=== PATIENT | female | born 1940 | race Caucasian/White ===

== ENCOUNTER → 2018-02-02 12:26 | Outpatient (CLI) | payer MEDICARE, SELFPAY ==
[2018-02-02 13:28] LABS: AST(SGOT) 16 U/L (15-37); Alanine Aminotransfer ALT/SGPT 22 U/L (13-56); Albumin, Serum 3.9 g/dL (3.2-5.0); Alkaline Phosphatase 76 U/L (45-117); Bilirubin, Direct 0.22 mg/dL (0.00-0.30); Cholesterol 163 mg/dL (200); Globulin 3.3 g/dL (2.2-4.2); High Density Lipoprotein 60 mg/dL; Protein, Total 7.2 g/dL (6.4-8.2); Triglycerides 207 mg/dL; Very Low Density Lipoprotein 41 mg/dL (5-40)
== END ==
PROVIDERS: Family Provider Internal Medicine; PCP Internal Medicine; Visit Provider Physician Assistant Medical
DX: E78.5 Hyperlipidemia, unspecified (principal); Z79.899 Other long term (current) drug therapy
CPT/HCPCS: 36415; 80061; 80076

== ENCOUNTER → 2018-07-01 16:36 | Outpatient (CLI) | payer MEDICARE, SELFPAY ==
[2018-07-01 17:35] LABS: Absolute Lymphocyte Count 1.42 X10^3/ul (0.83-4.51); Absolute Neutrophil Count 2.9 X10^3/uL (2.0-7.7); Basophil# 0.04 X10^3/uL; Basophil% 0.8 % (0-1); Eosinophil# 0.09 X10^3/uL; Eosinophils% 1.8 % (0-5); Hematocrit 41.8 % (37-47); Hemoglobin 13.4 g/dl (12.0-15.0); Lymphocyte # 1.42 X10^3/ul (4.0); Mean Corp Hgb Conc 32.1 g/gl (32-36); Mean Corpuscular Hgb 30.5 pg (27.0-32.0); Mean Platelet Vol. 10.2 fl (6.2-12.0); Monocyte# 0.48 X10^3/uL; Monocyte% 9.8 % (0-10); Neutrophil # 2.86 X10^3/uL (2.7-7.7); Neutrophil % 58.4 % (47-70); Platelet Count 183 K/mm3 (150-450); RBC Distribution Width CV 13.8 % (11.6-14.6); RBC Distribution Width SD 47.8 fl (35.1-43.9); White Blood Count 4.9 K/mm3 (4.4-11.0)
[2018-07-01 17:43] LABS: Prothrombin Time (Protime)PT. 13.3 SECONDS (11.7-14.9)
[2018-07-01 18:13] LABS: Anion Gap 9 (5-15); BUN 18 mg/dL (7-18); BUN/Creat Ratio 18.1 RATIO (10-20); Calcium,Total 9.3 mg/dL (8.5-10.1); Chloride 103 mmol/L (98-107); EST Glomerular Filtration Rate 58 mL/min (>60); Est Glom Filt Rate - Afr Amer 70 mL/min (>60); Glucose 114 mg/dL (74-106); Potassium 3.3 mmol/L (3.5-5.1); Sodium Level 140 mmol/L (136-145)
[2018-07-01 18:36] LABS: POSITIVE COUNT NO; POSITIVE DIFFERENTIAL NO; POSITIVE MORPHOLOGY NO
== END ==
PROVIDERS: Family Provider Internal Medicine; PCP Internal Medicine; Visit Provider Physician Assistant Medical
DX: I25.10 Atherosclerotic heart disease of native coronary artery without angina pectoris (principal); R06.09 Other forms of dyspnea; I10 Essential (primary) hypertension; E78.5 Hyperlipidemia, unspecified; R94.39 Abnormal result of other cardiovascular function study
CPT/HCPCS: 36415; 71046; 80048; 83880; 85025; 85610

== ENCOUNTER 2018-07-13 08:45 | Day surgery (SDC) | payer MEDICARE, SELFPAY ==
[2018-07-10 13:28] VITALS: BMI 28.3
--- NOTE | 2018-07-13 11:04 | CL.D_ITS ---
Patient Name: CONI ESTRADA Study Date: 07/13/2018 Performing: Parminder Tam MD Ht: 59.84 inches 152 cm : 1940 Wt: 145.51 lbs 66 kg Age: 78 Gender: female BSA: 1.63 PROCEDURE(S) PERFORMED [id number]/LV CLINICAL PROFILE AND INDICATIONS Indications: Stable Known CAD Heart Failure: None Stress/Imaging Stress Test w/SPECT MPI: Yes Result: Positive Low RiskStress Test with SPECT MPI: Positive Low Risk CAD Presentations: No Sxs, no angina. CONCLUSIONS Mild in-stent stenosis of the proximal right coronary artery stent with mild diffuse disease noted. RECOMMENDATIONS Medical therapy DESCRIPTION OF PROCEDURE The patient arrived to the procedure lab. The risks and benefits of the procedure as well as a full d escription of our services here and current unavailability of surgical backup were fully explained to the patient and/or their significant other prior to the catheterization. The Timeout was completed, verifying the correct patient and procedure. The patient's procedural site was prepped and draped in the usual fashion. Local anesthetic was given subcutaneously to right radial region with Lidocaine 2% . Using a modified Seldinger technique, arterial access was obtained via the right radial artery, a 6 Fr sheath was inserted. Left Coronary Artery selective angiography was performed in multiple views u sing a 5 Fr. 4.0 [place] catheter. Left Coronary Artery selective angiography was performed in multiple views using a 5 Fr. 4.0 [place] catheter. Right Coronary Artery selective angiography was then perform ed in multiple views using a 5 Fr. 4.0 [place] catheter. Left Ventriculography was performed in [place] pro jection using a 5 Fr. Pigtail catheter. LV to AO pullback pressures were then recorded.The arterial s victor manuel was pulled and manual compression applied until hemostasis is achieved. CORONARY ANGIOGRAPHY DOMINANCE: Right Dominant LEFT HEART ASSESSMENT Left Ventricular Ejection Fraction: by LV Gram 65 % Normal Left Ventricular systolic function LEFT MAIN: Angiographically normal LEFT ANTERIOR DECENDING ARTERY: MID LAD: Previously placed stent is patent DIAGONAL 1: Ostial - 60 % Stenosis CIRCUMFLEX ARTERY: Mild luminal irregularities RIGHT CORONARY ARTERY: PROX RCA: Previously placed stent has an instent 30 % restenosis RT PDA: Ostial - 70 % Stenosis COMPLICATIONS No Complications PROCEDURE MEDICATIONS Fentanyl 50 mcg IV Versed 1 mg IV Oxygen: 2 L/min via nasal cannula Heparin given IA 07/13/2018 10:37:14 Verapamil 2.5mg, Ntg 100mcgs, 2000 units of Heparin given IA 07/13/2018 10:37:14 SUMMARY OF HEMODYNAMIC DATA Time AIR REST ECG 10:17:47 AO 124/55 (86) SA 10:39:29 LV 126/1, 14 10:45:32 LV 144/3, 20 10:45:38 LV 138/6, 12 10:47:38 LV 139/4, 20 10:47:45 LVp 149/17, 47 10:47:52 AOp 157/69 (109) 10:47:57 Signed By Parminder Tam MD On 07/13/2018 11:03:50 AM Parminder Tam MD
== END 2018-07-13 13:52 | disposition home or self-care (01) ==
PROVIDERS: Family Provider Internal Medicine; PCP Internal Medicine; Visit Provider Internal Medicine Cardiovascular Disease
DX: I25.10 Atherosclerotic heart disease of native coronary artery without angina pectoris (principal); I10 Essential (primary) hypertension; E78.5 Hyperlipidemia, unspecified; I25.2 Old myocardial infarction; K21.9 Gastro-esophageal reflux disease without esophagitis; I27.21 Secondary pulmonary arterial hypertension; R00.2 Palpitations; R06.09 Other forms of dyspnea; R94.39 Abnormal result of other cardiovascular function study; Z95.5 Presence of coronary angioplasty implant and graft; Z87.891 Personal history of nicotine dependence
CPT/HCPCS: 93458; 99152; 99153; J7040; Q9967; C1769; C1894

== ENCOUNTER → 2019-11-10 14:33 | Outpatient (CLI) | payer MEDICARE, SELFPAY ==
[2019-11-10 12:04] VITALS: BMI 27.3
[2019-11-10 17:38] LABS: AST(SGOT) 16 U/L (15-37); Alanine Aminotransfer ALT/SGPT 29 U/L (13-56); Albumin, Serum 3.8 g/dL (3.2-5.0); Alkaline Phosphatase 82 U/L (45-117); Anion Gap 6 (5-15); BUN 19 mg/dL (7-18); BUN/Creat Ratio 18.1 RATIO (10-20); Calcium,Total 9.4 mg/dL (8.5-10.1); Chloride 106 mmol/L (98-107); Cholesterol 122 mg/dL (200); Creatinine, Serum 1.05 mg/dL (0.55-1.02); EST Glomerular Filtration Rate 54 mL/min (>60); Est Glom Filt Rate - Afr Amer 65 mL/min (>60); Globulin 3.3 g/dL (2.2-4.2); Glucose 123 mg/dL (74-106); High Density Lipoprotein 43 mg/dL; Potassium 3.7 mmol/L (3.5-5.1); Protein, Total 7.1 g/dL (6.4-8.2); Sodium Level 139 mmol/L (136-145); Triglycerides 227 mg/dL; Very Low Density Lipoprotein 45 mg/dL (5-40)
== END ==
PROVIDERS: Family Provider Internal Medicine; PCP Internal Medicine; Referring Provider Internal Medicine Cardiovascular Disease; Visit Provider Internal Medicine Cardiovascular Disease
DX: E78.00 Pure hypercholesterolemia, unspecified (principal); Z95.5 Presence of coronary angioplasty implant and graft
CPT/HCPCS: 36415; 80048; 80061; 80076

== ENCOUNTER → 2019-11-19 12:39 | Outpatient (CLI) | payer MEDICARE, SELFPAY ==
[2019-11-10 12:04] VITALS: BMI 27.3
--- NOTE | 2019-11-19 12:40 | CDU_ITS ---
Reason For Study: Stenosis Rt. Velocities/BP Lt. Velocities/BP Prox CCA 80.2/12.6 cm/sec. Prox CCA 50.9/14.6 cm/sec. Mid CCA 94.9/17.6 cm/sec. Mid CCA 67.3/22.3 cm/sec. Dist CCA 70.6/16.8 cm/sec. Dist CCA 54.2/16.83 cm/sec. Prox ICA 148.5/48 cm/sec. Prox ICA 78.3/20.1 cm/sec. Mid ICA 97.4/24.3 cm/sec. Mid ICA 138.9/38 cm/sec. Dist ICA 66.3/21.2 cm/sec. Dist ICA 137.5/29.8 cm/sec. Rt. ICA/CCA = 1.9. Lt. ICA/CCA = 2.6. Prox ECA 149.9/9.4 cm/sec. Lt. Vert. 86.4/22.5 cm/sec. Rt. Vert. 48.7/9.1 cm/sec. Right Extracranial There is homogeneous, smooth atherosclerotic plaque noted in the right common carotid artery. There is heterogeneous, irregular atherosclerotic plaque noted in the right internal carotid artery. There is heterogeneous, irregular atherosclerotic plaque noted in the right external carotid artery. Antegrade flow is noted in the right vertebral artery. There is heterogeneous, irregular atherosclerotic plaque noted in the right bulb. Left Extracranial There is heterogeneous, irregular atherosclerotic plaque noted in the left common carotid artery. There is intimal thickening but no significant atherosclerotic plaque noted in the left internal carotid artery. The left internal carotid artery is very tortuous. 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 Antegrade flow is noted in the left vertebral artery. Procedure Carotid Duplex [id number]. Exam performed in department. 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 <50% stenosis right external carotid Intimal thickening left internal carotid with 50-69% stenosis Occluded left external carotid Patent,antegrade bilateral vertebrals Progression of disease since the previous exam of 08/31/15 Ordering Physician: Parminder Tam Referring Physician: Demetrice Sung Performed By: Ninfa Angulo RVT
== END ==
PROVIDERS: PCP Internal Medicine; Referring Provider Internal Medicine Cardiovascular Disease; Visit Provider Internal Medicine Cardiovascular Disease
DX: I65.22 Occlusion and stenosis of left carotid artery (principal)
CPT/HCPCS: 93880

== ENCOUNTER → 2019-12-13 | Outpatient (CLI) | payer MEDICARE, SELFPAY ==
[2019-12-13 13:47] VITALS: BMI 27.3
--- NOTE | 2019-12-13 14:16 | RAD_ITS ---
STUDY: X-RAY CHEST REASON FOR EXAM: Female, 79 years old. ABNORMAL LUNG SOUNDS, CRACKLES LEFT SIDE, INTERMITTENT COUGH TECHNIQUE: PA and lateral views of the chest. COMPARISON: 07/01/2018 FINDINGS: The lungs are clear and expanded. There is no demonstrated pleural abnormality. Normal size heart. Normal mediastinum and hilton. Normal visualized pulmonary arteries. Normal visualized aortic arch and descending thoracic aorta. Normal visualized thoracic spine. Normal visualized ribs, clavicles, and shoulders. There is no demonstrated abnormality of the visualized soft tissue structures of the upper abdomen. RAD/Chest PA and Lateral IMPRESSION: Normal x-ray examination of the chest. Electronically Signed: Junito Urbina DO at 16:18 EST Tel , Service support ,
== END | disposition home or self-care (01) ==
LOC: RAD 14:16
PROVIDERS: PCP Internal Medicine; Referring Provider Surgery; Visit Provider Surgery
DX: R09.89 Other specified symptoms and signs involving the circulatory and respiratory systems (principal)
CPT/HCPCS: 71046

== ENCOUNTER → 2020-08-10 | Outpatient (CLI) | payer MEDICARE, SELFPAY ==
[2020-08-10 09:27] VITALS: BMI 26.8
--- NOTE | 2020-08-10 10:20 | RAD_ITS ---
STUDY: X-RAY CHEST REASON FOR EXAM: Female, 80 years old. intermittent anterior left sided CP x 1 month, some SOB TECHNIQUE: PA and lateral views of the chest. COMPARISON: 12/13/2019 FINDINGS: The lungs are clear and expanded. There is no demonstrated pleural abnormality. Normal size heart. Normal mediastinum and hilton. Normal visualized pulmonary arteries. Normal visualized aortic arch and descending thoracic aorta. Normal visualized thoracic spine. Normal visualized ribs, clavicles, and shoulders. There is no demonstrated abnormality of the visualized soft tissue structures of the upper abdomen. RAD/Chest PA and Lateral IMPRESSION: Normal x-ray examination of the chest. Electronically Signed: Ayaan Johnson MD at 13:52 EDT Tel , Service support ,
== END | disposition home or self-care (01) ==
LOC: RAD 10:20
PROVIDERS: PCP Internal Medicine; Visit Provider Physician Assistant Medical
DX: R07.9 Chest pain, unspecified (principal)
CPT/HCPCS: 71046

== ENCOUNTER → 2020-08-28 11:09 | Outpatient (CLI) | payer MEDICARE, SELFPAY ==
[2020-08-10 09:27] VITALS: BMI 26.8
--- NOTE | 2020-08-28 14:07 | STRESSREP ---
Stress Test Report Pharmacologic myocardial perfusion stress test. 80-year-old lady with a history of chest pain. Stress protocol: Resting KG demonstrates normal sinus rhythm with a rate of 83 bpm premature ventricular complexes are noted resting blood pressure is 140/80 mmHg. 0.4 mg of regadenoson was infused per usual protocol followed by Intravenous saline flush injection continuous EKG monitoring was performed. Patient maintained sinus rhythm with frequent premature ventricular complexes noted and occasional ventricular bigeminy present. Nonspecific ST-T wave changes were noted. The maximum heart rate was 131 bpm which was 92% of maximum predicted heart rate the maximum workload was 1met the final blood pressure was 150/70 mmHg. Myocardial perfusion protocol. 11.7 mCi of technetium 99m sestamibi was injected at rest. 0.4 mg of regadenoson was infused per usual protocol peak infusion 35.9 mCi of technetium 99m sestamibi was injected stress images were obtained stress and rest images were reconstructed and compared in the short axis vertical and horizontal long axis. Gated images were also obtained Perfusion SPECT analysis: Review of the stress images demonstrate normal uptake of tracer noted in all areas of myocardium the resting images similarly demonstrate normal uptake of tracer noted in all areas of myocardium. No reversibility is noted suggest ischemia. Gated SPECT analysis: The gated ejection fraction is 65%. Conclusion: Normal pharmacologic myocardial perfusion stress test. Preserved ejection fraction.
== END ==
PROVIDERS: PCP Internal Medicine; Referring Provider Physician Assistant Medical; Visit Provider Physician Assistant Medical
DX: I25.10 Atherosclerotic heart disease of native coronary artery without angina pectoris (principal); R07.9 Chest pain, unspecified
CPT/HCPCS: 78452; 93017; A9500; A4216; J2785

== ENCOUNTER 2020-10-10 10:01 | Observation (INO) | payer MEDICARE, SELFPAY ==
[2020-08-29 09:35] VITALS: BMI 26.8
[2020-10-10] VITALS (9 sets, daily range): BP systolic 140–191; BP diastolic 44–97; PULSE 61–82; RESP 16–20; TEMP 36.4–36.7; O2SAT 95–98; BMI 26.4; BMI 27.0
--- NOTE | 2020-10-10 10:05 | EKG12_ITS ---
Test Reason : CP Blood Pressure : / mmHG Vent. Rate : 081 BPM Atrial Rate : 081 BPM P-R Int : 098 ms QRS Dur : 070 ms QT Int : 374 ms P-R-T Axes : 040 007 002 degrees QTc Int : 434 ms Sinus rhythm with short TX with occasional and consecutive Premature ventricular complexes Possible Left atrial enlargement Nonspecific ST and T wave abnormality Abnormal ECG Confirmed by DELFINA MAGANA, MARISOL ([id number]), medical editor LOYDA HAIR ([id number]) on 10/19/2020 12:32:43 PM Referred By: ROSSANA/LULY Confirmed By:BRIAN MATHIS MD
--- NOTE | 2020-10-10 10:18 | EKG12_ITS ---
Test Reason : Blood Pressure : / mmHG Vent. Rate : 084 BPM Atrial Rate : 084 BPM P-R Int : 140 ms QRS Dur : 074 ms QT Int : 380 ms P-R-T Axes : 059 018 -22 degrees QTc Int : 449 ms Sinus rhythm with occasional Premature ventricular complexes Nonspecific ST and T wave abnormality Abnormal ECG Confirmed by NARGIS MAGANA, RHETT ([id number]), newspaper copy editor ANGEL LUIS NINO ([id number]) on 10/12/2020 8:27:37 AM Referred By: EFRAIN Confirmed By:RHETT BARILLAS MD
--- NOTE | 2020-10-10 10:22 | ED.DCSUM_ITS ---
History of Present Illness Chief Complaint: Chest Pain Informant: Patient Narrative: Patient is a 80-year-old female with a past medical history of CAD with stents placed who presents to the emergency department for chest pain on the left side. It started this morning. She tried taking nitro which did not give significant relief. She is currently complaining of 5 out of 10 pain. It initially might have went up to on the left side of her neck but otherwise no radiation to her back or down her arms. She denies any nausea vomiting. She is on Plavix and aspirin did take this prior to coming in today. No abdominal pain. No swelling in her legs or pain in her cast. She has no history of DVT/PE. She denies any recent illness including any cough or fever/chills. She did have a stress test a little over 1 month ago which she states was normal. Past Medical History - Allergies and Home Meds Allergies/Adverse Reactions: Allergies hydrocodone bitartrate [From Vicodin] Adverse Reaction (Verified 08/29/20 09:31) Other metronidazole Adverse Reaction (Verified 08/29/20 09:31) nausea Prior records reviewed: Yes Surgical History: appendectomy, colectomy Smoking Status: Former smoker - Family History Paternal Family History: Family History (Last Reviewed 08/30/20 @ 10:[address] Daniel Block MD) Father Cancer Review of Systems All systems negative except as indicated General: Denies: Chills, Fever, Sweats Eyes: Denies: Visual changes - bilaterally, Diplopia ENT: Denies: Rhinorrhea, Sore throat Cardiovascular: Reports: Chest pain. Denies: Palpitations Respiratory: Denies: Dyspnea, Cough, Dyspnea on exertion Gastrointestinal: Denies: Abdominal pain, Nausea, Vomiting, Diarrhea Genitourinary: Denies: Dysuria, Hematuria, Frequency Musculoskeletal: Denies: Back pain, Extremity Pain Skin: Denies: Rash, Wounds Neurological: Denies: Headache, Weakness, Numbness Physical Exam Vital Signs/Narrative: Vital Signs Temp Pulse Resp BP Pulse Ox 10/10/20 10:03 97.6 F L 78 20 H 185/83 H 96 Inital Vital Signs reviewed: Yes General: Well nourished, Well developed, No Acute Distress Head: Normocephalic, Atraumatic Eyes: Perrl, EOMI ENT: Moist mucous membranes, No rhinorrhea Neck: Supple, Nontender Cardiovascular: Regular rate, Regular rhythm, No murmurs Respiratory: No distress, CTA bilaterally, Chest nontender Abdomen: Soft, Nontender, Nondistended, Normal bowel sounds Back: Nontender, Normal Inspection Extremities: Nontender, Edema - Trace bilaterally of lower extremities, symmetrical.. Negative for: Calf Tenderness Skin: Normal color, No rash Neurological: Alert, Oriented x3, Cranial nerves II-XII grossly intact, Normal Strength, Normal Sensation Psychological: Normal affect, Normal Mood Diagnostic/Tx/Re-eval Chest X-Ray - ED: - - Clear lung tomas bilaterally. Enlarged cardiac silhouette. Normal mediastinum. Agree with radiologist interpretation. - EKG Initial EKG Interpretation: - - EKG interpretation: Rate of 81 bpm and a normal sinus rhythm. DE interval of 98. PVCs present. Normal axis. No significant ST elevations or depressions. - Medical Decision Making Patient presents to the ED for chest pain. She does have a history of CAD with 2 stents. Upon arrival to the emerge department she is in no acute distress. Still complaining of pain despite taking nitro. Will check EKG, chest x-ray and basic lab work. Patient's troponin within normal limits. She is given a dose of morphine for symptomatic treatment. Given her history of CAD with active chest pain will bring her to the hospital for further evaluation and management. She otherwise has been stable throughout ED stay. Patient understands and is agreeable this plan. All questions answered. ED Disposition - Plan for ED Patient: Disposition: Acute Care Hospital [facility] Diagnosis: Unstable angina
[2020-10-10 10:31] LABS: Absolute Lymphocyte Count 1.51 X10^3/uL (0.83-4.51); Absolute Neutrophil Count 5.3 X10^3/uL (2.0-7.7); Basophil# 0.05 X10^3/uL; Basophil% 0.7 % (0-1); Eosinophil# 0.04 X10^3/uL; Eosinophils% 0.5 % (0-5); Hematocrit 48.1 % (37-47); Hemoglobin 15.7 g/dL (12.0-15.0); Lymphocyte # 1.51 X10^3/ul (4.0); Lymphocyte % 20.6 % (19-41); Mean Corp Hgb Conc 32.6 g/dL (32-36); Mean Corpuscular Hgb 30.7 pg (27.0-32.0); Mean Corpuscular Volume 93.9 fL (81-99); Mean Platelet Vol. 11.8 fl (6.2-12.0); Monocyte# 0.39 X10^3/uL; Monocyte% 5.3 % (0-10); NRBC Flagged by Analyzer 0 % (0-5); Neutrophil # 5.33 X10^3/uL (2.7-7.7); Neutrophil % 72.6 % (47-70); Platelet Count 148 K/mm3 (150-450); RBC Distribution Width CV 13.8 % (11.6-14.6); RBC Distribution Width SD 46.7 fl (35.1-43.9); Red Blood Count 5.12 M/mm3 (4.2-5.4); White Blood Count 7.3 K/mm3 (4.4-11.0)
--- NOTE | 2020-10-10 10:35 | RAD_ITS ---
STUDY: X-RAY CHEST REASON FOR EXAM: Female, 80 years old. CHEST PAINS HX OF PR PER PATIENT. TECHNIQUE: Single AP portable view of the chest. COMPARISON: None. FINDINGS: EKG electrodes are seen. Hyperinflation. The lungs are clear. There is no demonstrated pleural abnormality. Normal size heart. Normal mediastinum and hilton. Normal visualized pulmonary arteries. There is atherosclerotic calcification of the aortic arch with tortuosity. There are degenerative changes of the visualized thoracic spine. Normal visualized ribs, clavicles, and shoulders. There is no demonstrated abnormality of the visualized soft tissue structures of the upper abdomen. RAD/Chest 1 View (Portable) IMPRESSION: Hyperinflation. The lungs are clear. Electronically Signed: Ameya Singh, at 11:07 EST , Service support ,
[2020-10-10 10:49] LABS: Anion Gap 6 (5-15); BUN 20 mg/dL (7-18); BUN/Creat Ratio 20.4 RATIO (10-20); Calcium,Total 9.6 mg/dL (8.5-10.1); Chloride 105 mmol/L (98-107); Creatinine, Serum 0.98 mg/dL (0.55-1.02); EST Glomerular Filtration Rate 58 mL/min (>60); Est Glom Filt Rate - Afr Amer 71 mL/min (>60); Glucose 130 mg/dL (74-106); Potassium 3.7 mmol/L (3.5-5.1); Sodium Level 141 mmol/L (136-145)
[2020-10-10] MEDS: Morphine 4 MG/ML Syringe 2 MG IV (10:56)
--- NOTE | 2020-10-10 11:49 | NURSING ---
DR ZUNIGA FOR DR TRACY
--- NOTE | 2020-10-10 11:54 | NURSING ---
PCU RIZWANA ZUNIGA OBS
--- NOTE | 2020-10-10 11:54 | NURSING ---
DR ZUNIGA IN ER
--- NOTE | 2020-10-10 12:17 | PCM.HP.STD ---
Problem List (1) Unstable angina Status: Acute (2) Hx of cataract extraction Status: Chronic Comment: Left eye (3) Bilateral carotid artery stenosis Status: Chronic (4) History of esophagogastroduodenoscopy (EGD) Status: Chronic (5) Diverticulosis Status: Chronic (6) Hemorrhoids Status: Chronic (7) History of bacterial pneumonia Status: Resolved (8) Osteoarthritis Status: Chronic (9) Carotid artery stenosis Status: Chronic (10) History of Helicobacter pylori infection Status: Resolved (11) Renal cysts, acquired, bilateral Status: Chronic (12) LVH (left ventricular hypertrophy) Status: Chronic (13) Celiac artery stenosis Status: Chronic (14) Dysphagia Status: Acute (15) History of excision of pilonidal cyst Status: Resolved (16) History of laparoscopic cholecystectomy Status: Resolved (17) History of laparoscopic appendectomy Status: Resolved (18) History of tubal ligation Status: Resolved (19) History of hysterectomy Status: Resolved (20) historybladder surgery Status: Resolved (21) History of bladder surgery Status: Resolved (22) GERD (gastroesophageal reflux disease) Status: Chronic Qualifiers: Esophagitis presence: with esophagitis Esophagitis bleeding: without hemorrhage Qualified Code(s): K21.00 - Gastro-esophageal reflux disease with esophagitis, without bleeding (23) History of left heart catheterization Status: Resolved (24) Atherosclerotic heart disease of [place] coronary artery without angina pectoris Status: Chronic Qualifiers: [place] vs. transplanted heart: [place] heart Qualified Code(s): I25.10 - Atherosclerotic heart disease of [place] coronary artery without angina pectoris Comment: PCI-JUAN-Mid LAD 3.0 x 20 mm Promus and Right PDA 2.5 x 12 mm Promus 12/07/2012 (25) NSTEMI (non-ST elevated myocardial infarction) Status: Chronic (26) History of coronary artery stent placement Status: Chronic Comment: PCI-JUAN-LAD 3.0 x 20 mm Promus and Right PDA 2.5 x 12 mm Promus 12/07/2012 (27) Essential (primary) hypertension Status: Chronic (28) Secondary pulmonary arterial hypertension Status: Chronic (29) HLD (hyperlipidemia) Status: Chronic Qualifiers: Hyperlipidemia type: pure hypercholesterolemia Qualified Code(s): E78.00 - Pure hypercholesterolemia, unspecified (30) Left carotid stenosis Status: Chronic (31) Carotid bruit Status: Chronic History of Present Illness Date of Admission: 10/10/20 Chief Complaint: Chest pain in the morning today The patient is a 80 year old F with history of coronary artery disease status post stent in mid LAD and proximal RCA in 2012 came to ED with sudden onset of left-sided chest pressure with radiation to left carotid. She described her pain as vague pressure-like 3-4/10 intensity, with no exacerbating factor or relieving factor. It did not respond to sublingual nitro. She also had associated mild shortness of breath, dizziness and nausea but no vomiting. No syncope. She had cardiac cath in June [address] Tam which showed D1 ostial 60%, proximal RCA in-stent 30%, ostial right PDA 70% stenosis and medical therapy was recommended. She saw [facility] cardiology in July 2020 for chest pain and had pharmacological nuclear stress test which was negative EF 65%.. She further had stress test in August 2020 which is reported as normal. She also had epigastric pain for which her PCP treated with Carafate.] In ED, BP is elevated 185/83, 171/82 but heart rate and pulse ox are normal. EKG shows normal sinus rhythm with PVCs, with short NV interval 98 ms with no significant change from. Previous EKG in July 2020 was similar sinus rhythm short NV interval, frequent PVCs with left atrial enlargement. Past Medical History Past Medical History (Chronic Problems): Chronic Problems (Last Reviewed 08/30/20 @ 10:[address] Daniel Block MD) Hx of cataract extraction (Chronic) Left eye Bilateral carotid artery stenosis (Chronic) History of esophagogastroduodenoscopy (EGD) (Chronic) Diverticulosis (Chronic) Hemorrhoids (Chronic) Osteoarthritis (Chronic) Carotid artery stenosis (Chronic) Renal cysts, acquired, bilateral (Chronic) LVH (left ventricular hypertrophy) (Chronic) Celiac artery stenosis (Chronic) GERD (gastroesophageal reflux disease) (Chronic) Atherosclerotic heart disease of [place] coronary artery without angina pectoris (Chronic) PCI-JUAN-Mid LAD 3.0 x 20 mm Promus and Right PDA 2.5 x 12 mm Promus 12/07/2012 NSTEMI (non-ST elevated myocardial infarction) (Chronic) History of coronary artery stent placement (Chronic 12/07/12) PCI-JUAN-LAD 3.0 x 20 mm Promus and Right PDA 2.5 x 12 mm Promus 12/07/2012 Essential (primary) hypertension (Chronic) Secondary pulmonary arterial hypertension (Chronic) HLD (hyperlipidemia) (Chronic) Left carotid stenosis (Chronic) Carotid bruit (Chronic) Medical History: Medical History (Last Reviewed 08/30/20 @ 10:[address] Daniel Block MD) Bilateral carotid artery stenosis (Acute) I65.23 Diverticulosis (Chronic) K57.90 Hemorrhoids (Chronic) K64.9 History of bacterial pneumonia (Resolved) Z87.01 Osteoarthritis (Chronic) M19.90 Carotid artery stenosis (Chronic) I65.29 History of Helicobacter pylori infection (Resolved) Z86.19 Renal cysts, acquired, bilateral (Chronic) N28.1 LVH (left ventricular hypertrophy) (Chronic) I51.7 Celiac artery stenosis (Chronic) I77.4 Dysphagia (Acute) R13.10 GERD (gastroesophageal reflux disease) (Chronic) K21.9 Atherosclerotic heart disease of [place] coronary artery without angina pectoris (Chronic) I25.10 PCI-JUAN-Mid LAD 3.0 x 20 mm Promus and Right PDA 2.5 x 12 mm Promus 12/07/2012 NSTEMI (non-ST elevated myocardial infarction) (Chronic) I21.4 Essential (primary) hypertension (Chronic) I10 Secondary pulmonary arterial hypertension (Chronic) I27.21 HLD (hyperlipidemia) (Chronic) E78.5 Left carotid stenosis (Chronic) I65.22 Carotid bruit (Chronic) R09.89 Acute right hip pain M25.551 Allergies hydrocodone bitartrate [From Vicodin] Adverse Reaction (Verified 08/29/20 09:31) Other metronidazole Adverse Reaction (Verified 08/29/20 09:31) nausea Home Medications: Ambulatory Orders Medication Instructions Recorded Aspirin E.C. [Ecotrin] 81 mg PO DAILY@0800 12/27/13 Atorvastatin Calcium [Lipitor] 40 mg PO QHS 12/27/13 Lisinopril [Zestril] 10 mg PO DAILY 12/27/13 Clopidogrel Bisulfate [Plavix] 75 mg PO DAILY 01/12/17 pantoprazole 40 mg tablet,delayed 40 mg PO BID tab 10/06/18 release psyllium 1 tbsp PO DAILY 03/19/19 nystatin 100,000 unit/gram topical TOPICAL 11/10/19 powder isosorbide mononitrate 60 mg 60 mg PO DAILY #90 tab 08/10/20 tablet,extended release 24 hr olopatadine 0.2 % eye drops 1 drp OPHTHALMIC DAILY 08/29/20 peg 400-propylene glycol 0.4 %-0.3 1 drp OPHTHALMIC BID-TID PRN ml 08/29/20 % eye drops vit C 250 mg-E 200 unit-zinc 40 1 tab PO BID 08/29/20 mg-copper 1 tc-bhbipy-fnbiyt capsule nitroglycerin 0.4 mg sublingual 0.4 mg SUBLINGUAL Q5-15M PRN #25 09/25/20 tablet tab Vit C/E/Zn/Coppr/Lutein/Zeaxan 1 ea PO BID 10/10/20 [Preservision Areds 2 Softgel] Surgical History: Surgical History (Last Reviewed 08/30/20 @ 10:[address] Daniel Block MD) Hx of cataract extraction (Acute) Z98.49 Left eye History of esophagogastroduodenoscopy (EGD) (Acute) Z98.890 History of excision of pilonidal cyst (Resolved) Z98.890 History of laparoscopic cholecystectomy (Resolved) Z90.49 History of laparoscopic appendectomy (Resolved) Z90.49 History of tubal ligation (Resolved) Z98.51 History of hysterectomy (Resolved) Z90.710 historybladder surgery (Resolved) History of bladder surgery (Resolved) Z98.890 History of left heart catheterization (Resolved) Onset Date: 06/2018 Z98.890 History of coronary artery stent placement (Chronic) Onset Date: 12/07/12 Z95.5 PCI-JUAN-LAD 3.0 x 20 mm Promus and Right PDA 2.5 x 12 mm Promus 12/07/2012 Surgical History: appendectomy, colectomy Smoking Status: Former smoker - *Family History Paternal Family History: Family History (Last Reviewed 08/30/20 @ 10:[address] Daniel Block MD) Father Cancer Review of Systems Constitutional: Denies: Chills, Fever, Weight Change HEENT: Denies: Head Aches, Sinus Congestion, Sinus Drainage Cardiovascular: Reports: Chest Pain, Chest Pressure. Denies: Palpitations Respiratory: Denies: Cough, Shortness of breath at rest, Sputum production Gastrointestinal: Denies: Abdominal Pain, Nausea, Vomiting Genitourinary: Denies: Dysuria Musculoskeletal: Denies: Joint Pain, Joint Tenderness Skin: Denies: Rash, Wounds Neurological: Reports: Balance problems. Denies: Focal weakness, Numbness, Tingling Psychiatric: Denies: Anxiety, Depression, Homicidal Ideations, Suicidal Ideations Hematologic/ Lymphatic: Denies: Easy Bruising, Easy Bleeding VTE Information - Inpt Only VTE Present on Admission: No VTE Mechan Device Prophylaxis: None VTE Pharm Prophylaxis ordered?: Yes Objective: Physical exam General: Alert, Oriented x3, Cooperative HEENT: Atraumatic, PERRLA, EOMI, Normocephalic Oral: No Gingival or Mucosal Lesions/ Ulcerations Neck: Supple, No JVD, Negative Carotid Bruits Lungs: Air entry diminished in bilateral lung bases. No crepitation/rhonchi Cardiovascular: Regular rate, Regular Rhythm, Normal S1, Normal S2, frequent PVCs. Midsystolic murmur over left lower sternal border. Abdomen: Bowel Sounds Present, Soft, Non Tender, Non-Distended : No renal angle tenderness. No suprapubic tenderness. Extremities: No edema, Capillary Refill Less than 3 Seconds Skin: No rashes, No breakdown Musculoskeletal: No Tenderness to Palpation of Joints or Extremities Neurological: Cranial nerves II-XII grossly intact, Deep Tendon Reflexes 2+/4 and Symmetrical, Neuro grossly intact Psych/Mental Status: Normal Affect, Appropriate. - Physical Exam Vitals/I&O's: Vital Signs Temp Pulse Resp BP Pulse Ox 97.8 F 72 20 H 171/82 H 97 10/10/20 12:11 10/10/20 12:11 10/10/20 12:11 10/10/20 12:11 10/10/20 12:11 Oxygen Delivery Method Room Air Weight: 140 lb Body Mass Index (BMI) 26.4 Laboratory Results 10/10/20 10:10: WBC 7.3, RBC 5.12, Hgb 15.7 H, Hct 48.1 H, MCV 93.9, MCH 30.7, MCHC 32.6, RDW Std Deviation 46.7 H, RDW Coeff of [place] 13.8, Plt Count 148 L, MPV 11.8, Immature Gran % (Auto) 0.300, Neut % (Auto) 72.6 H, Lymph % (Auto) 20.6, [place] % (Auto) 5.3, Eos % (Auto) 0.5, Baso % (Auto) 0.7, Absolute Neuts (auto) 5.3, Absolute Lymphs (auto) 1.51, Nucleated RBC % 0 10/10/20 10:10: Sodium 141, Potassium 3.7, Chloride 105, Carbon Dioxide 30.0, Anion Gap 6, BUN 20 H, Creatinine 0.98, Estim Creat Clear Calc 35.70, Est GFR (MDRD) Af Amer 71, Est GFR (MDRD) Non-Af 58 L, BUN/Creatinine Ratio 20.4 H, Glucose 130 H, Calcium 9.6, Magnesium 2.0, Troponin I < 0.015 Current Medications Nitroglycerin (Nitroglycerin Oint 1 Inch Packet) 1 inch TD Q6 JUAN A Stop: 10/11/20 18:01 Assessment/Plan All Active Problems (Last Reviewed 08/30/20 @ 10:[address] Daniel Block MD) Unstable angina (Acute) History of bacterial pneumonia (Resolved) History of Helicobacter pylori infection (Resolved) Dysphagia (Acute) History of excision of pilonidal cyst (Resolved) History of laparoscopic cholecystectomy (Resolved) History of laparoscopic appendectomy (Resolved) History of tubal ligation (Resolved) History of hysterectomy (Resolved) historybladder surgery (Resolved) History of bladder surgery (Resolved) History of left heart catheterization (Resolved 06/2018) The patient is a 80 year old F with history of coronary artery disease status post stent in mid LAD and proximal RCA in 2012 came to ED with sudden onset of left-sided chest pressure with radiation to left carotid along with shortness of breath and dizziness and nausea EKG shows normal sinus rhythm with PVCs, with short NV interval 98 ms with no significant change from. Previous EKG in July 2020 was similar sinus rhythm short NV interval, frequent PVCs with left atrial enlargement. 1. Atypical chest pain with suspicion of unstable angina: Patient is being admitted in PCU. Serial troponin enzymes and repeat EKG. nitroglycerin ointment ordered in ER. Will change to Isordil 10 mg p.o. twice daily and titrate up the dose. Patient had recent pharmacological nuclear stress test in about 2019 which was reported normal. BNP, TSH, fasting profile and 2D echo is ordered. 2. Hypertensive urgency: Patient on lisinopril 10 mg daily at home and uptitrate.. Hydralazine 10 mg IV as needed for systolic blood pressure more than 180 mmHg. Coronary artery status post stents in mid LAD and proximal RCA in 2012: cardiac cath in June [address] Tam which showed D1 ostial 60%, proximal RCA in-stent 30%, ostial right PDA 70% stenosis and medical therapy was recommended. She saw [facility] cardiology in July 2020 for chest pain and had pharmacological nuclear stress test which was negative EF 65%. We will continue medical management with aspirin, Plavix, atorvastatin, lisinopril. Patient is not on beta-daniele at home, reason unclear. 3. Peripheral arterial disease: Patient has history of bilateral carotid stenosis, celiac artery stenosis. 4. Other comorbidities include GERD, hypertension, dyslipidemia, diverticulosis and hemorrhoids: Home medication reconciliation done. VTE prophylaxis: On Lovenox 40 mils subcu daily Clinical Impression(s) from Imaging Studies Chest X-Ray 10/10/20 10:35 IMPRESSION: Hyperinflation. The lungs are clear. OBSV E&M: 58774 Observation care discharge
--- NOTE | 2020-10-10 12:34 | ECHOD_ITS ---
Reason For Study: CHEST PAIN Procedure This was a 2D Doppler, Color Flow transthoracic echocardiogram. The exam was of adequate technical quality. Exam performed portable in patient room. Left Ventricle Normal LV size. Left ventricular systolic function is normal. The estimated ejection fraction is 65 %. There is evidence of diastolic dysfunction. No regional wall motion abnormalities noted. Right Ventricle Normal RV size. Normal systolic function. Atria The left atrium is mildly enlarged. Normal right atrium. No doppler evidence for ASD. Mitral Valve There is no mitral annular calcification. Normal mitral valve. Mild (1+) mitral valve insufficiency. Tricuspid Valve Normal tricuspid valve. Moderate (2+) tricuspid valve insufficiency. Right ventricular systolic pressure estimated to be 49 mmHg. Aortic Valve Trisinus/trileaflet aortic valve. Normal aortic valve. Pulmonic Valve The pulmonic valve is not well visualized. Great Vessels Normal sized aortic root. Pericardium/Pleural No pericardial effusion. MMode/2D Measurements & Calculations LVIDd: 4.4 cm IVSd: 1.2 cm Ao root diam: 3.2 cm LVIDs: 3.3 cm LVPWd: 1.3 cm RVDd: 3.0 cm FS: 25.8 % LAV(MOD-bp): 62.7 ml LVAd ap4: 23.1 cm2 SV(MOD-sp4): 35.5 ml LAV(MOD-bp) Indexed: 38.6 ml/m2 EDV(MOD-sp4): 65.4 ml LAV(MOD-sp2): 67.9 ml EDV(sp4-el): 66.9 ml LAV(MOD-sp4): 53.9 ml LVAs ap4: 13.7 cm2 ESV(MOD-sp4): 29.9 ml ESV(sp4-el): 27.6 ml EF(MOD-sp4): 54.3 % EF(sp4-el): 58.8 % SV(sp4-el): 39.4 ml LA A4 area: 20.0 cm2 LA dimension(2D): 3.6 cm RA A4 area: 16.6 cm2 Time Measurements MV dec time: 0.20 sec Doppler Measurements & Calculations MV E max efe: 82.1 cm/sec Lat Peak E' Efe: 6.3 cm/sec Med Peak E' Efe: 5.9 cm/sec MV A max efe: 125.2 cm/sec E/E' lat: 13.1 E/E' med: 13.8 MV E/A: 0.66 MV V2 max: 124.4 cm/sec Ao V2 max: 142.8 cm/sec LV V1 max: 86.9 cm/sec MV max P.2 mmHg Ao max P.2 mmHg LV V1 max P.0 mmHg MV V2 mean: 79.6 cm/sec MV mean P.8 mmHg MV V2 VTI: 29.2 cm PA V2 max: 85.7 cm/sec TR max efe: 338.6 cm/sec MV P1/2t-pr_phl: 92.1 msec TR max P.2 mmHg Interpretation Summary Left ventricular systolic function is normal. The estimated ejection fraction is 65 %. The left atrium is mildly enlarged. Mild (1+) mitral valve insufficiency. Moderate (2+) tricuspid valve insufficiency. Right ventricular systolic pressure estimated to be 49 mmHg. There is evidence of diastolic dysfunction. Ordering Physician: Den Huitron Referring Physician: ANITA FREEMAN Performed By: Gem Peralta, OLIVIA, RVT
[2020-10-10] MEDS: hydrALAZINE 20 MG/ML Vial 10 MG IV (13:01)
[2020-10-10] MEDS: Enoxaparin 40 MG/0.4 ML Syringe SC (13:08)
[2020-10-10] MEDS: proCHLORPERazine 10 MG/2 ML Vial 5 MG IV (13:48)
--- NOTE | 2020-10-10 14:16 | CT_ITS ---
STUDY: CTA CHEST REASON FOR EXAM: Female, 80 years old. CP, ? AORTIC DISSECTION, CAROTID STENOSIS, CELIAC ARTERY DZ, DIVERTICULITIS, HYSTER, BLADDER SURG, HTN, UNSTABLE ANGINA RADIATION DOSAGE (If Supplied By Facility): CTDIvol = ( 11.3 ) mGy, DLP = ( 414.36 ) mGycm TECHNIQUE: The examination was performed with the intravenous administration of IV 100mL [id number]-370. Post-processing of the angiographic images was performed, with multiplanar reformation and 3D reconstruction. Individualized dose optimization techniques were used for this CT. COMPARISON: None. FINDINGS: 4 mm hypodensity in the left lobe of the thyroid. Mild substernal extension of the right lobe of the thyroid. Normal enhancement of the main pulmonary artery and right and left pulmonary arteries. Normal enhancement of the bilateral peripheral pulmonary arteries. There is no demonstrated pulmonary embolism. There is atherosclerotic calcification of the aortic arch and descending thoracic aorta with tortuosity. There is no demonstrated aortic dissection. There are calcifications of the coronary arteries. Normal mediastinum. Normal hilar regions. Normal visualized trachea and bronchi. The lungs are well expanded. Mild degree of increased linear markings at the lung bases suggestive of early atelectasis and/or scarring. Normal pleura. Normal chest wall structures. There are degenerative changes of thoracic spine. Normal visualized upper abdomen. CT/CTA Chest W/WO Contrast IMPRESSION: Atherosclerotic changes of the aortic arch and the descending thoracic aorta. Mild scarring at the left lung apex and lung bases. Electronically Signed: Ameya Singh, at 16:01 EST , Service support ,
--- NOTE | 2020-10-10 16:43 | PCM.CONS.C ---
Problem List (1) Chest pain Status: Acute (2) CAD (coronary artery disease) Status: Chronic Qualifiers: Coronary Disease-Associated Artery/Lesion type: [place] artery [place] vs. transplanted heart: jackson heart (3) History of coronary artery stent placement Status: Chronic Comment: PCI-JUAN-LAD 3.0 x 20 mm Promus and Right PDA 2.5 x 12 mm Promus 12/07/2012 (4) HLD (hyperlipidemia) Status: Chronic Qualifiers: Hyperlipidemia type: pure hypercholesterolemia Qualified Code(s): E78.00 - Pure hypercholesterolemia, unspecified (5) Essential (primary) hypertension Status: Chronic (6) Bilateral carotid artery stenosis Status: Chronic Reason for Consult Date of Consultation: 10/10/20 History of Present Illness: The patient is a 80 year old white female with a past cardiovascular history including hyperlipidemia, hypertension, CAD, status post previous PCI to the LAD and RCA systems, superimposed upon carotid artery disease, who is referred for evaluation of chest discomfort. She has been undergoing evaluation recently as an outpatient with respect to a combination of chest and epigastric discomfort. This has led to a recent exercise tolerance test/imaging study. This was considered to be negative for evidence of ongoing myocardial ischemia. She states she presented to the hospital based upon concerns of chest discomfort in her left upper chest area. Then she noted recurrent epigastric discomfort. She did not have any acute respiratory related issues. There was no orthopnea or PND or reported peripheral pitting edema. She has had no near syncope or syncope. She was bring with her her blood pressure recordings. Her blood pressures at home have been under reasonably good control until today. Today she was hypertensive. As part of her evaluation care she did receive antihypertensive therapy with IV hydralazine to assist in bringing her blood pressures under better control. She states after she arrived in the PCU she was allowed to eat. After doing so she had recurrent epigastric discomfort, felt nauseated, felt somewhat diaphoretic, and was subsequently noted to be bradycardic and hypotensive. Her cardiac rhythm strip suggested sinus bradycardia/ectopic atrial bradycardia. She was treated with IV fluids. She had resolution of her hypotension. Based upon concerns of her symptoms and her hemodynamic changes there was concern as to whether or not she may have had any great vessel related disease. Thus she underwent chest CT scan. This was considered negative for thromboembolic disease or any great vessel disease such as aortic aneurysm/dissection. At the moment she states she is resting comfortably. She has had no other new acute symptoms. Troponin I levels have been repeated x3 and have remained negative. Her ECG was repeated earlier and did not appear to demonstrate any acute ECG changes. [] Past Medical History Allergies/Adverse Reactions: Allergies hydrocodone bitartrate [From Vicodin] Adverse Reaction (Verified 08/29/20 09:31) Other metronidazole Adverse Reaction (Verified 08/29/20 09:31) nausea Home Medications: Ambulatory Orders Medication Instructions Recorded Aspirin E.C. [Ecotrin] 81 mg PO DAILY@0800 12/27/13 Atorvastatin Calcium [Lipitor] 40 mg PO QHS 12/27/13 Lisinopril [Zestril] 10 mg PO DAILY 12/27/13 Clopidogrel Bisulfate [Plavix] 75 mg PO DAILY 01/12/17 pantoprazole 40 mg tablet,delayed 40 mg PO BID tab 10/06/18 release psyllium 1 tbsp PO DAILY 03/19/19 nystatin 100,000 unit/gram topical TOPICAL 11/10/19 powder isosorbide mononitrate 60 mg 60 mg PO DAILY #90 tab 08/10/20 tablet,extended release 24 hr olopatadine 0.2 % eye drops 1 drp OPHTHALMIC DAILY 08/29/20 peg 400-propylene glycol 0.4 %-0.3 1 drp OPHTHALMIC BID-TID PRN ml 08/29/20 % eye drops vit C 250 mg-E 200 unit-zinc 40 1 tab PO BID 08/29/20 mg-copper 1 [id number] capsule nitroglycerin 0.4 mg sublingual 0.4 mg SUBLINGUAL Q5-15M PRN #25 09/25/20 tablet tab Vit C/E/Zn/Coppr/Lutein/Zeaxan 1 ea PO BID 10/10/20 [Preservision Areds 2 Softgel] Past Medical History (Chronic Problems): Chronic Problems (Last Reviewed 08/30/20 @ 10:[address] Daniel Block MD) CAD (coronary artery disease) (Chronic) Hx of cataract extraction (Chronic) Left eye Bilateral carotid artery stenosis (Chronic) History of esophagogastroduodenoscopy (EGD) (Chronic) Diverticulosis (Chronic) Hemorrhoids (Chronic) Osteoarthritis (Chronic) Carotid artery stenosis (Chronic) Renal cysts, acquired, bilateral (Chronic) LVH (left ventricular hypertrophy) (Chronic) Celiac artery stenosis (Chronic) GERD (gastroesophageal reflux disease) (Chronic) Atherosclerotic heart disease of [place] coronary artery without angina pectoris (Chronic) PCI-JUAN-Mid LAD 3.0 x 20 mm Promus and Right PDA 2.5 x 12 mm Promus 12/07/2012 NSTEMI (non-ST elevated myocardial infarction) (Chronic) History of coronary artery stent placement (Chronic 12/07/12) PCI-JUAN-LAD 3.0 x 20 mm Promus and Right PDA 2.5 x 12 mm Promus 12/07/2012 Essential (primary) hypertension (Chronic) Secondary pulmonary arterial hypertension (Chronic) HLD (hyperlipidemia) (Chronic) Left carotid stenosis (Chronic) Carotid bruit (Chronic) Surgical History: appendectomy, colectomy - *Family History Paternal Family History: Family History (Last Reviewed 08/30/20 @ 10:[address] Daniel Block MD) Father Cancer Smoking Status: Former smoker Alcohol: None Drugs: None Review of Systems - Review of Systems General: Denies: Fever, Night Sweats, Fatigue Cardiovascular: Reports: Chest Discomfort. Denies: Shortness of Breath, Orthopnea, PND, Peripheral Edema, Palpitations, Lightheadedness, Dizziness, Near Syncope, Syncope Respiratory: Denies: Cough, Sputum Production, Hemoptysis Gastrointestinal: Reports: Epigastric Discomfort. Denies: Hematemesis, Hematochezia, Melena Genitourinary: Denies: Dysuria, Hematuria Skin: Denies: Rash Subjectve: This is a pleasant 80-year-old white female appears be resting comfortably at the moment in no acute distress. Objective: Vital Signs Temp Pulse Resp BP Pulse Ox 98.0 F 75 18 143/44 H 95 10/10/20 16:02 10/10/20 16:02 10/10/20 16:02 10/10/20 16:02 10/10/20 16:02 Oxygen Delivery Method Room Air Weight: 138 lb 6.4 oz Body Mass Index (BMI) 27.0 General: Awake, Alert, Oriented x 3, Cooperative, No Acute Distress HEENT: Atraumatic, Normocephalic, PERRL, EOMI, Sclera Non Icteric Neck: Supple, Good ROM, No JVD Lungs: Clear to auscultation Cardiovascular: Regular Rhythm, Normal S1, Normal S2 Abdomen: Bowel Sounds Present, Soft, - - Positive newness to palpation in the epigastric area Extremities: No edema Neurological: No Focal Motor or Sensory Deficit Psych/Mental Status: Appropriate 10/10/20 10:10: WBC 7.3, RBC 5.12, Hgb 15.7 H, Hct 48.1 H, MCV 93.9, MCH 30.7, MCHC 32.6, Plt Count 148 L, MPV 11.8, Immature Gran % (Auto) 0.300, Neut % (Auto) 72.6 H, Lymph % (Auto) 20.6, [place] % (Auto) 5.3, Eos % (Auto) 0.5, Baso % (Auto) 0.7, Absolute Neuts (auto) 5.3, Nucleated RBC % 0 10/10/20 10:10: Sodium 141, Potassium 3.7, Chloride 105, Carbon Dioxide 30.0, Anion Gap 6, BUN 20 H, Creatinine 0.98, Est GFR (MDRD) Af Amer 71, Est GFR (MDRD) Non-Af 58 L, BUN/Creatinine Ratio 20.4 H, Glucose 130 H, Calcium 9.6, Magnesium 2.0, Troponin I < 0.015 10/10/20 13:14: Troponin I < 0.015 10/10/20 16:04: Troponin I < 0.015 Rhythm: Sinus rhythm EKG: Sinus rhythm; PVCs; low voltage QRS limb leads; left atrial enlargement; nonspecific ST/T wave abnormality ECHO: Stress Test: 08-28-2020 Stress Test Report Pharmacologic myocardial perfusion stress test. 80-year-old lady with a history of chest pain. Stress protocol: Resting KG demonstrates normal sinus rhythm with a rate of 83 bpm premature ventricular complexes are noted resting blood pressure is 140/80 mmHg. 0.4 mg of regadenoson was infused per usual protocol followed by Intravenous saline flush injection continuous EKG monitoring was performed. Patient maintained sinus rhythm with frequent premature ventricular complexes noted and occasional ventricular bigeminy present. Nonspecific ST-T wave changes were noted. The maximum heart rate was 131 bpm which was 92% of maximum predicted heart rate the maximum workload was 1met the final blood pressure was 150/70 mmHg. Myocardial perfusion protocol. 11.7 mCi of technetium 99m sestamibi was injected at rest. 0.4 mg of regadenoson was infused per usual protocol peak infusion 35.9 mCi of technetium 99m sestamibi was injected stress images were obtained stress and rest images were reconstructed and compared in the short axis vertical and horizontal long axis. Gated images were also obtained Perfusion SPECT analysis: Review of the stress images demonstrate normal uptake of tracer noted in all areas of myocardium the resting images similarly demonstrate normal uptake of tracer noted in all areas of myocardium. No reversibility is noted suggest ischemia. Gated SPECT analysis: The gated ejection fraction is 65%. Conclusion: Normal pharmacologic myocardial perfusion stress test. Preserved ejection fraction. Cardiac Cath: 07-13-18 CONCLUSIONS Mild in-stent stenosis of the proximal right coronary artery stent with mild diffuse disease noted. RECOMMENDATIONS Medical therapy DESCRIPTION OF PROCEDURE The patient arrived to the procedure lab. The risks and benefits of the procedure as well as a full description of our services here and current unavailability of surgical backup were fully explained to the patient and/or their significant other prior to the catheterization. The Timeout was completed, verifying the correct patient and procedure. The patient's procedural site was prepped and draped in the usual fashion. Local anesthetic was given subcutaneously to right radial region with Lidocaine 2%. Using a modified Seldinger technique, arterial access was obtained via the right radial artery, a 6Fr sheath was inserted. Left Coronary Artery selective angiography was performed in multiple views using a 5 Fr. 4.0 Garland catheter. Left Coronary Artery selective angiography was performed in multiple views using a 5 Fr. 4.0 Garland catheter. Right Coronary Artery selective angiography was then performed in multiple views using a 5 Fr. 4.0 Garland catheter. Left Ventriculography was performed in VALENCIA projection using a 5 Fr. Pigtail catheter. LV to AO pullback pressures were then recorded.The arterial sheath was pulled and manual compression applied until hemostasis is achieved. CORONARY ANGIOGRAPHY DOMINANCE: Right Dominant LEFT HEART ASSESSMENT Left Ventricular Ejection Fraction: by LV Gram 65 % Normal Left Ventricular systolic function LEFT MAIN: Angiographically normal LEFT ANTERIOR DECENDING ARTERY: MID LAD: Previously placed stent is patent DIAGONAL 1: Ostial - 60 % Stenosis CIRCUMFLEX ARTERY: Mild luminal irregularities RIGHT CORONARY ARTERY: PROX RCA: Previously placed stent has an instent 30 % restenosis RT PDA: Ostial - 70 % Stenosis CXR: IMPRESSION: Hyperinflation. The lungs are clear. Electronically Signed: Ameya Singh, at 11:[address] Scan: FINDINGS: 4 mm hypodensity in the left lobe of the thyroid. Mild substernal extension of the right lobe of the thyroid. Normal enhancement of the main pulmonary artery and right and left pulmonary arteries. Normal enhancement of the bilateral peripheral pulmonary arteries. There is no demonstrated pulmonary embolism. There is atherosclerotic calcification of the aortic arch and descending thoracic aorta with tortuosity. There is no demonstrated aortic dissection. There are calcifications of the coronary arteries. Normal mediastinum. Normal hilar regions. Normal visualized trachea and bronchi. The lungs are well expanded. Mild degree of increased linear markings at the lung bases suggestive of early atelectasis and/or scarring. Normal pleura. Normal chest wall structures. There are degenerative changes of thoracic spine. Normal visualized upper abdomen. CT/CTA Chest W/WO Contrast IMPRESSION: Atherosclerotic changes of the aortic arch and the descending thoracic aorta. Mild scarring at the left lung apex and lung bases. Electronically Signed: Ameya Samantha, at 16:01 EST Assessment/Plan 1. Chest discomfort The patient presented with chest discomfort. She also had concerns of epigastric discomfort. From a cardiac standpoint her repeat troponin I levels have remained negative. A repeat ECG demonstrated no new acute changes. She has recently undergone additional noninvasive evaluation with a stress nuclear imaging study which was considered negative. She did not require cardiac catheterization at that time. At the moment it is unclear that her symptoms are cardiac related. There is concern based upon the results of her studies thus far that they may be noncardiac related and potentially related to a gastrointestinal process. She does state that she has been treated for gastrointestinal disease before with medicine such as Carafate and PPIs. She does not recall undergoing gastrointestinal evaluation in the past such as EGD, etc. At the moment she can continue to be followed. She will continue cardiovascular medical therapy as deemed appropriate. She is having additional noninvasive valuation with a transthoracic echocardiogram to evaluate her left ventricular wall motion and systolic function. 2. CAD status post PCI (LAD and RCA) Again at the present time it is unclear that her symptoms are related to her underlying CAD status. Her troponin I levels have been negative. Her ECG is as noted. Her most recent stress nuclear imaging study did not demonstrate any ongoing myocardial ischemia. The present time she will continue risk factor evaluation care as deemed appropriate. She will continue medical therapy as needed. Her echocardiogram will be reviewed. Certainly if she demonstrates new left ventricular regional wall motion abnormalities/findings/concerns that she may need additional cardiac evaluation. Otherwise she may need further noncardiac evaluation of her ongoing symptoms. 3. Hyperlipidemia She will continue lipid-lowering therapy as deemed appropriate. 4. Hypertension Her blood pressure was evaded on arrival. She was treated for such. It is unclear as to whether or not her hypertension contributed to her symptoms and whether or not her antihypertensive therapy with IV hydralazine contributed to her subsequent bradycardia and hypotension. Her blood pressure will need to be followed with adjustment of her medications as needed. 5. Carotid artery disease She will continue evaluation care by her other physicians and occluding Dr. Agustín Swan has reportedly followed her carotid arteries in the past. Of note, the etiology of her transient hypotensive event is somewhat unclear. This occurred, according to her, after she was eating and had recurrent epigastric discomfort. It was associated with other symptoms as noted above. She then was noted to have marked sinus bradycardia and/or an ectopic atrial bradycardia with hypotension. This raises concerns as to whether or not she had a noxious stimuli, from her epigastric discomfort, triggered a vasovagal mediated event versus being related to her antihypertensive therapy with IV hydralazine. This note was generated using a voice recognition system and there may be incorrect words, spelling or punctuation that were not noted when reviewing the office note prior to saving.
[2020-10-10] MEDS: 0.9% Normal Saline 1,000 ML 100 ML IV (18:05)
--- NOTE | 2020-10-10 21:36 | PCS.PANDOC ---
PANDEMIC DOCUMENTATION INITIATED: Date: 10/10/20 Time: 12:30
[2020-10-10] MEDS: Isosorbide DN 10 MG Tablet 20 MG PO (21:58)
[2020-10-10] MEDS: Carvedilol 3.125 MG TABLET PO (21:58)
[2020-10-10] MEDS: Atorvastatin Calcium 40 MG Tablet PO (21:59)
[2020-10-11 02:59] VITALS: PULSE 64
[2020-10-11] MEDS: 0.9% Normal Saline 1,000 ML 100 ML IV (03:40)
[2020-10-11 03:54] VITALS: BP 140/58; PULSE 71; RESP 18; TEMP 36.8; O2SAT 94
--- NOTE | 2020-10-11 05:55 | EKG12_ITS ---
Test Reason : AM Blood Pressure : / mmHG Vent. Rate : 071 BPM Atrial Rate : 071 BPM P-R Int : 140 ms QRS Dur : 084 ms QT Int : 426 ms P-R-T Axes : 063 016 025 degrees QTc Int : 462 ms Sinus rhythm with occasional Premature ventricular complexes Otherwise normal ECG When compared with ECG of 10-OCT-2020 13:56, MANUAL COMPARISON REQUIRED, DATA IS UNCONFIRMED Confirmed by DELFINA MAGANA, MARISOL ([id number]), health editor ANGEL LUIS NINO ([id number]) on 10/16/2020 9:24:14 AM Referred By: LAMONT Confirmed By:BRIAN MATHIS MD
[2020-10-11 06:03] LABS: Cholesterol 101 mg/dL (200); High Density Lipoprotein 39 mg/dL; Thyroid Stim Hormone (TSH) 1.54 uIU/mL (0.358-3.74); Triglycerides 188 mg/dL; Very Low Density Lipoprotein 38 mg/dL (5-40)
[2020-10-11] MEDS: Isosorbide DN 10 MG Tablet 20 MG PO (06:34)
[2020-10-11 07:00] VITALS: PULSE 76
[2020-10-11 07:49] LABS: Absolute Lymphocyte Count 1.36 X10^3/uL (0.83-4.51); Absolute Neutrophil Count 2.6 X10^3/uL (2.0-7.7); Basophil# 0.04 X10^3/uL; Basophil% 0.9 % (0-1); Eosinophil# 0.06 X10^3/uL; Eosinophils% 1.4 % (0-5); Hematocrit 38.8 % (37-47); Hemoglobin 12.5 g/dL (12.0-15.0); Lymphocyte # 1.36 X10^3/ul (4.0); Lymphocyte % 31.1 % (19-41); Mean Corp Hgb Conc 32.2 g/dL (32-36); Mean Corpuscular Hgb 30.4 pg (27.0-32.0); Mean Corpuscular Volume 94.4 fL (81-99); Mean Platelet Vol. 11.6 fl (6.2-12.0); Monocyte# 0.34 X10^3/uL; Monocyte% 7.8 % (0-10); NRBC Flagged by Analyzer 0 % (0-5); Neutrophil # 2.57 X10^3/uL (2.7-7.7); Neutrophil % 58.6 % (47-70); Platelet Count 119 K/mm3 (150-450); RBC Distribution Width SD 48.3 fl (35.1-43.9); Red Blood Count 4.11 M/mm3 (4.2-5.4); White Blood Count 4.4 K/mm3 (4.4-11.0)
[2020-10-11 08:04] LABS: ALB/GLOB Ratio 1.2 RATIO (0.9-2.4); AST(SGOT) 14 U/L (15-37); Alanine Aminotransfer ALT/SGPT 22 U/L (13-56); Albumin, Serum 2.8 g/dL (3.2-5.0); Alkaline Phosphatase 66 U/L (45-117); Anion Gap 6 (5-15); BUN 17 mg/dL (7-18); BUN/Creat Ratio 21.5 RATIO (10-20); Calcium,Total 7.7 mg/dL (8.5-10.1); Chloride 108 mmol/L (98-107); Creatinine, Serum 0.79 mg/dL (0.55-1.02); EST Glomerular Filtration Rate 75 mL/min (>60); Est Glom Filt Rate - Afr Amer 91 mL/min (>60); Globulin 2.3 g/dL (2.2-4.2); Glucose 127 mg/dL (74-106); Magnesium 1.8 mg/dL (1.6-2.6); Potassium 3.3 mmol/L (3.5-5.1); Protein, Total 5.1 g/dL (6.4-8.2); Sodium Level 143 mmol/L (136-145)
[2020-10-11 10:28] VITALS: BP 131/66; PULSE 72; RESP 18; TEMP 36.7; O2SAT 95
[2020-10-11] MEDS: Enoxaparin 40 MG/0.4 ML Syringe SC (10:33)
[2020-10-11] MEDS: Lisinopril 10 MG Tablet PO (10:34)
[2020-10-11] MEDS: Carvedilol 6.25 MG Tablet PO (10:39)
--- NOTE | 2020-10-11 10:44 | PCM.DC ---
- Discharge Diagnoses Current Active Problems: Current Active and Chronic Problems (Last Reviewed 08/30/20 @ 10:[address] Daniel Block MD) Unstable angina (Acute) Unstable angina (Acute) Chest pain (Acute) CAD (coronary artery disease) (Chronic) Hx of cataract extraction (Chronic) Left eye Bilateral carotid artery stenosis (Chronic) History of esophagogastroduodenoscopy (EGD) (Chronic) Diverticulosis (Chronic) Hemorrhoids (Chronic) Osteoarthritis (Chronic) Carotid artery stenosis (Chronic) Renal cysts, acquired, bilateral (Chronic) LVH (left ventricular hypertrophy) (Chronic) Celiac artery stenosis (Chronic) Dysphagia (Acute) GERD (gastroesophageal reflux disease) (Chronic) Atherosclerotic heart disease of [place] coronary artery without angina pectoris (Chronic) PCI-JUAN-Mid LAD 3.0 x 20 mm Promus and Right PDA 2.5 x 12 mm Promus 12/07/2012 NSTEMI (non-ST elevated myocardial infarction) (Chronic) History of coronary artery stent placement (Chronic 12/07/12) PCI-JUAN-LAD 3.0 x 20 mm Promus and Right PDA 2.5 x 12 mm Promus 12/07/2012 Essential (primary) hypertension (Chronic) Secondary pulmonary arterial hypertension (Chronic) HLD (hyperlipidemia) (Chronic) Left carotid stenosis (Chronic) Carotid bruit (Chronic) You will use the following diet at home:: Cardiac Your food should be the consistency of: Regular Discharge Activity: May Not Drive Weight Bearing Status: Weight bearing as tolerated Call your doctor if you observe: Fever of 101 or Higher, Coldness, Increased Pain, Numbness or Tingling, Inability to urinate, Inability to have a bowel movement, Using more than one pad per hour, Shortness of breath, Dizziness, Fainting spells, Swelling in the ankles, Chest pain, Prolonged hiccoughing, Increased palpitations (irregular heartbeat), Calf discomfort, Uncontrolled pain Additional Instructions: Patient has Carafate at home and advised to take it. She was feeling epigastric pain and taste bad and stopped taking it.. Advised to take it even 2 times daily. Advised to follow-up GI in 2 to 4 weeks. Allergies/Adverse Reactions: Allergies hydrocodone bitartrate [From Vicodin] Adverse Reaction (Verified 08/29/20 09:31) Other metronidazole Adverse Reaction (Verified 08/29/20 09:31) nausea Medications to take at Discharge Aspirin E.C. [Ecotrin] 81 mg PO DAILY@0800 12/27/13 Atorvastatin Calcium [Lipitor] 40 mg PO QHS 12/27/13 Lisinopril [Zestril] 10 mg PO DAILY 12/27/13 Clopidogrel Bisulfate [Plavix] 75 mg PO DAILY 01/12/17 pantoprazole 40 mg tablet,delayed release 40 mg PO BID tab 10/06/18 psyllium 1 tbsp PO DAILY 03/19/19 nystatin 100,000 unit/gram topical powder TOPICAL 11/10/19 isosorbide mononitrate 60 mg tablet,extended release 24 hr 60 mg PO DAILY #90 tab 08/10/20 olopatadine 0.2 % eye drops 1 drp OPHTHALMIC DAILY 08/29/20 peg 400-propylene glycol 0.4 %-0.3 % eye drops 1 drp OPHTHALMIC BID-TID PRN ml 08/29/20 vit C 250 mg-E 200 unit-zinc 40 mg-copper 1 [id number] capsule 1 tab PO BID 08/29/20 nitroglycerin 0.4 mg sublingual tablet 0.4 mg SUBLINGUAL Q5-15M PRN #25 tab 09/25/20 Vit C/E/Zn/Coppr/Lutein/Zeaxan [Preservision Areds 2 Softgel] 1 ea PO BID 10/10/20 Carvedilol [Coreg (Beta Zaynab)] 6.25 mg PO BID #60 tab 10/11/20 The following prescriptions were given: Carvedilol [Coreg (Beta Zaynab)] 6.25 mg PO BID #60 tab Transmission Status: Pending to [id number] Primary Care Physician: Demetrice Sung MD [Primary Care Provider] - Please follow up with your Primary Care Physician in: in 1-2 weeks Test Results: Test results from this visit will be discussed in further detail at your follow-up appointment, if applicable. Please Follow Up With: Prince Valentino MD When: in 2-4 weeks
--- NOTE | 2020-10-11 10:46 | PCM.DC.SUM ---
Discharge Date and Diagnosis - Problem List Patient Problems: Active and Suspected Problems (Last Reviewed 08/30/20 @ 10:[address] Daniel Block MD) Unstable angina (Acute) Unstable angina (Acute) Chest pain (Acute) Dysphagia (Acute) Date of Admission: 10/10/20 Date of Discharge: 10/11/20 - Primary Discharge Diagnosis Acute Problems: Active Problems (Last Reviewed 08/30/20 @ 10:[address] Daniel Block MD) Unstable angina (Acute) Unstable angina (Acute) Chest pain (Acute) Dysphagia (Acute) - Secondary Discharge Diagnosis Chronic Problems: Chronic Problems (Last Reviewed 08/30/20 @ 10:[address] Daniel Block MD) CAD (coronary artery disease) (Chronic) Hx of cataract extraction (Chronic) Left eye Bilateral carotid artery stenosis (Chronic) History of esophagogastroduodenoscopy (EGD) (Chronic) Diverticulosis (Chronic) Hemorrhoids (Chronic) Osteoarthritis (Chronic) Carotid artery stenosis (Chronic) Renal cysts, acquired, bilateral (Chronic) LVH (left ventricular hypertrophy) (Chronic) Celiac artery stenosis (Chronic) GERD (gastroesophageal reflux disease) (Chronic) Atherosclerotic heart disease of [place] coronary artery without angina pectoris (Chronic) PCI-JUAN-Mid LAD 3.0 x 20 mm Promus and Right PDA 2.5 x 12 mm Promus 12/07/2012 NSTEMI (non-ST elevated myocardial infarction) (Chronic) History of coronary artery stent placement (Chronic 12/07/12) PCI-JUAN-LAD 3.0 x 20 mm Promus and Right PDA 2.5 x 12 mm Promus 12/07/2012 Essential (primary) hypertension (Chronic) Secondary pulmonary arterial hypertension (Chronic) HLD (hyperlipidemia) (Chronic) Left carotid stenosis (Chronic) Carotid bruit (Chronic) Hospital Course and Treatment Summary of Care Provided: [] The patient is a 80 year old F with history of coronary artery disease status post stent in mid LAD and proximal RCA in 2012 came to ED with sudden onset of left-sided chest pressure with radiation to left carotid along with shortness of breath and dizziness and nausea EKG shows normal sinus rhythm with PVCs, with short NC interval 98 ms with no significant change from. Previous EKG in July 2020 was similar sinus rhythm short NC interval, frequent PVCs with left atrial enlargement. 1. Atypical chest pain with suspicion of unstable angina: Patient is being admitted in PCU. Serial troponin enzymes and repeat EKG. nitroglycerin ointment ordered in ER. Will change to Isordil 10 mg p.o. twice daily and titrate up the dose. Patient had recent pharmacological nuclear stress test in about 2019 which was reported normal. Serial troponins enzymes are negative. TSH normal. Fasting profile TC 101, triglyceride 188. Continue atorvastatin 40 mg daily at bedtime. 2D echo was done. It is consistent with chronic heart failure with preserved EF/chronic diastolic heart failure. Mild TR. Interpretation Summary Left ventricular systolic function is normal. The estimated ejection fraction is 65 %. The left atrium is mildly enlarged. Mild (1+) mitral valve insufficiency. Moderate (2+) tricuspid valve insufficiency. Right ventricular systolic pressure estimated to be 49 mmHg. There is evidence of diastolic dysfunction. Patient responded good with IV fluid and was continued as patient had IV contrast. 2. Hypertensive urgency: Patient on lisinopril 10 mg daily at home and uptitrate.. Hydralazine 10 mg IV as needed for systolic blood pressure more than 180 mmHg. Coronary artery status post stents in mid LAD and proximal RCA in 2012: cardiac cath in June [address] Tam which showed D1 ostial 60%, proximal RCA in-stent 30%, ostial right PDA 70% stenosis and medical therapy was recommended. She saw [facility] cardiology in July 2020 for chest pain and had pharmacological nuclear stress test which was negative EF 65%. We will continue medical management with aspirin, Plavix, atorvastatin, lisinopril. Patient started on Coreg 6.25 mg p.o. twice daily. Continue Imdur 60 mg daily. 3. Peripheral arterial disease: Patient has history of bilateral carotid stenosis, celiac artery stenosis. 4. Other comorbidities include GERD, hypertension, dyslipidemia, diverticulosis and hemorrhoids: Home medication reconciliation done. VTE prophylaxis: On Lovenox 40 mils subcu daily Discharge medication reconciliation done. Discharge follow-up instructions completed. Discharge process discussed with the patient and all questions were answered to patient's satisfaction. Total time spent, exact 35 minutes on discharge meds reconciliation, examination, coordination of care with nurses and ancillary staff, review of imaging and blood test and discussion with the patient on follow-up instructions Patient Problems: Active and Suspected Problems (Last Reviewed 08/30/20 @ 10:[address] Daniel Block MD) Unstable angina (Acute) Unstable angina (Acute) Chest pain (Acute) Dysphagia (Acute) Objective: No acute events after afternoon event of hypotension after IV hydralazine. It seems patient was dehydrated and possible vasovagal as she complained of epigastric pain. She further said she had EGD about 5 years ago and was found H. pylori by Dr. Block and then repeat was probably 2 to 3 years ago. Physical exam General: Alert, Oriented x3, Cooperative HEENT: Atraumatic, PERRLA, EOMI, Normocephalic Oral: No Gingival or Mucosal Lesions/ Ulcerations Neck: Supple, No JVD, Negative Carotid Bruits Lungs: Air entry diminished in bilateral lung bases. No crepitation/rhonchi Cardiovascular: Regular rate, Regular Rhythm, Normal S1, Normal S2, frequent PVCs. Midsystolic murmur over left lower sternal border. Abdomen: Bowel Sounds Present, Soft, Non Tender, Non-Distended : No renal angle tenderness. No suprapubic tenderness. Extremities: No edema, Capillary Refill Less than 3 Seconds Skin: No rashes, No breakdown Musculoskeletal: No Tenderness to Palpation of Joints or Extremities Neurological: Cranial nerves II-XII grossly intact, Deep Tendon Reflexes 2+/4 and Symmetrical, Neuro grossly intact Psych/Mental Status: Normal Affect, Appropriate. - Physical Exam Vitals/I&O's: Vital Signs Temp Pulse Resp BP Pulse Ox 98.1 F 72 18 131/66 H 95 10/11/20 10:28 10/11/20 10:28 10/11/20 10:28 10/11/20 10:28 10/11/20 10:28 Oxygen Delivery Method Room Air Weight: 138 lb 6.4 oz Body Mass Index (BMI) 27.0 Intake and Output for Last 24 Hours 10/09/20 10/10/20 10/11/20 23:59 23:59 23:59 Intake Total 480 / 480 958.33 / 958.33 Output Total 750 / 750 Balance -270 / -270 958.33 / 958.33 Laboratory Results 10/10/20 10:10: Sodium 141, Potassium 3.7, Chloride 105, Carbon Dioxide 30.0, Anion Gap 6, BUN 20 H, Creatinine 0.98, Estim Creat Clear Calc 35.70, Est GFR (MDRD) Af Amer 71, Est GFR (MDRD) Non-Af 58 L, BUN/Creatinine Ratio 20.4 H, Glucose 130 H, Calcium 9.6, Magnesium 2.0, Troponin I < 0.015 10/10/20 13:14: Troponin I < 0.015 10/10/20 16:04: Troponin I < 0.015 10/11/20 05:10: Triglycerides 188, Cholesterol 101, LDL Cholesterol 24, VLDL Cholesterol 38, HDL Cholesterol 39 L, TSH 1.54 10/11/20 05:10: WBC 4.4, RBC 4.11 L, Hgb 12.5, Hct 38.8, MCV 94.4, MCH 30.4, MCHC 32.2, RDW Std Deviation 48.3 H, RDW Coeff of [place] 14.0, Plt Count 119 L, MPV 11.6, Immature Gran % (Auto) 0.200, Neut % (Auto) 58.6, Lymph % (Auto) 31.1, [place] % (Auto) 7.8, Eos % (Auto) 1.4, Baso % (Auto) 0.9, Absolute Neuts (auto) 2.6, Absolute Lymphs (auto) 1.36, Nucleated RBC % 0 10/11/20 05:10: Sodium 143, Potassium 3.3 L, Chloride 108 H, Carbon Dioxide 29.0, Anion Gap 6, BUN 17, Creatinine 0.79, Estim Creat Clear Calc 33.30, Est GFR (MDRD) Af Amer 91, Est GFR (MDRD) Non-Af 75, BUN/Creatinine Ratio 21.5 H, Glucose 127 H, Calcium 7.7 L, Magnesium 1.8, Total Bilirubin 0.60, AST 14 L, ALT 22, Alkaline Phosphatase 66, Total Protein 5.1 L, Albumin 2.8 L, Globulin 2.3, Albumin/Globulin Ratio 1.2 Current Medications Acetaminophen (Acetaminophen 325 Mg Tablet) 650 mg PO Q6H PRN PRN PRN Reason: Pain Score 1-10/Temp > 100.7 F Al Hydroxide/Mg Hydroxide (Mag Hydrox/Al Hydrox/Simeth 30 Ml Udc) 30 ml PO Q6H PRN PRN PRN Reason: Gastric Burning Atorvastatin Calcium (Atorvastatin Calcium 40 Mg Tablet) 40 mg PO QHS JUAN A Last Admin: 10/10/20 21:59 Dose: 40 mg Documented by: Carvedilol (Carvedilol 6.25 Mg Tablet) 6.25 mg PO BID [facility] Enoxaparin Sodium (Enoxaparin 40 Mg/0.4 Ml Syringe) 40 mg SC DAILY [facility] Last Admin: 10/11/20 10:33 Dose: 40 mg Documented by: Isosorbide Dinitrate (Isosorbide Dn 10 Mg Tablet) 20 mg PO TID [facility] Last Admin: 10/11/20 06:34 Dose: 20 mg Documented by: Labetalol HCl (Labetalol (Prefilled) 20 Mg/4 Ml) 10 mg IV Q6H PRN PRN Reason: SBP >190 Lisinopril (Lisinopril 10 Mg Tablet) 10 mg PO DAILY [facility] Last Admin: 10/11/20 10:34 Dose: 10 mg Documented by: Melatonin (Melatonin 3 Mg Tablet) 3 mg PO QHS PRN PRN PRN Reason: INSOMNIA Morphine Sulfate (Morphine 2 Mg/Ml Syringe) 2 mg IV Q3H PRN PRN PRN Reason: Pain Score 6-10/10/chest pain Oxycodone HCl (Oxycodone 5 Mg Tablet) 5 mg PO Q4H PRN PRN PRN Reason: Pain Score 4-5 Potassium Chloride (Potassium Chloride 20 Meq Tablet) 40 meq PO Q3H [facility] Stop: 10/11/20 12:31 Prochlorperazine Edisylate (Prochlorperazine 10 Mg/2 Ml Vial) 5 mg IV Q4H PRN PRN PRN Reason: Breakthrough Nausea/Vomiting Last Admin: 10/10/20 13:48 Dose: 5 mg Documented by: Senna/Docusate Sodium (Senna/Docusate Sodium 1 Tablet) 2 tablet PO BID PRN PRN PRN Reason: Constipation Sodium Chloride (0.9% Saline Lock 10 Ml Syringe) 10 - 40 ml IV UD PRN PRN Reason: SALINE FLUSH Discharge Activity: May Not Drive Weight Bearing Status: Weight bearing as tolerated Call your doctor if you observe: Fever of 101 or Higher, Coldness, Increased Pain, Numbness or Tingling, Inability to urinate, Inability to have a bowel movement, Using more than one pad per hour, Shortness of breath, Dizziness, Fainting spells, Swelling in the ankles, Chest pain, Prolonged hiccoughing, Increased palpitations (irregular heartbeat), Calf discomfort, Uncontrolled pain Home Medications: Medications to take at Discharge Aspirin E.C. [Ecotrin] 81 mg PO DAILY@0800 12/27/13 Atorvastatin Calcium [Lipitor] 40 mg PO QHS 12/27/13 Lisinopril [Zestril] 10 mg PO DAILY 12/27/13 Clopidogrel Bisulfate [Plavix] 75 mg PO DAILY 01/12/17 pantoprazole 40 mg tablet,delayed release 40 mg PO BID tab 10/06/18 psyllium 1 tbsp PO DAILY 03/19/19 nystatin 100,000 unit/gram topical powder TOPICAL 11/10/19 isosorbide mononitrate 60 mg tablet,extended release 24 hr 60 mg PO DAILY #90 tab 08/10/20 olopatadine 0.2 % eye drops 1 drp OPHTHALMIC DAILY 08/29/20 peg 400-propylene glycol 0.4 %-0.3 % eye drops 1 drp OPHTHALMIC BID-TID PRN ml 08/29/20 vit C 250 mg-E 200 unit-zinc 40 mg-copper 1 [id number] capsule 1 tab PO BID 08/29/20 nitroglycerin 0.4 mg sublingual tablet 0.4 mg SUBLINGUAL Q5-15M PRN #25 tab 09/25/20 Vit C/E/Zn/Coppr/Lutein/Zeaxan [Preservision Areds 2 Softgel] 1 ea PO BID 10/10/20 Carvedilol [Coreg (Beta Zaynab)] 6.25 mg PO BID #60 tab 10/11/20 Following Prescriptions Were Given to Patient: Carvedilol [Coreg (Beta Zaynab)] 6.25 mg PO BID #60 tab Transmission Status: Received by [id number] Primary Care Physician: Demetrice Sung MD [Primary Care Provider] - Please follow up with your Primary Care Physician in: in 1-2 weeks Please Follow Up With: Prince Valentino MD When: in 2-4 weeks Medical Necessity - Tobacco Use Smoking Status: Former smoker Meaningful Use Info Meaningful Use Diagnoses (Choose all that apply): None applicable OBSV E&M: 50428 Observation care discharge
--- NOTE | 2020-10-11 11:40 | PHA.DC.MC ---
Pharmacy Service has performed discharge medication reconciliation and counseling for this patient. 1. CARVEDILOL 6.25MG PO BID The patient's discharge medication list was reviewed for discrepancies and discrepancies were resolved. Home Medications Aspirin E.C. [Ecotrin] 81 mg PO DAILY@0800 12/27/13 Atorvastatin Calcium [Lipitor] 40 mg PO QHS 12/27/13 Lisinopril [Zestril] 10 mg PO DAILY 12/27/13 Clopidogrel Bisulfate [Plavix] 75 mg PO DAILY 01/12/17 pantoprazole 40 mg tablet,delayed release 40 mg PO BID tab 10/06/18 psyllium 1 tbsp PO DAILY 03/19/19 nystatin 100,000 unit/gram topical powder TOPICAL 11/10/19 isosorbide mononitrate 60 mg tablet,extended release 24 hr 60 mg PO DAILY #90 tab 08/10/20 olopatadine 0.2 % eye drops 1 drp OPHTHALMIC DAILY 08/29/20 peg 400-propylene glycol 0.4 %-0.3 % eye drops 1 drp OPHTHALMIC BID-TID PRN ml 08/29/20 vit C 250 mg-E 200 unit-zinc 40 mg-copper 1 [id number] capsule 1 tab PO BID 08/29/20 nitroglycerin 0.4 mg sublingual tablet 0.4 mg SUBLINGUAL Q5-15M PRN #25 tab 09/25/20 Vit C/E/Zn/Coppr/Lutein/Zeaxan [Preservision Areds 2 Softgel] 1 ea PO BID 10/10/20 Carvedilol [Coreg (Beta Zaynab)] 6.25 mg PO BID #60 tab 10/11/20 The patient was counseled on the following discharge medications and changes in medications for homegoing were reviewed. The Reason for Use, instructions for use, and potential side effects were reviewed for all new medications. The patient's questions regarding all of their medications were answered. The patient was able to verbally demonstrate an understanding of their discharge medications.
--- NOTE | 2020-10-11 12:55 | PCM.PN.CARD ---
Subjectve: The patient was evaluated earlier this a.m. She stated overall she felt better although she still has some residual epigastric discomfort. She questions whether this could be related to her previous GI history and H. pylori. Objective: Vital Signs Temp Pulse Resp BP Pulse Ox 98.1 F 72 18 131/66 H 95 10/11/20 10:28 10/11/20 10:28 10/11/20 10:28 10/11/20 10:28 10/11/20 10:28 Oxygen Delivery Method Room Air Weight: 138 lb 6.4 oz Body Mass Index (BMI) 27.0 Intake and Output for Last 24 Hours 10/09/20 10/10/20 10/11/20 23:59 23:59 23:59 Intake Total 480 / 480 1678.33 / 1678.33 Output Total 750 / 750 Balance -270 / -270 1678.33 / 1678.33 General: Awake, Alert, Oriented x 3, Cooperative, No Acute Distress HEENT: Atraumatic, Normocephalic, PERRL, EOMI, Sclera Non Icteric Neck: Supple, Good ROM, No JVD Lungs: Clear to auscultation Cardiovascular: Regular Rhythm, Premature Ectopic Beats, Normal S1, Normal S2 Abdomen: Bowel Sounds Present, Soft Extremities: No edema Neurological: No Focal Motor or Sensory Deficit Psych/Mental Status: Appropriate 10/10/20 13:14: Troponin I < 0.015 10/10/20 16:04: Troponin I < 0.015 10/11/20 05:10: Triglycerides 188, Cholesterol 101, LDL Cholesterol 24, VLDL Cholesterol 38, HDL Cholesterol 39 L 10/11/20 05:10: WBC 4.4, RBC 4.11 L, Hgb 12.5, Hct 38.8, MCV 94.4, MCH 30.4, MCHC 32.2, Plt Count 119 L, MPV 11.6, Immature Gran % (Auto) 0.200, Neut % (Auto) 58.6, Lymph % (Auto) 31.1, [place] % (Auto) 7.8, Eos % (Auto) 1.4, Baso % (Auto) 0.9, Absolute Neuts (auto) 2.6, Nucleated RBC % 0 10/11/20 05:10: Sodium 143, Potassium 3.3 L, Chloride 108 H, Carbon Dioxide 29.0, Anion Gap 6, BUN 17, Creatinine 0.79, Est GFR (MDRD) Af Amer 91, Est GFR (MDRD) Non-Af 75, BUN/Creatinine Ratio 21.5 H, Glucose 127 H, Calcium 7.7 L, Magnesium 1.8, Total Bilirubin 0.60 Rhythm: Sinus rhythm; PVCs; 1 episode of pain nonsustained wide-complex tachycardia-6 beats-potentially compatible with nonsustained VT Echo: Interpretation Summary Left ventricular systolic function is normal. The estimated ejection fraction is 65 %. The left atrium is mildly enlarged. Mild (1+) mitral valve insufficiency. Moderate (2+) tricuspid valve insufficiency. Right ventricular systolic pressure estimated to be 49 mmHg. There is evidence of diastolic dysfunction. Medical Necessity - Tobacco Use Smoking Status: Former smoker Assessment/Plan 1. Chest discomfort The patient presented with chest discomfort. She also had concerns of epigastric discomfort. From a cardiac standpoint her repeat troponin I levels have remained negative. A repeat ECG demonstrated no new acute changes. She has recently undergone additional noninvasive evaluation with a stress nuclear imaging study which was considered negative. She did not require cardiac catheterization at that time. At the moment it is unclear that her symptoms are cardiac related. There is concern based upon the results of her studies thus far that they may be noncardiac related and potentially related to a gastrointestinal process. At the moment she can continue to be followed. Has undergone additional evaluation with a transthoracic echocardiogram. The results are as noted. She will continue cardiovascular medical therapy as deemed appropriate. There are no immediate plans for additional evaluation such as diagnostic cardiac catheterization at this time. 2. CAD status post PCI (LAD and RCA) Again at the present time it is unclear that her symptoms are related to her underlying CAD status. Her troponin I levels have been negative. Her ECG is as noted. Her most recent stress nuclear imaging study did not demonstrate any ongoing myocardial ischemia. The present time she will continue risk factor evaluation care as deemed appropriate. She will continue medical therapy as needed. 3. Hyperlipidemia She will continue lipid-lowering therapy as deemed appropriate. 4. Hypertension Her blood pressure was evaded on arrival. She was treated for such. It is unclear as to whether or not her hypertension contributed to her symptoms and whether or not her antihypertensive therapy with IV hydralazine contributed to her subsequent bradycardia and hypotension. Her blood pressure will need to be followed with adjustment of her medications as needed. 5. Carotid artery disease She will continue evaluation care by her other physicians and occluding DrMichael Swan has reportedly followed her carotid arteries in the past. Of note, the etiology of her transient hypotensive event is somewhat unclear. This occurred, according to her, after she was eating and had recurrent epigastric discomfort. It was associated with other symptoms as noted above. She then was noted to have marked sinus bradycardia and/or an ectopic atrial bradycardia with hypotension. This raises concerns as to whether or not she had a noxious stimuli, from her epigastric discomfort, triggered a vasovagal mediated event versus being related to her antihypertensive therapy with IV hydralazine. For all, at the present time, she will continue medical management. There are no immediate plans for additional cardiac diagnostic studies at this time. She will continue with future outpatient cardiovascular follow-up. Comment: The patient's case was discussed and reviewed with Dr. Huitron. This note was generated using a voice recognition system and there may be incorrect words, spelling or punctuation that were not noted when reviewing the office note prior to saving.
== END 2020-10-11 10:45 | disposition home or self-care (01) ==
LOC: ED 11:24 → PCU 12:09
PROVIDERS: Admitting Provider Internal Medicine; Emergency Provider Emergency Medicine; PCP Internal Medicine; Visit Provider Internal Medicine
DX: I25.110 Atherosclerotic heart disease of native coronary artery with unstable angina pectoris (principal); M19.90 Unspecified osteoarthritis, unspecified site; I25.2 Old myocardial infarction; K21.9 Gastro-esophageal reflux disease without esophagitis; I10 Essential (primary) hypertension; E78.5 Hyperlipidemia, unspecified; I27.21 Secondary pulmonary arterial hypertension; Z79.02 Long term (current) use of antithrombotics/antiplatelets; Z79.82 Long term (current) use of aspirin; Z87.891 Personal history of nicotine dependence; Z79.899 Other long term (current) drug therapy; I16.0 Hypertensive urgency; I73.9 Peripheral vascular disease, unspecified; R07.89 Other chest pain; R13.10 Dysphagia, unspecified; I08.1 Rheumatic disorders of both mitral and tricuspid valves
CPT/HCPCS: 36415; 71045; 71275; 80048; 80053; 80061; 83735; 84443; 84484; 85025; 93005; 93306; 96361; 96372; 96374; 96375; 99218; 99285; J7030; Q9967; A4216; G0378

== ENCOUNTER → 2020-11-29 12:30 | Outpatient (CLI) | payer MEDICARE, SELFPAY ==
[2020-10-10 12:35] VITALS: BMI 27.0
[2020-11-24 12:29] VITALS: BMI 25.1
--- NOTE | 2020-11-29 12:36 | CDU_ITS ---
Reason For Study: Carotid stenosis Rt. Velocities/BP Lt. Velocities/BP Prox CCA 87.8/13.4 cm/sec. Prox CCA 55.1/14.5 cm/sec. Mid CCA 83.9/13.4 cm/sec. Mid CCA 54.1/16.3 cm/sec. Dist CCA 70.8/13.4 cm/sec. Dist CCA 49.4/15.4 cm/sec. Prox ICA 119.3/29.8 cm/sec. Prox ICA 88.2/22.3 cm/sec. Mid ICA 93.7/20.6 cm/sec. Mid ICA 137.5/27.9 cm/sec. Dist ICA 80.9/22.5 cm/sec. Dist ICA 93.7/18.8 cm/sec. Rt. ICA/CCA = 1.42. Lt. ICA/CCA = 2.54. Prox ECA 163.1/13.8 cm/sec. Lt. Vert. 75.3/10.2 cm/sec. Rt. Vert. 44.3/6.9 cm/sec. Right Extracranial There is homogeneous, smooth atherosclerotic plaque noted in the right common carotid artery. There is heterogeneous, irregular atherosclerotic plaque noted in the right internal carotid artery. Unable to duplicate velocities in proximal ICA as compared to 11/19/2019. There is heterogeneous, irregular atherosclerotic plaque noted in the right external carotid artery. Antegrade flow is noted in the right vertebral artery. Left Extracranial There is heterogeneous, irregular atherosclerotic plaque noted in the left common carotid artery. There is heterogeneous, irregular atherosclerotic plaque noted in the left internal carotid artery. The left internal carotid artery is very tortuous. 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 Antegrade flow is noted in the left vertebral artery. Interpretation Summary Irregular calcific plaque with shadowing at the proximal right internal and external carotid arteries Less than 50% stenosis right internal carotid artery Less than 50% stenosis right external carotid artery Minimal heterogenous irregular plaque at the proximal left internal carotid artery with significant tortuosity of the internal carotid artery noted. 50 to 69% stenosis left internal carotid artery No flow detected in the left external carotid artery consistent with occlusion Patent and antegrade vertebrals bilaterally Ordering Physician: Ok Swan Referring Physician: Demetrice Sung Performed By: Ninfa Angulo Ariella
== END ==
PROVIDERS: PCP Internal Medicine; Referring Provider Surgery; Visit Provider Surgery
DX: I65.23 Occlusion and stenosis of bilateral carotid arteries (principal)
CPT/HCPCS: 93880

== ENCOUNTER → 2022-09-30 | Outpatient (CLI) | payer MEDICARE, SELFPAY ==
--- NOTE | 2022-09-30 09:55 | CDU_ITS ---
Reason For Study: CAROTID STENOSIS Rt. Velocities/BP Lt. Velocities/BP Prox CCA 144.8/11.5 cm/sec. Prox CCA 55.0/15.3 cm/sec. Mid CCA 89.8/16.8 cm/sec. Mid CCA 61.5/19.9 cm/sec. Dist CCA 69.7/11.3 cm/sec. Dist CCA 65.2/21.8 cm/sec. Prox ICA 94.9/24.5 cm/sec. Prox ICA 89.5/24.4 cm/sec. Mid ICA 97.3/22.7 cm/sec. Mid ICA 148.41/29.9 cm/sec. Dist ICA 81.8/21.4 cm/sec. Dist ICA 97.4/19.3 cm/sec. Rt. ICA/CCA = 97.3/89.8=1.1. Lt. ICA/CCA = 148.4/65.2=2.3. Prox ECA 157.6/17.0 cm/sec. Prox ECA retrograde flow cm/sec. Rt. Vert. 49.7/8.2 cm/sec. Lt. Vert. 71.0/13.8 cm/sec. Right Extracranial There is homogeneous, smooth atherosclerotic plaque noted in the right common carotid artery. There is heterogeneous, irregular atherosclerotic plaque noted in the right internal carotid artery. There is heterogeneous, irregular atherosclerotic plaque noted in the right external carotid artery. Antegrade flow is noted in the right vertebral artery. Left Extracranial There is heterogeneous, irregular atherosclerotic plaque noted in the left common carotid artery. There is homogeneous, smooth atherosclerotic plaque noted in the left internal carotid artery. The tortuous nature of the left internal carotid artery may result in flow velocities overestimating the degree of stenosis. retrograde flow noted. Antegrade flow is noted in the left vertebral artery. VL/Carotid Duplex Ultrasound Interpretation Summary Irregular calcific plaque with shadowing at the proximal right internal carotid artery with less than 50% stenosis Less than 50% stenosis right external carotid artery Smooth plaque at the proximal left internal carotid artery with tortuosity note d. 50 to 69% stenosis of the left mid internal carotid artery Retrograde flow was noted in the proximal left external carotid artery Patent and antegrade vertebral arteries bilaterally It would appear that there is recanalized retrograde flow within the left exter nal carotid artery from the previous examination of November 29, 2020 Ordering Physician: Ok Swan Referring Physician: Demetrice Sung Performed By: Digna Burdick, OLIVIA, RVT
== END | disposition home or self-care (01) ==
PROVIDERS: PCP Internal Medicine; Referring Provider Surgery; Visit Provider Surgery
DX: I65.23 Occlusion and stenosis of bilateral carotid arteries (principal)
CPT/HCPCS: 93880

== ENCOUNTER 2022-11-16 10:59 | Emergency (ER) | payer MEDICARE, SELFPAY ==
[2022-11-16 11:00] VITALS: BP 171/61; PULSE 64; RESP 18; TEMP 36; O2SAT 97; BMI 26.4
--- NOTE | 2022-11-16 11:08 | EDS_ITS ---
HPI History of Present Illness Chief Complaint: Hypertension Narrative Narrative: 82-year-old female with history of hypertension presenting for evaluation of generalized weakness. She also states he feels a little lightheaded. Her blood pressures have been high outpatient. She states that her PCP recently changed her from losartan back to lisinopril because she reports it was not helping. She was also placed on Lasix due to lower extremity edema. She does not complain of shortness of breath. She states she was seen by Dr. Ok Swan recently due to carotid stenosis and he recommended having a renal artery ultrasound to look for renal artery stenosis which has not been performed yet. Patient was also referred to a Dr. Lamb. She has not made this appointment yet. She states that he is a blood pressure specialist. Patient has mild left- sided headache. [facility] Medical History Acute right hip pain Atherosclerotic heart disease of [place] coronary artery without angina pectoris Bilateral carotid artery stenosis Carotid bruit Celiac artery stenosis Diverticulosis Dysphagia Essential (primary) hypertension GERD (gastroesophageal reflux disease) Hemorrhoids History of bacterial pneumonia History of Helicobacter pylori infection HLD (hyperlipidemia) LVH (left ventricular hypertrophy) NSTEMI (non-ST elevated myocardial infarction) Osteoarthritis Renal cysts, acquired, bilateral Secondary pulmonary arterial hypertension Unstable angina Home Medications aspirin 81 mg tablet,delayed release 81 mg PO DAILY@0800 12/27/13 [History Last Taken 07/13/18] atorvastatin 40 mg tablet 40 mg PO QHS 12/27/13 [History Last Taken Unknown] clopidogrel 75 mg tablet 75 mg PO DAILY 01/12/17 [History Last Taken 07/13/18] isosorbide mononitrate 60 mg tablet,extended release 24 hr 60 mg PO DAILY #90 tabs 08/10/20 [Rx Last Taken Unknown] olopatadine 0.2 % eye drops (Pataday) 1 drp ophthalmic (eye) DAILY 08/29/20 [History Last Taken Unknown] vit C 250 mg-vit E 90 mg-zinc 40 mg-copper 1 [id number] capsule (PreserVision AREDS-2) 1 tab PO BID 08/29/20 [History Last Taken Unknown] nitroglycerin 0.4 mg sublingual tablet 0.4 mg sublingual Q5-15M PRN chest pain #25 tabs 09/25/20 [Rx Last Taken Unknown] famotidine 20 mg tablet 20 mg PO BID 11/24/20 [History Last Taken Unknown] metoprolol succinate 50 mg tablet,extended release 24 hr 25 mg PO BID 08/21/21 [History Last Taken Unknown] azithromycin 250 mg tablet 250 mg PO DAILY 09/03/22 [History Last Taken Unknown] diltiazem HCl 120 mg capsule,extended release 24 hr 120 mg PO BID 09/03/22 [History Last Taken Unknown] melatonin 5 mg capsule 5 mg PO QHS PRN 09/03/22 [History Last Taken Unknown] propylene glycol 0.6 % eye drops (Systane Balance) 1 drp ophthalmic (eye) DAILY PRN 09/03/22 [History Last Taken Unknown] clonidine HCl 0.1 mg tablet 0.1 mg PO .COMPLEX 11/11/22 [History Last Taken Unknown] furosemide 20 mg tablet 20 mg PO DAILY 11/11/22 [History Last Taken Unknown] losartan 100 mg tablet 100 mg PO DAILY 11/11/22 [History Last Taken Unknown] Allergy/AdvReac Type Severity Reaction Status Date / Time hydrocodone bitartrate AdvReac Other Verified 11/16/22 11:00 [From Vicodin] metronidazole AdvReac nausea Verified 11/16/22 11:00 Family History Father Cancer Surgical History History of bladder surgery History of coronary artery stent placement (12/07/12) History of esophagogastroduodenoscopy (EGD) History of excision of pilonidal cyst History of hysterectomy History of laparoscopic appendectomy History of laparoscopic cholecystectomy History of left heart catheterization (06/2018) History of tubal ligation historybladder surgery Hx of cataract extraction Social History Smoking Status: Former smoker alcohol intake: never substance use type: does not use caffeine: Yes what type of physical activity do you participate in: none frequency: does not exercise seatbelt use: always ROS ROS ED ROS Narrative Lightheadedness Constitutional Constitutional ED: Denies chills, fever(s) or sweats Eyes Eyes: Denies blurry vision or change in vision ENT ENT ED: Denies ear pain, rhinorrhea or sore throat Cardiovascular Cardiovascular: Denies chest pain, palpitations or racing heartbeat Respiratory/Chest Respiratory/Chest: Denies cough, dyspnea or sputum Gastrointestinal Gastrointestinal: Denies abdominal pain, constipation, diarrhea or vomiting Genitourinary Genitourinary ED: Denies dysuria, hematuria or urinary frequency Musculoskeletal Musculoskeletal: Denies arthralgias, myalgias or neck pain Integumentary Denies abscess, Abrasions or rash Neurologic Neurologic: Reports headache(s); Denies paresthesias or weakness Psychiatric Psychiatric: Denies anxiety, depression, suicidal ideation or suicidal thoughts Endocrine Endocrinology: Denies polydipsia or polyuria EXAM Physical Exam Const Vital Signs: 11/16/22 11:00 11/16/22 11:15 11/16/22 12:06 Temperature 96.8 F L Temperature Source Temporal Pulse Rate 64 Respiratory Rate 18 Respiratory Pattern Normal Blood Pressure 171/61 H Blood Pressure Mean 97 Pulse Ox 97 Oxygen Delivery Method Room Air Room Air 11/16/22 13:08 Temperature Temperature Source Pulse Rate 58 L Respiratory Rate 18 Respiratory Pattern Blood Pressure 172/64 H Blood Pressure Mean 100 Pulse Ox 97 Oxygen Delivery Method Room Air Positive well nourished General Appearance ED: NAD; Negative for pallor HEENT Reports moist mucous membranes Negative for trauma Eyes PERRL and EOMs intact bilaterally General Eye ED: Negative for pale conjunctiva or scleral icterus Neck no lymphadenopathy Chest Wall inspection of chest normal and palpation of chest normal Resp normal respiratory effort and clear to auscultation bilaterally Auscultation: Negative for rales, rhonchi or wheezes Cardio regular rate and regular rhythm GI normal to inspection, nondistended, normoactive bowel sounds Neuro oriented x3 and CN's II-XII intact bilaterally Sensorium / Orientation: alert Motor Exam: strength 5/5 throughout Psych mental status grossly normal Skin no rashes or lesions noted and no wounds General Skin Exam: Negative for jaundice or pallor MDM MDM MDM Narrative Medical decision making narrative: 82-year-old female presenting with mild lightheadedness and generalized weakness. Apparently her blood pressure has been elevated on outpatient basis. Differential at this point includes but is not limited to hypertensive urgency/emergency, intracranial hemorrhage, ACS, dehydration, electrolyte abnormality recently changed from losartan to lisinopril and added Lasix for blood pressure. She does not have any chest pain or shortness of breath. Bec ause of her lightheadedness I did obtain an EKG which appears to be sinus bradycardia with a ventricular rate of 59 bpm without sign of ischemic change with occasional PVCs. CBC will be obtained to assess white blood cell count and differential. Renal function electrolytes will be obtained to the lightheadedness to check for dehydration, electrolyte imbalance, glucose and anion gap. High-sensitivity troponin to assess for cardiac etiology. BNP for the same reason. Chest x-ray will be obtained rule out a pulmonary source of her lightheadedness. Patient's current blood pressure is 171/61. CBC shows a white blood cell count of 6.2, hemoglobin 28, platelets 171. Renal function and electrolytes are normal. BNP slightly elevated at 188.3. Chest x-ray was obtained as part of her cardiac work-up and on my interpretation shows no acute cardiopulmonary process. There is no evidence of CHF. Radiologist represents and agrees. Patient is also not hypoxic, tachypneic, tachycardic. CT brain was ordered to assess for her headache given the presence of hypertension and this is negative for acute intracranial process. Patient blood pressures are elevated today but I do not believe they need to be emergently lowered. I spoke to Dr. Sung who had stated that she has been seeing him for weeks to titrate her blood pressure down. She was given clonidine 0.1 mg to take twice a day for elevated blood pressures if needed. She is supposed to be still taking her lisinopril, but he states that she requested this because the losartan was not working. That she has been calling the office several times a day and appears to be anxious over the blood pressure being elevated. She was started on BuSpar but states this made her feel weird and she did not want to do it anymore. The patient was referred to a eastern philosophy professor to help get her blood pressure under better control and she has an appointment on Friday. He recommended continuing her current medications as prescribed until she can make follow-up. This was discussed with her and she is amenable to this. She is discharged home in stable condition. Impression: 1. Hypertension 2. Headache 3. Lightheadedness Lab Data Labs: Laboratory Results - last 24 hr 11/16/22 11/16/22 11/16/22 12:06 12:06 12:06 WBC 6.2 RBC 4.52 Hgb 13.8 Hct 44.2 MCV 97.8 MCH 30.5 MCHC 31.2 L RDW Std Deviation 51.8 H RDW Coeff of Daphnie 14.4 Plt Count 171 MPV 11.3 Immature Gran % (Auto) 0.200 Neut % (Auto) 73.0 H Lymph % (Auto) 19.4 [place] % (Auto) 6.1 Eos % (Auto) 0.5 Baso % (Auto) 0.8 Absolute Neuts (auto) 4.5 Absolute Lymphs (auto) 1.20 Nucleated RBC % 0 Sodium 142 Potassium 3.5 Chloride 108 H Carbon Dioxide 30.0 Anion Gap 4 L BUN 19 H Creatinine 0.89 Estim Creat Clear Calc 38.04 Est GFR (MDRD) Af Amer 78 Est GFR (MDRD) Non-Af 64 BUN/Creatinine Ratio 21.3 H Glucose 135 H Calcium 9.2 Troponin I High Sens < 3 L B-Natriuretic Peptide 188.3 H Radiography Diagnostic Testing: Clinical Impression(s) from Imaging Studies Brain CT 11/16/22 11:56 IMPRESSION: Normal unenhanced CT scan of the brain. Electronically Signed: Steve Lawson MD at 13:38 EST Reading Location ID and State: [facility] / [place] , Service support , Chest X-Ray 11/16/22 12:19 IMPRESSION: Degenerative changes, as described above. No demonstrated acute cardiopulmonary process. Electronically Signed: Steve Lawson MD at 12:39 EST , Discharge Plan Triage Chief Complaint: Hypertension ED Provider: Rip Martinez Dx/Rx/DC Orders Instructions: ED Hypertension, Established Prescriptions: No Action isosorbide mononitrate 60 mg tablet extended release 24 hr 60 mg PO DAILY Qty: 90 3RF olopatadine [Pataday] 0.2 % drops 1 drp OPHTHALMIC DAILY PreserVision AREDS-2 [id number]-mg capsule 1 tab PO BID Rx Instructions: administer with meals famotidine 20 mg tablet 20 mg PO BID metoprolol succinate 50 mg tablet extended release 24 hr 25 mg PO BID diltiazem HCl 120 mg capsule,extended release 24hr 120 mg PO BID melatonin 5 mg capsule 5 mg PO QHS PRN Systane Balance 0.6 % drops 1 drp ophthalmic (eye) DAILY PRN azithromycin 250 mg tablet 250 mg PO DAILY furosemide 20 mg tablet 20 mg PO DAILY losartan 100 mg tablet 100 mg PO DAILY clonidine HCl 0.1 mg tablet 0.1 mg PO .COMPLEX Rx Instructions: 0.1 mg orally twice a day for SBP >160.; atorvastatin 40 MG tablet 40 mg PO QHS aspirin 81 MG tablet 81 mg PO DAILY@0800 clopidogrel 75 MG tablet 75 mg PO DAILY nitroglycerin 0.4 mg tablet, sublingual 0.4 mg SUBLINGUAL Q5-15M PRN (Reason: chest pain) Qty: 25 3RF Rx Instructions: until response; do not exceed 3 doses per episode Primary Care Provider: Demetrice Sung Referrals: Demetrice Sung MD [Primary Care Provider] - Disposition Disposition: Home, Self Care
--- NOTE | 2022-11-16 11:55 | EKG12_ITS ---
Test Reason : HTN Blood Pressure : / mmHG Vent. Rate : 059 BPM Atrial Rate : 059 BPM P-R Int : 122 ms QRS Dur : 082 ms QT Int : 438 ms P-R-T Axes : 056 008 033 degrees QTc Int : 433 ms Sinus bradycardia with occasional Premature ventricular complexes Otherwise normal ECG Confirmed by LUDIVINA MAGANA, SHANIA ([id number]), index editor JUANY DARLING ([id number]) on 11/18/2022 10:45:41 AM Referred By: Confirmed By:SHANIA FLORENCE MD
--- NOTE | 2022-11-16 11:56 | CT_ITS ---
STUDY: CT BRAIN WITHOUT CONTRAST REASON FOR EXAM: Female, 82 years old. Headache hypertensive RADIATION DOSAGE (If Supplied By Facility): CTDIvol = ( 44.99 ) mGy, DLP = ( 745.49 ) mGycm TECHNIQUE: Transaxial CT imaging of the brain was performed without administration of intravenous contrast material. Individualized dose optimization techniques were used for this CT. COMPARISON: None. FINDINGS: Normal soft tissue structures. There is hyperostosis frontalis internus. Normal size ventricles and extra-axial spaces for the patient''s age. Normal white matter tracts of the cerebral hemispheres. Normal basal ganglia and thalami. Normal brainstem. Normal cerebellum. No visualized dense artery sign or sulcal effacement or parenchymal edema. There is no intracranial hemorrhage. There are no findings of an acute ischemic infarction. Normal visualized paranasal sinuses. CT/Brain/Head without Contrast IMPRESSION: Normal unenhanced CT scan of the brain. Electronically Signed: Steve Lawson MD at 13:38 EST ,
[2022-11-16 12:16] LABS: Absolute Neutrophil Count 4.5 X10^3/uL (2.0-7.7); Basophil# 0.05 X10^3/uL; Basophil% 0.8 % (0-1); Eosinophil# 0.03 X10^3/uL; Eosinophils% 0.5 % (0-5); Hematocrit 44.2 % (37-47); Hemoglobin 13.8 g/dL (12.0-15.0); Lymphocyte % 19.4 % (19-41); Mean Corp Hgb Conc 31.2 g/dL (32-36); Mean Corpuscular Hgb 30.5 pg (27.0-32.0); Mean Corpuscular Volume 97.8 fL (81-99); Mean Platelet Vol. 11.3 fl (6.2-12.0); Monocyte# 0.38 X10^3/uL; Monocyte% 6.1 % (0-10); NRBC Flagged by Analyzer 0 % (0-5); Neutrophil # 4.51 X10^3/uL (2.7-7.7); Platelet Count 171 K/mm3 (150-450); RBC Distribution Width CV 14.4 % (11.6-14.6); RBC Distribution Width SD 51.8 fl (35.1-43.9); Red Blood Count 4.52 M/mm3 (4.2-5.4); White Blood Count 6.2 K/mm3 (4.4-11.0)
--- NOTE | 2022-11-16 12:19 | RAD_ITS ---
STUDY: X-RAY CHEST REASON FOR EXAM: Female, 82 years old. chest pain TECHNIQUE: Single AP portable view of the chest. COMPARISON: October 10, 2020 FINDINGS: The lungs are clear and expanded. There is no demonstrated pleural abnormality. Normal size heart. Normal mediastinum and hilton. Normal visualized pulmonary arteries. There is atherosclerotic calcification of the aortic arch with tortuosity. There are diffuse degenerative changes of the visualized thoracic spine. Normal visualized ribs, clavicles, and shoulders. There is no demonstrated abnormality of the visualized soft tissue structures of the upper abdomen. RAD/Chest 1 View (Portable) IMPRESSION: Degenerative changes, as described above. No demonstrated acute cardiopulmonary process. Electronically Signed: Steve Lawson MD at 12:39 EST ,
[2022-11-16 12:37] LABS: Anion Gap 4 (5-15); BUN 19 mg/dL (7-18); BUN/Creat Ratio 21.3 RATIO (10-20); Calcium,Total 9.2 mg/dL (8.5-10.1); Chloride 108 mmol/L (98-107); Creatinine, Serum 0.89 mg/dL (0.55-1.02); EST Glomerular Filtration Rate 64 mL/min (>60); Est Glom Filt Rate - Afr Amer 78 mL/min (>60); Estimated Creatinine Clearance 38.04 ml/min; Glucose 135 mg/dL (74-106); Potassium 3.5 mmol/L (3.5-5.1); Sodium Level 142 mmol/L (136-145); Troponin-I HS < 3 pg/mL (3.0-54.0)
[2022-11-16 13:08] VITALS: BP 172/64; PULSE 58; RESP 18; O2SAT 97
[2022-11-16 13:21] LABS: BNP,B-Type NATRIURETIC PEPTIDE 188.3 pg/mL (0-100)
[2022-11-16 15:43] VITALS: BP 172/64; RESP 19; O2SAT 100
== END 2022-11-16 15:45 | disposition home or self-care (01) ==
PROVIDERS: Emergency Provider Student in an Organized Health Care Education/Training Program; PCP Internal Medicine; Visit Provider Student in an Organized Health Care Education/Training Program
DX: R42 Dizziness and giddiness (principal); I10 Essential (primary) hypertension; R51.9 Headache, unspecified; I25.10 Atherosclerotic heart disease of native coronary artery without angina pectoris; E78.5 Hyperlipidemia, unspecified; Z87.891 Personal history of nicotine dependence; Z79.899 Other long term (current) drug therapy
CPT/HCPCS: 70450; 71045; 80048; 83880; 84484; 85025; 93005; 99284; A4216

== ENCOUNTER → 2022-11-19 | Outpatient (CLI) | payer MEDICARE, SELFPAY ==
--- NOTE | 2022-11-19 08:21 | RDU_ITS ---
Reason For Study: Hypertension Right Renal Artery Left Renal Artery Right renal artery ostium 88.7/15.7 Left renal artery ostium 144.8/12.7 RSV/EDV. PSV/EDV. Right renal artery proximal Left renal artery proximal PSV/EDV 81.8/13.4 PSV/EDV. 139.7/15.3 . Right renal artery mid 110.8/13.1 Left renal artery mid 91.2/11.7 PSV/EDV. PSV/EDV . Right renal artery distal Left renal artery distal 97.9/10.0 150.6/21.1 PSV/EDV. PSV/EDV. Right RAR 1.66. Left RAR 1.60. Right Renal Parenchyma Left Renal Parenchyma Upper Pole Medula 34.0/7.1 PSV/EDV. Left upper pole medulla 42.8/6.3 Right upper pole medulla EDR 0.20 . PSV/EDV . Right upper pole medulla R.I. Left upper pole medulla EDR 0.10 . 0.79 . Left upper pole medulla R.I. 0.85 . Upper Solo Cortx 16.4/7.6 PSV/EDV. UP Cortex 26.4/7.2 PSV/EDV. Right upper pole cortex EDR 0.50 . Left upper pole cortex EDR 0.30 . Right upper pole cortex R.I. 0.54 . Left upper pole cortex R.I. 0.73 . Right lower Pole medulla 39.0/7.1 Left lower Pole medulla 35.5/7.2 PSV/EDV . PSV/EDV . Right lower pole medulla EDR 0.20 . Left lower pole medulla EDR 0.20 . Right lower pole medulla R.I. Left lower pole medulla R.I. 0.80 . 0.82 . Lower Pole Cortx 23.6/6.6 PSV/EDV. Lower Pole Cortex 14.8/4.3 PSV/EDV. Left lower pole cortex EDR 0.30 . Right lower pole cortex EDR 0.30 . Left lower pole cortex R.I. 0.72 . Right lower pole cortex R.I. 0.71 . Left Renal Hilar Right Renal Hilar LT Hilar avg 129.3/15.1 PSV/EDV . Right Hilar avg 124.3/15.0 PSV/EDV. Left hilar acceleration time 30 Right hilar acceleration time 30 m/sec. m/sec. Left Renal Dimensions Right Renal Dimensions Left kidney size 10.50 cm . Right kidney size 9.50 cm . Left cortical dimension 1.31 cm . Right cortical dimension 0.91 cm . Aorta Proximal abdominal aorta 1.4 cm . Proximal abdominal aorta peak systolic velocity is 141.7 cm/sec . Distal abdominal aorta 1.1 cm . Distal abdominal aorta peak systolic velocity is 90.6 cm/sec . Elevated velocties noted at proximal celiac artery 482.5/82.8 cm/s. VL/Renal Artery Duplex Ultrasound Interpretation Summary Maximal aortic diameter 1.4 cm Greater than 70% stenosis celiac artery Less than 60% stenosis right renal artery Right renal length 9.5 cm Less than 60% stenosis left renal artery Left renal length 10.5 cm Abnormal renal resistive indices bilaterally suggestive intrinsic renal parench ymal disease Ordering Physician: Ok Swan Referring Physician: Ever Sung Performed By: Alex Fernandes, RVT
== END | disposition home or self-care (01) ==
LOC: CVS 08:21
PROVIDERS: PCP Internal Medicine; Visit Provider Surgery
DX: I77.4 Celiac artery compression syndrome (principal); I10 Essential (primary) hypertension
CPT/HCPCS: 93975

== ENCOUNTER 2023-01-07 10:24 | Emergency (ER) | payer MEDICARE, SELFPAY ==
[2023-01-07 10:25] VITALS: BP 175/59; PULSE 67; RESP 18; TEMP 36.6; O2SAT 94; BMI 27.3
--- NOTE | 2023-01-07 10:51 | EKG12_ITS ---
Test Reason : PAIN Blood Pressure : / mmHG Vent. Rate : 067 BPM Atrial Rate : 067 BPM P-R Int : 128 ms QRS Dur : 072 ms QT Int : 398 ms P-R-T Axes : 058 007 034 degrees QTc Int : 420 ms Normal sinus rhythm Possible Left atrial enlargement Nonspecific ST abnormality Abnormal ECG Confirmed by NARGIS MAGANA, RHETT ([id number]), market editor JUANY DARLING ([id number]) on 01/09/2023 9:29:48 AM Referred By: Confirmed By:RHETT BARILLAS MD
[2023-01-07 11:16] LABS: Bacteria 0 SEEN /hpf (None Seen); Mucous, Urine 0 SEEN /hpf (<or=2+); Red Blood Cells-Urine 0 SEEN /hpf (0-5)
[2023-01-07] MEDS: Morphine 4 MG/ML Syringe IV (11:16)
[2023-01-07 11:18] LABS: Color, Urine Yellow (Yellow); Glucose, Dipstick Normal (Normal); Ketone-Dipstick Negative (Negative); Leukocyte Esterase-Dipstick 25 /ul (Negative); Nitrite-Dipstick Negative (Negative); Occult Blood-Urine Negative /ul (Negative); Protein-Dipstick Negative (Negative); Urine Bilirubin Dipstick Negative (Negative); Urine Clarity Sl. Cloudy (Clear); Urine Urobilinogen Normal (Normal)
[2023-01-07] MEDS: Ondansetron 4 MG/2 ML Vial IV (11:19)
[2023-01-07 11:25] LABS: Absolute Lymphocyte Count 1.61 X10^3/uL (0.83-4.51); Absolute Neutrophil Count 4.6 X10^3/uL (2.0-7.7); Basophil# 0.06 X10^3/uL; Basophil% 0.9 % (0-1); Eosinophil# 0.03 X10^3/uL; Eosinophils% 0.4 % (0-5); Hematocrit 46.3 % (37-47); Lymphocyte # 1.61 X10^3/ul (0.83-4.51); Lymphocyte % 23.9 % (19-41); Mean Corp Hgb Conc 32.4 g/dL (32-36); Mean Corpuscular Hgb 30.9 pg (27.0-32.0); Mean Corpuscular Volume 95.5 fL (81-99); Monocyte# 0.46 X10^3/uL; Monocyte% 6.8 % (0-10); NRBC Flagged by Analyzer 0 % (0-5); Neutrophil # 4.56 X10^3/uL (2.7-7.7); Neutrophil % 67.7 % (47-70); Platelet Count 161 K/mm3 (150-450); RBC Distribution Width CV 14.2 % (11.6-14.6); RBC Distribution Width SD 50.3 fl (35.1-43.9); Red Blood Count 4.85 M/mm3 (4.2-5.4); White Blood Count 6.7 K/mm3 (4.4-11.0)
[2023-01-07 11:25] LABS: Squamous Epithelial Cells - UA 0-5 SEEN /hpf (5-10); White Blood Cells 0-5 SEEN /hpf (0-5)
--- NOTE | 2023-01-07 11:38 | EDS_ITS ---
HPI History of Present Illness Chief Complaint: Back Narrative Narrative: 82-year-old female presenting with back pain. She states it started in her upper back in the middle the morning while she was rolled over. She states it was very achy and radiated to the chest. She became nauseous. She denies feeling lightheaded or dizzy. She does admit to being a little bit short of breath with it. She states the chest pain is now resolved and she has pain in the upper back still but now has pain in the lower right flank. Denies a history of kidney stones. No dysuria or hematuria. No maria fernanda abdominal pain. No history of trauma. No saddle anesthesia or paresthesia no loss of bladder or bowel control. [facility] Medical History Acute right hip pain Atherosclerotic heart disease of cahto coronary artery without angina pectoris Bilateral carotid artery stenosis Carotid bruit Celiac artery stenosis Diverticulosis Dysphagia Essential (primary) hypertension GERD (gastroesophageal reflux disease) Hemorrhoids History of bacterial pneumonia History of Helicobacter pylori infection HLD (hyperlipidemia) LVH (left ventricular hypertrophy) NSTEMI (non-ST elevated myocardial infarction) Osteoarthritis Renal cysts, acquired, bilateral Secondary pulmonary arterial hypertension Unstable angina Home Medications aspirin 81 mg tablet,delayed release 81 mg PO DAILY@0800 12/27/13 [History Last Taken 07/13/18] atorvastatin 40 mg tablet 40 mg PO QHS 12/27/13 [History Last Taken Unknown] clopidogrel 75 mg tablet 75 mg PO DAILY 01/12/17 [History Last Taken 07/13/18] isosorbide mononitrate 60 mg tablet,extended release 24 hr 60 mg PO DAILY #90 tabs 08/10/20 [Rx Last Taken Unknown] olopatadine 0.2 % eye drops (Pataday) 1 drp ophthalmic (eye) DAILY 08/29/20 [History Last Taken Unknown] vit C 250 mg-vit E 90 mg-zinc 40 mg-copper 1 [id number] capsule (PreserVision AREDS-2) 1 tab PO BID 08/29/20 [History Last Taken Unknown] nitroglycerin 0.4 mg sublingual tablet 0.4 mg sublingual Q5-15M PRN chest pain #25 tabs 09/25/20 [Rx Last Taken Unknown] famotidine 20 mg tablet 20 mg PO BID 11/24/20 [History Last Taken Unknown] metoprolol succinate 50 mg tablet,extended release 24 hr 25 mg PO BID 08/21/21 [History Last Taken Unknown] azithromycin 250 mg tablet 250 mg PO DAILY 09/03/22 [History Last Taken Unknown] diltiazem HCl 120 mg capsule,extended release 24 hr 120 mg PO BID 09/03/22 [History Last Taken Unknown] melatonin 5 mg capsule 5 mg PO QHS PRN Sleep 09/03/22 [History Last Taken Unknown] propylene glycol 0.6 % eye drops (Systane Balance) 1 drp ophthalmic (eye) DAILY PRN Dry Eyes 09/03/22 [History Last Taken Unknown] clonidine HCl 0.1 mg tablet 0.1 mg PO .COMPLEX 11/11/22 [History Last Taken Unknown] furosemide 20 mg tablet 20 mg PO DAILY 11/11/22 [History Last Taken Unknown] losartan 100 mg tablet 100 mg PO DAILY 11/11/22 [History Last Taken Unknown] ondansetron 4 mg disintegrating tablet 4 mg PO Q8H PRN PRN Nausea #14 tabs 01/07/23 [Rx Last Taken Unknown] oxycodone-acetaminophen 5 mg-325 mg tablet (Endocet) 1 tab PO Q6H PRN pain 3 days #12 tabs 01/07/23 [Rx Last Taken Unknown] Allergy/AdvReac Type Severity Reaction Status Date / Time hydrocodone bitartrate AdvReac Other Verified 01/07/23 10:24 [From Vicodin] metronidazole AdvReac nausea Verified 01/07/23 10:24 Family History Father Cancer Surgical History History of bladder surgery History of coronary artery stent placement (12/07/12) History of esophagogastroduodenoscopy (EGD) History of excision of pilonidal cyst History of hysterectomy History of laparoscopic appendectomy History of laparoscopic cholecystectomy History of left heart catheterization (06/2018) History of tubal ligation historybladder surgery Hx of cataract extraction Social History Smoking Status: Former smoker alcohol intake: never substance use type: does not use caffeine: Yes what type of physical activity do you participate in: none frequency: does not exercise seatbelt use: always ROS ROS ED Constitutional Constitutional ED: Denies chills or fever(s) Eyes Eyes: Denies change in vision ENT ENT ED: Denies rhinorrhea or sore throat Cardiovascular Cardiovascular: Reports chest pain Respiratory/Chest Respiratory/Chest: Reports dyspnea and dyspnea on exertion Genitourinary Genitourinary ED: Denies dysuria or hematuria Musculoskeletal Musculoskeletal: Reports back pain; Denies arthralgias or neck pain Integumentary Denies abscess Neurologic Neurologic: Denies headache(s) or paresthesias Psychiatric Psychiatric: Denies anxiety or depression EXAM Physical Exam Const Vital Signs: 01/07/23 10:25 Temperature 97.8 F Temperature Source Temporal Pulse Rate 67 Respiratory Rate 18 Blood Pressure 175/59 H Blood Pressure Mean 97 Pulse Ox 94 Oxygen Delivery Method Room Air Positive well nourished General Appearance ED: NAD HEENT Reports moist mucous membranes Eyes PERRL and EOMs intact bilaterally Resp normal respiratory effort and clear to auscultation bilaterally Auscultation: Negative for rales, rhonchi or wheezes Cardio regular rate and regular rhythm GI normal to inspection, nondistended, normoactive bowel sounds Back/Spine Back/Spine Narrative: Tenderness to palpation T4 paraspinal musculature on the right. There is also some tenderness in the right lower flank not adjacent to the spine. Extremity normal to inspection Neuro oriented x3 Sensorium / Orientation: alert Motor Exam: strength 5/5 throughout Psych mental status grossly normal Skin no rashes or lesions noted MDM MDM MDM Narrative Medical decision making narrative: Patient presenting with primarily back pain but states he had some chest pain earlier in the morning and it radiated from the back to the chest. She admits to some dyspnea and nausea when this episode occurred. Now she is only having back pain. Patient medicated with morphine, Zofran. Given that she is having chest pain differential includes but is not limited to ACS, PE, aortic dissection, pneumonia, pneumothorax, muscle strain, costochondritis. Patient is currently PERC negative for PE as a low suspicion. Is also not having sharp pleuritic pain. He does not have any symptoms of cough, fever, chills so I suspect this is not pneumonia. Patient has history of cardiac disease and HEART score of 4. We will obtain a cardiac work-up including a CBC for white blood cell count, hemoglobin, differential. BMP to assess renal function and electrolytes. High-sensitivity troponin, EKG, chest x-ray as well. Given the patient is having some lower flank pain in addition I will obtain a urinalysis to assess for hematuria versus infection. EKG on my interpretation shows normal sinus rhythm with a ventricular of 67 bpm without sign of ischemic change or dysrhythmia. CBC shows a normal white blood cell count of 6.7. Hemoglobin 15, hematocrit 46.3 platelet count 161. BMP shows a slight increase in her creatinine and some prerenal azotemia. Patient was given 500 cc of IV fluids. Potassium 3.4. Glucose 141 without anion gap. High-sensitivity troponin is less than 3. Chest x-ray on my interpretation shows no acute process. Radiologist are persistent agrees. Patient did have CT of the abdomen pelvis without contrast and there is 1 mm right proximal stones in the ureter. Patient pain well controlled after morphine. She states she has an allergy to Vicodin but cannot take oxycodone/Percocet at home. Urinalysis negative for infection. At this point I feel she is stable for discharge home. I counseled her to drink plenty of fluids. High potassium foods. She can follow-up with urology. She is given a prescription for Percocet and Zofran. She was counseled to take a stool softener and/or laxative if constipation should occur. Return precautions were discussed at length. Impression: 1. Chest pain 2. 1 mm right ureteral calculi 3. Nausea 4. Dehydration Lab Data Labs: Laboratory Results - last 24 hr 01/07/23 01/07/23 01/07/23 11:05 11:20 11:20 WBC 6.7 RBC 4.85 Hgb 15.0 Hct 46.3 MCV 95.5 MCH 30.9 MCHC 32.4 RDW Std Deviation 50.3 H RDW Coeff of Daphnie 14.2 Plt Count 161 MPV 11.0 Immature Gran % (Auto) 0.300 Neut % (Auto) 67.7 Lymph % (Auto) 23.9 [place] % (Auto) 6.8 Eos % (Auto) 0.4 Baso % (Auto) 0.9 Absolute Neuts (auto) 4.6 Absolute Lymphs (auto) 1.61 Nucleated RBC % 0 Sodium 140 Potassium 3.4 L Chloride 101 Carbon Dioxide 29.0 Anion Gap 10 BUN 26 H Creatinine 1.12 H Estim Creat Clear Calc 30.23 Est GFR (MDRD) Af Amer 60 Est GFR (MDRD) Non-Af 50 L BUN/Creatinine Ratio 23.2 H Glucose 141 H Calcium 9.5 Total Bilirubin 1.00 AST 20 ALT 29 Alkaline Phosphatase 100 Troponin I High Sens < 3 L Total Protein 7.7 Albumin 4.0 Globulin 3.7 Albumin/Globulin Ratio 1.1 Urine Color Yellow Urine Clarity Sl. Cloudy Urine pH 6.0 Ur Specific [place] 1.010 Urine Protein Negative Urine Glucose (UA) Normal Urine Ketones Negative Urine Occult Blood Negative Urine Nitrite Negative Urine Bilirubin Negative Urine Urobilinogen Normal Ur Leukocyte Esterase 25 H Urine RBC 0 SEEN Urine WBC 0-5 SEEN Ur Squamous Epith Cells 0-5 SEEN Urine Bacteria 0 SEEN Urine Mucus 0 SEEN Radiography Diagnostic Testing: Clinical Impression(s) from Imaging Studies Chest X-Ray 01/07/23 11:50 IMPRESSION: No acute pulmonary process Electronically Signed: Arsenio Mullen MD at 12:00 EDT Reading Location ID and State: [facility] / [place] , Service support , Abdomen/Pelvis CT 01/07/23 11:59 IMPRESSION: 1. Mild right hydronephrosis with a 1 mm stones seen in the right proximal ureter, consistent with recent passage of the stone 2. 3 mm calyceal stone is also seen in the midpole of the right kidney 3. Moderate to significant diverticulosis. No acute inflammation is seen Electronically Signed: Steve Lawson MD at 12:41 EDT , Discharge Plan Triage Chief Complaint: Back ED Provider: Rip Martinez Dx/Rx/DC Orders Instructions: ED Chest Pain, Noncardiac, ED Kidney Stone w/ Colic Prescriptions: New oxycodone-acetaminophen [Endocet] 5-325 mg tablet 1 tab PO Q6H PRN (Reason: pain) 3 Days Qty: 12 0RF ondansetron 4 mg tablet,disintegrating 4 mg PO Q8H PRN PRN (Reason: Nausea) Qty: 14 0RF No Action isosorbide mononitrate 60 mg tablet extended release 24 hr 60 mg PO DAILY Qty: 90 3RF olopatadine [Pataday] 0.2 % drops 1 drp OPHTHALMIC DAILY PreserVision AREDS-2 [id number]-mg capsule 1 tab PO BID Rx Instructions: administer with meals famotidine 20 mg tablet 20 mg PO BID metoprolol succinate 50 mg tablet extended release 24 hr 25 mg PO BID diltiazem HCl 120 mg capsule,extended release 24hr 120 mg PO BID melatonin 5 mg capsule 5 mg PO QHS PRN (Reason: Sleep) Systane Balance 0.6 % drops 1 drp ophthalmic (eye) DAILY PRN (Reason: Dry Eyes) azithromycin 250 mg tablet 250 mg PO DAILY furosemide 20 mg tablet 20 mg PO DAILY losartan 100 mg tablet 100 mg PO DAILY clonidine HCl 0.1 mg tablet 0.1 mg PO .COMPLEX Rx Instructions: 0.1 mg orally twice a day for SBP >160.; atorvastatin 40 MG tablet 40 mg PO QHS aspirin 81 MG tablet 81 mg PO DAILY@0800 clopidogrel 75 MG tablet 75 mg PO DAILY nitroglycerin 0.4 mg tablet, sublingual 0.4 mg SUBLINGUAL Q5-15M PRN (Reason: chest pain) Qty: 25 3RF Rx Instructions: until response; do not exceed 3 doses per episode Primary Care Provider: Demetrice Sung Referrals: Demetrice Sung MD [Primary Care Provider] - Ora Linton MD [Med Staff - Active Staff] - As soon as possible Disposition Disposition: Home, Self Care
[2023-01-07 11:43] LABS: ALB/GLOB Ratio 1.1 RATIO (0.9-2.4); AST(SGOT) 20 U/L (15-37); Alanine Aminotransfer ALT/SGPT 29 U/L (13-56); Alkaline Phosphatase 100 U/L (45-117); Anion Gap 10 (5-15); BUN 26 mg/dL (7-18); BUN/Creat Ratio 23.2 RATIO (10-20); Calcium,Total 9.5 mg/dL (8.5-10.1); Chloride 101 mmol/L (98-107); Creatinine, Serum 1.12 mg/dL (0.55-1.02); EST Glomerular Filtration Rate 50 mL/min (>60); Est Glom Filt Rate - Afr Amer 60 mL/min (>60); Estimated Creatinine Clearance 30.23 ml/min; Globulin 3.7 g/dL (2.2-4.2); Glucose 141 mg/dL (74-106); Potassium 3.4 mmol/L (3.5-5.1); Protein, Total 7.7 g/dL (6.4-8.2); Sodium Level 140 mmol/L (136-145); Troponin-I HS (w/2H Reflex) < 3 pg/mL (3.0-54.0)
--- NOTE | 2023-01-07 11:50 | RAD_ITS ---
STUDY: X-RAY CHEST REASON FOR EXAM: Female, 82 years old. upper back pain TECHNIQUE: Single AP portable view of the chest. COMPARISON: 11/16/2022 FINDINGS: EKG leads overlie the chest The lungs are clear and expanded. There is no demonstrated pleural abnormality. Normal size heart. Normal mediastinum and h[place]. Normal visualized pulmonary arteries. There is atherosclerotic calcification of the aortic arch with tortuosity. There are diffuse degenerative changes of the visualized thoracic spine. Normal visualized ribs, clavicles, and shoulders. There is no demonstrated abnormality of the visualized soft tissue structures of the upper abdomen. RAD/Chest 1 View (Portable) IMPRESSION: No acute pulmonary process Electronically Signed: Arsenio Mullen MD at 12:00 EDT ,
--- NOTE | 2023-01-07 11:59 | CT_ITS ---
STUDY: CT ABDOMEN AND PELVIS WITHOUT CONTRAST REASON FOR EXAM: Female, 82 years old. flank pain prior surgery appy,augustus,hyster,bladder suspension RADIATION DOSAGE (If Supplied By Facility): CTDIvol = ( 6.77 ) mGy, DLP = ( 306.51 ) mGycm TECHNIQUE: Transaxial images were obtained from the dome of the diaphragm to the symphysis pubis without oral contrast, and without intravenous contrast. Sagittal and coronal images were reconstructed. Individualized dose optimization techniques were used for this CT. COMPARISON: CT of abdomen and pelvis dated October 01, 2014 FINDINGS: There are chronic interstitial fibrotic changes of the lung bases. The visualized portions of the heart are within normal limits. Normal liver. There are surgical clips in the gallbladder fossa consistent with a prior cholecystectomy. Normal spleen. Normal pancreas. Normal bilateral adrenal glands. Mild right hydronephrosis is present with a 1 mm punctate stone seen in the right proximal ureter on image #[id number]. A 3 mm calyceal stone is seen in the midpole of the right kidney as well. Both kidneys are mildly atrophic, left greater than right. A cluster of parapelvic cysts are present in the pelvic region of the left kidney. No hydronephrosis or radiopaque stones are seen on the left.. Normal left kidney. there is no demonstrated hydronephrosis or renal masses or radiopaque stones. Normal visualized stomach. Normal small intestine. There are multiple colonic diverticula consistent with diverticulosis. There is non-visualization of the appendix. No free air or free fluid or bowel dilatation is seen. There is no evidence of bowel obstruction. There is diffuse atherosclerotic calcification of the abdominal aorta, without a demonstrated aneurysm. Normal inferior vena cava. Normal retroperitoneum. Normal urinary bladder. There is absence of the uterus consistent with a prior hysterectomy. Normal abdominal wall. There are diffuse degenerative changes of the visualized lumbar spine. CT/Abdomen/Pelvis without Cont IMPRESSION: 1. Mild right hydronephrosis with a 1 mm stones seen in the right proximal ureter, consistent with recent passage of the stone 2. 3 mm calyceal stone is also seen in the midpole of the right kidney 3. Moderate to significant diverticulosis. No acute inflammation is seen Electronically Signed: Steve Lawson MD at 12:41 EDT ,
[2023-01-07 13:13] VITALS: BP 163/65; PULSE 68; RESP 19
[2023-01-07] MEDS: oxyCODONE 5 MG Tablet PO (13:21)
[2023-01-07 13:22] LABS: Reflex Troponin-HS? (from REC) Y
[2023-01-07 13:48] LABS: Troponin-I HS 6 pg/mL (3.0-54.0)
== END 2023-01-07 13:31 | disposition home or self-care (01) ==
PROVIDERS: Emergency Provider Student in an Organized Health Care Education/Training Program; PCP Internal Medicine; Visit Provider Student in an Organized Health Care Education/Training Program
DX: N13.2 Hydronephrosis with renal and ureteral calculous obstruction (principal); E78.5 Hyperlipidemia, unspecified; I25.10 Atherosclerotic heart disease of native coronary artery without angina pectoris; E86.0 Dehydration; I10 Essential (primary) hypertension; Z87.891 Personal history of nicotine dependence; R07.9 Chest pain, unspecified
CPT/HCPCS: 71045; 74176; 80053; 81001; 84484; 85025; 93005; 96361; 96374; 96375; 99285; J7030; J7040; A4216; J2405

== ENCOUNTER 2023-01-07 21:20 | Emergency (ER) | payer MEDICARE, SELFPAY ==
[2023-01-07 21:21] VITALS: TEMP 36.4; BMI 28.0
[2023-01-07 21:26] VITALS: BP 151/67; PULSE 71; RESP 18; O2SAT 96
--- NOTE | 2023-01-07 21:44 | EDS_ITS ---
HPI History of Present Illness Chief Complaint: Nausea/Vomiting Detail of Chief Complaint: Patient presents with nausea without vomiting Informant: patient Onset/Context/Timing Onset: Hours Context: Sudden Onset Timing: Continuous Quality: Nausea Location: Generalized wooziness of the abdomen Current Severity: Moderate Maximum Severity: Severe Worsened by: Possibly the oxycodone patient was prescribed for her obstructing proximal Relieved by: Nothing Associated Symptoms Associated Symptoms: The right flank pain has improved since he took the pain medicine Narrative Narrative: Patient is an 82-year-old woman. She was seen earlier today by Dr. Martinez. His records were reviewed. The interpretation of the CAT scan with out contrast of the abdomen pelvis was confusing. The CAT scan was independently reviewed by me. There is a stone in the right mid renal pelvis. There is also a proximal right ureteral stone that is causing mild dilatation. Patient denies fever or chills. She reports lightheadedness and significant nausea. Uncertain whether she took the Zofran she was prescribed or when that may have been prescribed. We will ask her. Patient denies headache, visual, ocular auditory symptoms. Patient denies problems with coordination or balance. Patient denies cardiac respiratory symptoms. Prior similar symptoms: Yes (Pain from obstructing proximal ureteral stone. Nausea apparently after loreta) Recent Illness/Hospitalization: Yes [facility] Medical History Acute right hip pain Atherosclerotic heart disease of [place] coronary artery without angina pectoris Bilateral carotid artery stenosis Carotid bruit Celiac artery stenosis Diverticulosis Dysphagia Essential (primary) hypertension GERD (gastroesophageal reflux disease) Hemorrhoids History of bacterial pneumonia History of Helicobacter pylori infection HLD (hyperlipidemia) Kidney stones LVH (left ventricular hypertrophy) NSTEMI (non-ST elevated myocardial infarction) Osteoarthritis Renal cysts, acquired, bilateral Secondary pulmonary arterial hypertension Unstable angina Home Medications aspirin 81 mg tablet,delayed release 81 mg PO DAILY@0800 12/27/13 [History Last Taken 07/13/18] atorvastatin 40 mg tablet 40 mg PO QHS 12/27/13 [History Last Taken Unknown] clopidogrel 75 mg tablet 75 mg PO DAILY 01/12/17 [History Last Taken 07/13/18] isosorbide mononitrate 60 mg tablet,extended release 24 hr 60 mg PO DAILY #90 tabs 08/10/20 [Rx Last Taken Unknown] olopatadine 0.2 % [facility] 1 drp ophthalmic (eye) DAILY 08/29/20 [History Last Taken Unknown] vit C 250 mg-vit E 90 mg-zinc 40 mg-copper 1 [id number] capsule (PreserVision AREDS-2) 1 tab PO BID 08/29/20 [History Last Taken Unknown] nitroglycerin 0.4 mg sublingual tablet 0.4 mg sublingual Q5-15M PRN chest pain #25 tabs 09/25/20 [Rx Last Taken Unknown] famotidine 20 mg tablet 20 mg PO BID 11/24/20 [History Last Taken Unknown] metoprolol succinate 50 mg tablet,extended release 24 hr 25 mg PO BID 08/21/21 [History Last Taken Unknown] azithromycin 250 mg tablet 250 mg PO DAILY 09/03/22 [History Last Taken Unknown] diltiazem HCl 120 mg capsule,extended release 24 hr 120 mg PO BID 09/03/22 [History Last Taken Unknown] melatonin 5 mg capsule 5 mg PO QHS PRN Sleep 09/03/22 [History Last Taken Unknown] propylene glycol 0.6 % eye drops (Systane Balance) 1 drp ophthalmic (eye) DAILY PRN Dry Eyes 09/03/22 [History Last Taken Unknown] clonidine HCl 0.1 mg tablet 0.1 mg PO .COMPLEX 11/11/22 [History Last Taken Unknown] furosemide 20 mg tablet 20 mg PO DAILY 11/11/22 [History Last Taken Unknown] losartan 100 mg tablet 100 mg PO DAILY 11/11/22 [History Last Taken Unknown] ondansetron 4 mg disintegrating tablet 4 mg PO Q8H PRN PRN Nausea #14 tabs 01/07/23 [Rx Last Taken Unknown] oxycodone-acetaminophen 5 mg-325 mg tablet (Endocet) 1 tab PO Q6H PRN pain 3 days #12 tabs 01/07/23 [Rx Last Taken Unknown] Allergy/AdvReac Type Severity Reaction Status Date / Time hydrocodone bitartrate AdvReac Other Verified 01/07/23 21:21 [From Vicodin] metronidazole AdvReac nausea Verified 01/07/23 21:21 Family History Father Cancer Surgical History History of bladder surgery History of coronary artery stent placement (12/07/12) History of esophagogastroduodenoscopy (EGD) History of excision of pilonidal cyst History of hysterectomy History of laparoscopic appendectomy History of laparoscopic cholecystectomy History of left heart catheterization (06/2018) History of tubal ligation historybladder surgery Hx of cataract extraction Social History Smoking Status: Former smoker alcohol intake: never substance use type: does not use caffeine: Yes what type of physical activity do you participate in: none frequency: does not exercise seatbelt use: always ROS ROS ED Constitutional Constitutional ED: Reports sweats; Denies chills, fever(s), subjective or weight loss Eyes Eyes: Denies blurry vision, change in vision or diplopia ENT ENT ED: Reports other Details: Patient has tinnitus ; Denies ear pain, rhinorrhea or sore throat Cardiovascular Cardiovascular: Denies chest pain or palpitations Respiratory/Chest Respiratory/Chest: Denies cough, dyspnea or dyspnea on exertion Gastrointestinal Gastrointestinal: Reports nausea; Denies abdominal pain, diarrhea or vomiting Genitourinary Genitourinary ED: Reports urinary frequency; Denies dysuria or hematuria Musculoskeletal Musculoskeletal: Reports other Details: Right flank pain ; Denies arthralgias, back pain, myalgias or neck pain Integumentary Denies rash Neurologic Neurologic: Reports weakness; Denies paresthesias Hematologic/Lymphatic Hematologic/Lymphatic: Reports systems reviewed and no addt'l complaints, except as documented EXAM Physical Exam Const Vital Signs: 01/07/23 21:21 01/07/23 21:25 01/07/23 21:26 Temperature 97.5 F L Temperature Source Oral Pulse Rate 71 Pulse Rate [Lying] Pulse Rate [Sitting (for 1 minute prior to obtaining)] Pulse Rate [Standing (for 1 minute prior to obtaining)] Respiratory Rate 18 Respiratory Effort Normal Non-Labored Respiratory Pattern Normal Blood Pressure 151/67 H Blood Pressure [Lying] Blood Pressure [Sitting (for 1 minute prior to obtaining)] Blood Pressure [Standing (for 1 minute prior to obtaining)] Blood Pressure Mean 95 Blood Pressure Mean [Lying] Blood Pressure Mean [Sitting (for 1 minute prior to obtaining)] Blood Pressure Mean [Standing (for 1 minute prior to obtaining)] Pulse Ox 96 Oxygen Delivery Method Room Air 01/07/23 22:03 01/07/23 22:38 Temperature Temperature Source Pulse Rate 71 Pulse Rate [Lying] 76 Pulse Rate [Sitting (for 1 minute prior to obtaining)] 74 Pulse Rate [Standing (for 1 minute prior to obtaining)] 80 Respiratory Rate 16 Respiratory Effort Respiratory Pattern Blood Pressure 178/78 H Blood Pressure [Lying] 166/69 H Blood Pressure [Sitting (for 1 minute prior to obtaining)] 167/78 H Blood Pressure [Standing (for 1 minute prior to obtaining)] 178/78 H Blood Pressure Mean 111 Blood Pressure Mean [Lying] 101 Blood Pressure Mean [Sitting (for 1 minute prior to obtaining)] 107 Blood Pressure Mean [Standing (for 1 minute prior to obtaining)] 111 Pulse Ox 93 Oxygen Delivery Method Room Air Positive well nourished and well developed Constitutional Narrative: Patient is slightly diaphoretic and pale looking. General Appearance ED: well developed and pallor; Negative for cyanotic or diaphoretic HEENT Reports moist mucous membranes HEENT Narrative: Head is atraumatic normocephalic. Ears are normal. Nares patent. Posterior pharynx is normal. Eyes PERRL and EOMs intact bilaterally General Eye ED: Negative for pale conjunctiva or scleral icterus Neck no lymphadenopathy, supple and no JVD Chest Wall inspection of chest normal and palpation of chest normal Resp normal respiratory effort and clear to auscultation bilaterally Cardio regular rate, regular rhythm, S1 normal heart sound, S2 normal heart sound and no murmurs GI normal to inspection, nondistended, normoactive bowel sounds, non-tender, non- distended and no masses; Negative for hepatosplenomegaly Back/Spine General Back: CVA tenderness right Extremity normal to inspection Neuro oriented x3 and CN's II-XII intact bilaterally Sensorium / Orientation: alert Psych mental status grossly normal Skin no rashes or lesions noted, no wounds and No skin turgor normal General Skin Exam: pallor; Negative for elasticity normal or jaundice MDM MDM MDM Narrative Medical decision making narrative: Patient was discharged several hours ago laboratory studies were not repeated. We will treat with Zofran for her nausea. She states the pain is markedly improved since taking the oxycodone. Treatment and Re-Evaluation :: Patient was reassessed at 2220. She states her nausea has improved markedly. She does complain of epigastric pain. She does have history of reflux. We will treat with GI cocktail. Patient was reassessed at 2242. Her epigastric pain has essentially resolved. Plan is to discharge to home. Nurse informed that she when patient was asleep she desaturated. She has never been tested for sleep apnea. Patient was instructed follow-up with her doctor for assessment of sleep apnea. Discharge Plan Triage Chief Complaint: Nausea/Vomiting Other Complaint: Dizziness ED Provider: OtisTa Dx/Rx/DC Orders Clinical Impression: Nausea alone, Gastric pain, Nocturnal hypoxia, Essential (primary) hypertension, HLD (hyperlipidemia), Ureteral stone with hydronephrosis, Kidney stone on right side Instructions: ED Vomiting (Adult) Prescriptions: No Action isosorbide mononitrate 60 mg tablet extended release 24 hr 60 mg PO DAILY Qty: 90 3RF olopatadine [Pataday] 0.2 % drops 1 drp OPHTHALMIC DAILY PreserVision AREDS-2 [id number]-mg capsule 1 tab PO BID Rx Instructions: administer with meals famotidine 20 mg tablet 20 mg PO BID metoprolol succinate 50 mg tablet extended release 24 hr 25 mg PO BID diltiazem HCl 120 mg capsule,extended release 24hr 120 mg PO BID melatonin 5 mg capsule 5 mg PO QHS PRN (Reason: Sleep) Systane Balance 0.6 % drops 1 drp ophthalmic (eye) DAILY PRN (Reason: Dry Eyes) azithromycin 250 mg tablet 250 mg PO DAILY furosemide 20 mg tablet 20 mg PO DAILY losartan 100 mg tablet 100 mg PO DAILY clonidine HCl 0.1 mg tablet 0.1 mg PO .COMPLEX Rx Instructions: 0.1 mg orally twice a day for SBP >160.; atorvastatin 40 MG tablet 40 mg PO QHS aspirin 81 MG tablet 81 mg PO DAILY@0800 clopidogrel 75 MG tablet 75 mg PO DAILY oxycodone-acetaminophen [Endocet] 5-325 mg tablet 1 tab PO Q6H PRN (Reason: pain) 3 Days Qty: 12 0RF ondansetron 4 mg tablet,disintegrating 4 mg PO Q8H PRN PRN (Reason: Nausea) Qty: 14 0RF nitroglycerin 0.4 mg tablet, sublingual 0.4 mg SUBLINGUAL Q5-15M PRN (Reason: chest pain) Qty: 25 3RF Rx Instructions: until response; do not exceed 3 doses per episode Primary Care Provider: Demetrice Sung Referrals: Demetrice Sung MD [Primary Care Provider] - 3-5 Days Activity Restrictions/Additional Instructions: 1. Contact your doctor for outpatient sleep study to evaluate for sleep apnea. 2. Eat a cracker or 2 before taking the oxycodone for your right flank pain Disposition Disposition: Home, Self Care
[2023-01-07] MEDS: Ondansetron 4 MG/2 ML Vial IV (21:55)
[2023-01-07 22:03] VITALS: BP 166/69; BP 167/78; BP 178/78; PULSE 74; PULSE 76; PULSE 80
[2023-01-07] MEDS: Mag Hydrox/Al Hydrox/Simeth 30 ML UDC PO (22:37)
[2023-01-07 22:38] VITALS: BP 178/78; PULSE 71; RESP 16; O2SAT 93
--- NOTE | 2023-01-07 22:42 | ED.RN ---
sats down to mid 80s while sleeping and immediately to mid 90s while awake.
--- NOTE | 2023-01-07 22:48 | ED.RN ---
called son Prabhjot and states someone will be to ED to give her a ride home.
== END 2023-01-07 23:25 | disposition home or self-care (01) ==
PROVIDERS: Emergency Provider Emergency Medicine; PCP Internal Medicine; Visit Provider Emergency Medicine
DX: N13.2 Hydronephrosis with renal and ureteral calculous obstruction (principal); I25.10 Atherosclerotic heart disease of native coronary artery without angina pectoris; I10 Essential (primary) hypertension; E78.5 Hyperlipidemia, unspecified; R11.0 Nausea; R09.02 Hypoxemia; R42 Dizziness and giddiness; R35.0 Frequency of micturition; Z87.891 Personal history of nicotine dependence
CPT/HCPCS: J7040; A4216; J2405

== ENCOUNTER 2023-02-21 12:47 | Emergency (ER) | payer MEDICARE, SELFPAY ==
[2023-02-21 12:48] VITALS: BP 159/49; PULSE 66; RESP 18; TEMP 36.1; O2SAT 94; BMI 26.2
--- NOTE | 2023-02-21 13:16 | EKG12_ITS ---
Test Reason : CP Blood Pressure : / mmHG Vent. Rate : 066 BPM Atrial Rate : 066 BPM P-R Int : 122 ms QRS Dur : 078 ms QT Int : 422 ms P-R-T Axes : 055 014 035 degrees QTc Int : 442 ms Sinus rhythm with occasional Premature ventricular complexes Nonspecific ST abnormality Abnormal ECG Confirmed by DELFINA MAGANA, MARISOL ([id number]), order editor JUANY DARLING ([id number]) on 02/24/2023 11:30:14 AM Referred By: Ta Berg Confirmed By:BRIAN MATHIS MD
--- NOTE | 2023-02-21 13:25 | RAD_ITS ---
STUDY: X-RAY CHEST REASON FOR EXAM: Female, 82 years old. Chest pain TECHNIQUE: Single AP portable view of the chest. COMPARISON: Comparison is made with prior study January 07, 2023. FINDINGS: EKG electrodes are seen. Hyperinflation. The lungs are clear. There is no demonstrated pleural abnormality. Normal size heart. Normal mediastinum and [place]. Normal visualized pulmonary arteries. There is atherosclerotic calcification of the aortic arch with tortuosity. There are diffuse degenerative changes of the visualized thoracic spine. Normal visualized ribs, clavicles, and shoulders. There is no demonstrated abnormality of the visualized soft tissue structures of the upper abdomen. RAD/Chest 1 View (Portable) IMPRESSION: Hyperinflation. The lungs are clear. Electronically Signed: Ameya Singh MD at 13:43 EDT ,
[2023-02-21 13:29] LABS: Absolute Lymphocyte Count 1.68 X10^3/uL (0.83-4.51); Absolute Neutrophil Count 3.9 X10^3/uL (2.0-7.7); Basophil# 0.04 X10^3/uL; Basophil% 0.7 % (0-1); Eosinophil# 0.05 X10^3/uL; Eosinophils% 0.8 % (0-5); Hematocrit 41.7 % (37-47); Hemoglobin 13.7 g/dL (12.0-15.0); Lymphocyte # 1.68 X10^3/ul (0.83-4.51); Lymphocyte % 27.5 % (19-41); Mean Corp Hgb Conc 32.9 g/dL (32-36); Mean Corpuscular Hgb 31.1 pg (27.0-32.0); Mean Corpuscular Volume 94.8 fL (81-99); Mean Platelet Vol. 10.5 fl (6.2-12.0); Monocyte% 6.5 % (0-10); NRBC Flagged by Analyzer 0 % (0-5); Neutrophil # 3.92 X10^3/uL (2.7-7.7); Neutrophil % 64.2 % (47-70); Platelet Count 178 K/mm3 (150-450); RBC Distribution Width CV 14.5 % (11.6-14.6); RBC Distribution Width SD 50.1 fl (35.1-43.9); White Blood Count 6.1 K/mm3 (4.4-11.0)
--- NOTE | 2023-02-21 13:32 | ED.VIS.CHEST ---
HPI History of Present Illness Chief Complaint: Chest Pain Detail of Chief Complaint: Heartburn Informant: patient Onset/Context/Timing Onset: Today Activity at onset: sudden and sleep Timing: Continuous Quality: Positive for Burning Location: Substernal Current Severity: Mild Maximum Severity: Moderate Worsened By: Nothing Relieved By: Nothing and - (Patient states she took antiacid without improvement. She took Tylenol without improvement.) Associated Symptoms: Positive for Dyspnea and Lightheadedness; Negative for Nausea, Vomiting, Diaphoresis, Cough, Fever, Acid Reflux or Palpitations Narrative Narrative: Patient is an 82-year-old woman with history of atherosclerotic heart disease status post 2 stents placed in 2013. She also has history of hypertension, pulmonary hypertension, hyperlipidemia and bilateral carotid artery stenosis. Patient describes the discomfort as a burning sensation radiating to her neck bilaterally and into her back. When she had her cardia event in 2013 she had back pain and left-sided chest pain. She does not remember the quality of the pain. She denies black or maroon stool. She denies fever, chills night sweats. She denies weight gain or weight loss. She does have history of hiatal hernia. States this pain is different. There are no alleviating, exacerbating factor there is. Prior Similar Symptoms: No Recent Illness/Hospitalization: No CVD Risk Factors: Positive for Hypertension, Diabetes, Smoking (Former) and - (Known coronary artery disease) PE Risk Factors: Negative for Recent Travel/Surgery, Recent Immobilization, Prior DVT or PE, Cancer or OCP + Smoking + >/=35 TAD Risk Factors: Positive for Hypertension; Negative for Marfan's Syndrome or Family History PFSH [facility] Medical History Acute right hip pain Atherosclerotic heart disease of [place] coronary artery without angina pectoris Bilateral carotid artery stenosis Carotid bruit Celiac artery stenosis Diverticulosis Dysphagia Essential (primary) hypertension GERD (gastroesophageal reflux disease) Hemorrhoids History of bacterial pneumonia History of Helicobacter pylori infection HLD (hyperlipidemia) Kidney stones LVH (left ventricular hypertrophy) NSTEMI (non-ST elevated myocardial infarction) Osteoarthritis Renal cysts, acquired, bilateral Secondary pulmonary arterial hypertension Unstable angina Home Medications aspirin 81 mg tablet,delayed release 81 mg PO DAILY@0800 12/27/13 [History Last Taken 07/13/18] atorvastatin 40 mg tablet 40 mg PO QHS 12/27/13 [History Last Taken Unknown] clopidogrel 75 mg tablet 75 mg PO DAILY 01/12/17 [History Last Taken 07/13/18] isosorbide mononitrate 60 mg tablet,extended release 24 hr 60 mg PO DAILY #90 tabs 08/10/20 [Rx Last Taken Unknown] olopatadine 0.2 % eye drops (Pataday) 1 drp ophthalmic (eye) DAILY 08/29/20 [History Last Taken Unknown] vit C 250 mg-vit E 90 mg-zinc 40 mg-copper 1 [id number] capsule (PreserVision AREDS-2) 1 tab PO BID 08/29/20 [History Last Taken Unknown] nitroglycerin 0.4 mg sublingual tablet 0.4 mg sublingual Q5-15M PRN chest pain #25 tabs 09/25/20 [Rx Last Taken Unknown] famotidine 20 mg tablet 20 mg PO BID 11/24/20 [History Last Taken Unknown] metoprolol succinate 50 mg tablet,extended release 24 hr 25 mg PO BID 08/21/21 [History Last Taken Unknown] azithromycin 250 mg tablet 250 mg PO DAILY 09/03/22 [History Last Taken Unknown] diltiazem HCl 120 mg capsule,extended release 24 hr 120 mg PO BID 09/03/22 [History Last Taken Unknown] melatonin 5 mg capsule 5 mg PO QHS PRN Sleep 09/03/22 [History Last Taken Unknown] propylene glycol 0.6 % eye drops (Systane Balance) 1 drp ophthalmic (eye) DAILY PRN Dry Eyes 09/03/22 [History Last Taken Unknown] clonidine HCl 0.1 mg tablet 0.1 mg PO .COMPLEX 11/11/22 [History Last Taken Unknown] furosemide 20 mg tablet 20 mg PO DAILY 11/11/22 [History Last Taken Unknown] losartan 100 mg tablet 100 mg PO DAILY 11/11/22 [History Last Taken Unknown] ondansetron 4 mg disintegrating tablet 4 mg PO Q8H PRN PRN Nausea #14 tabs 01/07/23 [Rx Last Taken Unknown] oxycodone-acetaminophen 5 mg-325 mg tablet (Endocet) 1 tab PO Q6H PRN pain 3 days #12 tabs 01/07/23 [Rx Last Taken Unknown] omeprazole 40 mg capsule,delayed release 40 mg PO DAILY #30 caps 02/21/23 [Rx Last Taken Unknown] sucralfate 1 gram tablet 1 g PO BID #30 tabs 02/21/23 [Rx Last Taken Unknown] Allergy/AdvReac Type Severity Reaction Status Date / Time pantoprazole Allergy Rash Verified 02/21/23 12:50 hydrocodone bitartrate AdvReac Other Verified 02/21/23 12:50 [From Vicodin] metronidazole AdvReac nausea Verified 02/21/23 12:50 Family History Father Cancer Surgical History History of bladder surgery History of coronary artery stent placement (12/07/12) History of esophagogastroduodenoscopy (EGD) History of excision of pilonidal cyst History of hysterectomy History of laparoscopic appendectomy History of laparoscopic cholecystectomy History of left heart catheterization (06/2018) History of tubal ligation historybladder surgery Hx of cataract extraction Social History Smoking Status: Former smoker alcohol intake: never substance use type: does not use caffeine: Yes what type of physical activity do you participate in: none frequency: does not exercise seatbelt use: always ROS ROS ED Eyes Eyes: Reports none ENT ENT ED: Denies ear pain, rhinorrhea or sore throat Cardiovascular Cardiovascular: Reports as per HPI; Denies orthopnea or paroxysmal nocturnal dyspnea Respiratory/Chest Respiratory/Chest: Reports dyspnea; Denies cough, dyspnea on exertion, orthopnea or paroxysmal nocturnal dyspnea Gastrointestinal Gastrointestinal: Denies abdominal pain, constipation, diarrhea, melena, nausea or vomiting Genitourinary Genitourinary ED: Denies dysuria, hematuria or urinary frequency Musculoskeletal Musculoskeletal: Denies arthralgias, back pain, myalgias or neck pain Integumentary Denies abscess, Abrasions or rash Neurologic Neurologic: Denies headache(s) or paresthesias Psychiatric Psychiatric: Denies anxiety or depression Endocrine Endocrinology: Denies cold intolerance or heat intolerance Hematologic/Lymphatic Hematologic/Lymphatic: Denies easy bleeding or easy bruising Allergic/Immunologic Allergic/Immunologic ED: Denies mouth swelling or tongue swelling EXAM Physical Exam Const Vital Signs: 02/21/23 12:48 02/21/23 13:16 02/21/23 13:23 Temperature 97 F L Temperature Source Temporal Pulse Rate 66 Respiratory Rate 18 Respiratory Effort Normal Non-Labored Blood Pressure 159/49 H Blood Pressure Mean 85 Pulse Ox 94 Oxygen Delivery Method Room Air Room Air Positive well nourished and well developed General Appearance ED: well developed and NAD; Negative for pallor HEENT Reports TM's clear and moist mucous membranes normocephalic and atraumatic Tympanic Membrane ED: Yes TM's clear Eyes PERRL and EOMs intact bilaterally General Eye ED: Negative for pale conjunctiva or scleral icterus Neck no lymphadenopathy, supple and no JVD Chest Wall inspection of chest normal and palpation of chest normal Resp normal respiratory effort and clear to auscultation bilaterally Cardio regular rate, regular rhythm, S1 normal heart sound, S2 normal heart sound and no murmurs GI normal to inspection, nondistended, normoactive bowel sounds, soft to palpation, non-tender, non-distended and no masses; Negative for hepatosplenomegaly Back/Spine no CVA tenderness and no thoracic nor lumbar tenderness Extremity normal to inspection General Extremety ED: Negative for pulses abnormal or tenderness General Extremity: Negative for pulses abnormal Neuro oriented x3, CN's II-XII intact bilaterally, no sensory deficits noted and gait normal Sensorium / Orientation: awake and alert Psych mental status grossly normal Skin no rashes or lesions noted and no wounds General Skin Exam: Negative for jaundice or pallor Heart Score History: Slightly/Non-Suspicious ECG: Normal Age: >/= 65 years Risk Factors: >/= 3 Risk Factors or History of CAD Score: 4 MDM MDM MDM Narrative Medical decision making narrative: Patient with atypical chest discomfort. This may represent Zent cardiac ischemia due to lesion in RCA. Also need to rule out GI etiology. Her work-up included an EKG, chest x-ray and appropriate blood work. History and physical exam is not consistent with biliary disease. History & Record Review Discussion w/independent historian: Patient and Significant other Additional record(s) reviewed:: Prior inpatient record (Patient did have a cardiac catheterization with placement of 2 stents at outside facility.), Prior outpatient record, Prior ED visit and Prior labs Lab Data Attestation: I reviewed the patient's lab results. Lab results narrative: CBC is normal. Basic metabolic panel reveals mild hypokalemia and mild elevation of creatinine, 1.17 with a GFR of 47. Glucose is elevated 188 with a normal CO2 and anion gap. First troponin is normal at 3. Labs: Laboratory Results - last 24 hr 02/21/23 02/21/23 13:21 13:21 WBC 6.1 RBC 4.40 Hgb 13.7 Hct 41.7 MCV 94.8 MCH 31.1 MCHC 32.9 RDW Std Deviation 50.1 H RDW Coeff of Daphnie 14.5 Plt Count 178 MPV 10.5 Immature Gran % (Auto) 0.300 Neut % (Auto) 64.2 Lymph % (Auto) 27.5 Bradford % (Auto) 6.5 Eos % (Auto) 0.8 Baso % (Auto) 0.7 Absolute Neuts (auto) 3.9 Absolute Lymphs (auto) 1.68 Nucleated RBC % 0 Sodium 138 Potassium 3.2 L Chloride 102 Carbon Dioxide 30.0 Anion Gap 6 BUN 30 H Creatinine 1.17 H Estim Creat Clear Calc 28.94 Est GFR (MDRD) Af Amer 57 L Est GFR (MDRD) Non-Af 47 L BUN/Creatinine Ratio 25.6 H Glucose 188 H Calcium 9.2 Troponin I High Sens 3 Radiography Diagnostic Testing: Clinical Impression(s) from Imaging Studies Chest X-Ray 02/21/23 13:25 IMPRESSION: Hyperinflation. The lungs are clear. Electronically Signed: Ameya Singh MD at 13:43 EDT , EKG Initial EKG: Attestation: I personally reviewed and interpreted this EKG as follows: Interpretation: Sinus Rhythm (Rate is 66. There is premature ventricular beats noted. MS interval is 122 ms. Cures duration 78 ms. QT duration 4 to 22 ms. [place] is normal. The only abnormality is the PVCs and possible nonspecific ST changes noted in lead I and II.) Treatment and Re-Evaluation :: Was reassessed after GI cocktail. Patient did have improvement. Suspect this is due to GERD especially with a normal troponin. She does have an appointment see Dr. Prince Valentino March of this year. Will change her medicine from H2 daniele to up. Cannot take Protonix because of allergic reaction. Discharge Plan Triage Chief Complaint: Chest Pain ED Provider: Ta Berg Dx/Rx/DC Orders Clinical Impression: Chest pain due to GERD, Secondary pulmonary arterial hypertension, Celiac artery stenosis, Essential (primary) hypertension, Bilateral carotid artery stenosis, History of coronary artery stent placement, HLD (hyperlipidemia) Instructions: GERD Lifestyle Changes, ED GERD (Adult) Prescriptions: New omeprazole 40 mg capsule,delayed release(DR/EC) 40 mg PO DAILY Qty: 30 2RF sucralfate 1 gram tablet 1 g PO BID Qty: 30 1RF No Action isosorbide mononitrate 60 mg tablet extended release 24 hr 60 mg PO DAILY Qty: 90 3RF olopatadine [Pataday] 0.2 % drops 1 drp OPHTHALMIC DAILY PreserVision AREDS-2 [id number] kr-[id number]-pu-mg capsule 1 tab PO BID Rx Instructions: administer with meals famotidine 20 mg tablet 20 mg PO BID metoprolol succinate 50 mg tablet extended release 24 hr 25 mg PO BID diltiazem HCl 120 mg capsule,extended release 24hr 120 mg PO BID melatonin 5 mg capsule 5 mg PO QHS PRN (Reason: Sleep) Systane Balance 0.6 % drops 1 drp ophthalmic (eye) DAILY PRN (Reason: Dry Eyes) azithromycin 250 mg tablet 250 mg PO DAILY furosemide 20 mg tablet 20 mg PO DAILY losartan 100 mg tablet 100 mg PO DAILY clonidine HCl 0.1 mg tablet 0.1 mg PO .COMPLEX Rx Instructions: 0.1 mg orally twice a day for SBP >160.; atorvastatin 40 MG tablet 40 mg PO QHS aspirin 81 MG tablet 81 mg PO DAILY@0800 clopidogrel 75 MG tablet 75 mg PO DAILY oxycodone-acetaminophen [Endocet] 5-325 mg tablet 1 tab PO Q6H PRN (Reason: pain) 3 Days Qty: 12 0RF ondansetron 4 mg tablet,disintegrating 4 mg PO Q8H PRN PRN (Reason: Nausea) Qty: 14 0RF nitroglycerin 0.4 mg tablet, sublingual 0.4 mg SUBLINGUAL Q5-15M PRN (Reason: chest pain) Qty: 25 3RF Rx Instructions: until response; do not exceed 3 doses per episode Primary Care Provider: Demetrice Sung Referrals: Demetrice Sung MD [Primary Care Provider] - Prince Valentino MD [Non-Staff] - Keep Lisandro appointment Activity Restrictions/Additional Instructions: Discontinue taking Pepcid, famotidine. Disposition Disposition: Home, Self Care
[2023-02-21 13:48] LABS: Anion Gap 6 (5-15); BUN 30 mg/dL (7-18); BUN/Creat Ratio 25.6 RATIO (10-20); Calcium,Total 9.2 mg/dL (8.5-10.1); Chloride 102 mmol/L (98-107); Creatinine, Serum 1.17 mg/dL (0.55-1.02); EST Glomerular Filtration Rate 47 mL/min (>60); Est Glom Filt Rate - Afr Amer 57 mL/min (>60); Estimated Creatinine Clearance 28.94 ml/min; Glucose 188 mg/dL (74-106); Potassium 3.2 mmol/L (3.5-5.1); Sodium Level 138 mmol/L (136-145); Troponin-I HS (w/2H Reflex) 3 pg/mL (3.0-54.0)
[2023-02-21 14:00] VITALS: RESP 14
[2023-02-21 15:00] VITALS: RESP 18
[2023-02-21 15:26] LABS: Reflex Troponin-HS? (from REC) Y
[2023-02-21] MEDS: Mag Hydrox/Al Hydrox/Simeth 30 ML UDC PO (15:45)
[2023-02-21 16:00] VITALS: BP 148/55
[2023-02-21 16:11] LABS: Troponin-I HS < 3 pg/mL (3.0-54.0)
== END 2023-02-21 16:32 | disposition home or self-care (01) ==
PROVIDERS: Emergency Provider Emergency Medicine; PCP Internal Medicine; Referring Provider Emergency Medicine; Visit Provider Emergency Medicine
DX: K21.9 Gastro-esophageal reflux disease without esophagitis (principal); I77.1 Stricture of artery; E11.9 Type 2 diabetes mellitus without complications; I25.10 Atherosclerotic heart disease of native coronary artery without angina pectoris; Z95.5 Presence of coronary angioplasty implant and graft; I10 Essential (primary) hypertension; E78.5 Hyperlipidemia, unspecified; Z87.891 Personal history of nicotine dependence; I65.23 Occlusion and stenosis of bilateral carotid arteries
CPT/HCPCS: 71045; 80048; 84484; 85025; 93005; 99284; A4216

== ENCOUNTER → 2023-03-05 | Outpatient (CLI) | payer MEDICARE, SELFPAY ==
--- NOTE | 2023-03-05 13:47 | CT_ITS ---
STUDY: CT ABDOMEN AND PELVIS WITHOUT CONTRAST REASON FOR EXAM: Female, 82 years old. URETERL CALCULUS. Low back pain. Dysuria. RADIATION DOSAGE (If Supplied By Facility): CTDIvol = ( 6.20 ) mGy, DLP = ( 283.14 ) mGycm TECHNIQUE: Transaxial images were obtained from the dome of the diaphragm to the symphysis pubis without oral contrast, and without intravenous contrast. Sagittal and coronal images were reconstructed. Individualized dose optimization techniques were used for this CT. COMPARISON: Comparison is made with prior study dated January 07, 2023. FINDINGS: Stable mild increased markings at the right lung base suggestive of scarring. Coronary artery calcification. Normal liver. There are surgical clips in the gallbladder fossa consistent with a prior cholecystectomy. Normal spleen. Normal pancreas. Normal bilateral adrenal glands. A tiny calculus is seen in the posterior calyx of the upper right kidney. Stable left renal parapelvic cysts. Normal visualized stomach. Normal small intestine. There are multiple colonic diverticula consistent with diverticulosis. The patient is status post appendectomy. There is diffuse atherosclerotic calcification of the abdominal aorta, without a demonstrated aneurysm. Normal inferior vena cava. Normal retroperitoneum. Normal urinary bladder. There is absence of the uterus consistent with a prior hysterectomy. Normal abdominal wall. There are diffuse degenerative changes of the visualized lumbar spine. CT/Abdomen/Pelvis without Cont IMPRESSION: Tiny calculus in the posterior calyx of the upper pole of the right kidney. Stable left parapelvic renal cysts. Electronically Signed: Ameya Singh MD at 15:31 EDT ,
== END | disposition home or self-care (01) ==
PROVIDERS: PCP Internal Medicine; Referring Provider Urology; Visit Provider Urology
DX: N20.1 Calculus of ureter (principal)
CPT/HCPCS: 74176

== ENCOUNTER → 2023-10-31 | Outpatient (CLI) | payer MEDICARE, SELFPAY ==
--- NOTE | 2023-10-31 09:44 | CDU_ITS ---
Reason For Study: Carotid Stenosis Rt. Velocities/BP Lt. Velocities/BP Prox CCA 90/12 cm/sec. Prox CCA 66/18 cm/sec. Mid CCA 98/18 cm/sec. Mid CCA 64/19 cm/sec. Dist CCA 90/18 cm/sec. Dist CCA 71/18 cm/sec. Prox ICA 129/34 cm/sec. Prox ICA 81/20 cm/sec. Mid ICA 132/31 cm/sec. Mid ICA 86/22 cm/sec. Dist ICA 93/18 cm/sec. Dist ICA 175/32 cm/sec. Rt. ICA/CCA = 1.1. Lt. ICA/CCA = 2.73. Prox ECA 190/8 cm/sec. Prox ECA 0 cm/sec. Rt. Vert. 58/8 cm/sec. Lt. Vert. 86/16 cm/sec. Right Extracranial There is heterogeneous, irregular atherosclerotic plaque noted in the right common carotid artery. There is heterogeneous, irregular atherosclerotic plaque noted in the right internal carotid artery. There is heterogeneous, irregular atherosclerotic plaque noted in the right external carotid artery. Antegrade flow is noted in the right vertebral artery. Left Extracranial There is heterogeneous, irregular atherosclerotic plaque noted in the left common carotid artery. There is heterogeneous, smooth atherosclerotic plaque noted in the left internal carotid artery. The left internal carotid artery is very tortuous. There is homogeneous, smooth atherosclerotic plaque noted in the left external carotid artery. 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 Antegrade flow is noted in the left vertebral artery. Procedure Carotid Duplex [id number]. This is a Carotid Duplex examination using B-mode, color flow and specral Doppler. Exam performed in department. VL/Carotid Duplex Ultrasound Interpretation Summary Irregular plaque with shadowing at the proximal right internal carotid artery w ith 50 to 69% stenosis Less than 50% stenosis right external carotid artery Smooth plaque noted within the left internal carotid artery and tortuosity note d with less than 50% stenosis in the proximal internal carotid artery. Velocities slightly elevated within the distal left internal carotid artery without focal plaque in that area. Occlusion left external carotid artery Patent antegrade vertebral arteries bilaterally No change from the right carotid system from September 30, 2022 with new occlusio n of the left external carotid artery from that previously when retrograde flow had been iden tified. Ordering Physician: Ok Swan Referring Physician: Demetrice Sung Performed By: Stephanie Yuan, OLIVIA, RVT
--- OUTSIDE RECORDS SUMMARY | 2023-10-31 10:19 | XMS RPT_ITS | CCD ---
Author Name Unknown Address [address] [place] [address] Organization [facility] Care Team Providers Care Loom Starter Name Role Phone Jihan KIM, Cindy Thomas Unavailable Unavailable MARLA ROWLAND Unavailable Unavailable MIMA GRUBER Unavailable Unavailable LATOUF, BUTROS Unavailable Unavailable LATOUF, BUTROS Unavailable Unavailable CHINTAN MEADOWS Unavailable Unavailable ALHATEM, MIRZA Unavailable Unavailable KAMEL, SAMEH S. Unavailable Unavailable Latmarandaf Anita MAGANA Primary Care Provider Pineda MAGANA, Anita Primary Care Provider Pineda MAGANA, Anita Primary Care Provider COOPERRIDEVE II, TOMMY Phan Attending Unavailabl e COOPERRIDER II, TOMMY Phan Referring Unavailabl e LATOUF, BUTROS Primary Care Unavailable LATOUF, BUTROS Primary Care Unavailable COOPERRIDER II, TOMMY Phan Attending Unavailabl e LATOUF, BUTROS Primary Care Unavailable COOPERRIDER II, TOMMY Phan Attending Unavailabl e LATOUF, BUTROS Primary Care Unavailable COOPERRIDER II, TOMMY Phan Attending Unavailabl e LATOUANITA Arndt MD Consulting Unavailable LATOUFANITA MD Attending Unavailable LATOUANITA Arndt MD Primary Care Unavailable LATOUANITA Arndt MD Admitting Unavailable PROVIDER, UNKNOWN Consulting Unavailable PROVIDER, UNKNOWN Consulting Unavailable PROVIDER, UNKNOWN Consulting Unavailable BUCKMARIWARALIX BRYANT MD Attending Unava ilable BUCKTOWARSINALIX Grey MD Admitting Unava ilable LATANITA WINCHESTER MD Consulting Unavailable BRADENWARSINALIX Grey MD Primary Care Unava ilable PROVIDER, UNKNOWN Consulting Unavailable PROVIDER, UNKNOWN Consulting Unavailable PROVIDER, UNKNOWN Consulting Unavailable ALIX ANDERSON Attending Unavaila ble BUCKTOWARSING, BHAVNISH Admitting Unavaila ble BUCKTOWARSING, BHAVNISH Primary Care Unavaila ble LATANNABELLA, ANITA MAGANA Consulting Unavailable PROVIDER, UNKNOWN Consulting Unavailable PROVIDER, UNKNOWN Consulting Unavailable PROVIDER, UNKNOWN Consulting Unavailable LATOUF, ANITA MAGANA Consulting Unavailable LATOUF, ANITA MAGANA Attending Unavailable LATOUF, ANITA MAGANA Primary Care Unavailable LATOUF, ANITA MAGANA Admitting Unavailable PROVIDER, UNKNOWN Consulting Unavailable PROVIDER, UNKNOWN Consulting Unavailable PROVIDER, UNKNOWN Consulting Unavailable LATOUF, ANITA MAGANA Consulting Unavailable LATOUF, ANITA MAGANA Attending Unavailable LATOUF, ANITA MAGANA Primary Care Unavailable LATOUF, ANITA MAGANA Admitting Unavailable PROVIDER, UNKNOWN Consulting Unavailable PROVIDER, UNKNOWN Consulting Unavailable PROVIDER, UNKNOWN Consulting Unavailable LATOUF, ANITA MAGANA Consulting Unavailable LATOUF, ANITA MAGANA Attending Unavailable LATOUF, ANITA MAGANA Admitting Unavailable LATOUF, ANITA MAGANA Primary Care Unavailable PROVIDER, UNKNOWN Consulting Unavailable PROVIDER, UNKNOWN Consulting Unavailable PROVIDER, UNKNOWN Consulting Unavailable FLETCHER ROUSE DO Attending Unavailable DIDUR, FLETCHER GREEN Admitting Unavailable LATOUF, ANITA MAGANA Consulting Unavailable DIDURFLETCHER DO Primary Care Unavailable LATOUF, ANITA MAGANA Referring Unavailable PROVIDER, UNKNOWN Consulting Unavailable PROVIDER, UNKNOWN Consulting Unavailable PROVIDER, UNKNOWN Consulting Unavailable LATOUF, ANITA MAGANA Consulting Unavailable LATOUF, ANITA MAGANA Primary Care Unavailable LATOUF, ANITA MAGANA Attending Unavailable LATOUF, ANITA MAGANA Admitting Unavailable PROVIDER, UNKNOWN Consulting Unavailable PROVIDER, UNKNOWN Consulting Unavailable PROVIDER, UNKNOWN Consulting Unavailable LATOUF, ANITA MAGANA Consulting Unavailable LATOUF, ANITA MAGANA Attending Unavailable LATOUF, ANITA MAGANA Admitting Unavailable LATOUF, ANITA MAGANA Primary Care Unavailable PROVIDER, UNKNOWN Consulting Unavailable PROVIDER, UNKNOWN Consulting Unavailable PROVIDER, UNKNOWN Consulting Unavailable Allergies Allergy Classification Reported Allergen(s) Allergy Type Date of Onset Reaction(s) Facility (2 sources) acetaminophen / HYDROcodone; Translations: [VICODIN] Drug Allergy 3 [facility] Work Phone: (7 sources) metroNIDAZOLE; Translations: [METRONIDAZOLE] Drug Allergy 7 Unknown [facility] Work Phone: (5 sources) Acetaminophen / HYDROcodone; Translations: [HYDROCODONE-ACETA MINOPHEN] Drug Allergy 5 Unknown [facility] (5 sources) HYDROcodone; Translations: [HYDROCODONE BITARTRATE] Drug Allergy 0 Other: See Comments [facility] (2 sources) pantoprazole; Translations: [PANTOPRAZOLE] Drug Allergy 3 Rash [facility] Medications Current Medications Medication Drug Class(es) Dates Sig (Normalized) Sig (Original) benoxinate hydrochloride 4 mg/ml / fluorescein sodium 2.5 mg/ml ophthalmic solution (1 source) Diagnostic Dye Start: 01-02-2023 End: 01-03-2023 fluorescein-benoxi rachelle 0.25-0.4 % 1 Drop (FLURESS) tropicamide 5 mg/ml ophthalmic solution (1 source) Anticholinergic Start: 05-28-2023 End: 05-28-2023 tropicamide 0.5 % 1 Drop (MYDRIACYL) Completed/Discontinued Medications Medication Drug Class(es) Dates Sig (Normalized) Sig (Original) amLODIPine 5 mg oral tablet (5 sources) Dihydropyridine Calcium Channel Zaynab Start: 11-22-2014 take 2 tablets by mouth once daily amLODIPine (NORVASC) 5 mg tablet Take 10 mg by mouth once daily. 0 11/22/2014 Active Problems Active Problems Problem Classification Problem Date Documented Date Episodic/Chronic Acute cerebrovascular disease (4 sources) Occipital cerebral infarction; Translations: [Cerebral infarction, unspecified] Onset: 1 01-19-2021 Chronic Acute myocardial infarction (1 source) Non-ST elevation (NSTEMI) myocardial infarction; Translations: [Non-ST elevation (NSTEMI) myocardial infarction] Onset: 3 12-22-2012 Chronic Blindness and vision defects (8 sources) Bilateral hyperopia of eyes; Translations: [Hypermetropia, bilateral] Onset: 1 Episodic Calculus of urinary tract (3 sources) Calculus of kidney; Translations: [Calculus of kidney] Onset: 3 Episodic Cataract (1 source) Bilateral pseudophakia; Translations: [Presence of intraocular lens] 05-28-2023 Chronic Chronic kidney disease (3 sources) Chronic kidney disease, stage 4 (severe); Translations: [Chronic kidney disease, stage 4 (severe)] Onset: 3 Chronic Coronary atherosclerosis and other heart disease (7 sources) Atherosclerotic heart disease of [place] coronary artery without angina pectoris; Translations: [Coronary arteriosclerosis] Onset: 3 02-29-2016 Chronic Deficiency and other anemia (1 source) Anemia in chronic kidney disease; Translations: [Anemia in chronic kidney disease] Onset: 3 Chronic Diabetes mellitus with complications (1 source) Type 2 diabetes mellitus with other specified complication; Translations: [Type 2 diabetes mellitus with other specified complication] Onset: 3 Chronic Diabetes mellitus without complication (1 source) Type 2 diabetes mellitus without complications; Translations: [Type 2 diabetes mellitus without complications] Onset: 3 Chronic Disorders of lipid metabolism (2 sources) Hyperlipidemia; Translations: [Hyperlipidemia, unspecified] Onset: 3 12-22-2012 Chronic Essential hypertension (8 sources) Hypertensive disorder; Translations: [Essential hypertension] Onset: 3 12-22-2012 Chronic Genitourinary symptoms and ill-defined conditions (1 source) Frequency of micturition; Translations: [Frequency of micturition] Onset: 3 Episodic Glaucoma (6 sources) Preglaucoma, unspecified, bilateral; Translations: [Preglaucoma, unspecified] Onset: 7 Chronic Inflammation; infection of eye (except that caused by tuberculosis or sexually transmitteddisease) (8 sources) Keratoconjunctivitis sicca; Translations: [Keratoconjunctivitis sicca, not specified as Sjogren's, bilateral] Onset: 7 05-13-2017 Chronic Occlusion or stenosis of precerebral arteries (8 sources) Carotid artery occlusion; Translations: [Occlusion and stenosis of unspecified carotid artery] Onset: 9 04-12-2019 Chronic Other endocrine disorders (1 source) Secondary hyperparathyroidism, not elsewhere classified; Translations: [Secondary hyperparathyroidism, not elsewhere classified] Onset: 3 Chronic Other eye disorders (4 sources) Malposition of eyelashes; Translations: [Trichiasis without entropion right lower eyelid] Episodic Other upper respiratory infections (1 source) Acute upper respiratory infection; Translations: [Acute upper respiratory infection, unspecified] Episodic Retinal detachments; defects; vascular occlusion; and retinopathy (7 sources) Nonexudative age-related macular degeneration; Translations: [Nonexudative age-related macular degeneration, bilateral, early dry stage] Onset: 7 Chronic Unclassified (3 sources) Long-term drug therapy; Translations: [Long-term (current) use of other medications] Onset: 3 Resolved: 5 02-04-2013 Unclassified (2 sources) Placement of stent in coronary artery ; Translations: [Presence of coronary angioplasty implant and graft] Onset: 3 02-29-2016 Past or Other Problems Problem Classification Problem Date Documented Da te Episodic/Chronic Cardiac dysrhythmias (1 source) Palpitations; Translations: [Palpitations] Onset: 08-19-2014 08-19-2014 Episodic Inflammation; infection of eye (except that caused by tuberculosis or sexually transmitteddisease) (4 sources) Allergic conjunctivitis; Translations: [Acute atopic conjunctivitis, unspecified eye] Onset: 05-13-2017 05-13-2017 Episodic Intestinal infection (4 sources) Infection caused by Helicobacter pylori; Translations: [Other specified bacterial intestinal infections] Onset: 12-10-2014 12-10-2014 Episodic Nonspecific chest pain (2 sources) Precordial pain; Translations: [Precordial pain] Onset: 12-21-2012 Resolved: 02-29-2016 12-21-2012 Episodic Other circulatory disease (1 source) Carotid bruit; Translations: [Other specified symptoms and signs involving the circulatory and respiratory systems] Onset: 08-19-2014 08-19-2014 Episodic Other eye disorders (4 sources) Bilateral trichiasis; Translations: [Trichiasis without entropion right eye, unspecified eyelid] Onset: 04-18-2016 09-08-2018 Episodic Residual codes; unclassified (1 source) Localized edema; Translations: [Localized edema] Onset: 11-13-2022 Episodic Unclassified (2 sources) Body mass index (BMI) 26.0-26.9, adult; Translations: [Body mass index (BMI) 25.0-25.9, adult] Onset: 08-29-2015 08-30-2016 Episodic Unclassified (1 source) Percutaneous transluminal coronary angioplasty ; Translations: [Coronary angioplasty status] Onset: 12-22-2012 12-22-2012 Results Test Name Value Interpretation Reference Range Facil ity Vital Signs Date Time Vital Sign Value Performing Clinician Facility 08-31-2022 10:42-0400 Body temperature 98.71 [degF] Lori Athy PA-C Work Phone: [facility] 08-31-2022 10:42-0400 Body weight 63.96 kg Lori Athy PA-C Work Phone: [facility] 08-31-2022 10:42-0400 Diastolic blood pressure 90 mm[Hg] Lori Athy PA-C Work Phone: [facility] 08-31-2022 10:42-0400 Heart rate 90 /min Lori Athy PA-C Work Phone: [facility] 08-31-2022 10:42-0400 Respiratory rate 21 /min Lori Athy PA-C Work Phone: [facility] 08-31-2022 10:42-0400 SaO2% (BldA) [Mass fraction] 95 % Lori Athy PA-C Work Phone: [facility] 08-31-2022 10:42-0400 Systolic blood pressure 180 mm[Hg] Lori Athy PA-C Work Phone: [facility] 07-16-2017 14:54-0400 BP Diastolic 70 mm[Hg] [facility] Work Phone: 07-16-2017 14:54-0400 BP Systolic 142 mm[Hg] [facility] Work Phone: 07-16-2017 14:54-0400 Height 358.14 cm [facility] Work Phone: 07-16-2017 14:54-0400 Pulse (Heart Rate) 90 /min [facility] Work Phone: 07-16-2017 14:54-0400 Respiratory Rate 18 /min [facility] Work Phone: 02-27-2017 10:17-0400 BMI (Body Mass Index) 25.75 kg/m2 [facility] Work Phone: 02-27-2017 10:170400 Weight 61.83 kg [facility] Work Phone: 08-30-2016 13:010400 BSA (Body Surface Area) 1.62 m2 [facility] Work Phone: Encounters Encounter Date Encounter Type Care Provider Facility Start: 10-24-2023 End: 10-24-2023 ambulatory ANITA MAGANA [facility] Start: 10-23-2023 ambulatory ANITA MAGANA [facility] Start: 09-03-2023 End: 09-03-2023 ambulatory TOMMY CORNEJO II Facility:[facility] Start: 08-18-2023 End: 08-18-2023 ambulatory ANITA MAGANA [facility] Start: 06-10-2023 End: 06-10-2023 ambulatory ALIX ANDERSON [facility] Start: 05-28-2023 End: 05-28-2023 ambulatory ANITA SUNG Facility:[facility] Start: 05-28-2023 End: 05-28-2023 Patient encounter procedure Tommy Cornejo OD Work Phone: Optometry Procedures Date Procedure Procedure Detail Performing Clinician Start: 05-28-2023 Correction trichiasi s epilation forceps only Tommy Cornejo OD Work Phone: Start: 05-28-2023 Computerized ophthal andrey imaging retina Tommy Cornejo OD Work Phone: Start: 01-02-2023 Correction trichiasi s epilation forceps only Tommy Cornejo OD Work Phone: Start: 05-20-2022 End: 05-20-2022 Visual field xm uni/bi w/interp extended exam Meron Cornejo OD Work Phone: Start: 07-29-2017 End: 08-04-2017 *Hepatic Function Panel Lizz Dhaliwal Start: 07-29-2017 End: 08-04-2017 Lipid 1996 panel - Serum or Plasma Parminder Tam MD Start: 07-16-2017 End: 07-16-2017 Ecg routine ecg w/least 12 lds w/i&r Savana Goldsmith PA-C Work Phone: Start: 07-16-2017 End: 07-16-2017 Follow Up Appt Other Savana najera PA-C Work Phone: Start: 02-27-2017 End: 07-16-2017 Follow Up Appt 6 months Lizz Dhaliwal Start: 02-27-2017 End: 07-16-2017 MICHELLE Tam MD Start: 01-27-2017 End: 01-27-2017 *Hepatic Function Panel Lizz Dhaliwal Start: 01-27-2017 End: 01-27-2017 Lipid Paula panel - Serum or Plasma Parminder Tam MD Start: 08-30-2016 End: 08-30-2016 ACCREDITATION MANAGER Savana Goldsmith PA-C Work Phone: Start: 08-30-2016 End: 08-30-2016 Follow Up Appt 6 months Savana lopez PA-C Work Phone: Start: 07-29-2016 End: 07-29-2016 *Hepatic Function Panel Lizz Dhaliwal Start: 07-29-2016 End: 07-29-2016 Lipid 1996 panel - Serum or Plasma Parminder Tam MD Start: 02-29-2016 End: 02-29-2016 Follow Up Appt 6 months Lizz Dhaliwal Start: 02-29-2016 End: 02-29-2016 MMLizz Tam MD Start: 02-29-2016 End: 07-29-2016 Natriuretic peptide B [Mass/volume] in Blood Parminder Tam MD Start: 01-23-2016 End: 01-26-2016 *Hepatic Function Panel Lizz Dhaliwal Start: 01-23-2016 End: 01-26-2016 Lipid 1996 panel - Serum or Plasma Parminder Tam MD Start: 08-29-2015 End: 07-29-2016 Carotid duplex Savana Goldsmith PA-C Work Phone: Start: 08-29-2015 End: 08-29-2015 ACCREDITATION MANAGER Savana Goldsmith PA-C Work Phone: Start: 08-29-2015 End: 08-29-2015 Follow Up Appt 6 months Savana lopez PA-C Work Phone: Start: 07-19-2015 End: 07-25-2015 *Hepatic Function Panel Lizz Dhaliwal Start: 07-19-2015 End: 07-25-2015 Lipid 1996 panel - Serum or Plasma Parminder Tam MD Start: 02-28-2015 End: 02-28-2015 Follow Up Appt 6 months Lizz Dhaliwal Start: 02-28-2015 End: 02-28-2015 MMM Parminder Tam MD Start: 12-22-2014 End: 01-16-2015 *Hepatic Function Panel Lizz Dhaliwal Start: 12-22-2014 End: 01-16-2015 Lipid 1996 panel - Serum or Plasma Parminder Tam MD Start: 08-19-2014 End: 08-19-2014 *BMP Savana Goldsmith PA-C Work Phone: Start: 08-19-2014 End: 09-07-2014 Carotid duplex Savana Goldsmith PA-C Work Phone: Start: 08-19-2014 End: 08-19-2014 ACCREDITATION MANAGER Savana Goldsmith PA-C Work Phone: Start: 08-19-2014 End: 08-19-2014 Ecg routine ecg w/least 12 lds w/i&r Savana Goldsmith PA-C Work Phone: Start: 08-19-2014 End: 08-19-2014 Follow Up Appt 6 months Savana lopez PA-C Work Phone: Start: 08-19-2014 End: 09-01-2014 Magnesium [Mass/volume] in Serum or Plasma Savana Goldsmith PA-C Work Phone: Start: 06-21-2014 End: 06-21-2014 *Hepatic Function Panel Savana lopez PA-C Work Phone: Start: 06-21-2014 End: 06-21-2014 Lipid 1996 panel - Serum or Plasma Savana Goldsmith PA-C Work Phone: Start: 03-07-2014 End: 08-05-2014 Cardiovascular stress test using treadmill Parminder Tam MD Start: 02-22-2014 End: 02-22-2014 Follow Up Appt 6 months Lizz Dhaliwal Start: 02-22-2014 End: 02-22-2014 MMM Parminder Tam MD Start: 12-25-2013 End: 01-15-2014 *Hepatic Function Panel Savana lopez PA-C Work Phone: Start: 12-25-2013 End: 01-15-2014 Lipid 1996 panel - Serum or Plasma Savana Goldsmith PA-C Work Phone: Start: 07-26-2013 End: 07-26-2013 ACCREDITATION MANAGER Savana Goldsmith PA-C Work Phone: Start: 07-26-2013 End: 07-26-2013 Follow Up Appt 6 months Savana lopez PA-C Work Phone: Start: 03-09-2013 End: 03-09-2013 Ecg routine ecg w/least 12 lds w/i&r Savana Goldsmith PA-C Work Phone: Start: 03-09-2013 End: 03-09-2013 Follow Up Appt Other Savana najera PA-C Work Phone: Start: 03-09-2013 End: 03-09-2013 Troponin I.cardiac [Mass/volume] in Serum or Plasma Savana Goldsmith PA-C Work Phone: Start: 01-20-2013 End: 02-04-2013 *Hepatic Function Panel Lizz Dhaliwal Start: 01-20-2013 End: 04-14-2013 Cardiac Rehab Parminder Tam MD Start: 01-20-2013 End: 01-20-2013 Follow Up Appt 6 months Lizz Dhaliwal Start: 01-20-2013 End: 02-04-2013 Lipid 1996 panel - Serum or Plasma Parminder Tam MD Start: 01-20-2013 End: 01-20-2013 MMM Parminder Tam MD Start: 12-24-2012 End: 01-20-2013 Left Heart Cath Parminder Tam MD Plan of Treatment Date Care Activity Detail Author Start: 05-28-2024 Hepatitis C antibody, confirmatory test DILATED RETINAL EXAM [facility] Start: 06-27-2023 Influenza vaccination INFLUENZA (#1) [facility] Start: 03-12-2023 Hemoglobin A1c/Hemoglobin.total in Blood HBA1C [facility] Start: 12-01-2022 COVID-19 VACCINE (6 - Pfizer series) COVID-19 VACCINE (6 - Pfizer series) [facility] Start: 11-26-2022 Hepatitis C antibody, confirmatory test DILATED RETINAL EXAM [facility] Start: 10-27-2022 ADVANCE DIRECTIVE DISCUSSION ADVANCE DIRECTIVE DISCUSSION [facility] Start: 10-27-2022 DEPRESSION ASSESSMENT DEPRESSION ASSESSMENT [facility] Start: 09-06-2022 Hemoglobin A1c/Hemoglobin.total in Blood HBA1C [facility] Start: 08-31-2022 End: 09-14-2022 Influenza virus A and B RNA and SARS-CoV-2 (COVID-19) N gene panel - Respiratory specimen by LISSETTE with probe detection COVID WITH FLUA+B, ROUTINE Microbiology Routine Acute URI Expected: 08/31/2022, Expires: 09/14/2022 [facility] Work Phone: Payers Date Payer Category Payer Unknown [employer] BL[employer]IELD [employer] O [id number] 2021-Present [phone] [address] O [id number] 2021 Unknown [employer]M [employer] S [employer] BL[employer]IELD [employer] MED[employer] O [id number] 2021-Present [phone] [address] [place] [id number] O [id number] 2021 Unknown [id number] 2018 Medicare [id number] 1942 Unknown [id number] 1942 Unknown [id number] 1942 Unknown [id number] 1942 Unknown [id number] 1942 Unknown [id number] 1942 Unknown [id number] 1942 Unknown [id number] 1942 Unknown [id number] 1942 Unknown [id number] 1942 Unknown [id number] Social History Date Type Detail Facility Start: 11-22-2014 End: 08-31-2022 Tobacco smoking status NHIS Ex-smoker [facility] End: 10-27-1988 History of tobacco use Current smoker [facility] Start: 11-22-2014 End: 08-31-2022 Tobacco use and exposure Smokeless tobacco non-user [facility] Start: 05-20-2022 End: 05-28-2023 Alcohol intake Current non-drinker of alcohol (finding) [facility] Start: 1940 Sex Assigned At Not on file [facility] Start: 05-10-2022 End: 05-20-2022 Exposure to SARS-CoV-2 (event) Not sure [facility] End: 10-27-1988 History of tobacco use Cigarette Smoker [facility] Start: 03-13-2023 End: 05-28-2023 History of Social function [facility] Start: 03-13-2023 End: 05-28-2023 Tobacco use panel [facility] National Score (1-10 0), lower number is lower risk 72 [facility] Clinical Notes 01-19-2021 to 09-03-2023 Patient InstructionsCoTommy stark II, OD - 05/28/2023 1:18 PM EDTPatient InstructionsJon Sylvester Clemente TOLENTINO, OD - 01/02/2023 12:28 PM Brianna Martinez PA-C - 08/31/2022 1:33 PM EDT Note Date & Type Note Facility 09-03-2023 Note HNO ID: [id number] Author: Tommy Cornejo II, OD Service: ? 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 Monitor. 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 I have confirmed and edited as necessary the relevant ophthalmic history, ROS, and the neuro exam findings as obtained by others. I have seen and examined Kimberly Lee. I have discussed the case and the management of this patient's care with the Resident/Fellow, if applicable. I also have reviewed and agree with the assessment and plan as stated above and agree with all of its relevant components. Tommy Cornejo II, OD [facility] 05-28-2023 Note HNO ID: [id number] Author: Tommy Cornejo II, OD Service: ? 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 Monitor for recurrence. 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 Stable nerve appearance and Intraocular pressures today. Monitor yearly. No treatment indicated at this time. Discussed need for continued close observation to minimize chance of future vision loss. Z96.1 Pseudophakia of both eyes Comment: Posterior chamber intraocular lenses are well positioned and clear. H52.03 Hyperopia, bilateral H52.223 Regular astigmatism, bilateral Comment: Small shift in glasses power demonstrated to patient. Update as desired. I have confirmed and edited as necessary the relevant ophthalmic history, ROS, and the neuro exam findings as obtained by others. I have seen and examined Kimberly Lee. I have discussed the case and the management of this patient's care with the Resident/Fellow, if applicable. I also have reviewed and agree with the assessment and plan as stated above and agree with all of its relevant components. 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 Monitor for recurrence. 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 Stable nerve appearance and Intraocular pressures today. Monitor yearly. No treatment indicated at this time. Discussed need for continued close observation to minimize chance of future vision loss. Z96.1 Pseudophakia of both eyes Comment: Posterior chamber intraocular lenses are well positioned and clear. H52.03 Hyperopia, bilateral H52.223 Regular astigmatism, bilateral Comment: Small shift in glasses power demonstrated to patient. Update as desired. I have confirmed and edited as necessary the relevant ophthalmic history, ROS, and the neuro exam findings as obtained by others. I have seen and examined Kimberly Lee. I have discussed the case and the management of this patient's care with the Resident/Fellow, if applicable. I also have reviewed and agree with the assessment and plan as stated above and agree with all of its relevant components. 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 Monitor for recurrence. 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 Stable nerve appearance and Intraocular pressures today. Monitor yearly. No treatment indicated at this time. Discussed need for continued close observation to minimize chance of future vision loss. Z96.1 Pseudophakia of both eyes Comment: Posterior chamber intraocular lenses are well positioned and clear. H52.03 Hyperopia, bilateral H52.223 Regular astigmatism, bilateral Comment: Small shift in glasses power demonstrated to patient. Update as desired. I have confirmed and edited as necessary the relevant ophthalmic history, ROS, and the neuro exam findings as obtained by others. I have seen and examined Kimberly Lee. I have discussed the case and the management of this patient's care with the Resident/Fellow, if applicable. I also have reviewed and agree with the assessment and plan as stated above and agree with all of its relevant components. Tommy Cornejo II, OD documented in this encounter [facility] 03-13-2023 Note HNO ID: [id number] Author: Tommy Cornejo II, OD Service: ? 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 Recheck as needed. H10.13 Allergic conjunctivitis, bilateral Comment: Recommend Pataday 1 gt both eyes once a day x 3 weeks along with daily use of artificial tears. Recheck as needed. I have confirmed and edited as necessary the relevant ophthalmic history, ROS, and the neuro exam findings as obtained by others. I have seen and examined Kimberly Lee. I have discussed the case and the management of this patient's care with the Resident/Fellow, if applicable. I also have reviewed and agree with the assessment and plan as stated above and agree with all of its relevant components. Tommy Cornejo II, OD [facility] 01-02-2023 Note HNO ID: [id number] Author: Tommy Cornejo II, OD Service: ? 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 Continue daily artificial tears. Recheck as needed. I have confirmed and edited as necessary the relevant ophthalmic history, ROS, and the neuro exam findings as obtained by others. I have seen and examined Kimberly Lee. I have discussed the case and the management of this patient's care with the Resident/Fellow, if applicable. I also have reviewed and agree with the assessment and plan as stated above and agree with all of its relevant components. 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 Continue daily artificial tears. Recheck as needed. I have confirmed and edited as necessary the relevant ophthalmic history, ROS, and the neuro exam findings as obtained by others. I have seen and examined Kimberly Lee. I have discussed the case and the management of this patient's care with the Resident/Fellow, if applicable. I also have reviewed and agree with the assessment and plan as stated above and agree with all of its relevant components. 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 Continue daily artificial tears. Recheck as needed. I have confirmed and edited as necessary the relevant ophthalmic history, ROS, and the neuro exam findings as obtained by others. I have seen and examined Kimberly Lee. I have discussed the case and the management of this patient's care with the Resident/Fellow, if applicable. I also have reviewed and agree with the assessment and plan as stated above and agree with all of its relevant components. Tommy Cornejo II, MARKUS documented in this encounter [facility] 08-31-2022 History of Present illness Narrative This note was created using vivioter. Subjective Kimberly Lee is a 82 year old female. HPI Patient presents with a chief complaint of cough and congestion for a week. She states she called her primary doctor told her to try Mucinex DM. She states that actually has been helping the past couple days but she was still coughing so she came in. No home COVID test done. She denies history of COVID. No chest pain or shortness of breath. Sometimes her cough is productive. Denies a fever. No shortness of breath. Denies history of asthma. Former smoker, quit in 1988. Review of Systems Constitutional: Negative. HENT: Positive for congestion. Negative for ear pain, sinus pressure and sinus pain. Respiratory: Positive for cough. Negative for shortness of breath. Cardiovascular: Negative. Gastrointestinal: Negative. Genitourinary: Negative. Musculoskeletal: Negative. All other systems reviewed and are negative. PAST MEDICAL HISTORY Diagnosis Date Bone spur CAD (coronary artery disease) Diabetes (HCC) Epigastric abdominal pain 12/10/2016 GERD (gastroesophageal reflux disease) Heart attack (HCC) Helicobacter pylori infection 12/10/2016 Suspected helicobacter pylori HTN (hypertension) Hypercholesteremia Occlusion and stenosis of carotid artery without mention of cerebral infarction Unspecified gastritis and gastroduodenitis without mention of hemorrhage Current Outpatient Medications Medication Sig Dispense Refill MELATONIN ORAL Take by mouth. dilTIAZem CD (CARDIZEM CD, CARTIA XT) 120 mg 24 hr capsule olopatadine HCl (PATADAY OPHTHALMIC) Use in eyes. nystatin (MYCOSTATIN) powder Nystatin Nystatin Active TOPICAL November 10, 2019 2:57pm 11-10-2019 [facility] ([id number]) famotidine (PEPCID) 20 mg tablet vit A/vit C/vit E/zinc/copper (PRESERVISION AREDS ORAL) Take by mouth. cetirizine HCl (ZYRTEC) 10 mg chewable tablet Take 10 mg by mouth once daily. metoprolol succinate ER (TOPROL XL) 25 mg 24 hr tablet Take 25 mg by mouth twice daily. lisinopril (ZESTRIL, PRINIVIL) 10 mg tablet Take 10 mg by mouth once daily. BENEFIBER, GUAR GUM, ORAL Take by mouth. atorvastatin (LIPITOR) 40 mg tablet Take 1 tablet by mouth once daily. 0 clopidogrel (PLAVIX) 75 mg tablet Take 1 tablet by mouth once daily. 0 aspirin 81 mg chewable tablet Take 1 tablet by mouth once daily. 0 isosorbide dinitrate (ISORDIL, SORBITRATE) 30 mg tablet Take 1 tablet by mouth four times daily. 0 hydrochlorothiazide (HYDRODIURIL, ESIDRIX) 25 mg tablet Take 12.5 mg by mouth once daily. 0 Lactobacillus acidophilus (ACIDOPHILUS) cap Take 2 capsules by mouth three times daily. (Patient not taking: Reported on 05/20/2022 ) propylene glycol (SYSTANE COMPLETE OPHTHALMIC) Use in eyes. propylene glycol/peg 400 (BLINK TEARS LUBRICATING) Eye Drops Use in both eyes. (Patient not taking: Reported on 11/26/2021 ) pantoprazole DR (PROTONIX) 40 mg tablet Take 40 mg by mouth once daily. (Patient not taking: Reported on 05/20/2022 ) clonazepam (KLONOPIN ORAL) Take by mouth. (Patient not taking: Reported on 05/20/2022 ) [place]-3 Fatty Acids-Vitamin E (FISH OIL) 1,000 mg cap Take 1 capsule by mouth. (Patient not taking: Reported on 05/20/2022 ) amLODIPine (NORVASC) 5 mg tablet Take 10 mg by mouth once daily. (Patient not taking: Reported on 05/20/2022 ) 0 No current facility-administered medications for this visit. PAST SURGICAL HISTORY Procedure Laterality Date APPENDECTOMY CHOLECYSTECTOMY 01/2017 EGD TRANSORAL BIOPSY SINGLE/MULTIPLE 12/10/2016 HEART SURGERY HX HYSTERECTOMY HX PAST SURGICAL HISTORY OF right knee cartilage tear repair REMV CATARACT EXTRACAP,INSERT LENS Right 04/05/2021 SLING OPER STRES INCONTINENCE STENT PLACEMENT 2012 cardiac stent TUBAL LIGATION HX XCAPSL CTRC RMVL INSJ IO LENS PROSTH W/O ECP Left 04/22/2019 Cataract Extraction with PC IOL FAMILY HISTORY Problem Relation Age of Onset Cancer Father Glaucoma No Family History Macular Degen No Family History Detached Retina No Family History Blindness No Family History Social History Tobacco Use Smoking status: Former Types: Cigarettes Quit date: 10/27/1988 Years since quittin.8 Smokeless tobacco: Never Vaping Use Vaping Use: Never used Substance Use Topics Alcohol use: No Drug use: No Objective BP 180/90 Pulse 90 Temp 37.1 C (98.7 F) Resp 21 Wt 64 kg (141 lb) SpO2 95% Physical Exam Vitals reviewed. Constitutional: General: She is not in acute distress. Appearance: Normal appearance. She is not ill-appearing. HENT: Head: Normocephalic and atraumatic. Right Ear: Tympanic membrane, ear canal and external ear normal. Left Ear: Tympanic membrane, ear canal and external ear normal. Nose: Congestion present. Mouth/Throat: Mouth: Mucous membranes are moist. Pharynx: Oropharynx is clear. Cardiovascular: Rate and Rhythm: Normal rate and regular rhythm. Heart sounds: Normal heart sounds. Pulmonary: Effort: Pulmonary effort is normal. No respiratory distress. Breath sounds: Rhonchi present. No wheezing. Musculoskeletal: Cervical back: Neck supple. Lymphadenopathy: Cervical: No cervical adenopathy. Skin: General: Skin is warm and dry. Neurological: General: No focal deficit present. Mental Status: She is alert. Assessment and Plan ASSESSMENT/PLAN: 1. Acute URI - ICD9: 465.9, ICD10: J06.9 - Discussed viral etiology and rationale for treatment. - Symptomatic treatment with prn analgesia - Supportive care with fluids and rest - Follow up in 3-5 days if symptoms persist or sooner if worsening of symptoms -Chest x-ray clear here. Her symptoms seem to be improving the past couple days. Recommended continuing the Mucinex DM. COVID test pending. Red flags to be seen in the ER discussed. Patient agreeable. - XR CHEST 2V FRONTAL/LAT - COVID WITH FLUA+B, ROUTINE Lori Martinez PA-C documented in this encounter [facility] 05-20-2022 Miscellaneous Notes Addended by: MERON CORNEJO on: 05/20/2022 10:52 AM Modules accepted: Orders documented in this encounter [facility] 05-20-2022 Instructions Meron Cornejo, OD - 05/20/2022 10:45 AM EDT ASSESSMENT/PLAN: 1. Glaucoma suspect of both eyes - ICD9: 365.00, ICD10: H40.003 (primary diagnosis) Continue to monitor, stable at this time. 2. Nonexudative age-related macular degeneration, bilateral, early dry stage - ICD9: 362.51, ICD10: H35.3131 Continue to monitor. 3. 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 Hyperopia, bilateral - ICD9: 367.0, ICD10: H52.03 5. Regular astigmatism, bilateral - ICD9: 367.21, ICD10: H52.223 Glasses can be ordered as desired Return in one year, sooner if she has issues. documented in this encounter [facility] 05-20-2022 History of Present illness Narrative ASSESSMENT/PLAN: 1. Glaucoma suspect of both eyes - ICD9: 365.00, ICD10: H40.003 (primary diagnosis) Continue to monitor, stable at this time. 2. Nonexudative age-related macular degeneration, bilateral, early dry stage - ICD9: 362.51, ICD10: H35.3131 Continue to monitor. 3. 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 Hyperopia, bilateral - ICD9: 367.0, ICD10: H52.03 5. Regular astigmatism, bilateral - ICD9: 367.21, ICD10: H52.223 Glasses can be ordered as desired Return in one year, sooner if she has issues. Meron Cornejo, OD I have confirmed and edited as necessary the relevant ophthalmic history, ROS, and the neuro exam findings as obtained by others. I have seen and examined this patient. documented in this encounter [facility] 04-05-2021 Note Post Operative Note: Post-Procedure Diagnosis: 1. 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 Cataract Extraction with Intraocular Lens Implant Right Eye Surgeon: Miguel Brito MD Resident/Fellow/Other Anesthesiology Medical Doctor: None Estimated Blood Loss (mL): none Specimen: no Findings: 1. 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 The operative eye was dilated in the preoperative area. The patient was then taken to the operating room where timeout was performed before starting the procedure. Combined anesthesia with intravenous sedation and topical tetracaine eyedrops were instilled into the right eye. The operative eye was prepped and draped in the standard sterile ophthalmic fashion in preparation for ophthalmic surgery. A Adria wire speculum was then inserted between the eyelids of the right eye and the operating microscope was placed over the right eye. A paracentesis incision was made approximately 30 away from the planned surgical incision site with the help of MVR blade. 1% lidocaine MPF with Phenylephrine 1.5% PF was injected into the anterior chamber through the paracentesis incision. A near limbal clear corneal incision was fashioned in the temporal quadrant just outside the vascular arcade and Viscoat was injected into anterior chamber to firm the eye. A bent needle cystotome was used and Utrata forceps were utilized to create a continuous curvilinear capsulorrhexis. BSS was injected beneath the anterior capsule to hydrodissect the nucleus from adjacent cortex and capsule. The residual cortex was then aspirated with irrigation/aspiration handpiece. The posterior capsule was then polished with the help of soft irrigation-aspiration tip. Provisc viscoelastic was then injected into the eye to reform the anterior chamber and to open the capsular bag. The intraocular lens implant was taken from its sterile wrapping, inspected under the surgical microscope and found to be in good condition. The intraocular lens implant 24.0D was injected into the capsule bag. The Provisc was then aspirated from the anterior chamber and from behind the intraocular lens implant. The anterior chamber was inflated with the help of BSS to moderate tension. And the edges of the surgical incision were then hydrated with the help of BSS. Vigamox was then injected into the anterior chamber and into the capsule bag through the paracentesis incision. The surgical wound was then inspected and found to be watertight. The wire speculum and drapes were then removed. Pred Forte eyedrops, Acular eyedrops and Betadine 5% sterile ophthalmic solution were instilled in the conjunctival sac. The patient tolerated the procedure well and was taken to recovery room in stable condition. Signature/Cosignature/Attestation: Note Completion: Attending AttestationI performed the procedure without a resident Electronic Signatures: Miguel Brito) (Signed 05-Apr-2021 13:22) Authored: Post Operative Note, Note Completion Last Updated: 05-Apr-2021 13:22 by Miguel Brito) [facility] 04-05-2021 Note History & Physical R eviewed: I have reviewed the History and Physical dated: 19-Mar-2021 History and Physical reviewed and relevant findings noted. Patient examined to review pertinent physical findings.: No significant changes Home Medications Reviewed: no changes noted Allergies Reviewed: no changes noted ERAS (Enhanced Recovery After Surgery): ERAS Patient: no Consent: COVID-19 Consent: COVID-19 Risk ConsentSurgeon has reviewed fountain risks related to the risk of macrina COVID-19 and if they contract COVID-19 what the risks are. Signatures/Attestation: Note Completion: Attending Provider Inpatient Certification StatementObservation patient/other outpatient visits Electronic Signatures: Miguel Brito) (Signed 05-Apr-2021 12:21) Authored: History & Physical Reviewed, ERAS, Consent, Note Completion Last Updated: 05-Apr-2021 12:21 by Miguel Brito) [facility] documented as of this encounter (statuses as of 05/20/2022) [facility] History of Past illness Narrative* Problem Noted Date Resolved Date Combined forms of age-related cataract, right ey e 01/19/2021 11/26/2021 Status post cataract extract ion and insertion of intraocular lens of left eye 04/23/2019 05/14/2021 Combined forms of age-related cataract of right eye 03/12/2019 11/26/2021 Presbyopia 05/13/2017 05/14/2021 documented as of this encounter (statuses as of 08/31/2022) [facility] History of Past illness Narrative* Problem Noted Date Resolved Date Combined forms of age-related cataract, right ey e 01/19/2021 11/26/2021 Status post cataract extract ion and insertion of intraocular lens of left eye 04/23/2019 05/14/2021 Combined forms of age-related cataract of right eye 03/12/2019 11/26/2021 Presbyopia 05/13/2017 05/14/2021 documented as of this encounter (statuses as of 01/02/2023) [facility] History of Past illness Narrative* Problem Noted Date Diagnosed Date Resolved Date Combined forms of age-relate d cataract, right eye 01/19/2021 11/26/2021 Status post cataract extract ion and insertion of intraocular lens of left eye 04/23/2019 05/14/20 21 Combined forms of age-relate d cataract of right eye 03/12/2019 11/26/2021 Presbyopia 05/13/2017 05/14/2021 documented as of this encounter (statuses as of 05/28/2023) [facility] Glaucoma suspect of both eyes- Primary Preglaucoma, unspecified Nonexudative age-related macular degeneration, bilateral, 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 Hyperopia, bilateral Regular astigmatism, bilateral [facility] Diagnosis Acute URI- Primary Acute upper respiratory infections of unspecified site [facility] Diagnosis 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 [facility] Diagnosis Macular RPE mottling- Primary Other retinal disorders Nonexudative age-related macular degeneration, bilateral, 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, unspecified Pseudophakia of both eyes Lens replaced by other means Hyperopia, bilateral Regular astigmatism, bilateral documented in this encounter [facility] Summary Purpose Family History No Family History Records FoundNo Family History Records FoundNo Family History Records FoundNo Family History Records FoundNo Family History Records FoundNo Family History Records Found Advance Directives No Advanced Directives Records FoundDocuments on File Type Date Recorded Patient Surgeon Chief Expl anation Advance Directive(s) 12/10/2016 11:25 AM Advance Directive(s) 12/05/2016 1:09 PM Medications Administered Section Inactive Administered Medications - up to 3 most recent administrations Medication Order MAR Action Action Date Dose Rate Site fluorescein-proparacaine 1 Drop eye drops (FLUCAINE, FLUORACAINE) 1 Drop, BOTH EYES, ONCE, 1 dose, On Fri05/20/22 at 1100, FOR THE EYE. REFRIGERATE Given 05/20/2022 11:00 AM EDT 1 Drop Active Administered Medications - up to 3 most recent administrations Medication Order MAR Action Action Date Dose Rate Site fluorescein-benoxinate 0.25-0.4 % 1 Drop (FLURESS) 1 Drop, BOTH EYES, DIRECTED, Starting on [place] 01/02/23 at 1230, Until Fri01/03/23 at 0029, Administer for applanation tonometry. In the event of a Fluress shortage, administer [place]-Fluor 1 drop into both eyes as directed for applanation tonometry Given 01/02/2023 12:30 PM EST 1 Drop Active Administered Medications - up to 3 most recent administrations Medication Order MAR Action Action Date Dose Rate Site tropicamide 0.5 % 1 Drop (MYDRIACYL) 1 Drop, BOTH EYES, DIRECTED, Starting on Fri05/28/23 at 1130, Until Fri05/28/23 at 2329, Administer for dilation Given 05/28/2023 11:30 AM EDT 1 Drop Health Concerns Infection Onset Date Last Indicated Resolved Time COVID-19 Rule-Out 08/31/2022 08/31/2022 Additional Source Comments INFORMATION SOURCE (unrecogn ized section and content) DATE CREATED AUTHOR AUTHOR'S ORGANIZ ATION 04/06/2021 [facility] DATE CREATED AUTHOR AUTHOR'S ORGANIZ ATION 04/12/2021 [facility] DATE CREATED AUTHOR AUTHOR'S ORGANIZ ATION 07/29/2021 [facility] DATE CREATED AUTHOR AUTHOR'S ORGANIZ ATION 10/27/2023 [facility] DATE CREATED AUTHOR AUTHOR'S ORGANIZ ATION 10/27/2023 Sarabjit Pratt [facility] Source Comments (unrecognize d section and content) In the event this informatio n is protected by the Federal Confidentiality of Alcohol and Drug Abuse Patient Records regulations: The Federal rules restrict any use of the information to criminally investigate or prosecute any alcohol or drug abuse patient.[facility] the event this information is protected by the Federal Confidentiality of Alcohol and Drug Abuse Patient Records regulations: The Federal rules restrict any use of the information to criminally investigate or prosecute any alcohol or drug abuse patient.[facility] the event this information is protected by the Federal Confidentiality of Alcohol and Drug Abuse Patient Records regulations: The Federal rules restrict any use of the information to criminally investigate or prosecute any alcohol or drug abuse patient.[facility] the event this information is protected by the Federal Confidentiality of Alcohol and Drug Abuse Patient Records regulations: The Federal rules restrict any use of the information to criminally investigate or prosecute any alcohol or drug abuse patient.[facility] Reason for Visit (unrecogniz ed section and content) Reason Comments Covid Test Result Reason Comments Watery Eyes Both Eyes Foreign Body Sensation Reason Comments Glaucoma Suspect Evaluation Macular Degeneration Evaluation Care Teams (unrecognized sec tion and content) Loom Starter Relationship Specialty Start Date End Date Anita Sung MD PCP - General Internal Medicine 09/08/18 Loom Starter Relationship Specialty Start Date End Date Anita Sung MD PCP - General Internal Medicine 09/08/18 Loom Starter Relationship Specialty Start Date End Date Anita Sung MD PCP - General Internal Medicine 09/08/18 FOR RECORDS PERTAINING TO PATIENTS WHO ARE OR HAVE BEEN ENROLLED IN A CHEMICAL DEPENDENCY/SUBSTANCEABUSE PROGRAM, SOME INFORMATION MAY BE OMITTED. This clinical summary was aggregated from multiple sources. Caution should be exercised in using it in the provision of clinical care. This summary normalizes information from multiple sources, and as a consequence, information in this document may materially change the coding, format and clinical context of patient data. In addition, data may be omitted in some cases. CLINICAL DECISIONS SHOULD BE BASED ON THE PRIMARY CLINICAL RECORDS. [facility]. provides no warranty or guarantee of the accuracy or completeness of information in this document.
== END | disposition home or self-care (01) ==
LOC: CVS 09:36
PROVIDERS: PCP Internal Medicine; Referring Provider Surgery; Visit Provider Surgery
DX: I65.23 Occlusion and stenosis of bilateral carotid arteries (principal)
CPT/HCPCS: 93880

== ENCOUNTER 2024-06-23 09:38 | Emergency (ER) | payer MEDICARE, SELFPAY ==
[2024-06-23 09:38] VITALS: PULSE 79; RESP 19; TEMP 36.4; O2SAT 92; BMI 27.3
[2024-06-23 09:44] VITALS: BP 174/67
--- NOTE | 2024-06-23 09:53 | EDS_ITS ---
HPI History of Present Illness Chief Complaint: Chest Pain Informant: patient and family (Granddaughter-Tran) Narrative Narrative: 84-year-old female presenting to the emergency room for evaluation of left chest pain. Patient states she cannot really describe the pain but states that it started shortly after her waking up this morning around 0400 hrs. Patient notes that she has had chronic swelling of the bilateral lower extremities. She tells me that they do not necessarily different than normal. Granddaughter states she seemed to be breathing heavier in the car ride up. Granddaughter also notes that she commented that the pain seemed to radiate into her left back. Patient states nothing seems to make the pain better or worse. She notes a history of coronary artery disease having had 2 stents placed in 2012. She follows with Dr. Isbell with cardiology. Patient does takes Lasix 20 mg a day and chlorthalidone for swelling. She denies history of DVT or PE. She denies history of aortic dissection/aneurysm. She denies any cough or fevers. [facility] Medical History Kidney stones Unstable angina Bilateral carotid artery stenosis GERD (gastroesophageal reflux disease) Essential (primary) hypertension Dysphagia Celiac artery stenosis Acute right hip pain LVH (left ventricular hypertrophy) Renal cysts, acquired, bilateral History of Helicobacter pylori infection Osteoarthritis History of bacterial pneumonia Hemorrhoids Diverticulosis Secondary pulmonary arterial hypertension NSTEMI (non-ST elevated myocardial infarction) Carotid bruit HLD (hyperlipidemia) Atherosclerotic heart disease of [place] coronary artery without angina pectoris Home Medications ?Medication ?Instructions ?Recorded ?Last Taken ?Type aspirin 81 mg tablet,delayed 81 mg PO DAILY@0800 12/27/13 07/13/18 History release atorvastatin 40 mg tablet 40 mg PO QHS 12/27/13 Unknown History clopidogrel 75 mg tablet 75 mg PO DAILY 01/12/17 07/13/18 History isosorbide mononitrate 60 mg 60 mg PO DAILY #90 tabs 08/10/20 Unknown Rx tablet,extended release 24 hr olopatadine 0.2 % eye drops 1 drp ophthalmic (eye) DAILY 08/29/20 Unknown History (Patada) vit C 250 mg-vit E 90 mg-zinc 40 1 tab PO BID 08/29/20 Unknown History mg-copper 1 [id number] capsule (PreserVision AREDS-2) nitroglycerin 0.4 mg sublingual 0.4 mg sublingual Q5-15M PRN chest 09/25/20 Unknown Rx tablet pain #25 tabs metoprolol succinate 50 mg 25 mg PO BID 08/21/21 Unknown History tablet,extended release 24 hr diltiazem HCl 120 mg 120 mg PO BID 09/03/22 Unknown History capsule,extended release 24 hr melatonin 5 mg capsule 5 mg PO QHS PRN Sleep 09/03/22 Unknown History propylene glycol 0.6 % eye drops 1 drp ophthalmic (eye) DAILY PRN 09/03/22 Unknown History (Systane Balance) Dry Eyes furosemide 20 mg tablet 20 mg PO DAILY 11/11/22 Unknown History ondansetron 4 mg disintegrating 4 mg PO Q8H PRN PRN Nausea #14 tabs 01/07/23 Unknown Rx tablet omeprazole 40 mg capsule,delayed 40 mg PO DAILY #30 caps 02/21/23 Unknown Rx release buspirone 5 mg tablet 5 mg PO BID 09/02/23 Unknown History chlorthalidone 25 mg tablet 25 mg PO Q OTHER DAY 09/02/23 Unknown History cholecalciferol (vitamin D3) 125 125 mcg PO DAILY 09/02/23 Unknown History mcg (5,000 unit) capsule lisinopril 40 mg tablet 40 mg PO DAILY 09/02/23 Unknown History Allergy/AdvReac Type Severity Reaction Status Date / Time pantoprazole Allergy Rash Verified 06/23/24 09:41 hydrocodone bitartrate (From AdvReac Other Verified 06/23/24 09:41 Vicodin) metronidazole AdvReac nausea Verified 06/23/24 09:41 Family History Father Cancer Surgical History Hx of cataract extraction History of esophagogastroduodenoscopy (EGD) History of left heart catheterization (06/2018) History of bladder surgery historybladder surgery History of hysterectomy History of tubal ligation History of laparoscopic appendectomy History of laparoscopic cholecystectomy History of excision of pilonidal cyst History of coronary artery stent placement (12/07/12) Social History Smoking Status: Former smoker alcohol intake: never substance use type: does not use caffeine: Yes what type of physical activity do you participate in: none frequency: does not exercise seatbelt use: always ROS ROS ED Constitutional Constitutional ED: Denies chills, fever(s) or weight loss Eyes Eyes: Denies change in vision or diplopia ENT ENT ED: Denies ear pain, rhinorrhea or sore throat Cardiovascular Cardiovascular: Reports chest pain; Denies orthopnea, palpitations or racing heartbeat Respiratory/Chest Respiratory/Chest: Denies cough, dyspnea or orthopnea Gastrointestinal Gastrointestinal: Denies abdominal pain, diarrhea, nausea or vomiting Genitourinary Genitourinary ED: Denies dysuria, hematuria or urinary frequency Musculoskeletal Musculoskeletal: Reports other Details: Chronic lower extremity swelling ; Denies arthralgias or myalgias Integumentary Denies abscess or rash Neurologic Neurologic: Denies headache(s) or weakness Psychiatric Psychiatric: Denies anxiety, depression, suicidal ideation or suicidal thoughts Endocrine Endocrinology: Denies polydipsia, polyphagia or polyuria Allergic/Immunologic Allergic/Immunologic ED: Denies mouth swelling, tongue swelling or urticaria EXAM Physical Exam Const Vital Signs: 06/23/24 09:38 06/23/24 09:41 06/23/24 09:44 Temperature 97.5 F L Temperature Source Temporal Pulse Rate 79 Respiratory Rate 19 H Respiratory Effort Short of Breath Blood Pressure 174/67 H Blood Pressure Mean 102 Pulse Ox 92 Oxygen Delivery Method Room Air 06/23/24 10:38 06/23/24 11:00 06/23/24 12:00 Temperature Temperature Source Pulse Rate 64 61 64 Respiratory Rate 16 Respiratory Effort Blood Pressure 158/64 H 152/62 H 160/119 H Blood Pressure Mean 95 92 132 Pulse Ox 93 98 94 Oxygen Delivery Method Room Air Room Air Room Air 06/23/24 12:44 Temperature 98 F Temperature Source Pulse Rate 66 Respiratory Rate 17 Respiratory Effort Blood Pressure 149/63 H Blood Pressure Mean 91 Pulse Ox 93 Oxygen Delivery Method Positive well nourished and well developed General Appearance ED: well developed and NAD HEENT Reports normocephalic, head/scalp atraumatic and moist mucous membranes Eyes PERRL and EOMs intact bilaterally Neck no lymphadenopathy, supple and no JVD Chest Wall Chest Narrative: Mild tenderness to palpation over the left anterior chest where the patient hurts. Resp normal respiratory effort and clear to auscultation bilaterally Cardio regular rate, regular rhythm and no murmurs GI normal to inspection, nondistended, normoactive bowel sounds and non-tender Palpation: soft Back/Spine no CVA tenderness and normal ROM Extremity General Extremety ED: Yes edema General Extremity: edema bilateral lower extremity Details: mild Neuro oriented x3 and CN's II-XII intact bilaterally Sensorium / Orientation: alert Motor Exam: strength 5/5 throughout Psych mental status grossly normal Mood & Affect: Negative for depressed or tearful Skin no rashes or lesions noted and no wounds MDM MDM MDM Narrative Medical decision making narrative: Differential diagnosis includes acute coronary syndrome pulmonary embolism aortic dissection/aneurysm pneumonia CHF pneumothorax pleural effusion GERD chest wall pain. 2 sets of cardiac enzymes are negative. BNP 95.4 D-dimer 0.67 which age corrects into the normal range BUN of 21 with a creatinine of 1.31 hemoglobin 14.8. My independent interpretation of the plain films of the chest is no acute process. Patient is has no events on the monitor. Will have the patient increase her Lasix to 40 mg once a day over the next 5 days and have her follow- up next week for BMP check and check of the leg swelling. Patient to return if worsening or concerns. Patient and her granddaughter are comfortable with this plan History & Record Review Discussion w/independent historian: Patient and Family Lab Data Attestation: I reviewed the patient's lab results. Labs: Laboratory Results - last 24 hr 06/23/24 06/23/24 09:47 12:00 WBC 7.1 RBC 4.94 Hgb 14.8 Hct 45.8 MCV 92.7 MCH 30.0 MCHC 32.3 RDW Std Deviation 49.5 H RDW Coeff of Daphnie 14.6 Plt Count 184 MPV 10.8 Immature Gran % (Auto) 0.600 Neut % (Auto) 63.1 Lymph % (Auto) 27.7 [place] % (Auto) 7.0 Eos % (Auto) 0.7 Baso % (Auto) 0.9 Absolute Neuts (auto) 4.5 Absolute Lymphs (auto) 1.95 Nucleated RBC % 0 D-Dimer Quant (PE/DVT) 0.67 H* Sodium 137 Potassium 3.7 Chloride 98 Carbon Dioxide 29.0 Anion Gap 10 BUN 21 H Creatinine 1.31 H Estim Creat Clear Calc 28.69 Est GFR (MDRD) Af Amer 50 L Est GFR (MDRD) Non-Af 41 L BUN/Creatinine Ratio 16.0 Glucose 146 H Calcium 10.1 Magnesium 2.1 Troponin I High Sens < 3 L < 3 L B-Natriuretic Peptide 95.4 Radiography Diagnostic Testing: Clinical Impression(s) from Imaging Studies Chest X-Ray 06/23/24 10:08 IMPRESSION: Mild cardiomegaly. No acute abnormality is seen. Electronically Signed: Ameya Singh MD at 10:22 EDT , EKG Initial EKG: Attestation: I personally reviewed and interpreted this EKG as follows: Comments: Normal sinus rhythm ventricular rate of 70 bpm Prior EKG tracings: available for review Prior: Unchanged (07 January 2023) Discharge Plan Triage Chief Complaint: Chest Pain ED Provider: Daniel López Dx/Rx/DC Orders Clinical Impression: Chest pain, Atherosclerotic heart disease of [place] coronary artery without angina pectoris, Lymphedema Instructions: ED Chest Pain, Noncardiac, ED Lymphedema Prescriptions: No Action isosorbide mononitrate 60 mg tablet extended release 24 hr 60 mg PO DAILY Qty: 90 3RF olopatadine [Pataday] 0.2 % drops 1 drp OPHTHALMIC DAILY PreserVision AREDS-2 [id number] [id number]-mg capsule 1 tab PO BID Rx Instructions: administer with meals metoprolol succinate 50 mg tablet extended release 24 hr 25 mg PO BID diltiazem HCl 120 mg capsule,extended release 24hr 120 mg PO BID melatonin 5 mg capsule 5 mg PO QHS PRN (Reason: Sleep) Systane Balance 0.6 % drops 1 drp ophthalmic (eye) DAILY PRN (Reason: Dry Eyes) furosemide 20 mg tablet 20 mg PO DAILY buspirone 5 mg tablet 5 mg PO BID cholecalciferol (vitamin D3) 125 mcg (5,000 unit) capsule 125 mcg PO DAILY chlorthalidone 25 mg tablet 25 mg PO Q OTHER DAY lisinopril 40 mg tablet 40 mg PO DAILY atorvastatin 40 MG tablet 40 mg PO QHS aspirin 81 MG tablet 81 mg PO DAILY@0800 clopidogrel 75 MG tablet 75 mg PO DAILY ondansetron 4 mg tablet,disintegrating 4 mg PO Q8H PRN PRN (Reason: Nausea) Qty: 14 0RF omeprazole 40 mg capsule,delayed release(DR/EC) 40 mg PO DAILY Qty: 30 2RF nitroglycerin 0.4 mg tablet, sublingual 0.4 mg SUBLINGUAL Q5-15M PRN (Reason: chest pain) Qty: 25 3RF Rx Instructions: until response; do not exceed 3 doses per episode Primary Care Provider: Demetrice Sung Referrals: Demetrice Sung MD [Primary Care Provider] - 5-7 Days (for BMP check) Activity Restrictions/Additional Instructions: Today your EKG appears unchanged from prior. 2 sets of cardiac enzymes were negative. No evidence of blood clots in the lungs was found. No evidence of heart failure on your chest x-ray or in the blood work. I would asked that you increase your Lasix (furosemide) from 20 mg a day to 40 mg once a day over the next 5 days and having follow-up with your primary care doctor early next week. Please return to the emergency department if any concerns or worsening Print Language: Citizen Of [place] Disposition Disposition: Home, Self Care
--- NOTE | 2024-06-23 09:53 | EKG12_ITS ---
Test Reason : Blood Pressure : / mmHG Vent. Rate : 070 BPM Atrial Rate : 070 BPM P-R Int : 130 ms QRS Dur : 074 ms QT Int : 392 ms P-R-T Axes : 059 002 033 degrees QTc Int : 423 ms Normal sinus rhythm Possible Left atrial enlargement Nonspecific ST abnormality Abnormal ECG Confirmed by Chang Bean ([id number]), health editor JUANY DARLING ([id number]) on 06/24/2024 2:04:22 PM Referred By: Confirmed By:Chang Bean
[2024-06-23 10:06] LABS: Absolute Lymphocyte Count 1.95 X10^3/uL (0.83-4.51); Absolute Neutrophil Count 4.5 X10^3/uL (2.0-7.7); Basophil# 0.06 X10^3/uL; Basophil% 0.9 % (0-1); Eosinophil# 0.05 X10^3/uL; Eosinophils% 0.7 % (0-5); Hematocrit 45.8 % (37-47); Hemoglobin 14.8 g/dL (12.0-15.0); Lymphocyte # 1.95 X10^3/ul (0.83-4.51); Lymphocyte % 27.7 % (19-41); Mean Corp Hgb Conc 32.3 g/dL (32-36); Mean Corpuscular Volume 92.7 fL (81-99); Mean Platelet Vol. 10.8 fl (6.2-12.0); Monocyte# 0.49 X10^3/uL; NRBC Flagged by Analyzer 0 % (0-5); Neutrophil # 4.46 X10^3/uL (2.7-7.7); Neutrophil % 63.1 % (47-70); Platelet Count 184 K/mm3 (150-450); RBC Distribution Width CV 14.6 % (11.6-14.6); RBC Distribution Width SD 49.5 fl (35.1-43.9); Red Blood Count 4.94 M/mm3 (4.2-5.4); White Blood Count 7.1 K/mm3 (4.4-11.0)
--- NOTE | 2024-06-23 10:08 | RAD_ITS ---
STUDY: X-RAY CHEST REASON FOR EXAM: Female, 84 years old. Chest pain TECHNIQUE: Single AP portable view of the chest. COMPARISON: Comparison is made with prior study of 11/23/2022. FINDINGS: EKG electrodes are seen The lungs are clear and expanded. There is no demonstrated pleural abnormality. There is mild cardiac enlargement. Normal mediastinum and hilton. Normal visualized pulmonary arteries. There is atherosclerotic calcification of the aortic arch with tortuosity. There are diffuse degenerative changes of the visualized thoracic spine. Normal visualized ribs, clavicles, and shoulders. There is no demonstrated abnormality of the visualized soft tissue structures of the upper abdomen. RAD/Chest 1 View (Portable) IMPRESSION: Mild cardiomegaly. No acute abnormality is seen. Electronically Signed: Ameya Singh MD at 10:22 EDT ,
[2024-06-23 10:24] LABS: D-Dimer Quantitative (DVT/PE) 0.67 FEU/ug/m (0.27-0.49)
[2024-06-23 10:32] LABS: Anion Gap 10 (5-15); BUN 21 mg/dL (7-18); Calcium,Total 10.1 mg/dL (8.5-10.1); Chloride 98 mmol/L (98-107); Creatinine, Serum 1.31 mg/dL (0.55-1.02); EST Glomerular Filtration Rate 41 mL/min (>60); Est Glom Filt Rate - Afr Amer 50 mL/min (>60); Estimated Creatinine Clearance 28.69 ml/min; Glucose 146 mg/dL (74-106); Magnesium 2.1 mg/dL (1.6-2.6); Potassium 3.7 mmol/L (3.5-5.1); Sodium Level 137 mmol/L (136-145); Troponin-I HS (w/2H Reflex) < 3 pg/mL (3.0-54.0)
[2024-06-23 10:38] VITALS: BP 158/64; PULSE 64; RESP 16; O2SAT 93
[2024-06-23 10:41] LABS: BNP,B-Type NATRIURETIC PEPTIDE 95.4 pg/mL (0-100)
[2024-06-23 11:00] VITALS: BP 152/62; PULSE 61; O2SAT 98
[2024-06-23 12:00] VITALS: BP 160/119; PULSE 64; O2SAT 94
[2024-06-23 12:02] LABS: Reflex Troponin-HS? (from REC) Y
[2024-06-23 12:32] LABS: Troponin-I HS < 3 pg/mL (3.0-54.0)
[2024-06-23 12:44] VITALS: BP 149/63; PULSE 66; RESP 17; TEMP 36.6; O2SAT 93
== END 2024-06-23 12:48 | disposition home or self-care (01) ==
PROVIDERS: Emergency Provider Emergency Medicine; PCP Internal Medicine; Visit Provider Emergency Medicine
DX: R07.89 Other chest pain (principal); I25.10 Atherosclerotic heart disease of native coronary artery without angina pectoris; M54.9 Dorsalgia, unspecified; I10 Essential (primary) hypertension; I89.0 Lymphedema, not elsewhere classified; Z87.891 Personal history of nicotine dependence; E78.5 Hyperlipidemia, unspecified; Z95.5 Presence of coronary angioplasty implant and graft; Z79.899 Other long term (current) drug therapy; K21.9 Gastro-esophageal reflux disease without esophagitis; M85.89 Other specified disorders of bone density and structure, multiple sites
CPT/HCPCS: 71045; 80048; 83735; 83880; 84484; 85025; 85379; 93005; 99284; A4216

== ENCOUNTER 2025-06-28 15:31 | Observation (INO) | payer MEDICARE, SELFPAY ==
[2025-06-28] VITALS (12 sets, daily range): BP systolic 150–203; BP diastolic 72–117; PULSE 72–90; RESP 14–22; TEMP 36.3–36.6; O2SAT 94–98; BMI 27.0; BMI 27.6
--- NOTE | 2025-06-28 15:39 | EKG12_ITS ---
Test Reason : CP Blood Pressure : */* mmHG Vent. Rate : 84 BPM Atrial Rate : 84 BPM P-R Int : 124 ms QRS Dur : 70 ms QT Int : 340 ms P-R-T Axes : 64 10 14 degrees QTcB Int : 401 ms Normal sinus rhythm Possible Left atrial enlargement Minor Nonspecific ST and T wave abnormality Abnormal ECG Confirmed by Chang Bean ([id number]), editorial manager JUANY DARLING ([id number]) on 06/29/2025 10:30:41 AM Referred By: Confirmed By: Chang Bean
--- NOTE | 2025-06-28 16:46 | EDS_ITS ---
HPI History of Present Illness Chief Complaint: Chest Pain Informant: patient and family Narrative Narrative: 85-year-old female has been having chest burning radiating to her jaw and both upper extremities for maybe the past month. States she has been to an outside ER 3 times in that period of time for this and discharged each time. A month ago, she had an EGD because of the symptoms that were unremarkable. She states she tried Mylanta and lidocaine GI cocktail during one of the visits and it did not help her burning at all. She states it has been intermittent, nonexertional nonpleuritic, but it seems to becoming more frequent and she has it now more of the time then she does not have it. Lying down does not trigger the symptoms. Nothing else seems to trigger the symptoms. Eating does not modify the symptoms at all. She has a history of stents and paroxysmal atrial fibrillation for which she is anticoagulated on Eliquis she denies feeling any palpitations or syncope recently. She has leg edema that has been fairly unchanged recently. She tried to follow-up make an appointment with cardiology at [facility] where she is an established patient, and they referred her here to the ER today. [facility] Medical History PAF (paroxysmal atrial fibrillation) Kidney stones Unstable angina Bilateral carotid artery stenosis GERD (gastroesophageal reflux disease) Essential (primary) hypertension Dysphagia Celiac artery stenosis Acute right hip pain LVH (left ventricular hypertrophy) Renal cysts, acquired, bilateral History of Helicobacter pylori infection Osteoarthritis History of bacterial pneumonia Hemorrhoids Diverticulosis Secondary pulmonary arterial hypertension NSTEMI (non-ST elevated myocardial infarction) Carotid bruit HLD (hyperlipidemia) Atherosclerotic heart disease of [place] coronary artery without angina pectoris Home Medications ?Medication ?Instructions ?Recorded ?Last Taken ?Type aspirin 81 mg tablet,delayed 81 mg PO DAILY@0800 12/2707/13/18 History release atorvastatin 40 mg tablet 40 mg PO QHS 12/27/13 Unknow n History isosorbide mononitrate 60 mg 60 mg PO DAILY #90 tabs 1 Unknown Rx tablet,extended release 24 hr olopatadine 0.2 % eye drops 1 drp ophthalmic (eye) WILLIE LY 08/29/20 Unknown History (Pataday) metoprolol succinate 50 mg 25 mg PO BID 08/21/21 Unkno wn History tablet,extended release 24 hr melatonin 5 mg capsule 5 mg PO QHS PRN Sleep Unknown History propylene glycol 0.6 % eye drops 1 drp ophthalmic (eye ) DAILY PRN 09/03/22 Unknown History (Systane Balance) Dry Eyes omeprazole 40 mg capsule,delayed 40 mg PO DAILY #30 ca ps 02/21/23 Unknown Rx release buspirone 5 mg tablet 5 mg PO BID 09/02/23 Unknown History cholecalciferol (vitamin D3) 125 125 mcg PO DAILY 05/18 Unknown History mcg (5,000 unit) capsule apixaban 5 mg tablet (Eliquis) 5 mg PO BID 04/22/25 Un known History cetirizine 10 mg tablet (All Day 10 mg PO QDAY PRN all ergy symptoms 04/22/25 Unknown History Allergy (cetirizine)) clonidine HCl 0.1 mg tablet 0.1 mg PO BID PRN blood pr essure 04/22/25 Unknown History furosemide 20 mg tablet 40 mg PO DAILY 04/22/25 Unkn own History lisinopril 40 mg tablet 30 mg PO DAILY 04/22/25 Unkn own History magnesium 200 mg tablet 400 mg PO BID 06/24/25 Unkno wn History nitroglycerin 0.4 mg sublingual 0.4 mg sublingual Q5-1 5M PRN chest 06/24/25 Unknown Rx tablet pain #25 tabs Allergy/AdvReac Type Severity Reaction Status Date / Time pantoprazole Allergy Rash Verified 06/28/25 15:36 hydrocodone bitartrate (From AdvReac Other Verified 06/28/25 15:36 Vicodin) metronidazole AdvReac nausea Verified 06/28/25 15:36 tramadol AdvReac Nausea Verified 06/28/25 15:36 Family History Father Cancer Surgical History Hx of cataract extraction History of esophagogastroduodenoscopy (EGD) History of left heart catheterization (06/2018) History of bladder surgery historybladder surgery History of hysterectomy History of tubal ligation History of laparoscopic appendectomy History of laparoscopic cholecystectomy History of excision of pilonidal cyst History of coronary artery stent placement (12/07/12) Social History household members: none Smoking Status: Former smoker alcohol intake: never substance use type: does not use caffeine: Yes what type of physical activity do you participate in: none frequency: does not exercise seatbelt use: always ROS ROS ED Constitutional Constitutional ED: Denies chills or fever(s) Eyes Eyes: Denies change in vision or diplopia ENT ENT ED: Denies rhinorrhea or sore throat Cardiovascular Cardiovascular: Reports as per HPI, chest pain, leg edema and radiating jaw, neck or arm pain; Denies palpitations Respiratory/Chest Respiratory/Chest: Denies cough or dyspnea Gastrointestinal Gastrointestinal: Denies abdominal pain, diarrhea, nausea or vomiting Genitourinary Genitourinary ED: Denies dysuria or hematuria Musculoskeletal Musculoskeletal: Denies back pain or neck pain Integumentary Denies abscess or rash Neurologic Neurologic: Denies headache(s), paresthesias or weakness Psychiatric Psychiatric: Denies anxiety or suicidal thoughts EXAM Physical Exam Const Vital Signs: 06/28/25 15:32 06/28/25 16:12 06/28/25 16:21 Temperature 97.8 F Temperature Source Oral Pulse Rate 81 Respiratory Rate 16 Respiratory Pattern Normal Blood Pressure 181/90 H Blood Pressure Mean 120 Pulse Ox 94 94 Oxygen Delivery Method Room Air Room Air 06/28/25 16:32 06/28/25 17:00 06/28/25 17:28 Temperature Temperature Source Pulse Rate 80 72 80 Respiratory Rate 19 H 20 H Respiratory Pattern Blood Pressure 184/84 H 184/84 H 184/84 H Blood Pressure Mean 117 117 Pulse Ox Oxygen Delivery Method 06/28/25 18:00 06/28/25 19:27 06/28/25 20:10 Temperature Temperature Source Pulse Rate 77 90 80 Respiratory Rate 22 H 19 H 14 Respiratory Pattern Blood Pressure 171/75 H 166/89 H 203/103 H Blood Pressure Mean 107 114 136 Pulse Ox 96 97 94 Oxygen Delivery Method Room Air Room Air Room Air Positive well nourished and well developed General Appearance ED: well developed and NAD HEENT Reports moist mucous membranes normocephalic and atraumatic Eyes PERRL and EOMs intact bilaterally Neck full ROM and supple Resp normal respiratory effort and clear to auscultation bilaterally Cardio regular rate, regular rhythm and no murmurs Peripheral Pulses: pulses 2+ throughout GI non-tender and non-distended Auscultation: normoactive bowel sounds Palpation: soft Back/Spine no CVA tenderness General Back: other FROM Extremity normal to inspection General Extremety ED: Yes edema; Negative for pulses abnormal or tenderness General Extremity: edema bilateral lower extremity Details: moderate (Without signs of cellulitis or tenderness or palpable cords); Negative for pulses abnormal Neuro oriented x3, CN's II-XII intact bilaterally and no sensory deficits noted Sensorium / Orientation: awake and alert Motor Exam: strength 5/5 throughout Psych mental status grossly normal Skin no rashes or lesions noted and no wounds Heart Score History: Highly Suspicious ECG: Normal Age: >/= 65 years Risk Factors: >/= 3 Risk Factors or History of CAD Score: 6 MDM MDM MDM Narrative Medical decision making narrative: I offered the patient a GI cocktail, however she states she already tried that a couple times at any other ER visits and he did not help at all so she was not given that instead we gave her nitroglycerin which also did not help. She still has chest burning. EKG does not appear to show acute injury, her initial troponin is 30 in context of normal renal function, I discussed with cardiology Dr. Bean who agrees given the information that we have would be reasonable to admit her for stress test if her troponin is not going up. If it is, they would be more likely to repeat her heart catheterization but the mild in-stent stenosis that was seen in her RCA stent 7 years ago is more likely to be stable given that her stent appears to be placed in 2012 along with an LAD stent. The second troponin is 32, essentially unchanged. Patient is doing much better after morphine. Discussed with hospitalist for inpatient observation and stress testing. History & Record Review Additional record(s) reviewed:: Prior outpatient record (Sent from cardiology including heart cath 2018 RCA with mild in-stent stenosis and mild diffuse disease after abnormal stress test; last stress 2019 negative) Lab Data Attestation: I reviewed the patient's lab results. Labs: Laboratory Results - last 24 hr 06/28/25 06/28/25 17:21 19:24 WBC 4.1 L RBC 4.29 Hgb 12.6 Hct 39.5 MCV 92.1 MCH 29.4 MCHC 31.9 L RDW Std Deviation 50.8 H RDW Coeff of Daphnie 15.0 H Plt Count 137 L MPV 11.1 Immature Gran % (Auto) 0.200 Neut % (Auto) 61.4 Lymph % (Auto) 26.7 [place] % (Auto) 9.0 Eos % (Auto) 1.2 Baso % (Auto) 1.5 H Absolute Neuts (auto) 2.5 Absolute Lymphs (auto) 1.09 Nucleated RBC % 0 PT 16.6 H INR 1.3 Sodium 141 Potassium 3.5 Chloride 104 Carbon Dioxide 27.2 Anion Gap 11 BUN 16 Creatinine 0.98 Estim Creat Clear Calc 37.52 L Est GFR (MDRD) Non-Af 57 L BUN/Creatinine Ratio 16.7 Glucose 119 H Calcium 9.3 Troponin T High Sens 30 H Troponin T Hi Sens 2 Hr 32 H Radiography Diagnostic Testing: Clinical Impression(s) from Imaging Studies Chest X-Ray 06/28/25 17:20 IMPRESSION: Mild pulmonary vascular congestion and interstitial edema. No focal consolidation. Mild cardiomegaly, stable. Reading Location: [facility] Rhythm Strip Rhythm Strip: Sinus Rhythm Rate: 80 Ectopy: PVC(s) (at times, frequent; groups of no more than 2) EKG Initial EKG: Attestation: I personally reviewed and interpreted this EKG as follows: Interpretation: Sinus Rhythm and No Acute Injury Pattern Prior EKG tracings: available for review Prior: Unchanged Management Discussion w/another healthcare provider: Hospitalist and Photographic Hand Developer ([facility]) Discharge Plan Dx/Rx/DC Orders Clinical Impression: Chest pain, History of coronary artery stent placement, Anticoagulated on apixaban Disposition Disposition: Acute Care Hospital [facility]
--- NOTE | 2025-06-28 17:20 | RAD_ITS ---
PROCEDURE: CHEST 1 VIEW (PORTABLE) 06/28/2025 REASON FOR EXAM: CHEST PAIN TECHNIQUE: Frontal view of the chest. COMPARISON: 06/23/24 FINDINGS: Mild pulmonary vascular congestion and interstitial edema. no focal consolidation. No pleural effusion or pneumothorax. Mild cardiomegaly, stable. Calcified aortic arch. No acute fractures. RAD/Chest 1 View (Portable) IMPRESSION: Mild pulmonary vascular congestion and interstitial edema. No focal consolidati on. Mild cardiomegaly, stable. Reading Location: [facility]
[2025-06-28] MEDS: Nitroglycerin SL (ED/IMG/CATH) 0.4 MG TABLET SL (17:28)
[2025-06-28 17:29] LABS: Hematocrit 39.5 % (37-47); Hemoglobin 12.6 g/dL (12.0-15.0); Immature Granulocytes Count 0.010 X10^3/uL (0.0-0.0); Mean Corp Hgb Conc 31.9 g/dL (32-36); Mean Corpuscular Volume 92.1 fL (81-99); Mean Platelet Vol. 11.1 fl (6.2-12.0); NRBC Flagged by Analyzer 0 % (0-5); Platelet Count 137 K/mm3 (150-450); RBC Distribution Width CV 15.0 % (11.6-14.6); RBC Distribution Width SD 50.8 fl (35.1-43.9); Red Blood Count 4.29 M/mm3 (4.2-5.4); White Blood Count 4.1 K/mm3 (4.4-11.0)
[2025-06-28 17:46] LABS: Prothrombin Time (Protime)PT. 16.6 SECONDS (11.7-14.9)
[2025-06-28 18:17] LABS: Anion Gap 11 (5-15); BUN 16 mg/dL (4-19); BUN/Creat Ratio 16.7 RATIO (10-20); Calcium,Total 9.3 mg/dL (7.6-11.0); Carbon Dioxide 27.2 mmol/L (21.0-32.0); Chloride 104 mmol/L (98-108); Estimated Creatinine Clearance 37.52 ml/min (50-250); Glucose 119 mg/dL (70-99); Potassium 3.5 mmol/L (3.3-5.1); Troponin T High Sensitivity 30 ng/L (<=14)
[2025-06-28 19:56] LABS: Troponin T High Sens 2 HR 32 ng/L (<=14)
--- NOTE | 2025-06-28 20:34 | HP.PCM.HOS_ITS ---
HPI - General General Date of Admission: 06/28/25 Date of Service: 06/28/25 Chief Complaint: Chest pain. HPI Narrative The patient is an 85 y/o F w/ PMHx: Anxiety, CKD stage III unclear subtype per GFR trending, PAF, GERD, HTN, HLD, Former tobacco use, Secondary Pulm HTN, Renal artery stenosis/celiac artery stenosis/carotid disease, CAD s/p PCI LAD and distal RCA 2012 with most recent cardiac catheterization following 06/2018 with normal left main, LAD previously stented, diagonal vessel with ostial 30 to 40% stenosis, circumflex nondominant with no significant stenosis, diffusely diseased RCA with medical therapy recommended at that time with recent cardiology visit 06/24/2025 with ongoing episode of atypical chest pain with ER and GI workup outpatient noted to be unremarkable with plan stress testing who now presents again to the ED on 06/28/2025 with history of chest discomfort described as a burning with radiation to her jaw and both upper extremities ongoing for the last month with as noted previously outpatient ED evaluations and EGD which were unremarkable with usage of [id number] Mylanta as well as lidocaine GI cocktail with no improvement noted to be intermittent and nonexertional however recently she reports it has been more frequent not worsened by laying down nor any eating specific foods with stable unchanged lower extremity edema prompting reevaluation. She notes prior to ED interventions her chest discomfort was rated 10 out of 10 in severity and following morphine she notes it is now completely 0 out of 10. Workup in the ED included T97.8, heart rate 81, BP 181/90, respiratory rate 16, 94% on room air with most recent repeat vitals heart rate 80, BP 203/103, respiratory rate 14, 94% on room air, CBC with WC 4.1, hgb 12.6, platelet 137 without marked shift, coags with INR 1.3, PT 16.6, BMP with BUN/creatinine 16/0.98, GFR 57, glucose 119, initial troponin 30 with repeat delta 32, chest x-ray with mild cardiomegaly, mild pulmonary vascular congestion and interstitial edema, EKG with sinus rhythm with no acute evidence of ischemia. In the ED patient ministered morphine 4 mg IV x 1 as well as sublingual nitroglycerin. ED did discuss case with travel assistant Dr. Bean who recommended cardiac stress testing and if this is abnormal to certainly consult them for cardiac catheterization and noted also if for some reason cardiac enzymes did rise significantly above the 100 to transition to heparin drip and also request cardiology evaluation. [facility] Medical History PAF (paroxysmal atrial fibrillation) Kidney stones Unstable angina Bilateral carotid artery stenosis GERD (gastroesophageal reflux disease) Essential (primary) hypertension Dysphagia Celiac artery stenosis Acute right hip pain LVH (left ventricular hypertrophy) Renal cysts, acquired, bilateral History of Helicobacter pylori infection Osteoarthritis History of bacterial pneumonia Hemorrhoids Diverticulosis Secondary pulmonary arterial hypertension NSTEMI (non-ST elevated myocardial infarction) Carotid bruit HLD (hyperlipidemia) Atherosclerotic heart disease of [place] coronary artery without angina pectoris Home Medications ?Medication ?Instructions ?Recorded ?Last Taken ?Type aspirin 81 mg tablet,delayed 81 mg PO DAILY@0800 12/2707/13/18 History release atorvastatin 40 mg tablet 40 mg PO QHS 12/27/13 Unknow n History isosorbide mononitrate 60 mg 60 mg PO DAILY #90 tabs 1 Unknown Rx tablet,extended release 24 hr olopatadine 0.2 % eye drops 1 drp ophthalmic (eye) WILLIE LY 08/29/20 Unknown History (Pataday) metoprolol succinate 50 mg 25 mg PO BID 08/21/21 Unkno wn History tablet,extended release 24 hr melatonin 5 mg capsule 5 mg PO QHS PRN Sleep Unknown History propylene glycol 0.6 % eye drops 1 drp ophthalmic (eye ) DAILY PRN 09/03/22 Unknown History (Systane Balance) Dry Eyes omeprazole 40 mg capsule,delayed 40 mg PO DAILY #30 ca ps 02/21/23 Unknown Rx release buspirone 5 mg tablet 5 mg PO BID 09/02/23 Unknown History cholecalciferol (vitamin D3) 125 125 mcg PO DAILY 05/18 Unknown History mcg (5,000 unit) capsule apixaban 5 mg tablet (Eliquis) 5 mg PO BID 04/22/25 Un known History cetirizine 10 mg tablet (All Day 10 mg PO QDAY PRN all ergy symptoms 04/22/25 Unknown History Allergy (cetirizine)) clonidine HCl 0.1 mg tablet 0.1 mg PO BID PRN blood pr essure 04/22/25 Unknown History furosemide 20 mg tablet 40 mg PO DAILY 04/22/25 Unkn own History lisinopril 40 mg tablet 30 mg PO DAILY 04/22/25 Unkn own History magnesium 200 mg tablet 400 mg PO BID 06/24/25 Unkno wn History nitroglycerin 0.4 mg sublingual 0.4 mg sublingual Q5-1 5M PRN chest 06/24/25 Unknown Rx tablet pain #25 tabs Allergy/AdvReac Type Severity Reaction Status Date / Time pantoprazole Allergy Rash Verified 06/28/25 15:36 hydrocodone bitartrate (From AdvReac Other Verified 06/28/25 15:36 Vicodin) metronidazole AdvReac nausea Verified 06/28/25 15:36 tramadol AdvReac Nausea Verified 06/28/25 15:36 Family History Father Cancer Mother , Unknown medical history, notes she was raised in a children's home. No problems noted. Surgical History Hx of cataract extraction History of esophagogastroduodenoscopy (EGD) History of left heart catheterization (06/2018) History of bladder surgery historybladder surgery History of hysterectomy History of tubal ligation History of laparoscopic appendectomy History of laparoscopic cholecystectomy History of excision of pilonidal cyst History of coronary artery stent placement (12/07/12) Social History household members: none Smoking Status: Former smoker alcohol intake: never substance use type: does not use caffeine: Yes what type of physical activity do you participate in: none frequency: does not exercise seatbelt use: always ROS ROS Narrative Admission Review of Systems: CONSTITUTIONAL: No weight loss, fever, chills, + weakness or fatigue. HEENT: + Jaw pain. Eyes: No visual loss, blurred vision, double vision or yellow sclerae. Ears, Nose, Throat: No hearing loss, sneezing, congestion, runny nose or sore throat. SKIN: No rash or itching, lesions, wounds. CARDIOVASCULAR: + Chest pain, jaw pain, upper extremity pain, chronic anemia. No palpitations, orthopnea, syncopal events. RESPIRATORY: No shortness of breath, cough or sputum, wheezing, hemoptysis. GASTROINTESTINAL: No anorexia, nausea, vomiting or diarrhea, abdominal pain, melena, BRBPR. GENITOURINARY: No dysuria, frequency, urgency or retention. NEUROLOGICAL: No headache, dizziness, syncope, paralysis, ataxia, numbness or tingling in the extremities, focal weakness, change in bowel or bladder control, seizure. MUSCULOSKELETAL: + muscle, back pain, joint pain or stiffness. HEMATOLOGIC: No anemia. + Easy bleeding/bruising. LYMPHATICS: No enlarged nodes. No history of splenectomy. PSYCHIATRIC: + History of anxiety. ENDOCRINOLOGIC: No reports of sweating, cold or heat intolerance. No polyuria or polydipsia. ALLERGIES: + History allergic rhinitis. Vital Signs Vital Signs Vital Signs: 06/28/25 15:32 06/28/25 16:12 06/28/25 16:21 Temperature 97.8 F Temperature Source Oral Pulse Rate 81 Respiratory Rate 16 Respiratory Pattern Normal Blood Pressure 181/90 H Blood Pressure Mean 120 Pulse Ox 94 94 Oxygen Delivery Method Room Air Room Air 06/28/25 16:32 06/28/25 17:00 06/28/25 17:28 Temperature Temperature Source Pulse Rate 80 72 80 Respiratory Rate 19 H 20 H Respiratory Pattern Blood Pressure 184/84 H 184/84 H 184/84 H Blood Pressure Mean 117 117 Pulse Ox Oxygen Delivery Method 06/28/25 18:00 06/28/25 19:27 06/28/25 20:10 Temperature Temperature Source Pulse Rate 77 90 80 Respiratory Rate 22 H 19 H 14 Respiratory Pattern Blood Pressure 171/75 H 166/89 H 203/103 H Blood Pressure Mean 107 114 136 Pulse Ox 96 97 94 Oxygen Delivery Method Room Air Room Air Room Air Weight Weight: 143 lb 2 oz Body Mass Index (BMI) 27.0 Physical Exam Narrative Physical Examination: General: Awake, alert, oriented x 3 and cooperative, seated upright in the ED bed, notes chest pain currently completely resolved. Skin: Normal color, normal turgor, no icterus, no cyanosis except occasional stage ecchymoses, abrasion. HEENT: AT/NC, EOMI, PERRLA, MMM, no carotid bruits or JVD noted. Lungs: Mildly diminished, greater bases, appropriate effort, no rales, ronchi or wheezing. Heart: Regular rate and rhythm; no gallop, rub audible. On monitor note occasional frequent PVC. Abdomen: Soft, NTTP, ND, mildly hyperactive BS, no appreciated HSM. Extremities: No cyanosis, no clubbing, pedal to just distal to the knee 2-3+ pitting edema which she notes is chronic stable. Neurological: Patient awake, alert, oriented x 3, cognitive function intact; pupils equally reactive to light and accommodation, cranial nerves grossly normal, moving all 4 extremities, no focal deficits, strength moderately globally decreased. Psychiatric: Affect appears fatigued otherwise normal, no acute evidence of depressive or anxiety feelings but does have underlying history. Results Lab / Micro Data 06/28/25 17:21 06/28/25 17:21 Labs: Laboratory Results - last 24 hr 06/28/25 17:21: WBC 4.1 L, RBC 4.29, Hgb 12.6, Hct 39.5, MCV 92.1, MCH 29.4, M CHC 31.9 L, RDW Std Deviation 50.8 H, RDW Coeff of [place]aph[place] 15.0 H, Plt Count 137 L, MPV 11.1, Immature Gran % (Auto) 0.200, Neut % (Auto) 61.4, Lymph % (Auto) 26.7, [place] % (Auto) 9.0, Eos % (Auto) 1.2, Baso % (Auto) 1.5 H, Absolute Neuts (auto) 2.5, Absolute Lymphs (auto) 1.09, Nucleated RBC % 0, PT 16.6 H, INR 1.3, Sodium 141, Potassium 3.5, Chloride 104, Carbon Dioxide 27.2, Anion Gap 11, BUN 16, Creatinine 0.98, Estim Creat Clear Calc 37.52 L, Est GFR (MDRD) Non-Af 57 L, BUN/Creatinine Ratio 16.7, Glucose 119 H, Calcium 9.3, Troponin T High Sens 30 H 06/28/25 19:24: Troponin T Hi Sens 2 Hr 32 H Rhythm Strip Rhythm Strip: Sinus Rhythm Rate: 80 Ectopy: PVC(s) (at times, frequent; groups of no more than 2) Imaging Radiology Impression Chest X-Ray 06/28/25 17:20 IMPRESSION: Mild pulmonary vascular congestion and interstitial edema. No focal consolidation. Mild cardiomegaly, stable. Reading Location: [facility] Assessment & Plan Assessment/Plan (1) Chest pain: PLAN: Plan The patient is an 85 y/o F w/ PMHx: Anxiety, CKD stage III unclear subtype per GFR trending, PAF, GERD, HTN, HLD, Former tobacco use, Secondary Pulm HTN, Renal artery stenosis/celiac artery stenosis/carotid disease, CAD s/p PCI LAD and distal RCA 2012 with most recent cardiac catheterization following 06/2018 with normal left main, LAD previously stented, diagonal vessel with ostial 30 to 40% stenosis, circumflex nondominant with no significant stenosis, diffusely diseased RCA with medical therapy recommended at that time with recent cardiology visit 06/24/2025 with ongoing episode of atypical chest pain with ER and GI workup outpatient noted to be unremarkable with plan stress testing who now presents again to the ED on 06/28/2025 with history of chest discomfort described as a burning with radiation to her jaw and both upper extremities ongoing for the last month with as noted previously outpatient ED evaluations and EGD which were unremarkable with usage of [id number] Mylanta as well as lidocaine GI cocktail with no improvement noted to be intermittent and nonexertional however recently she reports it has been more frequent not worsened by laying down nor any eating specific foods with stable unchanged lower extremity edema prompting reevaluation. #1. Chest Pain with indeterminant cardiac enzyme of unclear significance: EKG in ED with sinus rhythm with no acute evidence of ischemia, CXR w/ no acute cardiopulmonary findings with mild cardiomegaly, mild pulmonary vascular congestion/interstitial edema, initial trop 30 with repeat troponin 32. Will admit to PCU, place on a monitored bed to assure no acute myocardial infarction with serial cardiac enzymes and EKGs. BMP requested. Magnesium requested. FLP in AM. If repeat cardiac enzymes remain similar per recent plan per cardiology will pursue a.m. cardiac stress testing. Continue Eliquis, ASA, NG, morphine. #2. Hypertensive emergency: Given troponin elevation noted to be 30 with repeat delta 32 in the setting of significantly elevated blood pressure with chest pain notable concern, will maintain on telemetry as noted above, continue to evaluate as noted #1, will continue metoprolol, lisinopril, isosorbide, Lasix, clonidine with alterations as needed, as needed IV hydralazine additionally. #3. CAD: Patient s/p PCI LAD and distal RCA 2012 with most recent cardiac catheterization following 06/2018 with normal left main, LAD previously stented, diagonal vessel with ostial 30 to 40% stenosis, circumflex nondominant with no significant stenosis, diffusely diseased RCA with medical therapy recommended at that time, pending evaluation as noted above we will continue patient aspirin, Eliquis, statin, metoprolol, lisinopril. #4. PAF: Will continue patient home metoprolol and Eliquis regimen. #5. Hyperlipidemia: Continue home statin regimen. AM FLP. #6. Carotid disease, renal artery/celiac artery stenosis: Most recent noted carotid ultrasound 11/29/2020 with less than 50% stenosis right internal and external carotid artery, 50 to 69% stenosis left internal carotid artery and most recent renal artery duplex noted 11/19/2022 with greater than 70% stenosis iliac artery, less than 60% stenosis right renal artery, less than 60% stenosis left renal artery, encourage continued follow-up outpatient with further imaging/evaluation as previously arranged. #7. Chronic Kidney Disease Stage III, unclear subtype per GFR trending: Admission BUN/Cr 16/0.8, GFR 57, baseline renal function primarily 0.7-1.0 however recently had elevated creatinine with 06/23/2024 creatinine 1.31, has since improved, repeat BMP in AM. #8. Thrombocytopenia, acute on chronic: Admission platelets 137, has certainly vacillated however most recently normal range, 06/23/2024 platelets 184, continue to closely monitor. #9. Former tobacco use: Encouraged continued tobacco cessation. #10. Anxiety: Will continue patient home BuSpar regimen. #11. DVT prophylaxis: Continue home apixaban regimen. #12. CODE status: Patient ARIANNE unfortunately has since but she notes she intends to redo this and notes her son Prabhjot would be her medical decision- maker if necessary, she does have a living will in place but again it is older she notes. Discussed CODE status at length including difference between FULL code, DNR-CCA and DNR-CC status. Following discussions about the differences in these status, requested Full Code status. Advanced Care Planning Face to Face Time: 16 minutes. Charges/Coding Visit Charges Inpatient E&M: 76777 Init Hosp L2 Procedures Hospitalists Procedures: [id number] Advncd Care Plan 30 Min
--- NOTE | 2025-06-28 20:41 | EKG12_ITS ---
Test Reason : DYSRHYTHMIA Blood Pressure : */* mmHG Vent. Rate : 80 BPM Atrial Rate : 80 BPM P-R Int : 122 ms QRS Dur : 70 ms QT Int : 374 ms P-R-T Axes : 60 8 14 degrees QTcB Int : 431 ms Sinus rhythm with Premature supraventricular complexes Otherwise normal ECG Confirmed by Chang Bean [id number]), script editor JUANY DARLING ([id number]) on 06/29/2025 10:31:10 AM Referred By: Confirmed By: Chang Bean
--- NOTE | 2025-06-28 21:53 | EKG12_ITS ---
Test Reason : CP ADMIT Blood Pressure : */* mmHG Vent. Rate : 77 BPM Atrial Rate : 77 BPM P-R Int : 126 ms QRS Dur : 72 ms QT Int : 384 ms P-R-T Axes : 57 5 13 degrees QTcB Int : 434 ms Sinus rhythm with Premature supraventricular complexes Otherwise normal ECG When compared with ECG of 28-Jun-2025 21:00, MANUAL COMPARISON REQUIRED DATA IS UNCONFIRMED Confirmed by Chang Bean ([id number]), web content editor LINA ALEJANDRO ([id number]) on 06/29/2025 8:14:00 AM Referred By: Confirmed By: Chang Bean
[2025-06-28 22:05] LABS: Troponin T High Sens 4 HR 37 ng/L (<=14)
[2025-06-28 22:33] LABS: Magnesium 2.1 mg/dL (1.5-2.2)
[2025-06-28] MEDS: Metoprolol(XL)Succ 25 MG Tablet PO (23:06)
[2025-06-28] MEDS: APIXABAN 5 MG TABLET PO (23:06)
[2025-06-28] MEDS: Magnesium Chloride 64 MG Delay Rel.Tablet 128 MG PO (23:06)
[2025-06-28] MEDS: 0.9% Normal Saline (1000mL) 1,000 ML 75 ML IV (23:07)
--- OUTSIDE RECORDS SUMMARY | 2025-06-28 23:37 | XMS RPT_ITS | CCD ---
Author Organization [facility] Providers Care Smutter Name Role Phone Cindy Bobo RN Unavailable Unavailable MARLA ROWLAND Unavailable Unavailable MIMA GRUBER Unavailable Unavailable LATOUF, SHELLEYROS Unavailable Unavailable LATOUF, BUTROS Unavailable Unavailable CHINTAN MEADOWS Unavailable Unavailable ALHATEM, MIRZA Unavailable Unavailable JANE KUHN Unavailable Unavailable Anita Sung MD Primary Care Provider Anita Sung MD Primary Care Provider Dr. Anita Sung Primary Care Provider Dr. Anita Sung Referring Provider Dr. Parminder Tam Attending Provider Dr. Ok Swan Attending Provider Dr. Marycruz Campo Referring Provider Anita Sung MD Primary Care Provider Dr. Anita Sung Primary Care Provider Dr. Ok Swan Attending Provider Dr. Marycruz Campo Referring Provider Dr. Anita Sung Referring Provider Dr. Ok Swan Referring Provider Dr. Anita Sung Primary Care Provider Dr. Ok Swan Attending Provider Dr. Anita Sung Primary Care Provider Dr. Anita Sung Referring Provider LAURA Perales Attending Provider Dr. Ok Swan Attending Provider Dr. Ok Swan Referring Provider Anita Sung MD Primary Care Provider COOPERSALVADOR VAN T Attending Unavailabl e LATOUF, BUTROS Primary Care Unavailable COOPERRIDER II, TOMMY H Attending Unavailabl e LATOUF, BUTROS Primary Care Unavailable COOPERRIDER II, TOMMY H Attending Unavailabl e LATOUF, BUTROS Primary Care Unavailable COOPERRIDER II, TOMMY H Attending Unavailabl e COOPERRIDER II, TOMMY H Referring Unavailabl e LATOUF, BUTROS Primary Care Unavailable COOPERRIDER, VAN T Attending Unavailabl e SELF Referring Unavailable LATOUF, BUTROS Primary Care Unavailable COOPERRIDER, VAN T Attending Unavailabl e SELF Referring Unavailable LATOUF, BUTROS Primary Care Unavailable COOPERRIDER, VAN T Attending Unavailabl e COOPERRIDER, VAN T Referring Unavailabl e LATOUF, BUTROS Primary Care Unavailable Dr. Anita Sung MD Primary Care Provider Dr. Anita Sung MD Referring Provider Savana Perales Attending Provider KRANTHI MAURICIO Attending Unavailable KRANTHI MAURICIO Primary Care Unavailable KRANTHI MAURICIO Admitting Unavailable January BRAND STRATEGIST Consulting Unavailable ANDRES, DENZEL T Admitting Unavailable ANDRES, DENZEL T Attending Unavailable ANDRES, DENZEL T Primary Care Unavailable PROVIDER, UNKNOWN Consulting Unavailable PROVIDER, UNKNOWN Consulting Unavailable ANITA SUNG MD Consulting Unavailable DEMETRIO WASHINGTON MD Admitting Unavailable DEMETRIO WASHINGTON MD Attending Unavailable DEMETRIO WASHINGTON MD Primary Care Unavailable PROVIDER, UNKNOWN Consulting Unavailable PROVIDER, UNKNOWN Consulting Unavailable PROVIDER, UNKNOWN Consulting Unavailable ANITA SUNG MD Admitting Unavailable ANITA SUNG MD Attending Unavailable ANITA SUNG MD Primary Care Unavailable January BRAND STRATEGIST Consulting Unavailable PROVIDER, UNKNOWN Consulting Unavailable PROVIDER, UNKNOWN Consulting Unavailable ALIX ANDERSON MD Attending Unava ilALIX Ibanez MD Primary Care Unakiera ilable ANITA SUNG MD Consulting Unavailable ALIX ANDERSON MD Admitting Unava ilable PROVIDER, UNKNOWN Consulting Unavailable PROVIDER, UNKNOWN Consulting Unavailable PROVIDER, UNKNOWN Consulting Unavailable ANITA SUNG MD Consulting Unavailable ALIX ANDERSON MD Attending Unava ilable MONICA, ALIX MAGANA Primary Care Unava ilable VANDANATOBETTYE, ALIX MAGANA Admitting Unava ilable PROVIDER, UNKNOWN Consulting Unavailable PROVIDER, UNKNOWN Consulting Unavailable PROVIDER, UNKNOWN Consulting Unavailable ANITA SUNG MD Primary Care Unavailable ANITA SUNG MD Admitting Unavailable LATANITA WINCHESTER MD Attending Unavailable ANITA SUNG MD Consulting Unavailable PROVIDER, UNKNOWN Consulting Unavailable PROVIDER, UNKNOWN Consulting Unavailable PROVIDER, UNKNOWN Consulting Unavailable ALIX ADNERSON MD Attending Unava ilable BUCKTOWARANNETTE, ALIX MAGANA Primary Care Unava ilable MONICA, ALIX MAGANA Admitting Unava ilable ANITA SUNG MD Consulting Unavailable PROVIDER, UNKNOWN Consulting Unavailable PROVIDER, UNKNOWN Consulting Unavailable PROVIDER, UNKNOWN Consulting Unavailable ANITA SUNG MD Primary Care Unavailable ANITA SUNG MD Admitting Unavailable ANITA SUNG MD Attending Unavailable ANITA SUNG MD Consulting Unavailable PROVIDER, UNKNOWN Consulting Unavailable PROVIDER, UNKNOWN Consulting Unavailable PROVIDER, UNKNOWN Consulting Unavailable January BRAND STRATEGIST Admitting Unavailable January BRAND STRATEGIST Attending Unavailable January BRAND STRATEGIST Consulting Unavailable January BRAND STRATEGIST Primary Care Unavailable PROVIDER, UNKNOWN Consulting Unavailable PROVIDER, UNKNOWN Consulting Unavailable DEMETRIO WASHINGTON MD Primary Care Unavailable DEMETRIO WASHINGTON MD Admitting Unavailable DEMETRIO WASHINGTON MD Attending Unavailable ANITA SUNG MD Referring Unavailable ANITA SUNG MD Consulting Unavailable PROVIDER, UNKNOWN Consulting Unavailable PROVIDER, UNKNOWN Consulting Unavailable PROVIDER, UNKNOWN Consulting Unavailable January BRAND STRATEGIST Consulting Unavailable KRANTHI MAURICIO Admitting Unavailable KRANTHI MAURICIO Attending Unavailable January BRAND STRATEGIST Referring Unavailable KRANTHI MAURICIO Primary Care Unavailable PROVIDER, UNKNOWN Consulting Unavailable PROVIDER, UNKNOWN Consulting Unavailable January BRAND STRATEGIST Consulting Unavailable TANI PELAYO Primary Care Unavailable TANI PELAYO Admitting Unavailable TANI PELAYO Attending Unavailable PROVIDER, UNKNOWN Consulting Unavailable PROVIDER, UNKNOWN Consulting Unavailable RAIN, LYNNE BRAND STRATEGIST Consulting Unavailable COVERDAPERCY MOTA MD Admitting Unavailable COVERDASVETLANA, PERCY MAGANA Attending Unavailable COVERDAPERCY MOTA MD Primary Care Unavailable PROVIDER, UNKNOWN Consulting Unavailable PROVIDER, UNKNOWN Consulting Unavailable ANITA SUNG MD Consulting Unavailable KRANTHI MAURICIO Primary Care Unavailable KRANTHI MAURICIO Admitting Unavailable KRANTHI MAURICIO Attending Unavailable ANITA SUNG MD Referring Unavailable PROVIDER, UNKNOWN Consulting Unavailable PROVIDER, UNKNOWN Consulting Unavailable PROVIDER, UNKNOWN Consulting Unavailable CODY MARTINEZ JR Admitting Unavailable CODY MARTINEZ JR Attending Unavailable ANITA SUNG MD Consulting Unavailable ANITA SUNG MD Referring Unavailable CODY MARTINEZ JR Primary Care Unavailable PROVIDER, UNKNOWN Consulting Unavailable PROVIDER, UNKNOWN Consulting Unavailable PROVIDER, UNKNOWN Consulting Unavailable Royer MAGANA, Dr. Payan Attending Provider [phone] Latouf, Butros Referring Unavailable Latouf, Butros Primary Care Unavailable Savana Perales Attending Unavail able Latouf, Butros Primary Care Unavailable Savana Perales Attending Unavail able Latouf, Butros Referring Unavailable Latouf, Butros Primary Care Unavailable Lm Tamril Attending Unavailable Latouf, Butros Referring Unavailable Dr. Camden Hernandez MD Emergency Provider Care Physician, No Primary Primary Care Provider Unavailable Colt MAGANA, Dr. Mary Najera Attending Provider Dr. Mary Gregory MD Admit Provider [phone] Allergies Allergy Classification Reported Allergen(s) Allergy Type Date of Onset Reaction(s) Facility (3 sources) acetaminophen / HYDROcodone; Translations: [VICODIN] Drug Allergy 3 [facility] Work Phone: (20 sources) metroNIDAZOLE; Translations: [METRONIDAZOLE] Drug Allergy 7 Unknown [facility] Work Phone: (13 sources) Acetaminophen / HYDROcodone; Translations: [HYDROCODONE-ACET AMINOPHEN] Drug Allergy 5 Unknown [facility] (20 sources) HYDROcodone; Translations: [HYDROCODONE BITARTRATE] Drug Allergy 0 Other: See Comments [facility] (15 sources) pantoprazole; Translations: [PANTOPRAZOLE] Drug Allergy 3 Rash [facility] (2 sources) pantoprazole Drug Allergy [facility] (1 source) traMADol Drug Allergy [facility] (1 source) HYDROcodone Drug Allergy 5 [facility] (1 source) pantoprazole Drug Allergy 5 [facility] (1 source) traMADol Drug Allergy 5 Nausea [facility] Medications Current Medications Medication Drug Class(es) Dates Sig (Normalized) Sig (Original) apixaban 5 mg oral tablet (4 sources) Factor Xa Inhibitor Start: 04-22-2025 take 1 tablet by mouth twice daily Apixaban (Eliquis) 5 mg tablet Active 5 mg PO TWICE A DAY April 22, 2025 12:00am Start: 03-08-2025 take 1 tablet by kevin th every twelve hours ELIQUIS 5 mg tab(s) Take 1 tablet by mouth every 12 hours. 03/08/2025 Active aspirin 81 mg chewable tablet (20 sources) Nonsteroidal Anti-inflammatory Drug Start: 11-22-2014 take 1 tablet by mouth once daily aspirin 81 mg chewable tablet Take 1 tablet by mouth once daily. 0 11/22/2014 Active Start: 12-22-2012 take 1 tablet by kevin th once daily Aspirin 81 MG tablet Active 81 mg PO DAILY@0800 December 27, 2013 1:00am Start: 12-22-2012 take 1 tablet by kevin th once daily ASPIRIN 81 MG TABS One tablet by mouth daily ASPIRIN [id number] Cindy Bobo RN Comment on above: Take 1 tablet by kevin th once daily. atorvastatin 40 mg oral tablet (20 sources) HMG-CoA Reductase Inhibitor Start: 3 take 1 tablet by mouth at bedtime Atorvastatin 40 MG tablet Active 40 mg PO AT BEDTIME December 27, 2013 1:00am Start: 12-22-2012 take 1 tablet by kevin th once daily ATORVASTATIN CALCIUM 10 MG TABS One tablet by mouth daily ATORVASTATIN CALCIUM [id number] Cindy Bobo RN Comment on above: Take 1 tablet by kevin th once daily. BENEFIBER, GUAR GUM, ORAL (12 sources) BENEFIBER, GUAR GUM, ORAL Take by mouth. Active BENEFIBER, GUAR GUM, ORAL Take by mouth. 0 Active Comment on above: Take by mouth. benoxinate hydrochloride 4 mg/ml / fluorescein sodium 3 mg/ml ophthalmic solution (7 sources) Diagnostic Dye Start: 03-23-2025 End: 03-23-2025 fluorescein-benoxinat e 0.3-0.4 % 1 drop (FLURESS) Start: 03-23-2025 End: 03-23-2025 1 drop, BOTH EYES, DIRECT ED, Starting on Fri03/23/25 at 0900, Until Fri03/23/25 at 205, Administer for applanation tonometry. In the event of a Fluress shortage, administer Cassidy-Fluor 1 drop into both eyes as directed for applanation tonometry Start: 09-15-2024 End: 09-16-2024 fluorescein-benoxinate 0.3-0 .4 % 1 Drop (FLURESS) Start: 09-15-2024 End: 09-16-2024 1 Drop, BOTH EYES, DIRECT ED, Starting on Fri09/15/24 at 1430, Until Ariadna 09/16/24 at 0229, Administer for applanation tonometry. In the event of a Fluress shortage, administer Cassidy-Fluor 1 drop into both eyes as directed for applanation tonometry Start: 05-20-2024 End: 05-20-2024 fluorescein-benoxinate 0.3-0 .4 % 1 Drop (FLURESS) Start: 01-02-2023 End: 01-03-2023 fluorescein-benoxinate 0.25- 0.4 % 1 Drop (FLURESS) busPIRone hydrochloride 5 mg oral tablet (12 sources) Start: 02-11-2023 take 1 tablet by mouth twice daily Buspirone 5 mg tablet Active 5 mg PO TWICE A DAY September 02, 2023 1:00am cetirizine hydrochloride 10 mg oral tablet (15 sources) Histamine-1 Receptor Antagonist Start: 04-22-2025 take 1 tablet by mouth once daily as needed Cetirizine (All Day Allergy (Cetirizine)) 10 mg tablet Active 10 mg PO daily as needed for allergy symptoms April 22, 2025 12:00am take 1 tablet by mouth once madisyn y cetirizine HCl (ZYRTEC) 10 mg chewable tablet Take 10 mg by mouth once daily. Active Comment on above: Take 10 mg by mouth once daily. cholecalciferol 0.125 mg oral capsule (8 sources) Vitamin D Start: 09-02-20 take 1 capsule by mouth once daily Cholecalciferol (Vitamin D3) 125 mcg (5,000 unit) capsule Active 125 ug PO DAILY September 02, 2023 1:00am take 1 tablet by mouth once madisyn y cholecalciferol (VITAMIN D-3) 5,000 unit tab Take 5,000 Units by mouth once daily. Active clonazePAM (12 sources) Benzodiazepine clonazepam (KLON OPIN ORAL) Take by mouth. Active clonazepam (KLON OPIN ORAL) Take by mouth. 0 Active Comment on above: Take by mouth. cloNIDine hydrochloride 0.1 mg oral tablet (20 sources) Central alpha-2 Adrenergic Agonist Start: take 1 tablet by mouth twice daily as needed Clonidine Hcl 0.1 mg tablet Active 0.1 mg PO TWICE A DAY as needed for blood pressure April 22, 2025 12:00am Start: 11-03-2022 End: 09-02-2023 take 1 tablet by mouth twice daily Clonidine Hcl 0.1 mg tablet Discontinued 0.1 mg PO .COMPLEX November 11, 2022 1:00am September 02, 2023 12:03pm 0.1 mg orally twice a day for SBP >160.; fluticasone (7 sources) Corticosteroid fluticasone prop ionate (FLONASE NASAL) Use in the nose. Active fluticasone prop ionate (FLONASE NASAL) Use in the nose. 0 Active furosemide 20 mg oral tablet (20 sources) Loop Diuretic Start: 04-22-2025 take 2 tablets by mouth once daily Furosemide 20 mg tablet Active 40 mg PO DAILY April 22, 2025 10:19am Start: 11-11-2022 End: 04-22-2025 take 1 tablet by mouth once daily Furosemide 20 mg tablet Discontinued 20 mg PO DAILY November 11, 2022 1:00am April 22, 2025 10:24am Comment on above: Take 20 mg by mouth once daily. isosorbide dinitrate 30 mg oral tablet (13 sources) Nitrate Vasodilator Start: 11-22-2014 isosorbide dinitrate (ISORDIL, SORBITRATE) 30 mg tablet Take 60 mg by mouth four times daily. 0 11/22/2014 Active Start: 11-22-2014 take 1 tablet by kevin four times daily isosorbide dinitrate (ISORDIL, SORBITRATE) 30 mg tablet Take 1 tablet by mouth four times daily. 0 11/22/2014 Active Start: 01-20-2013 take 1 tablet by kevin once daily ISOSORBIDE DINITRATE 30 MG TABS One tablet by mouth daily ISOSORBIDE DINITRATE [id number] Parminder Tam MD Comment on above: [facility] ammonium lactate 120 mg/ml topical cream (4 sources) ammonium lactate (LAC-HYDRIN) 12 % cream Apply to affected area as needed. Active Lactobacillus acidophilus (12 sources) take 2 capsules by mouth three times daily Lactobacillus acidophilus (ACIDOPHILUS) cap Take 2 capsules by mouth three times a day. Active take 2 capsules by m outh three times daily Lactobacillus acidophilus (ACIDOPHILUS) cap Take 2 capsules by mouth three times daily. Active take 2 capsules by m outh three times daily Lactobacillus acidophilus (ACIDOPHILUS) cap Take 2 capsules by mouth three times daily. 0 Active Comment on above: Take 2 capsules by m outh three times daily. lidocaine 0.05 mg/mg medicated patch (4 sources) Antiarrhythmic, Amide Local Anesthetic apply 1 dose transdermal route every twenty-four hours lidocaine (LIDODERM) 5 % Apply 1 Patch as directed every 24 hours. Active lisinopril 40 mg oral tablet (20 sources) Angiotensin Converting Enzyme Inhibitor Start: Lisinopril 40 mg tablet Active 30 mg PO DAILY April 22, 2025 10:20am Start: 04-22-2025 Lisinopril 40 mg tablet Active 20 mg PO DAILY April 22, 2025 10:20am Start: 09-02-2023 End: 04-22-2025 take 1 tablet by mouth once daily Lisinopril 40 mg tablet Discontinued 40 mg PO DAILY September 02, 2023 1:00am April 22, 2025 10:24am Start: 11-24-2020 End: 11-24-2020 take 1 tablet by mouth once daily Lisinopril 20 mg tablet Discontinued 20 mg PO DAILY November 24, 2020 2:55pm November 24, 2020 3:29pm Start: 11-24-2020 End: 11-11-2022 take 1 tablet by mouth once daily Lisinopril 40 mg tablet Discontinued 40 mg PO DAILY 90 4 November 24, 2020 1:00am November 11, 2022 5:18pm Start: 11-21-2020 End: 11-24-2020 Lisinopril 20 mg tablet Disc ontinued 30 mg PO DAILY November 21, 2020 5:09pm November 24, 2020 2:57pm Start: 11-21-2020 End: 11-24-2020 take 30 mg by mouth once daily Lisinopril Discontinued 30 MG PO DAILY November 21, 2020 4:09pm November 24, 2020 1:57pm Start: 11-21-2020 End: 11-21-2020 take 1 tablet by mouth once daily Lisinopril 20 mg tablet Discontinued 20 mg PO DAILY November 21, 2020 1:00am November 21, 2020 5:09pm Start: 12-22-2012 End: 11-24-2020 take 1 tablet by mouth once daily Lisinopril 10 MG tablet Discontinued 10 mg PO DAILY December 27, 2013 1:00am November 21, 2020 11:37am Comment on above: Take 10 mg by mouth once daily. Magnesium (2 sources) Start: 06-24-2025 take 2 tablets by mouth twice daily Magnesium 200 mg tablet Active 400 mg PO TWICE A DAY June 24, 2025 12:00am Start: 06-24-2025 take 2 tablets by mo [facility] once daily Magnesium 200 mg tablet Active 400 mg PO daily June 24, 2025 12:00am magnesium oxide 400 mg oral tablet (5 sources) Start: 03-08-2025 take 1 tablet by mouth every twelve hours magnesium oxide (MAG-OX) 400 mg (241.3 mg magnesium) tablet Take 1 tablet by mouth every 12 hours. 03/08/2025 Active Start: 08-19-2014 End: 02-29-2016 take 1 tablet by mouth once daily MAGNESIUM OXIDE 400 MG CAPS One tablet by mouth daily MAGNESIUM OXIDE [id number] Parminder Tam MD Start: 12-22-2012 End: 07-26-2013 take 1 tablet by mouth twice daily MAG-OXIDE 400 MG TABS One tablet by mouth twice daily MAGNESIUM OXIDE [id number] Savana Goldsmith PA-C melatonin 5 mg oral capsule (20 sources) Start: 09-03-2022 take 1 capsule by mouth at bedtime as needed for sleep Melatonin 5 mg capsule Active 5 mg PO AT BEDTIME as needed for Sleep September 03, 2022 1:00am Start: 08-19-2014 End: 07-01-2018 take 1 tablet by mouth at bedtime as needed Melatonin 3 mg tablet Discontinued 3 mg PO AT BEDTIME as needed March 13, 2018 4:39pm July 01, 2018 3:14pm MELATONIN ORAL T khalida by mouth. Active MELATONIN ORAL T khalida by mouth. 0 Active Comment on above: Take by mouth. 24 hr metoprolol succinate 50 mg extended release oral tablet (20 sources) beta-Adrenergic Daniele Start: 08-21-2021 take 2 tablets by mouth twice daily Metoprolol Succinate 50 mg tablet extended release 24 hr Active 25 mg PO TWICE A DAY August 21, 2021 10:47am Start: 08-21-2021 take 25 mg by mouth twice madisyn y Metoprolol Succinate Active 25 MG PO TWICE A DAY August 21, 2021 9:47am Start: 11-24-2020 End: 08-21-2021 take 1 tablet by mouth twice daily Metoprolol Succinate 50 mg tablet extended release 24 hr Discontinued 50 mg PO TWICE A DAY November 24, 2020 1:00am August 21, 2021 10:47am Start: 11-21-2020 End: 11-24-2020 take 1 tablet by mouth twice daily Metoprolol Tartrate 50 mg tablet Discontinued 50 mg PO TWICE A DAY November 21, 2020 1:00am November 24, 2020 2:58pm Start: 03-13-2018 End: 08-10-2020 take 1 tablet by mouth once daily Metoprolol Succinate 25 mg tablet extended release 24 hr Discontinued 25 mg PO daily March 13, 2018 12:00am August 10, 2020 9:26am take 1 tablet by kevin th twice daily metoprolol succinate ER (TOPROL XL) 25 mg 24 hr tablet Take 50 mg by mouth two times a day. Active take 1 tablet by kevin th twice daily metoprolol succinate ER (TOPROL XL) 25 mg 24 hr tablet Take 25 mg by mouth twice daily. 0 Active Comment on above: Take 25 mg by mouth twice daily. olopatadine 2 mg/ml ophthalmic solution (20 sources) Histamine-1 Receptor Inhibitor Start: 08-29-2020 Olopatadine (Pataday) 0.2 % drops Active 1 NMA OPHTHALMIC DAILY August 29, 2020 1:00am Start: 03-13-2018 End: 11-10-2019 Olopatadine (Pazeo) 0.7 % dr ops Discontinued 1 NMA OPHTHALMIC daily March 13, 2018 12:00am November 10, 2019 2:59pm Start: 01-20-2013 PATANOL 0.1 % SOLN eye gtts as directed OLOPATADINE HCL [id number] Parminder Tam MD olopatadine HCl (PATADAY OPHTHALMIC) Use in eyes. Active olopatadine HCl (PATADAY OPHTHALMIC) Use in eyes. 0 Active Comment on above: Use in eyes. [place]-3 Fatty Acids-Vitamin E (FISH OIL) 1,000 mg cap (12 sources) [place]-3 Fatty Ac ids-Vitamin E (FISH OIL) 1,000 mg cap Take 1 capsule by mouth. Active [place]-3 Fatty Ac ids-Vitamin E (FISH OIL) 1,000 mg cap Take 1 capsule by mouth. 0 Active Comment on above: Take 1 capsule by [facility]. omeprazole 40 mg delayed release oral capsule (17 sources) Proton Pump Inhibitor Start: 03-04-2023 take 1 capsule by mouth twice daily omeprazole (PRILOSEC) 40 mg capsule Take 40 mg by mouth twice daily. 03/04/2023 Active Start: 02-21-2023 take 1 capsule by [facility] once daily Omeprazole 40 mg capsule,delayed release(DR/EC) Active 40 mg PO DAILY February 21, 2023 12:00am Start: 01-20-2013 End: 08-19-2014 take 1 tablet by mouth once daily OMEPRAZOLE 20 MG CPDR One tablet by mouth daily OMEPRAZOLE [id number] Parminder Tam MD Start: 12-22-2012 take 1 tablet by [facility] once daily PRILOSEC 40 MG CPDR One tablet by mouth daily OMEPRAZOLE [id number] Cindy Bobo RN Comment on above: Take 40 mg by mouth twice daily. orphenadrine citrate 100 mg oral tablet (4 sources) Muscle Relaxant ORPHENADRINE CIT RATE ORAL Take 100 mg by mouth. Active polymyxin b 28419 unt/ml / trimethoprim 1 mg/ml ophthalmic solution (1 source) Dihydrofolate Reductase Inhibitor Antibacterial, Polymyxin-class Antibacterial Start: 5 End: take 1 drop(s) into the eye(s) four times daily polymyxin B-trimethoprim (POLYTRIM) 10,000 unit- 1 mg/mL ophthalmic solution Use 1 Drop in both eyes four times daily for 7 days. 5 mL 01/18/2025 01/25/2025 Active POTASSIUM-99 ORAL (5 sources) POTASSIUM-99 ORA L Take by mouth. Active propylene glycol 6 mg/ml ophthalmic solution (20 sources) Start: 4 End: propylene glycoL, PF, (SYSTANE COMPLETE PF) 0.6 % drop Use 1 Drop in both eyes four times daily. 30 mL 3 09/20/2024 12/19/2024 Active Start: 09-03-2022 take 0.6 drop(s) int o the eye(s) once daily as needed Propylene Glycol (Systane Balance) 0.6 % drops Active 1 NMA OPHTHALMIC DAILY as needed for Dry Eyes September 03, 2022 1:00am Start: 09-03-2022 take 0.6 drop(s) int o the eye(s) once daily Propylene Glycol (Systane Balance) 0.6 % drops Active 1 DRP OPHTHALMIC DAILY September 03, 2022 12:00am End: 10-18-2024 propylene glycol (SYSTANE CO MPLETE OPHTHALMIC) Use in eyes. 10/18/2024 Discontinued (Course of therapy completed) propylene glycol (SYSTANE COMPLETE OPHTHALMIC) Use in eyes. Active propylene glycol (SYSTANE COMPLETE OPHTHALMIC) Use in eyes. 0 Active Comment on above: Use in eyes. vit A/vit C/vit E/zinc/coppe r (PRESERVISION AREDS ORAL) (12 sources) vit A/vit C/vit E/zinc/copper (PRESERVISION AREDS ORAL) Take by mouth. Active vit A/vit C/vit E/zinc/copper (PRESERVISION AREDS ORAL) Take by mouth. 0 Active Comment on above: Take by mouth. Completed/Discontinued Medications Medication Drug Class(es) Dates Sig (Normalized) Sig (Original) acetaminophen 325 mg / oxyCODONE hydrochloride 5 mg oral tablet (8 sources) Opioid Agonist Start: 01-07-2023 End: 09-02-2023 Oxycodone-Acetami nophen (Endocet) 5-325 mg tablet Discontinued 1 {tbl} PO EVERY 6 HOURS as needed for pain 12 3 0 January 07, 2023 September 02, 2023 12:03pm Calculus of kidney Calculus of kidney amLODIPine 10 mg oral tablet (20 sources) Dihydropyridine Calcium Channel Daniele Start: 11-24-2020 End: 08-21-2021 take 1 tablet by mouth once daily Amlodipine 10 mg tablet Discontinued 10 mg PO DAILY 30 0 November 24, 2020 3:38pm August 21, 2021 10:45am Start: 11-22-2014 take 2 tablets by mo [facility] once daily amLODIPine (NORVASC) 5 mg tablet Take 10 mg by mouth once daily. 0 11/22/2014 Active Start: 01-20-2013 End: 08-10-2020 take 1 tablet by mouth once daily Amlodipine 5 MG tablet Discontinued 5 mg PO DAILY January 12, 2017 12:00am October 06, 2018 3:33pm Comment on above: Take 10 mg by mouth once daily. atenolol 25 mg oral tablet (11 sources) beta-Adrenergic Daniele Start: 12-22-19 13 End: 03-13-20 18 take 1 tablet by mouth once daily Atenolol 25 MG tablet Discontinued 25 mg PO DAILY December 27, 2013 1:00am March 13, 2018 4:41pm azithromycin 250 mg oral tablet (10 sources) Macrolide Antimicrobial Start: 09-03-20 End: 09-02-20 23 take 1 tablet by mouth once daily Azithromycin 250 mg tablet Discontinued 250 mg PO DAILY September 03, 2022 1:00am September 02, 2023 12:03pm carvedilol 6.25 mg oral tablet (10 sources) alpha-Adrenergic Daniele, beta-Adrenergic Daniele Start: 10-11-20 20 End: 11-21-19 21 Carvedilol 6.25 MG tablet Discontinued 6.25 mg PO TWICE A DAY 60 1 October 11, 2020 1:00am November 21, 2020 11:37am Hold for heart rate less than 60 or systolic blood pressure less than 100 or dizziness chlorthalidone 25 mg oral tablet (12 sources) Thiazide-like Diuretic Start: 04-08-20 End: 04-22-20 25 take 1 tablet by mouth every other day Chlorthalidone 25 mg tablet Discontinued 25 mg PO every other day September 02, 2023 1:00am April 22, 2025 10:22am GLUCOSAMINE-CHONDROITI N CAPS (2 sources) Start: 08-29-20 15 End: 08-30-20 16 take 1 tablet by mouth once daily GLUCOSAMINE-CHONDROIT IN CAPS One tablet by mouth daily GLUCOSAMINE-CHONDROIT IN CAPS [id number] Savana Goldsmith PA-C Start: 08-29-2015 take 1 tablet by kevin th once daily GLUCOSAMINE-CHONDROITIN CAPS One tablet by mouth daily GLUCOSAMINE-CHONDROITIN CAPS [id number] Savana Goldsmith PA-C clopidogrel 75 mg oral tablet (20 sources) P2Y12 Platelet Inhibitor Start: 12-22-2012 End: 04-22-2025 take 1 tablet by mouth once daily Clopidogrel 75 MG tablet Discontinued 75 mg PO DAILY January 12, 2017 12:00am April 22, 2025 10:22am Comment on above: Take 1 tablet by kevin th once daily. Dextrin (Easy Fiber) 3 gram/3.5 gram powder (10 sources) Start: 07-01-2018 End: 03-19-2019 Dextrin (Easy Fiber) 3 gram/3.5 gram powder Discontinued 3 g PO DAILY July 01, 2018 12:00am March 19, 2019 9:19am Start: 07-01-2018 End: 03-19-2019 Dextrin (Easy Fiber) 3 gram/ 3.5 gram powder Discontinued 3 GM PO DAILY July 01, 2018 12:00am March 19, 2019 9:19am Start: 07-01-2018 End: 03-19-2019 Dextrin (Easy Fiber) 3 gram/ 3.5 gram powder Discontinued 3 GM PO DAILY June 30, 2018 11:00pm March 19, 2019 8:19am 24 hr dilTIAZem hydrochloride 120 mg extended release oral capsule (20 sources) Calcium Channel Daniele Start: 09-03-2022 End: 06-24-2025 take 1 capsule by mouth twice daily Diltiazem Hcl 120 mg capsule,extended release 24hr Discontinued 120 mg PO TWICE A DAY September 03, 2022 1:00am June 24, 2025 2:08pm Start: 05-05-2021 dilTIAZem CD ( CARDIZEM CD, CARTIA XT) 120 mg 24 hr capsule 05/05/2021 Active esomeprazole 40 mg delayed release oral capsule (13 sources) Proton Pump Inhibitor Start: 08-30-2016 End: 07-01-2018 take 1 capsule by mouth once daily Esomeprazole Magnesium 40 MG capsule Discontinued 40 mg PO DAILY January 12, 2017 12:00am July 01, 2018 3:13pm Start: 08-19-2014 End: 02-29-2016 take 1 tablet by mouth once daily NEXIUM 40 MG CPDR One tablet by mouth daily ESOMEPRAZOLE MAGNESIUM [id number] Parminder Tam MD famotidine 20 mg oral tablet (20 sources) Histamine-2 Receptor Antagonist Start: 11-08-2020 End: 09-02-2023 take 1 tablet by mouth twice daily Famotidine 20 mg tablet Discontinued 20 mg PO TWICE A DAY November 24, 2020 1:00am September 02, 2023 12:03pm fish oil (2 sources) Start: 08-19-2014 take 1 tablet by mouth once daily FISH OIL CAPS One tablet by mouth daily [place]-3 FATTY ACIDS CAPS [id number] Savana Goldsmith PA-C Start: 08-19-2014 End: 08-30-2016 take 1 tablet by mouth once daily FISH OIL CAPS One tablet by mouth daily [place]-3 FATTY ACIDS CAPS [id number] Savana Goldsmith PA-C fluorescein sodium 2.5 mg/ml / proparacaine hydrochloride 5 mg/ml ophthalmic solution (3 sources) Diagnostic Dye, Local Anesthetic Start: 10-18-2024 End: 10-18-2024 fluorescein-proparacaine 1 Drop eye drops Start: 10-18-2024 End: 10-18-2024 1 Drop, BOTH EYES, ONCE, 1 d ose, On Fri10/18/24 at 1430, FOR THE EYE. REFRIGERATE Start: 05-20-2022 End: 05-20-2022 fluorescein-proparacaine 1 D rop eye drops (FLUCAINE, FLUORACAINE) GUAR GUM (1 source) Start: 08-19-2014 BENEFIBER PACK Take as directed GUAR GUM Savana Goldsmith PA-C hydroCHLOROthiazide 25 mg oral tablet (20 sources) Thiazide Diuretic Start: 09-03-2022 End: 11-11-2022 take 1 tablet by mouth once daily Hydrochlorothiazide 25 mg tablet Discontinued 25 mg PO DAILY September 03, 2022 12:01pm November 11, 2022 5:16pm Start: 12-28-2020 End: 09-03-2022 Hydrochlorothiazide 25 mg ta blet Discontinued 12.5 mg PO DAILY December 28, 2020 12:43pm September 03, 2022 12:04pm Start: 12-28-2020 End: 09-03-2022 take 12.5 mg by mouth once daily Hydrochlorothiazide Discontinued 12.5 MG PO DAILY December 28, 2020 11:43am September 03, 2022 11:04am Start: 11-24-2020 End: 12-28-2020 take 1 tablet by mouth once daily Hydrochlorothiazide 25 mg tablet Discontinued 25 mg PO DAILY November 24, 2020 1:00am December 28, 2020 12:43pm Start: 03-13-2018 End: 03-17-2018 take 1 capsule by mouth once daily Hydrochlorothiazide 12.5 mg capsule Discontinued 12.5 mg PO daily 90 90 0 March 13, 2018 12:00am March 17, 2018 10:33am Start: 08-30-2016 take 1 tablet by kevin once daily HYDROCHLOROTHIAZIDE 12.5 MG TABS One tablet by mouth daily HYDROCHLOROTHIAZIDE [id number] Savana Goldsmith PA-C Start: 12-27-2013 End: 03-13-2018 Hydrochlorothiazide 25 MG ta blet Discontinued 12.5 mg PO DAILY December 27, 2013 1:00am March 13, 2018 4:40pm Start: 12-27-2013 End: 03-13-2018 take 12.5 mg by mouth once daily Hydrochlorothiazide Discontinued 12.5 MG PO DAILY December 27, 2013 12:00am March 13, 2018 3:40pm Start: 01-20-2013 End: 02-29-2016 take 1 tablet by mouth once daily HYDROCHLOROTHIAZIDE 25 MG TABS One tablet by mouth daily HYDROCHLOROTHIAZIDE [id number] Parminder Tam MD Comment on above: Take 12.5 mg by mout h once daily. 24 hr isosorbide mononitrate 60 mg extended release oral tablet (20 sources) Start: 07-01-2018 End: 08-10-2020 take 1 tablet by mouth once daily, then take 1 tablet by mouth every twenty-four hours Isosorbide Mononitrate 60 mg tablet extended release 24 hr Discontinued 60 mg PO DAILY August 10, 2020 9:27am August 10, 2020 9:28am Start: 12-27-2013 End: 07-01-2018 take 1 tablet by mouth four times daily, then take 1 tablet by mouth every twenty-four hours Isosorbide Mononitrate 30 MG tablet extended release 24 hr Discontinued 30 mg PO 4 TIMES DAILY December 27, 2013 1:00am July 01, 2018 3:44pm Start: 07-26-2013 take 1 tablet by mouth once da bill ISOSORBIDE MONONITRATE ER 30 MG [id number] One tablet by mouth daily ISOSORBIDE MONONITRATE [id number] Savana Goldsmith PA-C losartan potassium 100 mg oral tablet (9 sources) Angiotensin 2 Receptor Daniele Start: 11-11-2022 End: 09-02-2023 take 1 tablet by mouth once daily Losartan 100 mg tablet Discontinued 100 mg PO DAILY November 11, 2022 1:00am September 02, 2023 12:03pm nitroglycerin 0.4 mg sublingual tablet (20 sources) Nitrate Vasodilator Start: 07-01-2018 End: 06-24-2025 Nitroglycerin 0.4 mg tablet, sublingual Discontinued 0.4 mg SL every 5 to 15 minutes as needed for chest pain 18 01September 25, 2020 11:37am June 24, 2025 2:33pm until response; do not exceed 3 doses per episode nystatin 100 unt/mg topical powder (20 sources) Polyene Antifungal Start: 11-10-2019 End: 11-24-2020 Nystatin 100,000 unit/gram powder Discontinued TOPICAL November 10, 2019 1:00am November 24, 2020 2:57pm Start: 11-10-2019 End: 11-24-2020 nystatin (MYCOSTATIN) powder 11/10/2019 Active Comment on above: Nystatin Nystatin Ac tive TOPICAL November 10, 2019 2:57pm 11-10-2019 [facility] ([id number]) [place]-3 Fatty Acids (7 sources) Start: 01-12-2017 End: 03-13-2018 take 1000 mg by mouth once daily [place]-3 Fatty Acids Discontinued 1000 MG PO DAILY January 12, 2017 12:00am March 13, 2018 4:41pm Start: 01-12-2017 End: 03-13-2018 take 1000 mg by mouth once daily [place]-3 Fatty Acids Discontinued 1000 MG PO DAILY January 11, 2017 11:00pm March 13, 2018 3:41pm [place]-3 Fatty Acids 1,000 MG capsule (3 sources) Start: 01-12-2017 End: 03-13-2018 take 1 capsule by mouth once daily [place]-3 Fatty Acids 1,000 MG capsule Discontinued 1000 mg PO DAILY January 12, 2017 12:00am March 13, 2018 4:41pm ondansetron 4 mg disintegrating oral tablet (8 sources) Serotonin-3 Receptor Antagonist Start: 01-07-2023 End: 06-28-2025 take 1 tablet by mouth every eight hours as needed for nausea Ondansetron 4 mg tablet,disintegrat ing Discontinued 4 mg PO EVERY 8 HOURS NEEDED as needed for Nausea 14 0 January 07, 2023 12:00am June 28, 2025 4:20pm pantoprazole 40 mg delayed release oral tablet (20 sources) Proton Pump Inhibitor Start: 10-06-2018 End: 11-24-2020 take 1 tablet by mouth twice daily Pantoprazole 40 mg tablet,delayed release (DR/EC) Discontinued 40 mg PO TWICE A DAY October 06, 2018 3:28pm November 24, 2020 2:57pm Start: 07-01-2018 End: 10-06-2018 take 1 tablet by mouth once daily Pantoprazole 40 mg tablet,delayed release (DR/EC) Discontinued 40 mg PO DAILY July 01, 2018 12:00am October 06, 2018 3:29pm Comment on above: Take 40 mg by mouth once daily. phenylephrine hydrochloride 25 mg/ml ophthalmic solution (2 sources) alpha-1 Adrenergic Agonist Start: 10-18-2024 End: 10-18-2024 PHENYLephrine 2.5 % 1 Drop (AK-DILATE, DAVID-SYNEPHRINE) Start: 10-18-2024 End: 10-18-2024 1 Drop, BOTH EYES, ONCE, 1 d ose, On 10/18/24 at 1430, FOR OPHTHALMIC USE ONLY PROTECT FROM LIGHT polyethylene glycol 400 4 mg /ml / propylene glycol 3 mg/ml ophthalmic solution (10 sources) Start: 08-29-2020 End: 09-03-2022 Peg 400-Propylene Glycol (Systane (Propylene Glycol)) 0.4-0.3 % drops Discontinued 1 NMA OPHTHALMIC 2 to 3 times per day as needed for eyes August 29, 2020 1:00am September 03, 2022 12:00pm Start: 08-29-2020 End: 09-03-2022 Peg 400-Propylene Glycol (Sy stane (Propylene Glycol)) 0.4-0.3 % drops Discontinued 1 DRP OPHTHALMIC 2 to 3 times per day August 29, 2020 12:00am September 03, 2022 11:00am polymyxin B sulf/trimethoprim (POLYTRIM OPHTHALMIC) (1 source) End: 09-20-2024 take 1 drop(s) into the eye(s) four times daily polymyxin B sulf/trimethoprim (POLYTRIM OPHTHALMIC) Use 1 Drop in eyes four times daily. 09/20/2024 Discontinued (Course of therapy completed) potassium chloride 20 meq extended release oral tablet (19 sources) Start: 04-22-2025 End: 06-24-2025 take 1 tablet by mouth once daily Potassium Chloride (K-Tab) 20 mEq tablet extended release Discontinued 20 meq PO daily April 22, 2025 12:00am June 24, 2025 2:08pm Start: 09-11-2024 KLOR-CON M20 2 0 mEq tablet 09/11/2024 Active Start: 07-02-2018 End: 11-10-2019 Potassium Chloride (Klor-Con M20) 20 mEq tablet,ER particles/crystals Discontinued 20 meq PO DAILY 23 01July 02, 2018 12:00am November 10, 2019 3:11pm propylene glycol/peg 400 (BL INK TEARS LUBRICATING) Eye Drops (9 sources) End: 10-18-2024 propylene glycol/peg 400 (BL INK TEARS LUBRICATING) Eye Drops Use in both eyes. 10/18/2024 Discontinued (Course of therapy completed) propylene glycol /peg 400 (BLINK TEARS LUBRICATING) Eye Drops Use in both eyes. Active propylene glycol /peg 400 (BLINK TEARS LUBRICATING) Eye Drops Use in both eyes. 0 Active Comment on above: Use in both eyes. Psyllium (10 sources) Start: 03-19-2019 End: 09-03-2022 Psyllium (Fiber Smooth) powder Discontinued 1 tbsp PO DAILY March 19, 2019 12:00am September 03, 2022 12:00pm Start: 03-19-2019 End: 09-03-2022 Psyllium (Fiber Smooth) powd er Discontinued 1 tbsp PO DAILY March 18, 2019 11:00pm September 03, 2022 11:00am raNITIdine 300 mg oral capsule (2 sources) Histamine-2 Receptor Antagonist Start: 02-29-2016 End: 08-30-2016 take 1 tablet by mouth once daily RANITIDINE HCL 300 MG CAPS One tablet by mouth daily RANITIDINE HCL [phone] Parminder Tam MD sucralfate 100 mg/ml oral suspension (20 sources) Aluminum Complex Start: 06-24-2025 End: 06-28-2025 take 1 mL by mouth four times daily Sucralfate (Carafate) 100 mg/mL suspension Discontinued 10 mL PO .qid June 24, 2025 12:00am June 28, 2025 4:20pm Start: 03-08-2023 take 1 tablet by kevin th four times daily before mealtime sucralfate (CARAFATE) 1 gram tablet TAKE 1 TABLET BY MOUTH 4 TIMES DAILY BEFORE MEAL(S) 03/08/2023 Active Start: 02-21-2023 End: 09-02-2023 take 1 tablet by mouth twice daily Sucralfate 1 gram tablet Discontinued 1 g PO TWICE A DAY 30 1 February 21, 2023 12:00am September 02, 2023 12:04pm Start: 01-12-2017 End: 03-13-2018 take 1 g by mouth four times daily Sucralfate 1 GM/10 ML suspension Discontinued 1 g PO 4 TIMES DAILY 120 0 January 12, 2017 12:00am March 13, 2018 4:41pm Comment on above: TAKE 1 TABLET BY KEVIN 4 TIMES DAILY BEFORE MEAL(S) ticagrelor 90 mg oral tablet (1 source) Start: 12-22-19 13 take 1 tablet by mouth twice daily BRILINTA 90 MG TABS One tablet by mouth twice daily TICAGRELOR [id number] Cindy Bobo RN triamcinolone acetonide 0.25 mg/ml topical cream (2 sources) Corticosteroid Start: 01-21-20 13 End: 02-29-20 TRIAMCINOLONE ACETONIDE 0.025 % CREA apply topically as directed TRIAMCINOLONE ACETONIDE [id number] Parminderisaak Tam MD tropicamide 10 mg/ml ophthalmic solution (3 sources) Anticholinergic Start: 10-18-20 End: 10-18-20 tropicamide 1 % 1 Drop (MYDRIACYL) Start: 10-18-2024 End: 10-18-2024 1 Drop, BOTH EYES, ONCE, 1 d ose, On Fri10/18/24 at 1430, FOR THE EYE Start: 05-28-2023 End: 05-28-2023 tropicamide 0.5 % 1 Drop (MY DRIACYL) vit C,E,zinc,Tg-depyj-1-lutein-zeaxanthin 250 mg-2.5 mg-0.5 mg capsule (7 sources) Start: 03-19-2019 End: 08-29-2020 vit C,E,zinc,Hv-ewkul-3-lutein-zeaxanthin 250 mg-2.5 mg-0.5 mg capsule Discontinued CAP PO March 19, 2019 12:00am August 29, 2020 10:33am Start: 03-19-2019 End: 08-29-2020 vit C,E,zinc,Jk-edvqg-9-lute in-zeaxanthin 250 mg-2.5 mg-0.5 mg capsule Discontinued CAP PO March 18, 2019 11:00pm August 29, 2020 9:33am Vit C,E,Zn,Wm-Wiewt0-Sxa-Hemalatha x 250-2.5-0.5 mg capsule (3 sources) Start: 03-19-2019 End: 08-29-2020 Vit C,E,Zn,Pw-Sdxgw0-Cpv-Hemalatha x 250-2.5-0.5 mg capsule Discontinued NMA PO 0 March 19, 2019 12:00am August 29, 2020 10:33am Vit C,G-Tr-Auznt-Lutein-Zeax an (7 sources) Start: 10-10-2020 End: 11-24-2020 Vit C,D-Gz-Mrspg-Lutein-Zeax an Discontinued 1 EACH PO TWICE A DAY October 10, 2020 1:00am November 24, 2020 2:57pm Start: 10-10-2020 End: 11-24-2020 Vit C,G-Ah-Mcwlg-Lutein-Zeax an Discontinued 1 EACH PO TWICE A DAY October 10, 2020 12:00am November 24, 2020 1:57pm Vit C,S-Ha-Lvvrw-Lutein-Zeax an (Preservision Areds-2) [phone] fd-rzhu-ob-mg capsule (10 sources) Start: 08-29-2020 End: 04-22-2025 take 1 capsule by mouth twice daily at mealtime Vit C,T-Kd-Zyros-Lutein-Zeaxan (Preservision Areds-2) [phone] cy-cvwv-cc-mg capsule Discontinued 1 {tbl} PO TWICE A DAY August 29, 2020 1:00am April 22, 2025 10:24am administer with meals Start: 08-29-2020 take 1 tablet by kevin th twice daily at mealtime Vit C,O-Ng-Guqrc-Lutein-Zeaxan (Preservision Areds-2) [phone] od-gypu-wy-mg capsule Active 1 TABLET PO TWICE A DAY August 29, 2020 1:00am administer with meals Start: 08-29-2020 take 1 tablet by kevin th twice daily at mealtime Vit C,Y-Lh-Xquvy-Lutein-Zeaxan (Preservision Areds-2) [phone] ne-udmw-te-mg capsule Active 1 TABLET PO TWICE A DAY August 29, 2020 12:00am administer with meals Vit C,T-Wv-Bwibl-Lutein-Zeax an 1 EACH capsule (3 sources) Start: 10-10-2020 End: 11-24-2020 take 1 capsule by mouth twice daily Vit C,X-Er-Etoba-Lutein-Zeaxan 1 EACH capsule Discontinued 1 NMA PO TWICE A DAY October 10, 2020 1:00am November 24, 2020 2:57pm wheat dextrin 3000 mg powder for oral solution (10 sources) Start: 01-12-2017 End: 03-13-2018 Wheat Dextrin 1 EACH powder in packet Discontinued 1 NMA PO DAILY January 12, 2017 12:00am March 13, 2018 4:41pm Start: 01-12-2017 End: 03-13-2018 Wheat Dextrin Discontinued 1 EACH PO DAILY January 11, 2017 11:00pm March 13, 2018 3:41pm zolpidem tartrate 5 mg oral tablet (20 sources) gamma-Aminobutyric Acid-ergic Agonist Start: 08-19-2014 End: 03-17-2018 take 1 tablet by mouth at bedtime Zolpidem 5 mg tablet Discontinued 5 mg PO AT BEDTIME March 13, 2018 4:40pm March 17, 2018 10:10am Insomnia Start: 07-26-2013 End: 08-19-2014 ZOLPIDEM TARTRATE 10 MG TABS 1/2 tablet every night at bedtime ZOLPIDEM TARTRATE [id number] Savana Goldsmith PA-C Problems Active Problems Problem Classification Problem Date Documented Date Episodic/Chronic Abdominal pain (10 sources) Stomach ache; Translations: [Unspecified abdominal pain] Onset: 5 01-07-2023 Episodic Acute cerebrovascular disease (12 sources) Occipital cerebral infarction; Translations: [Cerebral infarction, unspecified] Onset: 1 01-19-2021 Chronic Acute myocardial infarction (11 sources) Non-ST elevation (NSTEMI) myocardial infarction; Translations: [Myocardial infarction] Onset: 3 12-22-2012 Chronic Anxiety disorders (1 source) Anxiety disorder, unspecified; Translations: [Anxiety disorder, unspecified] Onset: 5 Chronic Calculus of urinary tract (15 sources) Kidney stone; Translations: [Calculus of kidney] 01-07-2023 Episodic Cardiac dysrhythmias (10 sources) Paroxysmal atrial fibrillation; Translations: [Paroxysmal atrial fibrillation] Onset: 5 04-22-2025 Chronic Chronic kidney disease (4 sources) Chronic kidney disease; Translations: [Chronic kidney disease, stage 3a] Onset: 4 Coronary atherosclerosis and other heart disease (20 sources) Atherosclerotic heart disease of [place] coronary artery without angina pectoris; Translations: [Coronary arteriosclerosis] Onset: 3 02-29-2016 Chronic Deficiency and other anemia (1 source) Anemia in chronic kidney disease; Translations: [Anemia in chronic kidney disease] Onset: 4 Chronic Diabetes mellitus with complications (2 sources) Type 2 diabetes mellitus with other specified complication; Translations: [Type 2 diabetes mellitus with other specified complication] Onset: 4 Chronic Disorders of lipid metabolism (20 sources) Hyperlipidemia; Translations: [Hyperlipidemia, unspecified] Onset: 3 12-22-2012 Chronic Esophageal disorders (6 sources) Chest pain; Translations: [Gastro-esophageal reflux disease without esophagitis] 02-21-2023 Chronic Essential hypertension (20 sources) Hypertensive disorder; Translations: [Essential hypertension] Onset: 3 12-22-2012 Chronic Glaucoma (16 sources) Preglaucoma, unspecified, bilateral; Translations: [Preglaucoma, unspecified] Onset: 7 Chronic Hypertension with complications and secondary hypertension (3 sources) Hypertensive chronic kidney disease with stage 1 through stage 4 chronic kidney disease, or unspecified chronic kidney disease; Translations: [Hypertensive chronic kidney disease with stage 1 through stage 4 chronic kidney disease, or unspecified chronic kidney disease] Onset: 4 Chronic Inflammation; infection of eye (except that caused by tuberculosis or sexually transmitteddisease) (20 sources) Keratoconjunctivitis sicca; Translations: [Keratoconjunctivitis sicca, not specified as Sjogren's, bilateral] Onset: 7 05-13-2017 Chronic Nausea and vomiting (7 sources) Nausea; Translations: [Nausea] 01-07-2023 Episodic Nonspecific chest pain (10 sources) Precordial pain; Translations: [Chest pain] Onset: 3 Resolved: 6 12-21-2012 Episodic Nutritional deficiencies (1 source) Vitamin D deficiency, unspecified; Translations: [Vitamin D deficiency, unspecified] Onset: 5 Chronic Occlusion or stenosis of precerebral arteries (20 sources) Carotid artery occlusion; Translations: [Occlusion and stenosis of unspecified carotid artery] Onset: 9 04-12-2019 Chronic Other aftercare (1 source) Anticoagulant effect; Translations: [longterm (current) use of anticoagulants] 06-28-2025 Episodic Other and ill-defined heart disease (1 source) Cardiomegaly; Translations: [Cardiomegaly] Onset: 5 Chronic Other circulatory disease (10 sources) Stenosis of celiac artery; Translations: [Stricture of artery] 11-24-2020 Chronic Other circulatory disease (11 sources) Carotid bruit; Translations: [Other specified symptoms and signs involving the circulatory and respiratory systems] Onset: 4 08-19-2014 Episodic Other circulatory disease (10 sources) Ecchymosis; Translations: [Hemorrhage, not elsewhere classified] 12-29-2013 Episodic Other circulatory disease (1 source) Wheeze - rhonchi; Translations: [Other specified symptoms and signs involving the circulatory and respiratory systems] 08-31-2022 Episodic Other diseases of kidney and ureters (3 sources) Hydronephrosis; Translations: [Hydronephrosis with renal and ureteral calculous obstruction] 01-07-2023 Episodic Other diseases of kidney and ureters (4 sources) Hydronephrosis with renal and ureteral calculous obstruction; Translations: [Hydronephrosis with urinary obstruction due to ureteral calculus] 01-15-2023 Episodic Other diseases of veins and lymphatics (3 sources) Lymphedema; Translations: [Lymphedema, not elsewhere classified] 07-01-2024 Chronic Other ear and sense organ disorders (10 sources) Otalgia, left ear; Translations: [Left ear pain] 12-29-2013 Episodic Other endocrine disorders (1 source) Secondary hyperparathyroidism, not elsewhere classified; Translations: [Secondary hyperparathyroidism, not elsewhere classified] Onset: Chronic Other eye disorders (11 sources) Malposition of eyelashes; Translations: [Trichiasis without entropion right lower eyelid] Episodic Other eye disorders (13 sources) Bilateral trichiasis; Translations: [Trichiasis without entropion right eye, unspecified eyelid] Onset: 6 09-08-2018 Episodic Other eye disorders (2 sources) Dry eyes; Translations: [Dry eye syndrome of bilateral lacrimal glands] 09-20-2024 Episodic Other eye disorders (1 source) Trichiasis without entropion right lower eyelid; Translations: [Trichiasis of both lower eyelids] Onset: 5 Episodic Other eye disorders (1 source) Trichiasis without entropion left lower eyelid; Translations: [Trichiasis of both lower eyelids] Onset: 5 Episodic Other lower respiratory disease (10 sources) Dyspnea on exertion; Translations: [Other forms of dyspnea] 10-06-2018 Episodic Other upper respiratory infections (1 source) Acute upper respiratory infection; Translations: [Acute upper respiratory infection, unspecified] Episodic Pulmonary heart disease (17 sources) Pulmonary arterial hypertension; Translations: [Secondary pulmonary arterial hypertension] Onset: 5 03-17-2018 Chronic Residual codes; unclassified (7 sources) Hypoxia; Translations: [Idiopathic sleep related nonobstructive alveolar hypoventilation] 01-07-2023 Chronic Residual codes; unclassified (1 source) Acquired absence of other specified parts of digestive tract; Translations: [Acquired absence of other specified parts of digestive tract] Onset: 5 Episodic Retinal detachments; defects; vascular occlusion; and retinopathy (20 sources) Nonexudative age-related macular degeneration; Translations: [Nonexudative age-related macular degeneration, bilateral, early dry stage] Onset: 7 Chronic Skin and subcutaneous tissue infections (1 source) Cellulitis of back [any part except buttock]; Translations: [Cellulitis of back [any part except buttock]] Onset: 5 Episodic Unclassified (3 sources) Long-term drug therapy; Translations: [Long-term (current) use of other medications] Onset: 3 Resolved: 5 02-04-2013 Unclassified (2 sources) Placement of stent in coronary artery ; Translations: [Presence of coronary angioplasty implant and graft] Onset: 3 02-29-2016 Past or Other Problems Problem Classification Problem Date Documented Da te Episodic/Chronic Blindness and vision defects (20 sources) Bilateral hyperopia of eyes; Translations: [Hypermetropia, bilateral] Onset: 05-13-2017 Resolved: 05-14-2021 Episodic Cardiac dysrhythmias (1 source) Palpitations; Translations: [Palpitations] Onset: 08-19-2014 08-19-2014 Episodic Cataract (17 sources) Bilateral pseudophakia; Translations: [Presence of intraocular lens] Onset: 03-12-2019 Resolved: 11-26-2021 05-28-2023 Chronic Coronary atherosclerosis and other heart disease (2 sources) Presence of coronary angioplasty implant and graft; Translations: [Percutaneous transluminal coronary angioplasty status] Onset: 12-07-2012 Episodic Fluid and electrolyte disorders (3 sources) Hypokalemia; Translations: [Hypokalemia] Onset: 12-28-2024 Episodic Inflammation; infection of eye (except that caused by tuberculosis or sexually transmitteddisease) (17 sources) Allergic conjunctivitis; Translations: [Acute atopic conjunctivitis, unspecified eye] Onset: 05-13-2017 05-13-2017 Episodic Intestinal infection (12 sources) Infection caused by Helicobacter pylori; Translations: [Other specified bacterial intestinal infections] Onset: 12-10-2014 12-10-2014 Episodic Other eye disorders (8 sources) H/O: L cataract extraction; Translations: [Cataract extraction status, left eye] Onset: 04-23-2019 Resolved: 05-14-2021 05-14-2021 Episodic Unclassified (2 sources) Body mass index (BMI) 26.0-26.9, adult; Translations: [Body mass index (BMI) 25.0-25.9, adult] Onset: 08-29-2015 08-30-2016 Episodic Unclassified (1 source) Percutaneous transluminal coronary angioplasty ; Translations: [Coronary angioplasty status] Onset: 12-22-2012 12-22-2012 Results Test Name Value Interpretation Reference Range Facility Absolute lymphocyte countOrd ered By: Camden Hernandez on 06-28-2025 Lymphocytes Auto (Unsp spec) [#/Vol] 1.09 10*3/uL 0.83-4.51 [facility] Absolute neutrophil countOrd ered By: Camden Hernandez on 06-28-2025 Neutrophils (Bld) [#/Vol] 2.5 10*3/uL 2.0-7.7 [facility] Anion gap in Serum or Plasma Ordered By: Camden Hernandez on 06-28-2025 Anion gap [Moles/Vol] 11 mmol/L 5-15 [facility] Automated lymphocyte count a s percentage of total leukocytesOrdered By: Camden Hernandez on 06-28-2025 Lymphocytes/100 WBC Auto (Unsp spec) 26.7 % 19-41 [facility] BUN/creatinine ratioOrdered By: Camden Hernandez on 06-28-2025 Urea nitrogen/Creatinine [Mass ratio] 16.7 mg/mg 10-20 [facility] Basophil percentageOrdered B y: Camden Hernandez on 06-28-2025 Basophils/100 WBC (Bld) 1.5 % High 0-1 [facility] Carbon dioxide, total [Moles /volume] in Central venous bloodOrdered By: Camden Hernandez on 06-28-2025 CO2 [Moles/Vol] 27.2 mmol/L 21.0-32.0 [facility] Chloride assayOrdered By: Danilo Hernandez on 06-28-2025 Chloride [Moles/Vol] 104 mmol/L 98-108 [facility] Eosinophil percentageOrdered By: Camden Hernandez on 06-28-2025 Eosinophils/100 WBC (Bld) 1.2 % 0-5 [facility] Erythrocyte distribution wid th ratioOrdered By: Camden Hernandez on 06-28-2025 Erythrocyte distribution width (RBC) [Ratio] 15.0 % High 11.6-14.6 [facility] Erythrocyte distribution wid th standard deviationOrdered By: Camden Hernandez on 06-28-2025 Erythrocyte distribution width (RBC) [Ratio] 50.8 fl High 35.1-43.9 [facility] Glomerular filtration rate ( GFR) estimation/1.73 sq m using serum, plasma, or whole bOrdered By: Camden Hernandez on 06-28-2025 GFR/1.73 sq M.predicted among non-blacks MDRD (S/P/Bld) [Vol rate/Area] 57 mL/min/{1.73_m2} Low >60 [facility] Comment on above: mL/min/1.73m2 CKD-EP I Creatinine Equation (2020) Hematocrit Auto (Bld) [Volum e fraction]Ordered By: Camden Hernandez on 06-28-2025 Hematocrit (Bld) [Volume fraction] 39.5 % 37-47 [facility] Hemoglobin measurementOrdere d By: Camden Hernandez on 06-28-2025 Hemoglobin (Bld) [Mass/Vol] 12.6 g/dL 12.0-15.0 [facility] Immature granulocytes/100 WB C Auto (Bld)Ordered By: Camden Hernandez on 06-28-2025 Immature granulocytes/100 WBC (Bld) 0.200 % 0.0-0.9 [facility] Comment on above: IG% - Immature Granu locytes (promyelocytes, myelocytes and metamyelocytes) > 1% indicates that a LEFT SHIFT is Present. International normalized rat io (INR) calculationOrdered By: Camden Hernandez on 06-28-2025 INR Coag (Bld) [Relative time] 1.3 {INR} [facility] MCV (mean corpuscular volume ) determinationOrdered By: Camden Hernandez on 06-28-2025 MCV (RBC) [Entitic vol] 92.1 fL 81-99 [facility] Mean corpuscular hemoglobin (MCH) determinationOrdered By: Camden Hernandez on 06-28-2025 MCH (RBC) [Entitic mass] 29.4 pg 27.0-32.0 [facility] Mean corpuscular hemoglobin concentration (MCHC) determinationOrdered By: Camden Hernandez on 06-28-2025 MCHC (RBC) [Mass/Vol] 31.9 g/dL Low 32-36 [facility] Mean platelet volume determi nationOrdered By: Camden Hernandez on 06-28-2025 Platelet mean volume (Bld) [Entitic vol] 11.1 fL 6.2-12.0 [facility] Monocyte percentageOrdered B y: Camden Hernandez on 06-28-2025 Monocytes/100 WBC (Bld) 9.0 % 0-10 [facility] Neutrophil percentageOrdered By: Camden Hernandez on 06-28-2025 Neutrophils/100 WBC (Bld) 61.4 % 47-70 [facility] Nucleated red blood cell per centageOrdered By: Camden Hernandez on 06-28-2025 Nucleated RBC/100 WBC (Bld) [Ratio] 0 % 0-5 [facility] Platelet countOrdered By: Danilo Hernandez on 06-28-2025 Platelets (Bld) [#/Vol] 137 10*3/uL Low 150-450 [facility] Potassium measurement (mass/ volume)Ordered By: Camden Hernandez on 06-28-2025 Potassium (Unsp spec) [Mass/Vol] 3.5 mmol/L 3.3-5.1 [facility] Prothrombin timeOrdered By: Camden Hernandez on 06-28-2025 PT Coag (PPP) [Time] 16.6 s High 11.7-14.9 [facility] RBC Auto (Bld) [#/Vol]Ordere d By: Camden Hernandez on 06-28-2025 RBC (Bld) [#/Vol] 4.29 10*6/uL 4.2-5.4 [facility] Serum creatinine measurement (mass/volume)Ordered By: Camden Hernandez on 06-28-2025 Creatinine [Mass/Vol] 0.98 mg/dL 0.70-1.20 [facility] Serum glucose measurement (m ass/volume)Ordered By: Camden Hernandez on 06-28-2025 Glucose [Mass/Vol] 119 mg/dL High 70-99 [facility] Serum or plasma calcium greg urement (mass/volume)Ordered By: Camden Hernandez on 06-28-2025 Calcium [Mass/Vol] 9.3 mg/dL 7.6-11.0 [facility] Serum or plasma urea nitroge n measurement (mass/volume)Ordered By: Camden Hernandez on 06-28-2025 Urea nitrogen [Mass/Vol] 16 mg/dL 4-19 [facility] Sodium levelOrdered By: Josafat Hernandez on 06-28-2025 Sodium [Moles/Vol] 141 mmol/L 133-145 [facility] Troponin T.cardiac [Mass/vol ume] in Serum or Plasma by High sensitivity methodOrdered By: Camden Hernandez on 06-28-2025 Troponin T.cardiac High sensitivity method [Mass/Vol] 32 ng/L High <14 [facility] Troponin T.cardiac High sensitivity method [Mass/Vol] 30 ng/L High <14 [facility] White blood cell (WBC) count Ordered By: Camden Hernandez on 06-28-2025 WBC (Bld) [#/Vol] 4.1 10*3/uL Low 4.4-11.0 [facility] Cardiology Visit Reporton Cardiology Visit Report [facility] [address] [place] [address] OFFICE VISIT Date of Service: 06/24/25 MR#: [id number] Acct: [id number] Name: KIMBERLY LEE Rep #: [id number] : 1940 Provider: LAURA Michel Age/Sex: 85/F Location: [facility] Status: Signed HPI HPI History of Present Illness Details: Kimberly Lee in an 85-year-old female that presents here today for a cardiovascular follow-up. She has a history of coronary artery disease with stenting to her LAD and distal RCA in 2012. She underwent a heart catheterization in June 2018 which demonstrated normal left main coronary, LAD previously stented, diagonal vessel with ostial 30 to 40% stenosis circumflex nondominant with no significant stenosis, diffusely diseased RCA. Medical therapy was recommended. Last month, pt was in to see her PCP for a cough. She was noted to be in Afib and was sent the [facility] ER. She spent a few days there, she was started on Eliquis. I do not have these records. She tells me she is seeing a hypertension and kidney specialist in [facility]. He adjusted her medications and she has since had swelling. Pt was in the ER 06/22/25 at [facility], was noted to have GERD. She underwent an EGD done on 06/13, this was normal. She notes that the discomfort has gotten better as the day has gone on today. She does have swelling in her legs. She ambulates with a cane. Intake Vital Signs 04/22/25 07:28 06/24/25 08:08 Height 5 ft 1 in 5 ft 1 in Weight: 139 lb 135 lb BMI 26.2 25.4 BP 148/76 H 170/79 H Blood Pressure Location Lt brachial Rt brachial Position Sitting Sitting Respiration 18 18 Pulse 67 87 Pulse Source Monitor Monitor Pulse Oximetry (%) 96 95 Intake Visit Reasons: S/P POMERENE 06/22 Claims Specialist Required: No Is patient in pain?: No Allergies pantoprazole Allergy (Verified 06/24/25 14:06) Rash hydrocodone bitartrate (From Vicodin) Adverse Reaction (Verified 06/24/25 14:06) Other metronidazole Adverse Reaction (Verified 06/24/25 14:06) nausea Medications ???Medication ???Instructions ???Recorded ???Confirmed ???Type aspirin 81 mg tablet,delayed 81 mg PO DAILY@0800 12/27/1306/24 History release atorvastatin 40 mg tablet 40 mg PO QHS 12/27/13 06/24/25 His tory isosorbide mononitrate 60 mg 60 mg PO DAILY #90 tabs 08/10/20 0 06/24/25 Rx tablet,extended release 24 hr olopatadine 0.2 % eye drops 1 drp ophthalmic (eye) DAILY 08/2904/22/25 History (Pataday) metoprolol succinate 50 mg 25 mg PO BID 08/21/21 06/24/25 His tory tablet,extended release 24 hr melatonin 5 mg capsule 5 mg PO QHS PRN Sleep 09/03/22 History propylene glycol 0.6 % eye drops 1 drp ophthalmic (eye) DAILY PRN 1 11/03/21 06/24/25 History (Systane Balance) Dry Eyes ondansetron 4 mg disintegrating 4 mg PO Q8H PRN PRN Nausea #14 tab s 01/07/23 06/24/25 Rx tablet omeprazole 40 mg capsule,delayed 40 mg PO DAILY #30 caps 02/21/23 0 06/24/25 Rx release buspirone 5 mg tablet 5 mg PO BID 09/02/23 06/24/25 Hist ory cholecalciferol (vitamin D3) 125 125 mcg PO DAILY 09/02/23 06/24/25 History mcg (5,000 unit) capsule apixaban 5 mg tablet (Eliquis) 5 mg PO BID 04/22/25 06/24/25 Hist ory cetirizine 10 mg tablet (All Day 10 mg PO QDAY PRN 04/22/25 5 History Allergy (cetirizine)) clonidine HCl 0.1 mg tablet 0.1 mg PO BID PRN 04/22/25 5 History furosemide 20 mg tablet 40 mg PO DAILY 04/22/25 06/24/25 H istory lisinopril 40 mg tablet 20 mg PO DAILY 04/22/25 06/24/25 H istory magnesium 200 mg tablet 400 mg PO QDAY 06/24/25 06/24/25 H istory nitroglycerin 0.4 mg sublingual 0.4 mg sublingual Q5-15M PRN chest 06/24/25 06/24/25 Rx tablet pain #25 tabs sucralfate 100 mg/mL oral 10 ml PO .qid 06/24/25 06/24/25 Hi story suspension (Carafate) Ejection fraction %: 65 Have you fallen in the past year?: No PFSH Medical History (Updated 04/22/25 @ 10:31 by Savana Goldsmith PA, PA) PAF (paroxysmal atrial fibrillation) Kidney stones Unstable angina Bilateral carotid artery stenosis GERD (gastroesophageal reflux disease) Essential (primary) hypertension Dysphagia Celiac artery stenosis Acute right hip pain LVH (left ventricular hypertrophy) Renal cysts, acquired, bilateral History of Helicobacter pylori infection Osteoarthritis History of bacterial pneumonia Hemorrhoids Diverticulosis Secondary pulmonary arterial hypertension NSTEMI (non-ST elevated myocardial infarction) Carotid bruit HLD (hyperlipidemia) Atherosclerotic heart disease of [place] coronary artery without angina pectoris Surgical History Hx of cataract extraction History of esophagogastro (more content not included)... Normal [facility] ED MED ADMINISTRATION DETAIL on 06-23-2025 ED MED ADMINISTRATION DETAIL Normal [facility] ED NURSES CLINICAL NOTEon ED NURSES CLINICAL NOTE Normal [facility] ED ORDER SHEET (CPOE ONLY)on 06-23-2025 ED ORDER SHEET (CPOE ONLY) Normal [facility] ED PHYSICIAN CLINICAL REPORT on 06-23-2025 ED PHYSICIAN CLINICAL REPORT Normal [facility] ED SUPER BILLon 06-23-2025 ED SUPER BILL Normal [facility] ED VISIT SUMMARYon ED VISIT SUMMARY Normal [facility] ED VITALS FLOW SHEETon 06-23 ED VITALS FLOW SHEET Normal [facility] CBC + DIFFon 06-22-2025 Baso # 0.01 x10EE3/UL Normal 0.00 - 0.10 [facility] Comment on above: Performed By: #### 2 [id number] ####[facility],[address] [place] [address] Basophils/100 WBC (Bld) 0.3 % Normal 0.0 - 2.0 [facility] Comment on above: Performed By: #### 2 [id number] ####[facility],[address] [place] [address] CBC + DIFF Normal [facility] Comment on above: Result Comment: CBC- COMPLETE BLOOD COUNT Performed By: #### 2 11567 ####[place] [address] EO # 0.07 x10EE3/UL Normal 0.00 - 0.50 [facility] Comment on above: Performed By: #### 2 28587 ####[place] [address] Eosinophils/100 WBC (Bld) 1.4 % Normal 0.0 - 7.0 [facility] Comment on above: Performed By: #### 2 45972 ####[place] [address] Erythrocyte distribution width (RBC) [Ratio] 14.9 % Normal 12.0 - 15.6 [facility] Comment on above: Performed By: #### 2 64278 ####[place] [address] Hematocrit (Bld) [Volume fraction] 41.5 % Normal 34.0 - 46.0 [facility] Comment on above: Performed By: #### 2 92898 ####[place] [address] Hemoglobin (Bld) [Mass/Vol] 13.8 g/dL Normal 12.0 - 16.0 [facility] Comment on above: Performed By: #### 2 40533 ####[place] [address] Lymph # 1.23 x10EE3/UL Normal 0.80 - 2.80 [facility] Comment on above: Performed By: #### 2 26363 ####[facility],[address] [place] [address] Lymphocytes/100 WBC (Bld) 25.8 % Normal 20.0 - 45.0 [facility] Comment on above: Performed By: #### 2 63357 ####[facility],[address] [place] [address] MANUAL DIFF N/A Normal [facility] Comment on above: Performed By: #### 2 65470 ####[facility],[address] [place] [address] MCH (RBC) [Entitic mass] 30 pg Normal 27 - 33 [facility] Comment on above: Performed By: #### 2 14856 ####[facility],[address] [place] [address] MCHC 33 X10 3 Normal 32 - 36 [facility] Comment on above: Performed By: #### 2 79335 ####[place] [address] MCV (RBC) [Entitic vol] 91 fL Normal 80 - 99 [facility] Comment on above: Performed By: #### 2 54979 ####[facility],[address] [place] [address] [place] # 0.44 x10EE3/UL Normal 0.20 - 1.00 [facility] Comment on above: Performed By: #### 2 97633 ####[facility],[address] [place] [address] MONOS % 9.3 % Normal 0.0 - 10.0 [facility] Comment on above: Performed By: #### 2 06675 ####[facility],[address] [place] [address] Morphology Sam (Bld) [Interp] N/A Normal [facility] Comment on above: Performed By: #### 2 36793 ####[facility],[address] [place] [address] Neut # 3.02 x10EE3/UL Normal 1.50 - 7.10 [facility] Comment on above: Performed By: #### 2 25362 ####[facility],[address] [place] [address] Neutrophils/100 WBC (Bld) 63.3 % Normal 46.0 - 76.0 [facility] Comment on above: Performed By: #### 2 78010 ####[facility],[address] [place] [address] PLATELET 173 x10EE3/UL Normal 150 - 450 [facility] Comment on above: Performed By: #### 2 35121 ####[facility],[address] [place] [address] Platelet mean volume (Bld) [Entitic vol] 9.3 fL Normal 6.6 - 10.5 [facility] Comment on above: Result Comment: AUTO MATED DIFFERENTIAL Performed By: #### 2 29155 ####[facility],[address] [place], [place] [id number] RBC 4.54 x 10EE6/UL Normal 4.10 - 5.30 [facility] Comment on above: Performed By: #### 2 20981 ####[facility],[address] [place], [place] [id number] WBC 4.8 x 10EE3/UL Normal 4.5 - 10.8 [facility] Comment on above: Performed By: #### 2 36059 ####[facility],[address] [place], [place] [id number] CHEST 1 VIEWon 06-22-2025 CHEST 1 VIEW Normal [facility] CMP with eGFRon 06-22-2025 AGE 85 years Normal [facility] Comment on above: Performed By: #### 2 37322 ####[facility],[address] [place] [address] Albumin [Mass/Vol] 3.7 g/dL Normal 3.4 - 5.0 [facility] Comment on above: Performed By: #### 2 50783 ####[facility],[address] [place] [address]648 Albumin/Globulin [Mass ratio] 1.3 {ratio} Normal 0.9 - 1.6 [facility] Comment on above: Performed By: #### 2 74554 ####[facility],[address] [place] [address] 27630 ALK PHOS 112 U/L Normal 46 - 116 [facility] Comment on above: Performed By: #### 2 42641 ####[facility],[address] [place] [address]014 ALT [Catalytic activity/Vol] 36 U/L Normal 16 - 63 [facility] Comment on above: Performed By: #### 2 87735 ####[facility],[address] [place] [address]643 Anion gap [Moles/Vol] 11 mmol/L Normal 10 - 20 [facility] Comment on above: Performed By: #### 2 42862 ####[facility],[address] [place] [address] 88127 AST [Catalytic activity/Vol] 25 U/L Normal 13 - 39 [facility] Comment on above: Performed By: #### 2 20416 ####[facility],[address] [place] [address] 66581 B/C RATIO 14 ratio Normal 0 - 30 [facility] Comment on above: Performed By: #### 2 17884 ####[facility],[address] [place] [address] 20979 Bilirubin [Mass/Vol] 0.8 mg/dL Normal 0.2 - 1.0 [facility] Comment on above: Performed By: #### 2 25547 ####[facility],[address] [place] [address] 58127 Calcium [Mass/Vol] 9.1 mg/dL Normal 8.5 - 10.1 [facility] Comment on above: Performed By: #### 2 87696 ####[facility],[address] [place] [address] 69480 Chloride [Moles/Vol] 100 mmol/L Normal 98 - 107 [facility] Comment on above: Performed By: #### 2 07851 ####[facility],[address] [place] [address]0789 CMP with eGFR Normal [facility] Comment on above: Result Comment: COMP REHENSIVE METABOLIC PANEL Performed By: #### 2 07864 ####[facility],[address] [place] [address]3855 CO2 [Moles/Vol] 32.9 mmol/L High 21.0 - 32.0 [facility] Comment on above: Performed By: #### 2 75614 ####[facility],[address] [place] [address]9973 Creatinine [Mass/Vol] 1.12 mg/dL High 0.55 - 1.02 [facility] Comment on above: Performed By: #### 2 14356 ####[facility],[address] [place] [address] 59924 eGFR 46 ML/MINUTE Low 60 - 999 [facility] Comment on above: Performed By: #### 2 95375 ####[facility],[address] [place] [address] 27515 eGFR(AA) 56 ML/MINUTE Low 60 - 999 [facility] Comment on above: Result Comment: ACCO RDING TO THE NATIONAL KIDNEY DISEASE EDUCATION PROGRAM(NKDE), A NORMAL eGFRIS A VALUE GREATER THAN OR EQUAL TO 60 ML/MIN/1.73 SQ METERS.CHRONIC KIDNEY DISEASE: <60mL/MIN/1.73 SQ METERSKIDNEY FAILURE: <15mL/MIN/1.73 SQ METERSTHIS TEST SHOULD ONLY BE USED FOR PATIENTS 18 YEARS OF AGE AND OLDER. Performed By: #### 2 33845 ####[facility],[address] [place] [address]015 Globulin (S) [Mass/Vol] 2.9 g/dL Normal 1.5 - 3.8 [facility] Comment on above: Performed By: #### 2 24520 ####[facility],[address] [place] [address]370 Glucose [Mass/Vol] 102 mg/dL Normal 74 - 106 [facility] Comment on above: Performed By: #### 2 83133 ####[address] [address] Potassium [Moles/Vol] 3.8 mmol/L Normal 3.5 - 5.1 [facility] Comment on above: Performed By: #### 2 11083 ####[facility],[address] [place] [address]2966 Protein [Mass/Vol] 6.6 g/dL Normal 6.4 - 8.2 [facility] Comment on above: Performed By: #### 2 24122 ####[address] [address] Sodium [Moles/Vol] 140 mmol/L Normal 136 - 145 [facility] Comment on above: Performed By: #### 2 03473 ####[facility],[address] [place] [address]17 Urea nitrogen [Mass/Vol] 16 mg/dL Normal 7 - 18 [facility] Comment on above: Performed By: #### 2 67375 ####[facility],[address] [place] [address] 51580 INFLUENZA VIRUS RAPID A/Bon 06-22-2025 INFLUENZA VIRUS RAPID A/B Normal [facility] Comment on above: Performed By: #### 2 03497 ####[facility],[address] [place] [address] 36693 LACTATEon 06-22-2025 Lactate [Moles/Vol] 1.0 mmol/L Normal 0.4 - 2.0 [facility] Comment on above: Performed By: #### 2 51870 ####[facility],[address] [place] [address] 45587 LIPASEon 06-22-2025 Lipase [Catalytic activity/Vol] 21.0 U/L Normal 15.0 - 78.0 [facility] Comment on above: Result Comment: *PLE ASE NOTE THAT RANGES FOR LIPASE HAVE CHANGED OF 10/24/23 DUE TO AN ASSAYUPDATE BY THE CONTRACT NEGOTIATION SPECIALIST.THE NEW ASSAY RANGE IS 6-250 U/L, WITH A REFERENCERANGE OF 16-77 U/L. Performed By: #### 2 85158 ####[address] [address] TROPONINon 06-22-2025 HS TROPONIN <4.0 Normal 0.0 - 51.4 [facility] Comment on above: Performed By: #### 2 15776 ####[facility],[address] [place] [address] 20553 URINALYSISon 06-22-2025 Bilirubin Ql (U) Negative Normal NORMAL: NEGATIVE [facility] Comment on above: Performed By: #### 2 02856 ####[facility],[address] [place] [address] 03054 Clarity (U) clear Normal NORMAL: CLEAR [facility] Comment on above: Performed By: #### 2 15581 ####[facility],[address] [place] [address] 71724 Color (U) p.yel Normal NORMAL: YELLOW [facility] Comment on above: Performed By: #### 2 77233 ####[facility],[address] [place] [address] 00992 Glucose Ql (U) NORM Normal NORMAL: NORMAL [facility] Comment on above: Performed By: #### 2 34960 ####[facility],[address] [place], [place] [id number] Hemoglobin Ql (U) Negative Normal NORMAL: NEGATIVE [facility] Comment on above: Performed By: #### 2 66708 ####[facility],[address] [place] [address] 15336 Ketone Negative Normal NORMAL: NEGATIVE [facility] Comment on above: Performed By: #### 2 30826 ####[facility],[address] [place], [place] [address] Leukocytes Negative Normal NORMAL: NEGATIVE [facility] Comment on above: Performed By: #### 2 10349 ####[facility],[address] [place], [place] [address] Nitrite Ql (U) Negative Normal NORMAL: NEGATIVE [facility] Comment on above: Performed By: #### 2 82432 ####[facility],[address] [place] [address] pH (U) 6.5 [pH] Normal NORMAL: 5.0-8.0 [facility] Comment on above: Performed By: #### 2 13166 ####[facility],[address] [place], [place] [address] Protein Ql (U) Negative Normal NORMAL: NEGATIVE [facility] Comment on above: Performed By: #### 2 72751 ####[facility],[address] [place] [address] Sp [place] 1.010 Normal NORMAL: 1.010-1.030 [facility] Comment on above: Performed By: #### 2 91840 ####[facility],[address] [place] [address] Specimen Type R Normal [facility] Comment on above: Performed By: #### 2 77767 ####[facility],[address] [place] [address] Urinalysis dipstick W Reflex Microscopic panel (U) NOT INDICATED Normal [facility] Comment on above: Performed By: #### 2 27668 ####[facility],[address] [place] [address] 08545 Urobilinog NORM Normal NORMAL: NORMAL [facility] Comment on above: Performed By: #### 2 51688 ####[facility],[address] [place], [place] [id number] ED MED ADMINISTRATION DETAIL on 06-12-2025 ED MED ADMINISTRATION DETAIL Normal [facility] ED NURSES CLINICAL NOTEon ED NURSES CLINICAL NOTE Normal [facility] ED ORDER SHEET (CPOE ONLY)on 06-12-2025 ED ORDER SHEET (CPOE ONLY) Normal [facility] ED PHYSICIAN CLINICAL REPORT on 06-12-2025 ED PHYSICIAN CLINICAL REPORT Normal [facility] ED SUPER BILLon 06-12-2025 ED SUPER BILL Normal [facility] ED VISIT SUMMARYon ED VISIT SUMMARY Normal [facility] ED VITALS FLOW SHEETon 06-12 ED VITALS FLOW SHEET Normal [facility] C-REACTIVE PROTEINon 025 CRP 0.06 mg/dl Normal 0.00 - 0.90 [facility] Comment on above: Performed By: #### 2 76716 ####[facility],[address] [place], [place] [id number] CBC + DIFFon 06-11-2025 Baso # 0.03 x10EE3/UL Normal 0.00 - 0.10 [facility] Comment on above: Performed By: #### 2 83304 ####[facility],[address] [place] [address] 36833 Basophils/100 WBC (Bld) 0.6 % Normal 0.0 - 2.0 [facility] Comment on above: Performed By: #### 2 69911 ####[facility],[address] [place] [address] 61182 CBC + DIFF Normal [facility] Comment on above: Result Comment: CBC- COMPLETE BLOOD COUNT Performed By: #### 2 31408 ####[facility],[address] [place] [address] 46510 EO # 0.10 x10EE3/UL Normal 0.00 - 0.50 [facility] Comment on above: Performed By: #### 2 70946 ####[facility],[address] [place], [place] [id number] Eosinophils/100 WBC (Bld) 2.2 % Normal 0.0 - 7.0 [facility] Comment on above: Performed By: #### 2 54787 ####[place] [address] Erythrocyte distribution width (RBC) [Ratio] 14.8 % Normal 12.0 - 15.6 [facility] Comment on above: Performed By: #### 2 61840 ####[place] [address] Hematocrit (Bld) [Volume fraction] 38.0 % Normal 34.0 - 46.0 [facility] Comment on above: Performed By: #### 2 45090 ####[place] [address] Hemoglobin (Bld) [Mass/Vol] 12.7 g/dL Normal 12.0 - 16.0 [facility] Comment on above: Performed By: #### 2 33143 ####[facility],[address] [place] [address] 23011 Lymph # 1.29 x10EE3/UL Normal 0.80 - 2.80 [facility] Comment on above: Performed By: #### 2 82565 ####[place] [id number] Lymphocytes/100 WBC (Bld) 29.1 % Normal 20.0 - 45.0 [facility] Comment on above: Performed By: #### 2 12581 ####[place] [address] MANUAL DIFF N/A Normal [facility] Comment on above: Performed By: #### 2 68257 ####[facility],[address] [place] [address] MCH (RBC) [Entitic mass] 31 pg Normal 27 - 33 [facility] Comment on above: Performed By: #### 2 76107 ####[facility],[address] [place] [address] MCHC 33 X10 3 Normal 32 - 36 [facility] Comment on above: Performed By: #### 2 99691 ####[facility],[address] [place], [place] [id number] MCV (RBC) [Entitic vol] 92 fL Normal 80 - 99 [facility] Comment on above: Performed By: #### 2 38215 ####[facility],[address] [place] [address] [place] # 0.43 x10EE3/UL Normal 0.20 - 1.00 [facility] Comment on above: Performed By: #### 2 27014 ####[facility],[address] [place] [address] MONOS % 9.8 % Normal 0.0 - 10.0 [facility] Comment on above: Performed By: #### 2 36602 ####[facility],[address] [place], [place] [id number] Morphology Sam (Bld) [Interp] N/A Normal [facility] Comment on above: Performed By: #### 2 42137 ####[facility],[address] [place] [address] 54618 Neut # 2.59 x10EE3/UL Normal 1.50 - 7.10 [facility] Comment on above: Performed By: #### 2 59053 ####[facility],[address] [place], [place] [address] Neutrophils/100 WBC (Bld) 58.4 % Normal 46.0 - 76.0 [facility] Comment on above: Performed By: #### 2 90464 ####[facility],[address] [place] [address] 19412 PLATELET 139 x10EE3/UL Low 150 - 450 [facility] Comment on above: Performed By: #### 2 17541 ####[facility],[address] [place] [address] Platelet mean volume (Bld) [Entitic vol] 9.4 fL Normal 6.6 - 10.5 [facility] Comment on above: Result Comment: AUTO MATED DIFFERENTIAL Performed By: #### 2 45878 ####[facility],[address] [place] [address] RBC 4.14 x 10EE6/UL Normal 4.10 - 5.30 [facility] Comment on above: Performed By: #### 2 23213 ####[facility],[address] [place], [place] [id number] WBC 4.4 x 10EE3/UL Low 4.5 - 10.8 [facility] Comment on above: Performed By: #### 2 14046 ####[facility],[address] [place] [address] CMP with eGFRon 06-11-2025 AGE 85 years Normal [facility] Comment on above: Performed By: #### 2 22193 ####[facility],[address] [place], [place] [id number] Albumin [Mass/Vol] 3.4 g/dL Normal 3.4 - 5.0 [facility] Comment on above: Performed By: #### 2 66726 ####[facility],[address] [place], [place] [address] Albumin/Globulin [Mass ratio] 1.3 {ratio} Normal 0.9 - 1.6 [facility] Comment on above: Performed By: #### 2 66819 ####[facility],[address] [place] [address] ALK PHOS 89 U/L Normal 46 - 116 [facility] Comment on above: Performed By: #### 2 02980 ####[place] [id number] ALT [Catalytic activity/Vol] 28 U/L Normal 16 - 63 [facility] Comment on above: Performed By: #### 2 25115 ####[facility],[address] [place] [address] Anion gap [Moles/Vol] 9 mmol/L Low 10 - 20 [facility] Comment on above: Performed By: #### 2 11976 ####[place] [address] AST [Catalytic activity/Vol] 19 U/L Normal 13 - 39 [facility] Comment on above: Performed By: #### 2 90951 ####[place] [address] B/C RATIO 15 ratio Normal 0 - 30 [facility] Comment on above: Performed By: #### 2 37474 ####[place] [address] Bilirubin [Mass/Vol] 0.8 mg/dL Normal 0.2 - 1.0 [facility] Comment on above: Performed By: #### 2 54810 ####[facility],[address] [place], [place] [address] Calcium [Mass/Vol] 9.1 mg/dL Normal 8.5 - 10.1 [facility] Comment on above: Performed By: #### 2 13387 ####[place] [id number] Chloride [Moles/Vol] 101 mmol/L Normal 98 - 107 [facility] Comment on above: Performed By: #### 2 46735 ####[facility],[address] [place] [address] CMP with eGFR Normal [facility] Comment on above: Result Comment: COMP REHENSIVE METABOLIC PANEL Performed By: #### 2 98645 ####[facility],[address] [place] [address] 74151 CO2 [Moles/Vol] 32.3 mmol/L High 21.0 - 32.0 [facility] Comment on above: Performed By: #### 2 19478 ####[facility],[address] [place] [address] Creatinine [Mass/Vol] 1.36 mg/dL High 0.55 - 1.02 [facility] Comment on above: Performed By: #### 2 41362 ####[facility],[address] [place], [place] [address] eGFR 37 ML/MINUTE Low 60 - 999 [facility] Comment on above: Performed By: #### 2 21545 ####[facility],[address] [place], [place] [address] eGFR(AA) 45 ML/MINUTE Low 60 - 999 [facility] Comment on above: Result Comment: ACCO RDING TO THE NATIONAL KIDNEY DISEASE EDUCATION PROGRAM(NKDE), A NORMAL eGFRIS A VALUE GREATER THAN OR EQUAL TO 60 ML/MIN/1.73 SQ METERS.CHRONIC KIDNEY DISEASE: <60mL/MIN/1.73 SQ METERSKIDNEY FAILURE: <15mL/MIN/1.73 SQ METERSTHIS TEST SHOULD ONLY BE USED FOR PATIENTS 18 YEARS OF AGE AND OLDER. Performed By: #### 2 61823 ####[facility],[address] [place] [address] 76686 Globulin (S) [Mass/Vol] 2.6 g/dL Normal 1.5 - 3.8 [facility] Comment on above: Performed By: #### 2 06683 ####[facility],[address] [place], [place] [address] Glucose [Mass/Vol] 120 mg/dL High 74 - 106 [facility] Comment on above: Performed By: #### 2 31361 ####[facility],[address] [place] [address] 48966 Potassium [Moles/Vol] 3.9 mmol/L Normal 3.5 - 5.1 [facility] Comment on above: Performed By: #### 2 20936 ####[facility],[address] [place] [address] 46431 Protein [Mass/Vol] 6.0 g/dL Low 6.4 - 8.2 [facility] Comment on above: Performed By: #### 2 72099 ####[facility],[address] [place] [address] 55099 Sodium [Moles/Vol] 138 mmol/L Normal 136 - 145 [facility] Comment on above: Performed By: #### 2 75105 ####[facility],[address] [place] [address] 14527 Urea nitrogen [Mass/Vol] 21 mg/dL High 7 - 18 [facility] Comment on above: Performed By: #### 2 06011 ####[facility],[address] [place], [place] [address] CT CHEST/ABD/PELVIS C+on CT CHEST/ABD/PELVIS C+ Normal [facility] CULTURE BLOOD [MARC]on Microscopic examination of blood, culture CULTURE BLOOD [MARC] _BLOOD CULTURE_ GO TO [employer] REPORTS AND ATTACHMENTS FOR SCANNED REPORT 06/23/25.1032.DNP.COMPLE TE Normal [facility] Comment on above: Performed By: #### 2 63277 ####[facility],[address] [place] [address] 22460 Microscopic examination of blood, culture CULTURE BLOOD [MARC] _BLOOD CULTURE_ GO TO [employer] REPORTS AND ATTACHMENTS FOR SCANNED REPORT 06/23/25.1032.DNP.COMPLE TE Normal [facility] Comment on above: Performed By: #### 2 26982 ####[facility],[address] [place], [place] [address] LACTATEon 06-11-2025 Lactate [Moles/Vol] 0.8 mmol/L Normal 0.4 - 2.0 [facility] Comment on above: Performed By: #### 2 37891 ####[facility],[address] [place], [place] [address] LIPASEon 06-11-2025 Lipase [Catalytic activity/Vol] 26.0 U/L Normal 15.0 - 78.0 [facility] Comment on above: Result Comment: *PLE ASE NOTE THAT RANGES FOR LIPASE HAVE CHANGED OF 10/24/23 DUE TO AN ASSAYUPDATE BY THE CONTRACT NEGOTIATION SPECIALIST.THE NEW ASSAY RANGE IS 6-250 U/L, WITH A REFERENCERANGE OF 16-77 U/L. Performed By: #### 2 70966 ####[place] [address] NT-proBNPon 06-11-2025 Natriuretic peptide B (Bld) [Mass/Vol] 459 pg/mL High 0 - 450 [facility] Comment on above: Performed By: #### 2 79408 ####[place] [address] TROPONINon 06-11-2025 HS TROPONIN <4.0 Normal 0.0 - 51.4 [facility] Comment on above: Performed By: #### 2 04905 ####[place] [id number] URINALYSISon 06-11-2025 Bilirubin Ql (U) Negative Normal NORMAL: NEGATIVE [facility] Comment on above: Performed By: #### 2 41830 ####[place] [address] Clarity (U) clear Normal NORMAL: CLEAR [facility] Comment on above: Performed By: #### 2 07736 ####[place] [address] Color (U) p.yel Normal NORMAL: YELLOW [facility] Comment on above: Performed By: #### 2 56383 ####[facility],[address] [place] [address] 12486 Glucose Ql (U) NORM Normal NORMAL: NORMAL [facility] Comment on above: Performed By: #### 2 21823 ####[facility],[address] [place] [address] 95097 Hemoglobin Ql (U) Negative Normal NORMAL: NEGATIVE [facility] Comment on above: Performed By: #### 2 70574 ####[facility],[address] [place] [address] 90196 Ketone Negative Normal NORMAL: NEGATIVE [facility] Comment on above: Performed By: #### 2 89357 ####[facility],[address] [place] [address] 42280 Leukocytes Negative Normal NORMAL: NEGATIVE [facility] Comment on above: Performed By: #### 2 97699 ####[facility],[address] [place] [address] 57727 Nitrite Ql (U) Negative Normal NORMAL: NEGATIVE [facility] Comment on above: Performed By: #### 2 07993 ####[facility],[address] [place] [address] 99900 pH (U) 7 [pH] Normal NORMAL: 5.0-8.0 [facility] Comment on above: Performed By: #### 2 95073 ####[facility],[address] [place] [address] 40877 Protein Ql (U) 15 Abnormal NORMAL: NEGATIVE [facility] Comment on above: Performed By: #### 2 13099 ####[facility],[address] [place] [address] 73238 Sp [place] 1.010 Normal NORMAL: 1.010-1.030 [facility] Comment on above: Performed By: #### 2 30214 ####[facility],[address] [place], [place] [address] Specimen Type R Normal [facility] Comment on above: Performed By: #### 2 65960 ####[facility],[address] [place] [address] Urinalysis dipstick W Reflex Microscopic panel (U) NOT INDICATED Normal [facility] Comment on above: Performed By: #### 2 87491 ####[facility],[address] [place] [address] Urobilinog NORM Normal NORMAL: NORMAL [facility] Comment on above: Performed By: #### 2 04365 ####[facility],[address] [place] [address] CBC + DIFFon 06-02-2025 Baso # 0.01 x10EE3/UL Normal 0.00 - 0.10 [facility] Comment on above: Performed By: #### 2 02386 #### [facility],[address] [place] [address] Basophils/100 WBC (Bld) 0.4 % Normal 0.0 - 2.0 [facility] Comment on above: Performed By: #### 2 41204 #### [facility],[address] [place] [address] CBC + DIFF Normal [facility] Comment on above: Result Comment: CBC- COMPLETE BLOOD COUNT Performed By: #### 2 14238 #### [facility],[address] [place] [address] EO # 0.05 x10EE3/UL Normal 0.00 - 0.50 [facility] Comment on above: Performed By: #### 2 34952 #### [facility],[address] [place] [address] Eosinophils/100 WBC (Bld) 1.4 % Normal 0.0 - 7.0 [facility] Comment on above: Performed By: #### 2 26201 #### [facility],[address] [place] [address] Erythrocyte distribution width (RBC) [Ratio] 14.7 % Normal 12.0 - 15.6 [facility] Comment on above: Performed By: #### 2 59755 #### [facility],[address] [place] [address] Hematocrit (Bld) [Volume fraction] 40.1 % Normal 34.0 - 46.0 [facility] Comment on above: Performed By: #### 2 45707 #### [facility],[address] [place] [address] Hemoglobin (Bld) [Mass/Vol] 13.3 g/dL Normal 12.0 - 16.0 [facility] Comment on above: Performed By: #### 2 77674 #### [facility],[address] [place] [address] Lymph # 1.27 x10EE3/UL Normal 0.80 - 2.80 [facility] Comment on above: Performed By: #### 2 82409 #### [facility],[address] [place] [address] Lymphocytes/100 WBC (Bld) 32.4 % Normal 20.0 - 45.0 [facility] Comment on above: Performed By: #### 2 79772 #### [facility],[address] [place] [address] MANUAL DIFF N/A Normal [facility] Comment on above: Performed By: #### 2 49738 #### [facility],[address] [place] [address] MCH (RBC) [Entitic mass] 30 pg Normal 27 - 33 [facility] Comment on above: Performed By: #### 2 52483 #### [facility],[address] [place] [address] MCHC 33 X10 3 Normal 32 - 36 [facility] Comment on above: Performed By: #### 2 12300 #### [facility],[address] [place] [address] MCV (RBC) [Entitic vol] 91 fL Normal 80 - 99 [facility] Comment on above: Performed By: #### 2 63736 #### [facility],[address] [place] [address] [place] # 0.32 x10EE3/UL Normal 0.20 - 1.00 [facility] Comment on above: Performed By: #### 2 77034 #### [facility],[address] [place] [address] MONOS % 8.3 % Normal 0.0 - 10.0 [facility] Comment on above: Performed By: #### 2 85557 #### [facility],[address] [place] [address] Morphology Sam (Bld) [Interp] N/A Normal [facility] Comment on above: Performed By: #### 2 92692 #### [facility],[address] [place] [address] Neut # 2.27 x10EE3/UL Normal 1.50 - 7.10 [facility] Comment on above: Performed By: #### 2 48225 #### [facility],[address] [place] [address] Neutrophils/100 WBC (Bld) 57.7 % Normal 46.0 - 76.0 [facility] Comment on above: Performed By: #### 2 91101 #### [facility],[address] [place] [address] PLATELET 155 x10EE3/UL Normal 150 - 450 [facility] Comment on above: Performed By: #### 2 97633 #### [facility],[address] [place] [address] Platelet mean volume (Bld) [Entitic vol] 9.2 fL Normal 6.6 - 10.5 [facility] Comment on above: Result Comment: AUTO MATED DIFFERENTIAL Performed By: #### 2 29895 #### [facility],[address] [place] [address] 94924 RBC 4.40 x 10EE6/UL Normal 4.10 - 5.30 [facility] Comment on above: Performed By: #### 2 83374 #### [facility],[address] [place] [address] 17638 WBC 3.9 x 10EE3/UL Low 4.5 - 10.8 [facility] Comment on above: Performed By: #### 2 15149 #### [facility],[address] [place] [address] 93477 CHEST 1 VIEWon 06-02-2025 CHEST 1 VIEW [place] [address] Patient: KIMBERLY LEE Phone#: : 1940 Age: 85 Gender: F Pt. Type: ER Account: [id number] Location: [facility] Ordering: KRANTHI MAURICIO Exam Date: 06/02/2025/10:13 Family Phys: Charge Code: [id number] Physician: [place] Order #: [id number] Dose#: PROCEDURE: X-RAY CHEST 1 VIEW COMPARISON: None. INDICATIONS: High blood pressure. FINDINGS: LUNGS: Left basilar atelectasis versus prominent pericardial fat pad. No significant pulmonary parenchymal abnormalities. VASCULATURE: Normal. Unremarkable pulmonary vasculature. CARDIAC: Mild cardiomegaly. MEDIASTINUM: Calcifications present at the aortic arch. PLEURA: Normal. No effusion or pleural thickening. BONES: Normal. No fracture or visible bony lesion. OTHER: Negative. CONCLUSION: 1. Cardiomegaly. 2. There is no evidence of acute pulmonary abnormality. Dictated by: Lakia Markham MD on 06/02/2025 at 10:47 Approved by: Lakia Markham MD on 06/02/2025 at 10:49 Normal [facility] CMP with eGFRon 06-02-2025 AGE 85 years Normal [facility] Comment on above: Performed By: #### 2 45095 ####[facility],[address] [place] [address] 02964 Albumin [Mass/Vol] 3.7 g/dL Normal 3.4 - 5.0 [facility] Comment on above: Performed By: #### 2 71716 ####[facility],[address] [place] [address] 12819 Albumin/Globulin [Mass ratio] 1.3 {ratio} Normal 0.9 - 1.6 [facility] Comment on above: Performed By: #### 2 28888 ####[facility],[address] [place] [address] 16441 ALK PHOS 87 U/L Normal 46 - 116 [facility] Comment on above: Performed By: #### 2 74510 ####[facility],[address] [place] [address] 78960 ALT [Catalytic activity/Vol] 30 U/L Normal 16 - 63 [facility] Comment on above: Performed By: #### 2 36367 ####[facility],[address] [place] [address] 28751 Anion gap [Moles/Vol] 11 mmol/L Normal 10 - 20 [facility] Comment on above: Performed By: #### 2 96269 ####[facility],[address] [place] [address] 63204 AST [Catalytic activity/Vol] 24 U/L Normal 13 - 39 [facility] Comment on above: Performed By: #### 2 42570 ####[facility],[address] [place] [address] 69326 B/C RATIO 17 ratio Normal 0 - 30 [facility] Comment on above: Performed By: #### 2 99956 ####[facility],[address] [place] [address] 56878 Bilirubin [Mass/Vol] 1.1 mg/dL High 0.2 - 1.0 [facility] Comment on above: Performed By: #### 2 58305 ####[facility],[address] [place] [address] 58556 Calcium [Mass/Vol] 9.2 mg/dL Normal 8.5 - 10.1 [facility] Comment on above: Performed By: #### 2 80177 ####[facility],[address] [place] [address] 85571 Chloride [Moles/Vol] 103 mmol/L Normal 98 - 107 [facility] Comment on above: Performed By: #### 2 84550 ####[facility],[address] [place] [address] 69302 CMP with eGFR Normal [facility] Comment on above: Result Comment: COMP REHENSIVE METABOLIC PANEL Performed By: #### 2 50433 ####[facility],[address] [place] [address] 64874 CO2 [Moles/Vol] 30.6 mmol/L Normal 21.0 - 32.0 [facility] Comment on above: Performed By: #### 2 64939 ####[facility],[address] [place] [address] 07124 Creatinine [Mass/Vol] 1.03 mg/dL High 0.55 - 1.02 [facility] Comment on above: Performed By: #### 2 02068 ####[facility],[address] [place] [address] 36951 eGFR 51 ML/MINUTE Low 60 - 999 [facility] Comment on above: Performed By: #### 2 90135 ####[facility],[address] [place] [address] 52850 GFR/1.73 sq M.predicted among non-blacks MDRD (S/P/Bld) [Vol rate/Area] mL/min/{1.73_m2} Normal 60 - 999 [facility] Comment on above: Result Comment: ACCO RDING TO THE NATIONAL KIDNEY DISEASE EDUCATION PROGRAM(NKDE), A NORMAL eGFR IS A VALUE GREATER THAN OR EQUAL TO 60 ML/MIN/1.73 SQ METERS. CHRONIC KIDNEY DISEASE: <60mL/MIN/1.73 SQ METERS KIDNEY FAILURE: <15mL/MIN/1.73 SQ METERS THIS TEST SHOULD ONLY BE USED FOR PATIENTS 18 YEARS OF AGE AND OLDER. Performed By: #### 2 66469 ####[facility],[address] [place] [address] 42967 Globulin (S) [Mass/Vol] 2.9 g/dL Normal 1.5 - 3.8 [facility] Comment on above: Performed By: #### 2 05884 ####[facility],[address] [place] [address] 16543 Glucose [Mass/Vol] 119 mg/dL High 74 - 106 [facility] Comment on above: Performed By: #### 2 97409 ####[facility],[address] [place] [address] 54089 Potassium [Moles/Vol] 3.5 mmol/L Normal 3.5 - 5.1 [facility] Comment on above: Performed By: #### 2 91335 ####[facility],[address] [place] [address] 09116 Protein [Mass/Vol] 6.6 g/dL Normal 6.4 - 8.2 [facility] Comment on above: Performed By: #### 2 55643 ####[facility],[address] [place] [address] 05294 Sodium [Moles/Vol] 141 mmol/L Normal 136 - 145 [facility] Comment on above: Performed By: #### 2 67248 ####[facility],[address] [place] [address] 83236 Urea nitrogen [Mass/Vol] 17 mg/dL Normal 7 - 18 [facility] Comment on above: Performed By: #### 2 26525 ####[facility],[address] [place] [address] ABDOMEN/PELVIS [facility] 2024 CT ABDOMEN/PELVIS [place] [address] Patient: KIMBERLY LEE. Phone#: : 1940 Age: 85 Gender: F Pt. Type: ER Account: [id number] Location: [facility] Ordering: KRANTHI MAURICIO Exam Date: 06/02/2025/10:56 Family Phys: Charge Code: [id number] Physician: [place] Order #: [id number] Dose#: [id number] PROCEDURE: CT ABDOMEN/PELVIS WITH CONTRAST COMPARISON: None. INDICATIONS: Epigastric pain. TECHNIQUE: After obtaining the patient's consent, CT images were created with non-ionic intravenous contrast material. All CT scans at this facility use dose modulation, iterative reconstruction, and/or weight based dosing when appropriate to reduce radiation dose to as low as reasonably achievable. IV CONTRAST: Omnipaque 350,80ml TOTAL DOSE: 11.60 CTDIvol(mGy) FINDINGS: LIVER: Normal. No enlargement, atrophy, abnormal density, or significant focal lesion. BILIARY: The gallbladder is absent. Surgical clips are present in the gallbladder fossa. The common bile duct is prominent, possibly physiologic. PANCREAS: Normal. No lesion, fluid collection, ductal dilatation, or atrophy. SPLEEN: Normal. No enlargement or focal lesion. KIDNEYS: Left peripelvic cysts are present. No mass, obstruction, or calcification. ADRENALS: Normal. No mass or enlargement. AORTA/VASCULAR: Normal. No aneurysm or dissection. RETROPERITONEUM: Normal. No mass or adenopathy. BOWEL/MESENTERY: Colonic diverticula are present without inflammatory change. No visible mass, obstruction, or bowel wall thickening. ABDOMINAL WALL: Normal. No mass or hernia. URINARY BLADDER: Normal. No visible focal wall thickening, lesion, or calculus. PELVIC NODES: Normal. No adenopathy. PELVIC ORGANS: Normal. No visible mass. Pelvic organs appropriate for patient age. BONES: Severe degenerative changes of the spine are present. No bony lesion or fracture. LUNG BASES: Trace pericardial effusion is present. Coronary artery calcification is present. Continued Report - Page 2 of 2 Patient: KIMBERLY LEE. Phone#: : 1940 Age: 85 Gender: F Pt. Type: ER Account: [id number] Location: 052 Ordering: KRANTHI MAURICIO Exam Date: 06/02/2025/10:56 Family Phys: Charge Code: [id number] Physician: [place] Order #: [id number] Dose#: [id number] OTHER: Negative. CONCLUSION: 1. Diverticulosis. 2. Left renal peripelvic cysts. 3. Trace pericardial effusion. Dictated by: Lakia Markham MD on 06/02/2025 at 11:19 Approved by: Lakia Markham MD on 06/02/2025 at 11:24 Normal [facility] CT BRAIN W/O CONTRASTon 08-0 CT BRAIN W/O CONTRAST [place] [address] Patient: KIMBERLY LEE Phone#: : 1940 Age: 85 Gender: F Pt. Type: ER Account: [id number] Location: 052 Ordering: KRANTHI MAURICIO Exam Date: 06/02/2025/10:56 Family Phys: Charge Code: 400071 Physician: [place] Order #: [id number] Dose#: [id number] PROCEDURE: CT BRAIN WITHOUT CONTRAST COMPARISON: None. INDICATIONS: Dizziness. TECHNIQUE: CT images were obtained without contrast material. All CT scans at this facility use dose modulation, iterative reconstruction, and/or weight based dosing when appropriate to reduce radiation dose to as low as reasonably achievable. IV CONTRAST: No IV contrast used,0ml TOTAL DOSE: 57.50 CTDIvol(mGy) FINDINGS: CEREBRUM: Age-appropriate atrophy is present, without visible acute hemorrhage or lesion. CEREBELLUM: No edema, hemorrhage, mass, acute infarction, or inappropriate atrophy. BRAINSTEM: No edema, hemorrhage, mass, acute infarction, or inappropriate atrophy. CSF SPACES: Ventricles, cisterns, and sulci are appropriate for age. No hydrocephalus, subarachnoid hemorrhage, or mass. SKULL: No mass or other significant visible lesion. SINUSES: Mucosal thickening is present in the ethmoid sinuses. ORBITS: Limited views are unremarkable. OTHER: Negative. CONCLUSION: 1. There is no evidence of acute intracranial abnormality. 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 Allergies verified Given (NOW x1) and confirmed 5 rights. IV patency established. IV site checked: no 10:00 06/02/2025 pain, redness, or swelling. IV flushed thoroughly pre-medication Melina Strickland R.N. administration. Information reviewed with patient including reason Scanned for taking this medication, signs of allergic reaction and precautions. Verbalizes understanding. - 10:00 María Elena LesetrN. MORPHine IVP 4 10:00 08 MORPHine IVP 4 mg given via Site# 1. Allergies Given mg (NOW x1, HIGH verified and confirmed 5 rights. IV patency established. IV site 10:00 06/02/2025 ALERT checked: no pain, redness, or swelling. IV flushed thoroughly Melina Strickland R.N. MEDICATION) pre-medication administration. Information reviewed with patient Scanned including reason for taking this medication, signs of allergic reaction and precautions. Verbalizes understanding. - 10:00 Melina Strickland R.N. 1 of 1 Normal [facility] ED NURSES CLINICAL NOTEon ED NURSES CLINICAL NOTE Nurse Narrative - NATALIEMarch, : 1940, , Nurse Clinical Narrative [place] [address] [place] [address] [id number] 06/02/2025 09:16:00 Patient: KIMBERLY LEE Sex: Female : 1940 Age: 85y Disposition: Discharge to Home Disposition Decision Time: 11:39 06/02/2025 Departure Time: 11:57 06/02/2025 TRIAGE Arrived by private vehicle. Historian: (patient). Primary physician (Lynne Rodrigez). Triage time: 09:18 06/02/2025. Acuity: LEVEL 3. Chief Complaint: (High blood pressure readings at home). BLOOD PRESSURE ELEVATED 185/99. Onset. (x few weeks). ( Patient saw Lynne Rodrigez recently and she adjusted the patient's blood pressure medications.). ( fuzzy in head, pain underneath breasts.). SEPSIS SCREEN: NEGATIVE. SIRS criteria negative. -- 09:35 06/02/25 EDT Melina Strickland R.N. 09:18 06/02/25. ( Patient did not take her blood pressure medications this morning). -- 09:36 06/02/25 EDT Melina Strickland R.N. 09:33 06/02/25. BP: 185/99 MAP: 128. HR: 79. RR: 16. O2 saturation: 97% on room air. Temperature: 97.2 F (oral). Pain level now 7/10. (Pleural pain). -- 09:34 06/02/25 EDT Melina Strickland R.N. Measurements: 09:33 06/02/25 Wt: 61.7 kg, Ht/Alcides: 59.0 in, BMI: 27.47 -- 09:33 06/02/25 EDT Melina Strickland R.N. Medications: metoprolol succinate ER 25 mg tablet,extended release 24 hr -- 10:59 06/02/25 EDT María Elena ColvinPh. lisinopril 30 mg tablet: 30 mg every night at bedtime. -- 10:59 06/02/25 EDT María Elena ColvinPh. 1 of 4 Nurse Narrative - KIMBERLY LEE, : 1940, , isosorbide mononitrate ER 60 mg tablet,extended release 24 hr: 60 mg twice a day. -- 10:59 06/02/25 EDT Ángel Ochoa R.Ph. omeprazole 40 mg capsule,delayed release: 40 mg twice a day. -- 10:59 06/02/25 EDT María Elena ColvinPhMichael furosemide 40 mg tablet: 40 mg twice a day. -- 10:59 06/02/25 EDT María Elena ColvinPh. Eliquis 5 mg tablet: 5 mg twice a day. -- 10:59 06/02/25 EDT María Elena ColvinPhMichael buspirone 5 mg tablet: 5 mg twice a day. -- 10:59 06/02/25 EDT María Elena ColvinPh. atorvastatin 40 mg tablet: 40 mg every night at bedtime. -- 10:59 06/02/25 EDT María Elena ColvinPh. diltiazem CD 120 mg capsule,extended release 24 hr -- 10:59 06/02/25 EDT María Elena ColvinPh. chlorthalidone 25 mg tablet -- 10:59 06/02/25 EDT María Elena ColvinPhMichael carvedilol 3.125 mg tablet: 3.125 mg twice a day. -- 10:59 06/02/25 EDT Ángel Ochoa R.Ph.Updated through eRx -- 11:40 06/02/25 EDT Kranthi Mauricio D.O. carvedilol 3.125 mg tablet: 3.125 mg twice a day. Stopped 06/02/2025. -- 11:40 06/02/25 EDT Kranthi Mauricio D.O. Allergies: no known drug allergies -- 09:32 06/02/25 EDT Melina Strickland R.N. Problems: Hypertension -- 09:32 06/02/25 EDT Melina Strickland R.N. Hypercholesterolemia -- 09:34 06/02/25 EDT Melina Strickland R.N. Atrial Fibrillation -- 09:34 06/02/25 EDT Melina Strickland R.N. Depression -- 09:35 06/02/25 EDT Melina Strickland R.N. Anxiety disorder -- 09:35 06/02/25 EDT Melina Strickland R.N. Surgeries: Cholecystectomy -- 09:35 06/02/25 EDT Melina Strickland R.N. Appendectomy -- 09:35 06/02/25 EDT Melina Strickland R.N. Tubal Ligation -- 09:35 06/02/25 EDT Melina Strickland R.N. History 09:18 06/02/25. SOCIAL HX: Never smoker. No alcohol use or drug use. The patient has not traveled outside the [place] Infectious disease exposure: No infectious disease exposure. ABUSE ASSESSMENT: The patient answered yes to the question(s) Do you feel safe in your home? and 2 of 4 Nurse Narrative - LEEMarch, : 1940, , no to the question(s) Are you afraid to go home?. SELF HARM ASSESSMENT: Self harm assessment was performed. The patient answered no to the question(s) Have you recently felt down, depressed, or hopeless? and Do you have thoughts of harming or killing yourself?. FALL RISK ASSESSMENT: Fall risk assessment completed. No risk factors identified. -- 09:35 06/02/25 EDT Melina Strickland R.N. Interventions 09:18 06/02/25. Advanced care plan discussed with patient. Patient has a living will and medical power of ip technology transactions attorney. -- 09:35 06/02/25 DEANDRET Melina Strickland R.N. PHYSICAL ASSESSMENT 09:40 06/02/25. GENERAL / NEURO / PSYCH: Alert. Oriented X 4. Appears in no acute distress. HEENT: Pupils equal, round and reactive to light. RESPIRATORY: Respirations not labored. Breath sounds within normal limits. GI / : Abdomen soft and nontender and normal bowel sounds. SKIN: Skin intact. Skin is warm and dry. -- 09:44 06/02/25 DEANDRET Melina Strickland R.N. NURSING PROGRESS NOTES 09:40 06/02/25. Site #1 started in the right antecubital space with a 20g needle with aseptic technique and good blood return; 1 attempt. Blood drawn: rainbow set tube(s). Labeled in the presence of the patient and sent to the lab. Saline lock flushed with 5 mL saline. -- 09:43 (more content not included)... Normal [facility] ED ORDER SHEET (CPOE ONLY)on 06-02-2025 ED ORDER SHEET (CPOE ONLY) Order Sheet - March, : 1940, , Order Sheet [place] [id number] [facility] [place] [address] [id number] 06/02/2025 Patient: KIMBERLY LEE Sex: Female : 1940 Age: 85y MEASUREMENTS: Wt: 61.7 kg, Ht/Alcides: 59.0 in, BMI: 27.47 ALLERGIES: No known drug allergies MEDICATION/IV/DRIP/FLUID ORDERS Order Description Priority Entered Acknowledged Completed Zofran IVP4 mg (NOW x1) 09:35 06/02/2025 09:45 10:00 Kranthi Mauricio, 06/02/2025 06/02/2025 FeliciaOMelina Stephens, R.N. R.N. MORPHine IVP4 mg (NOW x1, 09:35 06/02/2025 09:45 10:00 HIGH ALERT MEDICATION) Kranthi Mauricio, 06/02/2025 06/02/2025 FeliciaOMelina Stephens, R.N. R.N. LAB ORDERS Order Description Priority Entered Acknowledged Collected Completed CBC w Diff Stat Stat 09:35 06/02/2025 09:45 06/02/2025 09:49 06/02/2025 Melina Alston Lemasters, D.O. R.N. R.N. CMP Stat Stat 09:35 06/02/2025 09:45 06/02/2025 09:49 06/02/2025 Melina Alston, 1 of 3 Order Sheet - March, : 1940, , Alycia MauricioNMichael R.N. Lipase Stat Stat 09:35 06/02/2025 09:45 06/02/2025 09:49 06/02/2025 Kranthi Strickland, Kane Lester D.O. R.N. R.N. Troponin-I Stat Stat 09:35 06/02/2025 09:45 06/02/2025 09:49 06/02/2025 Melina Alston Lemasters, D.O. R.N. R.NMichael EKG - ED Stat Stat 09:35 06/02/2025 09:45 06/02/2025 10:02 06/02/2025 Melina Alston Lemasters, D.O. R.N. R.NMichael Urinalysis Stat Stat 09:35 06/02/2025 09:45 06/02/2025 10:02 06/02/2025 Melina Alston Lemasters, D.O. R.N. R.NMichael DIAGNOSTIC STUDY ORDERS Order Description Priority Entered Acknowledged Completed Chest 1V Stat Stat 09:35 06/02/2025 09:45 12:05 Kranthi Mauricio, 06/02/2025 06/02/2025 Melina Gonzales R.N. R.N. Reason for Study: epigastric pain CT ABD/PEL w Cont Stat Stat 09:35 06/02/2025 09:45 12:05 Kranthi Mauricio, 06/02/2025 06/02/2025 Melina Gonzales R.N. R.N. Reason for Study: epigastric pain CT Brain wo Cont Stat Stat 09:35 06/02/2025 09:45 12:05 2 of 3 Order Sheet - NATALIEMarch, : 1940, , Kranthi Mauricio, 06/02/2025 06/02/2025 Melina Gonzales R.N. RMichaelNMichael Reason for Study: Dizziness STAFF ORDERS Order Description Priority Entered Acknowledged Collected Completed IV Saline Lock 09:35 06/02/2025 09:45 06/02/2025 10:02 06/02/2025 Melina Alston Lemasters, D.O. R.N. RMichaelNMichael [Electronically signed by Kranthi Mauricio D.O. (06/02/2025 12:46 EDT)] 3 of 3 Normal [facility] ED PHYSICIAN CLINICAL REPORT on 06-02-2025 ED PHYSICIAN CLINICAL REPORT Narrative - KIMBERLY LEE, : 1940, , Physician Clinical Narrative [address] [address] [id number] 06/02/2025 09:16:00 Patient: KIMBERLY LEE Sex: Female : 1940 Age: 85y Disposition: Discharge to Home Disposition Decision Time: 11:39 06/02/2025 Departure Time: 11:57 06/02/2025 Measurements Wt: 61.7 kg, Ht/Alcides: 59.0 in, BMI: 27.47 Initial Vital Sign Measured Time BP MAP HR RR O2Sat ETCO2 Temp Pain GCS RTS 09:31 06/02/2025 192/145 156 78 Time Seen: 09:25 06/02/2025. Arrived- By private vehicle. Historian- patient. Independent historian- family. HISTORY OF PRESENT ILLNESS Chief Complaint: ABDOMINAL PAIN. It is described as sharp and it is described as located in the central chest and the epigastric area and in the upper abdomen. This started 2 weeks. (Patient presents with a multiple complaints including upper epigastric pain, coldness in her chest, elevated blood pressure, dizziness. States has been present over the past 2 weeks. Denies any fever, chills, cough, shortness of breath, nausea, vomiting, urinary symptoms. Patient called her family practitioner's office this morning who advised she come to the emergency department.). REVIEW OF SYSTEMS RESPIRATORY: No difficulty breathing. CONSTITUTIONAL: No fever or chills. : No difficulty with urination, pain with urination or urinary frequency. 1 of Fiordaliza LEEMarch, : 1940, , PAST HISTORY Anxiety disorder Atrial Fibrillation Depression Hypercholesterolemia Hypertension Surgeries: Appendectomy Cholecystectomy Tubal Ligation Medications: atorvastatin 40 mg tablet: 40 mg every night at bedtime. buspirone 5 mg tablet: 5 mg twice a day. carvedilol 3.125 mg tablet: 3.125 mg twice a day. Stopped 06/02/2025. chlorthalidone 25 mg tablet diltiazem CD 120 mg capsule,extended release 24 hr Eliquis 5 mg tablet: 5 mg twice a day. furosemide 40 mg tablet: 40 mg twice a day. isosorbide mononitrate ER 60 mg tablet,extended release 24 hr: 60 mg twice a day. lisinopril 30 mg tablet: 30 mg every night at bedtime. metoprolol succinate ER 25 mg tablet,extended release 24 hr omeprazole 40 mg capsule,delayed release: 40 mg twice a day. Allergies: no known drug allergies SOCIAL HISTORY No alcohol use or drug use. ADDITIONAL NOTES The nursing notes have been reviewed. 2 of 14 Fiordaliza LEEMarch, : 1940, , PHYSICAL EXAM Vital Signs: Have been reviewed. Appearance: Alert. No acute distress. ENT: Pharynx normal. Neck: Normal inspection. Neck supple. CVS: Normal heart rate and rhythm. Heart sounds normal. Pulses normal. Respiratory: No respiratory distress. Breath sounds normal. Abdomen: Soft. Tenderness in the epigastric area. Skin: Skin warm and dry. Normal skin color. Extremities: No lower extremity edema. Neuro: No motor deficit. No sensory deficit. LABS, X-RAYS, AND EKG 12-LEAD EKG: EKG time: 09:50 06/02/2025. Normal sinus rhythm. Rate: 80. Normal P waves. Normal QRS complex. Normal ST and T waves. PVCs. The study has been interpreted contemporaneously by me. Interpretation time: 09:53 06/02/2025. Laboratory Tests: CBC + DIFF Final KALIE: 06/02/2025 09:40:00 EDT MsgRcvd: 06/02/2025 10:12 EDT Lab Test Result Reference Status Received 06/02/2025 10:12 CBC + DIFF Final EDT CBC-COMPLETE BLOOD COUNT 3.9 x 10/UL 06/02/2025 10:12 WBC 4.5 - 10.8 Final Below low normal EDT 06/02/2025 10:12 RBC 4.40 x 10/UL 4.10 - 5.30 Final [facility] 1940[facility] , 06/02/2025 10:12 HEMOGLOBIN 13.3 g/dl 12.0 - 16.0 Final EDT 06/02/2025 10:12 HEMATOCRIT 40.1 % 34.0 - 46.0 Final EDT 06/02/2025 10:12 MCV 91 fl 80 - 99 Final EDT 06/02/2025 10:12 MCH 30 pg 27 - 33 Final EDT 06/02/2025 10:12 MCHC 33 X10 3 32 - 36 Final EDT 06/02/2025 10:12 RDW/CV 14.7 % 12.0 - 15.6 Final EDT 06/02/2025 10:12 PLATELET 155 x10/UL 150 - 450 Final EDT 06/02/2025 10:12 MPV 9.2 fl 6.6 - 10.5 Final EDT AUTOMATED DIFFERENTIAL 06/02/2025 10:12 NEUT % 57.7 % 46.0 - 76.0 Final EDT 06/02/2025 10:12 LYMPH % 32.4 % 20.0 - 45.0 Final EDT 06/02/2025 10:12 MONOS % 8.3 % 0.0 - 10.0 Final EDT 06/02/2025 10:12 EO % 1.4 % 0.0 - 7.0 Final EDT 06/02/2025 10:12 BASO % 0.4 % 0.0 - 2.0 Final EDT [facility] 1940[facility] , 06/02/2025 10:12 Lymph # 1.27 x10/UL 0.80 - 2.80 Final EDT 06/02/2025 10:12 Neut # 2.27 x10/UL 1.50 - 7.10 Final EDT 06/02/2025 10:12 [place] # 0.32 x10/UL 0.20 - 1.00 Final EDT 06/02/2025 10:12 EO # (more content not included)... Normal [facility] ED SUPER BILL 06-02-2025 ED SUPER BILL [facility] NATALIEMarch, : 1940, , [facility] [address] [place] [address] [id number] 06/02/2025 Patient: KIMBERLY LEE Sex: Female : 1940 Age: 85y Facility Professional Category Item Description Code Code Quantity Fee Total Nurse/E/M EMERGENCY 002263 1 $0.00 $0.00 DEPT VISIT HIGH SEVERITYFUNCJ (39960-48) Nurse/IV/IM/Infusions IVP additional 317063 1 $0.00 $0.00 push (43921) Nurse/IV/IM/Infusions IVP initial (49387) 750080 1 $0.00 $0.00 Grand $0.00 Total Providers Kranthi Mauricio D.O. Chief Complaint ABDOMINAL PAIN. Principal Diagnosis 1 of 2 [facility] 1940, , Acute epigastric abdominal pain. Cellulitis of the back. ICD-10 Codes R10.13: Epigastric pain L03.312: Cellulitis of back [any part except buttock] 2 of 2 Normal [facility] ED VISIT SUMMARYon ED VISIT SUMMARY Visit [facility] - JAIME NAVASMarch, : 1940, , Visit [facility] [address] [place] [address] [phone] 06/02/2025 Patient: KIMBERLY LEE Sex: Female : 1940 Age: 85y 06/02/2025 12:46 PM EDT ED Arrival:09:16 06/02/2025 EDT Status: Recent Travel:no Language:eng Adv Directive:Yes Isolation Status: Ethnicity:N Fall Risk:no risk Infectious Disease Exposure:no Measurements:4'11 / 149.9 Self-Harm Status:risk Sepsis Screen:negative cm 136.0 lb / 61.7 kg Chief Complaint:(fuzzy in head, pain underneath breasts.), (185/99), (January Rain), (High blood pressure readings at home), (Patient saw January Rain recently and she adjusted the patient's blood pressure medications.), and (x few weeks) ALLERGIES No Known Drug Allergies HOME MEDICATIONS atorvastatin 40 mg tablet: 40 mg every night at bedtime. 1 of 4 Visit Overview - NATALIEMarch, : 1940, , buspirone 5 mg tablet: 5 mg twice a day. carvedilol 3.125 mg tablet: 3.125 mg twice a day. Stopped 06/02/2025. chlorthalidone 25 mg tablet diltiazem CD 120 mg capsule,extended release 24 hr Eliquis 5 mg tablet: 5 mg twice a day. furosemide 40 mg tablet: 40 mg twice a day. isosorbide mononitrate ER 60 mg tablet,extended release 24 hr: 60 mg twice a day. lisinopril 30 mg tablet: 30 mg every night at bedtime. metoprolol succinate ER 25 mg tablet,extended release 24 hr omeprazole 40 mg capsule,delayed release: 40 mg twice a day. PAST MEDICAL HISTORY / PROBLEMS Anxiety disorder Atrial Fibrillation Depression Hypercholesterolemia Hypertension PAST SURGICAL HISTORY Appendectomy Cholecystectomy Tubal Ligation SOCIAL HISTORY Smoking status: No Alcohol use: No Drug use: No ED COURSE MEDICATIONS GIVEN IN EMERGENCY DEPARTMENT 10:00 06/02/25 Zofran IVP 4 mg 10:06/02/25 MORPHine IVP 4 mg IV SITE INFORMATION 2 of 4 Visit Overview - NATALIEMarch, : 1940, , INTAKE OUTPUT REASSESMENT (most recent) 09:40 06/02/25. GENERAL / NEURO / PSYCH: Alert. Oriented X 4. Appears in no acute distress. HEENT: Pupils equal, round and reactive to light. RESPIRATORY: Respirations not labored. Breath sounds within normal limits. GI / : Abdomen soft and nontender and normal bowel sounds. SKIN: Skin intact. Skin is warm and dry. VITAL SIGNS First Vitals Last Vitals Temp 09:31 06/02/25 Temp 11:48 06/02/25 BP 09:31 06/02/25 192/145 BP 11:48 06/02/25 HR 09:31 06/02/25 78 HR 11:48 06/02/25 77 RR 09:31 06/02/25 RR 11:48 06/02/25 O2 Sat 09:31 06/02/25 O2 Sat 11:48 06/02/25 94% Pain 09:31 06/02/25 Pain 11:48 06/02/25 ETCO2 09:31 06/02/25 ETCO2 11:48 06/02/25 GCS 09:31 06/02/25 GCS 11:48 06/02/25 RTS 09:31 06/02/25 RTS 11:48 06/02/25 PROCEDURES NURSING INTERVENTIONS LABS / STUDIES LABS / STUDIES ORDERED CBC w Diff Chest 1V CMP CT ABD/PEL w Cont CT Brain wo Cont EKG - ED Lipase Troponin-I Urinalysis 3 of 4 Visit Overview - KIMBERLY LEE, : 1940, , CLINICAL IMPRESSION ACUTE EPIGASTRIC ABDOMINAL PAIN CELLULITIS OF THE BACK 4 of 4 Normal [facility] ED VITALS FLOW SHEETon 06-02 ED VITALS FLOW SHEET Vitals - ALEN LEE NE, : 1940, , Vital Sign Flow Sheet [place] [address] [place] [address] [id number] 06/02/2025 Patient: KIMBERLY LEE K Sex: Female : 1940 Age: 85y Measurements Wt: 61.7 kg, Ht/Alcides: 59.0 in, BMI: 27.47 Measured Time BP MAP HR RR O2Sat ETCO2 Temp Pain GCS RTS 11:48 06/02/2025 77 94% 11:47 06/02/2025 158/80 101 74 11:38 06/02/2025 71 95% 11:33 06/02/2025 73 96% 11:31 06/02/2025 143/65 93 74 11:17 06/02/2025 164/76 106 79 11:13 06/02/2025 78 93% 10:46 06/02/2025 155/77 112 80 10:33 06/02/2025 70 91% 10:31 06/02/2025 158/85 120 78 10:28 06/02/2025 71 93% 10:23 06/02/2025 72 92% 10:18 06/02/2025 67 92% 10:17 06/02/2025 162/88 117 74 10:13 06/02/2025 64 96% 1 of 2 Vitals - LEE, KIMBERLY, : 1940, , Measured Time BP MAP HR RR O2Sat ETCO2 Temp Pain GCS RTS 10:08 06/02/2025 80 95% 10:03 06/02/2025 79 96% 09:47 06/02/2025 177/90 119 71 09:33 06/02/2025 185/99 128 79 16 97% RA 97.2 F 7 09:31 06/02/2025 192/145 156 78 2 of 2 Normal [facility] LIPASEon 06-02-2025 Lipase [Catalytic activity/Vol] 22.0 U/L Normal 15.0 - 78.0 [facility] Comment on above: Result Comment: *PLE ASE NOTE THAT RANGES FOR LIPASE HAVE CHANGED OF 10/24/23 DUE TO AN ASSAY UPDATE BY THE CONTRACT NEGOTIATION SPECIALIST.THE NEW ASSAY RANGE IS 6-250 U/L, WITH A REFERENCE RANGE OF 16-77 U/L. Performed By: #### 2 [id number] #### [facility],[address] [place] [address] TROPONINon 06-02-2025 HS TROPONIN 6.2 pg/mL Normal 0.0 - 51.4 [facility] Comment on above: Performed By: #### 2 [id number] ####[facility],[address] [place] [address] URINALYSISon 06-02-2025 Bilirubin Ql (U) Negative Normal NORMAL: NEGATIVE [facility] Comment on above: Performed By: #### 2 47427 #### [facility],[address] [place] [address] Clarity (U) clear Normal NORMAL: CLEAR [facility] Comment on above: Performed By: #### 2 [id number] #### [facility],[address] [place] [address] Color (U) p.yel Normal NORMAL: YELLOW [facility] Comment on above: Performed By: #### 2 [id number] #### [facility],[address] [place] [address] Glucose Ql (U) NORM Normal NORMAL: NORMAL [facility] Comment on above: Performed By: #### 2 23730 #### [facility],[address] [place] [address] Hemoglobin Ql (U) Negative Normal NORMAL: NEGATIVE [facility] Comment on above: Performed By: #### 2 11247 #### [facility],[address] [place] [address] Ketone Negative Normal NORMAL: NEGATIVE [facility] Comment on above: Performed By: #### 2 70189 #### [facility],[address] [place] [address] Leukocytes Negative Normal NORMAL: NEGATIVE [facility] Comment on above: Performed By: #### 2 97542 #### [facility],[address] [place] [address] Nitrite Ql (U) Negative Normal NORMAL: NEGATIVE [facility] Comment on above: Performed By: #### 2 [id number] #### [facility],[address] [place] [address] 85652 pH (U) 8 [pH] Normal NORMAL: 5.0-8.0 [facility] Comment on above: Performed By: #### 2 71404 #### [facility],[address] [place] [address] Protein Ql (U) Negative Normal NORMAL: NEGATIVE [facility] Comment on above: Performed By: #### 2 72221 #### [facility],[address] [place] [address] Sp [place] 1.010 Normal NORMAL: 1.010-1.030 [facility] Comment on above: Performed By: #### 2 91381 #### [facility],[address] [place] [address] Specimen Type R Normal [facility] Comment on above: Performed By: #### 2 85534 #### [facility],[address] [place] [address] Urinalysis dipstick W Reflex Microscopic panel (U) NOT INDICATED Normal [facility] Comment on above: Performed By: #### 2 [id number] #### [facility],[address] [place] [address] Urobilinog NORM Normal NORMAL: NORMAL [facility] Comment on above: Performed By: #### 2 40829 #### [facility],[address] [place] [address] CBC + DIFFon 05-27-2025 Baso # 0.01 x10EE3/UL Normal 0.00 - 0.10 [facility] Comment on above: Performed By: #### 2 36562 ####[facility],[address] [place] [address] Basophils/100 WBC (Bld) 0.3 % Normal 0.0 - 2.0 [facility] Comment on above: Performed By: #### 2 45563 ####[facility],[address] [place] [address] CBC + DIFF Normal [facility] Comment on above: Result Comment: CBC- COMPLETE BLOOD COUNT Performed By: #### 2 84429 ####[place] [address] EO # 0.06 x10EE3/UL Normal 0.00 - 0.50 [facility] Comment on above: Performed By: #### 2 05176 ####[facility],[address] [place] [address] Eosinophils/100 WBC (Bld) 1.2 % Normal 0.0 - 7.0 [facility] Comment on above: Performed By: #### 2 96770 ####[place] [address] Erythrocyte distribution width (RBC) [Ratio] 15.0 % Normal 12.0 - 15.6 [facility] Comment on above: Performed By: #### 2 80122 ####[place] [address] Hematocrit (Bld) [Volume fraction] 39.6 % Normal 34.0 - 46.0 [facility] Comment on above: Performed By: #### 2 55987 ####[place] [address] Hemoglobin (Bld) [Mass/Vol] 13.2 g/dL Normal 12.0 - 16.0 [facility] Comment on above: Performed By: #### 2 49270 ####[place] [id number] Lymph # 1.38 x10EE3/UL Normal 0.80 - 2.80 [facility] Comment on above: Performed By: #### 2 40535 ####[place] [id number] Lymphocytes/100 WBC (Bld) 27.7 % Normal 20.0 - 45.0 [facility] Comment on above: Performed By: #### 2 80934 ####[facility],[address] [place] [address] MANUAL DIFF N/A Normal [facility] Comment on above: Performed By: #### 2 99045 ####[facility],[address] [place] [address] MCH (RBC) [Entitic mass] 31 pg Normal 27 - 33 [facility] Comment on above: Performed By: #### 2 60397 ####[facility],[address] [place] [address] MCHC 33 X10 3 Normal 32 - 36 [facility] Comment on above: Performed By: #### 2 51006 ####[place] [address] MCV (RBC) [Entitic vol] 92 fL Normal 80 - 99 [facility] Comment on above: Performed By: #### 2 75604 ####[place] [address] [place] # 0.44 x10EE3/UL Normal 0.20 - 1.00 [facility] Comment on above: Performed By: #### 2 39677 ####[facility],[address] [place] [address] MONOS % 9.0 % Normal 0.0 - 10.0 [facility] Comment on above: Performed By: #### 2 93522 ####[facility],[address] [place] [address] Morphology Sam (Bld) [Interp] N/A Normal [facility] Comment on above: Performed By: #### 2 72741 ####[place] [address] Neut # 3.08 x10EE3/UL Normal 1.50 - 7.10 [facility] Comment on above: Performed By: #### 2 92737 ####[place] [address] Neutrophils/100 WBC (Bld) 61.9 % Normal 46.0 - 76.0 [facility] Comment on above: Performed By: #### 2 65113 ####[facility],[address] [place] [address] 67726 PLATELET 164 x10EE3/UL Normal 150 - 450 [facility] Comment on above: Performed By: #### 2 14900 ####[facility],[address] [place] [address] 28763 Platelet mean volume (Bld) [Entitic vol] 9.1 fL Normal 6.6 - 10.5 [facility] Comment on above: Result Comment: AUTO MATED DIFFERENTIAL Performed By: #### 2 00548 ####[facility],[address] [place] [address] 03452 RBC 4.29 x 10EE6/UL Normal 4.10 - 5.30 [facility] Comment on above: Performed By: #### 2 20046 ####[facility],[address] [place] [address] 28791 WBC 5.0 x 10EE3/UL Normal 4.5 - 10.8 [facility] Comment on above: Performed By: #### 2 61424 ####[facility],[address] [place] [address] 42237 CHEST 2 VIEWSon 05-27-2025 CHEST 2 VIEWS Normal [facility] CMP with eGFRon 05-27-2025 AGE 85 years Normal [facility] Comment on above: Performed By: #### 2 76470 ####[facility],[address] [place] [address] 46567 Albumin [Mass/Vol] 3.5 g/dL Normal 3.4 - 5.0 [facility] Comment on above: Performed By: #### 2 47311 ####[facility],[address] [place] [address] 97152 Albumin/Globulin [Mass ratio] 1.1 {ratio} Normal 0.9 - 1.6 [facility] Comment on above: Performed By: #### 2 63281 ####[facility],[address] [place] [address] 50006 ALK PHOS 86 U/L Normal 46 - 116 [facility] Comment on above: Performed By: #### 2 35650 ####[facility],[address] [place] [address] 29980 ALT [Catalytic activity/Vol] 27 U/L Normal 16 - 63 [facility] Comment on above: Performed By: #### 2 87848 ####[facility],[address] [place] [address] 72410 Anion gap [Moles/Vol] 5 mmol/L Low 10 - 20 [facility] Comment on above: Performed By: #### 2 55693 ####[facility],[address] [place] [address] 29464 AST [Catalytic activity/Vol] 19 U/L Normal 13 - 39 [facility] Comment on above: Performed By: #### 2 82002 ####[facility],[address] [place] [address] 38644 B/C RATIO 19 ratio Normal 0 - 30 [facility] Comment on above: Performed By: #### 2 93048 ####[facility],[address] [place] [address] 58384 Bilirubin [Mass/Vol] 0.8 mg/dL Normal 0.2 - 1.0 [facility] Comment on above: Performed By: #### 2 64172 ####[facility],[address] [place] [address] 20263 Calcium [Mass/Vol] 8.9 mg/dL Normal 8.5 - 10.1 [facility] Comment on above: Performed By: #### 2 29057 ####[facility],[address] [place] [address] 68686 Chloride [Moles/Vol] 102 mmol/L Normal 98 - 107 [facility] Comment on above: Performed By: #### 2 96265 ####[facility],[address] [place] [address] 61031 CMP with eGFR Normal [facility] Comment on above: Result Comment: COMP REHENSIVE METABOLIC PANEL Performed By: #### 2 10488 ####[facility],[address] [place], [place] [id number] CO2 [Moles/Vol] 36.7 mmol/L High 21.0 - 32.0 [facility] Comment on above: Performed By: #### 2 96724 ####[facility],[address] [place] [address] Creatinine [Mass/Vol] 1.10 mg/dL High 0.55 - 1.02 [facility] Comment on above: Performed By: #### 2 82314 ####[facility],[address] [place] [address] eGFR 47 ML/MINUTE Low 60 - 999 [facility] Comment on above: Performed By: #### 2 47296 ####[facility],[address] [place] [address] 24143 eGFR(AA) 57 ML/MINUTE Low 60 - 999 [facility] Comment on above: Result Comment: ACCO RDING TO THE NATIONAL KIDNEY DISEASE EDUCATION PROGRAM(NKDE), A NORMAL eGFRIS A VALUE GREATER THAN OR EQUAL TO 60 ML/MIN/1.73 SQ METERS.CHRONIC KIDNEY DISEASE: <60mL/MIN/1.73 SQ METERSKIDNEY FAILURE: <15mL/MIN/1.73 SQ METERSTHIS TEST SHOULD ONLY BE USED FOR PATIENTS 18 YEARS OF AGE AND OLDER. Performed By: #### 2 45528 ####[facility],[address] [place], [place] [id number] Globulin (S) [Mass/Vol] 3.1 g/dL Normal 1.5 - 3.8 [facility] Comment on above: Performed By: #### 2 38754 ####[facility],[address] [place] [address] 69471 Glucose [Mass/Vol] 87 mg/dL Normal 74 - 106 [facility] Comment on above: Performed By: #### 2 81772 ####[facility],[address] [place], [place] [address] Potassium [Moles/Vol] 3.8 mmol/L Normal 3.5 - 5.1 [facility] Comment on above: Performed By: #### 2 78245 ####[facility],[address] [place] [address] 12794 Protein [Mass/Vol] 6.6 g/dL Normal 6.4 - 8.2 [facility] Comment on above: Performed By: #### 2 07868 ####[facility],[address] [place], [place] [address] Sodium [Moles/Vol] 140 mmol/L Normal 136 - 145 [facility] Comment on above: Performed By: #### 2 27497 ####[facility],[address] [place], [place] [address] Urea nitrogen [Mass/Vol] 21 mg/dL High 7 - 18 [facility] Comment on above: Performed By: #### 2 84441 ####[facility],[address] [place], [place] [address] LIPASEon 05-27-2025 Lipase [Catalytic activity/Vol] 24.0 U/L Normal 15.0 - 78.0 [facility] Comment on above: Result Comment: *PLE ASE NOTE THAT RANGES FOR LIPASE HAVE CHANGED OF 10/24/23 DUE TO AN ASSAYUPDATE BY THE CONTRACT NEGOTIATION SPECIALIST.THE NEW ASSAY RANGE IS 6-250 U/L, WITH A REFERENCERANGE OF 16-77 U/L. Performed By: #### 2 00118 ####[facility],[address] [place], [place] [address] TROPONIN I, HIGH SENSITIVITY on 05-27-2025 HS TROPONIN <4.0 Normal 0.0 - 51.4 [facility] Comment on above: Performed By: #### 2 90439 ####[facility],[address] [facility] [address] Cardiology Visit Reporton Cardiology Visit Report [facility] [address] [place], [place] [address] OFFICE VISIT Date of Service: 04/22/25 MR#: [id number] Acct: [id number] Name: KIMBERLY LEE Rep #: [id number] : 1940 Provider: LAURA Michel Age/Sex: 85/F Location: [facility] Status: Signed HPI HPI History of Present Illness Details: Kimberly Lee in an 85-year-old female that presents here today for a cardiovascular follow-up. She has a history of coronary artery disease with stenting to her LAD and distal RCA in 2012. She underwent a heart catheterization in June 2018 which demonstrated normal left main coronary, LAD previously stented, diagonal vessel with ostial 30 to 40% stenosis circumflex nondominant with no significant stenosis, diffusely diseased RCA. Medical therapy was recommended. Last month, pt was in to see her PCP for a cough. She was noted to be in Afib and was sent the [facility] ER. She spent a few days there, she was started on Eliquis. I do not have these records. She tells me she is seeing a hypertension and kidney specialist in [facility]. He adjusted her medications and she has since had swelling. From a cardiac standpoint, patient is doing well. She is not aware of her Afib. She does not have any chest discomfort/heaviness/tig htness. She does not have any worsening symptoms of shortness of breath. She does not have any orthopnea. She denies PND. She does not have any symptoms of congestive heart failure. She does not have any palpitations that she is aware of. She does not have any lightheadedness or dizziness. She does not have any near-syncope or syncope. She does have swelling in her legs. She ambulates with a cane. Intake Vital Signs 06/23/24 09:38 04/22/25 07:28 Height 5 ft 1 in 5 ft 1 in Weight: 139 lb BMI 26.2 BP 148/76 H Blood Pressure Location Lt brachial Position Sitting Respiration 18 Pulse 67 Pulse Source Monitor Pulse Oximetry (%) 96 Intake Visit Reasons: 18 M FU/S/P POM 03/07 Claims Specialist Required: No Is patient in pain?: No Allergies pantoprazole Allergy (Verified 06/23/24 09:41) Rash hydrocodone bitartrate (From Vicodin) Adverse Reaction (Verified 06/23/24 09:41) Other metronidazole Adverse Reaction (Verified 06/23/24 09:41) nausea Medications ???Medication ???Instructions ???Recorded ???Confirmed ???Type aspirin 81 mg tablet,delayed 81 mg PO DAILY@0800 12/27/1304/22 History release atorvastatin 40 mg tablet 40 mg PO QHS 12/27/13 04/22/25 His tory isosorbide mononitrate 60 mg 60 mg PO DAILY #90 tabs 08/10/20 0 04/22/25 Rx tablet,extended release 24 hr olopatadine 0.2 % eye drops 1 drp ophthalmic (eye) DAILY 08/2904/22/25 History (Pataday) nitroglycerin 0.4 mg sublingual 0.4 mg sublingual Q5-15M PRN chest 09/25/20 04/22/25 Rx tablet pain #25 tabs metoprolol succinate 50 mg 25 mg PO BID 08/21/21 04/22/25 His tory tablet,extended release 24 hr diltiazem HCl 120 mg 120 mg PO BID 09/03/22 04/22/25 Hi story capsule,extended release 24 hr melatonin 5 mg capsule 5 mg PO QHS PRN Sleep 09/03/22 History propylene glycol 0.6 % eye drops 1 drp ophthalmic (eye) DAILY PRN 1 11/03/21 04/22/25 History (Systane Balance) Dry Eyes ondansetron 4 mg disintegrating 4 mg PO Q8H PRN PRN Nausea #14 tab s 01/07/23 04/22/25 Rx tablet omeprazole 40 mg capsule,delayed 40 mg PO DAILY #30 caps 02/21/23 0 04/22/25 Rx release buspirone 5 mg tablet 5 mg PO BID 09/02/23 04/22/25 Hist ory cholecalciferol (vitamin D3) 125 125 mcg PO DAILY 09/02/23 04/22/25 History mcg (5,000 unit) capsule apixaban 5 mg tablet (Eliquis) 5 mg PO BID 04/22/25 04/22/25 Hist ory cetirizine 10 mg tablet (All Day 10 mg PO QDAY PRN 04/22/25 5 History Allergy (cetirizine)) clonidine HCl 0.1 mg tablet 0.1 mg PO BID PRN 04/22/25 5 History furosemide 20 mg tablet 40 mg PO DAILY 04/22/25 04/22/25 H istory lisinopril 40 mg tablet 20 mg PO DAILY 04/22/25 04/22/25 H istory potassium chloride 20 mEq 20 meq PO QDAY 04/22/25 04/22/25 H istory tablet,extended release (K-Tab) Ejection fraction %: 65 Have you fallen in the past year?: No [facility] Medical History (Updated 04/22/25 @ 10:31 by Savana SANCHEZ, PA) PAF (paroxysmal atrial fibrillation) Kidney stones Unstable angina Bilateral carotid artery stenosis GERD (gastroesophageal reflux disease) Essential (primary) hypertension Dysphagia Celiac artery stenosis Acute right hip pain LVH (left ventricular hypertrophy) Renal cysts, acquired, bilateral History of Helicobacter pylori infection Osteoarthritis History of bacterial pneumonia Hemorrhoids Diverticulosis Secondary pulmonary arterial hypertension NSTEMI (non-ST elevated myoc (more content not included)... Normal [facility] CBC + DIFFon 04-09-2025 Baso # 0.01 x10EE3/UL Normal 0.00 - 0.10 [facility] Comment on above: Performed By: #### 2 54516 ####[facility],[address] [place] [address] 28238 Basophils/100 WBC (Bld) 0.2 % Normal 0.0 - 2.0 [facility] Comment on above: Performed By: #### 2 96577 ####[facility],[address] [place] [address] 66485 CBC + DIFF Normal [facility] Comment on above: Result Comment: CBC- COMPLETE BLOOD COUNT Performed By: #### 2 28708 ####[facility],[address] [place] [address] 05843 EO # 0.09 x10EE3/UL Normal 0.00 - 0.50 [facility] Comment on above: Performed By: #### 2 50314 ####[facility],[address] [place] [address] 69245 Eosinophils/100 WBC (Bld) 1.6 % Normal 0.0 - 7.0 [facility] Comment on above: Performed By: #### 2 18159 ####[facility],[address] [place], [place] [address] Erythrocyte distribution width (RBC) [Ratio] 15.4 % Normal 12.0 - 15.6 [facility] Comment on above: Performed By: #### 2 14854 ####[facility],[address] [place] [address] Hematocrit (Bld) [Volume fraction] 39.0 % Normal 34.0 - 46.0 [facility] Comment on above: Performed By: #### 2 11546 ####[facility],[address] [place] [address] 06023 Hemoglobin (Bld) [Mass/Vol] 13.1 g/dL Normal 12.0 - 16.0 [facility] Comment on above: Performed By: #### 2 33155 ####[facility],[address] [place] [address] 48111 Lymph # 2.08 x10EE3/UL Normal 0.80 - 2.80 [facility] Comment on above: Performed By: #### 2 76950 ####[facility],[address] [place] [address] 06313 Lymphocytes/100 WBC (Bld) 35.5 % Normal 20.0 - 45.0 [facility] Comment on above: Performed By: #### 2 88822 ####[facility],[address] [place], [place] [address] MANUAL DIFF N/A Normal [facility] Comment on above: Performed By: #### 2 33603 ####[facility],[address] [place] [address] 06771 MCH (RBC) [Entitic mass] 31 pg Normal 27 - 33 [facility] Comment on above: Performed By: #### 2 75524 ####[facility],[address] [place] [address] 95205 MCHC 34 X10 3 Normal 32 - 36 [facility] Comment on above: Performed By: #### 2 74468 ####[facility],[address] [place] [address] 61117 MCV (RBC) [Entitic vol] 92 fL Normal 80 - 99 [facility] Comment on above: Performed By: #### 2 48454 ####[facility],[address] [place] [address] 49466 [place] # 0.50 x10EE3/UL Normal 0.20 - 1.00 [facility] Comment on above: Performed By: #### 2 20814 ####[facility],[address] [place] [address] 94621 MONOS % 8.6 % Normal 0.0 - 10.0 [facility] Comment on above: Performed By: #### 2 72479 ####[facility],[address] [place] [address] 26617 Morphology Sam (Bld) [Interp] N/A Normal [facility] Comment on above: Performed By: #### 2 95427 ####[facility],[address] [place] [address] 28395 Neut # 3.17 x10EE3/UL Normal 1.50 - 7.10 [facility] Comment on above: Performed By: #### 2 35774 ####[facility],[address] [place] [address] 83526 Neutrophils/100 WBC (Bld) 54.1 % Normal 46.0 - 76.0 [facility] Comment on above: Performed By: #### 2 27415 ####[facility],[address] [place] [address] 61488 PLATELET 196 x10EE3/UL Normal 150 - 450 [facility] Comment on above: Performed By: #### 2 52663 ####[facility],[address] [place] [address] 51302 Platelet mean volume (Bld) [Entitic vol] 8.8 fL Normal 6.6 - 10.5 [facility] Comment on above: Result Comment: AUTO MATED DIFFERENTIAL Performed By: #### 2 49594 ####[facility],[address] [place] [address] 79073 RBC 4.24 x 10EE6/UL Normal 4.10 - 5.30 [facility] Comment on above: Performed By: #### 2 53608 ####[facility],[address] [place] [address] 25872 WBC 5.9 x 10EE3/UL Normal 4.5 - 10.8 [facility] Comment on above: Performed By: #### 2 01636 ####[facility],[address] [place] [address] 71017 CMP with eGFRon 04-09-2025 AGE 85 years Normal [facility] Comment on above: Performed By: #### 2 24277 ####[facility],[address] [place] [address] 97598 Albumin [Mass/Vol] 3.8 g/dL Normal 3.4 - 5.0 [facility] Comment on above: Performed By: #### 2 87069 ####[facility],[address] [place] [address] 54084 Albumin/Globulin [Mass ratio] 1.3 {ratio} Normal 0.9 - 1.6 [facility] Comment on above: Performed By: #### 2 45128 ####[facility],[address] [place] [address] 00976 ALK PHOS 84 U/L Normal 46 - 116 [facility] Comment on above: Performed By: #### 2 94790 ####[facility],[address] [place] [address] 54368 ALT [Catalytic activity/Vol] 24 U/L Normal 16 - 63 [facility] Comment on above: Performed By: #### 2 27867 ####[facility],[address] [place] [address] 17073 Anion gap [Moles/Vol] 11 mmol/L Normal 10 - 20 [facility] Comment on above: Performed By: #### 2 09407 ####[facility],[address] [place] [address] 25845 AST [Catalytic activity/Vol] 19 U/L Normal 13 - 39 [facility] Comment on above: Performed By: #### 2 77066 ####[facility],[address] [place] [address] 49161 B/C RATIO 22 ratio Normal 0 - 30 [facility] Comment on above: Performed By: #### 2 60465 ####[facility],[address] [place] [address] 97785 Bilirubin [Mass/Vol] 0.9 mg/dL Normal 0.2 - 1.0 [facility] Comment on above: Performed By: #### 2 25363 ####[facility],[address] [place] [address] 05958 Calcium [Mass/Vol] 9.2 mg/dL Normal 8.5 - 10.1 [facility] Comment on above: Performed By: #### 2 87524 ####[facility],[address] [place] [address] 76689 Chloride [Moles/Vol] 103 mmol/L Normal 98 - 107 [facility] Comment on above: Performed By: #### 2 01182 ####[facility],[address] [place] [address] 44927 CMP with eGFR Normal [facility] Comment on above: Result Comment: COMP REHENSIVE METABOLIC PANEL Performed By: #### 2 49375 ####[facility],[address] [place] [address] 95008 CO2 [Moles/Vol] 31.1 mmol/L Normal 21.0 - 32.0 [facility] Comment on above: Performed By: #### 2 32326 ####[facility],[address] [place] [address] Creatinine [Mass/Vol] 1.25 mg/dL High 0.55 - 1.02 [facility] Comment on above: Performed By: #### 2 15881 ####[facility],[address] [place] [address] 40995 eGFR 41 ML/MINUTE Low 60 - 999 [facility] Comment on above: Performed By: #### 2 75709 ####[place] [id number] eGFR(AA) 50 ML/MINUTE Low 60 - 999 [facility] Comment on above: Result Comment: ACCO RDING TO THE NATIONAL KIDNEY DISEASE EDUCATION PROGRAM(NKDE), A NORMAL eGFRIS A VALUE GREATER THAN OR EQUAL TO 60 ML/MIN/1.73 SQ METERS.CHRONIC KIDNEY DISEASE: <60mL/MIN/1.73 SQ METERSKIDNEY FAILURE: <15mL/MIN/1.73 SQ METERSTHIS TEST SHOULD ONLY BE USED FOR PATIENTS 18 YEARS OF AGE AND OLDER. Performed By: #### 2 19596 ####[facility],[address] [place] [address] 90918 Globulin (S) [Mass/Vol] 2.9 g/dL Normal 1.5 - 3.8 [facility] Comment on above: Performed By: #### 2 38278 ####[facility],[address] [place], [place] [address] Glucose [Mass/Vol] 128 mg/dL High 74 - 106 [facility] Comment on above: Performed By: #### 2 93336 ####[facility],[address] [place], [place] [address] Potassium [Moles/Vol] 4.1 mmol/L Normal 3.5 - 5.1 [facility] Comment on above: Performed By: #### 2 82528 ####[facility],[address] [place] [address] 42944 Protein [Mass/Vol] 6.7 g/dL Normal 6.4 - 8.2 [facility] Comment on above: Performed By: #### 2 01368 ####[facility],[address] [place] [address] 79337 Sodium [Moles/Vol] 141 mmol/L Normal 136 - 145 [facility] Comment on above: Performed By: #### 2 22789 ####[facility],[address] [place] [address] 91375 Urea nitrogen [Mass/Vol] 28 mg/dL High 7 - 18 [facility] Comment on above: Performed By: #### 2 91870 ####[facility],[address] [place] [address] ABDOMEN/PELVIS WOon 04-09 CT ABDOMEN/PELVIS WO Normal [facility] ED MED ADMINISTRATION DETAIL on 04-09-2025 ED MED ADMINISTRATION DETAIL Normal [facility] ED NURSES CLINICAL NOTEon ED NURSES CLINICAL NOTE Normal [facility] ED ORDER SHEET (CPOE ONLY)on 04-09-2025 ED ORDER SHEET (CPOE ONLY) Normal [facility] ED PHYSICIAN CLINICAL REPORT on 04-09-2025 ED PHYSICIAN CLINICAL REPORT Normal [facility] ED SUPER BILLon 04-09-2025 ED SUPER BILL Normal [facility] ED VISIT SUMMARYon ED VISIT SUMMARY Normal [facility] ED VITALS FLOW SHEETon 04-09 ED VITALS FLOW SHEET Normal [facility] LIPASEon 04-09-2025 Lipase [Catalytic activity/Vol] 23.0 U/L Normal 15.0 - 78.0 [facility] Comment on above: Result Comment: *PLE ASE NOTE THAT RANGES FOR LIPASE HAVE CHANGED OF 10/24/23 DUE TO AN ASSAYUPDATE BY THE CONTRACT NEGOTIATION SPECIALIST.THE NEW ASSAY RANGE IS 6-250 U/L, WITH A REFERENCERANGE OF 16-77 U/L. Performed By: #### 2 03921 ####[facility],[address] [place] [address] 24068 URINALYSISon 04-09-2025 Bilirubin Ql (U) Negative Normal NORMAL: NEGATIVE [facility] Comment on above: Performed By: #### 2 83842 ####[facility],[address] [place] [address] 81311 Clarity (U) clear Normal NORMAL: CLEAR [facility] Comment on above: Performed By: #### 2 32847 ####[facility],[address] [place] [address] 31773 Color (U) p.yel Normal NORMAL: YELLOW [facility] Comment on above: Performed By: #### 2 21783 ####[facility],[address] [place] [address] 82634 Glucose Ql (U) NORM Normal NORMAL: NORMAL [facility] Comment on above: Performed By: #### 2 52144 ####[facility],[address] [place] [address] 89129 Hemoglobin Ql (U) Negative Normal NORMAL: NEGATIVE [facility] Comment on above: Performed By: #### 2 33571 ####[facility],[address] [place] [address] 58434 Ketone Negative Normal NORMAL: NEGATIVE [facility] Comment on above: Performed By: #### 2 95129 ####[facility],[address] [place] [address] 75334 Leukocytes Negative Normal NORMAL: NEGATIVE [facility] Comment on above: Performed By: #### 2 10145 ####[facility],[address] [place] [address] 61941 Nitrite Ql (U) Negative Normal NORMAL: NEGATIVE [facility] Comment on above: Performed By: #### 2 47016 ####[facility],[address] [place] [address] pH (U) 7 [pH] Normal NORMAL: 5.0-8.0 [facility] Comment on above: Performed By: #### 2 11179 ####[facility],[address] [place] [address] Protein Ql (U) Negative Normal NORMAL: NEGATIVE [facility] Comment on above: Performed By: #### 2 46234 ####[facility],[address] [place] [address] Sp [place] 1.005 Low NORMAL: 1.010-1.030 [facility] Comment on above: Performed By: #### 2 08844 ####[facility],[address] [place] [address] Specimen Type R Normal [facility] Comment on above: Performed By: #### 2 00797 ####[facility],[address] [place] [address] Urinalysis dipstick W Reflex Microscopic panel (U) NOT INDICATED Normal [facility] Comment on above: Performed By: #### 2 74782 ####[facility],[address] [place] [address] Urobilinog NORM Normal NORMAL: NORMAL [facility] Comment on above: Performed By: #### 2 93343 ####[facility],[address] [place] [address] EPILATION OF TRICHIASIS, FOR CEPSon 03-23-2025 [facility] OCT OPTIC NERVE CIRRUS OU (B OTH EYES)on 03-23-2025 [facility] Radiology Study observation (narrative) [facility] BMP with eGFRon 03-22-2025 AGE 84 years Normal [facility] Comment on above: Performed By: #### 2 88208 ####[facility],[address] [place] [address] Anion gap [Moles/Vol] 9 mmol/L Low 10 - 20 [facility] Comment on above: Performed By: #### 2 01100 ####[facility],[address] [place] [address] 37236 BMP with eGFR Normal [facility] Comment on above: Result Comment: BASI C METABOLIC PANEL Performed By: #### 2 20636 ####[facility],[address] [place], [place] [address] Calcium [Mass/Vol] 8.6 mg/dL Normal 8.5 - 10.1 [facility] Comment on above: Performed By: #### 2 97252 ####[facility],[address] [place] [address] Chloride [Moles/Vol] 104 mmol/L Normal 98 - 107 [facility] Comment on above: Performed By: #### 2 34793 ####[facility],[address] [place] [address] 51483 CO2 [Moles/Vol] 30.8 mmol/L Normal 21.0 - 32.0 [facility] Comment on above: Performed By: #### 2 37620 ####[facility],[address] [place], [place] [id number] Creatinine [Mass/Vol] 1.07 mg/dL High 0.55 - 1.02 [facility] Comment on above: Performed By: #### 2 01891 ####[facility],[address] [place] [address] 18458 eGFR 49 ML/MINUTE Low 60 - 999 [facility] Comment on above: Performed By: #### 2 55869 ####[facility],[address] [place] [address] 27911 eGFR(AA) 60 ML/MINUTE Normal 60 - 999 [facility] Comment on above: Result Comment: ACCO RDING TO THE NATIONAL KIDNEY DISEASE EDUCATION PROGRAM(NKDE), A NORMAL eGFRIS A VALUE GREATER THAN OR EQUAL TO 60 ML/MIN/1.73 SQ METERS.CHRONIC KIDNEY DISEASE: <60mL/MIN/1.73 SQ METERSKIDNEY FAILURE: <15mL/MIN/1.73 SQ METERSTHIS TEST SHOULD ONLY BE USED FOR PATIENTS 18 YEARS OF AGE AND OLDER. Performed By: #### 2 23783 ####[facility],[address] [place] [address] 93528 Glucose [Mass/Vol] 111 mg/dL High 74 - 106 [facility] Comment on above: Performed By: #### 2 66662 ####[facility],[address] [place] [address] 59227 Potassium [Moles/Vol] 4.1 mmol/L Normal 3.5 - 5.1 [facility] Comment on above: Performed By: #### 2 25048 ####[address] [address] Sodium [Moles/Vol] 140 mmol/L Normal 136 - 145 [facility] Comment on above: Performed By: #### 2 93954 ####[facility],[address] [place] [address] 46450 Urea nitrogen [Mass/Vol] 19 mg/dL High 7 - 18 [facility] Comment on above: Performed By: #### 2 42630 ####[facility],[address] [place] [address] 69843 CBC + DIFFon 03-13-2025 Baso # 0.03 x10EE3/UL Normal 0.00 - 0.10 [facility] Comment on above: Performed By: #### 2 36067 ####[facility],[address] [place] [address] 65072 Basophils/100 WBC (Bld) 0.3 % Normal 0.0 - 2.0 [facility] Comment on above: Performed By: #### 2 99630 ####[facility],[address] [place] [address] 01514 CBC + DIFF Normal [facility] Comment on above: Result Comment: CBC- COMPLETE BLOOD COUNT Performed By: #### 2 54156 ####[facility],[address] [place] [address] 24067 EO # 0.27 x10EE3/UL Normal 0.00 - 0.50 [facility] Comment on above: Performed By: #### 2 74562 ####[facility],[address] [place], [place] [address] Eosinophils/100 WBC (Bld) 2.6 % Normal 0.0 - 7.0 [facility] Comment on above: Performed By: #### 2 93100 ####[place] [address] Erythrocyte distribution width (RBC) [Ratio] 14.5 % Normal 12.0 - 15.6 [facility] Comment on above: Performed By: #### 2 69198 ####[facility],[address] [place] [address] Hematocrit (Bld) [Volume fraction] 38.5 % Normal 34.0 - 46.0 [facility] Comment on above: Performed By: #### 2 93142 ####[facility],[address] [place], [place] [address] Hemoglobin (Bld) [Mass/Vol] 13.5 g/dL Normal 12.0 - 16.0 [facility] Comment on above: Performed By: #### 2 64116 ####[facility],[address] [place] [address] 39470 Lymph # 2.49 x10EE3/UL Normal 0.80 - 2.80 [facility] Comment on above: Performed By: #### 2 37490 ####[facility],[address] [place], [place] [address] Lymphocytes/100 WBC (Bld) 24.1 % Normal 20.0 - 45.0 [facility] Comment on above: Performed By: #### 2 97301 ####[facility],[address] [place] [address] MANUAL DIFF N/A Normal [facility] Comment on above: Performed By: #### 2 90977 ####[facility],[address] [place] [address] MCH (RBC) [Entitic mass] 32 pg Normal 27 - 33 [facility] Comment on above: Performed By: #### 2 00440 ####[facility],[address] [place] [address] MCHC 35 X10 3 Normal 32 - 36 [facility] Comment on above: Performed By: #### 2 78807 ####[facility],[address] [place] [address] MCV (RBC) [Entitic vol] 92 fL Normal 80 - 99 [facility] Comment on above: Performed By: #### 2 09624 ####[facility],[address] [place] [address] [place] # 0.72 x10EE3/UL Normal 0.20 - 1.00 [facility] Comment on above: Performed By: #### 2 70135 ####[facility],[address] [place] [address] MONOS % 7.0 % Normal 0.0 - 10.0 [facility] Comment on above: Performed By: #### 2 04857 ####[facility],[address] [place] [address] Morphology Sam (Bld) [Interp] N/A Normal [facility] Comment on above: Performed By: #### 2 01936 ####[place] [address] Neut # 6.82 x10EE3/UL Normal 1.50 - 7.10 [facility] Comment on above: Performed By: #### 2 87662 ####[facility],[address],[place] [address] Neutrophils/100 WBC (Bld) 66.0 % Normal 46.0 - 76.0 [facility] Comment on above: Performed By: #### 2 64442 ####[facility],[address] [place] [address] 64998 PLATELET 233 x10EE3/UL Normal 150 - 450 [facility] Comment on above: Performed By: #### 2 49359 ####[facility],[address] [place] [address] 01747 Platelet mean volume (Bld) [Entitic vol] 7.4 fL Normal 6.6 - 10.5 [facility] Comment on above: Result Comment: AUTO MATED DIFFERENTIAL Performed By: #### 2 41495 ####[facility],[address] [place] [address] 91193 RBC 4.21 x 10EE6/UL Normal 4.10 - 5.30 [facility] Comment on above: Performed By: #### 2 20150 ####[facility],[address] [place] [address] 25409 WBC 10.3 x 10EE3/UL Normal 4.5 - 10.8 [facility] Comment on above: Performed By: #### 2 33722 ####[facility],[address] [place] [address] 83574 CHEST 1 VIEWon 03-13-2025 CHEST 1 VIEW Normal [facility] CMP with eGFRon 03-13-2025 AGE 84 years Normal [facility] Comment on above: Performed By: #### 2 71827 ####[facility],[address] [place] [address] 35433 Albumin [Mass/Vol] 3.2 g/dL Low 3.4 - 5.0 [facility] Comment on above: Performed By: #### 2 09559 ####[facility],[address] [place] [address] 13243 Albumin/Globulin [Mass ratio] 1.0 {ratio} Normal 0.9 - 1.6 [facility] Comment on above: Performed By: #### 2 30716 ####[facility],[address] [place] [address] 98442 ALK PHOS 77 U/L Normal 46 - 116 [facility] Comment on above: Performed By: #### 2 60488 ####[facility],[address] [place] [address] 57109 ALT [Catalytic activity/Vol] 37 U/L Normal 16 - 63 [facility] Comment on above: Performed By: #### 2 53793 ####[facility],[address] [place] [address] 62831 Anion gap [Moles/Vol] 10 mmol/L Normal 10 - 20 [facility] Comment on above: Performed By: #### 2 82518 ####[facility],[address] [place] [address] 81413 AST [Catalytic activity/Vol] 21 U/L Normal 13 - 39 [facility] Comment on above: Performed By: #### 2 24470 ####[facility],[address] [place] [address] 28559 B/C RATIO 21 ratio Normal 0 - 30 [facility] Comment on above: Performed By: #### 2 72366 ####[facility],[address] [place] [address] 14692 Bilirubin [Mass/Vol] 0.6 mg/dL Normal 0.2 - 1.0 [facility] Comment on above: Performed By: #### 2 40791 ####[facility],[address] [place] [address] 36765 Calcium [Mass/Vol] 9.3 mg/dL Normal 8.5 - 10.1 [facility] Comment on above: Performed By: #### 2 82608 ####[facility],[address] [place] [address] 94502 Chloride [Moles/Vol] 99 mmol/L Normal 98 - 107 [facility] Comment on above: Performed By: #### 2 73472 ####[facility],[address] [place] [address] 86892 CMP with eGFR Normal [facility] Comment on above: Result Comment: COMP REHENSIVE METABOLIC PANEL Performed By: #### 2 65777 ####[facility],[address] [place] [address] 22848 CO2 [Moles/Vol] 31.9 mmol/L Normal 21.0 - 32.0 [facility] Comment on above: Performed By: #### 2 39277 ####[facility],[address] [place] [address] Creatinine [Mass/Vol] 1.45 mg/dL High 0.55 - 1.02 [facility] Comment on above: Performed By: #### 2 08842 ####[facility],[address] [place], [place] [address] eGFR 35 ML/MINUTE Low 60 - 999 [facility] Comment on above: Performed By: #### 2 28157 ####[facility],[address] [place] [address] 13410 eGFR(AA) 42 ML/MINUTE Low 60 - 999 [facility] Comment on above: Result Comment: ACCO RDING TO THE NATIONAL KIDNEY DISEASE EDUCATION PROGRAM(NKDE), A NORMAL eGFRIS A VALUE GREATER THAN OR EQUAL TO 60 ML/MIN/1.73 SQ METERS.CHRONIC KIDNEY DISEASE: <60mL/MIN/1.73 SQ METERSKIDNEY FAILURE: <15mL/MIN/1.73 SQ METERSTHIS TEST SHOULD ONLY BE USED FOR PATIENTS 18 YEARS OF AGE AND OLDER. Performed By: #### 2 75042 ####[facility],[address] [place] [address] 28203 Globulin (S) [Mass/Vol] 3.1 g/dL Normal 1.5 - 3.8 [facility] Comment on above: Performed By: #### 2 70077 ####[facility],[address] [place] [address] 06806 Glucose [Mass/Vol] 133 mg/dL High 74 - 106 [facility] Comment on above: Performed By: #### 2 97256 ####[facility],[address] [place] [address] 39418 Potassium [Moles/Vol] 4.4 mmol/L Normal 3.5 - 5.1 [facility] Comment on above: Performed By: #### 2 40393 ####[facility],[address] [place] [address] 21413 Protein [Mass/Vol] 6.3 g/dL Low 6.4 - 8.2 [facility] Comment on above: Performed By: #### 2 25884 ####[facility],[address] [place] [address] 98545 Sodium [Moles/Vol] 136 mmol/L Normal 136 - 145 [facility] Comment on above: Performed By: #### 2 47542 ####[facility],[address] [place] [address] 43898 Urea nitrogen [Mass/Vol] 30 mg/dL High 7 - 18 [facility] Comment on above: Performed By: #### 2 61634 ####[facility],[address] [place], [place] [id number] CORONAVIRUS (SARS) ANTIGEN T ESTon 03-13-2025 EXTERNAL QC DONE? YES Normal [facility] Comment on above: Performed By: #### 2 71769 ####[facility],[address] [place] [address] INTERNAL CONTROL PASS Normal [facility] Comment on above: Performed By: #### 2 46116 ####[facility],[address] [place] [address] 27744 SARS ANTIGEN Negative Normal NORMAL: NEGATIVE [facility] Comment on above: Performed By: #### 2 77560 ####[facility],[address] [place], [place] [id number] SEND TO ? NO Normal [facility] Comment on above: Result Comment: SARS -CoV-2THIS TEST IS BEING USED UNDER THE FDA EUA PROCEDURE. THIS ASSAY HAS BEENVALIDATED AT [facility] FOR USE WITH NASAL AND NASOPHARYNGEAL SWABSPECIMENS.INTERPRETIVE DATATEST RESULTS SHOULD ALWAYS BE CONSIDERED IN THE CONTEXT OF CLINICALOBSERVATIONS AND EPIDEMIOLOGICAL DATA IN MAKING FINAL DIAGNOSIS AND PATIENTMANAGEMENT DECISIONS. PATIENT MANAGEMENT SHOULD FOLLOW CURRENT CDC GUIDELINES.THE SHANICE SARS ANTIGEN JINNY DOES NOT DIFFERENTIATE BETWEEN SARS-CoV & SARS-CoV-2.A POSITIVE TEST RESULT INDICATES THE PRESENCE OF SARS-CoV-2 NUCLEOCAPSID PROTEINANTIGEN, AND THE PATIENT IS INFECTED WITH THE VIRUS AND PRESUMED TO BECONTAGIOUS.A NEGATIVE TEST RESULT FOR THIS TEST MEANS THAT SARS-CoV-2 NUCLEOCAPSID PROTEINANTIGEN WAS NOT PRESENT IN THE SPECIMEN ABOVE THE LIMIT OF DETECTION. HOWEVER, ANEGATIVE RESULT DOES NOT RULE OUT COVID-19 AND SHOULD NOT BE USED THE SOLEBASIS FOR TREATMENT OR PATIENT MANAGEMENT DECISIONS. A NEGATIVE RESULT DOES NOTEXCLUDE THE POSSIBILITY OF COVID-19. NEGATIVE RESULTS, FROM PATIENTS WITHSYMPTOM ONSET BEYOND FIVE DAYS, SHOULD BE TREATED PRESUMPTIVE ANDCONFIRMATION WITH A MOLECULAR ASSAY, IF NECESSARY, FOR PATIENT MANAGEMENT, MAYBE PERFORMED.WHEN DIAGNOSTIC TESTING IS NEGATIVE, THE POSSIBLILTY OF A FALSE NEGATIVE RESULTSHOULD BE CONSIDERED IN THE CONTEXT OF A PATIENT'S RECENT EXPOSURES AND THEPRESENCE OF CLINICAL SIGNS AND SYMPTOMS CONSISTENT WITH COVID-19. THEPOSSIBILITY OF A FALSE NEGATIVE RESULT SHOULD ESPECIALLY BE CONSIDERED IF THEPATIENT'S RECENT EXPOSURES OR CLINICAL PRESENTATION INDICATE THAT COVID-19 ISLIKELY, AND DIAGNOSTIC TESTS FOR OTHER CAUSES OF ILLNESS (e.g., OTHERRESPIRATORY ILLNESS) ARE NEGATIVE. IF COVID-19 IS STILL SUSPECTED BASED ONEXPOSURE HISTORY TOGETHER WITH OTHER CLINICAL FINDINGS, RE-TESTING SHOULD BECONSIDERED BY HEALTHCARE PROVIDERS IN CONSULTATION WITH PUBLIC HEALTHAUTHORITIES. Performed By: #### 2 01314 ####[facility],[address] [id number] ED MED ADMINISTRATION DETAIL on 03-13-2025 ED MED ADMINISTRATION DETAIL Normal [facility] ED NURSES CLINICAL NOTEon ED NURSES CLINICAL NOTE Normal [facility] ED ORDER SHEET (CPOE ONLY)on 03-13-2025 ED ORDER SHEET (CPOE ONLY) Normal [facility] ED PHYSICIAN CLINICAL REPORT on 03-13-2025 ED PHYSICIAN CLINICAL REPORT Normal [facility] ED SUPER BILLon 03-13-2025 ED SUPER BILL Normal [facility] ED VISIT SUMMARYon ED VISIT SUMMARY Normal [facility] ED VITALS FLOW SHEETon 03-13 ED VITALS FLOW SHEET Normal [facility] INFLUENZA VIRUS RAPID A/Bon 03-13-2025 INFLUENZA VIRUS RAPID A/B Normal [facility] Comment on above: Performed By: #### 2 65544 ####[facility],[address] [place] [address] MAGNESIUMon 03-13-2025 Magnesium [Mass/Vol] 2.3 mg/dL Normal 1.8 - 2.4 [facility] Comment on above: Performed By: #### 2 45828 ####[facility],[address] [place] [address] TROPONINon 03-13-2025 HS TROPONIN <4.0 Normal 0.0 - 51.4 [facility] Comment on above: Performed By: #### 2 05977 ####[facility],[address] [place] [address] 57063 URINALYSISon 03-13-2025 Amorphous NONE Normal [facility] Comment on above: Performed By: #### 2 19612 ####[facility],[address] [place], [place] [id number] Bacteria NONE Normal [facility] Comment on above: Performed By: #### 2 91865 ####[facility],[address] [place], [place] [id number] Bilirubin Ql (U) Negative Normal NORMAL: NEGATIVE [facility] Comment on above: Performed By: #### 2 08215 ####[facility],[address] [place] [address] Casts NONE Normal [facility] Comment on above: Performed By: #### 2 76080 ####[facility],[address] [place] [address] 14261 Clarity (U) clear Normal NORMAL: CLEAR [facility] Comment on above: Performed By: #### 2 65390 ####[facility],[address] [place] [address] 57251 Color (U) yellow Normal NORMAL: YELLOW [facility] Comment on above: Performed By: #### 2 30149 ####[facility],[address] [place] [address] 24169 Crystals LM Nom (Urine sed) NONE Normal [facility] Comment on above: Performed By: #### 2 40553 ####[facility],[address] [place] [address] 29206 Epi Cells OCC Normal [facility] Comment on above: Performed By: #### 2 42475 ####[facility],[address] [place] [address] 96852 Glucose Ql (U) NORM Normal NORMAL: NORMAL [facility] Comment on above: Performed By: #### 2 48513 ####[facility],[address] [place] [address] 52349 Hemoglobin Ql (U) 10 Abnormal NORMAL: NEGATIVE [facility] Comment on above: Performed By: #### 2 53405 ####[facility],[address] [place] [address] 96355 Ketone Negative Normal NORMAL: NEGATIVE [facility] Comment on above: Performed By: #### 2 38647 ####[facility],[address] [place] [address] 76448 Leukocytes 25 Abnormal NORMAL: NEGATIVE [facility] Comment on above: Performed By: #### 2 50743 ####[facility],[address] [place] [address] 96749 Mucous NONE Normal [facility] Comment on above: Performed By: #### 2 99985 ####[facility],[address] [place] [address] Nitrite Ql (U) Negative Normal NORMAL: NEGATIVE [facility] Comment on above: Performed By: #### 2 85199 ####[facility],[address] [place] [address] pH (U) 6.5 [pH] Normal NORMAL: 5.0-8.0 [facility] Comment on above: Performed By: #### 2 97889 ####[facility],[address] [place] [address] Protein Ql (U) Negative Normal NORMAL: NEGATIVE [facility] Comment on above: Performed By: #### 2 73159 ####[facility],[address] [place] [address] Rbc 0-5 Normal 0-3/hpf [facility] Comment on above: Performed By: #### 2 08617 ####[facility],[address] [place] [address] Sp [place] 1.010 Normal NORMAL: 1.010-1.030 [facility] Comment on above: Performed By: #### 2 77367 ####[facility],[address] [place] [address] Specimen Type R Normal [facility] Comment on above: Performed By: #### 2 99798 ####[facility],[address] [place] [address] Urinalysis dipstick W Reflex Microscopic panel (U) SEE BELOW Normal [facility] Comment on above: Result Comment: MICR OSCOPIC Performed By: #### 2 26923 ####[facility],[address] [place] [address] Urobilinog NORM Normal NORMAL: NORMAL [facility] Comment on above: Performed By: #### 2 59633 ####[facility],[address] [place] [address] Wbc 1-5 Normal 0-5/hpf [facility] Comment on above: Performed By: #### 2 75864 ####[facility],[address] [place] [address] 63560 Yeast NONE Normal [facility] Comment on above: Performed By: #### 2 32992 ####[facility],[address] [place] [address] 46714 BMP with eGFRon 03-08-2025 AGE 84 years Normal [facility] Comment on above: Performed By: #### 2 48250 ####[facility],[address] [place] [address] 53420 Anion gap [Moles/Vol] 4 mmol/L Low 10 - 20 [facility] Comment on above: Performed By: #### 2 70253 ####[facility],[address] [place] [address] 35467 BMP with eGFR Normal [facility] Comment on above: Result Comment: BASI C METABOLIC PANEL Performed By: #### 2 97511 ####[facility],[address] [place] [address] 95439 Calcium [Mass/Vol] 9.5 mg/dL Normal 8.5 - 10.1 [facility] Comment on above: Performed By: #### 2 19117 ####[facility],[address] [place] [address] 99701 Chloride [Moles/Vol] 94 mmol/L Low 98 - 107 [facility] Comment on above: Performed By: #### 2 70837 ####[facility],[address] [place] [address] 13276 CO2 [Moles/Vol] 37.0 mmol/L High 21.0 - 32.0 [facility] Comment on above: Performed By: #### 2 77751 ####[facility],[address] [place] [address] 84853 Creatinine [Mass/Vol] 1.02 mg/dL Normal 0.55 - 1.02 [facility] Comment on above: Performed By: #### 2 72561 ####[facility],[address] [place] [address] 62735 eGFR 52 ML/MINUTE Low 60 - 999 [facility] Comment on above: Performed By: #### 2 63997 ####[facility],[address] [place] [address] 01788 GFR/1.73 sq M.predicted among non-blacks MDRD (S/P/Bld) [Vol rate/Area] mL/min/{1.73_m2} Normal 60 - 999 [facility] Comment on above: Result Comment: ACCO RDING TO THE NATIONAL KIDNEY DISEASE EDUCATION PROGRAM(NKDE), A NORMAL eGFRIS A VALUE GREATER THAN OR EQUAL TO 60 ML/MIN/1.73 SQ METERS.CHRONIC KIDNEY DISEASE: <60mL/MIN/1.73 SQ METERSKIDNEY FAILURE: <15mL/MIN/1.73 SQ METERSTHIS TEST SHOULD ONLY BE USED FOR PATIENTS 18 YEARS OF AGE AND OLDER. Performed By: #### 2 88198 ####[facility],[address] [place] [address] 64162 Glucose [Mass/Vol] 120 mg/dL High 74 - 106 [facility] Comment on above: Performed By: #### 2 78450 ####[facility],[address] [place] [address] 28635 Potassium [Moles/Vol] 3.6 mmol/L Normal 3.5 - 5.1 [facility] Comment on above: Performed By: #### 2 98244 ####[facility],[address] [place] [address] 32839 Sodium [Moles/Vol] 131 mmol/L Low 136 - 145 [facility] Comment on above: Performed By: #### 2 15039 ####[facility],[address] [place] [address] 23968 Urea nitrogen [Mass/Vol] 27 mg/dL High 7 - 18 [facility] Comment on above: Performed By: #### 2 03685 ####[facility],[address] [place] [address] 28211 BMP with eGFRon 03-07-2025 AGE 84 years Normal [facility] Comment on above: Performed By: #### 2 36304 ####[facility],[address] [place] [address] 31977 Anion gap [Moles/Vol] 6 mmol/L Low 10 - 20 [facility] Comment on above: Performed By: #### 2 48272 ####[facility],[address] [place] [address] 45922 BMP with eGFR Normal [facility] Comment on above: Result Comment: BASI C METABOLIC PANEL Performed By: #### 2 91792 ####[facility],[address] [place] [address] 79578 Calcium [Mass/Vol] 9.4 mg/dL Normal 8.5 - 10.1 [facility] Comment on above: Performed By: #### 2 65193 ####[facility],[address] [place] [address] 98345 Chloride [Moles/Vol] 90 mmol/L Low 98 - 107 [facility] Comment on above: Performed By: #### 2 46980 ####[facility],[address] [place] [address] 16994 CO2 [Moles/Vol] 35.4 mmol/L High 21.0 - 32.0 [facility] Comment on above: Performed By: #### 2 86327 ####[facility],[address] [place] [address] 48499 Creatinine [Mass/Vol] 1.23 mg/dL High 0.55 - 1.02 [facility] Comment on above: Performed By: #### 2 33617 ####[facility],[address] [place] [address] 15819 eGFR 42 ML/MINUTE Low 60 - 999 [facility] Comment on above: Performed By: #### 2 30753 ####[facility],[address] [place] [address] 14149 eGFR(AA) 51 ML/MINUTE Low 60 - 999 [facility] Comment on above: Result Comment: ACCO RDING TO THE NATIONAL KIDNEY DISEASE EDUCATION PROGRAM(NKDE), A NORMAL eGFRIS A VALUE GREATER THAN OR EQUAL TO 60 ML/MIN/1.73 SQ METERS.CHRONIC KIDNEY DISEASE: <60mL/MIN/1.73 SQ METERSKIDNEY FAILURE: <15mL/MIN/1.73 SQ METERSTHIS TEST SHOULD ONLY BE USED FOR PATIENTS 18 YEARS OF AGE AND OLDER. Performed By: #### 2 39680 ####[facility],[address] [place] [address] 74831 Glucose [Mass/Vol] 146 mg/dL High 74 - 106 [facility] Comment on above: Performed By: #### 2 94038 ####[facility],[address] [place] [address] 54697 Potassium [Moles/Vol] 3.6 mmol/L Normal 3.5 - 5.1 [facility] Comment on above: Performed By: #### 2 79384 ####[facility],[address] [place] [address] 31264 Sodium [Moles/Vol] 128 mmol/L Low 136 - 145 [facility] Comment on above: Performed By: #### 2 01117 ####[facility],[address] [place] [address] 24461 Urea nitrogen [Mass/Vol] 27 mg/dL High 7 - 18 [facility] Comment on above: Performed By: #### 2 76058 ####[facility],[address] [place] [address] 28682 AGE 84 years Normal [facility] Comment on above: Performed By: #### 2 35801 ####[facility],[address] [place] [address] 10722 Anion gap [Moles/Vol] 9 mmol/L Low 10 - 20 [facility] Comment on above: Performed By: #### 2 26815 ####[facility],[address] [place] [address] 36189 BMP with eGFR Normal [facility] Comment on above: Result Comment: BASI C METABOLIC PANEL Performed By: #### 2 71282 ####[facility],[address] [place], [place] [address] Calcium [Mass/Vol] 9.4 mg/dL Normal 8.5 - 10.1 [facility] Comment on above: Performed By: #### 2 96637 ####[facility],[address] [place], [place] [address] Chloride [Moles/Vol] 87 mmol/L Low 98 - 107 [facility] Comment on above: Performed By: #### 2 37101 ####[facility],[address] [place], [place] [address] CO2 [Moles/Vol] 32.0 mmol/L Normal 21.0 - 32.0 [facility] Comment on above: Performed By: #### 2 63891 ####[facility],[address] [place], [place] [address] Creatinine [Mass/Vol] 1.18 mg/dL High 0.55 - 1.02 [facility] Comment on above: Performed By: #### 2 01990 ####[facility],[address] [place] [address] 64010 eGFR 44 ML/MINUTE Low 60 - 999 [facility] Comment on above: Performed By: #### 2 26073 ####[facility],[address] [place] [address] 64543 eGFR(AA) 53 ML/MINUTE Low 60 - 999 [facility] Comment on above: Result Comment: ACCO RDING TO THE NATIONAL KIDNEY DISEASE EDUCATION PROGRAM(NKDE), A NORMAL eGFRIS A VALUE GREATER THAN OR EQUAL TO 60 ML/MIN/1.73 SQ METERS.CHRONIC KIDNEY DISEASE: <60mL/MIN/1.73 SQ METERSKIDNEY FAILURE: <15mL/MIN/1.73 SQ METERSTHIS TEST SHOULD ONLY BE USED FOR PATIENTS 18 YEARS OF AGE AND OLDER. Performed By: #### 2 60509 ####[facility],[address] [place] [address] 74772 Glucose [Mass/Vol] 192 mg/dL High 74 - 106 [facility] Comment on above: Performed By: #### 2 70686 ####[facility],[address] [place] [address] 11617 Potassium [Moles/Vol] 3.7 mmol/L Normal 3.5 - 5.1 [facility] Comment on above: Performed By: #### 2 46158 ####[facility],[address] [place] [address] 13355 Sodium [Moles/Vol] 124 mmol/L Low 136 - 145 [facility] Comment on above: Performed By: #### 2 96719 ####[facility],[address] [place] [address] 26300 Urea nitrogen [Mass/Vol] 23 mg/dL High 7 - 18 [facility] Comment on above: Performed By: #### 2 89295 ####[facility],[address] [place] [address] 56124 AGE 84 years Normal [facility] Comment on above: Performed By: #### 2 59463 ####[facility],[address] [place] [address] 54232 Anion gap [Moles/Vol] 6 mmol/L Low 10 - 20 [facility] Comment on above: Performed By: #### 2 89858 ####[facility],[address] [place] [address] 67140 BMP with eGFR Normal [facility] Comment on above: Result Comment: BASI C METABOLIC PANEL Performed By: #### 2 26954 ####[facility],[address] [place] [address] 16263 Calcium [Mass/Vol] 9.3 mg/dL Normal 8.5 - 10.1 [facility] Comment on above: Performed By: #### 2 12225 ####[facility],[address] [place] [address] 34146 Chloride [Moles/Vol] 89 mmol/L Low 98 - 107 [facility] Comment on above: Performed By: #### 2 38146 ####[facility],[address] [place] [address] 59907 CO2 [Moles/Vol] 34.5 mmol/L High 21.0 - 32.0 [facility] Comment on above: Performed By: #### 2 90521 ####[facility],[address] [place] [address] 59087 Creatinine [Mass/Vol] 1.16 mg/dL High 0.55 - 1.02 [facility] Comment on above: Performed By: #### 2 15207 ####[facility],[address] [place] [address] 95703 eGFR 45 ML/MINUTE Low 60 - 999 [facility] Comment on above: Performed By: #### 2 00433 ####[facility],[address] [place] [address] 20501 eGFR(AA) 54 ML/MINUTE Low 60 - 999 [facility] Comment on above: Result Comment: ACCO RDING TO THE NATIONAL KIDNEY DISEASE EDUCATION PROGRAM(NKDE), A NORMAL eGFRIS A VALUE GREATER THAN OR EQUAL TO 60 ML/MIN/1.73 SQ METERS.CHRONIC KIDNEY DISEASE: <60mL/MIN/1.73 SQ METERSKIDNEY FAILURE: <15mL/MIN/1.73 SQ METERSTHIS TEST SHOULD ONLY BE USED FOR PATIENTS 18 YEARS OF AGE AND OLDER. Performed By: #### 2 23507 ####[facility],[address] [place] [address] 63699 Glucose [Mass/Vol] 182 mg/dL High 74 - 106 [facility] Comment on above: Performed By: #### 2 50234 ####[facility],[address] [place] [address] 49299 Potassium [Moles/Vol] 3.8 mmol/L Normal 3.5 - 5.1 [facility] Comment on above: Performed By: #### 2 69141 ####[facility],[address] [place] [address] 49572 Sodium [Moles/Vol] 126 mmol/L Low 136 - 145 [facility] Comment on above: Performed By: #### 2 70119 ####[facility],[address] [place] [address] 71508 Urea nitrogen [Mass/Vol] 21 mg/dL High 7 - 18 [facility] Comment on above: Performed By: #### 2 68496 ####[facility],[address] [place] [address] 50214 CV ECHO COMPLETE WITHOUT CON TRASTon 03-07-2025 CV ECHO COMPLETE WITHOUT CONTRAST Normal [facility] MAGNESIUMon 03-07-2025 Magnesium [Mass/Vol] 2.1 mg/dL Normal 1.8 - 2.4 [facility] Comment on above: Performed By: #### 2 50542 ####[facility],[address] [place] [address] 20531 CBC + DIFFon 03-06-2025 Baso # 0.03 x10EE3/UL Normal 0.00 - 0.10 [facility] Comment on above: Performed By: #### 2 93329 ####[facility],[address] [place] [address] 92896 Basophils/100 WBC (Bld) 0.3 % Normal 0.0 - 2.0 [facility] Comment on above: Performed By: #### 2 10075 ####[facility],[address] [place] [address] 63378 CBC + DIFF Normal [facility] Comment on above: Result Comment: CBC- COMPLETE BLOOD COUNT Performed By: #### 2 88611 ####[place] [address] EO # 0.11 x10EE3/UL Normal 0.00 - 0.50 [facility] Comment on above: Performed By: #### 2 47009 ####[place] [address] Eosinophils/100 WBC (Bld) 1.3 % Normal 0.0 - 7.0 [facility] Comment on above: Performed By: #### 2 93794 ####[place] [address] Erythrocyte distribution width (RBC) [Ratio] 14.1 % Normal 12.0 - 15.6 [facility] Comment on above: Performed By: #### 2 87571 ####[place] [address] Hematocrit (Bld) [Volume fraction] 41.0 % Normal 34.0 - 46.0 [facility] Comment on above: Performed By: #### 2 25760 ####[place] [address] Hemoglobin (Bld) [Mass/Vol] 14.2 g/dL Normal 12.0 - 16.0 [facility] Comment on above: Performed By: #### 2 18093 ####[place] [address] Lymph # 1.59 x10EE3/UL Normal 0.80 - 2.80 [facility] Comment on above: Performed By: #### 2 13735 ####[place] [address] Lymphocytes/100 WBC (Bld) 18.7 % Low 20.0 - 45.0 [facility] Comment on above: Performed By: #### 2 15347 ####[place] [address] MANUAL DIFF N/A Normal [facility] Comment on above: Performed By: #### 2 08165 ####[facility],[address] [place] [address] MCH (RBC) [Entitic mass] 32 pg Normal 27 - 33 [facility] Comment on above: Performed By: #### 2 56224 ####[facility],[address] [place] [address] MCHC 35 X10 3 Normal 32 - 36 [facility] Comment on above: Performed By: #### 2 56013 ####[facility],[address] [place] [address] MCV (RBC) [Entitic vol] 92 fL Normal 80 - 99 [facility] Comment on above: Performed By: #### 2 01398 ####[facility],[address] [place] [address] [place] # 0.85 x10EE3/UL Normal 0.20 - 1.00 [facility] Comment on above: Performed By: #### 2 81941 ####[facility],[address] [place] [address] MONOS % 10.0 % Normal 0.0 - 10.0 [facility] Comment on above: Performed By: #### 2 51945 ####[facility],[address] [place] [address] Morphology Sam (Bld) [Interp] N/A Normal [facility] Comment on above: Performed By: #### 2 17344 ####[place] [address] Neut # 5.92 x10EE3/UL Normal 1.50 - 7.10 [facility] Comment on above: Performed By: #### 2 78435 ####[place] [address] Neutrophils/100 WBC (Bld) 69.7 % Normal 46.0 - 76.0 [facility] Comment on above: Performed By: #### 2 34935 ####[facility],[address] [place] [address] PLATELET 147 x10EE3/UL Low 150 - 450 [facility] Comment on above: Performed By: #### 2 11402 ####[facility],[address] [place] [address] Platelet mean volume (Bld) [Entitic vol] 9.6 fL Normal 6.6 - 10.5 [facility] Comment on above: Result Comment: AUTO MATED DIFFERENTIAL Performed By: #### 2 72623 ####[facility],[address] [place] [address] RBC 4.46 x 10EE6/UL Normal 4.10 - 5.30 [facility] Comment on above: Performed By: #### 2 85800 ####[facility],[address] [place] [address] WBC 8.5 x 10EE3/UL Normal 4.5 - 10.8 [facility] Comment on above: Performed By: #### 2 56346 ####[facility],[address] [place] [address] CHEST 1 VIEWon 03-06-2025 CHEST 1 VIEW Normal [facility] CORONAVIRUS (SARS) ANTIGEN T ESTon 03-06-2025 EXTERNAL QC DONE? YES Normal [facility] Comment on above: Performed By: #### 2 71409 ####[facility],[address] [place] [address] INTERNAL CONTROL PASS Normal [facility] Comment on above: Performed By: #### 2 42599 ####[facility],[address] [place] [address] SARS ANTIGEN Negative Normal NORMAL: NEGATIVE [facility] Comment on above: Performed By: #### 2 83797 ####[facility],[address] [place] [address] SEND TO ? NO Normal [facility] Comment on above: Result Comment: SARS -CoV-2THIS TEST IS BEING USED UNDER THE FDA EUA PROCEDURE. THIS ASSAY HAS BEENVALIDATED AT [facility] FOR USE WITH NASAL AND NASOPHARYNGEAL SWABSPECIMENS.INTERPRETIVE DATATEST RESULTS SHOULD ALWAYS BE CONSIDERED IN THE CONTEXT OF CLINICALOBSERVATIONS AND EPIDEMIOLOGICAL DATA IN MAKING FINAL DIAGNOSIS AND PATIENTMANAGEMENT DECISIONS. PATIENT MANAGEMENT SHOULD FOLLOW CURRENT CDC GUIDELINES.THE SHANICE SARS ANTIGEN JINNY DOES NOT DIFFERENTIATE BETWEEN SARS-CoV & SARS-CoV-2.A POSITIVE TEST RESULT INDICATES THE PRESENCE OF SARS-CoV-2 NUCLEOCAPSID PROTEINANTIGEN, AND THE PATIENT IS INFECTED WITH THE VIRUS AND PRESUMED TO BECONTAGIOUS.A NEGATIVE TEST RESULT FOR THIS TEST MEANS THAT SARS-CoV-2 NUCLEOCAPSID PROTEINANTIGEN WAS NOT PRESENT IN THE SPECIMEN ABOVE THE LIMIT OF DETECTION. HOWEVER, ANEGATIVE RESULT DOES NOT RULE OUT COVID-19 AND SHOULD NOT BE USED THE SOLEBASIS FOR TREATMENT OR PATIENT MANAGEMENT DECISIONS. A NEGATIVE RESULT DOES NOTEXCLUDE THE POSSIBILITY OF COVID-19. NEGATIVE RESULTS, FROM PATIENTS WITHSYMPTOM ONSET BEYOND FIVE DAYS, SHOULD BE TREATED PRESUMPTIVE ANDCONFIRMATION WITH A MOLECULAR ASSAY, IF NECESSARY, FOR PATIENT MANAGEMENT, MAYBE PERFORMED.WHEN DIAGNOSTIC TESTING IS NEGATIVE, THE POSSIBLILTY OF A FALSE NEGATIVE RESULTSHOULD BE CONSIDERED IN THE CONTEXT OF A PATIENT'S RECENT EXPOSURES AND THEPRESENCE OF CLINICAL SIGNS AND SYMPTOMS CONSISTENT WITH COVID-19. THEPOSSIBILITY OF A FALSE NEGATIVE RESULT SHOULD ESPECIALLY BE CONSIDERED IF THEPATIENT'S RECENT EXPOSURES OR CLINICAL PRESENTATION INDICATE THAT COVID-19 ISLIKELY, AND DIAGNOSTIC TESTS FOR OTHER CAUSES OF ILLNESS (e.g., OTHERRESPIRATORY ILLNESS) ARE NEGATIVE. IF COVID-19 IS STILL SUSPECTED BASED ONEXPOSURE HISTORY TOGETHER WITH OTHER CLINICAL FINDINGS, RE-TESTING SHOULD BECONSIDERED BY HEALTHCARE PROVIDERS IN CONSULTATION WITH PUBLIC HEALTHAUTHORITIES. Performed By: #### 2 61940 ####[facility],[address] [place], [place] [id number] ED MED ADMINISTRATION DETAIL on 03-06-2025 ED MED ADMINISTRATION DETAIL Normal [facility] ED NURSES CLINICAL NOTEon ED NURSES CLINICAL NOTE Normal [facility] ED ORDER SHEET (CPOE ONLY)on 03-06-2025 ED ORDER SHEET (CPOE ONLY) Normal [facility] ED PHYSICIAN CLINICAL REPORT on 03-06-2025 ED PHYSICIAN CLINICAL REPORT Normal [facility] ED SUPER BILLon 03-06-2025 ED SUPER BILL Normal [facility] ED VISIT SUMMARYon ED VISIT SUMMARY Normal [facility] ED VITALS FLOW SHEETon 03-06 ED VITALS FLOW SHEET Normal [facility] INFLUENZA VIRUS RAPID A/Bon 03-06-2025 INFLUENZA VIRUS RAPID A/B Normal [facility] Comment on above: Performed By: #### 2 06997 ####[facility],[address] [place] [address] 36832 MAGNESIUMon 03-06-2025 Magnesium [Mass/Vol] 2.1 mg/dL Normal 1.8 - 2.4 [facility] Comment on above: Performed By: #### 2 20187 ####[facility],[address] [place] [address] 17088 Magnesium [Mass/Vol] 1.5 mg/dL Low 1.8 - 2.4 [facility] Comment on above: Performed By: #### 2 86706 ####[facility],[address] [place] [address] 55248 NT-proBNPon 03-06-2025 Natriuretic peptide B (Bld) [Mass/Vol] 762 pg/mL High 0 - 450 [facility] Comment on above: Performed By: #### 2 03885 ####[facility],[address] [place] [address] 77750 TROPONINon 03-06-2025 HS TROPONIN <4.0 Normal 0.0 - 51.4 [facility] Comment on above: Performed By: #### 2 13680 ####[facility],[address] [place] [address] 75790 HS TROPONIN <4.0 Normal 0.0 - 51.4 [facility] Comment on above: Performed By: #### 2 90927 ####[facility],[address] [place] [address] [place] [address] PTH, INTACT [CCL]on 02-05-20 25 PTH, Intact 32 pg/mL Normal 15-65 [facility] Comment on above: Result Comment: [facility] [id number] [place], [place] [address]Llnyun Ritchie MENA M.D.[id number] Performed By: #### 2 02410 ####[facility],[address] [place] [address] 48064 BMP with eGFRon 02-03-2025 AGE 84 years Normal [facility] Comment on above: Performed By: #### 2 70316 ####[facility],[address] [place] [address] 01122 Anion gap [Moles/Vol] 9 mmol/L Low - 20 [facility] Comment on above: Performed By: #### 2 64230 ####[facility],[address] [place] [address] [place] [address] BMP with eGFR Normal [facility] Comment on above: Result Comment: BASI C METABOLIC PANEL Performed By: #### 2 35852 ####[facility],[address] [place] [address] [place] [address] Calcium [Mass/Vol] 9.3 mg/dL Normal 8.5 - 10.1 [facility] Comment on above: Performed By: #### 2 17816 ####[facility],[address] [place] [address] 54693 Chloride [Moles/Vol] 100 mmol/L Normal 98 - 107 [facility] Comment on above: Performed By: #### 2 90441 ####[facility],[address] [place] [address] [place] [address] CO2 [Moles/Vol] 33.7 mmol/L High 21.0 - 32.0 [facility] Comment on above: Performed By: #### 2 15499 ####[facility],[address] [place] [address] 83838 Creatinine [Mass/Vol] 1.41 mg/dL High 0.55 - 1.02 [facility] Comment on above: Performed By: #### 2 83283 ####[facility],[address] [place] [address] 38087 eGFR 36 ML/MINUTE Low 60 - 999 [facility] Comment on above: Performed By: #### 2 44697 ####[facility],[address] [place] [address] 68561 eGFR(AA) 43 ML/MINUTE Low 60 - 999 [facility] Comment on above: Result Comment: ACCO RDING TO THE NATIONAL KIDNEY DISEASE EDUCATION PROGRAM(NKDE), A NORMAL eGFRIS A VALUE GREATER THAN OR EQUAL TO 60 ML/MIN/1.73 SQ METERS.CHRONIC KIDNEY DISEASE: <60mL/MIN/1.73 SQ METERSKIDNEY FAILURE: <15mL/MIN/1.73 SQ METERSTHIS TEST SHOULD ONLY BE USED FOR PATIENTS 18 YEARS OF AGE AND OLDER. Performed By: #### 2 39936 ####[facility],[address] [place] [address] 33342 Glucose [Mass/Vol] 122 mg/dL High 74 - 106 [facility] Comment on above: Performed By: #### 2 82913 ####[facility],[address] [place] [address] 92936 Potassium [Moles/Vol] 3.9 mmol/L Normal 3.5 - 5.1 [facility] Comment on above: Performed By: #### 2 66881 ####[facility],[address] [place] [address] 28006 Sodium [Moles/Vol] 139 mmol/L Normal 136 - 145 [facility] Comment on above: Performed By: #### 2 67661 ####[facility],[address] [place] [address] 48401 Urea nitrogen [Mass/Vol] 36 mg/dL High 7 - 18 [facility] Comment on above: Performed By: #### 2 05981 ####[facility],[address] [place] [address] 11919 CBC + DIFFon 02-03-2025 Baso # 0.02 x10EE3/UL Normal 0.00 - 0.10 [facility] Comment on above: Performed By: #### 2 11380 ####[facility],[address] [place] [address] 97923 Basophils/100 WBC (Bld) 0.4 % Normal 0.0 - 2.0 [facility] Comment on above: Performed By: #### 2 80900 ####[facility],[address] [place] [address] CBC + DIFF Normal [facility] Comment on above: Result Comment: CBC- COMPLETE BLOOD COUNT Performed By: #### 2 01634 ####[facility],[address] [place], [place] [id number] EO # 0.16 x10EE3/UL Normal 0.00 - 0.50 [facility] Comment on above: Performed By: #### 2 10167 ####[facility],[address] [place] [address] 71519 Eosinophils/100 WBC (Bld) 3.0 % Normal 0.0 - 7.0 [facility] Comment on above: Performed By: #### 2 71548 ####[facility],[address] [place], [place] [id number] Erythrocyte distribution width (RBC) [Ratio] 14.4 % Normal 12.0 - 15.6 [facility] Comment on above: Performed By: #### 2 80901 ####[facility],[address] [place] [address] 41995 Hematocrit (Bld) [Volume fraction] 41.8 % Normal 34.0 - 46.0 [facility] Comment on above: Performed By: #### 2 15010 ####[facility],[address] [place] [address] 10037 Hemoglobin (Bld) [Mass/Vol] 14.1 g/dL Normal 12.0 - 16.0 [facility] Comment on above: Performed By: #### 2 56700 ####[facility],[address] [place] [address] Lymph # 1.70 x10EE3/UL Normal 0.80 - 2.80 [facility] Comment on above: Performed By: #### 2 78206 ####[facility],[address] [place], [place] [id number] Lymphocytes/100 WBC (Bld) 30.3 % Normal 20.0 - 45.0 [facility] Comment on above: Performed By: #### 2 42449 ####[facility],[address] [place] [address] MANUAL DIFF N/A Normal [facility] Comment on above: Performed By: #### 2 00565 ####[facility],[address] [place] [address] 17063 MCH (RBC) [Entitic mass] 32 pg Normal 27 - 33 [facility] Comment on above: Performed By: #### 2 89046 ####[facility],[address] [place] [address] 94035 MCHC 34 X10 3 Normal 32 - 36 [facility] Comment on above: Performed By: #### 2 70989 ####[facility],[address] [place] [address] 11370 MCV (RBC) [Entitic vol] 94 fL Normal 80 - 99 [facility] Comment on above: Performed By: #### 2 03067 ####[facility],[address] [place] [address] 86482 [place] # 0.38 x10EE3/UL Normal 0.20 - 1.00 [facility] Comment on above: Performed By: #### 2 00864 ####[facility],[address] [place] [address] 58578 MONOS % 6.8 % Normal 0.0 - 10.0 [facility] Comment on above: Performed By: #### 2 91322 ####[facility],[address] [place] [address] 51628 Morphology Sam (Bld) [Interp] N/A Normal [facility] Comment on above: Performed By: #### 2 98113 ####[facility],[address] [place] [address] 56692 Neut # 3.33 x10EE3/UL Normal 1.50 - 7.10 [facility] Comment on above: Performed By: #### 2 72563 ####[facility],[address] [place] [address] 88389 Neutrophils/100 WBC (Bld) 59.6 % Normal 46.0 - 76.0 [facility] Comment on above: Performed By: #### 2 77797 ####[facility],[address] [place] [address] 64450 PLATELET 162 x10EE3/UL Normal 150 - 450 [facility] Comment on above: Performed By: #### 2 87667 ####[facility],[address] [place] [address] 55466 Platelet mean volume (Bld) [Entitic vol] 9.0 fL Normal 6.6 - 10.5 [facility] Comment on above: Result Comment: AUTO MATED DIFFERENTIAL Performed By: #### 2 08368 ####[facility],[address] [place] [address] 77750 RBC 4.45 x 10EE6/UL Normal 4.10 - 5.30 [facility] Comment on above: Performed By: #### 2 54109 ####[facility],[address] [place] [address] 64852 WBC 5.6 x 10EE3/UL Normal 4.5 - 10.8 [facility] Comment on above: Performed By: #### 2 04307 ####[facility],[address] [place] [address] 01941 PTH-Intact SerPl-mCncon 01-25 Parathyrin.intact [Mass/Vol] 32 pg/mL Normal 15-65 [facility] Comment on above: Order Comment: Speci men Type: BLOOD SPECIMEN Ordering Facility: [facility] Address: [address] [place] [address] Performed By: #### 2 731-8 #### [facility] CLIA [id number] [address] [place] [address] STATES OF [facility] URIC ACIDon 02-03-2025 Urate [Mass/Vol] 8.3 mg/dL High 2.6 - 6.0 [facility] Comment on above: Performed By: #### 2 46489 ####[facility],[address] [place] [address] 28631 URINE CREATININE AND PROTEIN RATIOon 02-03-2025 CREATININE UR 88.67 mg/dl Normal [facility] Comment on above: Performed By: #### 2 89949 ####[facility],[address] [place] [address] 17540 PC RATIO 0.10 mg/dL Normal 0.00 - 10.00 [facility] Comment on above: Performed By: #### 2 52382 ####[facility],[address] [place] [address] 44231 Protein (U) [Mass/Vol] 9.20 mg/dL Normal 0.00 - 10.00 [facility] Comment on above: Performed By: #### 2 42909 ####[facility],[address] [place] [address] 04890 VITAMIN D, 25 HYDROXYon 01-25 VitD 54.70 ng/mL Normal 30.00 - 100 [facility] Comment on above: Result Comment: 25-O HD3 indicates both endogenous production and supplementation. 25-OHD2 is anindicator of exogenous sources, such as diet or supplementation. Therapy isbased on measurement of Total 25-OHD, with levels <20 ng/mL indicative ofVitamin D deficiency, while levels between 20 ng/mL and 30 ng/mL suggestinsufficiency. Optimal levels are >=30ng/mL.Vitamin D, 25-OH D3 Not EstablishedVitamin D, 25-OH D2 Not Established Performed By: #### 2 28777 ####[facility],[address] [place] [address] 61401 BMP with eGFRon 12-28-2024 AGE 84 years Normal [facility] Comment on above: Performed By: #### 2 92935 ####[facility],[address] [place] [address] 27818 Anion gap [Moles/Vol] 6 mmol/L Low 10 - 20 [facility] Comment on above: Performed By: #### 2 86503 ####[facility],[address] [place] [address] 16605 BMP with eGFR Normal [facility] Comment on above: Result Comment: BASI C METABOLIC PANEL Performed By: #### 2 20563 ####[address] [address] Calcium [Mass/Vol] 9.2 mg/dL Normal 8.5 - 10.1 [facility] Comment on above: Performed By: #### 2 42356 ####[facility],[address] [place] [address] 83028 Chloride [Moles/Vol] 103 mmol/L Normal 98 - 107 [facility] Comment on above: Performed By: #### 2 23041 ####[facility],[address] [place] [address] 80185 CO2 [Moles/Vol] 34.4 mmol/L High 21.0 - 32.0 [facility] Comment on above: Performed By: #### 2 08654 ####[facility],[address] [place] [address] 15603 Creatinine [Mass/Vol] 1.40 mg/dL High 0.55 - 1.02 [facility] Comment on above: Performed By: #### 2 98421 ####[facility],[address] [place] [address] 55990 eGFR 36 ML/MINUTE Low 60 - 999 [facility] Comment on above: Performed By: #### 2 80200 ####[facility],[address] [place] [address] 80348 eGFR(AA) 44 ML/MINUTE Low 60 - 999 [facility] Comment on above: Result Comment: ACCO RDING TO THE NATIONAL KIDNEY DISEASE EDUCATION PROGRAM(NKDE), A NORMAL eGFRIS A VALUE GREATER THAN OR EQUAL TO 60 ML/MIN/1.73 SQ METERS.CHRONIC KIDNEY DISEASE: <60mL/MIN/1.73 SQ METERSKIDNEY FAILURE: <15mL/MIN/1.73 SQ METERSTHIS TEST SHOULD ONLY BE USED FOR PATIENTS 18 YEARS OF AGE AND OLDER. Performed By: #### 2 65802 ####[facility],[address] [place] [address] 21777 Glucose [Mass/Vol] 106 mg/dL Normal 74 - 106 [facility] Comment on above: Performed By: #### 2 48103 ####[facility],[address] [place] [address] 97962 Potassium [Moles/Vol] 3.7 mmol/L Normal 3.5 - 5.1 [facility] Comment on above: Performed By: #### 2 97744 ####[facility],[address] [place] [address] 87360 Sodium [Moles/Vol] 140 mmol/L Normal 136 - 145 [facility] Comment on above: Performed By: #### 2 74239 ####[facility],[address] [place] [address] 42568 Urea nitrogen [Mass/Vol] 30 mg/dL High 7 - 18 [facility] Comment on above: Performed By: #### 2 94661 ####[facility],[address] [place] [address] EPILATION OF TRICHIASIS, FOR CEPSon 12-27-2024 [facility] EPILATION OF TRICHIASIS, FOR CEPSon 10-18-2024 [facility] OCT MACULA CIRRUS OU (BOTH E YES)on 10-18-2024 [facility] Radiology Study observation (narrative) [facility] EPILATION OF TRICHIASIS, FOR CEPSon 09-15-2024 [facility] CBC + DIFFon 09-06-2024 Baso # 0.03 x10EE3/UL Normal 0.00 - 0.10 [facility] Comment on above: Performed By: #### 2 25199 ####[facility],[address] [place] [address] Basophils/100 WBC (Bld) 0.5 % Normal 0.0 - 2.0 [facility] Comment on above: Performed By: #### 2 85164 ####[facility],[address] [place] [address] CBC + DIFF Normal [facility] Comment on above: Result Comment: CBC- COMPLETE BLOOD COUNT Performed By: #### 2 89686 ####[facility],[address] [place] [address] EO # 0.13 x10EE3/UL Normal 0.00 - 0.50 [facility] Comment on above: Performed By: #### 2 29988 ####[facility],[address] [place] [address] Eosinophils/100 WBC (Bld) 2.2 % Normal 0.0 - 7.0 [facility] Comment on above: Performed By: #### 2 48404 ####[place] [address] Erythrocyte distribution width (RBC) [Ratio] 14.4 % Normal 12.0 - 15.6 [facility] Comment on above: Performed By: #### 2 92932 ####[facility],[address] [place] [address] Hematocrit (Bld) [Volume fraction] 43.8 % Normal 34.0 - 46.0 [facility] Comment on above: Performed By: #### 2 61575 ####[facility],[address] [place] [address] 09263 Hemoglobin (Bld) [Mass/Vol] 14.7 g/dL Normal 12.0 - 16.0 [facility] Comment on above: Performed By: #### 2 50685 ####[facility],[address] [place] [address] Lymph # 1.92 x10EE3/UL Normal 0.80 - 2.80 [facility] Comment on above: Performed By: #### 2 47460 ####[facility],[address] [place], [place] [address] Lymphocytes/100 WBC (Bld) 33.1 % Normal 20.0 - 45.0 [facility] Comment on above: Performed By: #### 2 02913 ####[facility],[address] [place], [place] [address] MANUAL DIFF N/A Normal [facility] Comment on above: Performed By: #### 2 44911 ####[facility],[address] [place] [address] 47552 MCH (RBC) [Entitic mass] 32 pg Normal 27 - 33 [facility] Comment on above: Performed By: #### 2 82514 ####[facility],[address] [place] [address] 05901 MCHC 34 X10 3 Normal 32 - 36 [facility] Comment on above: Performed By: #### 2 39208 ####[facility],[address] [place] [address] 46809 MCV (RBC) [Entitic vol] 94 fL Normal 80 - 99 [facility] Comment on above: Performed By: #### 2 40706 ####[facility],[address] [place], [place] [address] [place] # 0.45 x10EE3/UL Normal 0.20 - 1.00 [facility] Comment on above: Performed By: #### 2 72576 ####[facility],[address] [place] [address] 94353 MONOS % 7.7 % Normal 0.0 - 10.0 [facility] Comment on above: Performed By: #### 2 77073 ####[facility],[address] [place] [address] Morphology Sam (Bld) [Interp] N/A Normal [facility] Comment on above: Performed By: #### 2 58528 ####[place] [address] Neut # 3.28 x10EE3/UL Normal 1.50 - 7.10 [facility] Comment on above: Performed By: #### 2 31927 ####[place] [address] Neutrophils/100 WBC (Bld) 56.6 % Normal 46.0 - 76.0 [facility] Comment on above: Performed By: #### 2 08825 ####[place] [address] PLATELET 138 x10EE3/UL Low 150 - 450 [facility] Comment on above: Performed By: #### 2 61750 ####[place] [address] Platelet mean volume (Bld) [Entitic vol] 9.3 fL Normal 6.6 - 10.5 [facility] Comment on above: Result Comment: AUTO MATED DIFFERENTIAL Performed By: #### 2 04826 ####[place] [address] RBC 4.68 x 10EE6/UL Normal 4.10 - 5.30 [facility] Comment on above: Performed By: #### 2 49753 ####[address],[place] [address] WBC 5.8 x 10EE3/UL Normal 4.5 - 10.8 [facility] Comment on above: Performed By: #### 2 42149 ####[facility],[address] [place] [address] 75040 CMP with eGFRon 09-06-2024 AGE 84 years Normal [facility] Comment on above: Performed By: #### 2 92587 ####[facility],[address] [place] [address] 36305 Albumin [Mass/Vol] 3.7 g/dL Normal 3.4 - 5.0 [facility] Comment on above: Performed By: #### 2 54237 ####[facility],[address] [place] [address] 00801 Albumin/Globulin [Mass ratio] 1.1 {ratio} Normal 0.9 - 1.6 [facility] Comment on above: Performed By: #### 2 31536 ####[facility],[address] [place] [address] 91238 ALK PHOS 96 U/L Normal 46 - 116 [facility] Comment on above: Performed By: #### 2 47750 ####[facility],[address] [place] [address] 62227 ALT [Catalytic activity/Vol] 20 U/L Normal 16 - 63 [facility] Comment on above: Performed By: #### 2 42070 ####[facility],[address] [place] [address] 36814 Anion gap [Moles/Vol] 12 mmol/L Normal 10 - 20 [facility] Comment on above: Performed By: #### 2 65587 ####[facility],[address] [place] [address] 55974 AST [Catalytic activity/Vol] 18 U/L Normal 13 - 39 [facility] Comment on above: Performed By: #### 2 47485 ####[facility],[address] [place] [address] 52024 B/C RATIO 20 ratio Normal 0 - 30 [facility] Comment on above: Performed By: #### 2 57606 ####[facility],[address] [place] [address] 97503 Bilirubin [Mass/Vol] 0.9 mg/dL Normal 0.2 - 1.0 [facility] Comment on above: Performed By: #### 2 54484 ####[facility],[address] [place] [address] 07798 Calcium [Mass/Vol] 9.8 mg/dL Normal 8.5 - 10.1 [facility] Comment on above: Performed By: #### 2 89576 ####[facility],[address] [place], [place] [address] Chloride [Moles/Vol] 102 mmol/L Normal 98 - 107 [facility] Comment on above: Performed By: #### 2 90404 ####[facility],[address] [place], [place] [address] CMP with eGFR Normal [facility] Comment on above: Result Comment: COMP REHENSIVE METABOLIC PANEL Performed By: #### 2 76213 ####[facility],[address] [place] [address] 29241 CO2 [Moles/Vol] 31.6 mmol/L Normal 21.0 - 32.0 [facility] Comment on above: Performed By: #### 2 04440 ####[facility],[address] [place] [address] 43160 Creatinine [Mass/Vol] 1.15 mg/dL High 0.55 - 1.02 [facility] Comment on above: Performed By: #### 2 52286 ####[facility],[address] [place] [address] 33719 eGFR 45 ML/MINUTE Low 60 - 999 [facility] Comment on above: Performed By: #### 2 02916 ####[facility],[address] [place] [address] 78726 eGFR(AA) 55 ML/MINUTE Low 60 - 999 [facility] Comment on above: Result Comment: ACCO RDING TO THE NATIONAL KIDNEY DISEASE EDUCATION PROGRAM(NKDE), A NORMAL eGFRIS A VALUE GREATER THAN OR EQUAL TO 60 ML/MIN/1.73 SQ METERS.CHRONIC KIDNEY DISEASE: <60mL/MIN/1.73 SQ METERSKIDNEY FAILURE: <15mL/MIN/1.73 SQ METERSTHIS TEST SHOULD ONLY BE USED FOR PATIENTS 18 YEARS OF AGE AND OLDER. Performed By: #### 2 56037 ####[address] [address] Globulin (S) [Mass/Vol] 3.5 g/dL Normal 1.5 - 3.8 [facility] Comment on above: Performed By: #### 2 05514 ####[address] [address] Glucose [Mass/Vol] 109 mg/dL High 74 - 106 [facility] Comment on above: Performed By: #### 2 58852 ####[address] [address] Potassium [Moles/Vol] 4.1 mmol/L Normal 3.5 - 5.1 [facility] Comment on above: Performed By: #### 2 76940 ####[address] [address] Protein [Mass/Vol] 7.2 g/dL Normal 6.4 - 8.2 [facility] Comment on above: Performed By: #### 2 47686 ####[address] [address] Sodium [Moles/Vol] 141 mmol/L Normal 136 - 145 [facility] Comment on above: Performed By: #### 2 24628 ####[address] [address] Urea nitrogen [Mass/Vol] 23 mg/dL High 7 - 18 [facility] Comment on above: Performed By: #### 2 43970 ####[facility],[address] [place] [address] 55649 HEMOGLOBIN A1C (POM)on 09-06 Glucose [Mass/Vol] 139.9 mg/dL High 0.0 - 0.0 [facility] Comment on above: Result Comment: BLDo HEMOGLOBIN A1C REFERENCE RANGESBLDo Suggested Diagnosis HbA1c(%) HbA1C (mmol/mol Diabetic >/=6.5 >/=48 Prediabetes 5.7 - 6.4 39 - 47 Normal <5.7 <39 Performed By: #### 2 02619 ####[facility],[address] [place] [address] 45507 HbA1c (Bld) [Mass fraction] 6.5 % Normal 0.0 - 6.5 [facility] Comment on above: Performed By: #### 2 02231 ####[facility],[address] [place] [address] 88311 LIPID PROFILEon 09-06-2024 Cholesterol [Mass/Vol] 151 mg/dL Normal 0 - 240 [facility] Comment on above: Performed By: #### 2 62111 ####[facility],[address] [place] [address] 97252 Cholesterol in HDL [Mass/Vol] 54 mg/dL Normal 40 - 60 [facility] Comment on above: Performed By: #### 2 87979 ####[facility],[address] [place] [address] 59102 Cholesterol in LDL [Mass/Vol] 56 mg/dL Normal 0 - 129 [facility] Comment on above: Performed By: #### 2 66006 ####[facility],[address] [place] [address] 72440 Cholesterol.total/Chol esterol in HDL [Mass ratio] 2.8 {ratio} Normal 0.0 - 5.0 [facility] Comment on above: Performed By: #### 2 21798 ####[facility],[address] [place] [address] 15492 Lipid 1996 panel Normal [facility] Comment on above: Result Comment: LIPI D PROFILE Performed By: #### 2 77775 ####[facility],[address] [place] [address] 13732 Triglyceride [Mass/Vol] 205 mg/dL High 0 - 150 [facility] Comment on above: Performed By: #### 2 31325 ####[facility],[address] [place] [address] 59931 TSHon 09-06-2024 TSH Qn 1.12 m[IU]/L Normal 0.35 - 3.74 [facility] Comment on above: Performed By: #### 2 82522 ####[address] [address] VITAMIN D, 25 HYDROXYon 08-27 VitD 59.10 ng/mL Normal 30.00 - 100 [facility] Comment on above: Result Comment: 25-O HD3 indicates both endogenous production and supplementation. 25-OHD2 is anindicator of exogenous sources, such as diet or supplementation. Therapy isbased on measurement of Total 25-OHD, with levels <20 ng/mL indicative ofVitamin D deficiency, while levels between 20 ng/mL and 30 ng/mL suggestinsufficiency. Optimal levels are >=30ng/mL.Vitamin D, 25-OH D3 Not EstablishedVitamin D, 25-OH D2 Not Established Performed By: #### 2 40630 ####[facility],[address] [place] [address] 07795 PTH, INTACT [CCL]on 08-17-20 24 PTH, Intact 49 pg/mL Normal 15-65 [facility] Comment on above: Result Comment: [facility] [place], [place] [address]BmjoonTacho Dugan III, M.D.[id number] Performed By: #### 2 11722 ####[place] [address],[place] [address] BMP with eGFRon 08-16-2024 AGE 84 years Normal [facility] Comment on above: Performed By: #### 2 05973 ####[facility],[address] [place] [address] 67694 Anion gap [Moles/Vol] 8 mmol/L Low 10 - 20 [facility] Comment on above: Performed By: #### 2 99772 ####[facility],[address] [place] [address] 33947 BMP with eGFR Normal [facility] Comment on above: Result Comment: BASI C METABOLIC PANEL Performed By: #### 2 73451 ####[facility],[address] [place] [address] 08783 Calcium [Mass/Vol] 9.4 mg/dL Normal 8.5 - 10.1 [facility] Comment on above: Performed By: #### 2 78881 ####[facility],[address] [place] [address] 78728 Chloride [Moles/Vol] 102 mmol/L Normal 98 - 107 [facility] Comment on above: Performed By: #### 2 27263 ####[facility],[address] [place] [address] 61536 CO2 [Moles/Vol] 36.3 mmol/L High 21.0 - 32.0 [facility] Comment on above: Performed By: #### 2 33598 ####[facility],[address] [place] [address] 99117 Creatinine [Mass/Vol] 1.20 mg/dL High 0.55 - 1.02 [facility] Comment on above: Performed By: #### 2 12890 ####[facility],[address] [place] [address] 52642 eGFR 43 ML/MINUTE Low 60 - 999 [facility] Comment on above: Performed By: #### 2 33416 ####[facility],[address] [place] [address] 36113 eGFR(AA) 52 ML/MINUTE Low 60 - 999 [facility] Comment on above: Result Comment: ACCO RDING TO THE NATIONAL KIDNEY DISEASE EDUCATION PROGRAM(NKDE), A NORMAL eGFRIS A VALUE GREATER THAN OR EQUAL TO 60 ML/MIN/1.73 SQ METERS.CHRONIC KIDNEY DISEASE: <60mL/MIN/1.73 SQ METERSKIDNEY FAILURE: <15mL/MIN/1.73 SQ METERSTHIS TEST SHOULD ONLY BE USED FOR PATIENTS 18 YEARS OF AGE AND OLDER. Performed By: #### 2 19378 ####[facility],[address] [place] [address] 96724 Glucose [Mass/Vol] 96 mg/dL Normal 74 - 106 [facility] Comment on above: Performed By: #### 2 99859 ####[address] [address] Potassium [Moles/Vol] 3.0 mmol/L Low 3.5 - 5.1 [facility] Comment on above: Performed By: #### 2 50637 ####[facility],[address] [place] [address] 49311 Sodium [Moles/Vol] 143 mmol/L Normal 136 - 145 [facility] Comment on above: Performed By: #### 2 09565 ####[facility],[address] [place] [address] 92750 Urea nitrogen [Mass/Vol] 36 mg/dL High 7 - 18 [facility] Comment on above: Performed By: #### 2 25342 ####[address] [address] CBC + DIFFon 08-16-2024 Baso # 0.03 x10EE3/UL Normal 0.00 - 0.10 [facility] Comment on above: Performed By: #### 2 84301 ####[address] [address] Basophils/100 WBC (Bld) 0.6 % Normal 0.0 - 2.0 [facility] Comment on above: Performed By: #### 2 09796 ####[facility],[address] [place] [address] CBC + DIFF Normal [facility] Comment on above: Result Comment: CBC- COMPLETE BLOOD COUNT Performed By: #### 2 37909 ####[facility],[address] [place] [address] EO # 0.11 x10EE3/UL Normal 0.00 - 0.50 [facility] Comment on above: Performed By: #### 2 53782 ####[facility],[address] [place] [address] Eosinophils/100 WBC (Bld) 2.3 % Normal 0.0 - 7.0 [facility] Comment on above: Performed By: #### 2 06015 ####[facility],[address] [place] [address] Erythrocyte distribution width (RBC) [Ratio] 14.5 % Normal 12.0 - 15.6 [facility] Comment on above: Performed By: #### 2 36817 ####[facility],[address] [place] [address] Hematocrit (Bld) [Volume fraction] 43.9 % Normal 34.0 - 46.0 [facility] Comment on above: Performed By: #### 2 18465 ####[facility],[address] [place] [address] Hemoglobin (Bld) [Mass/Vol] 14.2 g/dL Normal 12.0 - 16.0 [facility] Comment on above: Performed By: #### 2 73812 ####[facility],[address] [place] [address] Lymph # 1.52 x10EE3/UL Normal 0.80 - 2.80 [facility] Comment on above: Performed By: #### 2 12793 ####[facility],[address] [place] [address] Lymphocytes/100 WBC (Bld) 32.6 % Normal 20.0 - 45.0 [facility] [facility] Comment on above: Performed By: #### 2 [id number] ####[facility],[address] [place] [address] MANUAL DIFF N/A Normal [facility] Comment on above: Performed By: #### 2 [id number] ####[facility],[address] [place] [address] MCH (RBC) [Entitic mass] 30 pg Normal 27 - 33 [facility] Comment on above: Performed By: #### 2 [id number] ####[facility],[address] [place] [address] MCHC 32 X10 3 Normal 32 - 36 [facility] Comment on above: Performed By: #### 2 [id number] ####[facility],[address] [place] [address] MCV (RBC) [Entitic vol] 93 fL Normal 80 - 99 [facility] Comment on above: Performed By: #### 2 [id number] ####[facility],[address] [place] [address] [place] # 0.44 x10EE3/UL Normal 0.20 - 1.00 [facility] Comment on above: Performed By: #### 2 53456 ####[facility],[address] [place] [address] MONOS % 9.4 % Normal 0.0 - 10.0 [facility] Comment on above: Performed By: #### 2 06721 ####[facility],[address] [place] [address] Morphology Sam (Bld) [Interp] N/A Normal [facility] Comment on above: Performed By: #### 2 [id number] ####[facility],[address],[place] [address] Neut # 2.57 x10EE3/UL Normal 1.50 - 7.10 [facility] Comment on above: Performed By: #### 2 95839 ####[facility],[address] [place] [address] Neutrophils/100 WBC (Bld) 55.1 % Normal 46.0 - 76.0 [facility] Comment on above: Performed By: #### 2 76903 ####[facility],[address] [place] [address] PLATELET 153 x10EE3/UL Normal 150 - 450 [facility] Comment on above: Performed By: #### 2 [id number] ####[facility],[address] [place] [address] Platelet mean volume (Bld) [Entitic vol] 8.8 fL Normal 6.6 - 10.5 [facility] Comment on above: Result Comment: AUTO MATED DIFFERENTIAL Performed By: #### 2 [id number] ####[facility],[address] [place] [address] RBC 4.71 x 10EE6/UL Normal 4.10 - 5.30 [facility] Comment on above: Performed By: #### 2 06001 ####[facility],[address] [place] [address] WBC 4.7 x 10EE3/UL Normal 4.5 - 10.8 [facility] Comment on above: Performed By: #### 2 36541 ####[facility],[address] [place] [address] [facility] Parathyrin.intact [Mass/Vol] 49 pg/mL Normal 15-65 [facility] Comment on above: Order Comment: Speci men Type: BLOOD SPECIMEN Ordering Facility: [facility] Address: [address] [place] [address] Performed By: #### 2 [id number] #### [facility] CLIA [id number] [address] [place] [address] [place] [facility] URINE CREATININE AND PROTEIN RATIOon 08-16-2024 CREATININE UR 32.66 mg/dl Normal [facility] Comment on above: Performed By: #### 2 [id number] ####[facility],[address] [place] [address] PC RATIO 0.04 mg/dL Normal 0.00 - 10.00 [facility] Comment on above: Performed By: #### 2 [id number] ####[facility],[address] [place] [address] URINE TOTAL PROTEIN <6.00 Normal 0.00 - 10.00 [facility] Comment on above: Performed By: #### 2 89615 ####[facility],[address] [place] [address] VITAMIN D, 25 HYDROXYon 07-28 VitD 52.70 ng/mL Normal 30.00 - 100 [facility] Comment on above: Result Comment: 25-O HD3 indicates both endogenous production and supplementation. 25-OHD2 is anindicator of exogenous sources, such as diet or supplementation. Therapy isbased on measurement of Total 25-OHD, with levels <20 ng/mL indicative ofVitamin D deficiency, while levels between 20 ng/mL and 30 ng/mL suggestinsufficiency. Optimal levels are >=30ng/mL.Vitamin D, 25-OH D3 Not EstablishedVitamin D, 25-OH D2 Not Established Performed By: #### 2 [id number] ####[facility],[address] [place] [address] EPILATION OF TRICHIASIS, FOR CEPSon 05-20-2024 [facility] Absolute lymphocyte countOrd ered By: Dr. Berg on 02-21-2023 Lymphocytes Auto (Unsp spec) [#/Vol] 1.68 10*3/uL 0.83-4.51 [facility] Basophil percentageOrdered B y: Dr. Berg on 02-21-2023 Basophils/100 WBC (Bld) 0.7 % 0-1 [facility] Chloride [Moles/Vol] 102 mmol/L 98-107 [facility] Eosinophils/100 WBC (Bld) 0.8 % 0-5 [facility] Glucose [Mass/Vol] 188 mg/dL 74-106 [facility] Comment on above: Fasting Glucose resu lt greater than or equal to 126 mg/dL suggests DIABETES MELLITUS per A.D.A. criteria. Neutrophils (Bld) [#/Vol] 3.9 10*3/uL 2.0-7.7 [facility] Neutrophils/100 WBC (Bld) 64.2 % 47-70 [facility] Potassium [Moles/Vol] 3.2 mmol/L 3.5-5.1 [facility] Sodium [Moles/Vol] 138 mmol/L 136-145 [facility] WBC (Bld) [#/Vol] 6.1 10*3/uL 4.4-11.0 [facility] Blood erythrocytes count (nu mber/volume)Ordered By: Dr. Berg on 02-21-2023 RBC (Bld) [#/Vol] 4.40 10*6/uL 4.2-5.4 [facility] Blood hemoglobin measurement (mass/volume)Ordered By: Dr. Berg on 02-21-2023 Hemoglobin (Bld) [Mass/Vol] 13.7 g/dL 12.0-15.0 [facility] Blood lymphocytes/100 leukoc ytesOrdered By: Dr. Berg on 02-21-2023 Lymphocytes/100 WBC (Bld) 27.5 % 19-41 [facility] Blood monocytes/100 leukocyt esOrdered By: Dr. Berg on 02-21-2023 Monocytes/100 WBC (Bld) 6.5 % 0-10 [facility] Blood platelet mean volumeOr dered By: Dr. Berg on 02-21-2023 Platelet mean volume (Bld) [Entitic vol] 10.5 fL 6.2-12.0 [facility] Determination of erythrocyte mean corpuscular volume (MCV)Ordered By: Dr. Berg on 02-21-2023 MCV (RBC) [Entitic vol] 94.8 fL 81-99 [facility] Hematocrit Auto (Bld) [Volum e fraction]Ordered By: Dr. Berg on 02-21-2023 Hematocrit (Bld) [Volume fraction] 41.7 % 37-47 [facility] Laboratory - Chemistry and C hemistry - challengeOrdered By: Dr. Berg on 02-21-2023 CO2 [Moles/Vol] 30.0 mmol/L 21.0-32.0 [facility] Urea nitrogen/Creatinine [Mass ratio] 25.6 mg/mg 10-20 [facility] Laboratory - Hematology and Cell countsOrdered By: Dr. Berg on 02-21-2023 Erythrocyte distribution width (RBC) [Entitic vol] 50.1 fL 35.1-43.9 [facility] Erythrocyte distribution width (RBC) [Ratio] 14.5 % 11.6-14.6 [facility] Immature granulocytes/100 WBC (Bld) 0.300 % 0.0-0.9 [facility] Comment on above: IG% - Immature Granu locytes (promyelocytes, myelocytes and metamyelocytes) > 1% indicates that a LEFT SHIFT is Present. MCH (RBC) [Entitic mass] 31.1 pg 27.0-32.0 [facility] Nucleated RBC/100 WBC (Bld) [Ratio] 0 % 0-5 [facility] MCHC Auto (RBC) [Mass/Vol]Or dered By: Dr. Berg on 02-21-2023 MCHC (RBC) [Mass/Vol] 32.9 g/dL 32-36 [facility] No Panel InformationOrdered By: Dr. Berg on 02-21-2023 Troponin I High Sensitivity < 3 pg/mL 3.0-54.0 [facility] Comment on above: Please Note: New Masha t Units and Gender Specific Reference Ranges. For more information see Policy Stat Procedure [place] High Sensitivity Troponin (TNIH) and attachments. Estimated Creatinine Clearance Calc 28.94 ml/min [facility] Estimated GFR (MDRD) Amer 57 mL/min >60 [facility] Comment on above: GFR Calc Estimated GFR (MDRD) Non-Af Amer 47 mL/min >60 [facility] Comment on above: Non- GFR Calc Platelets bldOrdered By: Dr. Berg on 02-21-2023 Platelets (Bld) [#/Vol] 178 10*3/uL 150-450 [facility] Serum or plasma calcium greg urement (mass/volume)Ordered By: Dr. Berg on 02-21-2023 Calcium [Mass/Vol] 9.2 mg/dL 8.5-10.1 [facility] Serum or plasma creatinine m easurement (mass/volume)Ordered By: Dr. Berg on 02-21-2023 Creatinine [Mass/Vol] 1.17 mg/dL 0.55-1.02 [facility] Comment on above: The validity of the calculated GFR & GFRAA in patients over 70 years has not been determined. Clinical correlation is essential. Serum or plasma urea nitroge n measurement (mass/volume)Ordered By: Dr. Berg on 02-21-2023 Urea nitrogen [Mass/Vol] 30 mg/dL 7-18 [facility] Thin prep Papanicolaou smear with manual screeningOrdered By: Dr. Berg on 02-21-2023 Thin prep Papanicolaou smear with manual screening 6 5-15 [facility] Absolute lymphocyte countOrd ered By: Dr. Martinez on 01-07-2023 Lymphocytes Auto (Unsp spec) [#/Vol] 1.61 10*3/uL 0.83-4.51 [facility] Basophil percentageOrdered B y: Dr. Martinez on 01-07-2023 Basophils/100 WBC (Bld) 0.9 % 0-1 [facility] Bilirubin [Mass/Vol] 1.00 mg/dL 0.20-1.00 [facility] Comment on above: For patients on eltr ombopag therapy, use of Dimension [place] TBIL is not recommended. Chloride [Moles/Vol] 101 mmol/L 98-107 [facility] Eosinophils/100 WBC (Bld) 0.4 % 0-5 [facility] Glucose [Mass/Vol] 141 mg/dL 74-106 [facility] Comment on above: Fasting Glucose resu lt greater than or equal to 126 mg/dL suggests DIABETES MELLITUS per A.D.A. criteria. Neutrophils (Bld) [#/Vol] 4.6 10*3/uL 2.0-7.7 [facility] Neutrophils/100 WBC (Bld) 67.7 % 47-70 [facility] Potassium [Moles/Vol] 3.4 mmol/L 3.5-5.1 [facility] Protein [Mass/Vol] 7.7 g/dL 6.4-8.2 [facility] Sodium [Moles/Vol] 140 mmol/L 136-145 [facility] WBC (Bld) [#/Vol] 6.7 10*3/uL 4.4-11.0 [facility] Basophil percentage 0-5 SEEN /hpf 0-5 [facility] Bilirubin Test strip Ql (U)O rdered By: Dr. Martinez on 01-07-2023 Bilirubin Ql (U) Negative Negative [facility] Blood erythrocytes count (nu mber/volume)Ordered By: Dr. Martinez on 01-07-2023 RBC (Bld) [#/Vol] 4.85 10*6/uL 4.2-5.4 [facility] Blood hemoglobin measurement (mass/volume)Ordered By: Dr. Martinez on 01-07-2023 Hemoglobin (Bld) [Mass/Vol] 15.0 g/dL 12.0-15.0 [facility] Blood lymphocytes/100 leukoc ytesOrdered By: Dr. Martinez on 01-07-2023 Lymphocytes/100 WBC (Bld) 23.9 % 19-41 [facility] Blood monocytes/100 leukocyt esOrdered By: Dr. Martinez on 01-07-2023 Monocytes/100 WBC (Bld) 6.8 % 0-10 [facility] Blood platelet mean volumeOr dered By: Dr. Martinez on 01-07-2023 Platelet mean volume (Bld) [Entitic vol] 11.0 fL 6.2-12.0 [facility] Determination of erythrocyte mean corpuscular volume (MCV)Ordered By: Dr. Martinez on 01-07-2023 MCV (RBC) [Entitic vol] 95.5 fL 81-99 [facility] Hematocrit Auto (Bld) [Volum e fraction]Ordered By: Dr. Martinez on 01-07-2023 Hematocrit (Bld) [Volume fraction] 46.3 % 37-47 [facility] Ketones Test strip Ql (U)Ord ered By: Dr. Martinez on 01-07-2023 Ketones Ql (U) Negative Negative [facility] Laboratory - Chemistry and C hemistry - challengeOrdered By: Dr. Martinez on 01-07-2023 ALP [Catalytic activity/Vol] 100 U/L 45-117 [facility] ALT [Catalytic activity/Vol] 29 U/L 13-56 [facility] CO2 [Moles/Vol] 29.0 mmol/L 21.0-32.0 [facility] Globulin (S) [Mass/Vol] 3.7 g/dL 2.2-4.2 [facility] Urea nitrogen/Creatinine [Mass ratio] 23.2 mg/mg 10-20 [facility] Laboratory - Hematology and Cell countsOrdered By: Dr. Martinez on 01-07-2023 Erythrocyte distribution width (RBC) [Entitic vol] 50.3 fL 35.1-43.9 [facility] Erythrocyte distribution width (RBC) [Ratio] 14.2 % 11.6-14.6 [facility] Immature granulocytes/100 WBC (Bld) 0.300 % 0.0-0.9 [facility] Comment on above: IG% - Immature Granu locytes (promyelocytes, myelocytes and metamyelocytes) > 1% indicates that a LEFT SHIFT is Present. MCH (RBC) [Entitic mass] 30.9 pg 27.0-32.0 [facility] Nucleated RBC/100 WBC (Bld) [Ratio] 0 % 0-5 [facility] MCHC Auto (RBC) [Mass/Vol]Or dered By: Dr. Martinez on 01-07-2023 MCHC (RBC) [Mass/Vol] 32.4 g/dL 32-36 [facility] Mucus LM Ql (Urine sed)Order ed By: Dr. Martinez on 01-07-2023 Mucus Ql (Urine sed) 0 SEEN /hpf [facility] Nitrite Test strip Ql (U)Ord ered By: Dr. Martinez on 01-07-2023 Nitrite Ql (U) Negative Negative [facility] No Panel InformationOrdered By: Dr. Martinez on 01-07-2023 Troponin I High Sensitivity 6 pg/mL 3.0-54.0 [facility] Comment on above: Please Note: New Masha t Units and Gender Specific Reference Ranges. For more information see Policy Stat Procedure [place] High Sensitivity Troponin (TNIH) and attachments. Estimated Creatinine Clearance Calc 30.23 ml/min [facility] Estimated GFR (MDRD) Amer 60 mL/min >60 [facility] Comment on above: GFR Calc Estimated GFR (MDRD) Non-Af Amer 50 mL/min >60 [facility] Comment on above: Non- GFR Calc Troponin I High Sensitivity < 3 pg/mL 3.0-54.0 [facility] Comment on above: Please Note: New Masha t Units and Gender Specific Reference Ranges. For more information see Policy Stat Procedure [place] High Sensitivity Troponin (TNIH) and attachments. Platelets bldOrdered By: Dr. Martinez on 01-07-2023 Platelets (Bld) [#/Vol] 161 10*3/uL 150-450 [facility] Protein Test strip Ql (U)Ord ered By: Dr. Martinez on 01-07-2023 Protein Ql (U) Negative Negative [facility] Serum or plasma albumin greg urement (mass/volume)Ordered By: Dr. Martinez on 01-07-2023 Albumin [Mass/Vol] 4.0 g/dL 3.2-5.0 [facility] Serum or plasma albumin/glob ulin mass ratioOrdered By: Dr. Martinez on 01-07-2023 Albumin/Globulin [Mass ratio] 1.1 {ratio} 0.9-2.4 [facility] Serum or plasma calcium greg urement (mass/volume)Ordered By: Dr. Martinez on 01-07-2023 Calcium [Mass/Vol] 9.5 mg/dL 8.5-10.1 [facility] Serum or plasma creatinine m easurement (mass/volume)Ordered By: Dr. Martinez on 01-07-2023 Creatinine [Mass/Vol] 1.12 mg/dL 0.55-1.02 [facility] Comment on above: The validity of the calculated GFR & GFRAA in patients over 70 years has not been determined. Clinical correlation is essential. Serum or plasma urea nitroge n measurement (mass/volume)Ordered By: Dr. Martinez on 01-07-2023 Urea nitrogen [Mass/Vol] 26 mg/dL 7-18 [facility] Squamous epithelial cells de tection in urine sediment by light microscopyOrdered By: Dr. Martinez on 01-07-2023 Epithelial cells.squamous LM Ql (Urine sed) 0-5 SEEN /hpf 5-10 [facility] Thin prep Papanicolaou smear with manual screeningOrdered By: Dr. Martinez on 01-07-2023 Thin prep Papanicolaou smear with manual screening 20 U/L 15-37 [facility] Thin prep Papanicolaou smear with manual screening 10 5-15 [facility] Urine blood detectionOrdered By: Dr. Martinez on 01-07-2023 RBC Ql (U) Negative Negative [facility] RBC Ql (U) 0 SEEN /hpf 0-5 [facility] Urine clarityOrdered By: Dr. Martinez on 01-07-2023 Clarity (U) Sl. Cloudy Clear [facility] Urine color determinationOrd ered By: Dr. Martinez on 01-07-2023 Color (U) Yellow Yellow [facility] Urine glucose detectionOrder ed By: Dr. Martinez on 01-07-2023 Glucose Ql (U) Normal mg/dl Normal [facility] Urine leukocyte esterase det ection by dipstickOrdered By: Dr. Martinez on 01-07-2023 Leukocyte esterase Test strip Ql (U) 25 /ul Negative [facility] Urine pHOrdered By: Dr. David munson on 01-07-2023 pH (U) 6.0 [pH] 5.0 - 8.0 [facility] Urine sediment bacteria coun t by microscopy (number/high power field)Ordered By: Dr. Martinez on 01-07-2023 Bacteria LM.HPF (Urine sed) [#/Area] 0 /[HPF] None Seen [facility] Urine specific gravity measu rementOrdered By: Dr. Martinez on 01-07-2023 Specific gravity (U) [Rel density] 1.010 1.002-1.030 [facility] Urobilinogen Auto test strip Ql (U)Ordered By: Dr. Martinez on 01-07-2023 Urobilinogen Ql (U) Normal mg/dl Normal [facility] Absolute lymphocyte countOrd ered By: Dr. Martinez on 11-16-2022 Lymphocytes Auto (Unsp spec) [#/Vol] 1.20 10*3/uL 0.83-4.51 [facility] Basophil percentageOrdered B y: Dr. Martinez on 11-16-2022 Basophils/100 WBC (Bld) 0.8 % 0-1 [facility] Chloride [Moles/Vol] 108 mmol/L 98-107 [facility] Eosinophils/100 WBC (Bld) 0.5 % 0-5 [facility] Glucose [Mass/Vol] 135 mg/dL 74-106 [facility] Comment on above: Fasting Glucose resu lt greater than or equal to 126 mg/dL suggests DIABETES MELLITUS per A.D.A. criteria. Neutrophils (Bld) [#/Vol] 4.5 10*3/uL 2.0-7.7 [facility] Neutrophils/100 WBC (Bld) 73.0 % 47-70 [facility] Potassium [Moles/Vol] 3.5 mmol/L 3.5-5.1 [facility] Sodium [Moles/Vol] 142 mmol/L 136-145 [facility] WBC (Bld) [#/Vol] 6.2 10*3/uL 4.4-11.0 [facility] Blood erythrocytes count (nu mber/volume)Ordered By: Dr. Martinez on 11-16-2022 RBC (Bld) [#/Vol] 4.52 10*6/uL 4.2-5.4 [facility] Blood hemoglobin measurement (mass/volume)Ordered By: Dr. Martinez on 11-16-2022 Hemoglobin (Bld) [Mass/Vol] 13.8 g/dL 12.0-15.0 [facility] Blood lymphocytes/100 leukoc ytesOrdered By: Dr. Martinez on 11-16-2022 Lymphocytes/100 WBC (Bld) 19.4 % 19-41 [facility] Blood monocytes/100 leukocyt esOrdered By: Dr. Martinez on 11-16-2022 Monocytes/100 WBC (Bld) 6.1 % 0-10 [facility] Blood platelet mean volumeOr dered By: Dr. Martinez on 11-16-2022 Platelet mean volume (Bld) [Entitic vol] 11.3 fL 6.2-12.0 [facility] Determination of erythrocyte mean corpuscular volume (MCV)Ordered By: Dr. Martinez on 11-16-2022 MCV (RBC) [Entitic vol] 97.8 fL 81-99 [facility] Hematocrit Auto (Bld) [Volum e fraction]Ordered By: Dr. Martinez on 11-16-2022 Hematocrit (Bld) [Volume fraction] 44.2 % 37-47 [facility] Laboratory - Chemistry and C hemistry - challengeOrdered By: Dr. Martinez on 11-16-2022 CO2 [Moles/Vol] 30.0 mmol/L 21.0-32.0 [facility] Natriuretic peptide B (Bld) [Mass/Vol] 188.3 pg/mL 0-100 [facility] Urea nitrogen/Creatinine [Mass ratio] 21.3 mg/mg 10-20 [facility] Laboratory - Hematology and Cell countsOrdered By: Dr. Martinez on 11-16-2022 Erythrocyte distribution width (RBC) [Entitic vol] 51.8 fL 35.1-43.9 [facility] Erythrocyte distribution width (RBC) [Ratio] 14.4 % 11.6-14.6 [facility] Immature granulocytes/100 WBC (Bld) 0.200 % 0.0-0.9 [facility] Comment on above: IG% - Immature Granu locytes (promyelocytes, myelocytes and metamyelocytes) > 1% indicates that a LEFT SHIFT is Present. MCH (RBC) [Entitic mass] 30.5 pg 27.0-32.0 [facility] Nucleated RBC/100 WBC (Bld) [Ratio] 0 % 0-5 [facility] MCHC Auto (RBC) [Mass/Vol]Or dered By: Dr. Martinez on 11-16-2022 MCHC (RBC) [Mass/Vol] 31.2 g/dL 32-36 [facility] No Panel InformationOrdered By: Dr. Martinez on 11-16-2022 Estimated Creatinine Clearance Calc 38.04 ml/min [facility] Estimated GFR (MDRD) Amer 78 mL/min >60 [facility] Comment on above: GFR Calc Estimated GFR (MDRD) Non-Af Amer 64 mL/min >60 [facility] Comment on above: Non- GFR Calc Troponin I High Sensitivity < 3 pg/mL 3.0-54.0 [facility] Comment on above: Please Note: New Masha t Units and Gender Specific Reference Ranges. For more information see Policy Stat Procedure [place] High Sensitivity Troponin (TNIH) and attachments. Platelets bldOrdered By: Dr. Martinez on 11-16-2022 Platelets (Bld) [#/Vol] 171 10*3/uL 150-450 [facility] Serum or plasma calcium greg urement (mass/volume)Ordered By: Dr. Martinez on 11-16-2022 Calcium [Mass/Vol] 9.2 mg/dL 8.5-10.1 [facility] Serum or plasma creatinine m easurement (mass/volume)Ordered By: Dr. Martinez on 11-16-2022 Creatinine [Mass/Vol] 0.89 mg/dL 0.55-1.02 [facility] Comment on above: The validity of the calculated GFR & GFRAA in patients over 70 years has not been determined. Clinical correlation is essential. Serum or plasma urea nitroge n measurement (mass/volume)Ordered By: Dr. Martinez on 11-16-2022 Urea nitrogen [Mass/Vol] 19 mg/dL 7-18 [facility] Thin prep Papanicolaou smear with manual screeningOrdered By: Dr. Martinez on 11-16-2022 Thin prep Papanicolaou smear with manual screening 4 5-15 [facility] XR CHEST 2V FRONTAL/LATon [facility] XR Chest PA and Lateralon IMPRESSION: No acute radiographic abnormality. Age-indeterminate compression deformity of a mid thoracic spine vertebral body. Probation Supervisor: PSCB Transcribe Date/Time: Aug 31 2022 11:09A Dictated by : STEPHANI SARABIA MD This examination was interpreted and the report reviewed and electronically signed by: STEPHANI SARABIA MD on Aug 31 2022 11:11AM [facility] DIVISION OF RADIOLOGY * * *Final Report* * * DATE OF EXAM: Aug 31 2022 11:07AM WOX [id number] - XR CHEST 2V FRONTAL/LAT / PROCEDURE REASON: Rhonchi * * * * Physician Interpretation * * * * EXAMINATION: CHEST RADIOGRAPH (2 VIEW FRONTAL & LATERAL) CLINICAL HISTORY: Rhonchi MQ: [id number] EXAM DATE/TIME: 08/31/2022 11:07 AM COMPARISON: Chest x-ray 12/08/2015 RESULT: Lines, tubes, and devices: None. Lungs and pleura: No consolidation. No lung mass. No pleural effusion. No pneumothorax. Cardiomediastinal silhouette: Normal cardiomediastinal silhouette. Bones and soft tissues: Degenerative disease of the thoracic spine. Age-indeterminate compression deformity of a mid thoracic spine vertebral body. DIVISION OF RADIOLOGY Provider, Gerardo Gold - 08/31/2022 * * *Final Report* * * DATE OF EXAM: Aug 31 2022 11:07AM WOX 5291 - XR CHEST 2V FRONTAL/LAT / PROCEDURE REASON: Rhonchi * * * * Physician Interpretation * * * * EXAMINATION: CHEST RADIOGRAPH (2 VIEW FRONTAL & LATERAL) CLINICAL HISTORY: Rhonchi MQ: [id number] EXAM DATE/TIME: 08/31/2022 11:07 AM COMPARISON: Chest x-ray 12/08/2015 RESULT: Lines, tubes, and devices: None. Lungs and pleura: No consolidation. No lung mass. No pleural effusion. No pneumothorax. Cardiomediastinal silhouette: Normal cardiomediastinal silhouette. Bones and soft tissues: Degenerative disease of the thoracic spine. Age-indeterminate compression deformity of a mid thoracic spine vertebral body. IMPRESSION IMPRESSION: No acute radiographic abnormality. Age-indeterminate compression deformity of a mid thoracic spine vertebral body. Probation Supervisor: PSCB Transcribe Date/Time: Aug 31 2022 11:09A Dictated by : STEPHANI SARABIA MD This examination was interpreted and the report reviewed and electronically signed by: STEPHANI SARABIA MD on Aug 31 2022 11:11AM EST [facility] Radiology Study observation (narrative) [facility] XR Chest PA and LateralOrder ed By: Ccf Provider on 08-31-2022 [facility] Hemoglobin A1con 07-29-2021 Glucose [Mass/Vol] 137 mg/dL Normal [facility] Reference Lab Comment on above: Performed By: #### H BA1C #### [facility] Routine Lab [address] [place], [place] [address] HbA1c (Bld) [Mass fraction] 6.4 % High 4.3-5.6 [facility] Reference Lab Comment on above: Performed By: #### H BA1C #### [facility] Routine Lab [address] [place], [place] [address] CORONAVIRUS 2019, SCREEN ASY MPTOMATICon 04-05-2021 SARS-CoV-2 (COVID-19) RNA LISSETTE+probe Ql (Unsp spec) Not detected Normal Not Detected [facility] Comment on above: Result Comment: . This assay is designed to detect the N, ORF1ab and/or S genes of SARS-CoV-2 via nucleic acid amplification. A Negative (NOT DETECTED) result does not preclude 2019-nCoV infection since the adequacy of sample collection and/or low viral burden may result in presence of viral nucleic acids below the clinical sensitivity of this test method. Negative (NOT DETECTED) result should not be used as the sole basis for treatment or other patient management decisions. Rather negative results should be combined with clinical observations, patient history, and epidemiological information to make patient management decisions. Fact sheet for providers: https://www.fda.gov/media/844658/download Fact sheet for patients: https://www.fda.gov/media/232527/download This test has received FDA Emergency Use Authorization (EUA) and has been verified by [facility] ([facility]). This test is only authorized for the duration of time that circumstances exist to justify the authorization of the emergency use of in vitro diagnostic tests for the detection of SARS-CoV-2 virus and/or diagnosis of COVID-19 infection under section 564(b)(1) of the Act, 21 U.S.C. 360bbb-3(b)(1), unless the authorization is terminated or revoked sooner. [facility] is certified under CLIA-88 as qualified to perform high complexity testing. Testing is performed in the [facility] laboratories located at [address] [place] [address]. Performed By: #### C OVSC #### [address] [place] [address] Covid 19 Resultson SARS-CoV-2 (COVID-19) RNA LISSETTE+probe Ql (Unsp spec) NEGATIVE COVID-19 Test Coronaviruses are common world-wide and are the cause of many common colds. SARS-COV2 is a new coronavirus that began circulating worldwide in 2019 so we are calling it COVID-19. It has been estimated that four out of five patients with COVID-19 will recover at home without the need for medical attention. Symptoms of COVID-19 may include cough, fever, shortness of breath, loss of taste or smell and other flu-like symptoms including chills, sore muscles, sore throat, and headache. Severe illness is more common in older people and people with other health problems such as high blood pressure, obesity, and immune system problems. If the test is positive, you have COVID-19. You will be contacted by the ordering physicians office and instructed to remain on home isolation, in accordance with CDC guidelines. You may also be contacted by the [facility] to see if any of your close contacts may have been exposed to the virus and need to quarantine. If the test is negative, you likely do not have COVID-19 at this time, but you still may have a different illness that can spread to other people (like Influenza, or the Flu) and could still be at risk for getting COVID-19. We recommend that you stay away from other people to limit the spread of illness until your symptoms are improving and you are fever-free for 24 hours without the use of fever lowering medications such as acetaminophen or ibuprofen. No test is 100% accurate so if you are still concerned you may have COVID-19, talk to your doctor about the need to continue to stay away from others. Medicines Unless your provider told you not to use the following: Acetaminophen (Tylenol and others) is generally safe. Anti-inflammatory medications, such as Ibuprofen (Advil or Motrin) or Naproxen (Aleve) can also be used. Lqdv-zuy-fbtcnul cough and cold medicines can be used according to the instructions on the package. Some rbkj-wfo-urylqty medicines also contain acetaminophen. Make sure you are not taking more than your recommended dose. For those not hospitalized, there is no specific treatment available for this illness. Antibiotics do not treat Coronaviruses. Follow-Up Follow up with your doctor by scheduling a virtual visit or consider follow-up at one of our urgent care fever clinics. If you are having difficulty breathing, or are very weak and having difficulty standing, this is a medical emergency. Call 911 or have someone take you to the nearest emergency room immediately. If possible, wear a facemask. Additional guidance from the CDC for patients who tested POSITIVE for COVID-19 How to isolate: Isolate yourself in a specific room at home and limit your contact with others. Use a separate bathroom from other members of the household, when possible. Leave home only to get essential medical care. Do not go to work, school or public areas. Avoid using public transportation, ride-sharing, or taxis. Restrict contact with pets and other animals. If you must care for your pet or be around animals while you are sick, wash your hands before and after your interaction and wear a facemask. Make sure that shared spaces in the home have good airflow, such as by an air conditioner or an opened window, weather permitting. Personal Hygiene Procedures: Wear a face mask when in the same room as other people or pets. If a face mask interferes with your breathing, others should wear a mask when sharing space with you. Frequent hand-washing: wash your hands with soap and water for at least 20 seconds. If soap and water are not available, use alcohol-based hand traffic division commanding officer. Avoid touching your eyes, nose, and mouth with unwashed hands. Household Hygiene Procedures: Avoid sharing personal household items such as dishes, glassware, cups, eating utensils, towels or bedding with other people or pets in your home. After use, these items should be washed with soap and hot water. Disinfect all high-touch surfaces every day with antibacterial cleaning solutions such as Lysol wipes, bleach, cleansers, etc. High-touch surfaces include tabletops, doorknobs, bathroom fixtures, toilets, phones, keyboards, tablets and bedside tables. Immediately clean any surfaces that may have blood, poop or body fluids on them, using antibacterial cleaning solutions such as Lysol wipes, bleach, cleansers, etc. If clothing or bedding come into contact with blood, poop or body fluids, they should be washed immediately. Follow the directions on the laundry detergent and clothing labels but hot water is recommended when possible. Stopping home isolation precautions: If possible, consult your doctor before stopping home isolation precautions. According to the CDC, you can discontinue home isolation precautions when you have met both of these criteria: Your fever and respiratory symptoms have been gone for 24 bruce (more content not included)... Normal [facility] Order Reconciliationon 04-05 Order Reconciliation Page 1 Discharge Reconciliation Document Reconciliation Type: Discharge requested on behalf of Miguel Brito (Physician) done by Miguel Brito) Discharge - Reconciliation: 05-Apr-2021 12:30 by: Miguel Brito) Home Medications EnteredHOME MEDICATIONS AT DISCHARGE DateReconciliation Comment/ Additional Information Plavix 75 mg oral tablet 1 tab(s) orally once a day 03-Apr-2021 09:48 Plavix 75 mg oral tablet 1 tab(s) orally once a day 03-Apr-2021 09:48 Plavix 75 mg oral tablet is continued as Plavix 75 mg oral tablet Current OrdersDateHOME MEDICATIONS AT DISCHARGE DateReconciliation Comment/ Additional Information Acetaminophen Tablet (TYLENOL)DOSE = 975 mg Oral Once 22-Mar-2021 07:27 Acetaminophen is not required Artificial Tears (Preservative Free) SolutionDOSE = 1 drop(s) Right Eye Every 10 MinutesStop After 4 Doses 22-Mar-2021 07:27 Artificial Tears (Preservative Free) is not required Dexamethasone Injectable (DECADRON)DOSE = 4 mg IntraVenous Push Once 04-Apr-2021 11:23 Dexamethasone Injectable is not required Ketorolac 0.5% Ophthalmic. Solution (ACULAR)DOSE = 1 drop(s) Right Eye Every 10 MinutesStop After 4 Doses 22-Mar-2021 07:27 Ketorolac 0.5% Ophthalmic. is not required Lactated Ringers Infusion IV Bag Volume = 1,000 mL Run at: 100 mL/hr IntraVenous 04-Apr-2021 11:23 Lactated Ringers Infusion is not required Lidocaine 1% - Phenylephrine 1.5% Intravitreal SolutionDOSE = 2 mL Intravitreal OnceClinician Notes: To be administered by surgeon 22-Mar-2021 07:27 Lidocaine 1% - Phenylephrine 1.5% Intravitreal is not required Midazolam Injectable (VERSED)DOSE = 1 mg IntraVenous Push Once 04-Apr-2021 11:23 Midazolam Injectable is not required Moxifloxacin 0.5% Ophthalmic. Solution (VIGAMOX)DOSE = 1 mL Right Eye OnceClinician Notes: To be administered by surgeon 22-Mar-2021 07:27 Moxifloxacin 0.5% Ophthalmic. is not required Ondansetron Injectable (ZOFRAN)DOSE = 4 mg IntraVenous Push Once 04-Apr-2021 11:23 Ondansetron Injectable is not required Phenylephrine 10% - Tropicamide 1% Ophthalmic Solution (MYDRIATIC COCKTAIL)DOSE = 1 drop(s) Right Eye Every 10 MinutesStop After 4 Doses 22-Mar-2021 07:27 Phenylephrine 10% - Tropicamide 1% Ophthalmic is not required Povidone Iodine 5% Ophthalmic. Solution (BETADINE)DOSE = 2 drop(s) Right Eye OnceClinician Notes: Prep around operative eye and drop into eye 22-Mar-2021 07:27 Povidone Iodine 5% Ophthalmic. is not required Tetracaine 0.5% Ophthalmic. SolutionDOSE = 1 drop(s) Right Eye Once 22-Mar-2021 07:27 Tetracaine 0.5% Ophthalmic. 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 Do not remove any midline, if present, without an order from the provider. Discharge Instructions - PHR After your discharge from the hospital, two Summary of Care Documents will be available online in your Personal Health Record (PHR). 1.Consolidated-Clinical Document Architecture (C-CDA) Patient Discharge Summary This document is a summary of your hospital stay to be kept for your reference.2.C-CDA Visit Summary This document is a summary of your hospital stay to be shared with your follow-up providers (doctor, automotive fuel systems converter, physical therapist, etc.). Post Procedure Discharge Criteria Criteria: Easily arousable / responding appropriately; Significant complications are absent; SpO2 = or > 92%, or if SpO2 < 92%, maintains within 2% of baseline; Vital signs +/- 20% of preprocedure status; Ambulates without dizziness / age appropriate activity and ambulatory status returns to pre-procedure baseline. 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 Do not remove any midline, if present, without an order from the provider. Discharge Instructions - PHR After your discharge from the hospital, two Summary of Care Documents will be available online in your Personal Health Record (PHR). 1.Consolidated-Clinical Document Architecture (C-CDA) Patient Discharge Summary This document is a summary of your hospital stay to be kept for your reference.2.C-CDA Visit Summary This document is a summary of your hospital stay to be shared with your follow-up prov (more content not included)... [facility] Preop Checkliston 04-05-2021 Preop Checklist Preop Checklist: Preop Checklist: Arrival [id number] Arrival Time12:10 Procedure Typeright cateract Temperature C35.8 degrees C Temperature F96.4 degrees F Heart Rate70 beats per minute Respiratory Rate20 breath per minute Blood Pressure Srgqawxw469 mm/Hg Blood Pressure Zhgmbcyqa62 mm/Hg NPO [id number] 21:00 ID Band Onyes Allergy Bandyes Consent Signedyes H&P Completeyes Anesthesia Assessment Completedyes EKG Performednot ordered Chest X-Ray Performednot ordered HCG Urine TestN/A Chlorhexadine Bath Givennot applicable Nasal Antiseptic Appliednot applicable Hair Washednot applicable Soap and water bath with hair shampoo the night before surgerynot applicable Hat placed on prior to transportnot applicable SCD's Appliednot applicable SUNG Hose Appliednot ordered Denturesupper left in place Prostheticsnot applicable Hearing Aidsnot applicable Valuables Securednot applicable Glasses / Contactsglasses in room Bowel Prepno Cardiovascular Assessment: Apicalregular Extremitieswarm Respiratory Assessment: Respirationsregular unlabored Air Exchangegood, equal Breath Soundsclear Neurological Assessment: Level of Consciousnessalert, oriented Mobilitymoves all extremities Able to Express Selfyes Age Appropriateyes Emotional Statuscalm Skin Assessment: Skin Site(s) with Current Compromisenone Preop Education: Surgical Site Infection Preventionyes Pain Scales and Managementyes Language / Communication: Language / CommunicationEnglish Electronic Signatures: Keisha Pizano (RN) (Signed 05-Apr-2021 12:15) Authored: Preop Checklist Last Updated: 05-Apr-2021 12:15 by Keisha Pizano (JULIO) [facility] CORONAVIRUS 2019, SCREEN ASY MPTOMATICon 04-04-2021 Lab Specimen Source Nasal, Nasopharyngeal Normal [facility] Comment on above: Performed By: #### C OVSC #### [facility] [address] 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 (procedure may be cancelled if no show horse driver), center location, insurance information Prep Instructions Reviewedyes Instructed to Have No Fluids Aftermidnight Stated Reason for Admissioneye surgery Primary Contact Name and Numberjane Patient Belongingsremains with patient Patient Belongings Remaining with Patientclothing; vision aids; dental appliance Medications Brought to Hospitalno General Health: Weight in kg62 kilogram(s) Weight in xqm510.6 pound(s) Weight Methodstated Height in feet5 feet Height in inches1 inch(es) Height in cm154.9 centimeter(s) Height Methodstated BMI (kg/m2)25.839 square meter Patient or Family Member Reaction to Anesthesiano previous reaction; no previous family member reaction Relationship/Environ: Resource/Environmental Concernsnone Substance: Current or Former Substance Use never: Cigarette/Tobacco, e-Cigarette/Vaping, Alcohol, Street Drugs Risk Screens: COVID-19 Screening Completedno exposure or symptoms Travel or ExposureNO travel to International locations in the past 30 days Advance Directive/DNRyes Advance Directive typeLiving Will Living Will AvailabilityLiving Will not available now During the past month, have you often been bothered by feeling down, depressed or hopelessno During the past month, have you often had little interest or pleasure in doing thingsno Have you had any thoughts of harming anyone elseno Risk Screen Not Applicable/Able to Answerable to be screened In the Past Month: Have you wished you were or could go to sleep and not wake upno In the Past Month: Have you had any actual thoughts of killing yourselfno Lifetime: Have you ever done, started to do, or prepared to do anything to end your lifeno Are you or have you been threatened or abused physically,emotionally or sexually abused by anyoneno Do you feel UNSAFE going back to the place you are livingno Patient is Able to be Assessed for Learningyes Factors Influencing Readiness to Learnacuteness of illness Factors that Impact Ability to Learnnone Devices/Methods Used to Communicatenone Learning Preferencesverbal instruction; written material Cultural Considerationsnone Developmental Considerationsnone Sikh Considerationsnone Other learner availableno [place] RiskPatient location auto qualifies him/her for HIGH RISK. Are there any cultural, spiritual, jewish practices/values/needs that are important for us to knowno Pain Scalenumerical 0-10 Pain Scale Educationteaching provided Current Pain Level0 = None Acceptable Pain Level5 = Moderate Chronic Painno Information Review: Allergies, Home Meds and Significant Events have been Reviewed and Verified with Patient/Familyyes Allergy, Intolerance, Adverse Event: Intolerances: hydrocodone: Drug, Nausea/Vomiting, Active Problem List: Medical History: Diabetes mellitus: Catalog Name: Type 2 diabetes mellitus without complications CVA (cerebral vascular accident): Catalog Name: Cerebral infarction, unspecified, Description: no deficits [place] (myocardial infarction): Catalog Name: Acute myocardial infarction, unspecified, Description: 2012 CAD (coronary artery disease): Catalog Name: Atherosclerotic heart disease of [place] coronary artery without angina pectoris Hypercholesterolemia: Catalog Name: Pure hypercholesterolemia, unspecified Hypertension: Catalog Name: Essential (primary) hypertension GERD (gastroesophageal reflux disease): Catalog Name: Gastro-esophageal reflux disease without esophagitis Surg History: History of laparoscopic cholecystectomy: Catalog Name: Acquired absence of other specified parts of digestive tract History of hysterectomy: Catalog Name: Acquired absence of both cervix and uterus History of tubal ligation: Catalog Name: Tubal ligation status History of bladder suspension procedure: Catalog Name: Other specified postprocedural states History of appendectomy: Catalog Name: Acquired absence of other specified parts of digestive tract History of coronary artery stent placement: Catalog Name: Presence of coronary angioplasty implant and graft Electronic Signatures: Keisha Pizano) (Signed 05-Apr-2021 12:10) Authored: Initial Info, Relationship/Environ, Risk Screens, Additional Information Crystal Cedillo) (Signed 03-Apr-2021 09:53) Authored: Initial Info, General Health, Substance, Risk Screens, Additional Information Last Updated: 05-Apr-2021 12:10 by Keisha Pizano) [facility] Hemoglobin A1con 01-31-2021 Glucose [Mass/Vol] 137 mg/dL Normal [facility] Reference Lab Comment on above: Performed By: #### H BA1C #### [facility] Routine Lab [address] [place], [place] [id number] HbA1c (Bld) [Mass fraction] 6.4 % High 4.3-5.6 [facility] Reference Lab Comment on above: Performed By: #### H BA1C #### [facility] Routine Lab [address] [place], [place] [id number] Hemoglobin A1con 09-19-2020 Glucose [Mass/Vol] 134 mg/dL Normal [facility] Reference Lab Comment on above: Performed By: #### H BA1C #### [facility] Routine Lab [address] [place], [place] [id number] HbA1c (Bld) [Mass fraction] 6.3 % High 4.3-5.6 [facility] Reference Lab Comment on above: Performed By: #### H BA1C #### [facility] Routine Lab [address] [place], [place] [id number] Final Surgical Pathology Rep [facility] 06-19-2018 Final Surgical Pathology Report . Pathology ReportsAccession: Collected Date/Time: Received Date/Time: Pathologist:[id number] 06/18/2018 09:26 EDT 06/18/2018 09:26 EDT MD GORAN REICH Final Surgical Pathology ReportDIAGNOSIS:A) STOMACH, BIOPSY: - MILD CHRONIC GASTRITIS. - NEGATIVE FOR H. PYLORI.B) ESOPHAGUS, BIOPSY: - GASTRIC MUCOSA WITH MILD CHRONIC INFLAMMATION AND NONSPECIFIC REACTIVE CHANGES. - NEGATIVE FOR FERNANDEZ'S.CLINICAL INFORMATION:PROCEDURE: EGDPRE-OP DIAGNOSIS: EPIGASTRIC PAINPOST-OP DIAGNOSIS: SAMESPECIMEN:A STOM, BX - R/O H. PYLORIB ESOPH, BX - ESOPHAGITISGROSS DESCRIPTION:A. Received in formalin labeled gastric biopsy are 2 fuchs glistening soft tissues, 0.4 and 0.5 cm. TS -1B. Received in formalin labeled esophagus is a 0.6 cm fuchs glistening soft tissue. TS -1Dictated by Jeannette SANCHEZ ([facility])MICROSCOPIC DESCRIPTION:Slides reviewed.Electronically Signed byPathology Report verified by [facility] HospitalElectronically signed by GORAN Cornelius out Date: 06/19/2018 13:58Performing Lab: [facility], [address] [place] [id number] [place] Normal [facility] ([place]) Comment on above: Performed By: #### C BC, ADIFF, ANEU, GFR, CMP ####[address] [address] .Auto Diffon 06-18-2018 Ammonia mass conc (P) 0.40 10 3/mcL Normal 0.09-1.40 [facility] ([place]) Comment on above: Performed By: #### C BC, ADIFF, ANEU, GFR, CMP ####[address] [address] Basophils Auto #/vol (Bld) 0.00 10 3/mcL Normal 0.00-0.27 [facility] ([place]) Comment on above: Performed By: #### C BC, ADIFF, ANEU, GFR, CMP ####[address] [address] Basophils/100 WBC Auto (Bld) 0.6 % Normal 0.0-2.5 [facility] ([place]) Comment on above: Performed By: #### C BC, ADIFF, ANEU, GFR, CMP ####[address] [address] Eosinophils Auto #/vol (Bld) 0.10 10 3/mcL Normal 0.00-0.65 [facility] ([place]) Comment on above: Performed By: #### C BC, ADIFF, ANEU, GFR, CMP ####[address] [address] Eosinophils/100 WBC Auto (Bld) 2.8 % Normal 0.0-6.0 [facility] ([place]) Comment on above: Performed By: #### C BC, ADIFF, ANEU, GFR, CMP ####[address] [address] Lymphocytes Auto #/vol (Bld) 1.20 10 3/mcL Normal 0.90-4.32 [facility] ([place]) Comment on above: Performed By: #### C BC, ADIFF, ANEU, GFR, CMP ####[address] [address] Lymphocytes/100 WBC Auto (Bld) 32.0 % Normal 20.0-40.0 [facility] ([place]) Comment on above: Performed By: #### C BC, ADIFF, ANEU, GFR, CMP ####[address] [address] Monocytes/100 WBC Auto (Bld) 10.8 % Normal 2.0-13.0 [facility] ([place]) Comment on above: Performed By: #### C BC, ADIFF, ANEU, GFR, CMP ####[address] [address] Neutrophils/100 WBC Auto (Bld) 53.8 % Normal 50.0-75.0 [facility] ([place]) Comment on above: Performed By: #### C BC, ADIFF, ANEU, GFR, CMP ####[address] [address] .GFRon 06-18-2018 GFR Non- 55 ml/min/1.73sqm Normal [facility] ([place]) Comment on above: Result Comment: GFR Population mean for , Non- Americans Ages 20-29 = 116 mL/min/1.73 sq.m. Ages 30-39 = 107 mL/min/1.73 sq.m. Ages 40-49 = 99 mL/min/1.73 sq.m. Ages 50-59 = 93 mL/min/1.73 sq.m. Ages 60-69 = 85 mL/min/1.73 sq.m. Ages 70+ = 75 mL/min/1.73 sq.m.Chronic Kidney Disease: Less than 60 mL/min/1.73 square metersEnd Stage Renal Disease: Less than 15 mL/min/1.73 square meters Performed By: #### C BC, ADIFF, ANEU, GFR, CMP ####[address] [address] GFR >60 Normal [facility] ([place]) Comment on above: Result Comment: GFR Population mean for , Non- Americans Ages 20-29 = 116 mL/min/1.73 sq.m. Ages 30-39 = 107 mL/min/1.73 sq.m. Ages 40-49 = 99 mL/min/1.73 sq.m. Ages 50-59 = 93 mL/min/1.73 sq.m. Ages 60-69 = 85 mL/min/1.73 sq.m. Ages 70+ = 75 mL/min/1.73 sq.m.Chronic Kidney Disease: Less than 60 mL/min/1.73 square metersEnd Stage Renal Disease: Less than 15 mL/min/1.73 square meters Performed By: #### C BC, ADIFF, ANEU, GFR, CMP ####[place] [address] .NEUABSon 06-18-2018 Neutrophil, Absolute 2.10 10 3/mcL Low 2.25-8.10 [facility] ([place] Comment on above: Performed By: #### C BC, ADIFF, ANEU, GFR, CMP ####[place] [address] CBCon 06-18-2018 Erythrocyte distribution width Auto Ratio (RBC) 15.0 % Normal 11.5-15.5 [facility] ([place] Comment on above: Performed By: #### C BC, ADIFF, ANEU, GFR, CMP ####[place] [address] Hematocrit Auto Volume Fraction (Bld) 39.1 % Normal 34.0-46.0 [facility] ([place] Comment on above: Performed By: #### C BC, ADIFF, ANEU, GFR, CMP ####[place] [address] Hemoglobin mass conc (Bld) 13.1 G/dL Normal 12.0-16.0 [facility] ([place] Comment on above: Performed By: #### C BC, ADIFF, ANEU, GFR, CMP ####[place] [address] MCH Auto Entitic mass (RBC) 31.5 pg Normal 27.0-33.0 [facility] ([place] Comment on above: Performed By: #### C BC, ADIFF, ANEU, GFR, CMP ####[place] [address] MCHC Auto mass conc (RBC) 33.5 G/dL Normal 32.0-36.0 [facility] ([place] Comment on above: Performed By: #### C BC, ADIFF, ANEU, GFR, CMP ####[place] [address] MCV Auto Entitic volume (RBC) 94.2 fL Normal 80.0-99.0 [facility] ([place] Comment on above: Performed By: #### C BC, ADIFF, ANEU, GFR, CMP ####[place] [address] Platelet mean volume Auto Entitic volume (Bld) 9.2 fL Normal 6.6-10.5 [facility] ([place] Comment on above: Performed By: #### C BC, ADIFF, ANEU, GFR, CMP ####[place] [address] Platelets Auto #/vol (Bld) 142 10 3/mcL Low 150-450 [facility] ([place] Comment on above: Performed By: #### C BC, ADIFF, ANEU, GFR, CMP ####[place] [address] RBC Auto #/vol (Bld) 4.15 10 6/mcL Normal 4.10-5.30 [facility] ([place] Comment on above: Performed By: #### C BC, ADIFF, ANEU, GFR, CMP ####[place] [address] WBC Auto #/vol (Bld) 3.90 10 3/mcL Low 4.50-10.80 [facility] ([place] Comment on above: Performed By: #### C BC, ADIFF, ANEU, GFR, CMP ####[place] [address] CMPon 06-18-2018 Albumin/Globulin mass ratio 1.0 {ratio} Normal 0.9-1.6 [facility] ([place] Comment on above: Performed By: #### C BC, ADIFF, ANEU, GFR, CMP ####[place] [address] ALP enzyme act/vol 62 U/L Normal 38-126 [facility] ([place] Comment on above: Performed By: #### C BC, ADIFF, ANEU, GFR, CMP ####[place] [address] ALT enzyme act/vol 21 U/L Normal 10-49 [facility] ([place] Comment on above: Performed By: #### C BC, ADIFF, ANEU, GFR, CMP ####[place] [address] AST enzyme act/vol 14 U/L Normal 8-34 [facility] ([place] Comment on above: Performed By: #### C BC, ADIFF, ANEU, GFR, CMP ####[place] [address] Bili Total 0.4 mg/dL Normal 0.2-1.2 [facility] ([place] Comment on above: Performed By: #### C BC, ADIFF, ANEU, GFR, CMP ####[place] [address] Creatinine mass conc 0.98 mg/dL Normal 0.50-1.20 [facility] ([place]) Comment on above: Performed By: #### C BC, ADIFF, ANEU, GFR, CMP ####[place] [address] Globulin Calculated mass conc (S) 3.0 G/dL Normal 1.5-3.8 [facility] ([place] Comment on above: Performed By: #### C BC, ADIFF, ANEU, GFR, CMP ####[place] [address] Protein mass conc 5.9 G/dL Low 6.0-8.5 [facility] ([place] Comment on above: Performed By: #### C BC, ADIFF, ANEU, GFR, CMP ####[place] [address] Urea nitrogen/Creatinine mass ratio 19.4 ratio Normal 10.0-22.0 [facility] ([place] Comment on above: Performed By: #### C BC, ADIFF, ANEU, GFR, CMP ####[place] [address] Albumin mass conc 2.9 G/dL Low 3.2-4.8 [facility] ([place] Comment on above: Performed By: #### C BC, ADIFF, ANEU, GFR, CMP ####[place] [address] Calcium mass conc 8.4 mg/dL Normal 8.4-10.1 [facility] ([place] Comment on above: Performed By: #### C BC, ADIFF, ANEU, GFR, CMP ####[place] [address] Chloride molar conc 104 mmol/L Normal 98-110 [facility] [place] Comment on above: Performed By: #### C BC, ADIFF, ANEU, GFR, CMP ####[place] [address] CO2 molar conc 33 mmol/L High 22-32 [facility] ([place] Comment on above: Performed By: #### C BC, ADIFF, ANEU, GFR, CMP ####[place] [address] Electrolyte Balance 6.0 mEq/L Normal 4.0-15.0 [facility] [place] Comment on above: Performed By: #### C BC, ADIFF, ANEU, GFR, CMP ####[place] [address] Glucose mass conc 125 mg/dL High 82-115 [facility] ([place] Comment on above: Performed By: #### C BC, ADIFF, ANEU, GFR, CMP ####[place] [address] Potassium molar conc 4.2 mmol/L Normal 3.5-5.0 [facility] ([place] Comment on above: Performed By: #### C BC, ADIFF, ANEU, GFR, CMP ####[address] [address] Sodium molar conc 143 mmol/L Normal 136-145 [facility]) Comment on above: Performed By: #### C BC, ADIFF, ANEU, GFR, CMP ####[address] [address] Urea nitrogen mass conc 19.0 mg/dL Normal 8.0-22.0 [facility]) Comment on above: Performed By: #### C BC, ADIFF, ANEU, GFR, CMP ####[place] [address] Depart Summaryon 06-18-2018 Depart Summary Normal [facility]) Discharge Summaryon 06-18-20 18 Discharge Summary Normal [facility]) Endoscopic Procedureon 06-18 Protein mass conc Normal [facility]) Inpatient Patient Summaryon 06-18-2018 Inpatient Patient Summary Normal [facility]) Outpatient Procedure Recordo n 06-18-2018 Protein mass conc Normal [facility]) .Auto Diffon 06-17-2018 Ammonia mass conc (P) 0.30 10 3/mcL Normal 0.09-1.40 [facility]) Comment on above: Performed By: #### C BC, ADIFF, ANEU, GFR, CMP ####[address] [address] Basophils Auto #/vol (Bld) 0.00 10 3/mcL Normal 0.00-0.27 [facility] ([place] Comment on above: Performed By: #### C BC, ADIFF, ANEU, GFR, CMP ####[address] [address] Basophils/100 WBC Auto (Bld) 0.8 % Normal 0.0-2.5 [facility]) Comment on above: Performed By: #### C BC, ADIFF, ANEU, GFR, CMP ####[address] [address] Eosinophils Auto #/vol (Bld) 0.10 10 3/mcL Normal 0.00-0.65 [facility] ([place] Comment on above: Performed By: #### C BC, ADIFF, ANEU, GFR, CMP ####[address] [address] Eosinophils/100 WBC Auto (Bld) 4.2 % Normal 0.0-6.0 [facility] ([place] Comment on above: Performed By: #### C BC, ADIFF, ANEU, GFR, CMP ####[address] [address] Lymphocytes Auto #/vol (Bld) 1.30 10 3/mcL Normal 0.90-4.32 [facility] ([place] Comment on above: Performed By: #### C BC, ADIFF, ANEU, GFR, CMP ####[address] [address] Lymphocytes/100 WBC Auto (Bld) 42.4 % High 20.0-40.0 [facility] ([place] Comment on above: Performed By: #### C BC, ADIFF, ANEU, GFR, CMP ####[address] [address] Monocytes/100 WBC Auto (Bld) 9.6 % Normal 2.0-13.0 [facility] ([place] Comment on above: Performed By: #### C BC, ADIFF, ANEU, GFR, CMP ####[address] [address] Neutrophils/100 WBC Auto (Bld) 43.0 % Low 50.0-75.0 [facility] ([place] Comment on above: Performed By: #### C BC, ADIFF, ANEU, GFR, CMP ####[address] [address] .GFRon 06-17-2018 GFR >60 Normal [facility] ([place] Comment on above: Result Comment: GFR Population mean for , Non- Americans Ages 20-29 = 116 mL/min/1.73 sq.m. Ages 30-39 = 107 mL/min/1.73 sq.m. Ages 40-49 = 99 mL/min/1.73 sq.m. Ages 50-59 = 93 mL/min/1.73 sq.m. Ages 60-69 = 85 mL/min/1.73 sq.m. Ages 70+ = 75 mL/min/1.73 sq.m.Chronic Kidney Disease: Less than 60 mL/min/1.73 square metersEnd Stage Renal Disease: Less than 15 mL/min/1.73 square meters Performed By: #### C BC, ADIFF, ANEU, GFR, CMP ####[place] [address] GFR Non- 52 ml/min/1.73sqm Normal [facility] ([place] Comment on above: Result Comment: GFR Population mean for , Non- Americans Ages 20-29 = 116 mL/min/1.73 sq.m. Ages 30-39 = 107 mL/min/1.73 sq.m. Ages 40-49 = 99 mL/min/1.73 sq.m. Ages 50-59 = 93 mL/min/1.73 sq.m. Ages 60-69 = 85 mL/min/1.73 sq.m. Ages 70+ = 75 mL/min/1.73 sq.m.Chronic Kidney Disease: Less than 60 mL/min/1.73 square metersEnd Stage Renal Disease: Less than 15 mL/min/1.73 square meters Performed By: #### C BC, ADIFF, ANEU, GFR, CMP ####[place] [address] .NEUABSon 06-17-2018 Neutrophil, Absolute 1.30 10 3/mcL Low 2.25-8.10 [facility] ([place] Comment on above: Performed By: #### C BC, ADIFF, ANEU, GFR, CMP ####[place] [address] A1Con 06-17-2018 Hemoglobin A1c/Hemoglobin.total mass fraction (Bld) 6.1 % High 4.0-6.0 [facility] ([place] Comment on above: Performed By: #### C BC, ADIFF, ANEU, GFR, CMP ####[address] [address] CBCon 06-17-2018 Erythrocyte distribution width Auto Ratio (RBC) 15.0 % Normal 11.5-15.5 [facility] ([place] Comment on above: Performed By: #### C BC, ADIFF, ANEU, GFR, CMP ####[place] [address] Hematocrit Auto Volume Fraction (Bld) 38.8 % Normal 34.0-46.0 [facility] ([place]) Comment on above: Performed By: #### C BC, ADIFF, ANEU, GFR, CMP ####[place] [address] Hemoglobin mass conc (Bld) 12.9 G/dL Normal 12.0-16.0 [facility] ([place] Comment on above: Performed By: #### C BC, ADIFF, ANEU, GFR, CMP ####[place] [address] MCH Auto Entitic mass (RBC) 31.3 pg Normal 27.0-33.0 [facility] ([place] Comment on above: Performed By: #### C BC, ADIFF, ANEU, GFR, CMP ####[place] [address] MCHC Auto mass conc (RBC) 33.3 G/dL Normal 32.0-36.0 [facility] ([place] Comment on above: Performed By: #### C BC, ADIFF, ANEU, GFR, CMP ####[place] [address] MCV Auto Entitic volume (RBC) 94.0 fL Normal 80.0-99.0 [facility] ([place] Comment on above: Performed By: #### C BC, ADIFF, ANEU, GFR, CMP ####[place] [address] Platelet mean volume Auto Entitic volume (Bld) 9.3 fL Normal 6.6-10.5 [facility] ([place] Comment on above: Performed By: #### C BC, ADIFF, ANEU, GFR, CMP ####[place] [address] Platelets Auto #/vol (Bld) 147 10 3/mcL Low 150-450 [facility] ([place] Comment on above: Performed By: #### C BC, ADIFF, ANEU, GFR, CMP ####[place] [address] RBC Auto #/vol (Bld) 4.13 10 6/mcL Normal 4.10-5.30 [facility] ([place] Comment on above: Performed By: #### C BC, ADIFF, ANEU, GFR, CMP ####[place] [address] WBC Auto #/vol (Bld) 3.10 10 3/mcL Low 4.50-10.80 [facility] ([place] Comment on above: Performed By: #### C BC, ADIFF, ANEU, GFR, CMP ####[place] [address] CMPon 06-17-2018 Creatinine mass conc 1.03 mg/dL Normal 0.50-1.20 [facility] ([place] Comment on above: Performed By: #### C BC, ADIFF, ANEU, GFR, CMP ####[place] [address] Urea nitrogen/Creatinine mass ratio 20.4 ratio Normal 10.0-22.0 [facility] ([place] Comment on above: Performed By: #### C BC, ADIFF, ANEU, GFR, CMP ####[place] [address] Albumin/Globulin mass ratio 1.3 {ratio} Normal 0.9-1.6 [facility] ([place] Comment on above: Performed By: #### C BC, ADIFF, ANEU, GFR, CMP ####[place] [address] ALP enzyme act/vol 63 U/L Normal 38-126 [facility] ([place] Comment on above: Performed By: #### C BC, ADIFF, ANEU, GFR, CMP ####[place] [address] Globulin Calculated mass conc (S) 2.4 G/dL Normal 1.5-3.8 [facility] ([place] Comment on above: Performed By: #### C BC, ADIFF, ANEU, GFR, CMP ####[place] [address] Protein mass conc 5.5 G/dL Low 6.0-8.5 [facility] ([place] Comment on above: Performed By: #### C BC, ADIFF, ANEU, GFR, CMP ####[address] [address] Albumin mass conc 3.1 G/dL Low 3.2-4.8 [facility] ([place] Comment on above: Performed By: #### C BC, ADIFF, ANEU, GFR, CMP ####[address] [address] ALT enzyme act/vol 20 U/L Normal 10-49 [facility] ([place] Comment on above: Performed By: #### C BC, ADIFF, ANEU, GFR, CMP ####[place] [address] AST enzyme act/vol 13 U/L Normal 8-34 [facility] ([place] Comment on above: Performed By: #### C BC, ADIFF, ANEU, GFR, CMP ####[place] [address] Bili Total 0.5 mg/dL Normal 0.2-1.2 [facility] ([place] Comment on above: Performed By: #### C BC, ADIFF, ANEU, GFR, CMP ####[address] [address] Calcium mass conc 9.0 mg/dL Normal 8.4-10.1 [facility] ([place] Comment on above: Performed By: #### C BC, ADIFF, ANEU, GFR, CMP ####[place] [address] Chloride molar conc 104 mmol/L Normal 98-110 [facility] [place] Comment on above: Performed By: #### C BC, ADIFF, ANEU, GFR, CMP ####[place] [address] CO2 molar conc 32 mmol/L Normal 22-32 [facility] ([place] Comment on above: Performed By: #### C BC, ADIFF, ANEU, GFR, CMP ####[place] [address] Electrolyte Balance 8.0 mEq/L Normal 4.0-15.0 [facility] [place] Comment on above: Performed By: #### C BC, ADIFF, ANEU, GFR, CMP ####[place] [address] Glucose mass conc 108 mg/dL Normal 82-115 [facility] ([place] Comment on above: Performed By: #### C BC, ADIFF, ANEU, GFR, CMP ####[place] [address] Potassium molar conc 4.3 mmol/L Normal 3.5-5.0 [facility] ([place] Comment on above: Performed By: #### C BC, ADIFF, ANEU, GFR, CMP ####[place] [address] Sodium molar conc 144 mmol/L Normal 136-145 [facility] ([place] Comment on above: Performed By: #### C BC, ADIFF, ANEU, GFR, CMP ####[place] [address] Urea nitrogen mass conc 21.0 mg/dL Normal 8.0-22.0 [facility] ([place] Comment on above: Performed By: #### C BC, ADIFF, ANEU, GFR, CMP ####[place] [address] Gastroenterology Progress No lou 06-17-2018 Protein mass conc Normal [facility] ([place] Hospitalist Progress Noteon 06-17-2018 Protein mass conc Normal [facility] ([place] MGon 06-17-2018 Magnesium mass conc 2.1 mg/dL Normal 1.6-2.4 [facility] [place] Comment on above: Performed By: #### C BC, ADIFF, ANEU, GFR, CMP ####[place] [address] MRI MRCPon 06-17-2018 MRI MRCP ORIGINALNoncontrast MRCP with console postprocessing and 3D MIP reconstructions. INDICATION: ? retained cbd stone. Nausea, upper abdominal pain COMPARISON: None FINDINGS: The intrahepatic bile ducts are normal in caliber without dilatation. The common bile duct measures up to 9 mm in diameter. This is normal for age. There is no common bile duct defect to suggest choledocholithiasis. The pancreatic duct is normal in caliber. At the tail of the pancreas, there are 3 tiny subcentimeter cystic areas each of which is on the order of 2 to 3 mm in size. These could reflect minimal prominent pancreatic duct side branches versus small pseudocyst. The findings could be related to remote inflammation. No other pancreatic lesions seen. Multiple bilateral parapelvic renal cysts are present LEFT greater than RIGHT. No additional contributory finding. IMPRESSION:1. No biliary dilatation, no evidence for choledocholithiasis.2. Prominent parapelvic renal cysts.3. Several very tiny cystic areas at the tail of the pancreas are likely the sequela of remote inflammation as discussed above. Interpreted By: Denzel Prabhakar MDPreliminary Report By: Denzel Prabhakar MDElectronically Signed By: Denzel Prabhakar MD Dictated Date: 06/17/2018 11:21:14 AM Prelim Date: 06/17/2018 11:21:14 AM Sign Date: 06/17/2018 11:24:58 AM Normal [facility] ([place]) .Auto Diffon 06-16-2018 Ammonia mass conc (P) 0.30 10 3/mcL Normal 0.09-1.40 [facility] ([place]) Comment on above: Performed By: #### C MICHELINE CUETO ANEU, GFR, CMP ####[place] [id number] [place] [address] Basophils Auto #/vol (Bld) 0.00 10 3/mcL Normal 0.00-0.27 [facility] ([place] Comment on above: Performed By: #### C MICHELINE CUETO ANEU, GFR, CMP ####[address] [address] Basophils/100 WBC Auto (Bld) 0.5 % Normal 0.0-2.5 [facility] ([place] Comment on above: Performed By: #### C MICHELINE CUETO ANEU, GFR, CMP ####[address] [address] Eosinophils Auto #/vol (Bld) 0.00 10 3/mcL Normal 0.00-0.65 [facility] ([place]) Comment on above: Performed By: #### C BC, ADIFF, ANEU, GFR, CMP ####[address] [address] Eosinophils/100 WBC Auto (Bld) 1.3 % Normal 0.0-6.0 [facility] ([place] Comment on above: Performed By: #### C BC, ADIFF, ANEU, GFR, CMP ####[address] [address] Lymphocytes Auto #/vol (Bld) 1.00 10 3/mcL Normal 0.90-4.32 [facility] ([place] Comment on above: Performed By: #### C BC, ADIFF, ANEU, GFR, CMP ####[address] [address] Lymphocytes/100 WBC Auto (Bld) 26.0 % Normal 20.0-40.0 [facility] ([place] Comment on above: Performed By: #### C BC, ADIFF, ANEU, GFR, CMP ####[address] [address] Monocytes/100 WBC Auto (Bld) 7.9 % Normal 2.0-13.0 [facility] ([place] Comment on above: Performed By: #### C BC, ADIFF, ANEU, GFR, CMP ####[address] [address] Neutrophils/100 WBC Auto (Bld) 64.3 % Normal 50.0-75.0 [facility] ([place] Comment on above: Performed By: #### C BC, ADIFF, ANEU, GFR, CMP ####[address] [address] .GFRon 06-16-2018 GFR Non- >60 Normal [facility] ([place] Comment on above: Result Comment: GFR Population mean for , Non- Americans Ages 20-29 = 116 mL/min/1.73 sq.m. Ages 30-39 = 107 mL/min/1.73 sq.m. Ages 40-49 = 99 mL/min/1.73 sq.m. Ages 50-59 = 93 mL/min/1.73 sq.m. Ages 60-69 = 85 mL/min/1.73 sq.m. Ages 70+ = 75 mL/min/1.73 sq.m.Chronic Kidney Disease: Less than 60 mL/min/1.73 square metersEnd Stage Renal Disease: Less than 15 mL/min/1.73 square meters Performed By: #### C BC, ADIFF, ANEU, GFR, CMP ####[place] [address] GFR >60 Normal [facility] ([place] Comment on above: Result Comment: GFR Population mean for , Non- Americans Ages 20-29 = 116 mL/min/1.73 sq.m. Ages 30-39 = 107 mL/min/1.73 sq.m. Ages 40-49 = 99 mL/min/1.73 sq.m. Ages 50-59 = 93 mL/min/1.73 sq.m. Ages 60-69 = 85 mL/min/1.73 sq.m. Ages 70+ = 75 mL/min/1.73 sq.m.Chronic Kidney Disease: Less than 60 mL/min/1.73 square metersEnd Stage Renal Disease: Less than 15 mL/min/1.73 square meters Performed By: #### C BC ADIFF, ANEU, GFR, CMP ####[place] [address] .NEUABSon 06-16-2018 Neutrophil, Absolute 2.40 10 3/mcL Normal 2.25-8.10 [facility] ([place] Comment on above: Performed By: #### C BC ADIFF, ANEU, GFR, CMP ####[address] [address] CBCon 06-16-2018 Erythrocyte distribution width Auto Ratio (RBC) 15.1 % Normal 11.5-15.5 [facility] ([place] Comment on above: Performed By: #### C BC, ADIFF, ANEU, GFR, CMP ####[place] [address] Hematocrit Auto Volume Fraction (Bld) 41.7 % Normal 34.0-46.0 [facility] ([place] Comment on above: Performed By: #### C BC, ADIFF, ANEU, GFR, CMP ####[place] [address] Hemoglobin mass conc (Bld) 14.1 G/dL Normal 12.0-16.0 [facility] ([place] Comment on above: Performed By: #### C BC, ADIFF, ANEU, GFR, CMP ####[place] [address] MCH Auto Entitic mass (RBC) 31.5 pg Normal 27.0-33.0 [facility] ([place] Comment on above: Performed By: #### C BC, ADIFF, ANEU, GFR, CMP ####[place] [address] MCHC Auto mass conc (RBC) 33.8 G/dL Normal 32.0-36.0 [facility] ([place] Comment on above: Performed By: #### C BC, ADIFF, ANEU, GFR, CMP ####[place] [address] MCV Auto Entitic volume (RBC) 93.4 fL Normal 80.0-99.0 [facility] ([place] Comment on above: Performed By: #### C BC, ADIFF, ANEU, GFR, CMP ####[place] [address] Platelet mean volume Auto Entitic volume (Bld) 8.7 fL Normal 6.6-10.5 [facility] ([place] Comment on above: Performed By: #### C BC, ADIFF, ANEU, GFR, CMP ####[place] [address] Platelets Auto #/vol (Bld) 165 10 3/mcL Normal 150-450 [facility] ([place] Comment on above: Performed By: #### C BC, ADIFF, ANEU, GFR, CMP ####[address] [address] RBC Auto #/vol (Bld) 4.47 10 6/mcL Normal 4.10-5.30 [facility] ([place] Comment on above: Performed By: #### C BC, ADIFF, ANEU, GFR, CMP ####[place] [address] WBC Auto #/vol (Bld) 3.70 10 3/mcL Low 4.50-10.80 [facility] ([place] Comment on above: Performed By: #### C BC, ADIFF, ANEU, GFR, CMP ####[place] [address] CMPon 06-16-2018 AST enzyme act/vol 23 U/L Normal 8-34 [facility] ([place] Comment on above: Performed By: #### C BC, ADIFF, ANEU, GFR, CMP ####[place] [address] Potassium molar conc 4.0 mmol/L Normal 3.5-5.0 [facility] ([place] Comment on above: Result Comment: Spec imen slightly hemolyzed. Performed By: #### C BC, ADIFF, ANEU, GFR, CMP ####[place] [address] Albumin/Globulin mass ratio 1.1 {ratio} Normal 0.9-1.6 [facility] ([place] Comment on above: Performed By: #### C BC, ADIFF, ANEU, GFR, CMP ####[place] [address] ALP enzyme act/vol 69 U/L Normal 38-126 [facility] ([place] Comment on above: Performed By: #### C BC, ADIFF, ANEU, GFR, CMP ####[place] [address] Bili Total 0.8 mg/dL Normal 0.2-1.2 [facility] ([place] Comment on above: Performed By: #### C BC, ADIFF, ANEU, GFR, CMP ####[place] [address] Creatinine mass conc 0.71 mg/dL Normal 0.50-1.20 [facility] ([place] Comment on above: Performed By: #### C BC, ADIFF, ANEU, GFR, CMP ####[address] [address] Globulin Calculated mass conc (S) 3.1 G/dL Normal 1.5-3.8 [facility] ([place] Comment on above: Performed By: #### C BC, ADIFF, ANEU, GFR, CMP ####[place] [address] Protein mass conc 6.5 G/dL Normal 6.0-8.5 [facility] ([place] Comment on above: Performed By: #### C BC, ADIFF, ANEU, GFR, CMP ####[place] [address] Urea nitrogen/Creatinine mass ratio 18.3 ratio Normal 10.0-22.0 [facility] ([place] Comment on above: Performed By: #### C BC, ADIFF, ANEU, GFR, CMP ####[place] [address] Albumin mass conc 3.4 G/dL Normal 3.2-4.8 [facility] ([place] Comment on above: Performed By: #### C BC, ADIFF, ANEU, GFR, CMP ####[place] [address] ALT enzyme act/vol 23 U/L Normal 10-49 [facility] ([place] Comment on above: Performed By: #### C BC, ADIFF, ANEU, GFR, CMP ####[place] [address] Calcium mass conc 9.0 mg/dL Normal 8.4-10.1 [facility] ([place] Comment on above: Performed By: #### C BC, ADIFF, ANEU, GFR, CMP ####[place] [address] Chloride molar conc 103 mmol/L Normal 98-110 [facility] [place] Comment on above: Performed By: #### C BC, ADIFF, ANEU, GFR, CMP ####[address] [address] CO2 molar conc 32 mmol/L Normal 22-32 [facility] ([place] Comment on above: Performed By: #### C BC, ADIFF, ANEU, GFR, CMP ####[address] [address] Electrolyte Balance 6.0 mEq/L Normal 4.0-15.0 [facility] [place] Comment on above: Performed By: #### C BC, ADIFF, ANEU, GFR, CMP ####[address] [address] Glucose mass conc 142 mg/dL High 82-115 [facility]) Comment on above: Performed By: #### C BC, ADIFF, ANEU, GFR, CMP ####[address] [address] Sodium molar conc 141 mmol/L Normal 136-145 [facility]) Comment on above: Performed By: #### C BC, ADIFF, ANEU, GFR, CMP ####[address] [address] Urea nitrogen mass conc 13.0 mg/dL Normal 8.0-22.0 [facility]) Comment on above: Performed By: #### C BC, ADIFF, ANEU, GFR, CMP ####[address] [address] Consultation Noteon 06-16-20 18 Consultation Note Normal [facility] [facility] Gastroenterology Consultatio non 06-16-2018 Gastroenterology Consultation Normal [facility]) History and Physicalon 06-16 History and Physical Normal [facility]) Interval Noteon 06-16-2018 Interval Note Normal [facility]) TROPIon 06-16-2018 Troponin I.cardiac mass conc 0.015 ng/mL Normal 0.000-0.040 [facility]) Comment on above: Result Comment: Trop onin I reference ranges (07/04/14): 0.00-0.040 ng/mL Negative and non-diagnostic. >0.040 ng/mL Consistent with cardiac damage, increased clinical risk and possibility of myocardial infarction. Serial measurements, a rise & fall in test results, clinical history, appropriate symptoms and/or ECG changes may help assess possibility of TX. *Other non-acute coronary syndrome conditions such as CHF, myocarditis, pulmonary emboli, sepsis and cardiac surgery could result in myocardial damage and increased troponin levels. Performed By: #### T DANO ####[place] [address] Clinical Lists Update: Pre08-22-2017 Left ventricular Ejection fraction 55-60 Invalid Interpretation Code [facility] Work Phone: [phone] Clinical Lists Update: 07-21-2017 Alanine aminotransferase (ALT) 14 U/L Invalid Interpretation Code [facility] Work Phone: [phone] Albumin 4.2 g/dL Invalid Interpretation Code [facility] Work Phone: [phone] Alkaline phosphatase (ALP) 80 U/L Invalid Interpretation Code [facility] Work Phone: [phone] Aspartate aminotransferase (AST) 13 U/L Invalid Interpretation Code [facility] Work Phone: [phone] Bilirubin (total) 0.8 mg/dL Invalid Interpretation Code [facility] Work Phone: [phone] BUN/Creatinine Ratio 27.7 mg/mg Invalid Interpretation Code [facility] Work Phone: [phone] Calcium 9.6 mg/dL Invalid Interpretation Code [facility] Work Phone: [phone] Chloride 104 mmol/L Invalid Interpretation Code [facility] Work Phone: [phone] Cholesterol 135 mg/dL Invalid Interpretation Code [facility] Work Phone: [phone] Cholesterol to HDL Ratio 2.9 {ratio} Invalid Interpretation Code [facility] Work Phone: [phone] CO2 29 mmol/L Invalid Interpretation Code [facility] Work Phone: [phone] Creatinine 0.83 mg/dL Invalid Interpretation Code [facility] Work Phone: [phone] Globulin 2.7 g/dL Invalid Interpretation Code [facility] Work Phone: [phone] Glucose mass conc 121 mg/dL Invalid Interpretation Code [facility] Work Phone: [phone] HDL Cholesterol 47 mg/dL Invalid Interpretation Code [facility] Work Phone: [phone] LDL Cholesterol 65 mg/dL Invalid Interpretation Code [facility] Work Phone: [phone] Magnesium 2.0 mg/dL Invalid Interpretation Code [facility] Work Phone: [phone] Potassium molar conc 4.2 mmol/L Invalid Interpretation Code [facility] Work Phone: [phone] Protein 6.9 g/dL Invalid Interpretation Code [facility] Work Phone: [phone] Sodium 141 mmol/L Invalid Interpretation Code [facility] Work Phone: [phone] Triglyceride 144 mg/dL Invalid Interpretation Code [facility] Work Phone: [phone] Urea nitrogen 23 mg/dL Invalid Interpretation Code [facility] Work Phone: [phone] Office Visit: [facility] 07-16-20 Documentation of current medications (procedure) Done Invalid Interpretation Code [facility] Work Phone: [phone] Fall risk assessment No Invalid Interpretation Code [facility] Work Phone: [phone] Replaced Document: Natasha Benton 07-16-2017 EKG QRS axis 3 deg Invalid Interpretation Code [facility] Work Phone: [phone] Interpretation Sinus Rhythm - frequ ent ectopic ventricular beat s # VECs = 2BORDERLINE RHYTHM Invalid Interpretation Code [facility] Work Phone: [phone] P [place] 58 deg Invalid Interpretation Code [facility] Work Phone: [phone] OH Interval 120 ms Invalid Interpretation Code [facility] Work Phone: [phone] Pulse (Heart Rate) 91 /min Invalid Interpretation Code [facility] Work Phone: [phone] QRS Duration 84 ms Invalid Interpretation Code [facility] Work Phone: [phone] QT Interval new path ms Invalid Interpretation Code [facility] Work Phone: [phone] QTc Swartz 412 ms Invalid Interpretation Code [facility] Work Phone: [phone] T [place] 26 deg Invalid Interpretation Code [facility] Work Phone: [phone] Lab Report: Lipid Profileon 01-27-2017 very low density lipoproteins 46 mg/dL High 5-40 [facility] Work Phone: [phone] Lab Report: Liver Profileon 01-27-2017 Bilirubin (direct) 0.10 mg/dL Invalid Interpretation Code 0.00-0.30 [facility] Work Phone: [phone] Globulin 3.2 g/dL Invalid Interpretation Code 2.3-3.5 [facility] Phone: [phone] Office Visit: [facility] 08-30-20 16 Dietary management education, guidance, and counseling (procedure) yes Invalid Interpretation Code [facility] Phone: [phone]) Lab Report: BNP,B-Type NATRI URETIC PEPTIDEon 02-29-2016 BNP 29.3 pg/mL Invalid Interpretation Code 0-100 [facility] Phone: [phone] Office Visiton 02-29-2016 Tobacco use CPHS Former smoker Invalid Interpretation Code [facility] Phone: [phone] Office Visiton 02-28-2015 cardiac risk group C Invalid Interpretation Code [facility] Phone: [phone] General cardiovascular disease 10Y risk [#] [place] N/A Invalid Interpretation Code [facility] Phone: [phone] Clinical Lists Update: 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 crop 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 10-01-2014 Erythrocytes (RBC) 4.66 10*6/uL Invalid Interpretation Code [facility] Phone: [phone] Hematocrit (HCT) 43.4 % Invalid Interpretation Code [facility] Work Phone: [phone] Hemoglobin mass conc (Bld) 14.4 g/dL Invalid Interpretation Code [facility] Work Phone: [phone] MCH 30.9 pg Invalid Interpretation Code [facility] Work Phone: [phone] MCHC mass conc (RBC) 33.2 g/dL Invalid Interpretation Code [facility] Work Phone: [phone] MCV 93.1 fL Invalid Interpretation Code [facility] Work Phone: [phone] Platelets 175 10*3/mm3 Invalid Interpretation Code [facility] Work Phone: [phone] Thyroid stimulating hormone (TSH) 1.49 u[iU]/mL Invalid Interpretation Code [facility] [employer] [facility] Work Phone: [phone] WBC (Leukocytes) 4.6 10*3/uL Invalid Interpretation Code [facility] Work Phone: [phone] Lab Report: BMPon 08-19-2014 Anion gap 6 mmol/L Normal 5-15 [facility] Work Phone: [phone] Lab Reporton 07-05-2013 Albumin/Globulin Ratio 1.9 {ratio} Invalid Interpretation Code [facility] Work Phone: [phone]) Lab Report: TROPon 3 Troponin I.cardiac mass conc ng/mL Normal <0.06 [facility] [employer] Work Phone: [phone] Replaced Document: Natasha Watts CG Observationson 03-09-2013 Pulse (Heart Rate) 401 ms Invalid Interpretation Code [facility] [employer] Work Phone: [phone] Clinical Lists Update: Prelo crop roller 01-11-2013 eGFR (non-black) 58 mL/min/{1.73_m2} Invalid Interpretation Code [facility] [employer] [facility] Work Phone: [phone] eGFR (non-black) 67 mL/min/{1.73_m2} Invalid Interpretation Code [facility] [employer] Work Phone: [phone] Erythrocyte distribution width Auto Ratio (RBC) 14.2 % Invalid Interpretation Code [facility] Work Phone: [phone] MCHC mass conc (RBC) 33.5 % Invalid Interpretation Code [facility] Work Phone: [phone] Panel Information [facility] Vital Signs Date Time Vital Sign Value Performing Clinician Facility 06-28-2025 21:13-0400 Body temperature 97.5 [degF] Dr. Anita Sung MD Work Phone: [facility] 06-28-2025 21:13-0400 Diastolic blood pressure 99 mm[Hg] Dr. Anita Sung MD Work Phone: [facility] 06-28-2025 21:13-0400 Heart rate 83 /min Dr. Anita Sung MD Work Phone: [facility] 06-28-2025 21:13-0400 Respiratory rate 16 /min Dr. Anita Sung MD Work Phone: [facility] 06-28-2025 21:13-0400 SaO2% (BldA) [Mass fraction] 95 % Dr. Anita Sung MD Work Phone: [facility] 06-28-2025 21:13-0400 Systolic blood pressure 177 mm[Hg] Dr. Anita Sung MD Work Phone: [facility] 06-28-2025 15:32-0400 Body height 154.[address] Anita Sung MD Work Phone: [phone] [place] [address] 06-28-2025 15:32-0400 Body mass index (BMI) [Ratio] 27 kg/m2 Dr. Anita Sung MD Work Phone: [facility] 06-28-2025 15:32-0400 Body weight 64.[address] Anita Sung MD Work Phone: [facility] 06-24-2025 08:08-0400 Body height 154.[address] Anita Sung MD Work Phone: [facility] 06-24-2025 08:08-0400 Body mass index (BMI) [Ratio] 25.4 kg/m2 Dr. Anita Sung MD Work Phone: [facility] 06-24-2025 08:08-0400 Body weight 61.[address] Anita Sung MD Work Phone: [facility] 06-24-2025 08:08-0400 Diastolic blood pressure 79 mm[Hg] Dr. Anita Sung MD Work Phone: [facility] 06-24-2025 08:08-0400 Heart rate 87 /min Dr. Anita Sung MD Work Phone: [facility] 06-24-2025 08:08-0400 Respiratory rate 18 /min Dr. Anita Sung MD Work Phone: [facility] 06-24-2025 08:08-0400 SaO2% (BldA) [Mass fraction] 95 % Dr. Anita Sung MD Work Phone: [facility] 06-24-2025 08:08-0400 Systolic blood pressure 170 mm[Hg] Dr. Anita Sung MD Work Phone: [facility] 04-22-2025 07:28-0400 Body height 154.[address] Anita Sung MD Work Phone: [phone] [place] [address] 04-22-2025 07:28-0400 Body mass index (BMI) [Ratio] 26.2 kg/m2 Dr. Anita Sung MD Work Phone: [phone] [address] 04-22-2025 07:28-0400 Body weight 63.[address] Anita Sung MD Work Phone: [phone] [place] [address] 04-22-2025 07:28-0400 Diastolic blood pressure 76 mm[Hg] Dr. Anita Sung MD Work Phone: [facility] 04-22-2025 07:28-0400 Heart rate 67 /min Dr. Anita Sung MD Work Phone: [facility] 04-22-2025 07:28-0400 Respiratory rate 18 /min Dr. Anita Sung MD Work Phone: [facility] 04-22-2025 07:28-0400 SaO2% (BldA) [Mass fraction] 96 % Dr. Anita Sung MD Work Phone: [facility] 04-22-2025 07:28-0400 Systolic blood pressure 148 mm[Hg] Dr. Anita Sung MD Work Phone: [phone] [place] [address] 09-02-2023 10:55-0500 Body height 154.[address] Anita Sung Work Phone: [facility] 09-02-2023 10:55-0500 Body mass index (BMI) [Ratio] 26 kg/m2 Dr. Anita Sung Work Phone: [facility] 09-02-2023 10:55-0500 Body weight 62.[address] Anita Sung Work Phone: [facility] 09-02-2023 10:55-0500 Diastolic blood pressure 71 mm[Hg] Dr. Anita Sung Work Phone: [facility] 09-02-2023 10:55-0500 Heart rate 67 /min Dr. Anita Sung Work Phone: [facility] 09-02-2023 10:55-0500 Respiratory rate 18 /min Dr. Anita Sung Work Phone: [facility] 09-02-2023 10:55-0500 SaO2% (BldA) [Mass fraction] 92 % Dr. Anita Sung Work Phone: [facility] 09-02-2023 10:55-0500 Systolic blood pressure 134 mm[Hg] Dr. Anita Sung Work Phone: [facility] 02-21-2023 16:00-0400 Diastolic blood pressure 55 mm[Hg] Dr. Anita Sung Work Phone: [facility] 02-21-2023 16:00-0400 Systolic blood pressure 148 mm[Hg] Dr. Anita Sung Work Phone: [facility] 02-21-2023 15:00-0400 Respiratory rate 18 /min Dr. Anita Sung Work Phone: [facility] 02-21-2023 12:48-0400 Body height 154.[address] Anita Sung Work Phone: [facility] 02-21-2023 12:48-0400 Body mass index (BMI) [Ratio] 26.2 kg/m2 Dr. Anita Sung Work Phone: [facility] 02-21-2023 12:48-0400 Body temperature 97 [degF] Dr. Anita Sung Work Phone: [facility] 02-21-2023 12:48-0400 Body weight 63.[address] Anita Sung Work Phone: [facility] 02-21-2023 12:48-0400 Heart rate 66 /min Dr. Anita Sung Work Phone: [facility] 02-21-2023 12:48-0400 SaO2% (BldA) [Mass fraction] 94 % Dr. Anita Sung Work Phone: [facility] 01-07-2023 22:38-0400 Diastolic blood pressure 78 mm[Hg] Dr. Anita Sung Work Phone: [facility] 01-07-2023 22:38-0400 Heart rate 71 /min Dr. Anita Sung Work Phone: [facility] 01-07-2023 22:38-0400 Respiratory rate 16 /min Dr. Anita Sung Work Phone: [facility] 01-07-2023 22:38-0400 SaO2% (BldA) [Mass fraction] 93 % Dr. Anita Sung Work Phone: [facility] 01-07-2023 22:38-0400 Systolic blood pressure 178 mm[Hg] Dr. Anita Sung Work Phone: [facility] 01-07-2023 21:21-0400 Body height 154.[address] Anita Sung Work Phone: [facility] 01-07-2023 21:21-0400 Body mass index (BMI) [Ratio] 28 kg/m2 Dr. Anita Sung Work Phone: [facility] 01-07-2023 21:21-0400 Body temperature 97.5 [degF] Dr. Anita Sung Work Phone: [facility] 01-07-2023 21:21-0400 Body weight 67.[address] Anita Sung Work Phone: [facility] 01-07-2023 13:13-0400 Diastolic blood pressure 65 mm[Hg] Dr. Anita Sung Work Phone: [facility] 01-07-2023 13:13-0400 Heart rate 68 /min Dr. Anita Sung Work Phone: [facility] 01-07-2023 13:13-0400 Respiratory rate 19 /min Dr. Anita Sung Work Phone: [facility] 01-07-2023 13:13-0400 Systolic blood pressure 163 mm[Hg] Dr. Anita Sung Work Phone: [facility] 01-07-2023 10:25-0400 Body height 154.[address] Anita Sung Work Phone: [facility] 01-07-2023 10:25-0400 Body mass index (BMI) [Ratio] 27.3 kg/m2 Dr. Anita Sung Work Phone: [facility] 01-07-2023 10:25-0400 Body temperature 97.8 [degF] Dr. Anita Sung Work Phone: [facility] 01-07-2023 10:25-0400 Body weight 65.[address] Anita Sung Work Phone: [facility] 01-07-2023 10:25-0400 SaO2% (BldA) [Mass fraction] 94 % Dr. Anita Sung Work Phone: [facility] 11-16-2022 15:43-0500 Diastolic blood pressure 64 mm[Hg] Dr. Anita Sung Work Phone: [facility] 11-16-2022 15:43-0500 Respiratory rate 19 /min Dr. Anita Sung Work Phone: [facility] 11-16-2022 15:43-0500 SaO2% (BldA) [Mass fraction] 100 % Dr. Anita Sung Work Phone: [facility] 11-16-2022 15:43-0500 Systolic blood pressure 172 mm[Hg] Dr. Anita Sung Work Phone: [facility] 11-16-2022 13:08-0500 Heart rate 58 /min Dr. Anita Sung Work Phone: [facility] 11-16-2022 11:00-0500 Body height 154.[address] Anita Sung Work Phone: [facility] 11-16-2022 11:00-0500 Body mass index (BMI) [Ratio] 26.4 kg/m2 Dr. Anita Sung Work Phone: [facility] 11-16-2022 11:00-0500 Body temperature 96.8 [degF] Dr. Anita Sung Work Phone: [facility] 11-16-2022 11:00-0500 Body weight 63.[address] Anita Sung Work Phone: [facility] 11-11-2022 12:49-0500 Body mass index (BMI) [Ratio] 26.4 kg/m2 Dr. Anita Sung Work Phone: [facility] 11-11-2022 12:49-0500 Body temperature 97.3 [degF] Dr. Anita Sung Work Phone: [facility] 11-11-2022 12:49-0500 Body weight 63.[address] Anita Sung Work Phone: [facility] 11-11-2022 12:49-0500 Diastolic blood pressure 72 mm[Hg] Dr. Anita Sung Work Phone: [facility] 11-11-2022 12:49-0500 Heart rate 74 /min Dr. Anita Sung Work Phone: [facility] 11-11-2022 12:49-0500 Respiratory rate 18 /min Dr. Anita Sung Work Phone: [facility] 11-11-2022 12:49-0500 SaO2% (BldA) [Mass fraction] 94 % Dr. Ainta Sung Work Phone: [facility] 11-11-2022 12:49-0500 Systolic blood pressure 199 mm[Hg] Dr. Anita Sung Work Phone: [facility] 09-03-2022 10:35-0500 Body height 154.[address] Anita Sung Work Phone: [facility] Work Phone: 09-03-2022 10:35-0500 Body mass index (BMI) [Ratio] 26 kg/m2 Dr. Anita Sung Work Phone: [facility] 09-03-2022 10:35-0500 Body weight 62.[address] Anita Sung Work Phone: [facility] 09-03-2022 10:35-0500 Diastolic blood pressure 75 mm[Hg] Dr. Anita Sung Work Phone: [facility] 09-03-2022 10:35-0500 Heart rate 76 /min Dr. Anita Sung Work Phone: [facility] 09-03-2022 10:35-0500 Respiratory rate 16 /min Dr. Anita Sung Work Phone: [facility] 09-03-2022 10:35-0500 SaO2% (BldA) [Mass fraction] 94 % Dr. Anita Sung Work Phone: [facility] 09-03-2022 10:35-0500 Systolic blood pressure 166 mm[Hg] Dr. Anita Sung Work Phone: [facility] 08-31-2022 10:42-0400 Body temperature 98.71 [degF] Lori Athy PA-C Work Phone: [facility] 08-31-2022 10:42-0400 Body weight 63.96 kg Lori Athy PA-C Work Phone: [facility] 08-31-2022 10:42-0400 Diastolic blood pressure 90 mm[Hg] Lori Athy PA-C Work Phone: [facility] 08-31-2022 10:42-0400 Heart rate 90 /min Lori Athy PA-C Work Phone: [facility] 08-31-2022 10:42-0400 Respiratory rate 21 /min Lori Athy PA-C Work Phone: [facility] 08-31-2022 10:42-0400 SaO2% (BldA) [Mass fraction] 95 % Lori Athy PA-C Work Phone: [facility] 08-31-2022 10:42-0400 Systolic blood pressure 180 mm[Hg] Lori Athy PA-C Work Phone: [facility] 07-16-2017 14:54-0400 BP Diastolic 70 mm[Hg] Cindy Bobo RN [facility] Work Phone: 07-16-2017 14:54-0400 BP Systolic 142 mm[Hg] Cindy Bobo RN [facility] Work Phone: 07-16-2017 14:54-0400 Height 358.14 cm Cindy Bobo RN [facility] Work Phone: 07-16-2017 14:54-0400 Pulse (Heart Rate) 90 /min Cindy Bobo RN [facility] Work Phone: 07-16-2017 14:54-0400 Respiratory Rate 18 /min Cindy Bobo RN [facility] Work Phone: 02-27-2017 10:17-0400 BMI (Body Mass Index) 25.75 kg/m2 [facility] Work Phone: 02-27-2017 10:170400 Weight 61.83 kg Cindy Bobo RN [facility] Work Phone: 08-30-2016 13:0400 BSA (Body Surface Area) 1.62 m2 Cindy Bobo RN [facility] Work Phone: Encounters Encounter Date Encounter Type Care Provider Facility Start: 06-28-2025 Evaluation and management of inpatient Dr. Mary Gregory MD -[facility] Work Phone: Start: 06-28-[address] Becca Sung MD Work Phone: -[facility] Start: 06-28-2025 Non-patient / Non-visit Dr. Mary Gregory MD -[facility] Work Phone: Start: 06-24-2025 End: 06-24-2025 Patient encounter procedure Savana SANCHEZ -[facility] Work Phone: Start: 06-24-2025 End: 06-24-[address] Anita Sung MD Work Phone: -[facility] Start: 06-22-2025 End: 06-22-2025 Emergency department patient visit JANUARY [facility] Start: 06-13-2025 End: 06-13-2025 ambulatory JANUARY [facility] Start: 06-11-2025 End: 06-12-2025 Emergency department patient visit JANUARY [facility] Start: 06-02-2025 End: 06-02-2025 Emergency department patient visit KRANTHI MAURICIO [facility] Start: 05-27-2025 End: 05-27-2025 ambulatory LYNNE BRAND STRATEGIST RAIN [facility] Start: 04-26-2025 Non-patient / Non-visit Dr. Ora chisholm MD -[facility] Work Phone: Start: 04-22-2025 End: 04-22-2025 Patient encounter procedure Savana SANCHEZ -[facility] Work Phone: Start: 04-22-2025 End: 04-22-[address] 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); Glaucoma suspect of both eyes; Macular RPE mottling; Nonexudative age-related macular degeneration, bilateral, early dry stage Start: 03-23-2025 End: 03-23-2025 ambulatory TOMMY DOTSON II Facility:[facility] Start: 03-22-2025 End: 03-22-2025 ambulatory ANITA MAGANA [facility] Start: 03-13-2025 End: 03-13-2025 Emergency department patient visit ANITA MAGANA [facility] Start: 03-08-2025 End: 03-08-2025 ambulatory ANITA MAGANA [facility] Start: 03-06-2025 End: 03-08-2025 ambulatory DEMETRIO WASHINGTON [facility] Start: 02-03-2025 End: 02-03-2025 ambulatory ALIX ANDERSON [facility] Start: 01-18-2025 End: 01-18-2025 ambulatory VAN DOTSON Facility:[facility] Start: 01-18-2025 End: 01-18-2025 Patient encounter procedure Van Dotson OD Work Phone: Optometry Comment on above: Bacterial conjunctiv itis of both eyes (Primary Dx) Start: 12-28-2024 End: 12-28-2024 ambulatory ANITA SUNG [facility] Start: 12-27-2024 End: 12-27-2024 ambulatory VAN DOTSON Facility:[facility] Start: 12-27-2024 End: 12-27-2024 Patient encounter procedure Vanlincoln Pricesalvador OD Work Phone: Optometry Comment on above: Trichiasis without e ntropion of right lower eyelid (Primary Dx); 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 Start: 11-09-2024 ambulatory Anita Sung Facility: [facility] Start: 10-18-2024 End: 10-18-2024 ambulatory VAN DOTSON Facility:[facility] Start: 10-18-2024 End: 10-18-2024 Patient encounter procedure Van T Clemente OD Work Phone: Optometry Comment on above: Nonexudative age-rel ated macular degeneration, bilateral, early dry stage (Primary Dx); Macular RPE mottling; Squamous blepharitis of upper and lower eyelids of both eyes; Chronically dry eyes, bilateral; 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 Start: 09-20-2024 End: 09-20-2024 ambulatory VAN DOTSON Facility:[facility] Start: 09-20-2024 End: 09-20-2024 Patient encounter procedure Van T Clemente OD Work Phone: Optometry Comment on above: Squamous blepharitis of upper and lower eyelids of both eyes (Primary Dx); Chronically dry eyes, bilateral Start: 09-15-2024 End: 09-15-2024 ambulatory TOMMY DOTSON II Facility:[facility] Start: 09-15-2024 End: 09-15-2024 Patient encounter procedure Tommy Dotson OD Work Phone: Optometry Comment on above: Trichiasis without e ntropion of right lower eyelid (Primary Dx); 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; Bacterial conjunctivitis of both eyes Start: 09-06-2024 End: 09-06-2024 ambulatory ANITA SUNG [facility] Start: 08-16-2024 End: 08-16-2024 ambulatory ALIX ANDERSON [facility] Start: 05-20-2024 End: 05-20-2024 ambulatory TOMMY DOTSON II Facility:[facility] Start: 05-20-2024 End: 05-20-2024 Patient encounter procedure Tommy Dotson OD Work Phone: Optometry Comment on above: Trichiasis without e ntropion of right lower eyelid (Primary Dx); 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; Allergic conjunctivitis of both eyes Start: 10-31-2023 Non-patient / Non-visit Dr. Ann Sung Work Phone: [facility] Start: 10-31-2023 End: 10-31-[address] Anita Sung Work Phone: [facility] Work Phone: Start: 10-31-2023 End: 10-31-[address] [facility] Work Phone: Start: 09-02-2023 End: 09-02-[address] Anita Sung Work Phone: [facility] Work Phone: Start: 05-28-2023 End: 05-28-2023 Patient encounter procedure Tommy Dotson OD Work Phone: Optometry Comment on above: Macular RPE mottling (Primary Dx); Nonexudative age-related macular degeneration, bilateral, early dry stage; 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; 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; Glaucoma suspect of both eyes; Pseudophakia of both eyes; Hyperopia, bilateral; Regular astigmatism, bilateral Start: 03-05-2023 End: 03-05-[address] Anita Sung Work Phone: [facility] Work Phone: Start: 03-05-2023 End: 03-05-[address] Anita Sung Work Phone: [facility] Start: 02-21-2023 End: 02-21-2023 Emergency department patient visit Dr. Anita Sung Work Phone: [facility]-Emergency Department Start: 01-07-2023 End: 01-07-2023 Emergency department patient visit Dr. Anita Sung Work Phone: [facility]-Emergency Department Start: 01-07-2023 End: 01-07-2023 Emergency department patient visit Dr. Anita Sung Work Phone: [facility]-Emergency Department Start: 01-02-2023 End: 01-02-2023 Patient encounter procedure Tommy Dotson OD Work Phone: Optometry Comment on above: Trichiasis without e ntropion of right lower eyelid (Primary Dx) Start: 11-19-2022 Non-patient / Non-visit Dr. Ann Sung Work Phone: [facility] Start: 11-19-2022 End: 11-19-[address] Anita Sung Work Phone: [facility]Cardi[facility] Start: 11-16-2022 End: 11-16-2022 Emergency department patient visit Dr. Anita Sung Work Phone: [facility]-Emergency Department Start: 11-11-2022 End: 11-11-[address] Anita Sung Work Phone: [facility] Start: 09-30-2022 Non-patient / Non-visit Dr. Ann Sung Work Phone: [facility] Start: 09-30-2022 End: 09-30-[address] Anita Sung Work Phone: [facility] Work Phone: Start: 09-30-2022 End: 09-30-[address] Anita Sung Work Phone: [facility] Start: 09-03-2022 End: 09-03-[address] Anita Sung Work Phone: [facility] Start: 08-31-2022 End: 08-31-2022 Patient encounter procedure Lori Martinez PA-C Work Phone: [facility] Comment on above: Acute URI (Primary D x) Start: 08-31-2022 End: 08-31-2022 Subsequent hospital visit by physician Xr [facility] Work Phone: Radiology Comment on above: Rhonchi [R09.89] Start: 05-20-2022 End: 05-20-2022 Patient encounter procedure Van Dotson OD Work Phone: Optometry Comment on above: Glaucoma suspect of both eyes (Primary Dx); Nonexudative age-related macular degeneration, bilateral, early dry stage; 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; Hyperopia, bilateral; Regular astigmatism, bilateral Start: 06-16-2018 End: 06-18-2018 Patient encounter MARLA ROWLAND Facility:A Procedures Date Procedure Procedure Detail Performing Clinician Start: 06-28-[address] Anita Sung MD Work Phone: Start: 06-28-2025 Plain chest X-ray Dr. Reji Sung MD Work Phone: Start: 06-22-2025 Urinalysis [facility] Comment on above: Result Comment: URIN ALYSIS Performed By: #### [id number] ####[facility],[address] [place] [address] Start: 06-11-2025 Urinalysis [facility] ER Comment on above: Result Comment: URIN ALYSIS Performed By: #### [id number] ####[facility],[address] [place] [address] Start: 06-02-2025 Urinalysis KRANTHI KELLY Comment on above: Result Comment: URIN ALYSIS Performed By: #### [id number] #### [facility],[address] [place] [address] Start: 04-09-2025 Urinalysis [facility] ER Comment on above: Result Comment: URIN ALYSIS Performed By: #### 2 [id number] ####[facility],[address] [place] [address] Start: 03-23-2025 Correction trichiasi s epilation forceps only Tommy Dotson OD Work Phone: Start: 03-23-2025 Computerized ophthal andrey imaging optic nerve Tommy Dotson OD Work Phone: Start: 03-13-2025 Urinalysis [facility] ER Comment on above: Result Comment: URIN ALYSIS Performed By: #### 2 [id number] ####[facility],[address] [place] [address] Start: 12-27-2024 Correction trichiasi s epilation forceps only Van Dotson OD Work Phone: Start: 10-18-2024 Computerized ophthal andrey imaging retina Van Dotson OD Work Phone: Start: 10-18-2024 Correction trichiasi s epilation forceps only Van Dotson OD Work Phone: Start: 09-15-2024 Correction trichiasi s epilation forceps only Tommy Dotson OD Work Phone: Start: 05-20-2024 Correction trichiasi s epilation forceps only Tommy Dotson OD Work Phone: Start: 05-28-2023 Correction trichiasi s epilation forceps only Tommy Dotson OD Work Phone: Start: 05-28-2023 Computerized ophthal andrey imaging retina Tommy Dotson OD Work Phone: Start: 03-05-2023 CT of abdomen and pe lvis without contrast Dr. Anita Sung Work Phone: Start: 02-21-2023 Plain chest X-ray Dr. Reji Sung Work Phone: Start: 01-07-2023 CT of abdomen and pe lvis without contrast Dr. Anita Sung Work Phone: Start: 01-07-2023 Plain chest X-ray Dr. Reji Sung Work Phone: Start: 01-02-2023 Correction trichiasi s epilation forceps only Tommy Dotson OD Work Phone: Start: 11-16-2022 Plain chest X-ray Dr. Reji Sung Work Phone: Start: 11-16-2022 CT of head without contrast Dr. Anita Sung Work Phone: Start: 08-31-2022 Radiologic exam ches t 2 views Lori Patt Martinez PA-C Work Phone: Start: 05-20-2022 End: 05-20-2022 Visual field xm uni/bi w/interp extended exam Van Dotson OD Work Phone: Start: 07-29-2017 End: 08-04-2017 [...] months Lizz Dhaliwal Start: 02-27-2017 End: 07-16-2017 MMLizz Tam MD Start: 01-27-2017 End: 01-27-2017 *Hepatic Function Panel Lizz Dhaliwal Start: 01-27-2017 End: 01-27-2017 Lipid 1996 panel - Serum or Plasma Parminder Tam MD Start: 08-30-2016 End: 08-30-2016 SNACK STEWARDESS Savana Goldsmith PA-C Work Phone: Start: 08-30-2016 [...] PA-C Work Phone: Start: 08-29-2015 End: 08-29-2015 SNACK STEWARDESS Savana Goldsmith PA-C Work Phone: Start: 08-29-2015 [...] PA-C Work Phone: Start: 08-19-2014 End: 08-19-2014 SNACK STEWARDESS Savana Goldsmith PA-C Work Phone: Start: 08-19-2014 [...] PA-C Work Phone: Start: 07-26-2013 End: 07-26-2013 SNACK STEWARDESS Savana Goldsmith PA-C Work Phone: Start: 07-26-2013 [...] 01-20-2013 Left Heart Cath Parminder Tam MD Start: 12-07-2012 History of placement of stent for coronary artery disease History of coronary artery stent placement Dr. Anita Sung Work Phone: Comment on above: PCI-JUAN-LAD 3.0 x 20 mm Promus and RPDA 2.5 x 12 mm Promus 12/07/2012 Plan of Treatment Date Care Activity Detail Author Start: 10-03-2025 End: 10-03-2025 Patient encounter procedure 10/03/2025 1:00 PM EST Office Visit [facility] [address] [place] [address] Van Dotson, OD [address] [place] [address] Eye exam/[facility] Comment on above: [facility] exam[facility] Start: 09-12-2025 Diabetes Screening Diabetes Screenin g [facility] Start: 06-29-2025 [facility] Start: 06-28-2025 Ver[facility] Start: 06-28-2025 Hospital admission, emergency, from emergency room, medical nature [facility] Start: 06-28-2025 Admission procedure [facility] Start: 06-28-2025 [facility] Start: 06-28-2025 End: 06-28-2025 [facility] Start: 03-23-2025 End: 03-23-2025 Patient encounter procedure 03/23/2025 8:00 AM EDT Office Visit [facility] [address] [place] [address] Tommy Dotson II, OD [address] [place] [address] Eye exam/[facility] Comment on above: Eye exam/[place] Start: 01-09-2025 Covid-19 Vaccine ( season) Covid-19 Vaccine () [facility] Start: 10-27-2024 Advance Directive Discussion Advance Directive Discussion [facility] Start: 10-13-2024 End: 10-13-2024 Patient encounter procedure 10/13/2024 1:30 PM EST Office Visit [facility] [address] [place] [address] Tommy Dotson II, OD [address] [place] [address] Dry eye follow up ? dilated exam Optometry Comment on above: Dry eye follow up ? dilated exam Start: 06-27-2024 Covid-19 Vaccine () Covid-19 Vaccine () [facility] Start: 06-27-2024 Influenza vaccination Influenza Vacc ine (#1) [facility] Start: 05-28-2024 Hepatitis C antibody , confirmatory test DILATED RETINAL EXAM [facility] Start: 11-18-2023 Covid-19 Vaccine ( season) Covid-19 Vaccine ( season) [facility] Start: 10-27-2023 Advance Directive Discussion Advance Directive Discussion [facility] Start: 06-27-2023 Influenza vaccination INFLUENZA (#1) [facility] Start: 03-12-2023 Hemoglobin A1c/Hemoglobin.total in Blood HBA1C [facility] Start: 02-21-2023 [facility] Start: 02-21-2023 [facility] Start: 01-07-2023 [facility] Start: 01-07-2023 Troponin I measurement [facility] Start: 12-01-2022 COVID-19 VACCINE (6 - Pfizer series) COVID-19 VACCINE (6 - Pfizer series) [facility] Start: 11-26-2022 Hepatitis C antibody , confirmatory test DILATED RETINAL EXAM [facility] Start: 11-16-2022 [facility] Start: 10-27-2022 ADVANCE DIRECTIVE DISCUSSION ADVANCE DIRECTIVE DISCUSSION [facility] Start: 10-27-2022 DEPRESSION ASSESSMENT DEPRESSION ASS ESSMENT [facility] Start: 09-06-2022 Hemoglobin A1c/Hemoglobin.total in Blood HBA1C [facility] Start: 08-31-2022 End: 09-14-2022 Influenza virus A and B RNA and SARS-CoV-2 (COVID-19) N gene panel - Respiratory specimen by LISSETTE with probe detection COVID WITH FLUA+B, ROUTINE Microbiology Routine Acute URI Expected: 08/31/2022, Expires: 09/14/2022 [facility] Work Phone: Comment on above: Expected: 08/31/2022 , Expires: 09/14/2022 Start: 06-27-2022 Influenza vaccination INFLUENZA (#1) [facility] Start: 10-27-2021 ADVANCE DIRECTIVE DISCUSSION ADVANCE DIRECTIVE DISCUSSION [facility] Start: 10-27-2021 DEPRESSION ASSESSMENT DEPRESSION ASS ESSMENT [facility] Start: 08-04-2018 Hepatitis B surface antibody level LDL CHOLESTEROL [facility] Start: 07-29-2018 Hepatitis B surface antibody level LDL CHOLESTEROL [facility] Start: 02-02-2018 End: 08-04-2017 *Hepatic Function Panel *Hepatic Function Panel [facility] Work Phone: Start: 02-02-2018 End: 08-04-2017 Lipid panel [AGGREGATE] *Lipid Profile CC PCP [facility] Work Phone: Start: 09-02-2017 End: 09-02-2017 Appointment Appointment [facility] Work Phone: Start: 07-29-2017 End: 08-04-2017 *Hepatic Function Panel *Hepatic Function Panel [facility] Work Phone: Start: 07-29-2017 End: 08-04-2017 Lipid panel [AGGREGATE] *Lipid Profile CC PCP [facility] Work Phone: Start: 07-16-2017 End: 07-16-2017 Follow Up Appt Other Follow Up Appt Other [facility] Work Phone: Start: 02-27-2017 End: 07-16-2017 Follow Up Appt 6 months Follow Up Appt 6 months [facility] Work Phone: Start: 02-27-2017 End: 07-16-2017 MMM MMM [facility] Work Phone: Start: 01-27-2017 End: 01-27-2017 *Hepatic Function Panel *Hepatic Function Panel [facility] Work Phone: Start: 01-27-2017 End: 01-27-2017 Lipid panel [AGGREGATE] *Lipid Profile CC PCP [facility] Work Phone: Start: 08-30-2016 End: 08-30-2016 SNACK STEWARDESS SNACK STEWARDESS [facility] Work Phone: Start: 08-30-2016 End: 08-30-2016 Follow Up Appt 6 months Follow Up Appt 6 months [facility] Work Phone: Start: 07-29-2016 End: 07-29-2016 *Hepatic Function Panel *Hepatic Function Panel [facility] Work Phone: Start: 07-29-2016 End: 07-29-2016 Lipid panel [AGGREGATE] *Lipid Profile CC PCP [facility] Work Phone: Start: 02-29-2016 End: 07-29-2016 BNP *Brain Natriuretic Peptide BNP [facility] Work Phone: Start: 02-29-2016 End: 02-29-2016 Follow Up Appt 6 months Follow Up Appt 6 months [facility] Work Phone: Start: 02-29-2016 End: 02-29-2016 MMM MMM [facility] Work Phone: Start: 01-23-2016 End: 01-26-2016 *Hepatic Function Panel *Hepatic Function Panel [facility] Work Phone: Start: 01-23-2016 End: 01-26-2016 Lipid panel [AGGREGATE] *Lipid Profile CC PCP [facility] Work Phone: Start: 08-29-2015 End: 08-29-2015 Carotid duplex Carotid duplex [facility] Work Phone: Start: 08-29-2015 End: 08-29-2015 SNACK STEWARDESS SNACK STEWARDESS [facility] Work Phone: Start: 08-29-2015 End: 08-29-2015 Follow Up Appt 6 months Follow Up Appt 6 months [facility] Work Phone: Start: 07-19-2015 End: 07-25-2015 *Hepatic Function Panel *Hepatic Function Panel [facility] Work Phone: Start: 07-19-2015 End: 07-25-2015 Lipid panel [AGGREGATE] *Lipid Profile CC PCP [facility] Work Phone: Start: 02-28-2015 End: 02-28-2015 Follow Up Appt 6 months Follow Up Appt 6 months [facility] Work Phone: Start: 02-28-2015 End: 02-28-2015 MMM MMM [facility] Work Phone: Start: 12-22-2014 End: 01-16-2015 *Hepatic Function Panel *Hepatic Function Panel [facility] Phone: Start: 12-22-2014 End: 01-16-2015 Lipid panel [AGGREGATE] *Lipid Profile CC PCP [facility] Work Phone: Start: 08-19-2014 End: 08-19-2014 *BMP *BMP [facility] Work Phone: Start: 08-19-2014 End: 08-19-2014 Carotid duplex Carotid duplex [facility] Work Phone: Start: 08-19-2014 End: 08-19-2014 SNACK STEWARDESS SNACK STEWARDESS [facility] Work Phone: Start: 08-19-2014 End: 08-19-2014 Ecg routine ecg w/least 12 lds w/i&r EKG (In office) [facility] Work Phone: Start: 08-19-2014 End: 08-19-2014 Follow Up Appt 6 months Follow Up Appt 6 months [facility] Phone: Start: 08-19-2014 End: 09-01-2014 Magnesium *Magnesium [facility] Work Phone: Start: 06-21-2014 End: 06-21-2014 *Hepatic Function Panel *Hepatic Function Panel [facility] Phone: Start: 06-21-2014 End: 06-21-2014 Lipid panel [AGGREGATE] *Lipid Profile CC PCP [facility] Work Phone: Start: 03-07-2014 End: 03-07-2014 Cardiovascular stress test using treadmill Treadmill stress test (no imaging) [facility] Phone: Start: 02-22-2014 End: 02-22-2014 Follow Up Appt 6 months Follow Up Appt 6 months [facility] Work Phone: Start: 02-22-2014 End: 02-22-2014 MMM MMM [facility] Work Phone: Start: 12-25-2013 End: 01-15-2014 *Hepatic Function Panel *Hepatic Function Panel [facility] Work Phone: Start: 12-25-2013 End: 01-15-2014 Lipid panel [AGGREGATE] *Lipid Profile CC PCP [facility] Work Phone: Start: 07-26-2013 End: 07-26-2013 SNACK STEWARDESS SNACK STEWARDESS [facility] Work Phone: Start: 07-26-2013 End: 07-26-2013 Follow Up Appt 6 months Follow Up Appt 6 months [facility] Work Phone: Start: 03-09-2013 End: 03-09-2013 Ecg routine ecg w/least 12 lds w/i&r EKG (In office) [facility] Work Phone: Start: 03-09-2013 End: 03-09-2013 Follow Up Appt Other Follow Up Appt Other [facility] Work Phone: Start: 03-09-2013 End: 03-09-2013 Troponin I.cardiac mass conc *TROP - Troponin I [facility] Work Phone: Start: 01-20-2013 End: 02-04-2013 *Hepatic Function Panel *Hepatic Function Panel [facility] Work Phone: Start: 01-20-2013 End: 01-20-2013 Cardiac Rehab Cardiac Rehab [facility] Work Phone: Start: 01-20-2013 End: 01-20-2013 Follow Up Appt 6 months Follow Up Appt 6 months [facility] Work Phone: Start: 01-20-2013 End: 02-04-2013 Lipid panel [AGGREGATE] *Lipid Profile [facility] Work Phone: Start: 01-20-2013 End: 01-20-2013 MMM MMM [facility] Work Phone: Start: 12-24-2012 End: 12-21-2012 Left Heart Cath Left Heart Cath [facility] Work Phone: Start: 2007 BONE DENSITY BONE DENSITY [facility] Start: 2007 Screening for osteoporosis Bone Density Screening [facility] Start: 1992 SHINGRIX VACCINE (1 of 2) GARVIN GRIX VACCINE (1 of 2) [facility] Start: 1961 Urine microalbumin profile [facility] Start: 1960 ANNUAL PCP TEAM LIVESTOCK FEEDER JACQUES DISEASE VISIT ANNUAL PCP TEAM CHRONIC DISEASE VISIT [facility] Start: 1960 Anxiety Screening Anxiety Screening [facility] Start: 1960 BP CONTROLLED (<130/80) BP CON TROLLED (<130/80) [facility] Start: 1960 Depression Screening Depression Scre ening [facility] Start: 1954 Adult depression screening assessment DEPRESSION SCREENING [facility] Start: 1952 3 comp foot exam completed DIABETIC FOOT EXAM [facility] Start: 1952 Hepatitis B screening URINE ALBUMIN:CREATININE RATIO [facility] Start: 1948 PNEUMOCOCCAL: 65+ (1 - PCV) PNEUMOCOCCAL: 65+ (1 - PCV) [facility] Magnesium measurement [facility] Heart Views W str ess and W radionuclide IV [facility] Patient Education [facility] Work Phone: Patient referral [facility] Work Phone: Troponin T.cardiac [Mass/volume] in Serum or Plasma by High sensitivity method [facility] Carotid arteries [facility] Renal artery [facility] Immunizations Immunization Date Immunization Notes Care Provider Emily hickman 07-19-2023 influenza virus vaccine, unspecified formulation Tommy Dotson II, OD Work Phone: [facility] Payers Date Payer Category Payer Self-pay [id number] 2021 Medicare (Managed Care) [employer] [id number] 2021 Unknown ANTHEM BLUE CROS S AND BLUE SHIELD ANTHEM MEDIBLUE HMO [id number] 2021-Present [phone] [address] [place] [address] HMO [id number] 2021 Unknown [id number] 2021 Medicare [id number] 2018 Medicare [id number] 2015 Medicare [id number] 1940 Unknown [id number] [id number]. 2.65 1942 Unknown [id number] 2.16.840.1.319769.3.579. 2.65 1942 Unknown [id number] 2.16.840.1.694341.3.579. 2.65 1942 Unknown [id number] 2.16.840.1.816333.3.579. 2.651 1942 Unknown [id number] 2.16.840.1.479350.3.579. 2.651 1942 Unknown [id number] 2.16.840.1.315611.3.579. 2.65 1942 Unknown [id number] 2.16.840.1.604398.3.579. 2.651 1942 Unknown [id number] 2.16.840.1.241592.3.579. 2.651 1942 Unknown [id number] 2.16.840.1.839518.3.579. 2.651 1942 Unknown [id number] 2.16.840.1.115868.3.579. 2.651 1942 Unknown [id number] 2.16.840.1.539561.3.579. 2.65 1942 Unknown [id number] 2.16.840.1.217446.3.579. 2.651 1942 Unknown [id number] 2.16.840.1.754378.3.579. 2.651 1942 Unknown [id number] 2.16.840.1.872206.3.579. 2.651 1942 Unknown [id number] 2.16.840.1.866246.3.579. 2.651 1942 Unknown [id number] 2.16.840.1.748556.3.579. 2.651 Unknown [id number] 2.16.840.1.457814.3.579. 2.462 Unknown [id number] 2.16.840.1.367955.3.579. 2.462 Unknown [id number] 2.16.840.1.710936.3.579. 2.462 Social History Date Type Detail Facility Start: 11-22-2014 End: 06-28-2025 Tobacco smoking status NHIS Ex-smoker [facility] End: 10-27-1988 History of tobacco use Current smoker [facility] Start: 11-22-2014 End: 09-15-2024 Tobacco use and exposure Smokeless tobacco non-user [facility] Start: 05-20-2022 End: 03-23-2025 Alcohol intake Current non-drinker of alcohol (finding) [facility] Start: 1940 Sex Assigned At Not on file [facility] Start: 05-10-2022 End: 05-20-2022 Exposure to SARS-CoV-2 (event) Not sure [facility] End: 10-27-1988 History of tobacco use Cigarette Smoker [facility] Start: 09-03-2022 End: 09-02-2023 Tobacco smoking status NHIS Unknown if ever smoked [facility] Start: 10-10-2020 None [facility] Start: 1940 Sex Assigned At Female W [facility] Start: 03-13-2023 End: 05-28-2023 History of Social function [facility] Start: 03-13-2023 End: 05-28-2023 Tobacco use panel [facility] National Score (1-100), lower number is lower risk 72 [facility] Functional Status Date Assessment Result Facility 12-21-2014 Are you deaf, or do you have serious difficulty hearing No 12/21/2014 1:48 PM Nas Bloom [facility] 12-21-2014 Are you blind, or do you have serious difficulty seeing, even when wearing glasses No 12/21/2014 1:48 PM Nas Bloom [facility] 12-21-2014 Do you have serious difficulty walking or climbing stairs No 12/21/2014 1:48 PM Nas Bloom [facility] 12-21-2014 Do you have difficul ty dressing or bathing No 12/21/2014 1:48 PM Nas Bloom [facility] 12-21-2014 Because of a physica l, mental, or emotional condition, do you have difficulty doing errands alone such as visiting a physician's office or shopping No 12/21/2014 1:48 PM Nas Bloom [facility] Mental Status Date Assessment Result Facility 06-28-2025 Cognitive function Voice/Name [facility] Work Phone: 02-21-2023 Cognitive function Voice/Name [facility] Work Phone: 01-07-2023 Cognitive function Level Of Cons ciousness Awake;Alert;Appropriate;Fol lows Commands [facility] Work Phone: 11-16-2022 Cognitive function Level Of Cons ciousness Awake;Alert;Appropriate;Fol lows Commands [facility] Work Phone: 12-21-2014 Because of a physica l, mental, or emotional condition, do you have serious difficulty concentrating, remembering, or making decisions No 12/21/2014 1:48 PM Nas Bloom [facility] Clinical Notes 12-07-2012 to 06-28-2025 Note Date & Type Note Facility 06-28-2025 History and physi august note [facility] 06-28-2025 Discharge summary [facility] 06-28-2025 Radiology Diagnostic study note [facility] Imaging Services [address] [place] [address] Chest 1 View (Portable) MR#: [id number] Acct: [id number] Name: NATALIEMarch Rep #: [id number] : 1940 F 85 From: Mey Corona MD PCP: Care Physician,No Primary Status: REG ER Study:Chest 1 View (Portable) Date of Exam: 06/28/25 Exam# [id number] Ordering Dr: Reji Hernandez MD PROCEDURE: CHEST 1 VIEW (PORTABLE) 06/28/2025 REASON FOR EXAM: CHEST PAIN TECHNIQUE: Frontal view of the chest. COMPARISON: 06/23/24 FINDINGS: Mild pulmonary vascular congestion and interstitial edema. no focal consolidation. No pleural effusion or pneumothorax. Mild cardiomegaly, stable. Calcified aortic arch. No acute fractures. RAD/Chest 1 View (Portable) IMPRESSION: Mild pulmonary vascular congestion and interstitial edema. No focal consolidation. Mild cardiomegaly, stable. Reading Location: [facility] CC: Dr. Camden Hernandez MD; No Primary Care Physician ~ Probation Supervisor: Signed [facility] 06-28-2025 Discharge summary Note Date/Time June 28, 2025 8:39pm [facility] Medical Records Department [address] [place] [address] Emergency Department Summary 06/28/25 MR#: [id number] Acct: [id number] Name: NATALIEMarch Rep #:[id number] : 1940 85 From: Camden Hernandez MD PCP: Care Physician,No Primary Status :REG ER Location: ED HPI History of Present Illness Chief Complaint: Chest Pain Informant: patient and family Narrative Narrative: 85-year-old female has been having chest burning radiating to her jaw and both upper extremities for maybe the past month. States she has been to an outside ER 3 times in that period of time for this and discharged each time. A month ago, she had an EGD because of the symptoms that were unremarkable. She states she tried Mylanta and lidocaine GI cocktail during one of the visits and it did not help her burning at all. She states it has been intermittent, nonexertionalnonpleuritic, but it seems to becoming more frequent and she has it now more of the time then she does not have it. Lying down does not trigger the symptoms. Nothing else seems to trigger the symptoms. Eating does not modify the symptomsat all. She has a history of stents and paroxysmal atrial fibrillation for which she is anticoagulated on Eliquis she denies feeling any palpitations or syncope recently. She has leg edema that has been fairly unchanged recently. She tried to follow-up make an appointment with cardiology at [facility] where she is an established patient, and they referred her here to the ER today. [facility] Medical History PAF (paroxysmal atrial fibrillation) Kidney stones Unstable angina Bilateral carotid artery stenosis GERD (gastroesophageal reflux disease) Essential (primary) hypertension Dysphagia Celiac artery stenosis Acute right hip pain LVH (left ventricular hypertrophy) Renal cysts, acquired, bilateral History of Helicobacter pylori infection Osteoarthritis History of bacterial pneumonia Hemorrhoids Diverticulosis Secondary pulmonary arterial hypertension NSTEMI (non-ST elevated myocardial infarction) Carotid bruit HLD (hyperlipidemia) Atherosclerotic heart disease of [place] coronary artery without angina pectoris Home Medications ?Medication ?Instructions ?Recorded ?Last Taken ?Type aspirin 81 mg tablet,delayed 81 mg PO DAILY@0800 12/2707/13/18 History release atorvastatin 40 mg tablet 40 mg PO QHS 12/27/13 Unknow n History isosorbide mononitrate 60 mg 60 mg PO DAILY #90 tabs 1 Unknown Rx tablet,extended release 24 hr olopatadine 0.2 % eye drops 1 drp ophthalmic (eye) WILLIE LY 08/29/20 Unknown History (Pataday) metoprolol succinate 50 mg 25 mg PO BID 08/21/21 Unkno wn History tablet,extended release 24 hr melatonin 5 mg capsule 5 mg PO QHS PRN Sleep Unknown History propylene glycol 0.6 % eye drops 1 drp ophthalmic (eye ) DAILY PRN 09/03/22 Unknown History (Systane Balance) Dry Eyes omeprazole 40 mg capsule,delayed 40 mg PO DAILY #30 ca ps 02/21/23 Unknown Rx release buspirone 5 mg tablet 5 mg PO BID 09/02/23 Unknown History cholecalciferol (vitamin D3) 125 125 mcg PO DAILY 05/18 Unknown History mcg (5,000 unit) capsule apixaban 5 mg tablet (Eliquis) 5 mg PO BID 04/22/25 Un known History cetirizine 10 mg tablet (All Day 10 mg PO QDAY PRN all ergy symptoms 04/22/25 Unknown History Allergy (cetirizine)) clonidine HCl 0.1 mg tablet 0.1 mg PO BID PRN blood pr essure 04/22/25 Unknown History furosemide 20 mg tablet 40 mg PO DAILY 04/22/25 Unkn own History lisinopril 40 mg tablet 30 mg PO DAILY 04/22/25 Unkn own History magnesium 200 mg tablet 400 mg PO BID 06/24/25 Unkno wn History nitroglycerin 0.4 mg sublingual 0.4 mg sublingual Q5-1 5M PRN chest 06/24/25 Unknown Rx tablet pain #25 tabs Allergy/AdvReac Type Severity Reaction Status Date / Time pantoprazole Allergy Rash Verified 06/28/25 15:36 hydrocodone bitartrate (From AdvReac Other Verified 06/28/25 15:36 Vicodin) metronidazole AdvReac nausea Verified 06/28/25 15:36 tramadol AdvReac Nausea Verified 06/28/25 15:36 Family History Father Cancer Surgical History Hx of cataract extraction History of esophagogastroduodenoscopy (EGD) History of left heart catheterization (06/2018) History of bladder surgery historybladder surgery History of hysterectomy History of tubal ligation History of laparoscopic appendectomy History of laparoscopic cholecystectomy History of excision of pilonidal cyst History of coronary artery stent placement (12/07/12) Social History household members: none Smoking Status: Former smoker alcohol intake: never substance use type: does not use caffeine: Yes what type of physical activity do you participate in: none frequency: does not exercise seatbelt use: always ROS ROS ED Constitutional Constitutional ED: Denies chills or fever(s) Eyes Eyes: Denies change in vision or diplopia ENT ENT ED: Denies rhinorrhea or sore throat Cardiovascular Cardiovascular: Reports as per HPI, chest pain, leg edema and radiating jaw, neck or arm pain; Denies palpitations Respiratory/Chest Respiratory/Chest: Denies cough or dyspnea Gastrointestinal Gastrointestinal: Denies abdominal pain, diarrhea, nausea or vomiting Genitourinary Genitourinary ED: Denies dysuria or hematuria Musculoskeletal Musculoskeletal: Denies back pain or neck pain Integumentary Denies abscess or rash Neurologic Neurologic: Denies headache(s), paresthesias or weakness Psychiatric Psychiatric: Denies anxiety or suicidal thoughts EXAM Physical Exam Const Vital Signs: 06/28/25 15:32 06/28/25 16:12 06/28/25 16:21 Temperature 97.8 F Temperature Source Oral Pulse Rate 81 Respiratory Rate 16 Respiratory Pattern Normal Blood Pressure 181/90 H Blood Pressure Mean 120 Pulse Ox 94 94 Oxygen Delivery Method Room Air Room Air 06/28/25 16:32 06/28/25 17:00 06/28/25 17:28 Temperature Temperature Source Pulse Rate 80 72 80 Respiratory Rate 19 H 20 H Respiratory Pattern Blood Pressure 184/84 H 184/84 H 184/84 H Blood Pressure Mean 117 117 Pulse Ox Oxygen Delivery Method 06/28/25 18:00 06/28/25 19:27 06/28/25 20:10 Temperature Temperature Source Pulse Rate 77 90 80 Respiratory Rate 22 H 19 H 14 Respiratory Pattern Blood Pressure 171/75 H 166/89 H 203/103 H Blood Pressure Mean 107 114 136 Pulse Ox 96 97 94 Oxygen Delivery Method Room Air Room Air Room Air Positive well nourished and well developed General Appearance ED: well developed and NAD HEENT Reports moist mucous membranes normocephalic and atraumatic Eyes PERRL and EOMs intact bilaterally Neck full ROM and supple Resp normal respiratory effort and clear to auscultation bilaterally Cardio regular rate, regular rhythm and no murmurs Peripheral Pulses: pulses 2+ throughout GI non-tender and non-distended Auscultation: normoactive bowel sounds Palpation: soft Back/Spine no CVA tenderness General Back: other FROM Extremity normal to inspection General Extremety ED: Yes edema; Negative for pulses abnormal or tenderness General Extremity: edema bilateral lower extremity Details: moderate (Without signs of cellulitis or tenderness or palpable cords); Negative for pulses abnormal Neuro oriented x3, CN's II-XII intact bilaterally and no sensory deficits noted Sensorium / Orientation: awake and alert Motor Exam: strength 5/5 throughout Psych mental status grossly normal Skin no rashes or lesions noted and no wounds Heart Score History: Highly Suspicious ECG: Normal Age: >/= 65 years Risk Factors: >/= 3 Risk Factors or History of CAD Score: 6 MDM MDM MDM Narrative Medical decision making narrative: I offered the patient a GI cocktail, however she states she already tried that acouple times at any other ER visits and he did not help at all so she was not given that instead we gave her nitroglycerin which also did not help. She stillhas chest burning. EKG does not appear to show acute injury, her initial troponin is 30 in context of normal renal function, I discussed with cardiology Dr. Bean who agrees given the information that we have would be reasonable to admit her for stress test if her troponin is not going up. If it is, they wouldbe more likely to repeat her heart catheterization but the mild in-stent stenosis that was seen in her RCA stent 7 years ago is more likely to be stable given that her stent appears to be placed in 2012 along with an LAD stent. The second troponin is 32, essentially unchanged. Patient is doing much better after morphine. Discussed with hospitalist for inpatient observation and stresstesting. History & Record Review Additional record(s) reviewed:: Prior outpatient record (Sent from cardiology including heart cath 2017 RCA with mild in-stent stenosis and mild diffuse disease after abnormal stress test; last stress 2019 negative) Lab Data Attestation: I reviewed the patient's lab results. Labs: Laboratory Results - last 24 hr 06/28/25 06/28/25 17:21 19:24 WBC 4.1 L RBC 4.29 Hgb 12.6 Hct 39.5 MCV 92.1 MCH 29.4 MCHC 31.9 L RDW Std Deviation 50.8 H RDW Coeff of Daphnie 15.0 H Plt Count 137 L MPV 11.1 Immature Gran % (Auto) 0.200 Neut % (Auto) 61.4 Lymph % (Auto) 26.7 [place] % (Auto) 9.0 Eos % (Auto) 1.2 Baso % (Auto) 1.5 H Absolute Neuts (auto) 2.5 Absolute Lymphs (auto) 1.09 Nucleated RBC % 0 PT 16.6 H INR 1.3 Sodium 141 Potassium 3.5 Chloride 104 Carbon Dioxide 27.2 Anion Gap 11 BUN 16 Creatinine 0.98 Estim Creat Clear Calc 37.52 L Est GFR (MDRD) Non-Af 57 L BUN/Creatinine Ratio 16.7 Glucose 119 H Calcium 9.3 Troponin T High Sens 30 H Troponin T Hi Sens 2 Hr 32 H Radiography Diagnostic Testing: Clinical Impression(s) from Imaging Studies Chest X-Ray 06/28/25 17:20 IMPRESSION: Mild pulmonary vascular congestion and interstitial edema. No focal consolidation. Mild cardiomegaly, stable. 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 Call [facility] ([phone]) or report to the closest Emergency Room. Call 911 if necessary. 06/28/252038 <Electronically signed by Camden Hernandez MD> Cosigner Signature (if applicable): CC: No Primary Care Physician ~ Signed [facility] Work Phone: [phone] Progress [facility] [address] [place] [address] OFFICE VISIT Date of Service: 06/24/25 MR#: [id number] Acct: [id number] Name: KIMBERLY LEE Rep #: [id number] : 1940 Provider: LAURA Malik Age/Sex: 85/F Location: [facility] Status: Signed HPI HPI History of Present Illness Details: Kimberly Lee in an 85-year-old female that presents here today for a cardiovascular follow-up. She has a history of coronary artery disease with stenting to her LAD and distal RCA in 2012. She underwent a heart catheterization in June 2018 which demonstrated normal left main coronary, LAD previously stented, diagonal vessel with ostial 30 to 40% stenosis circumflex nondominant with no significant stenosis, diffusely diseased RCA. Medical therapy was recommended. Last month, pt was in to seeher PCP for a cough. She was noted to be in Afib and was sent the [facility] ER. She spent a few days there, she was started on Eliquis. I do not have these records. She tells me she is seeing a hypertension and kidney specialist in [facility]. He adjusted her medications and she has since had swelling. Pt was in the ER 06/22/25 at [facility] ER, was noted to have GERD. She underwent an EGD done on 06/13, thiswas normal. She notes that the discomfort has gotten better as the day has gone on today. She does have swelling in her legs. She ambulates with a cane. Intake Vital Signs 04/22/25 07:28 06/24/25 08:08 Height 5 ft 1 in 5 ft 1 in Weight: 139 lb 135 lb BMI 26.2 25.4 BP 148/76 H 170/79 H Blood Pressure Location Lt brachial Rt brachial Position Sitting Sitting Respiration 18 18 Pulse 67 87 Pulse Source Monitor Monitor Pulse Oximetry (%) 96 95 Intake Visit Reasons: S/P POMERENE 06/22 Claims Specialist Required: No Is patient in pain?: No Allergies pantoprazole Allergy (Verified 06/24/25 14:06) Rash hydrocodone bitartrate (From Vicodin) Adverse Reaction (Verified 06/24/25 14:06) Other metronidazole Adverse Reaction (Verified 06/24/25 14:06) nausea Medications ?Medication ?Instructions ?Recorded ?Confirmed ?Type aspirin 81 mg tablet,delayed 81 mg PO DAILY@0800 12/2706/24/25 History release atorvastatin 40 mg tablet 40 mg PO QHS 12/27/13 History isosorbide mononitrate 60 mg 60 mg PO DAILY #90 tabs 1 06/24/25 Rx tablet,extended release 24 hr olopatadine 0.2 % eye drops 1 drp ophthalmic (eye) WILLIE LY 08/29/20 04/22/25 History (Pataday) metoprolol succinate 50 mg 25 mg PO BID 08/21/2106/24 History tablet,extended release 24 hr melatonin 5 mg capsule 5 mg PO QHS PRN Sleep 06/24/25 History propylene glycol 0.6 % eye drops 1 drp ophthalmic (eye ) DAILY PRN 09/03/22 06/24/25 History (Systane Balance) Dry Eyes ondansetron 4 mg disintegrating 4 mg PO Q8H PRN PRN Na usea #14 tabs 01/07/23 06/24/25 Rx tablet omeprazole 40 mg capsule,delayed 40 mg PO DAILY #30 ca ps 02/21/23 06/24/25 Rx release buspirone 5 mg tablet 5 mg PO BID 09/02/23 5 History cholecalciferol (vitamin D3) 125 125 mcg PO DAILY 05/1806/24/25 History mcg (5,000 unit) capsule apixaban 5 mg tablet (Eliquis) 5 mg PO BID 04/22/25 History cetirizine 10 mg tablet (All Day 10 mg PO QDAY PRN 06/24/25 History Allergy (cetirizine)) clonidine HCl 0.1 mg tablet 0.1 mg PO BID PRN 04/22/25 06/24/25 History furosemide 20 mg tablet 40 mg PO DAILY 04/22/2505/28 History lisinopril 40 mg tablet 20 mg PO DAILY 04/22/2505/28 History magnesium 200 mg tablet 400 mg PO QDAY 06/24/2505/28 History nitroglycerin 0.4 mg sublingual 0.4 mg sublingual Q5-1 5M PRN chest 06/24/25 06/24/25 Rx tablet pain #25 tabs sucralfate 100 mg/mL oral 10 ml PO .qid 06/24/2506/24 History suspension (Carafate) Ejection fraction %: 65 Have you fallen in the past year?: No PFSH Medical History (Updated 04/22/25 @ 10:31 by Savana Goldsmith PA, PA) PAF (paroxysmal atrial fibrillation) Kidney stones Unstable angina Bilateral carotid artery stenosis GERD (gastroesophageal reflux disease) Essential (primary) hypertension Dysphagia Celiac artery stenosis Acute right hip pain LVH (left ventricular hypertrophy) Renal cysts, acquired, bilateral History of Helicobacter pylori infection Osteoarthritis History of bacterial pneumonia Hemorrhoids Diverticulosis Secondary pulmonary arterial hypertension NSTEMI (non-ST elevated myocardial infarction) Carotid bruit HLD (hyperlipidemia) Atherosclerotic heart disease of [place] coronary artery without angina pectoris Surgical History Hx of cataract extraction History of esophagogastroduodenoscopy (EGD) History of left heart catheterization (06/2018) History of bladder surgery historybladder surgery History of hysterectomy History of tubal ligation History of laparoscopic appendectomy History of laparoscopic cholecystectomy History of excision of pilonidal cyst History of coronary artery stent placement (12/07/12) Family History Father Cancer Social History Smoking Status: Former smoker alcohol intake: never substance use type: does not use caffeine: Yes what type of physical activity do you participate in: none frequency: does not exercise seatbelt use: always ROS Const Const: Positive for fatigue; Negative for weakness, headache(s) or frequent falls Eyes Eyes: Negative for blurry vision ENT ENT: Negative for headache(s), dizziness or Nosebleed/epistaxis Cardio Chest Pain: No Palpitations: No Edema: Bilateral and None Muscle aches with walking: None Resp Respiratory: Negative for SOB with activity, SOB at rest or SOB orthopnea\\SOB lying down GI GI: Positive for heartburn; Negative nausea, vomiting, bright, red blood in stools or black,tarry stools : Negative for hematuria Neuro Neuro: Negative for dizziness, lightheadedness, near syncope, syncope, frequent falls, headache(s),weakness or blurry vision Endo Endo: Positive for fatigue Cardiology Exam Const Appearance: cooperative, healthy appearing, comfortable, no acute distress and well developed Orientation: alert, awake and oriented x3 in WC Head Head: normal to inspection Ears: hearing grossly normal bilaterally Nose: external nose normal Face and Sinus: face symmetric Mouth: oral mucosae normal, lip normal and moist mucous membranes Eyes General: appearance normal, both eyes and all related structures Eyelids: eyelids normal Conjunctivae: conjunctivae normal Pupils: PERRL EOM: EOM intact bilaterally Neck Neck: normal visual inspection and trachea midline; Negative no JVD Carotids: bruit Left (faint) Chest Chest inspection: normal inspection of the chest Auscultation: Bilateral: Clear to Auscultation Cardio Palpation: normal PMI Rate: regular rate Rhythm: regular rhythm Heart sounds: S1 normal and S2 normal; Negative rub, gallop or murmur GI GI: soft, no hepatosplenomegaly and bowel sounds present Neuro General: patient alert, patient awake, patient oriented x3 and CN's II-XI intactbilaterally Extremities Pulses: Normal: Right Posterior Tibial Pulse, Left Posterior Tibial Pulse, RightRadial Pulse and Left Radial Pulse Lower Extremity Edema: +1: Bilateral Psych Psychological: normal affect Supplemental Info Supplemental Information ECHOCARDIOGRAM 10/10/2020 Interpretation Summary Left ventricular systolic function is normal. The estimated ejection fraction is 65 %. The left atrium is mildly enlarged. Mild (1+) mitral valve insufficiency. Moderate (2+) tricuspid valve insufficiency. Right ventricular systolic pressure estimated to be 49 mmHg. There is evidence of diastolic dysfunction. Pharmacologic myocardial perfusion stress test 08/28/2020: Conclusion: Normal pharmacologic myocardial perfusion stress test. Preserved ejection fraction. Cardiac Catheterization 07/13/18 CONCLUSIONS Mild in-stent stenosis of the proximal right coronary artery stent with mild diffuse disease noted. CORONARY ANGIOGRAPHY DOMINANCE: Right Dominant LEFT HEART ASSESSMENT Left Ventricular Ejection Fraction: by LV Gram 65 % Normal Left Ventricular systolic function LEFT MAIN: Angiographically normal LEFT ANTERIOR DECENDING ARTERY: MID LAD: Previously placed stent is patent DIAGONAL 1: Ostial - 60 % Stenosis CIRCUMFLEX ARTERY: Mild luminal irregularities RIGHT CORONARY ARTERY: PROX RCA: Previously placed stent has an instent 30 % restenosis RT PDA: Ostial - 70 % Stenosis Carotid Duplex 10/31/23 Interpretation Summary Irregular plaque with shadowing at the proximal right internal carotid artery with 50 to 69% stenosis Less than 50% stenosis right external carotid artery Smooth plaque noted within the left internal carotid artery and tortuosity notedwith less than 50% stenosis in the proximal internal carotid artery. Velocities slightly elevated within the distal left internal carotid artery without focal plaque in that area. Occlusion left external carotid artery Patent antegrade vertebral arteries bilaterally No change from the right carotid system from September 30, 2022 with new occlusionof the left external carotid artery from that previously when retrograde flow had been identified. CAROTID ULTRASOUND 11/29/2020 Interpretation Summary Irregular calcific plaque with shadowing at the proximal right internal and external carotid arteries Less than 50% stenosis right internal carotid artery Less than 50% stenosis right external carotid artery Minimal heterogenous irregular plaque at the proximal left internal carotid artery with significanttortuosity of the internal carotid artery noted. 50 to 69% stenosis left internal carotid artery No flow detected in the left external carotid artery consistent with occlusion Patent and antegrade vertebrals bilaterally Renal Artery Duplex 11/19/22 Interpretation Summary Maximal aortic diameter 1.4 cm Greater than 70% stenosis celiac artery Less than 60% stenosis right renal artery Right renal length 9.5 cm Less than 60% stenosis left renal artery Left renal length 10.5 cm Abnormal renal resistive indices bilaterally suggestive intrinsic renal parenchymal disease Labs: No Data to Display Diagnostics: Electrocardiogram Chest X-Ray Abdomen/Pelvis CT Carotid Duplex Pulmonary: No Data to Display Past Visits: Cardiology Visit 06/24/25 Assessment and Plan Assessment and Plan (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 transplanted heart: [place] heart Qualified Code(s): I25.10 - Atherosclerotic heart disease of [place] coronary artery without angina pectoris Plan: She does have atypical CP. ER workup and GI workup was negative. Advised we pursue a stress test. Pt is not sure she can do this d/t needing a show horse driver. Informed I will order one to assure that this isnot cardiac. She will continuewith her ASA, atorvastatin, diltiazem, isosorbide, lisinopril, metopro lol. (2) Essential (primary) hypertension: Status: Chronic Plan: BP is being managed by a nephrology/HTN specialist. [facility] [place] [facility] does [facility] him [facility]. Hesistent to make any changes since he is involved. Shewas advised to follow his instructions. (3) Secondary pulmonary arterial hypertension: Status: Chronic Plan: Stable, will continue to monitor with echos. She will continue with her diuretics. (4) HLD (hyperlipidemia): Status: Chronic Qualifiers: Hyperlipidemia type: pure hypercholesterolemia Qualified Code(s): E78.00 - Pure hypercholesterolemia, unspecified Plan: Managed by PCP, will continue with moderate intensity statin (5) Bilateral carotid artery stenosis: Status: Chronic Plan: Pt does follow with Dr. Harris. She will continue with medical management (6) PAF (paroxysmal atrial fibrillation): Status: Acute Plan: This is newer finding. Will continue with her eliquis and metoprolol. Will obtain MR for OSH. (7) Chest pain: Status: Inactive Plan: see #1 Orders: Orders Nuclear Stress Test - Chemical Today R07.9 - Chest pain, unspecified Medications: Refilled nitroglycerin until response; do not exceed 3 doses per episode 0.4 mg sublingual Q5-15M PRN 25 tabs 3RF chest pain Plan Details Follow Up: 6 Months (MMM- cancel appt next month) 1 Year (SNACK STEWARDESS) Coding Level of Care Code Off vis,est,level 4 Diagnoses Atherosclerosis of [place] coronary artery of [place] heart without angina pectoris I25.10 Andre[place]ski vs. transplanted heart: [place] heart Essential (primary) hypertension I10 Secondary pulmonary arterial hypertension I27.21 Pure hypercholesterolemia E78.00 Hyperlipidemia type: pure hypercholesterolemia Bilateral carotid artery stenosis I65.23 PAF (paroxysmal atrial fibrillation) I48.0 Chest pain R07.9 Coding Level of Care Code Off vis,est,level 4 Diagnoses Atherosclerosis of [place] coronary artery of [place] heart without angina pectoris I25.10 Andre[place]ski vs. transplanted heart: [place] heart Essential (primary) hypertension I10 Secondary pulmonary arterial hypertension I27.21 Pure hypercholesterolemia E78.00 Hyperlipidemia type: pure hypercholesterolemia Bilateral carotid artery stenosis I65.23 PAF (paroxysmal atrial fibrillation) I48.0 Chest pain R07.9 Clinical Quality Measures Falls Risk Screening/Assistive Devices Have you fallen in the past year?: No Cardiac Ejection fraction %: 65 06/24/25 [id number] Connie SANCHEZ> Date _ Savana SANCHEZ Cosigner Signature: Date (if applicable) CC: ~ [facility]08-29-2025 Progress note Author Savana Goldsmith [facility] Services Note Date/Time June 24, 2025 2: 44pm [facility] [address] [place] [address] OFFICE VISIT Date of Service: 06/24/25 MR#: [id number] Acct: [id number] Name: KIMBERLY LEE Rep #: [id number] : 1940 Provider: LAURA Malik Age/Sex: 85/F Location: [facility] [place] Status: Signed HPI HPI History of Present Illness Details: Kimberly Lee in an 85-year-old female that presents here today for a cardiovascular follow-up. She has a history of coronary artery disease with stenting to her LAD and distal RCA in 2012. She underwent a heart catheterization in June 2018 which demonstrated normal left main coronary, LAD previously stented, diagonal vessel with ostial 30 to 40% stenosis circumflex nondominant with no significant stenosis, diffusely diseased RCA. Medical therapy was recommended. Last month, pt was in to see her PCP for a cough. She was noted to be in Afib and was sent the [facility] ER. She spent a few days there, she was started on Eliquis. I do not have these records. She tells me she is seeing a hypertension and kidney specialist in [facility]. He adjusted her medications and she has since had swelling. Pt was in the ER 06/22/25 at [facility], was noted to have GERD. She underwent an EGD done on 06/13, this was normal. She notes that the discomfort has gotten better as the day has gone on today. She does have swelling in her legs. She ambulates with a cane. Intake Vital Signs 04/22/25 07:06/24/25 08:08 Height 5 ft 1 in 5 ft 1 in Weight: 139 lb 135 lb BMI 26.2 25.4 BP 148/76 H 170/79 H Blood Pressure Location Lt brachial Rt brachial Position Sitting Sitting Respiration 18 18 Pulse 67 87 Pulse Source Monitor Monitor Pulse Oximetry (%) 96 95 Intake Visit Reasons: S/P FLACOEREDILEEP 06/22 Claims Specialist Required: No Is patient in pain?: No Allergies pantoprazole Allergy (Verified 06/24/25 14:06) Rash hydrocodone bitartrate (From Vicodin) Adverse Reaction (Verified 06/24/25 14:06) Other metronidazole Adverse Reaction (Verified 06/24/25 14:06) nausea Medications ?Medication ?Instructions ?Recorded ?Confirmed ?Type aspirin 81 mg tablet,delayed 81 mg PO DAILY@0800 12/2706/24/25 History release atorvastatin 40 mg tablet 40 mg PO QHS 12/27/13 History isosorbide mononitrate 60 mg 60 mg PO DAILY #90 tabs 1 06/24/25 Rx tablet,extended release 24 hr olopatadine 0.2 % eye drops 1 drp ophthalmic (eye) WILLIE LY 08/29/20 04/22/25 History (Pataday) metoprolol succinate 50 mg 25 mg PO BID 08/21/2106/24 History tablet,extended release 24 hr melatonin 5 mg capsule 5 mg PO QHS PRN Sleep 06/24/25 History propylene glycol 0.6 % eye drops 1 drp ophthalmic (eye ) DAILY PRN 09/03/22 06/24/25 History (Systane Balance) Dry Eyes ondansetron 4 mg disintegrating 4 mg PO Q8H PRN PRN Na usea #14 tabs 01/07/23 06/24/25 Rx tablet omeprazole 40 mg capsule,delayed 40 mg PO DAILY #30 ca ps 02/21/23 06/24/25 Rx release buspirone 5 mg tablet 5 mg PO BID 09/02/23 5 History cholecalciferol (vitamin D3) 125 125 mcg PO DAILY 05/1806/24/25 History mcg (5,000 unit) capsule apixaban 5 mg tablet (Eliquis) 5 mg PO BID 04/22/25 History cetirizine 10 mg tablet (All Day 10 mg PO QDAY PRN 06/24/25 History Allergy (cetirizine)) clonidine HCl 0.1 mg tablet 0.1 mg PO BID PRN 04/22/25 06/24/25 History furosemide 20 mg tablet 40 mg PO DAILY 04/22/2505/28 History lisinopril 40 mg tablet 20 mg PO DAILY 04/22/2505/28 History magnesium 200 mg tablet 400 mg PO QDAY 06/24/2505/28 History nitroglycerin 0.4 mg sublingual 0.4 mg sublingual Q5-1 5M PRN chest 06/24/25 06/24/25 Rx tablet pain #25 tabs sucralfate 100 mg/mL oral 10 ml PO .qid 06/24/2506/24 History suspension (Carafate) Ejection fraction %: 65 Have you fallen in the past year?: No PFSH Medical History (Updated 04/22/25 @ 10:31 by Savana SANCHEZ, PA) PAF (paroxysmal atrial fibrillation) Kidney stones Unstable angina Bilateral carotid artery stenosis GERD (gastroesophageal reflux disease) Essential (primary) hypertension Dysphagia Celiac artery stenosis Acute right hip pain LVH (left ventricular hypertrophy) Renal cysts, acquired, bilateral History of Helicobacter pylori infection Osteoarthritis History of bacterial pneumonia Hemorrhoids Diverticulosis Secondary pulmonary arterial hypertension NSTEMI (non-ST elevated myocardial infarction) Carotid bruit HLD (hyperlipidemia) Atherosclerotic heart disease of [place] coronary artery without angina pectoris Surgical History Hx of cataract extraction History of esophagogastroduodenoscopy (EGD) History of left heart catheterization (06/2018) History of bladder surgery historybladder surgery History of hysterectomy History of tubal ligation History of laparoscopic appendectomy History of laparoscopic cholecystectomy History of excision of pilonidal cyst History of coronary artery stent placement (12/07/12) Family History Father Cancer Social History Smoking Status: Former smoker alcohol intake: never substance use type: does not use caffeine: Yes what type of physical activity do you participate in: none frequency: does not exercise seatbelt use: always ROS Const Const: Positive for fatigue; Negative for weakness, headache(s) or frequent falls Eyes Eyes: Negative for blurry vision ENT ENT: Negative for headache(s), dizziness or Nosebleed/epistaxis Cardio Chest Pain: No Palpitations: No Edema: Bilateral and None Muscle aches with walking: None Resp Respiratory: Negative for SOB with activity, SOB at rest or SOB orthopnea\\SOB lying down GI GI: Positive for heartburn; Negative nausea, vomiting, bright, red blood in stools or black,tarry stools : Negative for hematuria Neuro Neuro: Negative for dizziness, lightheadedness, near syncope, syncope, frequent falls, headache(s), weakness or blurry vision Endo Endo: Positive for fatigue Cardiology Exam Const Appearance: cooperative, healthy appearing, comfortable, no acute distress and well developed Orientation: alert, awake and oriented x3 in WC Head Head: normal to inspection Ears: hearing grossly normal bilaterally Nose: external nose normal Face and Sinus: face symmetric Mouth: oral mucosae normal, lip normal and moist mucous membranes Eyes General: appearance normal, both eyes and all related structures Eyelids: eyelids normal Conjunctivae: conjunctivae normal Pupils: PERRL EOM: EOM intact bilaterally Neck Neck: normal visual inspection and trachea midline; Negative no JVD Carotids: bruit Left (faint) Chest Chest inspection: normal inspection of the chest Auscultation: Bilateral: Clear to Auscultation Cardio Palpation: normal PMI Rate: regular rate Rhythm: regular rhythm Heart sounds: S1 normal and S2 normal; Negative rub, gallop or murmur GI GI: soft, no hepatosplenomegaly and bowel sounds present Neuro General: patient alert, patient awake, patient oriented x3 and CN's II-XI intactbilaterally Extremities Pulses: Normal: Right Posterior Tibial Pulse, Left Posterior Tibial Pulse, RightRadial Pulse and Left Radial Pulse Lower Extremity Edema: +1: Bilateral Psych Psychological: normal affect Supplemental Info Supplemental Information ECHOCARDIOGRAM 10/10/2020 Interpretation Summary Left ventricular systolic function is normal. The estimated ejection fraction is 65 %. The left atrium is mildly enlarged. Mild (1+) mitral valve insufficiency. Moderate (2+) tricuspid valve insufficiency. Right ventricular systolic pressure estimated to be 49 mmHg. There is evidence of diastolic dysfunction. Pharmacologic myocardial perfusion stress test 08/28/2020: Conclusion: Normal pharmacologic myocardial perfusion stress test. Preserved ejection fraction. Cardiac Catheterization 07/13/18 CONCLUSIONS Mild in-stent stenosis of the proximal right coronary artery stent with mild diffuse disease noted. CORONARY ANGIOGRAPHY DOMINANCE: Right Dominant LEFT HEART ASSESSMENT Left Ventricular Ejection Fraction: by LV Gram 65 % Normal Left Ventricular systolic function LEFT MAIN: Angiographically normal LEFT ANTERIOR DECENDING ARTERY: MID LAD: Previously placed stent is patent DIAGONAL 1: Ostial - 60 % Stenosis CIRCUMFLEX ARTERY: Mild luminal irregularities RIGHT CORONARY ARTERY: PROX RCA: Previously placed stent has an instent 30 % restenosis RT PDA: Ostial - 70 % Stenosis Carotid Duplex 10/31/23 Interpretation Summary Irregular plaque with shadowing at the proximal right internal carotid artery with 50 to 69% stenosis Less than 50% stenosis right external carotid artery Smooth plaque noted within the left internal carotid artery and tortuosity notedwith less than 50% stenosis in the proximal internal carotid artery. Velocities slightly elevated within the distal left internal carotid artery without focal plaque in that area. Occlusion left external carotid artery Patent antegrade vertebral arteries bilaterally No change from the right carotid system from September 30, 2022 with new occlusionof the left external carotid artery from that previously when retrograde flow had been identified. CAROTID ULTRASOUND 11/29/2020 Interpretation Summary Irregular calcific plaque with shadowing at the proximal right internal and external carotid arteries Less than 50% stenosis right internal carotid artery Less than 50% stenosis right external carotid artery Minimal heterogenous irregular plaque at the proximal left internal carotid artery with significant tortuosity of the internal carotid artery noted. 50 to 69% stenosis left internal carotid artery No flow detected in the left external carotid artery consistent with occlusion Patent and antegrade vertebrals bilaterally Renal Artery Duplex 11/19/22 Interpretation Summary Maximal aortic diameter 1.4 cm Greater than 70% stenosis celiac artery Less than 60% stenosis right renal artery Right renal length 9.5 cm Less than 60% stenosis left renal artery Left renal length 10.5 cm Abnormal renal resistive indices bilaterally suggestive intrinsic renal parenchymal disease Labs: No Data to Display Diagnostics: Electrocardiogram Chest X-Ray Abdomen/Pelvis CT Carotid Duplex Pulmonary: No Data to Display Past Visits: Cardiology Visit 06/24/25 Assessment and Plan Assessment and Plan (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 transplanted heart: [place] heart Qualified Code(s): I25.10 -Atherosclerotic heart disease of [place] coronary artery without angina pectoris Plan: She does have atypical CP. ER workup and GI workup was negative. Advised we pursue a stress test. Pt is not sure she can do this d/t needing a show horse driver. Informed I will order one to assure that this is not cardiac. She will continuewith her ASA, atorvastatin, diltiazem, isosorbide, lisinopril, metoprolol. (2) Essential (primary) hypertension: Status: Chronic Plan: BP is being managed by a nephrology/HTN specialist. He works in [place] once a week, he is from the [facility]. She does see him routinely. Hesistent to make any changes since he is involved. She was advised to follow his instructions. (3) Secondary pulmonary arterial hypertension: Status: Chronic Plan: Stable, will continue to monitor with echos. She will continue with her diuretics. (4) HLD (hyperlipidemia): Status: Chronic Qualifiers: Hyperlipidemia type: pure hypercholesterolemia Qualified Code(s): E78.00 - Pure hypercholesterolemia, unspecified Plan: Managed by PCP, will continue with moderate intensity statin (5) Bilateral carotid artery stenosis: Status: Chronic Plan: Pt does follow with Dr. Harris. She will continue with medical management (6) PAF (paroxysmal atrial fibrillation): Status: Acute Plan: This is newer finding. Will continue with her eliquis and metoprolol. Will obtain MR for OSH. (7) Chest pain: Status: Inactive Plan: see #1 Orders: Orders Nuclear Stress Test - Chemical Today R07.9 - Chest pain, unspecified Medications: Refilled nitroglycerin until response; do not exceed 3 doses per episode 0.4 mg sublingual Q5-15M PRN 25 tabs 3RF chest pain Plan Details Follow Up: 6 Months (MMM- cancel appt next month) 1 Year (SNACK STEWARDESS) Coding Level of Care Code Off vis,est,level 4 Diagnoses Atherosclerosis of [place] coronary artery of [place] heart without angina pectoris I25.10 Andreafski vs. transplanted heart: [place] heart Essential (primary) hypertension I10 Secondary pulmonary arterial hypertension I27.21 Pure hypercholesterolemia E78.00 Hyperlipidemia type: pure hypercholesterolemia Bilateral carotid artery stenosis I65.23 PAF (paroxysmal atrial fibrillation) I48.0 Chest pain R07.9 Coding Level of Care Code Off vis,est,level 4 Diagnoses Atherosclerosis of [place] coronary artery of [place] heart without angina pectoris I25.10 Andreafski vs. transplanted heart: [place] heart Essential (primary) hypertension I10 Secondary pulmonary arterial hypertension I27.21 Pure hypercholesterolemia E78.00 Hyperlipidemia type: pure hypercholesterolemia Bilateral carotid artery stenosis I65.23 PAF (paroxysmal atrial fibrillation) I48.0 Chest pain R07.9 Clinical Quality Measures Falls Risk Screening/Assistive Devices Have you fallen in the past year?: No Cardiac Ejection fraction %: 65 06/24/25 1444 <Electronically signed by Savana Shaw> Date _ Savana SANCHEZ Cosigner Signature: Date (if applicable) CC: ~ [facility] Work Phone: 1(123) 662-823608-28-2025 Note. MICRO - Microbiology PROCEDURE: Blood Culture (bacterial) [*1] SOURCE: Blood BODY SITE: COLLECTED DATE/TIME: 06/22/2025 15:10 EDT RECEIVED DATE/TIME: 06/23/2025 15:11 EDT START DATE/TIME: 06/23/2025 15:12 EDT FREE TEXT SOURCE: PRELIMINARY REPORTS Preliminary Report [] Verified Date/Time/Personnel: 06/23/2025 15:59 EDT Culture has been received in lab and is no growth to date. Routine cultures are held for 5 days. Performing Locations *1: This test was performed at: [facility], [address] [place] [address], [facility] , [facility] [id number] Note. MICRO - Microbiology PROCEDURE: Blood Culture (bacterial) [*1] SOURCE: Blood BODY SITE: COLLECTED DATE/TIME: 06/11/2025 20:30 EDT RECEIVED DATE/TIME: 06/12/2025 16:33 EDT START DATE/TIME: 06/12/2025 16:34 EDT FREE TEXT SOURCE: FINAL REPORTS Final Report [] Verified Date/Time/Personnel: 06/17/2025 17:00 EDT Blood Culture: No Growth at 5 days. PRELIMINARY REPORTS Preliminary Report [] Verified Date/Time/Personnel: 06/12/2025 17:59 EDT Culture has been received in lab and is no growth to date. Routine cultures are held for 5 days. Performing Locations *1: This test was performed at: [address], [facility] , [facility] [id number] Note. MICRO - Microbiology PROCEDURE: Blood Culture (bacterial) [*1] SOURCE: Blood BODY SITE: Anticubital, Right COLLECTED DATE/TIME: 06/11/2025 20:38 EDT RECEIVED DATE/TIME: 06/12/2025 16:33 EDT START DATE/TIME: 06/12/2025 16:34 EDT FREE TEXT SOURCE: FINAL REPORTS Final Report [] Verified Date/Time/Personnel: 06/17/2025 17:00 EDT Blood Culture: No Growth at 5 days. PRELIMINARY REPORTS Preliminary Report [] Verified Date/Time/Personnel: 06/12/2025 17:59 EDT Culture has been received in lab and is no growth to date. Routine cultures are held for 5 days. Performing Locations *1: This test was performed at: [address], [facility] , [facility] [id number] Evaluation note* Diagnosis Onset Date Resolution Status Admit Date PAF (paroxysmal atrial fibrillation) acute April 22, 2025 10:17am Atherosclerotic heart diseas e of [place] coronary artery without angina pectoris chronic April 22, 2025 10:17am Bilateral carotid artery stenosis chronic April 22, 2025 10:17am Essential (primary) hypertension chr onic April 22, 2025 10:17am HLD (hyperlipidemia) chronic April 22, 2025 10:17am Secondary pulmonary arterial hypertension chronic April 22, 2025 10:17am PAF (paroxysmal atrial fibrillation) acute June 24 1:43pm Atherosclerotic heart diseas e of [place] coronary artery without angina pectoris chronic June 24 1:43pm Bilateral carotid artery stenosis chronic June 24 1:43pm Essential (primary) hypertension chr onic June 24, 2025 1:43pm HLD (hyperlipidemia) chronic 2024 1:43pm Secondary pulmonary arterial hypertension chronic June 24 1:43pm Chest pain inactive June 24, 025 1:43pm [facility] Work Phone: 1(605) 333-474006-27-2025 Evaluation note* Diagnosis Onset Date Resolution Status Admit Date PAF (paroxysmal atrial fibrillation) acute April 22, 2025 10:17am Atherosclerotic heart diseas e of [place] coronary artery without angina pectoris chronic March 10:17am Bilateral carotid artery stenosis chronic April 22, 2025 10:17am Essential (primary) hypertension chronic April 22, 2025 10:17am HLD (hyperlipidemia) chronic April 22, 2025 10:17am Secondary pulmonary arterial hypertension chronic April 22, 2025 10:17am PAF (paroxysmal atrial fibrillation) acute June 24 1:43pm Atherosclerotic heart diseas e of [place] coronary artery without angina pectoris chronic May 282024 1:43pm Bilateral carotid artery stenosis chronic June 24 1:43pm Essential (primary) hypertension chronic June 24 1:43pm HLD (hyperlipidemia) chronic 2024 1:43pm Secondary pulmonary arterial hypertension chronic June 24 1:43pm Chest pain inactive June 24, 2 025 1:43pm Chest pain acute June 28, 2025 8:36pm [facility] Work Phone: 1(941) 262-119206-01-2025 History and physical note Author Mary Gregory [facility] Note Date/Time June 28, 2025 8:56pm [facility] Medical Records Department [address] [place] [address] H&P Exam - Hospitalist 06/28/252033 MR#: [id number] Acct: [id number] Name: KIMBERLY LEE Rep #:[id number] : 1940 85 From: Mary Gregory MD PCP: Care Physician,No Primary Status :REG ER Location: ED HPI - General General Date of Admission: 06/28/25 Date of Service: 06/28/25 Chief Complaint: Chest pain. HPI Narrative The patient is an 85 y/o F w/ PMHx: Anxiety, CKD stage III unclear subtype per GFR trending, PAF, GERD, HTN, HLD, Former tobacco use, Secondary Pulm HTN, Renalartery stenosis/celiac artery stenosis/carotid disease, CAD s/p PCI LAD and distal RCA 2012 with most recent cardiac catheterization following 06/2018 with normal left main, LAD previously stented, diagonal vessel with ostial 30 to 40% stenosis, circumflex nondominant with no significant stenosis, diffusely diseased RCA with medical therapy recommended at that time with recent cardiology visit 06/24/2025 with ongoing episode of atypical chest pain with ER and GI workup outpatient noted to be unremarkable with plan stress testing who now presents again to the ED on 06/28/2025 with history of chest discomfort described as a burning with radiation to her jaw and both upper extremities ongoing for the last month with as noted previously outpatient ED evaluations and EGD which were unremarkable with usage of [id number] Mylanta as well as lidocaine GI cocktail with no improvement noted to be intermittent and nonexertional however recently she reports it has been more frequent not worsened by laying down nor any eating specific foods with stable unchanged lower extremity edema prompting reevaluation. She notes prior to ED interventions her chest discomfort was rated 10 out of 10 in severity and following morphine she notes it is now completely 0 out of 10. Workup in the EDincluded T97.8, heart rate 81, BP 181/90, respiratory rate 16, 94% on room air with most recent repeat vitals heart rate 80, BP 203/103, respiratory rate 14, 94% on room air, CBC with WC 4.1, hgb 12.6, platelet 137 without marked shift, coags with INR 1.3, PT 16.6, BMP with BUN/creatinine 16/0.98, GFR 57, glucose 119, initial troponin 30 with repeat delta 32, chest x-ray with mild cardiomegaly, mild pulmonary vascular congestion and interstitial edema, EKG with sinus rhythm with no acute evidence of ischemia. In the ED patient ministered morphine 4 mg IV x 1 as well as sublingual nitroglycerin. ED did discuss case with loader machine Dr. Bean who recommended cardiac stress testingand if this is abnormal to certainly consult them for cardiac catheterization and noted also if for some reason cardiac enzymes did rise significantly above the 100 to transition to heparin drip and also request cardiology evaluation. [facility] Medical History PAF (paroxysmal atrial fibrillation) Kidney stones Unstable angina Bilateral carotid artery stenosis GERD (gastroesophageal reflux disease) Essential (primary) hypertension Dysphagia Celiac artery stenosis Acute right hip pain LVH (left ventricular hypertrophy) Renal cysts, acquired, bilateral History of Helicobacter pylori infection Osteoarthritis History of bacterial pneumonia Hemorrhoids Diverticulosis Secondary pulmonary arterial hypertension NSTEMI (non-ST elevated myocardial infarction) Carotid bruit HLD (hyperlipidemia) Atherosclerotic heart disease of [place] coronary artery without angina pectoris Home Medications ?Medication ?Instructions ?Recorded ?Last Taken ?Type aspirin 81 mg tablet,delayed 81 mg PO DAILY@0800 12/2707/13/18 History release atorvastatin 40 mg tablet 40 mg PO QHS 12/27/13 Unknow n History isosorbide mononitrate 60 mg 60 mg PO DAILY #90 tabs 1 Unknown Rx tablet,extended release 24 hr olopatadine 0.2 % eye drops 1 drp ophthalmic (eye) WILLIE LY 08/29/20 Unknown History (Pataday) metoprolol succinate 50 mg 25 mg PO BID 08/21/21 Unkno wn History tablet,extended release 24 hr melatonin 5 mg capsule 5 mg PO QHS PRN Sleep Unknown History propylene glycol 0.6 % eye drops 1 drp ophthalmic (eye ) DAILY PRN 09/03/22 Unknown History (Systane Balance) Dry Eyes omeprazole 40 mg capsule,delayed 40 mg PO DAILY #30 ca ps 02/21/23 Unknown Rx release buspirone 5 mg tablet 5 mg PO BID 09/02/23 Unknown History cholecalciferol (vitamin D3) 125 125 mcg PO DAILY 05/18 Unknown History mcg (5,000 unit) capsule apixaban 5 mg tablet (Eliquis) 5 mg PO BID 04/22/25 Un known History cetirizine 10 mg tablet (All Day 10 mg PO QDAY PRN all ergy symptoms 04/22/25 Unknown History Allergy (cetirizine)) clonidine HCl 0.1 mg tablet 0.1 mg PO BID PRN blood pr essure 04/22/25 Unknown History furosemide 20 mg tablet 40 mg PO DAILY 04/22/25 Unkn own History lisinopril 40 mg tablet 30 mg PO DAILY 04/22/25 Unkn own History magnesium 200 mg tablet 400 mg PO BID 06/24/25 Unkno wn History nitroglycerin 0.4 mg sublingual 0.4 mg sublingual Q5-1 5M PRN chest 06/24/25 Unknown Rx tablet pain #25 tabs Allergy/AdvReac Type Severity Reaction Status Date / Time pantoprazole Allergy Rash Verified 06/28/25 15:36 hydrocodone bitartrate (From AdvReac Other Verified 06/28/25 15:36 Vicodin) metronidazole AdvReac nausea Verified 06/28/25 15:36 tramadol AdvReac Nausea Verified 06/28/25 15:36 Family History Father Cancer Mother , Unknown medical history, notes she was raised in a children's home. No problems noted. Surgical History Hx of cataract extraction History of esophagogastroduodenoscopy (EGD) History of left heart catheterization (06/2018) History of bladder surgery historybladder surgery History of hysterectomy History of tubal ligation History of laparoscopic appendectomy History of laparoscopic cholecystectomy History of excision of pilonidal cyst History of coronary artery stent placement (12/07/12) Social History household members: none Smoking Status: Former smoker alcohol intake: never substance use type: does not use caffeine: Yes what type of physical activity do you participate in: none frequency: does not exercise seatbelt use: always ROS ROS Narrative Admission Review of Systems: CONSTITUTIONAL: No weight loss, fever, chills, + weakness or fatigue. HEENT: + Jaw pain. Eyes: No visual loss, blurred vision, double vision or yellow sclerae. Ears, Nose, Throat: No hearing loss, sneezing, congestion, runny nose or sore throat. SKIN: No rash or itching, lesions, wounds. CARDIOVASCULAR: + Chest pain, jaw pain, upper extremity pain, chronic anemia. No palpitations, orthopnea, syncopal events. RESPIRATORY: No shortness of breath, cough or sputum, wheezing, hemoptysis. GASTROINTESTINAL: No anorexia, nausea, vomiting or diarrhea, abdominal pain, melena, BRBPR. GENITOURINARY: No dysuria, frequency, urgency or retention. NEUROLOGICAL: No headache, dizziness, syncope, paralysis, ataxia, numbness or tingling in the extremities, focal weakness, change in bowel or bladder control,seizure. MUSCULOSKELETAL: + muscle, back pain, joint pain or stiffness. HEMATOLOGIC: No anemia. + Easy bleeding/bruising. LYMPHATICS: No enlarged nodes. No history of splenectomy. PSYCHIATRIC: + History of anxiety. ENDOCRINOLOGIC: No reports of sweating, cold or heat intolerance. No polyuria orpolydipsia. ALLERGIES: + History allergic rhinitis. Vital Signs Vital Signs Vital Signs: 06/28/25 15:32 06/28/25 16:12 06/28/25 16:21 Temperature 97.8 F Temperature Source Oral Pulse Rate 81 Respiratory Rate 16 Respiratory Pattern Normal Blood Pressure 181/90 H Blood Pressure Mean 120 Pulse Ox 94 94 Oxygen Delivery Method Room Air Room Air 06/28/25 16:32 06/28/25 17:00 06/28/25 17:28 Temperature Temperature Source Pulse Rate 80 72 80 Respiratory Rate 19 H 20 H Respiratory Pattern Blood Pressure 184/84 H 184/84 H 184/84 H Blood Pressure Mean 117 117 Pulse Ox Oxygen Delivery Method 06/28/25 18:00 06/28/25 19:27 06/28/25 20:10 Temperature Temperature Source Pulse Rate 77 90 80 Respiratory Rate 22 H 19 H 14 Respiratory Pattern Blood Pressure 171/75 H 166/89 H 203/103 H Blood Pressure Mean 107 114 136 Pulse Ox 96 97 94 Oxygen Delivery Method Room Air Room Air Room Air Weight Weight: 143 lb 2 oz Body Mass Index (BMI) 27.0 Physical Exam Narrative Physical Examination: General: Awake, alert, oriented x 3 and cooperative, seated upright in the ED bed, notes chest pain currently completely resolved. Skin: Normal color, normal turgor, no icterus, no cyanosis except occasional stage ecchymoses, abrasion. HEENT: AT/NC, EOMI, PERRLA, MMM, no carotid bruits or JVD noted. Lungs: Mildly diminished, greater bases, appropriate effort, no rales, ronchi orwheezing. Heart: Regular rate and rhythm; no gallop, rub audible. On monitor note occasional frequent PVC. Abdomen: Soft, NTTP, ND, mildly hyperactive BS, no appreciated HSM. Extremities: No cyanosis, no clubbing, pedal to just distal to the knee 2-3+ pitting edema which she notes is chronic stable. Neurological: Patient awake, alert, oriented x 3, cognitive function intact; pupils equally reactive to light and accommodation, cranial nerves grossly normal, moving all 4 extremities, no focal deficits, strength moderately globally decreased. Psychiatric: Affect appears fatigued otherwise normal, no acute evidence of depressive or anxiety feelings but does have underlying history. Results Lab / Micro Data 06/28/25 17:21 06/28/25 17:21 Labs: Laboratory Results - last 24 hr 06/28/25 17:21: WBC 4.1 L, RBC 4.29, Hgb 12.6, Hct 39.5, MCV 92.1, MCH 29.4, MCHC 31.9 L, RDW Std Deviation 50.8 H, RDW Coeff of Daphnie 15.0 H, Plt Count 137 L, MPV 11.1, Immature Gran % (Auto) 0.200, Neut % (Auto) 61.4, Lymph % (Auto) 26.7,[place] % (Auto) 9.0, Eos % (Auto) 1.2, Baso % (Auto) 1.5 H, Absolute Neuts (auto) 2.5, Absolute Lymphs (auto) 1.09, Nucleated RBC % 0, PT 16.6 H, INR 1.3, Sodium 141, Potassium 3.5, Chloride 104, Carbon Dioxide 27.2, Anion Gap 11, BUN 16, Creatinine 0.98, Estim Creat Clear Calc 37.52 L, Est GFR (MDRD) Non-Af 57 L, BUN/Creatinine Ratio 16.7, Glucose 119 H, Calcium 9.3, Troponin T High Sens 30 H 06/28/25 19:24: Troponin T Hi Sens 2 Hr 32 H Rhythm Strip Rhythm Strip: Sinus Rhythm Rate: 80 Ectopy: PVC(s) (at times, frequent; groups of no more than 2) Imaging Radiology Impression Chest X-Ray 06/28/25 17:20 IMPRESSION: Mild pulmonary vascular congestion and interstitial edema. No focal consolidation. Mild cardiomegaly, stable. Reading Location: [facility] Assessment & Plan Assessment/Plan (1) Chest pain: PLAN: Plan The patient is an 85 y/o F w/ PMHx: Anxiety, CKD stage III unclear subtype per GFR trending, PAF, GERD, HTN, HLD, Former tobacco use, Secondary Pulm HTN, Renalartery stenosis/celiac artery stenosis/carotid disease, CAD s/p PCI LAD and distal RCA 2012 with most recent cardiac catheterization following 06/2018 with normal left main, LAD previously stented, diagonal vessel with ostial 30 to 40% stenosis, circumflex nondominant with no significant stenosis, diffusely diseased RCA with medical therapy recommended at that time with recent cardiology visit 06/24/2025 with ongoing episode of atypical chest pain with ER and GI workup outpatient noted to be unremarkable with plan stress testing who now presents again to the ED on 06/28/2025 with history of chest discomfort described as a burning with radiation to her jaw and both upper extremities ongoing for the last month with as noted previously outpatient ED evaluations and EGD which were unremarkable with usage of [id number] Mylanta as well as lidocaine GI cocktail with no improvement noted to be intermittent and nonexertional however recently she reports it has been more frequent not worsened by laying down nor any eating specific foods with stable unchanged lower extremity edema prompting reevaluation. #1. Chest Pain with indeterminant cardiac enzyme of unclear significance: EKG in ED with sinus rhythm with no acute evidence of ischemia, CXR w/ no acute cardiopulmonary findings with mild cardiomegaly, mild pulmonary vascular congestion/interstitial edema, initial trop 30 with repeat troponin 32. Will admit to PCU, place on a monitored bed to assure no acute myocardial infarction with serial cardiac enzymes and EKGs. BMP requested. Magnesium requested. FLPin AM. If repeat cardiac enzymes remain similar per recent plan per cardiology will pursue a.m. cardiac stress testing. Continue Eliquis, ASA, NG, morphine. #2. Hypertensive emergency: Given troponin elevation noted to be 30 with repeatdelta 32 in the setting of significantly elevated blood pressure with chest painnotable concern, will maintain on telemetry as noted above, continue to evaluateas noted #1, will continue metoprolol, lisinopril, isosorbide, Lasix, clonidine with alterations as needed, as needed IV hydralazine additionally. #3. CAD: Patient s/p PCI LAD and distal RCA 2012 with most recent cardiac catheterization following 06/2018 with normal left main, LAD previously stented, diagonal vessel with ostial 30 to 40% stenosis, circumflex nondominant with no significant stenosis, diffusely diseased RCA with medical therapy recommended atthat time, pending evaluation as noted above we will continue patient aspirin, Eliquis, statin, metoprolol, lisinopril. #4. PAF: Will continue patient home metoprolol and Eliquis regimen. #5. Hyperlipidemia: Continue home statin regimen. AM FLP. #6. Carotid disease, renal artery/celiac artery stenosis: Most recent noted carotid ultrasound 11/29/2020 with less than 50% stenosis right internal and external carotid artery, 50 to 69% stenosis left internal carotid artery and most recent renal artery duplex noted 11/19/2022 with greater than 70% stenosis iliac artery, less than 60% stenosis right renal artery, less than 60% stenosis left renal artery, encourage continued follow-up outpatient with further imaging/evaluation as previously arranged. #7. Chronic Kidney Disease Stage III, unclear subtype per GFR trending: Admission BUN/Cr 16/0.8, GFR 57, baseline renal function primarily 0.7-1.0 however recently had elevated creatinine with 06/23/2024 creatinine 1.31, has since improved, repeat BMP in AM. #8. Thrombocytopenia, acute on chronic: Admission platelets 137, has certainly vacillated however most recently normal range, 06/23/2024 platelets 184, continueto closely monitor. #9. Former tobacco use: Encouraged continued tobacco cessation. #10. Anxiety: Will continue patient home BuSpar regimen. #11. DVT prophylaxis: Continue home apixaban regimen. #12. CODE status: Patient ARIANNE unfortunately has since but she notes she intends to redo this and notes her son Prabhjot would be her medical decision-maker if necessary, she does have a living will in place but again it is older she notes. Discussed CODE status at length including difference between FULL code, DNR-CCA and DNR-CC status. Following discussions about the differences in these status, requested Full Code status. Advanced Care Planning Face to Face Time: 16 minutes. Charges/Coding Visit Charges Inpatient E&M: 87990 Init Hosp L2 Procedures Hospitalists Procedures: 05286 Advncd Care Plan 30 Min 06/28/252055 <Electronically signed by Mary Gregory MD> Cosigner Signature (if applicable): CC: Dr. Mary Grgeory MD; No Primary Care Physician~ Signed [facility] Work Phone: [phone]) 363-846805-28-2025 NoteDate of Procedure 03/23/2025. Truck Safety Inspector Information Radar Technician: sk. Start time: 8:36 AM. Quality Right Eye Good. Left Eye Good. NFL Interpretation Right Eye Superior loss. Left Eye Normal, Temporal loss. Ganglion Cell Layer Thickness Right Eye Diffuse loss. Left Eye Superior loss. Interval Change Right Eye Stable. Left Eye Stable. 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 Recheck as needed. 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 Stable nerve fiber layers in areas scanned today. Repeat in 1-2 years. No treatment indicated at this time. Discussed need for continued close observation to minimize chance of future vision loss. 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 Monitor. I have confirmed and edited as necessary the relevant HPI, ophthalmic history, ROS, and the neuro exam findings as obtained by others. I have seen and examined Kimberly Lee. I have discussed the case and the management of this patient's care with the Resident/Fellow, if applicable. I also have reviewed and agree with the assessment and plan as stated above and agree withall of its relevant components. documented in this encounterK[facility] NoteDate of Procedure 03/23/2025 [place] Protocol Safety Checklist A moment of CARE was completed Sign In Personnel directly involved with the procedure wore the appropriate PEE. Special Equipment: N/A. Patient/surrogate stated/verified patient name, date of . Provider Confirms: Relevant labs, photos, and/or imaging studies have been reviewed: N/A. Intended patient and procedure match the source document(s) (e.g. consent, associated studies [imaging, pathology]). Consent obtained and matches the intended procedure. Correct side/site marked and visible: N/A. Medications required for procedure verified: N/A. Fire risk assessed and interventions discussed: N/A. Correct implant(s) confirmed including size and side: N/A. Sign Out All specimens are correctly labeled and sent: N/A. All instruments, equipment, possible retained foreign bodies accounted for. Post-procedure POC communicated to patient or surrogate. Post-procedure POC communicated to patient's multidisciplinary team: N/A. Location Left lower lid, Right lower lid. Procedure Notes Epilation of lash(es) was performed at slitlamp with forceps without complication. Notes 6 lashes both eyes epilated. Recheck as needed.[facility] Note HNO ID: [id number] Author: TOMMY DOTSON II, OD Service: ? 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 Recheck as needed. 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 Stable nerve fiber layers in areas scanned today. Repeat in 1-2 years. No treatment indicated at this time. Discussed need for continued close observation to minimize chance of future vision loss. 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 Monitor. I have confirmed and edited as necessary the relevant HPI, ophthalmic history, ROS, and the neuro exam findings as obtained by others. I have seen and examined Kimberly Lee. I have discussed the case and the management of this patient's care with the Resident/Fellow, if applicable. 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 Recheck as needed. 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 Stable nerve fiber layers in areas scanned today. Repeat in 1-2 years. No treatment indicated at this time. Discussed need for continued close observation to minimize chance of future vision loss. 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 Monitor. I have confirmed and edited as necessary the relevant HPI, ophthalmic history, ROS, and the neuro exam findings as obtained by others. I have seen and examined Kimberly Lee. I have discussed the case and the management of this patient's care with the Resident/Fellow, if applicable. I also have reviewed and agree with the assessment and plan as stated above and agree withall of its relevant components. documented in this encounterKettering [facility]03-25-2025 Instructions* Patient Instructions* Van Dotson, OD - 01/18/2025 1:45 PM EDT ASSESSMENT/PLAN: 1. Bacterial conjunctivitis of both eyes - ICD9: 372.30, ICD10: H10.9, B96.89 Current Ophthalmic Meds olopatadine HCl (PATADAY OPHTHALMIC) polymyxin B-trimethoprim (POLYTRIM) 10,000 unit- 1 mg/mL ophthalmic solution Use 1 Drop in both eyes four times daily for 7 days. Can continue to use the Pataday in the morning but wait 15 minutes before using it. She can use the artificial tears in between the antibiotic drops but again, wait at least 15 minutes after using the antibiotic drop. Return as needed. documented in this encounterKettering [facility]03-25-2025 NoteHNO ID: [id number] Author: VAN DOTSON OD Service: ? Author Type: PORCELAIN MIXER Type: Progress Notes Filed: 01/18/2025 13:46 Note Text: ASSESSMENT/PLAN: 1. Bacterial conjunctivitis of both eyes - ICD9: 372.30, ICD10: H10.9, B96.89 Current Ophthalmic Meds olopatadine HCl (PATADAY OPHTHALMIC) polymyxin B-trimethoprim (POLYTRIM) 10,000 unit- 1 mg/mL ophthalmic solution Use 1 Drop in both eyes four times daily for 7 days. Can continue to use the Pataday in the morning but wait 15 minutes before using it. She can use the artificial tears in between the antibiotic drops but again, wait at least 15 minutes after using the antibiotic drop. Return as needed. Van Dotson, MARKUS I have confirmed and edited as necessary the relevant ophthalmic history, ROS, and the neuro exam findings as obtained by others.[facility] 01-18-2025 History of Present illness Narrative* Van Dotson, OD - 01/18/2025 1:43 PM EDT ASSESSMENT/PLAN: 1. Bacterial conjunctivitis of both eyes - ICD9: 372.30, ICD10: H10.9, B96.89 Current Ophthalmic Meds olopatadine HCl (PATADAY OPHTHALMIC) polymyxin B-trimethoprim (POLYTRIM) 10,000 unit- 1 mg/mL ophthalmic solution Use 1 Drop in both eyes four times daily for 7 days. Can continue to use the Pataday in the morning but wait 15 minutes before using it. She can use the artificial tears in between the antibiotic drops but again, wait at least 15 minutes after using the antibiotic drop. Return as needed. Van Dotson, MARKUS I have confirmed and edited as necessary the relevant ophthalmic history, ROS, and the neuro exam findings as obtained by others. documented in this encounterKet[facility]03-03-2025 NoteDate of Procedure 12/27/2024 [place] Protocol Safety Checklist Sign In: A moment to CARE completed, Special equipment verified, Appropriate PPE verified, Patient name, date of , allergies and intended procedure verified. Provider Confirms: Intended patient and procedure match the source document. No relevant labs, photos, and/or imaging studies to review. No medications required for procedure. No fire risk. No implants. Location Right lower lid, Left lower lid. Procedure Notes Epilation of lash(es) was performed at slitlamp with forceps without complication. Sign Out Sign out discussion completed, All instruments, equipment, and/or possible retained foreign bodies accounted for, Post-procedure follow up management communicated. No specimens.[facility]03-03-[facility] Instructions* Patient Instructions* Van Dotson OD - 12/27/2024 1:24 PM EST ASSESSMENT/PLAN: 1. 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 - ICD9: 374.05, ICD10: H02.055 Removed lashes in both eyes. Recommended starting Pataday daily and Systane three times a day Return if no improvement documented in this encounterKettering [facility]03-03-2025 NoteHNO ID: [id number] Author: VAN DOTSON OD Service: ? Author Type: PORCELAIN MIXER Type: Progress Notes Filed: 12/27/2024 13:26 Note Text: ASSESSMENT/PLAN: 1. 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 - ICD9: 374.05, ICD10: H02.055 Removed lashes in both eyes. Recommended starting Pataday daily and Systane three times a day Return if no improvement Van Dotson OD I have confirmed and edited as necessary the relevant ophthalmic history, ROS, and the neuro exam findings as obtained by others.[facility] 12-27-2024 History of Present illness Narrative* Van Dotson OD - 12/27/2024 1:23 PM EST ASSESSMENT/PLAN: 1. 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 - ICD9: 374.05, ICD10: H02.055 Removed lashes in both eyes. Recommended starting Pataday daily and Systane three times a day Return if no improvement Van Dotson OD I have confirmed and edited as necessary the relevant ophthalmic history, ROS, and the neuro exam findings as obtained by others. documented in this encounterKet[facility]12-23-2024 Instructions* Patient Instructions* Van Dotson OD - 10/18/2024 2:22 PM EST ASSESSMENT/PLAN: 1. Nonexudative age-related macular degeneration, bilateral, early dry stage - ICD9: 362.51, ICD10:H35.3131 (primary diagnosis) 2. Macular RPE mottling - ICD9: 362.89, ICD10: H35.89 Changes in the macula have been noted and recommended the importance of regular monitoring. Counseled Kimberly Lee on the importance of not smoking, the use of ocular vitamins, and a healthy diet. Also discussed the importance of home monitoring with the [employer]msler grid that was given with instructions, and the need to report any changes to our office immediately. 3. Squamous blepharitis of upper and lower eyelids of both eyes - ICD9: 373.02, ICD10: H01.02A, H01.02B Continue to do the lid scrubs as desired. 4. Chronically dry eyes, bilateral - ICD9: 375.15, ICD10: H04.123 Recommended the use of artificial tears four times per day to maintain good vision and comfort. Discussed contacting the office if there is a change in comfort or vision. 5. 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 OCT Macula Interpretation Right Eye Findings include Drusen, RPE Irregularity. Left Eye Findings include Drusen, RPE Irregularity. Interval Change Right Eye Stable. Left Eye Stable.[id number] NoteDate of Procedure 10/18/2024 [place] Protocol Safety Checklist Sign In: A moment to CARE completed, Special equipment verified, Appropriate PPE verified, Patient name, date of , allergies and intended procedure verified. Provider Confirms: Correct side/site marked visible, Consent documented and matches the intended procedure, Intended patient and procedure match the source document. No relevant labs, photos, and/or imaging studies to review. No medications required for procedure. No fire risk. No implants. Location Right lower lid. Sign Out Sign out discussion completed, All instruments, equipment, and/or possible retained foreign bodies accounted for, Post-procedure follow up management communicated. No specimens.[facility]12-[facility]-2024 NoteHNO ID: [id number] Author: VAN DOTSON OD Service: ? Author Type: PORCELAIN MIXER Type: Progress Notes Filed: 10/18/2024 14:22 Note Text: ASSESSMENT/PLAN: 1. Nonexudative age-related macular degeneration, bilateral, early dry stage - ICD9: 362.51, ICD10: H35.3131 (primary diagnosis) 2. Macular RPE mottling - ICD9: 362.89, ICD10: H35.89 Changes in the macula have been noted and recommended the importance of regular monitoring. Counseled Kimberly Lee on the importance of not smoking, the use of ocular vitamins, and a healthy diet. Also discussed the importance of home monitoring with the [place]msler grid that was given with instructions, and the need to report any changes to our office immediately. 3. Squamous blepharitis of upper and lower eyelids of both eyes - ICD9: 373.02, ICD10: H01.02A, H01.02B Continue to do the lid scrubs as desired. 4. Chronically dry eyes, bilateral - ICD9: 375.15, ICD10: H04.123 Recommended the use of artificial tears four times per day to maintain good vision and comfort. Discussed contacting the office if there is a change in comfort or vision. 5. 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 Nonexudative age-related macular degeneration, bilateral, early dry stage - ICD9: 362.51, ICD10:H35.3131 (primary diagnosis) 2. Macular RPE mottling - ICD9: 362.89, ICD10: H35.89 Changes in the macula have been noted and recommended the importance of regular monitoring. Counseled Kimberly Lee on the importance of not smoking, the use of ocular vitamins, and a healthy diet. Also discussed the importance of home monitoring with the [employer]msler grid that was given with instructions, and the need to report any changes to our office immediately. 3. Squamous blepharitis of upper and lower eyelids of both eyes - ICD9: 373.02, ICD10: H01.02A, H01.02B Continue to do the lid scrubs as desired. 4. Chronically dry eyes, bilateral - ICD9: 375.15, ICD10: H04.123 Recommended the use of artificial tears four times per day to maintain good vision and comfort. Discussed contacting the office if there is a change in comfort or vision. 5. 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 documented in this encounterK[facility]11-25-2024 Instructions* Patient Instructions* Van Dotson, OD - 09/20/2024 2:47 PM EST ASSESSMENT/PLAN: 1. Squamous blepharitis of upper and lower eyelids of both eyes - ICD9: 373.02, ICD10: H01.02A, H01.02B (primary diagnosis) Recommended using hot compresses several times per day, always before the lid scrubs. Recommended lid scrubs to be done daily. Suggested the use of Ocusoft Lid Scrubs to be used with a clean wash cloth to gently rub along the top and bottom lash line to remove the matter and rinse thoroughly. Be careful not to get the solution in the eyes. 2. Chronically dry eyes, bilateral - ICD9: 375.15, ICD10: H04.123 Current Ophthalmic Meds propylene glycoL, PF, (SYSTANE COMPLETE PF) 0.6 % drop Use 1 Drop in both eyes four times daily. Stop the prescription anitbiotic at this time. Return in 2-3 weeks for follow up and dilated exam documented in this encounterKettering [facility]11-25-2024 NoteHNO ID: [id number] Author: VAN DOTSON OD Service: ? Author Type: PORCELAIN MIXER Type: Progress Notes Filed: 09/20/2024 14:49 Note Text: ASSESSMENT/PLAN: 1. Squamous blepharitis of upper and lower eyelids of both eyes - ICD9: 373.02, ICD10: H01.02A, H01.02B (primary diagnosis) Recommended using hot compresses several times per day, always before the lid scrubs. Recommended lid scrubs to be done daily. Suggested the use of Ocusoft Lid Scrubs to be used with a clean wash cloth to gently rub along the top and bottom lash line to remove the matter and rinse thoroughly. Be careful not to get the solution in the eyes. 2. Chronically dry eyes, bilateral - ICD9: 375.15, ICD10: H04.123 Current Ophthalmic Meds propylene glycoL, PF, (SYSTANE COMPLETE PF) 0.6 % drop Use 1 Drop in both eyes four times daily. Stop the prescription anitbiotic at this time. Return in 2-3 weeks for follow up and dilated Van Dotson, OD I have confirmed and edited as necessary the relevant ophthalmic history, ROS, and the neuro exam findings as obtained by others.[facility] 09-20-2024 History of Present illness Narrative* Van Dotson, OD - 09/20/2024 2:44 PM EST ASSESSMENT/PLAN: 1. Squamous blepharitis of upper and lower eyelids of both eyes - ICD9: 373.02, ICD10: H01.02A, H01.02B (primary diagnosis) Recommended using hot compresses several times per day, always before the lid scrubs. Recommended lid scrubs to be done daily. Suggested the use of Ocusoft Lid Scrubs to be used with a clean wash cloth to gently rub along the top and bottom lash line to remove the matter and rinse thoroughly. Be careful not to get the solution in the eyes. 2. Chronically dry eyes, bilateral - ICD9: 375.15, ICD10: H04.123 Current Ophthalmic Meds propylene glycoL, PF, (SYSTANE COMPLETE PF) 0.6 % drop Use 1 Drop in both eyes four times daily. Stop the prescription anitbiotic at this time. Return in 2-3 weeks for follow up and dilated Van Dotson, MARKUS I have confirmed and edited as necessary the relevant ophthalmic history, ROS, and the neuro exam findings as obtained by others. 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 Recheck as needed. H10.9, B96.89 Bacterial conjunctivitis of both eyes Comment: Start use of Polytrim 1 gt both eyes four times a day x 5 days. Lid scrubs. Recheck as needed. I have confirmed and edited as necessary the relevant HPI, ophthalmic history, ROS, and the neuro exam findings as obtained by others. I have seen and examined Kimberly Lee. I have discussed the case and the management of this patient's care with the Resident/Fellow, if applicable. I also have reviewed and agree with the assessment and plan as stated above and agree withall of its relevant components. documented in this encounterK[facility]-2024 NoteDate of Procedure 09/15/2024 [place] Protocol Safety Checklist Sign In: A moment to CARE completed, Special equipment verified, Appropriate PPE verified, Patient name, date of , allergies and intended procedure verified. Provider Confirms: Intended patient and procedure match the source document. No relevant labs, photos, and/or imaging studies to review. Medications required for procedure verified. No fire risk. No implants. Location Right lower lid, Left lower lid. Procedure Notes Epilation of lash(es) was performed at slitlamp with forceps without complication. Sign Out Sign out discussion completed, All instruments, equipment, and/or possible retained foreign bodies accounted for, Post-procedure follow up management communicated. No specimens.[facility]24 NoteHNO ID: [id number] Author: TOMMY DOTSON II, MARKUS Service: ? 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 Recheck as needed. H10.9, B96.89 Bacterial conjunctivitis of both eyes Comment: Start use of Polytrim 1 gt both eyes four times a day x 5 days. Lid scrubs. Recheck as needed. I have confirmed and edited as necessary the relevant HPI, ophthalmic history, ROS, and the neuro exam findings as obtained by others. I have seen and examined Kimberly Lee. I have discussed the case and the management of this patient's care with the Resident/Fellow, if applicable. 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 Recheck as needed. H10.9, B96.89 Bacterial conjunctivitis of both eyes Comment: Start use of Polytrim 1 gt both eyes four times a day x 5 days. Lid scrubs. Recheck as needed. I have confirmed and edited as necessary the relevant HPI, ophthalmic history, ROS, and the neuro exam findings as obtained by others. I have seen and examined Kimberly Lee. I have discussed the case and the management of this patient's care with the Resident/Fellow, if applicable. I also have reviewed and agree with the assessment and plan as stated above and agree withall of its relevant components. documented in this encounterK[facility]07-25-2024 Instructions* Patient Instructions* Tommy Dotson II, OD - 05/20/2024 10:24 AM EDT Assessment and Plan H02.052 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 (primary encounter diagnosis) H02.055 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 Comment: Epilated offending lashes both eyes. Monitor for recurrence. H10.13 Allergic conjunctivitis of both eyes Comment: Ocular allergies noted both eyes. Recommend use of OTC Pataday 0.2% 1 drop both eyes once daily as needed for relief of symptoms. Advise patient to immediately report worsening in status or additional symptoms. I have confirmed and edited as necessary the relevant HPI, ophthalmic history, ROS, and the neuro exam findings as obtained by others. I have seen and examined Kimberly Lee. I have discussed the case and the management of this patient's care with the Resident/Fellow, if applicable. I also have reviewed and agree with the assessment and plan as stated above and agree withall of its relevant components. documented in this encounterK[facility]07-25-2024 NoteHNO ID: [id number] Author: TOMMY DOTSON II, OD Service: ? 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 Monitor for recurrence. H10.13 Allergic conjunctivitis of both eyes Comment: Ocular allergies noted both eyes. Recommend use of OTC Pataday 0.2% 1 drop both eyes once daily as needed for relief of symptoms. Advise patient to immediately report worsening in status or additional symptoms. I have confirmed and edited as necessary the relevant HPI, ophthalmic history, ROS, and the neuro exam findings as obtained by others. I have seen and examined Kimberly Lee. I have discussed the case and the management of this patient's care with the Resident/Fellow, if applicable. 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 Monitor for recurrence. H10.13 Allergic conjunctivitis of both eyes Comment: Ocular allergies noted both eyes. Recommend use of OTC Pataday 0.2% 1 drop both eyes once daily as needed for relief of symptoms. Advise patient to immediately report worsening in status or additional symptoms. I have confirmed and edited as necessary the relevant HPI, ophthalmic history, ROS, and the neuro exam findings as obtained by others. I have seen and examined Kimberly Lee. I have discussed the case and the management of this patient's care with the Resident/Fellow, if applicable. I also have reviewed and agree with the assessment and plan as stated above and agree withall of its relevant components. documented in this encounterK[facility]07-25-2024 NoteDate of Procedure 05/20/2024 [place] Protocol Safety Checklist Sign In: A moment to CARE completed, Special equipment verified, Appropriate PPE verified, Patient name, date of , allergies and intended procedure verified. Provider Confirms: Intended patient and procedure match the source document. No relevant labs, photos, and/or imaging studies to review. Medications required for procedure verified. No fire risk. No implants. Location Right lower lid, Left lower lid. Procedure Notes Epilation of lash(es) was performed at slitlamp with forceps without complication. Sign Out Sign out discussion completed, All instruments, equipment, and/or possible retained foreign bodies accounted for, Post-procedure follow up management communicated. No specimens.[facility] Instructions* Patient Instructions* Tommy Dotson II, OD - 05/28/2023 1:20 PM EDT Assessment and Plan H35.89 Macular RPE mottling (primary encounter diagnosis) H35.3131 Nonexudative age-related macular degeneration, bilateral, early dry stage Comment: AREDS 2 supplementation (continue), smoking and warnings regarding the transformation fromdry to the wet form of macular degeneration [...] and plan as stated above and agree withall of its relevant components. Tommy Dotson II, OD documented in this encounterK[facility]08-02-2023 History of Present illness Narrative* Tommy Dotson II, OD - 05/28/2023 1:18 PM EDT Assessment and Plan H35.89 Macular RPE mottling (primary encounter diagnosis) H35.3131 Nonexudative age-related macular degeneration, bilateral, early dry stage Comment: AREDS 2 supplementation (continue), smoking and warnings regarding the transformation fromdry to the wet form of macular degeneration [...] and plan as stated above and agree withall of its relevant components. Tommy Dotson II, OD documented in this encounterK[facility]04-28-[address] Berg [facility] February 21, 2023 4:12pm Note Date/Time February 21, 2023 1:3 6pm [facility] Medical Records Department [address] [place] [address] Emergency Department Summary 02/21/23 MR#: [id number] Acct: [id number] Name: KIMBERLY LEE Rep #:[id number] : 1940 82 From: Ta Berg MD PCP: Dr. Anita Sung MD Status:REG ER Location: ED HPI History of Present Illness Chief Complaint: Chest Pain Detail of Chief Complaint: Heartburn Informant: patient Onset/Context/Timing Onset: Today Activity at onset: sudden and sleep Timing: Continuous Quality: Positive for Burning Location: Substernal Current Severity: Mild Maximum Severity: Moderate Worsened By: Nothing Relieved By: Nothing and - (Patient states she took antiacid without improvement. She took Tylenol without improvement.) Associated Symptoms: Positive for Dyspnea and Lightheadedness; Negative for Nausea, Vomiting, Diaphoresis, Cough, Fever, Acid Reflux or Palpitations Narrative Narrative: Patient is an 82-year-old woman with history of atherosclerotic heart disease status post 2 stents placed in 2013. She also has history of hypertension, pulmonary hypertension, hyperlipidemia and bilateral carotid artery stenosis. Patient describes the discomfort as a burning sensation radiating to her neck bilaterally and into her back. When she had her cardia event in 2013 she had back pain and left-sided chest pain. She does not remember the quality of the pain. She denies black or maroon stool. She denies fever, chills night sweats. She denies weight gain or weight loss. She does have history of hiatal hernia. States this pain is different. There are no alleviating, exacerbating factor there is. Prior Similar Symptoms: No Recent Illness/Hospitalization: No CVD Risk Factors: Positive for Hypertension, Diabetes, Smoking (Former) and - (Known coronary artery disease) PE Risk Factors: Negative for Recent Travel/Surgery, Recent Immobilization, Prior DVT or PE, Cancer or OCP + Smoking + >/=35 TAD Risk Factors: Positive for Hypertension; Negative for Marfan's Syndrome or Family History [facility] Medical History Acute right hip pain Atherosclerotic heart disease of [place] coronary artery without angina pectoris Bilateral carotid artery stenosis Carotid bruit Celiac artery stenosis Diverticulosis Dysphagia Essential (primary) hypertension GERD (gastroesophageal reflux disease) Hemorrhoids History of bacterial pneumonia History of Helicobacter pylori infection HLD (hyperlipidemia) Kidney stones LVH (left ventricular hypertrophy) NSTEMI (non-ST elevated myocardial infarction) Osteoarthritis Renal cysts, acquired, bilateral Secondary pulmonary arterial hypertension Unstable angina Home Medications aspirin 81 mg tablet,delayed release 81 mg PO DAILY@0800 12/27/13 [History Last Taken 07/13/18] atorvastatin 40 mg tablet 40 mg PO QHS 12/27/13 [History Last Taken Unknown] clopidogrel 75 mg tablet 75 mg PO DAILY 01/12/17 [History Last Taken 07/13/18] isosorbide mononitrate 60 mg tablet,extended release 24 hr 60 mg PO DAILY #90 tabs 08/10/20 [Rx Last Taken Unknown] olopatadine 0.2 % [facility] 1 drp ophthalmic (eye) DAILY 08/29/20 [History Last Taken Unknown] vit C 250 mg-vit E 90 mg-zinc 40 mg-copper 1 [id number] capsule (PreserVision AREDS-2) 1 tab PO BID 08/29/20 [History Last Taken Unknown] nitroglycerin 0.4 mg sublingual tablet 0.4 mg sublingual Q5-15M PRN chest pain #25 tabs 09/25/20 [Rx Last Taken Unknown] famotidine 20 mg tablet 20 mg PO BID 11/24/20 [History Last Taken Unknown] metoprolol succinate 50 mg tablet,extended release 24 hr 25 mg PO BID 08/21/21 [History Last Taken Unknown] azithromycin 250 mg tablet 250 mg PO DAILY 09/03/22 [History Last Taken Unknown] diltiazem HCl 120 mg capsule,extended release 24 hr 120 mg PO BID 11/08/22 [History Last Taken Unknown] melatonin 5 mg capsule 5 mg PO QHS PRN Sleep 09/03/22 [History Last Taken Unknown] propylene glycol 0.6 % eye drops (Systane Balance) 1 drp ophthalmic (eye) DAILY PRN Dry Eyes 09/03/22 [History Last Taken Unknown] clonidine HCl 0.1 mg tablet 0.1 mg PO .COMPLEX 11/11/22 [History Last Taken Unknown] furosemide 20 mg tablet 20 mg PO DAILY 11/11/22 [History Last Taken Unknown] losartan 100 mg tablet 100 mg PO DAILY 11/11/22 [History Last Taken Unknown] ondansetron 4 mg disintegrating tablet 4 mg PO Q8H PRN PRN Nausea #14 tabs 01/07/23 [Rx Last Taken Unknown] oxycodone-acetaminophen 5 mg-325 mg tablet (Endocet) 1 tab PO Q6H PRN pain 3 days #12 tabs 01/07/23 [Rx Last Taken Unknown] omeprazole 40 mg capsule,delayed release 40 mg PO DAILY #30 caps 02/21/23 [Rx Last Taken Unknown] sucralfate 1 gram tablet 1 g PO BID #30 tabs 02/21/23 [Rx Last Taken Unknown] Allergy/AdvReac Type Severity Reaction Status Date / Time pantoprazole Allergy Rash Verified 02/21/23 12:50 hydrocodone bitartrate AdvReac Other Verified 02/21/23 12:50 [From Vicodin] metronidazole AdvReac nausea Verified 02/21/23 12:50 Family History Father Cancer Surgical History History of bladder surgery History of coronary artery stent placement (12/07/12) History of esophagogastroduodenoscopy (EGD) History of excision of pilonidal cyst History of hysterectomy History of laparoscopic appendectomy History of laparoscopic cholecystectomy History of left heart catheterization (06/2018) History of tubal ligation historybladder surgery Hx of cataract extraction Social History Smoking Status: Former smoker alcohol intake: never substance use type: does not use caffeine: Yes what type of physical activity do you participate in: none frequency: does not exercise seatbelt use: always ROS ROS ED Eyes Eyes: Reports none ENT ENT ED: Denies ear pain, rhinorrhea or sore throat Cardiovascular Cardiovascular: Reports as per HPI; Denies orthopnea or paroxysmal nocturnal dyspnea Respiratory/Chest Respiratory/Chest: Reports dyspnea; Denies cough, dyspnea on exertion, orthopneaor paroxysmal nocturnal dyspnea Gastrointestinal Gastrointestinal: Denies abdominal pain, constipation, diarrhea, melena, nausea or vomiting Genitourinary Genitourinary ED: Denies dysuria, hematuria or urinary frequency Musculoskeletal Musculoskeletal: Denies arthralgias, back pain, myalgias or neck pain Integumentary Denies abscess, Abrasions or rash Neurologic Neurologic: Denies headache(s) or paresthesias Psychiatric Psychiatric: Denies anxiety or depression Endocrine Endocrinology: Denies cold intolerance or heat intolerance Hematologic/Lymphatic Hematologic/Lymphatic: Denies easy bleeding or easy bruising Allergic/Immunologic Allergic/Immunologic ED: Denies mouth swelling or tongue swelling EXAM Physical Exam Const Vital Signs: 02/21/23 12:48 02/21/23 13:16 02/21/23 13:23 Temperature 97 F L Temperature Source Temporal Pulse Rate 66 Respiratory Rate 18 Respiratory Effort Normal Non-Labored Blood Pressure 159/49 H Blood Pressure Mean 85 Pulse Ox 94 Oxygen Delivery Method Room Air Room Air Positive well nourished and well developed General Appearance ED: well developed and NAD; Negative for pallor HEENT Reports TM's clear and moist mucous membranes normocephalic and atraumatic Tympanic Membrane ED: Yes TM's clear Eyes PERRL and EOMs intact bilaterally General Eye ED: Negative for pale conjunctiva or scleral icterus Neck no lymphadenopathy, supple and no JVD Chest Wall inspection of chest normal and palpation of chest normal Resp normal respiratory effort and clear to auscultation bilaterally Cardio regular rate, regular rhythm, S1 normal heart sound, S2 normal heart sound and no murmurs GI normal to inspection, nondistended, normoactive bowel sounds, soft to palpation,non-tender, non-distended and no masses; Negative for hepatosplenomegaly Back/Spine no CVA tenderness and no thoracic nor lumbar tenderness Extremity normal to inspection General Extremety ED: Negative for pulses abnormal or tenderness General Extremity: Negative for pulses abnormal Neuro oriented x3, CN's II-XII intact bilaterally, no sensory deficits noted and gait normal Sensorium / Orientation: awake and alert Psych mental status grossly normal Skin no rashes or lesions noted and no wounds General Skin Exam: Negative for jaundice or pallor Heart Score History: Slightly/Non-Suspicious ECG: Normal Age: >/= 65 years Risk Factors: >/= 3 Risk Factors or History of CAD Score: 4 MDM MDM MDM Narrative Medical decision making narrative: Patient with atypical chest discomfort. This may represent Zent cardiac ischemia due to lesion in RCA. Also need to rule out GI etiology. Her work-up included an EKG, chest x-ray and appropriate blood work. History and physical exam is not consistent with biliary disease. History & Record Review Discussion w/independent historian: Patient and Significant other Additional record(s) reviewed:: Prior inpatient record (Patient did have a cardiac catheterization with placement of 2 stents at outside facility.), Prior outpatient record, Prior ED visit and Prior labs Lab Data Attestation: I reviewed the patient's lab results. Lab results narrative: CBC is normal. Basic metabolic panel reveals mild hypokalemia and mild elevation of creatinine, 1.17 with a GFR of 47. Glucose is elevated 188 with a normal CO2 and anion gap. First troponin is normal at 3. Labs: Laboratory Results - last 24 hr 02/21/23 02/21/23 13:21 13:21 WBC 6.1 RBC 4.40 Hgb 13.7 Hct 41.7 MCV 94.8 MCH 31.1 MCHC 32.9 RDW Std Deviation 50.1 H RDW Coeff of Daphnie 14.5 Plt Count 178 MPV 10.5 Immature Gran % (Auto) 0.300 Neut % (Auto) 64.2 Lymph % (Auto) 27.5 [place] % (Auto) 6.5 Eos % (Auto) 0.8 Baso % (Auto) 0.7 Absolute Neuts (auto) 3.9 Absolute Lymphs (auto) 1.68 Nucleated RBC % 0 Sodium 138 Potassium 3.2 L Chloride 102 Carbon Dioxide 30.0 Anion Gap 6 BUN 30 H Creatinine 1.17 H Estim Creat Clear Calc 28.94 Est GFR (MDRD) Af Amer 57 L Est GFR (MDRD) Non-Af 47 L BUN/Creatinine Ratio 25.6 H Glucose 188 H Calcium 9.2 Troponin I High Sens 3 Radiography Diagnostic Testing: Clinical Impression(s) from Imaging Studies Chest X-Ray 02/21/23 13:25 IMPRESSION: Hyperinflation. The lungs are clear. Electronically Signed: Ameya Singh MD at 13:43 EDT , EKG Initial EKG: Attestation: I personally reviewed and interpreted this EKG as follows: Interpretation: Sinus Rhythm (Rate is 66. There is premature ventricular beats noted. OH interval is 122 ms. Cures duration 78 ms. QT duration 4 to 22ms. [place] is normal. The only abnormality is the PVCs and possible nonspecific ST changes noted in lead I and II.) Treatment and Re-Evaluation :: Was reassessed after GI cocktail. Patient did have improvement. Suspect this is due to GERD especially with a normal troponin. She does have an appointment see Dr. Prince Valentino March of this year. Will change her medicine from H2 daniele to up. Cannot take Protonix because of allergic reaction. Discharge Plan Triage Chief Complaint: Chest Pain ED Provider: Ta Berg Dx/Rx/DC Orders Clinical Impression: Chest pain due to GERD, Secondary pulmonary arterial hypertension, Celiac artery stenosis, Essential (primary) hypertension, Bilateral carotid artery stenosis, History of coronary artery stent placement, HLD (hyperlipidemia) Instructions: GERD Lifestyle Changes, ED GERD (Adult) Prescriptions: New omeprazole 40 mg capsule,delayed release(DR/EC) 40 mg PO DAILY Qty: 30 2RF sucralfate 1 gram tablet 1 g PO BID Qty: 30 1RF No Action isosorbide mononitrate 60 mg tablet extended release 24 hr 60 mg PO DAILY Qty: 90 3RF olopatadine [Pataday] 0.2 % drops 1 drp OPHTHALMIC DAILY PreserVision AREDS-2 [id number] ft-[id number]-mg capsule 1 tab PO BID Rx Instructions: administer with meals famotidine 20 mg tablet 20 mg PO BID metoprolol succinate 50 mg tablet extended release 24 hr 25 mg PO BID diltiazem HCl 120 mg capsule,extended release 24hr 120 mg PO BID melatonin 5 mg capsule 5 mg PO QHS PRN (Reason: Sleep) Systane Balance 0.6 % drops 1 drp ophthalmic (eye) DAILY PRN (Reason: Dry Eyes) azithromycin 250 mg tablet 250 mg PO DAILY furosemide 20 mg tablet 20 mg PO DAILY losartan 100 mg tablet 100 mg PO DAILY clonidine HCl 0.1 mg tablet 0.1 mg PO .COMPLEX Rx Instructions: 0.1 mg orally twice a day for SBP >160.; atorvastatin 40 MG tablet 40 mg PO QHS aspirin 81 MG tablet 81 mg PO DAILY@0800 clopidogrel 75 MG tablet 75 mg PO DAILY oxycodone-acetaminophen [Endocet] 5-325 mg tablet 1 tab PO Q6H PRN (Reason: pain) 3 Days Qty: 12 0RF ondansetron 4 mg tablet,disintegrating 4 mg PO Q8H PRN PRN (Reason: Nausea) Qty: 14 0RF nitroglycerin 0.4 mg tablet, sublingual 0.4 mg SUBLINGUAL Q5-15M PRN (Reason: chest pain) Qty: 25 3RF Rx Instructions: until response; do not exceed 3 doses per episode Primary Care Provider: Anita Sung Referrals: Anita Sung MD [Primary Care Provider] - Prince Valentino MD [Non-Staff] - Keep Lisandro appointment Activity Restrictions/Additional Instructions: Discontinue taking Pepcid, famotidine. Disposition Disposition: Home, Self Care What to do if you have Problems For any increased pain, shortness of breath, bleeding, nausea or vomiting, chestpain, or any unexpected problems, contact your Primary Care Provider. Call [facility] ([phone]) or report to the closest Emergency Room. Call 911 if necessary. 02/21/232 <Electronically signed by Ta Berg MD> Cosigner Signature (if applicable): CC: Dr. Anita Sung MD ~ Signed [facility] Work Phone: [phone]) 704-192203-14-[address] Berg [facility] January 07, 2023 10:47pm Note Date/Time January 07, 2023 9:4 9pm [facility] Medical Records Department [address] [place] [address] Emergency Department Summary 01/07/23 MR#: [id number] Acct: [id number] Name: KIMBERLY LEE Rep #:[id number] : 1940 82 From: Ta Berg MD PCP: Dr. Anita Sung MD Status:REG ER Location: ED HPI History of Present Illness Chief Complaint: Nausea/Vomiting Detail of Chief Complaint: Patient presents with nausea without vomiting Informant: patient Onset/Context/Timing Onset: Hours Context: Sudden Onset Timing: Continuous Quality: Nausea Location: Generalized wooziness of the abdomen Current Severity: Moderate Maximum Severity: Severe Worsened by: Possibly the oxycodone patient was prescribed for her obstructing proximal Relieved by: Nothing Associated Symptoms Associated Symptoms: The right flank pain has improved since he took the pain medicine Narrative Narrative: Patient is an 82-year-old woman. She was seen earlier today by Dr. Martinez. His records were reviewed. The interpretation of the CAT scan with out contrastof the abdomen pelvis was confusing. The CAT scan was independently reviewed byme. There is a stone in the right mid renal pelvis. There is also a proximal right ureteral stone that is causing mild dilatation. Patient denies fever or chills. She reports lightheadedness and significant nausea. Uncertain whether she took the Zofran she was prescribed or when that may have been prescribed. We will ask her. Patient denies headache, visual, ocular auditory symptoms. Patient denies problems with coordination or balance. Patient denies cardiac respiratory symptoms. Prior similar symptoms: Yes (Pain from obstructing proximal ureteral stone. Nausea apparently after loreta) Recent Illness/[facility]: [facility] Medical History Acute right hip pain Atherosclerotic heart disease of [place] coronary artery without angina pectoris Bilateral carotid artery stenosis Carotid bruit Celiac artery stenosis Diverticulosis Dysphagia Essential (primary) hypertension GERD (gastroesophageal reflux disease) Hemorrhoids History of bacterial pneumonia History of Helicobacter pylori infection HLD (hyperlipidemia) Kidney stones LVH (left ventricular hypertrophy) NSTEMI (non-ST elevated myocardial infarction) Osteoarthritis Renal cysts, acquired, bilateral Secondary pulmonary arterial hypertension Unstable angina Home Medications aspirin 81 mg tablet,delayed release 81 mg PO DAILY@0800 12/27/13 [History Last Taken 07/13/18] atorvastatin 40 mg tablet 40 mg PO QHS 12/27/13 [History Last Taken Unknown] clopidogrel 75 mg tablet 75 mg PO DAILY 01/12/17 [History Last Taken 07/13/18] isosorbide mononitrate 60 mg tablet,extended release 24 hr 60 mg PO DAILY #90 tabs 08/10/20 [Rx Last Taken Unknown] olopatadine 0.2 % eye drops (Pataday) 1 drp ophthalmic (eye) DAILY 08/29/20 [History Last Taken Unknown] vit C 250 mg-vit E 90 mg-zinc 40 mg-copper 1 [id number] capsule (PreserVision AREDS-2) 1 tab PO BID 08/29/20 [History Last Taken Unknown] nitroglycerin 0.4 mg sublingual tablet 0.4 mg sublingual Q5-15M PRN chest pain #25 tabs 09/25/20 [Rx Last Taken Unknown] famotidine 20 mg tablet 20 mg PO BID 11/24/20 [History Last Taken Unknown] metoprolol succinate 50 mg tablet,extended release 24 hr 25 mg PO BID 08/21/21 [History Last Taken Unknown] azithromycin 250 mg tablet 250 mg PO DAILY 09/03/22 [History Last Taken Unknown] diltiazem HCl 120 mg capsule,extended release 24 hr 120 mg PO BID 09/03/22 [History Last Taken Unknown] melatonin 5 mg capsule 5 mg PO QHS PRN Sleep 09/03/22 [History Last Taken Unknown] propylene glycol 0.6 % eye drops (Systane Balance) 1 drp ophthalmic (eye) DAILY PRN Dry Eyes 09/03/22 [History Last Taken Unknown] clonidine HCl 0.1 mg tablet 0.1 mg PO .COMPLEX 11/11/22 [History Last Taken Unknown] furosemide 20 mg tablet 20 mg PO DAILY 11/11/22 [History Last Taken Unknown] losartan 100 mg tablet 100 mg PO DAILY 11/11/22 [History Last Taken Unknown] ondansetron 4 mg disintegrating tablet 4 mg PO Q8H PRN PRN Nausea #14 tabs 01/07/23 [Rx Last Taken Unknown] oxycodone-acetaminophen 5 mg-325 mg tablet (Endocet) 1 tab PO Q6H PRN pain 3 days #12 tabs 01/07/23 [Rx Last Taken Unknown] Allergy/AdvReac Type Severity Reaction Status Date / Time hydrocodone bitartrate AdvReac Other Verified 01/07/23 21:21 [From Vicodin] metronidazole AdvReac nausea Verified 01/07/23 21:21 Family History Father Cancer Surgical History History of bladder surgery History of coronary artery stent placement (12/07/12) History of esophagogastroduodenoscopy (EGD) History of excision of pilonidal cyst History of hysterectomy History of laparoscopic appendectomy History of laparoscopic cholecystectomy History of left heart catheterization (06/2018) History of tubal ligation historybladder surgery Hx of cataract extraction Social History Smoking Status: Former smoker alcohol intake: never substance use type: does not use caffeine: Yes what type of physical activity do you participate in: none frequency: does not exercise seatbelt use: always ROS ROS ED Constitutional Constitutional ED: Reports sweats; Denies chills, fever(s), subjective or weightloss Eyes Eyes: Denies blurry vision, change in vision or diplopia ENT ENT ED: Reports other Details: Patient has tinnitus ; Denies ear pain, rhinorrhea or sore throat Cardiovascular Cardiovascular: Denies chest pain or palpitations Respiratory/Chest Respiratory/Chest: Denies cough, dyspnea or dyspnea on exertion Gastrointestinal Gastrointestinal: Reports nausea; Denies abdominal pain, diarrhea or vomiting Genitourinary Genitourinary ED: Reports urinary frequency; Denies dysuria or hematuria Musculoskeletal Musculoskeletal: Reports other Details: Right flank pain ; Denies arthralgias, back pain, myalgias or neck pain Integumentary Denies rash Neurologic Neurologic: Reports weakness; Denies paresthesias Hematologic/Lymphatic Hematologic/Lymphatic: Reports systems reviewed and no addt'l complaints, exceptas documented EXAM Physical Exam Const Vital Signs: 01/07/23 21:21 01/07/23 21:25 01/07/23 21:26 Temperature 97.5 F L Temperature Source Oral Pulse Rate 71 Pulse Rate [Lying] Pulse Rate [Sitting (for 1 minute prior to obtaining)] Pulse Rate [Standing (for 1 minute prior to obtaining)] Respiratory Rate 18 Respiratory Effort Normal Non-Labored Respiratory Pattern Normal Blood Pressure 151/67 H Blood Pressure [Lying] Blood Pressure [Sitting (for 1 minute prior to obtaining)] Blood Pressure [Standing (for 1 minute prior to obtaining)] Blood Pressure Mean 95 Blood Pressure Mean [Lying] Blood Pressure Mean [Sitting (for 1 minute prior to obtaining)] Blood Pressure Mean [Standing (for 1 minute prior to obtaining)] Pulse Ox 96 Oxygen Delivery Method Room Air 01/07/23 22:03 01/07/23 22:38 Temperature Temperature Source Pulse Rate 71 Pulse Rate [Lying] 76 Pulse Rate [Sitting (for 1 minute prior to obtaining)] 74 Pulse Rate [Standing (for 1 minute prior to obtaining)] 80 Respiratory Rate 16 Respiratory Effort Respiratory Pattern Blood Pressure 178/78 H Blood Pressure [Lying] 166/69 H Blood Pressure [Sitting (for 1 minute prior to obtaining)] 167/78 H Blood Pressure [Standing (for 1 minute prior to obtaining)] 178/78 H Blood Pressure Mean 111 Blood Pressure Mean [Lying] 101 Blood Pressure Mean [Sitting (for 1 minute prior to obtaining)] 107 Blood Pressure Mean [Standing (for 1 minute prior to obtaining)] 111 Pulse Ox 93 Oxygen Delivery Method Room Air Positive well nourished and well developed Constitutional Narrative: Patient is slightly diaphoretic and pale looking. General Appearance ED: well developed and pallor; Negative for cyanotic or diaphoretic HEENT Reports moist mucous membranes HEENT Narrative: Head is atraumatic normocephalic. Ears are normal. Nares patent. Posterior pharynx is normal. Eyes PERRL and EOMs intact bilaterally General Eye ED: Negative for pale conjunctiva or scleral icterus Neck no lymphadenopathy, supple and no JVD Chest Wall inspection of chest normal and palpation of chest normal Resp normal respiratory effort and clear to auscultation bilaterally Cardio regular rate, regular rhythm, S1 normal heart sound, S2 normal heart sound and no murmurs GI normal to inspection, nondistended, normoactive bowel sounds, non-tender, non-distended and no masses; Negative for hepatosplenomegaly Back/Spine General Back: CVA tenderness right Extremity normal to inspection Neuro oriented x3 and CN's II-XII intact bilaterally Sensorium / Orientation: alert Psych mental status grossly normal Skin no rashes or lesions noted, no wounds and No skin turgor normal General Skin Exam: pallor; Negative for elasticity normal or jaundice MDM MDM MDM Narrative Medical decision making narrative: Patient was discharged several hours ago laboratory studies were not repeated. We will treat with Zofran for her nausea. She states the pain is markedly improved since taking the oxycodone. Treatment and Re-Evaluation :: Patient was reassessed at 2220. She states her nausea has improved markedly. She does complain of epigastric pain. She does have history of reflux. We willtreat with GI cocktail. Patient was reassessed at 2241. Her epigastric pain has essentially resolved. Plan is to discharge to home. Nurse informed that she when patient was asleep she desaturated. She has never been tested for sleep apnea. Patient was instructed follow-up with her doctor for assessment ofsleep apnea. Discharge Plan Triage Chief Complaint: Nausea/Vomiting Other Complaint: Dizziness ED Provider: Taniya Bergo Dx/Rx/DC Orders Clinical Impression: Nausea alone, Gastric pain, Nocturnal hypoxia, Essential (primary) hypertension, HLD (hyperlipidemia), Ureteral stone with hydronephrosis, Kidney stone on right side Instructions: ED Vomiting (Adult) Prescriptions: No Action isosorbide mononitrate 60 mg tablet extended release 24 hr 60 mg PO DAILY Qty: 90 3RF olopatadine [Pataday] 0.2 % drops 1 drp OPHTHALMIC DAILY PreserVision AREDS-2 [id number] [id number]-mg capsule 1 tab PO BID Rx Instructions: administer with meals famotidine 20 mg tablet 20 mg PO BID metoprolol succinate 50 mg tablet extended release 24 hr 25 mg PO BID diltiazem HCl 120 mg capsule,extended release 24hr 120 mg PO BID melatonin 5 mg capsule 5 mg PO QHS PRN (Reason: Sleep) Systane Balance 0.6 % drops 1 drp ophthalmic (eye) DAILY PRN (Reason: Dry Eyes) azithromycin 250 mg tablet 250 mg PO DAILY furosemide 20 mg tablet 20 mg PO DAILY losartan 100 mg tablet 100 mg PO DAILY clonidine HCl 0.1 mg tablet 0.1 mg PO .COMPLEX Rx Instructions: 0.1 mg orally twice a day for SBP >160.; atorvastatin 40 MG tablet 40 mg PO QHS aspirin 81 MG tablet 81 mg PO DAILY@0800 clopidogrel 75 MG tablet 75 mg PO DAILY oxycodone-acetaminophen [Endocet] 5-325 mg tablet 1 tab PO Q6H PRN (Reason: pain) 3 Days Qty: 12 0RF ondansetron 4 mg tablet,disintegrating 4 mg PO Q8H PRN PRN (Reason: Nausea) Qty: 14 0RF nitroglycerin 0.4 mg tablet, sublingual 0.4 mg SUBLINGUAL Q5-15M PRN (Reason: chest pain) Qty: 25 3RF Rx Instructions: until response; do not exceed 3 doses per episode Primary Care Provider: Anita Sung Referrals: Anita Sung MD [Primary Care Provider] - 3-5 Days Activity Restrictions/Additional Instructions: 1. Contact your doctor for outpatient sleep study to evaluate for sleep apnea. 2. Eat a cracker or 2 before taking the oxycodone for your right flank pain Disposition Disposition: Home, Self Care What to do if you have Problems For any increased pain, shortness of breath, bleeding, nausea or vomiting, chestpain, or any unexpected problems, contact your Primary Care Provider. Call [facility] ([phone]) or report to the closest Emergency Room. Call 911 if necessary. 01/07/232246 <Electronically signed by Ta Berg MD> Cosigner Signature (if applicable): CC: Dr. 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 Continue daily artificial tears. Recheck asneeded. I have confirmed and edited as necessary the relevant ophthalmic history, ROS, and the neuro exam findings as obtained by others. I have seen and examined Kimberly Lee. I have discussed the case and the management of this patient's care with the Resident/Fellow, if applicable. I also have reviewed and agree with the assessment and plan as stated above and agree withall of its relevant components. 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 Continue daily artificial tears. Recheck asneeded. I have confirmed and edited as necessary the relevant ophthalmic history, ROS, and the neuro exam findings as obtained by others. I have seen and examined Kimberly Lee. I have discussed the case and the management of this patient's care with the Resident/Fellow, if applicable. I also have reviewed and agree with the assessment and plan as stated above and agree withall of its relevant components. Tommy Dotson II, MARKUS documented [facility]-[address] Martinez [facility] November 16, 2022 3:28pm Note Date/Time November 16, 2022 1 1:08am [facility] Medical Records Department [address] [place] [address] Emergency Department Summary 11/16/22 MR#: [id number] Acct: [id number] Name: KIMBERLY LEE Rep #:[id number] : 1940 82 From: Cody Martinez DO PCP: Dr. Anita Sung MD Status:REG ER Location: ED HPI History of Present Illness Chief Complaint: Hypertension Narrative Narrative: 82-year-old female with history of hypertension presenting for evaluation of generalized weakness. She also states he feels a little lightheaded. Her bloodpressures have been high outpatient. She states that her PCP recently changed her from losartan back to lisinopril because she reports it was not helping. She was also placed on Lasix due to lower extremity edema. She does not complain of shortness of breath. She states she was seen by Dr. Ok Swan recently due to carotid stenosis and he recommended having a renal artery ultrasound to look for renal artery stenosis which has not been performed yet. Patient was also referred to a Dr. Lamb. She has not made this appointment yet. She states that he is a blood pressure specialist. Patient has mild left-sided headache. [facility] Medical History Acute right hip pain Atherosclerotic heart disease of [place] coronary artery without angina pectoris Bilateral carotid artery stenosis Carotid bruit Celiac artery stenosis Diverticulosis Dysphagia Essential (primary) hypertension GERD (gastroesophageal reflux disease) Hemorrhoids History of bacterial pneumonia History of Helicobacter pylori infection HLD (hyperlipidemia) LVH (left ventricular hypertrophy) NSTEMI (non-ST elevated myocardial infarction) Osteoarthritis Renal cysts, acquired, bilateral Secondary pulmonary arterial hypertension Unstable angina Home Medications aspirin 81 mg tablet,delayed release 81 mg PO DAILY@0800 12/27/13 [History Last Taken 07/13/18] atorvastatin 40 mg tablet 40 mg PO QHS 12/27/13 [History Last Taken Unknown] clopidogrel 75 mg tablet 75 mg PO DAILY 01/12/17 [History Last Taken 07/13/18] isosorbide mononitrate 60 mg tablet,extended release 24 hr 60 mg PO DAILY #90 tabs 08/10/20 [Rx Last Taken Unknown] olopatadine 0.2 % eye drops (Pataday) 1 drp ophthalmic (eye) DAILY 08/29/20 [History Last Taken Unknown] vit C 250 mg-vit E 90 mg-zinc 40 mg-copper 1 [id number] capsule (PreserVision AREDS-2) 1 tab PO BID 08/29/20 [History Last Taken Unknown] nitroglycerin 0.4 mg sublingual tablet 0.4 mg sublingual Q5-15M PRN chest pain #25 tabs 09/25/20 [Rx Last Taken Unknown] famotidine 20 mg tablet 20 mg PO BID 11/24/20 [History Last Taken Unknown] metoprolol succinate 50 mg tablet,extended release 24 hr 25 mg PO BID 08/21/21 [History Last Taken Unknown] azithromycin 250 mg tablet 250 mg PO DAILY 09/03/22 [History Last Taken Unknown] diltiazem HCl 120 mg capsule,extended release 24 hr 120 mg PO BID 09/03/22 [History Last Taken Unknown] melatonin 5 mg capsule 5 mg PO QHS PRN 09/03/22 [History Last Taken Unknown] propylene glycol 0.6 % eye drops (Systane Balance) 1 drp ophthalmic (eye) DAILY PRN 09/03/22 [History Last Taken Unknown] clonidine HCl 0.1 mg tablet 0.1 mg PO .COMPLEX 11/11/22 [History Last Taken Unknown] furosemide 20 mg tablet 20 mg PO DAILY 11/11/22 [History Last Taken Unknown] losartan 100 mg tablet 100 mg PO DAILY 11/11/22 [History Last Taken Unknown] Allergy/AdvReac Type Severity Reaction Status Date / Time hydrocodone bitartrate AdvReac Other Verified 11/16/22 11:00 [From Vicodin] metronidazole AdvReac nausea Verified 11/16/22 11:00 Family History Father Cancer Surgical History History of bladder surgery History of coronary artery stent placement (12/07/12) History of esophagogastroduodenoscopy (EGD) History of excision of pilonidal cyst History of hysterectomy History of laparoscopic appendectomy History of laparoscopic cholecystectomy History of left heart catheterization (06/2018) History of tubal ligation historybladder surgery Hx of cataract extraction Social History Smoking Status: Former smoker alcohol intake: never substance use type: does not use caffeine: Yes what type of physical activity do you participate in: none frequency: does not exercise seatbelt use: always ROS ROS ED ROS Narrative Lightheadedness Constitutional Constitutional ED: Denies chills, fever(s) or sweats Eyes Eyes: Denies blurry vision or change in vision ENT ENT ED: Denies ear pain, rhinorrhea or sore throat Cardiovascular Cardiovascular: Denies chest pain, palpitations or racing heartbeat Respiratory/Chest Respiratory/Chest: Denies cough, dyspnea or sputum Gastrointestinal Gastrointestinal: Denies abdominal pain, constipation, diarrhea or vomiting Genitourinary Genitourinary ED: Denies dysuria, hematuria or urinary frequency Musculoskeletal Musculoskeletal: Denies arthralgias, myalgias or neck pain Integumentary Denies abscess, Abrasions or rash Neurologic Neurologic: Reports headache(s); Denies paresthesias or weakness Psychiatric Psychiatric: Denies anxiety, depression, suicidal ideation or suicidal thoughts Endocrine Endocrinology: Denies polydipsia or polyuria EXAM Physical Exam Const Vital Signs: 11/16/22 11:00 11/16/22 11:15 11/16/22 12:06 Temperature 96.8 F L Temperature Source Temporal Pulse Rate 64 Respiratory Rate 18 Respiratory Pattern Normal Blood Pressure 171/61 H Blood Pressure Mean 97 Pulse Ox 97 Oxygen Delivery Method Room Air Room Air 11/16/22 13:08 Temperature Temperature Source Pulse Rate 58 L Respiratory Rate 18 Respiratory Pattern Blood Pressure 172/64 H Blood Pressure Mean 100 Pulse Ox 97 Oxygen Delivery Method Room Air Positive well nourished General Appearance ED: NAD; Negative for pallor HEENT Reports moist mucous membranes Negative for trauma Eyes PERRL and EOMs intact bilaterally General Eye ED: Negative for pale conjunctiva or scleral icterus Neck no lymphadenopathy Chest Wall inspection of chest normal and palpation of chest normal Resp normal respiratory effort and clear to auscultation bilaterally Auscultation: Negative for rales, rhonchi or wheezes Cardio regular rate and regular rhythm GI normal to inspection, nondistended, normoactive bowel sounds Neuro oriented x3 and CN's II-XII intact bilaterally Sensorium / Orientation: alert Motor Exam: strength 5/5 throughout Psych mental status grossly normal Skin no rashes or lesions noted and no wounds General Skin Exam: Negative for jaundice or pallor MDM MDM MDM Narrative Medical decision making narrative: 82-year-old female presenting with mild lightheadedness and generalized weakness. Apparently her blood pressure has been elevated on outpatient basis. Differential at this point includes but is not limited to hypertensive urgency/emergency, intracranial hemorrhage, ACS, dehydration, electrolyte abnormality recently changed from losartan to lisinopril and added Lasix for blood pressure. She does not have any chest pain or shortness of breath. Because of her lightheadedness I did obtain an EKG which appears to be sinus bradycardia with a ventricular rate of 59 bpm without sign of ischemic change with occasional PVCs. CBC will be obtained to assess white blood cell count anddifferential. Renal function electrolytes will be obtained to the lightheadedness to check for dehydration, electrolyte imbalance, glucose and anion gap. High-sensitivity troponin to assess for cardiac etiology. BNP for the same reason. Chest x-ray will be obtained rule out a pulmonary source of her lightheadedness. Patient's current blood pressure is 171/61. CBC shows a white blood cell count of 6.2, hemoglobin 28, platelets 171. Renal function andelectrolytes are normal. BNP slightly elevated at 188.3. Chest x-ray was obtained as part of her cardiac work-up and on my interpretation shows no acute cardiopulmonary process. There is no evidence of CHF. Radiologist represents and agrees. Patient is also not hypoxic, tachypneic, tachycardic. CT brain wasordered to assess for her headache given the presence of hypertension and this is negative for acute intracranial process. Patient blood pressures are elevated today but I do not believe they need to be emergently lowered. I spoketo Dr. Sung who had stated that she has been seeing him for weeks to titrate her blood pressure down. She was given clonidine 0.1 mg to take twice a day forelevated blood pressures if needed. She is supposed to be still taking her lisinopril, but he states that she requested this because the losartan was not working. That she has been calling the office several times a day and appears to be anxious over the blood pressure being elevated. She was started on BuSparbut states this made her feel weird and she did not want to do it anymore. The patient was referred to a director of maintenance to help get her blood pressure under better control and she has an appointment on Friday. He recommended continuing her current medications as prescribed until she can make follow-up. This was discussed with her and she is amenable to this. She is discharged home in stable condition. Impression: 1. Hypertension 2. Headache 3. Lightheadedness Lab Data Labs: Laboratory Results - last 24 hr 11/16/22 11/16/22 11/16/22 12:06 12:06 12:06 WBC 6.2 RBC 4.52 Hgb 13.8 Hct 44.2 MCV 97.8 MCH 30.5 MCHC 31.2 L RDW Std Deviation 51.8 H RDW Coeff of Daphnie 14.4 Plt Count 171 MPV 11.3 Immature Gran % (Auto) 0.200 Neut % (Auto) 73.0 H Lymph % (Auto) 19.4 [place] % (Auto) 6.1 Eos % (Auto) 0.5 Baso % (Auto) 0.8 Absolute Neuts (auto) 4.5 Absolute Lymphs (auto) 1.20 Nucleated RBC % 0 Sodium 142 Potassium 3.5 Chloride 108 H Carbon Dioxide 30.0 Anion Gap 4 L BUN 19 H Creatinine 0.89 Estim Creat Clear Calc 38.04 Est GFR (MDRD) Af Amer 78 Est GFR (MDRD) Non-Af 64 BUN/Creatinine Ratio 21.3 H Glucose 135 H Calcium 9.2 Troponin I High Sens < 3 L B-Natriuretic Peptide 188.3 H Radiography Diagnostic Testing: Clinical Impression(s) from Imaging Studies Brain CT 11/16/22 11:56 IMPRESSION: Normal unenhanced CT scan of the brain. Electronically Signed: Steve Lawson MD at 13:38 EST , Chest X-Ray 11/16/22 12:19 IMPRESSION: Degenerative changes, as described above. No demonstrated acute cardiopulmonary process. Electronically Signed: Steve Lawson MD at 12:39 EST , Discharge Plan Triage Chief Complaint: Hypertension ED Provider: Cody Martinez Dx/Rx/DC Orders Instructions: ED Hypertension, Established Prescriptions: No Action isosorbide mononitrate 60 mg tablet extended release 24 hr 60 mg PO DAILY Qty: 90 3RF olopatadine [Pataday] 0.2 % drops 1 drp OPHTHALMIC DAILY PreserVision AREDS-2 [id number] rw-nmwa-[id number]-mg capsule 1 tab PO BID Rx Instructions: administer with meals famotidine 20 mg tablet 20 mg PO BID metoprolol succinate 50 mg tablet extended release 24 hr 25 mg PO BID diltiazem HCl 120 mg capsule,extended release 24hr 120 mg PO BID melatonin 5 mg capsule 5 mg PO QHS PRN Systane Balance 0.6 % drops 1 drp ophthalmic (eye) DAILY PRN azithromycin 250 mg tablet 250 mg PO DAILY furosemide 20 mg tablet 20 mg PO DAILY losartan 100 mg tablet 100 mg PO DAILY clonidine HCl 0.1 mg tablet 0.1 mg PO .COMPLEX Rx Instructions: 0.1 mg orally twice a day for SBP >160.; atorvastatin 40 MG tablet 40 mg PO QHS aspirin 81 MG tablet 81 mg PO DAILY@0800 clopidogrel 75 MG tablet 75 mg PO DAILY nitroglycerin 0.4 mg tablet, sublingual 0.4 mg SUBLINGUAL Q5-15M PRN (Reason: chest pain) Qty: 25 3RF Rx Instructions: until response; do not exceed 3 doses per episode Primary Care Provider: Anita Sung Referrals: Anita Sung MD [Primary Care Provider] - Disposition Disposition: Home, Self Care What to do if you have Problems For any increased pain, shortness of breath, bleeding, nausea or vomiting, chestpain, or any unexpected problems, contact your Primary Care Provider. Call [facility] ([phone]) or report to the closest Emergency Room. Call 911 if necessary. 11/16/22 1528 <Electronically signed by Cody Martinez DO> Cosigner Signature (if applicable): CC: Dr. Anita Sung MD ~ Signed [facility] Work Phone: 1(265) 119-959311-05-2022 History of Present illness Narrative* Lori Martinez PA-C - 08/31/2022 1:33 PM EDT This note was created using RemitProter. Subjective Kimberly Lee is a 82 year [...] cough is productive. Denies a fever. No morenita rtness of breath. Denies history of asthma. Former [...] Active TOPICAL November 10, 2019 2:57pm 11-10-2019 [facility] ([id number]) famotidine (PEPCID) 20 mg tablet vit A/vit [...] (Patient not taking: Reported on 05/20/2022 ) [place]-3 Fatty Acids-Vitamin E (FISH OIL) 1,000 mg [...] FRONTAL/LAT - COVID WITH FLUA+B, ROUTINE Lori R Athy, PA-C [facility] History of Present illness Narrative* Earline Velazco RT(R) - 08/31/2022 10:40 AM EDT Radiology Service Progress Note PATIENT NAME: Kimberly Lee DATE OF SERVICE: August 31, 2022 TIME: 10:57 AM PATIENT IDENTITY VERIFICATION COMPLETED USING TWO (2) IDENTIFIERS: Name and Date of confirmedby patient verbally. FALL SCREENING: Has the patient had 2 falls in the last year or 1 fall with injury or currently using an Ambulatory Assistive Device (Walker, Cane, Wheelchair, Crutches, etc.)? No PATIENT GENDER DATA: Female. status: : No status: NO. PATIENT RELEVANT IMPLANT DATA REVIEWED: Yes RADIOLOGY DEPARTMENT: General X-ray: Exam(s) Completed: Chest X-Ray PERIPHERAL IV DATA: Not applicable SIGNED BY: RT Sukhdeep(R) August 31, 2022 10:57 AM documented in this [facility] Miscellaneous Notes* Addendum Note - Van Dotson OD - 05/20/2022 10:52 AM EDT Addended by: VAN DOTSON on: 05/20/2022 10:52 AM Modules accepted: Orders documented in this encounterK[facility]-25-2022 Instructions* Patient Instructions* Van Dotson OD - 05/20/2022 10:45 AM EDT ASSESSMENT/PLAN: 1. Glaucoma suspect of both eyes - ICD9: 365.00, ICD10: H40.003 (primary diagnosis) Continue to monitor, stable at this time. 2. Nonexudative age-related macular degeneration, bilateral, early dry stage - ICD9: 362.51, ICD10:H35.3131 Continue to monitor. 3. 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 Hyperopia, bilateral - ICD9: 367.0, ICD10: H52.03 5. Regular astigmatism, bilateral - ICD9: 367.21, ICD10: H52.223 Glasses can be ordered as desired Return in one year, sooner if she has issues. documented in this [facility] History of Present illness Narrative* Van Dotson, OD - 05/20/2022 10:42 AM EDT ASSESSMENT/PLAN: 1. Glaucoma suspect of both eyes - ICD9: 365.00, ICD10: H40.003 (primary diagnosis) Continue to monitor, stable at this time. 2. Nonexudative age-related macular degeneration, bilateral, early dry stage - ICD9: 362.51, ICD10:H35.3131 Continue to monitor. 3. 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 Hyperopia, bilateral - ICD9: 367.0, ICD10: H52.03 5. Regular astigmatism, bilateral - ICD9: 367.21, ICD10: H52.223 Glasses can be ordered as desired Return in one year, sooner if she has issues. Van Dotson, OD I have confirmed and edited as necessary the relevant ophthalmic history, ROS, and the neuro exam findings as obtained by others. I have seen and examined this patient. documented in this encounterK[facility]-2021 NotePost Operative Note: Post-Procedure Diagnosis: 1. 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 Cataract Extraction with Intraocular Lens Implant Right Eye Surgeon: Miguel Brito MD Resident/Fellow/Other Journeyman Level Acoustic Analyst: None Estimated Blood Loss (mL): none Specimen: [...] Completion Last Updated: 05-Apr-2021 13:22 by Miguel Brito)[facility] 04-05-2021 NoteHistory & Physical Reviewed: I have reviewed the History and Physical [...] Completion Last Updated: 05-Apr-2021 12:21 by Miguel Brito)[facility] 01-19-2021 History of Past illness Narrative* Problem Noted Date Resolved Date Combined forms of age-related cataract, right ey e 01/19/2021 11/26/2021 Status post cataract extract ion and insertion of intraocular lens of left eye 04/23/2019 05/14/2021 Combined forms of age-related cataract of right eye 03/12/2019 11/26/2021 Presbyopia 05/13/2017 05/14/2021 documented as of this encounter (statuses as of 05/20/2022) [facility] History of Past illness Narrative* Problem Noted Date Resolved Date Combined forms of age-related cataract, right ey e 01/19/2021 11/26/2021 Status post cataract extract ion and insertion of intraocular lens of left eye 04/23/2019 05/14/2021 Combined forms of age-related cataract of right eye 03/12/2019 11/26/2021 Presbyopia 05/13/2017 05/14/2021 documented as of this encounter (statuses as of 08/31/2022) [facility] History of Past illness Narrative* Problem Noted Date Resolved Date Combined forms of age-related cataract, right ey e 01/19/2021 11/26/2021 Status post cataract extract ion and insertion of intraocular lens of left eye 04/23/2019 05/14/2021 Combined forms of age-related cataract of right eye 03/12/2019 11/26/2021 Presbyopia 05/13/2017 05/14/2021 documented as of this encounter (statuses as of 01/02/2023) [facility] History of Past illness Narrative* Problem Noted Date Diagnosed Date Resolved Date Combined forms of age-relate d cataract, right eye 01/19/2021 11/26/2021 Status post cataract extract ion and insertion of intraocular lens of left eye 04/23/2019 05/14/20 21 Combined forms of age-relate d cataract of right eye 03/12/2019 11/26/2021 Presbyopia 05/13/2017 05/14/2021 documented as of this encounter (statuses as of 05/28/2023) [facility] Evaluation note* Diagnosis Onset Date Resolution Status Essential (primary) hypertension chronic History of coronary artery stent placement December 072012 chronic HLD (hyperlipidemia) [facility] Work Phone: [phone]) 382-489802-11-2013 Evaluation note* Diagnosis Onset Date Resolution Status Essential (primary) hypertension chronic History of coronary artery stent placement December 072012 chronic HLD (hyperlipidemia) chronic Bilateral carotid artery stenosis chronic Essential (primary) hypertension [facility] Work Phone: Discharge summary Author Dr. Martinez [facility] January 07, 2023 1:02pm Note Date/Time January 07, 2023 11: 45am [facility] Medical Records Department [address] [place] [address] Emergency Department Summary 01/07/23 MR#: [id number] Acct: [id number] Name: KIMBERLY LEE Rep #:[id number] : 1940 82 From: Cody Martinez DO PCP: Dr. Anita Sung MD Status:REG ER Location: ED HPI History of Present Illness Chief Complaint: Back Narrative Narrative: 82-year-old female presenting with back pain. She states it started in her upper back in the middle the morning while she was rolled over. She states it was very achy and radiated to the chest. She became nauseous. She denies feeling lightheaded or dizzy. She does admit to being a little bit short of breath with it. She states the chest pain is now resolved and she has pain in the upper back still but now has pain in the lower right flank. Denies a history of kidney stones. No dysuria or hematuria. No maria fernanda abdominal pain. No history of trauma. No saddle anesthesia or paresthesia no loss of bladder orbowel control. PFSH PFSH Medical History Acute right hip pain Atherosclerotic heart disease of [place] coronary artery without angina pectoris Bilateral carotid artery stenosis Carotid bruit Celiac artery stenosis Diverticulosis Dysphagia Essential (primary) hypertension GERD (gastroesophageal reflux disease) Hemorrhoids History of bacterial pneumonia History of Helicobacter pylori infection HLD (hyperlipidemia) LVH (left ventricular hypertrophy) NSTEMI (non-ST elevated myocardial infarction) Osteoarthritis Renal cysts, acquired, bilateral Secondary pulmonary arterial hypertension Unstable angina Home Medications aspirin 81 mg tablet,delayed release 81 mg PO DAILY@0800 12/27/13 [History Last Taken 07/13/18] atorvastatin 40 mg tablet 40 mg PO QHS 12/27/13 [History Last Taken Unknown] clopidogrel 75 mg tablet 75 mg PO DAILY 01/12/17 [History Last Taken 07/13/18] isosorbide mononitrate 60 mg tablet,extended release 24 hr 60 mg PO DAILY #90 tabs 08/10/20 [Rx Last Taken Unknown] olopatadine 0.2 % eye drops (Pataday) 1 drp ophthalmic (eye) DAILY 08/29/20 [History Last Taken Unknown] vit C 250 mg-vit E 90 mg-zinc 40 mg-copper 1 [id number]-ulkgot capsule (PreserVision AREDS-2) 1 tab PO BID 08/29/20 [History Last Taken Unknown] nitroglycerin 0.4 mg sublingual tablet 0.4 mg sublingual Q5-15M PRN chest pain #25 tabs 09/25/20 [Rx Last Taken Unknown] famotidine 20 mg tablet 20 mg PO BID 11/24/20 [History Last Taken Unknown] metoprolol succinate 50 mg tablet,extended release 24 hr 25 mg PO BID 08/21/21 [History Last Taken Unknown] azithromycin 250 mg tablet 250 mg PO DAILY 09/03/22 [History Last Taken Unknown] diltiazem HCl 120 mg capsule,extended release 24 hr 120 mg PO BID 09/03/22 [History Last Taken Unknown] melatonin 5 mg capsule 5 mg PO QHS PRN Sleep 09/03/22 [History Last Taken Unknown] propylene glycol 0.6 % eye drops (Systane Balance) 1 drp ophthalmic (eye) DAILY PRN Dry Eyes 09/03/22 [History Last Taken Unknown] clonidine HCl 0.1 mg tablet 0.1 mg PO .COMPLEX 11/11/22 [History Last Taken Unknown] furosemide 20 mg tablet 20 mg PO DAILY 11/11/22 [History Last Taken Unknown] losartan 100 mg tablet 100 mg PO DAILY 11/11/22 [History Last Taken Unknown] ondansetron 4 mg disintegrating tablet 4 mg PO Q8H PRN PRN Nausea #14 tabs 01/07/23 [Rx Last Taken Unknown] oxycodone-acetaminophen 5 mg-325 mg tablet (Endocet) 1 tab PO Q6H PRN pain 3 days #12 tabs 01/07/23 [Rx Last Taken Unknown] Allergy/AdvReac Type Severity Reaction Status Date / Time hydrocodone bitartrate AdvReac Other Verified 01/07/23 10:24 [From Vicodin] metronidazole AdvReac nausea Verified 01/07/23 10:24 Family History Father Cancer Surgical History History of bladder surgery History of coronary artery stent placement (12/07/12) History of esophagogastroduodenoscopy (EGD) History of excision of pilonidal cyst History of hysterectomy History of laparoscopic appendectomy History of laparoscopic cholecystectomy History of left heart catheterization (06/2018) History of tubal ligation historybladder surgery Hx of cataract extraction Social History Smoking Status: Former smoker alcohol intake: never substance use type: does not use caffeine: Yes what type of physical activity do you participate in: none frequency: does not exercise seatbelt use: always ROS ROS ED Constitutional Constitutional ED: Denies chills or fever(s) Eyes Eyes: Denies change in vision ENT ENT ED: Denies rhinorrhea or sore throat Cardiovascular Cardiovascular: Reports chest pain Respiratory/Chest Respiratory/Chest: Reports dyspnea and dyspnea on exertion Genitourinary Genitourinary ED: Denies dysuria or hematuria Musculoskeletal Musculoskeletal: Reports back pain; Denies arthralgias or neck pain Integumentary Denies abscess Neurologic Neurologic: Denies headache(s) or paresthesias Psychiatric Psychiatric: Denies anxiety or depression EXAM Physical Exam Const Vital Signs: 01/07/23 10:25 Temperature 97.8 F Temperature Source Temporal Pulse Rate 67 Respiratory Rate 18 Blood Pressure 175/59 H Blood Pressure Mean 97 Pulse Ox 94 Oxygen Delivery Method Room Air Positive well nourished General Appearance ED: NAD HEENT Reports moist mucous membranes Eyes PERRL and EOMs intact bilaterally Resp normal respiratory effort and clear to auscultation bilaterally Auscultation: Negative for rales, rhonchi or wheezes Cardio regular rate and regular rhythm GI normal to inspection, nondistended, normoactive bowel sounds Back/Spine Back/Spine Narrative: Tenderness to palpation T4 paraspinal musculature on the right. There is also some tenderness in the right lower flank not adjacent to the spine. Extremity normal to inspection Neuro oriented x3 Sensorium / Orientation: alert Motor Exam: strength 5/5 throughout Psych mental status grossly normal Skin no rashes or lesions noted MDM MDM MDM Narrative Medical decision making narrative: Patient presenting with primarily back pain but states he had some chest pain earlier in the morning and it radiated from the back to the chest. She admits to some dyspnea and nausea when this episode occurred. Now she is only having back pain. Patient medicated with morphine, Zofran. Given that she is having chest pain differential includes but is not limited to ACS, PE, aortic dissection, pneumonia, pneumothorax, muscle strain, costochondritis. Patient iscurrently PERC negative for PE as a low suspicion. Is also not having sharp pleuritic pain. He does not have any symptoms of cough, fever, chills so I suspect this is not pneumonia. Patient has history of cardiac disease and HEARTscore of 4. We will obtain a cardiac work-up including a CBC for white blood cell count, hemoglobin, differential. BMP to assess renal function and electrolytes. High-sensitivity troponin, EKG, chest x-ray as well. Given the patient is having some lower flank pain in addition I will obtain a urinalysis to assess for hematuria versus infection. EKG on my interpretation shows normalsinus rhythm with a ventricular of 67 bpm without sign of ischemic change or dysrhythmia. CBC shows a normal white blood cell count of 6.7. Hemoglobin 15, hematocrit 46.3 platelet count 161. BMP shows a slight increase in her creatinine and some prerenal azotemia. Patient was given 500 cc of IV fluids. Potassium 3.4. Glucose 141 without anion gap. High-sensitivity troponin is less than 3. Chest x-ray on my interpretation shows no acute process. Radiologist are persistent agrees. Patient did have CT of the abdomen pelvis without contrast and there is 1 mm right proximal stones in the ureter. Patientpain well controlled after morphine. She states she has an allergy to Vicodin but cannot take oxycodone/Percocet at home. Urinalysis negative for infection. At this point I feel she is stable for discharge home. I counseled her to drinkplenty of fluids. High potassium foods. She can follow-up with urology. She is given a prescription for Percocet and Zofran. She was counseled to take a stool softener and/or laxative if constipation should occur. Return precautionswere discussed at length. Impression: 1. Chest pain 2. 1 mm right ureteral calculi 3. Nausea 4. Dehydration Lab Data Labs: Laboratory Results - last 24 hr 01/07/23 01/07/23 01/07/23 11:05 11:20 11:20 WBC 6.7 RBC 4.85 Hgb 15.0 Hct 46.3 MCV 95.5 MCH 30.9 MCHC 32.4 RDW Std Deviation 50.3 H RDW Coeff of Daphnie 14.2 Plt Count 161 MPV 11.0 Immature Gran % (Auto) 0.300 Neut % (Auto) 67.7 Lymph % (Auto) 23.9 [place] % (Auto) 6.8 Eos % (Auto) 0.4 Baso % (Auto) 0.9 Absolute Neuts (auto) 4.6 Absolute Lymphs (auto) 1.61 Nucleated RBC % 0 Sodium 140 Potassium 3.4 L Chloride 101 Carbon Dioxide 29.0 Anion Gap 10 BUN 26 H Creatinine 1.12 H Estim Creat Clear Calc 30.23 Est GFR (MDRD) Af Amer 60 Est GFR (MDRD) Non-Af 50 L BUN/Creatinine Ratio 23.2 H Glucose 141 H Calcium 9.5 Total Bilirubin 1.00 AST 20 ALT 29 Alkaline Phosphatase 100 Troponin I High Sens < 3 L Total Protein 7.7 Albumin 4.0 Globulin 3.7 Albumin/Globulin Ratio 1.1 Urine Color Yellow Urine Clarity Sl. Cloudy Urine pH 6.0 Ur Specific [place] 1.010 Urine Protein Negative Urine Glucose (UA) Normal Urine Ketones Negative Urine Occult Blood Negative Urine Nitrite Negative Urine Bilirubin Negative Urine Urobilinogen Normal Ur Leukocyte Esterase 25 H Urine RBC 0 SEEN Urine WBC 0-5 SEEN Ur Squamous Epith Cells 0-5 SEEN Urine Bacteria 0 SEEN Urine Mucus 0 SEEN Radiography Diagnostic Testing: Clinical Impression(s) from Imaging Studies Chest X-Ray 01/07/23 11:50 IMPRESSION: No acute pulmonary process Electronically Signed: Arsenio Mullen MD at 12:00 EDT Reading Location ID and State: [facility] / [place] , Service support , Abdomen/Pelvis CT 01/07/23 11:59 IMPRESSION: 1. Mild right hydronephrosis with a 1 mm stones seen in the right proximal ureter, consistent with recent passage of the stone 2. 3 mm calyceal stone is also seen in the midpole of the right kidney 3. Moderate to significant diverticulosis. No acute inflammation is seen Electronically Signed: Steve Lawson MD at 12:41 EDT , Discharge Plan Triage Chief Complaint: Back ED Provider: Cody Martinez Dx/Rx/DC Orders Instructions: ED Chest Pain, Noncardiac, ED Kidney Stone w/ Colic Prescriptions: New oxycodone-acetaminophen [Endocet] 5-325 mg tablet 1 tab PO Q6H PRN (Reason: pain) 3 Days Qty: 12 0RF ondansetron 4 mg tablet,disintegrating 4 mg PO Q8H PRN PRN (Reason: Nausea) Qty: 14 0RF No Action isosorbide mononitrate 60 mg tablet extended release 24 hr 60 mg PO DAILY Qty: 90 3RF olopatadine [Pataday] 0.2 % drops 1 drp OPHTHALMIC DAILY PreserVision AREDS-2 [id number] wg-vxni-ul-mg capsule 1 tab PO BID Rx Instructions: administer with meals famotidine 20 mg tablet 20 mg PO BID metoprolol succinate 50 mg tablet extended release 24 hr 25 mg PO BID diltiazem HCl 120 mg capsule,extended release 24hr 120 mg PO BID melatonin 5 mg capsule 5 mg PO QHS PRN (Reason: Sleep) Systane Balance 0.6 % drops 1 drp ophthalmic (eye) DAILY PRN (Reason: Dry Eyes) azithromycin 250 mg tablet 250 mg PO DAILY furosemide 20 mg tablet 20 mg PO DAILY losartan 100 mg tablet 100 mg PO DAILY clonidine HCl 0.1 mg tablet 0.1 mg PO .COMPLEX Rx Instructions: 0.1 mg orally twice a day for SBP >160.; atorvastatin 40 MG tablet 40 mg PO QHS aspirin 81 MG tablet 81 mg PO DAILY@0800 clopidogrel 75 MG tablet 75 mg PO DAILY nitroglycerin 0.4 mg tablet, sublingual 0.4 mg SUBLINGUAL Q5-15M PRN (Reason: chest pain) Qty: 25 3RF Rx Instructions: until response; do not exceed 3 doses per episode Primary Care Provider: Anita Sung Referrals: Anita Sung MD [Primary Care Provider] - Ora Linton MD [Med Staff - Active Staff] - As soon as possible Disposition Disposition: Home, Self Care What to do if you have Problems For any increased pain, shortness of breath, bleeding, nausea or vomiting, chestpain, or any unexpected problems, contact your Primary Care Provider. Call [facility] ([phone]) or report to the closest Emergency Room. Call 911 if necessary. 01/07/23 1302 <Electronically signed by Cody Martinez DO> Cosigner Signature (if applicable): CC: Dr. 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, bilateral Regular astigmatism, bilateral [facility] Diagnosis Acute URI- Primary Acute upper respiratory infections of unspecified site [facility]* Diagnosis 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 [facility] Diagnosis Onset Date Resolution Status Bilateral carotid artery stenosis chronic Essential (primary) hypertension [facility] Work Phone: Evaluation note* Diagnosis Macular RPE mottling- Primary Other [...] Regular astigmatism, bilateral [facility] Diagnosis Onset Date Resolution Status Atherosclerotic heart diseas e of [place] coronary artery without angina pectoris chronic Bilateral carotid artery stenosis chronic Essential (primary) hypertension chronic HLD (hyperlipidemia) chronic Secondary pulmonary arterial hypertension [facility] Work Phone: Evaluation note* Diagnosis 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 Allergic conjunctivitis of both eyes Other chronic allergic conjunctivitis [facility] Diagnosis Rhonchi Abnormal chest sounds [facility] Diagnosis 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 Bacterial conjunctivitis of both eyes [facility] Diagnosis 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, bilateral [facility]* Diagnosis Nonexudative age-related macular degeneration, bilateral, early dry stage- Primary Macular RPE mottling Other retinal disorders 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, 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 [facility] Diagnosis 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 [facility] Diagnosis Bacterial conjunctivitis of both eyes- Primary [facility] Diagnosis Trichiasis of both lower eyelids- 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, unspecified Macular RPE mottling Other retinal disorders Nonexudative age-related macular degeneration, bilateral, early dry stage [facility]* Diagnosis Onset Date Resolution Status Admit Date PAF (paroxysmal atrial fibrillation) acute April 22, 2025 10:17am Atherosclerotic heart diseas e of [place] coronary artery without angina pectoris chronic April 22, 2025 10:17am Bilateral carotid artery stenosis ch ronic April 22, 2025 10:17am Essential (primary) hypertension chr onic April 22, 2025 10:17am HLD (hyperlipidemia) chronic April 22, 2025 10:17am Secondary pulmonary arterial hypertension chronic April 22, 2025 10:17am [facility] Work Phone: Hospital Discharge instructions Additional Instructions 1. Contact your doctor for outpatient sleep study to evaluate for sleep apnea. 2. Eat a cracker or 2 before taking the oxycodone for your right flank pain [facility] Work Phone: Hospital Discharge instructions Additional Instructions Discontinue taking Pepcid, famotidine.[facility] Work Phone: Reason for referral (narrative)No reason for referral information [facility] Work Phone: Summary Purpose Family History Relationship Condition Age at Onset Recorded Date/T ko father Malignant neoplasm Unknown Advance Directives Documents on File Type Date Recorded Patient Front End Architect Expl anation Advance Directive(s) 12/10/2016 11:25 AM Advance Directive(s) 12/05/2016 1:09 PM Advance Directive Response Recorded Date/ Time Advance Directives Yes June 8:28am Living Will No October 10 12:43pm Power of Criminal Justice Professor No October 10, 2020 12:43pm Advance Directive Response Recorded Date/ Time Name of Medical Power of Criminal Justice Professor Prabhjot Lee November 16, 2022 11:15am Advance Directives Yes June 8:28am Living Will Yes November 16 11:15am Power of Criminal Justice Professor Yes November 16, 2022 11:15am Advance Directive Response Recorded Date/ Time Name of Medical Power of Criminal Justice Professor Prabhjot Lee November 16, 2022 12:15pm Advance Directives Yes June 9:28am Living Will No January 07, 2023 11:46am Power of Criminal Justice Professor No January 07 11:46am Advance Directive Response Recorded Date/ Time Name of Medical Power of Criminal Justice Professor Prabhjot Lee November 16, 2022 12:15pm Advance Directives Yes June 9:28am Living Will No January 07, 2023 9:24pm Power of Criminal Justice Professor No January 07 9:24pm Advance Directive Response Recorded Date/ Time Name of Medical Power of Criminal Justice Professor Prabhjot Lee November 16, 2022 12:15pm Advance Directives Yes June 9:28am Living Will No February 21, 2023 1:16pm Power of Criminal Justice Professor No February 21 1:16pm Advance Directive Response Recorded Date/ Time Advance Directives Yes June 8:28am Living Will No February 21, 2023 12:16pm Power of Criminal Justice Professor No February 21 12:16pm Advance Directive Response Recorded Date/ Time Advance Directives Yes June 9:28am Advance Directive Response Recorded Date/ Time Do you have a Healthcare Power of Criminal Justice Professor? Yes June 28, 2025 4:21pm Advance Directives Yes June 9:28am Medications Administered Section Inactive Administered Medications - [...] the event of a Fluress shortage, administer Stanford-Fluor 1 drop into both eyes as directed [...] Indicated Resolved Time COVID-19 Rule-Out 08/31/2022 08/31/2022 Chief Complaint and Reason for Visit Chief Complaint 1 Y FU CAROTID STENOSIS Reason for Visit Essential (primary) hypertension History of coronary artery stent placement HLD (hyperlipidemia) Chief Complaint 1 Y FU CAROTID STENOSIS F/U carotid results HTN Reason for Visit Essential (primary) hypertension History of coronary artery stent placement HLD (hyperlipidemia) Bilateral carotid artery stenosis Essential (primary) hypertension Chief Complaint CAROTID STENOSIS F/U carotid results HTN Celiac artery compression syndrome BACK PAIN Reason for Visit Bilateral carotid ar milena stenosis Essential (primary) hypertension Chief Complaint CAROTID STENOSIS F/U carotid results HTN Celiac artery compression syndrome BACK PAIN nausea/vomitting, dizziness Reason for Visit Bilateral carotid ar milena stenosis Essential (primary) hypertension Chief Complaint F/U carotid results HTN Celiac artery compression syndrome BACK PAIN nausea/vomitting, dizziness CHEST PAIN Reason for Visit Bilateral carotid ar milena stenosis Essential (primary) hypertension Chief Complaint F/U carotid results HTN Celiac artery compression syndrome BACK PAIN nausea/vomitting, dizziness CHEST PAIN URETERAL CALCULUS Reason for Visit Bilateral carotid ar milena stenosis Essential (primary) hypertension Chief Complaint 1 Y FU Occlusion and stenosis of bilateral carotid arteri Reason for Visit Atherosclerotic hear t disease of [place] coronary artery without angina pectoris Bilateral carotid artery stenosis Essential (primary) hypertension HLD (hyperlipidemia) Secondary pulmonary arterial hypertension Chief Complaint Admit Date 18 M FU/S/P POM 03/07April 22, 2025 10 :17am Reason for Visit Admit Date PAF (paroxysmal atrial fibrillation) Mar 10:17am Atherosclerotic heart diseas e of [place] coronary artery without angina pectoris April 22, 2025 10:17am Bilateral carotid artery stenosis March 282024 10:17am Essential (primary) hypertension April 222024 10:17am HLD (hyperlipidemia) April 22, 2025 10: 17am Secondary pulmonary arterial hypertensio n April 22, 2025 10:17am Chief Complaint Admit Date 18 M FU/S/P POM 03/07April 22, 2025 10 :17am S/P POMERENE 06/22June 24, 2025 1: 43pm Reason for Visit Admit Date PAF (paroxysmal atrial fibrillation) Mar 10:17am Atherosclerotic heart diseas e of [place] coronary artery without angina pectoris April 22, 2025 10:17am Bilateral carotid artery stenosis March 282024 10:17am Essential (primary) hypertension April 222024 10:17am HLD (hyperlipidemia) April 22, 2025 10: 17am Secondary pulmonary arterial hypertensio n April 22, 2025 10:17am PAF (paroxysmal atrial fibrillation) May 1:43pm Atherosclerotic heart diseas e of [place] coronary artery without angina pectoris June 24, 2025 1:43pm Bilateral carotid artery stenosis June 24, 2025 1:43pm Essential (primary) hypertension June 24, 2025 1:43pm HLD (hyperlipidemia) June 24, 2025 1 :43pm Secondary pulmonary arterial hypertensio n June 24, 2025 1:43pm Chest pain June 24, 2025 1: 43pm Chief Complaint Admit Date 18 M FU/S/P POM 03/07April 22, 2025 10 :17am S/P POMERENE 06/22June 24, 2025 1: 43pm Chest pain June 28, 2025 8:34pm CHEST PAINB June 28, 2025 8:36pm Reason for Visit Admit Date PAF (paroxysmal atrial fibrillation) Mar 10:17am Atherosclerotic heart diseas e of [place] coronary artery without angina pectoris April 22, 2025 10:17am Bilateral carotid artery stenosis March 282024 10:17am Essential (primary) hypertension April 222024 10:17am HLD (hyperlipidemia) April 22, 2025 10: 17am Secondary pulmonary arterial hypertensio n April 22, 2025 10:17am PAF (paroxysmal atrial fibrillation) May 1:43pm Atherosclerotic heart diseas e of [place] coronary artery without angina pectoris June 24, 2025 1:43pm Bilateral carotid artery stenosis June 24, 2025 1:43pm Essential (primary) hypertension June 24, 2025 1:43pm HLD (hyperlipidemia) June 24, 2025 1 :43pm Secondary pulmonary arterial hypertensio n June 24, 2025 1:43pm Chest pain June 24, 2025 1: 43pm Chest pain June 28, 2025 8:36pm Additional Source Comments INFORMATION SOURCE (unrecogn ized section and content) DATE CREATED AUTHOR 07/23/2018 [facility] ([place]) DATE CREATED AUTHOR AUTHOR'S ORGANIZ ATION 04/06/2021 [facility] DATE CREATED AUTHOR AUTHOR'S ORGANIZ ATION 04/12/2021 [facility] DATE CREATED AUTHOR AUTHOR'S ORGANIZ ATION 07/29/2021 [facility] DATE CREATED AUTHOR AUTHOR'S ORGANIZ ATION 03/25/2025 [facility] DATE CREATED AUTHOR AUTHOR'S ORGANIZ ATION 06/04/2025 [facility] DATE CREATED AUTHOR AUTHOR'S ORGANIZ ATION 06/24/2025 [facility] DATE CREATED AUTHOR AUTHOR'S ORGANIZ ATION 06/25/2025 [facility] DATE CREATED AUTHOR AUTHOR'S ORGANIZ ATION 06/26/2025 [facility] Source Comments (unrecognize d section and content) In the event this informatio n is protected by the Federal Confidentiality of Alcohol and Drug Abuse Patient Records regulations: The Federal rules restrict any use of the information to criminally investigate or prosecute any alcohol or drug abuse patient.[facility] the event this information is protected by the Federal Confidentiality of Alcohol and Drug Abuse Patient Records regulations: The Federal rules restrict any use of the information to criminally investigate or prosecute any alcohol or drug abuse patient.[facility] the event this information is protected by the Federal Confidentiality of Alcohol and Drug Abuse Patient Records regulations: The Federal rules restrict any use of the information to criminally investigate or prosecute any alcohol or drug abuse patient.[facility] the event this information is protected by the Federal Confidentiality of Alcohol and Drug Abuse Patient Records regulations: The Federal rules restrict any use of the information to criminally investigate or prosecute any alcohol or drug abuse patient.[facility] the event this information is protected by the Federal Confidentiality of Alcohol and Drug Abuse Patient Records regulations: The Federal rules restrict any use of the information to criminally investigate or prosecute any alcohol or drug abuse patient.[facility] the event this information is protected by the Federal Confidentiality of Alcohol and Drug Abuse Patient Records regulations: The Federal rules restrict any use of the information to criminally investigate or prosecute any alcohol or drug abuse patient.[facility] the event this information is protected by the Federal Confidentiality of Alcohol and Drug Abuse Patient Records regulations: The Federal rules restrict any use of the information to criminally investigate or prosecute any alcohol or drug abuse patient.[facility] the event this information is protected by the Federal Confidentiality of Alcohol and Drug Abuse Patient Records regulations: The Federal rules restrict any use of the information to criminally investigate or prosecute any alcohol or drug abuse patient.[facility] the event this information is protected by the Federal Confidentiality of Alcohol and Drug Abuse Patient Records regulations: The Federal rules restrict any use of the information to criminally investigate or prosecute any alcohol or drug abuse patient.[facility] the event this information is protected by the Federal Confidentiality of Alcohol and Drug Abuse Patient Records regulations: The Federal rules restrict any use of the information to criminally investigate or prosecute any alcohol or drug abuse patient.[facility] the event this information is protected by the Federal Confidentiality of Alcohol and Drug Abuse Patient Records regulations: The Federal rules restrict any use of the information to criminally investigate or prosecute any alcohol or drug abuse patient.[facility] the event this information is protected by the Federal Confidentiality of Alcohol and Drug Abuse Patient Records regulations: The Federal rules restrict any use of the information to criminally investigate or prosecute any alcohol or drug abuse patient.[facility] Reason for Visit (unrecogniz ed section and content) Reason Comments Glaucoma Follow Up OCT/VF 24-2 Macular Degeneration Follow Up Reason Comments Covid Test Result Reason Comments Watery Eyes Both Eyes Foreign Body Sensation Reason Comments Glaucoma Suspect Evaluation Macular Degeneration Evaluation Reason Comments Foreign Body Sensation Left eye Eye Discharge Left Eye Watery Eyes Left Eye Reason Comments Ingrown Eyelash(es) Both Upper Lids Reason Comments Conjunctivitis Follow Up Reason Comments Dry Eye(s) Both Eyes Follow up Reason Comments Foreign Body Sensation Both eyes Reason Comments Dry Eye(s) Both Eyes Eyes matting in the mornings Foreign Body Sensation Both eyes Reason Comments Retinal Evaluation Trichiasis Evaluation Scratching eyes x 1 week [facility] Care Teams (unrecognized sec tion and content) Smutter Relationship Specialty Start Date End Date Anita Sung MD PCP - General Internal Medicine 09/08/18 Smutter Relationship Specialty Start Date End Date Anita Sung MD PCP - General Internal Medicine 09/08/18 Team Status: Active Member Role Status Dates Dr. Anita Sung MD Family Provider Active Dr. Anita Sung MD Primary Care Provider Active Team Status: Inactive Member Role Status Dates Dr. Anita Sung MD Primary Care Provider, Referrin g Provider Active Dr. Parminder Tam MD Attending Provider Active Team Status: Active Member Role Status Dates Dr. Anita Sung MD Primary Care Provider Active Dr. Ok Swan MD Attending Provider Active Dr. Marycruz Campo DO Referring Provider Active Team Status: Inactive Member Role Status Dates Dr. Anita Sung MD Primary Care Provider, Referrin g Provider Active Dr. Ok Swan MD Attending Provider Active Team Status: Inactive Member Role Status Dates Dr. Anita Sung MD Primary Care Provider Active Dr. Ok Swan MD Attending Provider, Referring Provider Active Team Status: Inactive Member Role Status Dates Dr. Anita Sung MD Primary Care Provider Active Dr. Cody Martinez DO Emergency Provider Active Smutter Relationship Specialty Start Date End Date Anita Sung MD PCP - General Internal Medicine 09/08/18 Team Status: Active Member Role Status Dates Dr. Anita Sung MD Primary Care Provider Active Dr. Ok Swan MD Attending Provider, Referring Provider Active Team Status: Inactive Member Role Status Dates Dr. Anita Sung MD Primary Care Provider Active Dr. Ok Swan MD Attending Provider Active Team Status: Inactive Member Role Status Dates Dr. Anita Sung MD Primary Care Provider Active Dr. Cody Martinez DO Attending Provider, Emergency Provider Active Team Status: Inactive Member Role Status Dates Dr. Anita Sung MD Primary Care Provider Active Dr. Ta Berg MD Emergency Provider Active Team Status: Inactive Member Role Status Dates Dr. Anita Sung MD Primary Care Provider Active Dr. Ta Berg MD Attending Provider, Emergency Provi massimo Active Team Status: Inactive Member Role Status Dates Dr. Anita Sung MD Primary Care Provider Active Dr. Ta Berg MD Referring Provider, Emergency Provi massimo Active Team Status: Inactive Member Role Status Dates Dr. Anita Sung MD Primary Care Provider Active Dr. Ora Linton MD Attending Provider, Referring P kate Active Team Status: Inactive Member Role Status Dates Dr. Anita Sung MD Primary Care Provider Active Dr. Ta Berg MD Attending Provider, Referring Provider, Emergency Provider Active Smutter Relationship Specialty Start Date End Date Anita Sung MD PCP - General Internal Medicine 09/08/18 Team Status: Inactive Member Role Status Dates Dr. Anita Sung MD Primary Care Provider, Referrin g Provider Active Savana SANCHEZ, PA Attending Provider Active Smutter Relationship Specialty Start Date End Date Anita Sung MD PCP - General Internal Medicine 09/08/18 Smutter Relationship Specialty Start Date End Date Anita Sung MD PCP - General Internal Medicine 09/08/18 Smutter Relationship Specialty Start Date End Date Anita Sung MD PCP - General Internal Medicine 09/08/18 Smutter Relationship Specialty Start Date End Date Anita Sung MD PCP - General Internal Medicine 09/08/18 Smutter Relationship Specialty Start Date End Date Anita Sung MD PCP - General Internal Medicine 09/08/18 Team Status: Active Member Role/Relationship Status Dates Dr. Anita Sung MD Family Provider Active Dr. Anita Sung MD Primary Care Provider Active Team Status: Inactive Member Role/Relationship Status Dates Dr. Anita Sung MD Primary Care Provider Active Start: April 22, 2025 End: April 22, 2025 Dr. Anita Sung MD Referring Provider Active Start: April 22, 2025 End: April 22, 2025 Savana Goldsmith PA, PA Attending Provider Active Start: April 22, 2025 End: April 22, 2025 Team Status: Inactive Member Role/Relationship Status Dates Dr. Anita Sung MD Primary Care Provider Active Start: April 26, 2025 Dr. Ora Linton MD Attending Provider Active Start: April 26, 2025 Team Status: Inactive Member Role/Relationship Status Dates Dr. Anita Sung MD Primary Care Provider Active Start: June 24, 2025 End: June 24, 2025 Dr. Anita Sung MD Referring Provider Active Start: June 24, 2025 End: June 24, 2025 Savana Goldsmith PA, PA Attending Provider Active Start: June 24, 2025 End: June 24, 2025 Team Status: Active Member Role/Relationship Status Dates No Primary Care Physician Primary Care Provider Active Team Status: Active Member Role/Relationship Status Dates Dr. Camden Hernandez MD Emergency Provider Active Start: June 28, 2025 No Primary Care Physician Primary Care Provider Active Start: June 28, 2025 Dr. Mary Gregory MD Attending Provider Active Start: June 28, 2025 Team Status: Active Member Role/Relationship Status Dates Dr. Camden Hernandez MD Emergency Provider Active Start: June 28, 2025 No Primary Care Physician Primary Care Provider Active Start: June 28, 2025 Dr. Mary Gregory MD Admit Provider Active St art: June 28, 2025 Dr. Mary Gregory MD Attending Provider Active Start: June 28, 2025 Goals (unrecognized section and content) Goals may be documented in a n alternate sectionGoals may be documented in an alternate sectionGoals may be documented in an alternate sectionGoals may be documented in an alternate sectionGoals may be documented in an alternate sectionGoals may be documented in an alternate sectionGoals may be documented in an alternate sectionGoals may be documented in an alternate sectionGoals may be documented in an alternate sectionGoals may be documented in an alternate section FOR RECORDS PERTAINING TO PATIENTS WHO ARE [...] BE BASED ON THE PRIMARY CLINICAL RECORDS. [facility]. provides no warranty or guarantee of the accuracy or completeness of information in this document."
[2025-06-29] VITALS (8 sets, daily range): BP systolic 136–157; BP diastolic 64–75; PULSE 64–68; RESP 16–18; TEMP 36.4–36.6; O2SAT 88–99; BMI 27.6
[2025-06-29 04:55] LABS: Hematocrit 33.6 % (37-47); Hemoglobin 10.8 g/dL (12.0-15.0); Immature Granulocytes Count 0.010 X10^3/uL (0.0-0.0); Mean Corp Hgb Conc 32.1 g/dL (32-36); Mean Corpuscular Volume 92.1 fL (81-99); Mean Platelet Vol. 11.2 fl (6.2-12.0); NRBC Flagged by Analyzer 0 % (0-5); Platelet Count 112 K/mm3 (150-450); RBC Distribution Width CV 14.8 % (11.6-14.6); RBC Distribution Width SD 50.2 fl (35.1-43.9); Red Blood Count 3.65 M/mm3 (4.2-5.4); White Blood Count 3.6 K/mm3 (4.4-11.0)
[2025-06-29 05:32] LABS: AST(SGOT) 33 U/L (<=31); Alanine Aminotransfer ALT/SGPT 31 U/L (<=34); Albumin, Serum 3.1 g/dL (3.4-4.8); Alkaline Phosphatase 102 U/L (35-104); Anion Gap 7 (5-15); BUN 16 mg/dL (4-19); BUN/Creat Ratio 18.8 RATIO (10-20); Calcium,Total 8.7 mg/dL (7.6-11.0); Carbon Dioxide 27.1 mmol/L (21.0-32.0); Chloride 106 mmol/L (98-108); Cholesterol 78 mg/dL (<=200); Estimated Creatinine Clearance 41.21 ml/min (50-250); Globulin 1.6 g/dL (2.2-4.2); Glucose 127 mg/dL (70-99); Low Density Lipoprotein Calc. 24 mg/dL; Potassium 3.7 mmol/L (3.3-5.1); Triglycerides 73 mg/dL; Very Low Density Lipoprotein 15 mg/dL (5-40); cholesterol:hdl ratio screen 1.96
--- NOTE | 2025-06-29 05:55 | EKG12_ITS ---
Test Reason : AM EKG Blood Pressure : */* mmHG Vent. Rate : 61 BPM Atrial Rate : 61 BPM P-R Int : 128 ms QRS Dur : 72 ms QT Int : 418 ms P-R-T Axes : 55 12 13 degrees QTcB Int : 420 ms Sinus rhythm with Otherwise normal ECG Confirmed by Chang Bean ([id number]), advertising editor LINA ALEJANDRO ([id number]) on 06/29/2025 8:13:16 AM Referred By: Confirmed By: Chang Bean
--- NOTE | 2025-06-29 07:45 | PN.HOSP_ITS ---
Reason for Visit Chief Complaint: Chest pain. Subjective Subjective Patient is an 85-year-old lady with history of coronary artery disease with previous PCI presented with chest pain Objective Data Objective Data Vital Signs: Vital Signs Temp Pulse Resp BP Pulse Ox O2 Del Method O2 Flow Rate 97.8 F 64 16 157/75 H 95 Nasal Cannula 2 06/29/25 05:40 06/29/25 05:40 06/29/25 05:40 06/29/25 05:40 06/29/25 05:40 06/29/25 05:40 06/29/25 05:40 Oxygen Flow Rate (L/min) 2 Oxygen Delivery Method Nasal Cannula Weight: 61.9 kg Body Mass Index (BMI) 27.6 Intake & Output: Intake and Output for Last 24 Hours 06/27/25 06/28/25 06/29/25 23:59 23:59 23:59 Intake Total 500 / 500 Balance 500 / 500 Lab / Micro Data 06/29/25 04:48 06/29/25 04:48 Labs: Laboratory Results - last 24 hr 06/28/25 17:21: WBC 4.1 L, RBC 4.29, Hgb 12.6, Hct 39.5, MCV 92.1, MCH 29.4, M CHC 31.9 L, RDW Std Deviation 50.8 H, RDW Coeff of Daphnie 15.0 H, Plt Count 137 L, MPV 11.1, Immature Gran % (Auto) 0.200, Neut % (Auto) 61.4, Lymph % (Auto) 26.7, [place] % (Auto) 9.0, Eos % (Auto) 1.2, Baso % (Auto) 1.5 H, Absolute Neuts (auto) 2.5, Absolute Lymphs (auto) 1.09, Nucleated RBC % 0, PT 16.6 H, INR 1.3, Sodium 141, Potassium 3.5, Chloride 104, Carbon Dioxide 27.2, Anion Gap 11, BUN 16, Creatinine 0.98, Estim Creat Clear Calc 37.52 L, Est GFR (MDRD) Non-Af 57 L, BUN/Creatinine Ratio 16.7, Glucose 119 H, Calcium 9.3, Troponin T High Sens 30 H 06/28/25 19:24: Troponin T Hi Sens 2 Hr 32 H 06/28/25 21:12: Magnesium 2.1, Troponin T Hi Sens 4Hr 37 H 06/29/25 04:48: WBC 3.6 L, RBC 3.65 L, Hgb 10.8 L, Hct 33.6 L, MCV 92.1, MCH 29.6, MCHC 32.1, RDW Std Deviation 50.2 H, RDW Coeff of Daphnie 14.8 H, Plt Count 112 L, MPV 11.2, Immature Gran % (Auto) 0.300, Neut % (Auto) 68.1, Lymph % (Auto) 22.3, [place] % (Auto) 7.7, Eos % (Auto) 0.8, Baso % (Auto) 0.8, Absolute Neuts (auto) 2.5, Absolute Lymphs (auto) 0.81 L, Nucleated RBC % 0, Sodium 140, Potassium 3.7, Chloride 106, Carbon Dioxide 27.1, Anion Gap 7, BUN 16, Creatinine 0.85, Estim Creat Clear Calc 41.21 L, Est GFR (MDRD) Non-Af 68, BUN/Creatinine Ratio 18.8, Glucose 127 H, Calcium 8.7, Total Bilirubin 0.73, AST 33 H, ALT 31, Alkaline Phosphatase 102, Total Protein 4.7 L, Albumin 3.1 L, G lobulin 1.6 L, Albumin/Globulin Ratio 1.9, Triglycerides 73, Cholesterol 78, LDL Cholesterol, Calc 24, VLDL Cholesterol 15, HDL Cholesterol 40, Cholesterol/HDL Ratio 1.96 Radiography Diagnostic Testing: Radiology Impression Chest X-Ray 06/28/25 17:20 IMPRESSION: Mild pulmonary vascular congestion and interstitial edema. No focal consolidation. Mild cardiomegaly, stable. Reading Location: [facility] Rhythm Strip Rhythm Strip: Sinus Rhythm Rate: 80 Ectopy: PVC(s) (at times, frequent; groups of no more than 2) Physical Exam Narrative GENERAL: cooperative HEENT: Atraumatic; normocephalic EYES; Anicteric, Normal Conjunctiva NECK; supple, normal thyroid, RESPIRATORY: Diminished to auscultation CARDIOVASCULAR: Regular S1 S2, GI: soft, normoactive bowel sounds, : No Renal angle tenderness; EXTREMITIES: No edema, no clubbing, MUSCULOSKELETAL: no muscle wasting NEURO: Awake; no lateralizing signs. SKIN: No Rash PSYCH; Flat affect Assessment & Plan Assessment/Plan (1) Chest pain: PLAN: Plan Patient is an 85-year-old lady with history of coronary artery disease with previous PCI presented with chest pain 1. Chest pain ? In the patient with significant high risk. Was placed on a monitored bed CA was ruled out with serial cardiac enzymes. Nuclear stress test was ordered to complete patient evaluation 2. Acute hypertensive emergency ? Home medications continued hydralazine added for systolic blood pressure greater than 160 3. Coronary artery disease ? With previous PCI to an LAD and distal RCA lesion. Patient remains on guideline directed medical therapy 4. Paroxysmal atrial fibrillation ? Rate controlled on metoprolol and systemic anticoagulation with apixaban 5. Dyslipidemia ?Patient is on statin therapy, continued at home dose 6. Peripheral arterial disease ? With history of renal artery stenosis celiac artery stenosis as well as carotid artery disease 7. Thrombocytopenia ? Appears to be chronic will monitor with CBC with differential 8. CKD stage III ruled out 9. DVT prophylaxis ? On apixaban Charges/Coding Visit Charges Inpatient E&M: 21890 Subs Hosp L2
[2025-06-29] MEDS: Metoprolol(XL)Succ 25 MG Tablet PO (09:48)
[2025-06-29] MEDS: Magnesium Chloride 64 MG Delay Rel.Tablet 128 MG PO (09:48)
[2025-06-29] MEDS: 0.9% Saline Lock 10 ML Syringe IV (10:15)
--- NOTE | 2025-06-29 12:15 | STRESSREP ---
Stress Test Report Date: 06/29/2025 Procedure: Pharmacologic stress nuclear imaging study Indications: Chest pain Consent: Per the patient Procedure: The patient underwent pharmacologic (Regadenoson 0.4mg ) evaluation with a peak heart rate of 89 beats per minute (64%predicted maximal heart rate) and a peak blood pressure of 152/70 mmHg. The baseline ECG demonstrated sinus rhythm. The peak pharmacologic ECG did not show any ischemic changes. Occasional PVCs noted with pharmacological infusion and in recovery. There was no complaint of chest discomfort during pharmacologic infusion or recovery. The patient was injected with 12.0 millicuries of technetium 99m Cardiolite and subsequently rest SPECT Cardiolite nuclear imaging was obtained in the horizontal long, vertical long, and short axis views. The patient underwent pharmacologic (Regadenoson) evaluation. The patient was injected with 34.8 millicuries of technetium 99m Cardiolite and subsequently stress SPECT Cardiolite nuclear imaging was obtained in the horizontal long, vertical long, and short axis views. A gated Cardiolite study at peak stress was obtained. The examination was stopped secondary to completion of protocol. Rest and stress SPECT Cardiolite nuclear imaging status post realignment, normalization, and attenuation correction demonstrate no fixed or reversible perfusion defects. There is end systolic thickening and brightening. The gated Cardiolite study demonstrates myocardial thickening and inward wall motion. The reported LVEF is 76%. Impression: 1. Pharmacologic (Regadenoson) evaluation 2. Peak pharmacologic ECG with no ischemic changes. 3. Occasional PVCs with pharmacologic infusion and in recovery. 5. Rest and stress SPECT Cardiolite nuclear imaging demonstrate relative uniform tracer uptake and myocardial perfusion appearing within normal limits. 6. The gated Cardiolite study reports an LVEF of 76%. This note was generated with [employer] software. It may contain incorrect words, spelling, and punctuation that were not noted in checking the note before signing.
--- NOTE | 2025-06-29 13:27 | PCM.DC.SUM ---
Providers Date of Admission: 06/28/25 Date of Discharge: 06/29/25 Primary Care Physician: Joanna Primary Care Phys Reason For Visit: CHEST PAINB Diagnosis Discharge Diagnosis (1) Chest pain: Status: Acute Code(s): R07.9 - Chest pain, unspecified Plan Patient is an 85-year-old lady with history of coronary artery disease with previous PCI presented with chest pain 1. Chest pain ? In the patient with significant high risk. Was placed on a monitored bed MO was ruled out with serial cardiac enzymes. Nuclear stress test was ordered to complete patient evaluation - stress test was negative 2. Acute hypertensive emergency ? Home medications continued hydralazine added for systolic blood pressure greater than 160 3. Coronary artery disease ? With previous PCI to an LAD and distal RCA lesion. Patient remains on guideline directed medical therapy 4. Paroxysmal atrial fibrillation ? Rate controlled on metoprolol and systemic anticoagulation with apixaban 5. Dyslipidemia ?Patient is on statin therapy, continued at home dose 6. Peripheral arterial disease ? With history of renal artery stenosis celiac artery stenosis as well as carotid artery disease 7. Thrombocytopenia ? Appears to be chronic will monitor with CBC with differential 8. CKD stage III ruled out 9. DVT prophylaxis ? On apixaban Medications at Discharge Home Medications aspirin 81 mg tablet,delayed release 81 mg PO DAILY@0800 12/27/13 atorvastatin 40 mg tablet 40 mg PO QHS 12/27/13 isosorbide mononitrate 60 mg tablet,extended release 24 hr 60 mg PO DAILY #90 tabs 08/10/20 olopatadine 0.2 % eye drops (Pataday) 1 drp ophthalmic (eye) DAILY 08/29/20 metoprolol succinate 50 mg tablet,extended release 24 hr 25 mg PO BID 08/21/21 melatonin 5 mg capsule 5 mg PO QHS PRN Sleep 09/03/22 propylene glycol 0.6 % eye drops (Systane Balance) 1 drp ophthalmic (eye) DAILY PRN Dry Eyes 09/03/22 buspirone 5 mg tablet 5 mg PO BID 09/02/23 cholecalciferol (vitamin D3) 125 mcg (5,000 unit) capsule 125 mcg PO DAILY 09/02/23 apixaban 5 mg tablet (Eliquis) 5 mg PO BID 04/22/25 cetirizine 10 mg tablet (All Day Allergy (cetirizine)) 10 mg PO QDAY PRN allergy symptoms 04/22/25 clonidine HCl 0.1 mg tablet 0.1 mg PO BID PRN blood pressure 04/22/25 furosemide 20 mg tablet 40 mg PO DAILY 04/22/25 lisinopril 40 mg tablet 30 mg PO DAILY 04/22/25 magnesium 200 mg tablet 400 mg PO DAILY supplement 06/24/25 nitroglycerin 0.4 mg sublingual tablet 0.4 mg sublingual Q5-15M PRN chest pain #25 tabs 06/24/25 omeprazole 40 mg capsule,delayed release 40 mg PO BID GERD 06/28/25 Hospital Course Summary of Care Provided Minutes Spent on Discharge: 32 Physical Exam Narrative GENERAL: cooperative HEENT: Atraumatic; normocephalic EYES; Anicteric, Normal Conjunctiva NECK; supple, normal thyroid, RESPIRATORY: Diminished to auscultation CARDIOVASCULAR: Regular S1 S2, GI: soft, normoactive bowel sounds, : No Renal angle tenderness; EXTREMITIES: No edema, no clubbing, MUSCULOSKELETAL: no muscle wasting NEURO: Awake; no lateralizing signs. SKIN: No Rash PSYCH; Flat affect Weight / BMI Weight Weight: 61.9 kg Body Mass Index (BMI) 27.6 ABG / Lab / Microbiology Data 06/29/25 04:48 06/29/25 04:48 Laboratory: Laboratory Results - last 24 hr 06/28/25 17:21: WBC 4.1 L, RBC 4.29, Hgb 12.6, Hct 39.5, MCV 92.1, MCH 29.4, MCHC 31.9 L, RDW Std Deviation 50.8 H, RDW Coeff of Daphnie 15.0 H, Plt Count 137 L, MPV 11.1, Immature Gran % (Auto) 0.200, Neut % (Auto) 61.4, Lymph % (Auto) 26.7, [place] % (Auto) 9.0, Eos % (Auto) 1.2, Baso % (Auto) 1.5 H, Absolute Neuts (auto) 2.5, Absolute Lymphs (auto) 1.09, Nucleated RBC % 0, PT 16.6 H, INR 1.3, Sodium 141, Potassium 3.5, Chloride 104, Carbon Dioxide 27.2, Anion Gap 11, BUN 16, Creatinine 0.98, Estim Creat Clear Calc 37.52 L, Est GFR (MDRD) Non-Af 57 L, BUN/Creatinine Ratio 16.7, Glucose 119 H, Calcium 9.3, Troponin T High Sens 30 H 06/28/25 19:24: Troponin T Hi Sens 2 Hr 32 H 06/28/25 21:12: Magnesium 2.1, Troponin T Hi Sens 4Hr 37 H 06/29/25 04:48: WBC 3.6 L, RBC 3.65 L, Hgb 10.8 L, Hct 33.6 L, MCV 92.1, MCH 29.6, MCHC 32.1, RDW Std Deviation 50.2 H, RDW Coeff of Daphnie 14.8 H, Plt Count 112 L, MPV 11.2, Immature Gran % (Auto) 0.300, Neut % (Auto) 68.1, Lymph % (Auto) 22.3, [place] % (Auto) 7.7, Eos % (Auto) 0.8, Baso % (Auto) 0.8, Absolute Neuts (auto) 2.5, Absolute Lymphs (auto) 0.81 L, Nucleated RBC % 0, Sodium 140, Potassium 3.7, Chloride 106, Carbon Dioxide 27.1, Anion Gap 7, BUN 16, Creatinine 0.85, Estim Creat Clear Calc 41.21 L, Est GFR (MDRD) Non-Af 68, BUN/Creatinine Ratio 18.8, Glucose 127 H, Calcium 8.7, Total Bilirubin 0.73, AST 33 H, ALT 31, Alkaline Phosphatase 102, Total Protein 4.7 L, Albumin 3.1 L, Globulin 1.6 L, Albumin/Globulin Ratio 1.9, Triglycerides 73, Cholesterol 78, LDL Cholesterol, Calc 24, VLDL Cholesterol 15, HDL Cholesterol 40, Cholesterol/HDL Ratio 1.96 Radiography Diagnostic Testing: Radiology Impression Chest X-Ray 06/28/25 17:20 IMPRESSION: Mild pulmonary vascular congestion and interstitial edema. No focal consolidation. Mild cardiomegaly, stable. Reading Location: [facility] D/C Instructions Discharge Activity: Return to Normal Activity Call your doctor if you observe: Fever of 101 or Higher, Shortness of breath, Fainting spells and Chest pain DC O2, CPAP, BIPAP Needs Home O2 Discharge instructions: No Meaningful Use Info Meaningful Use Meaningful Use Diagnoses (Choose all that apply): None applicable Discharge Plan Admission Admit Date/Time: 06/28/25 20:36 Attending Provider: Anthony Mays Primary Care Provider: Care Physician,No Primary Consulting Providers: Mary Gregory Discharge Orders/Prescriptions Prescriptions: Continued isosorbide mononitrate 60 mg tablet extended release 24 hr 60 mg PO DAILY Qty: 90 3RF olopatadine [Pataday] 0.2 % drops 1 drp OPHTHALMIC DAILY metoprolol succinate 50 mg tablet extended release 24 hr 25 mg PO BID melatonin 5 mg capsule 5 mg PO QHS PRN (Reason: Sleep) Systane Balance 0.6 % drops 1 drp ophthalmic (eye) DAILY PRN (Reason: Dry Eyes) furosemide 20 mg tablet 40 mg PO DAILY buspirone 5 mg tablet 5 mg PO BID cholecalciferol (vitamin D3) 125 mcg (5,000 unit) capsule 125 mcg PO DAILY lisinopril 40 mg tablet 30 mg PO DAILY Eliquis 5 mg tablet 5 mg PO BID clonidine HCl 0.1 mg tablet 0.1 mg PO BID PRN (Reason: blood pressure) Patient Comments: is blood pressure goes over 170 systolic cetirizine [All Day Allergy (cetirizine)] 10 mg tablet 10 mg PO QDAY PRN (Reason: allergy symptoms) magnesium 200 mg tablet 400 mg PO DAILY nitroglycerin 0.4 mg tablet, sublingual 0.4 mg SUBLINGUAL Q5-15M PRN (Reason: chest pain) Qty: 25 3RF Rx Instructions: until response; do not exceed 3 doses per episode atorvastatin 40 MG tablet 40 mg PO QHS aspirin 81 MG tablet 81 mg PO DAILY@0800 omeprazole 40 mg capsule,delayed release(DR/EC) 40 mg PO BID Referrals / Follow Up: Demetrice Sung MD [Non-Staff] - Within 1 Week Care Physician,No Primary [Primary Care Provider] - Disposition Disposition (needs filled in before D/C Order can be placed): Home, Self Care Charges/Coding Visit Charges Inpatient E&M: 64220 Disch Hosp >30min
[2025-06-29] MEDS: APIXABAN 5 MG TABLET PO (13:28)
[2025-06-29] MEDS: OMEPRAZOLE 40 MG CAPSULE.DR PO (13:45)
--- NOTE | 2025-06-29 14:12 | CASEMGMT ---
Social Work SW met with pt who provided SW with copy of her living will. SW placed copy in pt medical record. Pt requesting to complete new HCPOA as current POA names pt's dgt. SW assisted pt in completing a new HCPOA naming her son Prabhjot Lee. Original given to pt and copy placed on pt chart. ZARI King
--- NOTE | 2025-06-29 14:18 | PHA.DC_ITS ---
Pharmacy [facility] Reconciliation Pharmacy Service has performed discharge medication reconciliation for this patient. The patient's discharge medication list was reviewed for discrepancies and discrepancies were resolved. Medications at Discharge Home Medications aspirin 81 mg tablet,delayed release 81 mg PO DAILY@0800 heart health 12/27/13 atorvastatin 40 mg tablet 40 mg PO QHS cholesterol 12/27/13 isosorbide mononitrate 60 mg tablet,extended release 24 hr 60 mg PO DAILY heart health #90 tabs 08/10/20 olopatadine 0.2 % eye drops (Pataday) 1 drp ophthalmic (eye) DAILY eye health 08/29/20 metoprolol succinate 50 mg tablet,extended release 24 hr 25 mg PO BID blood pressure 08/21/21 melatonin 5 mg capsule 5 mg PO QHS PRN Sleep 09/03/22 propylene glycol 0.6 % eye drops (Systane Balance) 1 drp ophthalmic (eye) DAILY PRN Dry Eyes 09/03/22 buspirone 5 mg tablet 5 mg PO BID mental health 09/02/23 cholecalciferol (vitamin D3) 125 mcg (5,000 unit) capsule 125 mcg PO DAILY vitamin 09/02/23 apixaban 5 mg tablet (Eliquis) 5 mg PO BID blood thinner 04/22/25 cetirizine 10 mg tablet (All Day Allergy (cetirizine)) 10 mg PO QDAY PRN allergy symptoms 04/22/25 clonidine HCl 0.1 mg tablet 0.1 mg PO BID PRN blood pressure 04/22/25 furosemide 20 mg tablet 40 mg PO DAILY diuretic 04/22/25 lisinopril 40 mg tablet 30 mg PO DAILY blood pressure 04/22/25 magnesium 200 mg tablet 400 mg PO DAILY supplement 06/24/25 nitroglycerin 0.4 mg sublingual tablet 0.4 mg sublingual Q5-15M PRN chest pain #25 tabs 06/24/25 omeprazole 40 mg capsule,delayed release 40 mg PO BID GERD 06/28/25
--- NOTE | 2025-06-29 14:27 | CASEMGMT ---
Social Work SW provided the patient a rack card with PCP information. Patient currently does not have a PCP. RICCARDO Jules
[2025-06-29 14:31] LABS: D-Dimer Quantitative (DVT/PE) 0.27 FEU/ug/m (0.27-0.49)
--- NOTE | 2025-06-29 15:50 | CHAPLAIN ---
Type of Pastoral Visit _x__ Initial Visit ___ Follow-up Visit ___ On-call Visit ___ General Patient Visit ___ Spiritual Assessment ___ Family Conference ___ Bereavement ___ Rapid Response ___ Code Blue ___ Other (describe below) Pastoral Care Referral From _x__ Patient ___ Family ___ Nurse ___ Physician ___ Hvac Design Mechanical Engineer ___ Transportation Refrigeration Technician ___ Other (describe below) Sacrament/Intervention _x__ Active listening ___ Anointing ___ Episcopal ___ Bereavement ___ Communion _x__ Le exploration ___ ___ Life review _x__ Prayer ___ Reconciliation ___ Sacrament of Sick _x__ Supportive presence ___ Wedding ___ Other (describe below) Pastoral Comments patient is resting in bed but is easily awakened when her name is called; granddaughter is sitting in the corner and focused on her phone; granddaughter is greeted but she continues on phone; pt states that she 'is still not feeling right but that 'they' can't find anything from the tests; pt says she wants to go home but is just not sure about her situation; pt is asked about those people or things in her life that are helpful and can give her more peace; pt has some hesitancy about naming things or isn't sure about the question; repeated in another way and the patient states that she does have family but again is unable to be specific about coping abilities; pt says that she prays every night but I'm not sure really how to pray; discussion on prayer and giving assurance of God being present in her life and situation; pt welcomes prayer to be spoken now
--- NOTE | 2025-06-29 16:21 | CASEMGMT ---
Patient has order for discharge. RN CM in to discuss needs at discharge, granddaughter at bedside. Patient states her PCP retired and she has an appt on 08/05/[address] Crowley in [place]. JULIO FLOREZ encourage patient and granddaughter to call Dr Perez's office to inquire if patient could be seen for hospital follow-up prior to 08/05 appt. Granddaughter voiced understanding. Patient and granddaughter had no further questions or concenrs.
== END 2025-06-29 16:52 | disposition home or self-care (01) ==
LOC: ED 19:41 → PCU 21:04
PROVIDERS: Admitting Provider Family Medicine; Emergency Provider Emergency Medicine; Visit Provider Internal Medicine
DX: R07.89 Other chest pain (principal); I27.21 Secondary pulmonary arterial hypertension; I48.0 Paroxysmal atrial fibrillation; K21.9 Gastro-esophageal reflux disease without esophagitis; I25.10 Atherosclerotic heart disease of native coronary artery without angina pectoris; Z79.899 Other long term (current) drug therapy; Z87.891 Personal history of nicotine dependence; E78.5 Hyperlipidemia, unspecified; Z95.5 Presence of coronary angioplasty implant and graft; I10 Essential (primary) hypertension; I25.2 Old myocardial infarction; Z79.01 Long term (current) use of anticoagulants; R60.0 Localized edema; Z79.82 Long term (current) use of aspirin; F41.9 Anxiety disorder, unspecified; D69.6 Thrombocytopenia, unspecified; I16.1 Hypertensive emergency
CPT/HCPCS: 36415; 71045; 78452; 80048; 80053; 80061; 83735; 84484; 85025; 85379; 85610; 93005; 93017; 96361; 96374; 96375; 99221; 99285; A9500; A4216; G0378; J2405; J2785

== ENCOUNTER 2025-07-01 18:24 | Emergency (ER) | payer MEDICARE, SELFPAY ==
[2025-07-01] VITALS (8 sets, daily range): BP systolic 168–216; BP diastolic 87–104; PULSE 83–100; RESP 15–28; TEMP 36.6; O2SAT 87–98; BMI 28.1
--- NOTE | 2025-07-01 18:38 | EKG12_ITS ---
Test Reason : CHEST PAIN Blood Pressure : */* mmHG Vent. Rate : 104 BPM Atrial Rate : 104 BPM P-R Int : 112 ms QRS Dur : 68 ms QT Int : 352 ms P-R-T Axes : 37 -7 -9 degrees QTcB Int : 462 ms Critical Test Result: Arrhythmia Sinus tachycardia with frequent and consecutive Premature ventricular complexes Minimal voltage criteria for LVH, may be normal variant ( R in aVL ) Abnormal ECG Confirmed by DELFINA MAGANA, MARISOL ([id number]), order editor LINA ALEJANDRO ([id number]) on 07/04/2025 9:13:22 AM Referred By: SCOUT Confirmed By: MARISOL MATHIS MD
--- NOTE | 2025-07-01 18:50 | RAD_ITS ---
PROCEDURE: CHEST 1 VIEW (PORTABLE) 07/01/2025 REASON FOR EXAM: CHEST PAIN TECHNIQUE: Frontal view of the chest. COMPARISON: 06/28/2025 FINDINGS: Hardware: None. Heart: Heart size is mildly enlarged but stable. Lungs: Persistent mild pulmonary vascular congestion. No definite focal consolidation, pneumothorax, or sizable pleural effusion. Bones: The bones are unremarkable. RAD/Chest 1 View (Portable) IMPRESSION: Stable mild cardiomegaly and mild pulmonary vascular congestion. [facility]
--- NOTE | 2025-07-01 19:24 | ED.VIS.CHEST ---
HPI History of Present Illness Chief Complaint: Chest Pain Narrative Narrative: 85-year-old female past medical history of hypertension presents with her granddaughter for chest burning that she has been having for weeks. Of note, it has been happening previously. She has been seen by gastroenterology. She states that her change from carvedilol to metoprolol may have increased her problems. They state that she was seen in the emergency department on Friday, 3 days ago and admitted. She had a stress test performed which was negative. They ruled out that she was having any cardiac problems of her chest pain and burning. She is already on omeprazole. She states that the morphine helped her last time and relieved her pain previously. She presents because she is having continued chest burning even after her release from the hospital and workup on Friday, 2 days ago. Prior Similar Symptoms: Yes PFSH PFSH Medical History PAF (paroxysmal atrial fibrillation) Kidney stones Unstable angina Bilateral carotid artery stenosis GERD (gastroesophageal reflux disease) Essential (primary) hypertension Dysphagia Celiac artery stenosis Acute right hip pain LVH (left ventricular hypertrophy) Renal cysts, acquired, bilateral History of Helicobacter pylori infection Osteoarthritis History of bacterial pneumonia Hemorrhoids Diverticulosis Secondary pulmonary arterial hypertension NSTEMI (non-ST elevated myocardial infarction) Carotid bruit HLD (hyperlipidemia) Atherosclerotic heart disease of [place] coronary artery without angina pectoris Home Medications ?Medication ?Instructions ?Recorded ?Last Taken ?Type aspirin 81 mg tablet,delayed 81 mg PO DAILY@0800 heart health 12/27/13 06/28/25 History release atorvastatin 40 mg tablet 40 mg PO QHS cholesterol 12/27/13 06/27/25 History isosorbide mononitrate 60 mg 60 mg PO DAILY heart [id number] 08/10/20 06/28/25 Rx tablet,extended release 24 hr tabs olopatadine 0.2 % eye drops 1 drp ophthalmic (eye) DAILY eye 08/29/20 06/28/25 History ([facility]) health metoprolol succinate 50 mg 25 mg PO BID blood pressure 08/21/21 06/28/25 08:00 History tablet,extended release 24 hr melatonin 5 mg capsule 5 mg PO QHS PRN Sleep 09/03/22 06/27/25 History propylene glycol 0.6 % eye drops 1 drp ophthalmic (eye) DAILY PRN 09/03/22 06/27/25 History (Systane Balance) Dry Eyes buspirone 5 mg tablet 5 mg PO BID mental health 09/02/23 06/28/25 08:00 History cholecalciferol (vitamin D3) 125 125 mcg PO DAILY vitamin 09/02/23 06/28/25 History mcg (5,000 unit) capsule apixaban 5 mg tablet (Eliquis) 5 mg PO BID blood thinner 04/22/25 06/28/25 08:00 History cetirizine 10 mg tablet (All Day 10 mg PO QDAY PRN allergy symptoms 04/22/25 06/26/25 History Allergy (cetirizine)) clonidine HCl 0.1 mg tablet 0.1 mg PO BID PRN blood pressure 04/22/25 06/21/25 History furosemide 20 mg tablet 40 mg PO DAILY diuretic 04/22/25 06/28/25 History lisinopril 40 mg tablet 30 mg PO DAILY blood pressure 04/22/25 06/28/25 History magnesium 200 mg tablet 400 mg PO DAILY supplement 06/24/25 Unknown History nitroglycerin 0.4 mg sublingual 0.4 mg sublingual Q5-15M PRN chest 06/24/25 06/28/25 Rx tablet pain #25 tabs omeprazole 40 mg capsule,delayed 40 mg PO BID GERD 06/28/25 06/28/25 History release Allergy/AdvReac Type Severity Reaction Status Date / Time pantoprazole Allergy Rash Verified 07/01/25 18:32 hydrocodone bitartrate (From AdvReac Other Verified 07/01/25 18:32 Vicodin) metronidazole AdvReac nausea Verified 07/01/25 18:32 tramadol AdvReac Nausea Verified 07/01/25 18:32 Family History Father Cancer Mother , Unknown medical history, notes she was raised in a children's home. No problems noted. Surgical History Hx of cataract extraction History of esophagogastroduodenoscopy (EGD) History of left heart catheterization (06/2018) History of bladder surgery historybladder surgery History of hysterectomy History of tubal ligation History of laparoscopic appendectomy History of laparoscopic cholecystectomy History of excision of pilonidal cyst History of coronary artery stent placement (12/07/12) Social History household members: none Smoking Status: Former smoker alcohol intake: never substance use type: does not use caffeine: Yes what type of physical activity do you participate in: none frequency: does not exercise seatbelt use: always ROS ROS ED ROS Narrative Review of systems positive for chest burning all across chest. No nausea or vomiting, no exacerbating or alleviating factors. No fevers or chills. Same chest burning for which she was admitted for a few days ago and has been having for the last few weeks if not longer. EXAM Physical Exam Narrative Exam Narrative: Afebrile. Vital signs noted. Nontoxic-appearing. Cardiovascular examination reveals a regular rate and rhythm. Lungs are clear to auscultation bilaterally. The abdomen is soft and nontender without guarding or rebound. Positive bowel sounds. Neurological examination nonfocal, nonlateralizing. Const Vital Signs: 07/01/25 18:25 07/01/25 20:00 07/01/25 20:01 Temperature 98 F Temperature Source Oral Pulse Rate 100 93 Respiratory Rate 18 28 H Respiratory Effort Respiratory Pattern Blood Pressure 180/95 H 190/87 H Blood Pressure Mean 123 121 Pulse Ox 98 95 92 Oxygen Delivery Method Room Air Room Air 07/01/25 20:26 07/01/25 20:32 07/01/25 20:56 Temperature Temperature Source Pulse Rate 83 Respiratory Rate 15 Respiratory Effort Normal Non-Labored Respiratory Pattern Normal Blood Pressure 190/87 H 216/88 H Blood Pressure Mean 121 122 Pulse Ox 96 92 Oxygen Delivery Method Room Air 07/01/25 21:00 07/01/25 21:15 07/01/25 21:45 Temperature 98 F Temperature Source Pulse Rate 86 90 Respiratory Rate 19 H 18 Respiratory Effort Respiratory Pattern Blood Pressure 197/104 H 168/92 H Blood Pressure Mean 126 117 Pulse Ox 87 90 97 Oxygen Delivery Method MDM MDM MDM Narrative Medical decision making narrative: I reviewed the patient's prior ED visit as well as her stress test which were negative. Her troponins were negative. I had a lengthy discussion with her as well. She said the same thing on her last ED visit that she has tried GI cocktails previously and they are ineffective. She already takes omeprazole 40 mg twice a day. 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 Protocol labs have been entered per RN. She was administered morphine for her chest burning. She declined all other medications. Chest x-ray was obtained and interpreted by myself independently as cardiomegaly with mild vascular congestion but no consolidation or pneumothorax. I reviewed the radiology report which confirms my independent interpretation. In review of her laboratory work she has normal white count of 4.9 with hemoglobin 12.4, hematocrit 37.5, platelet count 186. When compared to prior no significant change. BMP is grossly unremarkable except for glucose of 115 with a normal anion gap of 12. High-sensitivity troponin is 36. When compared to prior was 30. Additionally, she had a normal stress test performed within the last week/few days. At this point in time, I had a lengthy discussion with the patient and her grandchild. She states she has already been seen by gastroenterology, she does not want GI cocktails and is mildly insistent that her change from carvedilol to metoprolol might be causing her problems. She was advised to discuss this with the doctor who changed her from carvedilol to metoprolol. I do not feel that she requires observation as she was recently admitted to the hospital and had negative stress test. I am unsure as to the cause of her burning chest pain but feel she should follow-up with a primary care provider. She states she cannot make it to [place] so she was referred to a primary care provider on-call that is more local. She inquired about sleeping aid as well, and when I suggested melatonin, she states she already takes it. At this point in time, she will be discharged to follow-up with her physicians. Disposition is discharged home in stable condition. History & Record Review Discussion w/independent historian: Patient and Family Additional record(s) reviewed:: Prior inpatient record and Prior ED visit Lab Data Attestation: I reviewed the patient's lab results. Labs: Laboratory Results - last 24 hr 07/01/25 19:34 WBC 4.9 RBC 4.17 L Hgb 12.4 Hct 37.5 MCV 89.9 MCH 29.7 MCHC 33.1 RDW Std Deviation 49.7 H RDW Coeff of [place] 15.0 H Plt Count 186 MPV 12.1 H Immature Gran % (Auto) 0.200 Neut % (Auto) 66.6 Lymph % (Auto) 21.7 [place] % (Auto) 9.7 Eos % (Auto) 1.0 Baso % (Auto) 0.8 Absolute Neuts (auto) 3.3 Absolute Lymphs (auto) 1.07 Nucleated RBC % 0 Sodium 140 Potassium 3.9 Chloride 103 Carbon Dioxide 25.2 Anion Gap 12 BUN 18 Creatinine 0.96 Estim Creat Clear Calc 36.85 L Est GFR (MDRD) Non-Af 59 L BUN/Creatinine Ratio 18.5 Glucose 115 H Calcium 9.1 Troponin T High Sens 36 H D Radiography Chest X-Ray - ED: 1 View, Read by ED Physician, Read by Radiologist and Cardiomegaly Diagnostic Testing: Clinical Impression(s) from Imaging Studies Chest X-Ray 07/01/25 18:50 IMPRESSION: Stable mild cardiomegaly and mild pulmonary vascular congestion. Reading Location: [facility] Discharge Plan Triage Chief Complaint: Chest Pain ED Provider: Christiano Atkins Dx/Rx/DC Orders Clinical Impression: Burning chest pain, Hypertension Instructions: ED Chest Pain, Uncertain Cause, ED High Blood Pressure Hypertension Prescriptions: No Action isosorbide mononitrate 60 mg tablet extended release 24 hr 60 mg PO DAILY Qty: 90 3RF olopatadine [Pataday] 0.2 % drops 1 drp OPHTHALMIC DAILY metoprolol succinate 50 mg tablet extended release 24 hr 25 mg PO BID melatonin 5 mg capsule 5 mg PO QHS PRN (Reason: Sleep) Systane Balance 0.6 % drops 1 drp ophthalmic (eye) DAILY PRN (Reason: Dry Eyes) furosemide 20 mg tablet 40 mg PO DAILY buspirone 5 mg tablet 5 mg PO BID cholecalciferol (vitamin D3) 125 mcg (5,000 unit) capsule 125 mcg PO DAILY lisinopril 40 mg tablet 30 mg PO DAILY Eliquis 5 mg tablet 5 mg PO BID clonidine HCl 0.1 mg tablet 0.1 mg PO BID PRN (Reason: blood pressure) Patient Comments: is blood pressure goes over 170 systolic cetirizine [All Day Allergy (cetirizine)] 10 mg tablet 10 mg PO QDAY PRN (Reason: allergy symptoms) magnesium 200 mg tablet 400 mg PO DAILY nitroglycerin 0.4 mg tablet, sublingual 0.4 mg SUBLINGUAL Q5-15M PRN (Reason: chest pain) Qty: 25 3RF Rx Instructions: until response; do not exceed 3 doses per episode atorvastatin 40 MG tablet 40 mg PO QHS aspirin 81 MG tablet 81 mg PO DAILY@0800 omeprazole 40 mg capsule,delayed release(DR/EC) 40 mg PO BID Primary Care Provider: Samina Crowley Referrals: Janine Nicholas MD [Med Staff - Operations Research Scientist] - As soon as possible Care Physician,No Primary [Non-Staff] - Activity Restrictions/Additional Instructions: Take your medications as previously directed. Follow-up with a primary care provider. Return with new or worsening symptoms. Print Language: Peruvian Disposition Disposition: Home, Self Care Discharge Date/Time: 07/01/25 21:50
[2025-07-01 19:47] LABS: Hematocrit 37.5 % (37-47); Hemoglobin 12.4 g/dL (12.0-15.0); Immature Granulocytes Count 0.010 X10^3/uL (0.0-0.0); Mean Corp Hgb Conc 33.1 g/dL (32-36); Mean Corpuscular Volume 89.9 fL (81-99); Mean Platelet Vol. 12.1 fl (6.2-12.0); NRBC Flagged by Analyzer 0 % (0-5); Platelet Count 186 K/mm3 (150-450); RBC Distribution Width CV 15.0 % (11.6-14.6); RBC Distribution Width SD 49.7 fl (35.1-43.9); Red Blood Count 4.17 M/mm3 (4.2-5.4); White Blood Count 4.9 K/mm3 (4.4-11.0)
[2025-07-01 20:18] LABS: Anion Gap 12 (5-15); BUN 18 mg/dL (4-19); BUN/Creat Ratio 18.5 RATIO (10-20); Calcium,Total 9.1 mg/dL (7.6-11.0); Carbon Dioxide 25.2 mmol/L (21.0-32.0); Chloride 103 mmol/L (98-108); Estimated Creatinine Clearance 36.85 ml/min (50-250); Glucose 115 mg/dL (70-99); Potassium 3.9 mmol/L (3.3-5.1); Troponin T High Sensitivity 36 ng/L (<=14)
== END 2025-07-01 21:50 | disposition home or self-care (01) ==
PROVIDERS: Emergency Provider Emergency Medicine; PCP Student in an Organized Health Care Education/Training Program; Visit Provider Emergency Medicine
DX: R07.89 Other chest pain (principal); I10 Essential (primary) hypertension; Z87.891 Personal history of nicotine dependence; E78.5 Hyperlipidemia, unspecified; I25.10 Atherosclerotic heart disease of native coronary artery without angina pectoris; Z79.899 Other long term (current) drug therapy; K21.9 Gastro-esophageal reflux disease without esophagitis
CPT/HCPCS: 71045; 80048; 84484; 85025; 93005; 96374; 96375; 99285; A4216